=== PATIENT | female | born 1960 | race Caucasian/White ===

== ENCOUNTER 2019-11-15 22:08 | Emergency (ER) | payer MEDICAID, SELFPAY | END 2019-11-16 01:53 | disposition admitted as inpatient to this hospital (09) | LOC: ER 11-20 09:53 | PROVIDERS: Emergency Provider Emergency Medicine; Family Provider Family Medicine; PCP Family Medicine | DX: F41.9 Anxiety disorder, unspecified (principal); R45.851 Suicidal ideations; F17.210 Nicotine dependence, cigarettes, uncomplicated | CPT/HCPCS: 12345; 36415; 71045; 80053; 80307; 85025; 96372; 99284; 99285; J1885 ==

== ENCOUNTER 2019-11-15 22:08 | Inpatient (IN) | payer MEDICAID, SELFPAY ==
[2019-11-15 22:09] VITALS: BP 150/113; PULSE 94; RESP 18; TEMP 36.5; O2SAT 96; BMI 34.9
--- NOTE | 2019-11-15 22:20 | W.ED.PSYCH ---
HPI - Psych General: Chief Complaint: Psychiatric Symptoms Stated Complaint: MHE Time Seen by Provider: 11/15/19 22:13 Source: patient Mode of arrival: ambulatory Limitations: no limitations History of Present Illness: HPI Narrative: 59-year-old female who states she was living in a skilled nursing and did not like the way they took care of her and had left today. She states that she was supposed to meet her friend at [facility] and went to [facility] and friend did not pick her up. [employer] were called and they brought her here. She denies any suicidality or homicidality. She states she just needs her psych meds refilled. She is able answer all my questions here appropriately. Associated symptoms: Deny depression Review of Systems Const: Denies: fever, chills, body aches or change in appetite Eyes: Denies: blurry vision or eye discomfort ENMT: Denies: throat pain or dental pain Card: Denies: chest pain Resp: Denies: shortness of breath GI: Denies: abdominal pain, nausea, vomiting or diarrhea : Denies: painful urination Musc: Denies: neck pain or back pain Skin/Breast: Denies: rash Neuro: Denies: headache Psych: Reports: anxiety; Denies: depression Beau/Lymph: Denies: easy bruising All/Imm: Denies: hives PFSH ED PFSH: Social History Smoking and tobacco status: current every day smoker Physical Exam Const: COMMON NORMALS: no apparent distress, oriented x3 and healthy appearing HENMT: COMMON NORMALS: normocephalic and head/scalp atraumatic HEAD & SCALP: normocephalic and atraumatic Eye: COMMON NORMALS: PERRL and EOMs intact bilaterally PUPIL: Yes PERRL Neck/C-Spine: COMMON NORMALS: full ROM and supple Chest: COMMONS NORMALS: inspection of chest normal and palpation of chest normal Resp: COMMON NORMALS: normal respiratory effort, no retractions, no use of accessory muscles and clear to auscultation bilaterally AUSCULTATION: clear to auscultation bilaterally Cardio: COMMON NORMALS: regular rate, regular rhythm and no murmurs RATE: regular rate RHYTHM: regular rhythm GI: COMMON NORMALS: normal to inspection, nondistended, normoactive bowel sounds, soft to palpation, non-tender and no masses PALPATION: Yes soft Extremity: COMMON NORMALS: normal to inspection and full ROM Neuro: COMMON NORMALS: oriented x3, moves all extremities and no focal motor deficits Psych: COMMON NORMALS: mental status grossly normal, thought process normal and cooperative MOOD & AFFECT: Yes anxious THOUGHT PROCESS: normal thought process Skin: COMMON NORMALS: no rashes or lesions noted and no wounds GENERAL SKIN EXAM: no rashes or lesions noted MDM - Psych MDM Narrative: Medical decision making narrative: Patient presents here initially wanting a medication refill. Upon discharge patient states that she has been having suicidal thoughts and wants to go to the MPU unit. Patient is voluntarily wants to be placed there. Spoke to Dr. Serra and patient is medically cleared will admit there. Lab Data: Labs: Lab Results 11/15/19 11/15/19 11/16/19 Range/Units 23:48 23:48 00:01 WBC 17.9 H (4.0-10.0) 10^3/ uL RBC 4.96 (4.1-5.3) 10^6/u L Hgb 14.1 (11.5-15.3) g/dL Hct 43.3 (37.0-47.0) % MCV 87.3 (81-99) fL MCH 28.4 (28.0-34.0) pg MCHC 32.6 (30.0-36.0) g/dL RDW 12.9 (12.1-15.1) % Plt Count 363 (130-400) 10^3/c mm MPV 8.6 (7.4-10.4) fL Neut % (Auto) 69.6 % Lymph % (Auto) 19.5 % [place] % (Auto) 8.8 % Eos % (Auto) 1.2 % Baso % (Auto) 0.3 % Neut # (Auto) 12.5 H (1.8-7.7) 10^3/u L Lymph # (Auto) 3.5 (0.8-4.8) 10^3/u L [place] # (Auto) 1.6 H (0.2-0.9) 10^3/u L Eos # (Auto) 0.2 (0.0-0.8) 10^3/u L Baso # (Auto) 0.1 (0.0-0.1) 10^3/u L Nucleated RBC % (a uto) 0 % Nucleated RBCs # 0.0 /100WBC Sodium 137 (136-145) mmol/L Potassium 4.0 (3.5-5.1) mmol/L Chloride 102 (98-107) mmol/L Carbon Dioxide 21 L (22-29) mmol/L Anion Gap 18.0 (5-19) BUN 16 (6-20) mg/dL Creatinine 0.7 (0.5-0.9) mg/dL GFR Calculation 86.2 L (90-130) mL/min Glucose 104 (65-115) mg/dL Calculated Osmolal ity 281 L (285-295) mOsm/k g Calcium 10.1 (8.5-10.5) mg/dL Total Bilirubin 0.6 (0.15-1.2) mg/dL AST 20 (0-32) U/L ALT 17 (0-33) U/L Alkaline Phosphata se 115 H (35-105) IU/L Total Protein 7.5 (6.6-8.7) g/dL Albumin 4.2 (3.5-5.2) g/dL Globulin 3.3 (1.3-4.6) g/dL Urine Color (Yellow) Urine Appearance (CLEAR) Urine pH (5-7) Ur Specific Gravit y (1.005-1.030) Urine Protein (Negative) Urine Glucose (UA) (Normal) Urine Ketones (Negative) Urine Blood (Negative) Urine Nitrate (Negative) Urine Bilirubin (NEGATIVE) Urine Urobilinogen (Negative) mg/dL Ur Leukocyte Rosie ase (Negative) Urine RBC (0-2) /hpf Urine WBC (0-5) /hpf Ur Squamous Epith Cells (0-5) Amorphous Sediment Urine Bacteria (NONE) Salicylates < 0.3 L (3-10) mg/dL Urine Opiates Scre en Negative (Negative) ng/mL Acetaminophen < 5.0 L (10-30) ug/mL Ur Barbiturates Sc reen Negative (Negative) ng/mL Ur Phencyclidine S crn Negative (Negative) ng/mL Ur Amphetamines Sc reen Negative (Negative) ng/mL U Benzodiazepines Scrn Positive H (Negative) ng/mL Urine Cocaine Scre en Negative (Negative) ng/mL U Marijuana (THC) Screen Negative (Negative) ng/mL Ethyl Alcohol < 10 (0-10) mg/dL 11/16/19 Range/Units 00:01 WBC (4.0-10.0) 10^3/ uL RBC (4.1-5.3) 10^6/u L Hgb (11.5-15.3) g/dL Hct (37.0-47.0) % MCV (81-99) fL MCH (28.0-34.0) pg MCHC (30.0-36.0) g/dL RDW (12.1-15.1) % Plt Count (130-400) 10^3/c mm MPV (7.4-10.4) fL Neut % (Auto) % Lymph % (Auto) % [place] % (Auto) % Eos % (Auto) % Baso % (Auto) % Neut # (Auto) (1.8-7.7) 10^3/u L Lymph # (Auto) (0.8-4.8) 10^3/u L [place] # (Auto) (0.2-0.9) 10^3/u L Eos # (Auto) (0.0-0.8) 10^3/u L Baso # (Auto) (0.0-0.1) 10^3/u L Nucleated RBC % (a uto) % Nucleated RBCs # /100WBC Sodium (136-145) mmol/L Potassium (3.5-5.1) mmol/L Chloride (98-107) mmol/L Carbon Dioxide (22-29) mmol/L Anion Gap (5-19) BUN (6-20) mg/dL Creatinine (0.5-0.9) mg/dL GFR Calculation (90-130) mL/min Glucose (65-115) mg/dL Calculated Osmolal ity (285-295) mOsm/k g Calcium (8.5-10.5) mg/dL Total Bilirubin (0.15-1.2) mg/dL AST (0-32) U/L ALT (0-33) U/L Alkaline Phosphata se (35-105) IU/L Total Protein (6.6-8.7) g/dL Albumin (3.5-5.2) g/dL Globulin (1.3-4.6) g/dL Urine Color Yellow (Yellow) Urine Appearance Cloudy (CLEAR) Urine pH 7 (5-7) Ur Specific Gravit y 1.015 (1.005-1.030) Urine Protein Neg (Negative) Urine Glucose (UA) Norm (Normal) Urine Ketones Negative (Negative) Urine Blood Neg (Negative) Urine Nitrate Negative (Negative) Urine Bilirubin Neg (NEGATIVE) Urine Urobilinogen Norm (Negative) mg/dL Ur Leukocyte Rosie ase Negative (Negative) Urine RBC 0-4 H (0-2) /hpf Urine WBC 0-4 H (0-5) /hpf Ur Squamous Epith Cells 0-4 H (0-5) Amorphous Sediment 2+ Urine Bacteria 1+ H (NONE) Salicylates (3-10) mg/dL Urine Opiates Scre en (Negative) ng/mL Acetaminophen (10-30) ug/mL Ur Barbiturates Sc reen (Negative) ng/mL Ur Phencyclidine S crn (Negative) ng/mL Ur Amphetamines Sc reen (Negative) ng/mL U Benzodiazepines Scrn (Negative) ng/mL Urine Cocaine Scre en (Negative) ng/mL U Marijuana (THC) Screen (Negative) ng/mL Ethyl Alcohol (0-10) mg/dL Discharge Plan Discharge Patient Disposition: Admitted As Inpatient Clinical Impression: Anxiety, Suicidal ideation Condition: Stable Referrals: Nicole Louis MD [Primary Care Provider] - 4-7 days Discharge Diet: Advance as tolerated Discharge Activity: Resume usual activity Patient Instructions: Anxiety (ED) Coding Level of Care Code ED Tool Keeper for Dorcas Fwnghia Exam Comprehensive
[2019-11-15] MEDS: LORazepam 1 mg Tablet PO (22:45)
--- NOTE | 2019-11-15 22:56 | PC.NURSE ---
Upon discharge, patient began getting upset stating that she has to be admitted to the psych unit because she has no where to go, no money to pay for the meds, no car to get anywhere. I'm homeless and need to go to the psych unit now. and the doctor didn't do anything about my back. ED physician was notified and spoke with patient again.
[2019-11-15] MEDS: HYDROcodone-acetaminophen 7.5-325 mg Tablet 1 TAB PO (23:10)
[2019-11-16 00:02] LABS: Basophils # 0.1 10^3/uL (0.0-0.1); Basophils % 0.3 %; Eosinophils # 0.2 10^3/uL (0.0-0.8); Eosinophils % 1.2 %; Hematocrit 43.3 % (37.0-47.0); Hemoglobin 14.1 g/dL (11.5-15.3); Lymphocytes # 3.5 10^3/uL (0.8-4.8); Lymphocytes % 19.5 %; Mean Corpuscular HGB Conc 32.6 g/dL (30.0-36.0); Mean Corpuscular Hemoglobin 28.4 pg (28.0-34.0); Mean Corpuscular Volume 87.3 fL (81-99); Mean Platelet Volume 8.6 fL (7.4-10.4); Monocytes # 1.6 10^3/uL (0.2-0.9); Monocytes % 8.8 %; Neutrophils # 12.5 10^3/uL (1.8-7.7); Neutrophils % 69.6 %; Nucleated Red Blood Cells % 0 %; Platelet Count 363 10^3/cmm (130-400); Red Blood Count 4.96 10^6/uL (4.1-5.3); Red Cell Distribution Width 12.9 % (12.1-15.1); White Blood Count 17.9 10^3/uL (4.0-10.0)
--- NOTE | 2019-11-16 00:03 | XR_ITS ---
WS: [id number] PORTABLE CHEST HISTORY: Psychiatric evaluation. Back pain. COMPARISON: 02/02/2019 Mild pulmonary hyperexpansion. No pneumonia. Chronic emphysema. No pleural effusion or pneumothorax. Cardiac size: Normal. Mediastinum/Aorta: Normal mediastinum. Severe degenerative changes at the RIGHT humeral head. Subchondral cystic changes and sclerosis invol ving the humeral head. XR/XR chest 1V portable [id number] IMPRESSION: 1. Chronic emphysema with no pneumonia. 2. Severe degenerative changes at the RIGHT humeral head.
[2019-11-16 00:10] LABS: Alanine Aminotransferase 17 U/L (0-33); Albumin Level 4.2 g/dL (3.5-5.2); Alkaline Phosphatase 115 IU/L (35-105); Aspartate Amino Transferase 20 U/L (0-32); Blood Urea Nitrogen 16 mg/dL (6-20); Calcium 10.1 mg/dL (8.5-10.5); Carbon Dioxide 21 mmol/L (22-29); Chloride 102 mmol/L (98-107); Globulin 3.3 g/dL (1.3-4.6); Glomerular Filtration Rate 86.2 mL/min (90-130); Glucose 104 mg/dL (65-115); Osmolality Calculated 281 mOsm/kg (285-295); Sodium 137 mmol/L (136-145); Total Bilirubin 0.6 mg/dL (0.15-1.2); Total Protein 7.5 g/dL (6.6-8.7)
[2019-11-16 00:26] LABS: Acetaminophen < 5.0 ug/mL (10-30); Alcohol Level < 10 mg/dL (0-10); Salicylate < 0.3 mg/dL (3-10)
[2019-11-16] MEDS: ketorolac 30 mg/mL INJ IM (00:26)
[2019-11-16 00:34] LABS: Amphetamines Screen Urine Negative (Negative); Barbiturates Screen Urine Negative (Negative); Benzodiazepines Screen Urine Positive (Negative); Cocaine Screen Urine Negative (Negative); Opiate Screen Urine Negative (Negative); PCP Screen Urine Negative (Negative); THC Screen Urine Negative (Negative)
[2019-11-16 00:35] LABS: Amorphous Sediment Urine 2+; Bacteria Urine 1+; Bilirubin Urine Neg (NEGATIVE); Blood Urine Neg (Negative); Glucose Urine UA Norm (Normal); Ketones Urine Negative (Negative); Leukocyte Esterase Urine Negative (Negative); Nitrate Urine Negative (Negative); Protein Urine Neg (Negative); RBC Urine 0-4 /hpf (0-2); Specific Gravity, Urine 1.015 (1.005-1.030); Squamous Epithelial Cell Urine 0-4 (0-5); Urine Appearance Cloudy (CLEAR); Urine Color Yellow (Yellow); Urobilinogen Urine Norm (Negative); WBC Urine 0-4 /hpf (0-5); pH Urine 7 (5-7)
--- NOTE | 2019-11-16 01:47 | PC.NURSE ---
Patient belongings placed in plastic bag with C logo and patient sticker. Bags placed in filing cabinet for safe keeping. 2 bags total.
--- NOTE | 2019-11-16 01:47 | PC.NURSE ---
Patient in paper scrub bottoms and gown top due to scrub top not fitting patient.
[2019-11-16 01:59] VITALS: BP 108/76; PULSE 101; RESP 20; TEMP 36.9; O2SAT 97
[2019-11-16] MEDS: quetiapine 300 mg Tablet PO ×2 (02:37→08:18)
[2019-11-16] MEDS: hyDROXYzine 25 mg Capsule 50 MG PO ×2 (02:37→15:10)
[2019-11-16 05:12] VITALS: BP 121/86; PULSE 101; RESP 17; TEMP 36.4; O2SAT 95
[2019-11-16] MEDS: fluoxetine 20 mg Capsule 40 MG PO ×2 (08:17→15:55)
[2019-11-16] MEDS: lamoTRIgine 25 mg Tablet 75 MG PO (08:17)
[2019-11-16] MEDS: buPROPion SR (12 HR) 150 mg Tablet PO ×2 (08:17→17:23)
[2019-11-16] MEDS: acetaminophen 325 mg Tablet 650 MG PO (09:01)
--- NOTE | 2019-11-16 10:06 | P.HP_ITS ---
Providers/Chief Complaint Admitting Physician: Herber Louis MD Primary Care Provider: Nicole Louis MD Chief Complaint: MHE HPI NPU History of Present Illness Chief complaint: ?I?m living in a mcc. I don?t need to be living in a mcc.? History of present illness: Dalila Samuels is a 59-year-old woman who has rejected all friends and family and now finds herself alone and unable to meet her basic needs. She is apparently living in a mcc in [place]. She says that she is capable of living on her own and wants to leave. However no one will help her apply for housing. No one will help her get to her appointments. Yesterday, she was told by a friend that she could come live with a friend. Dalila was able to make it to [facility] to get refills on her medications. It is unclear whether she ever got her medications refilled. But her friend with not come and pick her up. She throw fit. The police brought her to the emergency room. Emergency room staff felt that she would do well to the psychiatric unit. She denies suicidal or homicidal ideation. She admits to being chronically depressed. However she insists that her medications are stable and in insistent that if she doesn?t get her 80 mg of Prozac, she will become clinically depressed tomorrow. She claims that she is on Suboxone but cannot name any physician who was prescribing it. She said that she goes to a pain clinic in [place]. Though she cannot get any assistance in any other aspect of her life, she apparently is able to make monthly trips to [place] and says ?they come and get me.? ER physician note: HPI Narrative: 59-year-old female who states she was living in a mcc and did not like the way they took care of her and had left today. She states that she was supposed to meet her friend at [facility] and went to [facility] and friend did not pick her up. [employer] were called and they brought her here. She denies any suicidality or homicidality. She states she just needs her psych meds refilled. She is able answer all my questions here appropriately. ER Nursing Note: Upon discharge, patient began getting upset stating that she has to be admitted to the psych unit because she has no where to go, no money to pay for the meds, no car to get anywhere. I'm homeless and need to go to the psych unit now. and the doctor didn't do anything about my back. ED physician was notified and spoke with patient again. Mental health history: No prior psychiatric admissions. No record of outpatient treatment. Social history: The patient is reluctant to talk about her personal history other than her current problems and barriers to getting her needs met. She grew up in [place]. She had a sister with whom she was close who last year. With the assistance of social media marketing manager, we were able to find out that she had been in a mcc after she was diagnosed with cellulitis last fall and placed in the intensive care unit. Since that time, she has insisted that people help her to return to independent living. However she has sabotaged his efforts likely through her own obstinance and general attitude of refusal to do what she is told. She now finds herself homeless and without any means of support. Legal history: no history of criminal activity or arrest in [place] [facility]. Mental Status Exam: The patient is encountered sitting in a wheelchair. She is in no apparent physical distress. Eye contact is good. There is no attention to internal stimuli. She is not believed to be a reliable informant as her recall and memory are quite selective. Appearance: hygiene is fair; no gross neurological deficits., gait is unremarkable; AIMS=0 Speech: Speech is of normal rate and rhythm and easily understood. Thought processes: Thought processes are abstract. Judgment is adequate for sa fety. Associations: intact Psychotic processes: There is no indication of guarding or paranoia. There is no attention to the internal stimuli. Auditory and visual hallucinations are denied. Judgment: Insight is fair. Problem solving skills are adequate for safety. Orientation: The patient is oriented to person, place time and situation. Memory: no deficits noted in immediate, intermediate, or remote spheres. Attention: The patient is alert and interpersonally engaged. Language: Verbalizations are coherent. Fund of knowledge: Fund of knowledge is adequate. Affect/Mood: Affect is consistent with a depressed mood. She denied suicidal ideation Affective range constricted Psychosis: perception unimpaired except through cognitive distortion; reality testing intact. Meds NPU Allergies Allergy/AdvReac Type Severity Reaction Status Date / Time Penicillins Allergy ALGY-Rash Verified 11/15/19 22:18 PFSH NPU PFSH: Social History Smoking and tobacco status: current every day smoker Vitals/I&O/Wt Last Vital Signs Temp 97.5 F L 11/16/19 05:12 Pulse 101 H 11/16/19 05:12 Resp 17 11/16/19 05:12 BP 121/86 11/16/19 05:12 Pulse Ox 95 11/16/19 05:12 Weight last 48 hrs Weight 104.326 kg Data NPU : 11/15/19 23:48 11/15/19 23:48 A&P Additional A&P Information Diagnoses: Adjustment disorder with disturbance of mood Assessment: Dalila Samuels is a sad disabled woman who finds herself in a situation in which she has become estranged from anyone that would provide assistance in accomplishing her goals of being released from the mcc in finding a place to live. She has the cognitive ability and the problem-solving skills to accomplish her tasks. That is exemplified by her ability to limit information provided to this provider such that is most likely to provide her with the medications which she desires. Unfortunately, she has personality issues that prevent her from interacting with available services will provide significant benefit in acquiring her goal of independent living. She has now lost her placement and is not capable of managing on her own partially due to the absence of services in the environment of a pandemic.. Treatment plan: Due to the psychiatric conditions and treatment listed in the Assessment and Plan - the patient is not an imminent risk to self or others and, in fact, is free of issues that require psychiatric attention at this time. Her psychosocial issues are considerable and it is reasonable to afford her access to the services available now that she is here. . Will provide a safe and therapeutic environment for patient.. Will continue inpatient treatment to allow for medication adjustment and monitoring. Will stop q15 min safety checks. Will continue current medications and monitor for medication side effects. Monitor patient's mood, sleep, appetite, and behavior closely. Encourage patient to participate in individual and group therapeutic sessions on the felipe. Estimated length of stay 5 days The expected benefits and potential side effects of patient's psychiatric medications were discussed with the patient. The patient understands and consents to treatment. CRITERIA FOR DISCHARGE: stable on medications and no longer an imminent risk Involuntary Hold Information 96 Hour Hold: 96 Hour Involuntary Admission: No Attestations NPU Medical Necessity Statement*: Patient will remain in the hospital of the 4-5 days until we can find a placement that will allow her to remain out of harm's way. Coding Level of Care Code Acute Book Jogger for Dorcas Oliver
[2019-11-16] MEDS: nicotine 21 mg Patch 1 PATCH TRANSDERMA (13:14)
[2019-11-16 14:00] VITALS: BP 102/66; PULSE 96; RESP 20; TEMP 36.9; O2SAT 92
[2019-11-16] MEDS: pregabalin 25 mg Capsule 50 MG PO ×2 (14:17→17:23)
[2019-11-16] MEDS: famotidine 20 mg Tablet PO (14:17)
[2019-11-16] MEDS: lisinopril 10 mg Tablet PO (14:17)
[2019-11-16 20:28] VITALS: BP 107/60; PULSE 98; RESP 17; TEMP 36.6; O2SAT 94
[2019-11-16] MEDS: quetiapine 300 mg Tablet 600 MG PO (20:50)
[2019-11-16] MEDS: blistex lip oint 7 gm Tube 1 APPLIC TOPICAL (21:55)
[2019-11-17] MEDS: pregabalin 25 mg Capsule 50 MG PO ×2 (08:40→14:33)
[2019-11-17] MEDS: fluoxetine 20 mg Capsule 80 MG PO (08:41)
[2019-11-17] MEDS: famotidine 20 mg Tablet PO (08:41)
[2019-11-17] MEDS: lamoTRIgine 25 mg Tablet 75 MG PO (08:42)
[2019-11-17] MEDS: buPROPion SR (12 HR) 150 mg Tablet PO (08:42)
[2019-11-17] MEDS: lisinopril 10 mg Tablet PO (08:42)
[2019-11-17] MEDS: nicotine 2 mg Gum BUCCAL (11:05)
[2019-11-17] MEDS: hyDROXYzine 25 mg Capsule 50 MG PO (13:17)
--- NOTE | 2019-11-17 13:17 | PC.NURSE ---
PRN VISTARIL 50 MG GIVEN PO PER PT C/O ANXIETY. PT DEMANDING WITH STAFF, HIT THE NURSES STATION WINDOW YELLING GIVE ME SOMETHING FOR MY ANXIETY NOW! WILL CONT TO MONITOR.
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
[2019-11-17 14:45] VITALS: BP 107/60; PULSE 98; RESP 17; TEMP 36.6; O2SAT 94
[2019-11-23 14:30] VITALS: BP 107/60; PULSE 98; RESP 17; TEMP 36.6; O2SAT 94
--- NOTE | 2019-11-23 15:05 | PC.NURSE ---
all meds called [facility] to [facility] [place] per physician request, as pt called and stated she never got [facility] scripts.
== END 2019-11-17 17:01 | disposition home or self-care (01) | DRG 882 ==
LOC: ER 23:00 → NP 11-16 01:04
PROVIDERS: Admitting Provider Psychiatry & Neurology Psychiatry; Emergency Provider Emergency Medicine; Family Provider Family Medicine; PCP Family Medicine; Visit Provider Psychiatry & Neurology Psychiatry
DX: F43.24 Adjustment disorder with disturbance of conduct (principal); Z59.0 Homelessness; F32.9 Major depressive disorder, single episode, unspecified; F17.210 Nicotine dependence, cigarettes, uncomplicated
CPT/HCPCS: 12345; 36415; 71045; 80053; 80306; 80307; 81001; 85025; 96372; 99284; J1885

== ENCOUNTER → 2019-12-29 09:58 | Outpatient (BNVA) | payer MEDICAID, SELFPAY | PROVIDERS: Family Provider Family Medicine; PCP Family Medicine; Visit Provider Counselor Professional | DX: F33.2 Major depressive disorder, recurrent severe without psychotic features (principal); Z59.0 Homelessness | CPT/HCPCS: 90791 ==

== ENCOUNTER 2020-02-22 15:51 | Emergency (ER) | payer MEDICAID, SELFPAY ==
[2020-02-22 15:55] VITALS: BP 92/69; PULSE 79; RESP 16; TEMP 36.8; O2SAT 94; BMI 34.9
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
[2020-02-22] MEDS: sulfamethoxazole-trimeth DS 160-800 mg Tablet 1 TAB PO (17:00)
[2020-02-22 17:18] VITALS: BP 157/75; PULSE 81; RESP 17; O2SAT 98
== END 2020-02-22 17:20 | disposition home or self-care (01) ==
LOC: ER 16:29
PROVIDERS: Emergency Provider Emergency Medicine; PCP Family Medicine
DX: G89.29 Other chronic pain (principal); M25.572 Pain in left ankle and joints of left foot; L03.115 Cellulitis of right lower limb; J44.9 Chronic obstructive pulmonary disease, unspecified; Z89.519 Acquired absence of unspecified leg below knee; Z87.891 Personal history of nicotine dependence
CPT/HCPCS: 12345; 99282; 99283

== ENCOUNTER 2020-02-22 18:40 | Emergency (ER) | payer MEDICAID, SELFPAY ==
[2020-02-22 18:52] VITALS: BP 165/77; PULSE 93; RESP 14; TEMP 36.2; O2SAT 100; BMI 34.9
== END 2020-02-22 18:56 | disposition left against medical advice (07) ==
LOC: ER 19:08
PROVIDERS: Emergency Provider Emergency Medicine; PCP Family Medicine
DX: Z53.21 Procedure and treatment not carried out due to patient leaving prior to being seen by health care provider (principal)
CPT/HCPCS: 99281

== ENCOUNTER → 2020-06-24 12:58 | Outpatient (BNVA) | payer MEDICAID, SELFPAY | PROVIDERS: PCP Family Medicine; Referring Provider Family Medicine; Visit Provider Podiatrist Foot & Ankle Surgery | DX: M12.872 Other specific arthropathies, not elsewhere classified, left ankle and foot (principal) | CPT/HCPCS: 73610 ==

== ENCOUNTER 2020-08-01 00:35 | Emergency (ER) | payer MEDICAID, SELFPAY ==
[2020-08-01 00:37] VITALS: BP 165/137; PULSE 92; RESP 16; TEMP 36.9; O2SAT 99; BMI 37.9
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
[2020-08-01] MEDS: amlodipine 10 mg Tablet PO (01:25)
[2020-08-01] MEDS: ketorolac 60 mg/2 mL INJ IM (01:29)
[2020-08-01] MEDS: pregabalin 100 mg Capsule 200 MG PO (01:29)
== END 2020-08-01 01:30 | disposition home or self-care (01) ==
PROVIDERS: Emergency Provider Nurse Practitioner Family; PCP Family Medicine
DX: G89.29 Other chronic pain (principal); M25.572 Pain in left ankle and joints of left foot; J44.9 Chronic obstructive pulmonary disease, unspecified; Z89.519 Acquired absence of unspecified leg below knee; Z87.891 Personal history of nicotine dependence
CPT/HCPCS: 12345; 96372; 99281; 99283; J1885

== ENCOUNTER → 2020-09-02 10:33 | Outpatient (BNVA) | payer MEDICAID, SELFPAY | PROVIDERS: PCP Family Medicine; Visit Provider Family Medicine | DX: M25.572 Pain in left ankle and joints of left foot (principal); K21.9 Gastro-esophageal reflux disease without esophagitis; J41.0 Simple chronic bronchitis; J44.9 Chronic obstructive pulmonary disease, unspecified; Z13.1 Encounter for screening for diabetes mellitus; G89.4 Chronic pain syndrome; M47.816 Spondylosis without myelopathy or radiculopathy, lumbar region; F41.9 Anxiety disorder, unspecified; M47.26 Other spondylosis with radiculopathy, lumbar region; Z13.220 Encounter for screening for lipoid disorders; Z13.6 Encounter for screening for cardiovascular disorders | CPT/HCPCS: 80053; 85025 ==

== ENCOUNTER → 2020-10-23 09:14 | Outpatient (BNVA) | payer MEDICAID, SELFPAY | PROVIDERS: PCP Family Medicine; Visit Provider Family Medicine | DX: K21.9 Gastro-esophageal reflux disease without esophagitis (principal); M25.572 Pain in left ankle and joints of left foot; J41.0 Simple chronic bronchitis; G89.4 Chronic pain syndrome; M47.816 Spondylosis without myelopathy or radiculopathy, lumbar region; Z79.899 Other long term (current) drug therapy | CPT/HCPCS: 80061; 83036 ==

== ENCOUNTER → 2021-01-13 15:03 | Outpatient (BNVA) | payer MEDICAID, SELFPAY | PROVIDERS: PCP Family Medicine; Visit Provider Family Medicine | DX: G89.4 Chronic pain syndrome (principal); M25.572 Pain in left ankle and joints of left foot; J41.0 Simple chronic bronchitis; B18.2 Chronic viral hepatitis C; I73.9 Peripheral vascular disease, unspecified; M47.26 Other spondylosis with radiculopathy, lumbar region; Z89.511 Acquired absence of right leg below knee; Z74.09 Other reduced mobility; Z78.9 Other specified health status; R60.0 Localized edema; K21.9 Gastro-esophageal reflux disease without esophagitis; E78.1 Pure hyperglyceridemia; R11.0 Nausea; M47.816 Spondylosis without myelopathy or radiculopathy, lumbar region | CPT/HCPCS: 80053; 85025; 87522 ==

== ENCOUNTER 2021-05-06 23:43 | Inpatient (IN) | payer MEDICAID, SELFPAY ==
[2021-05-06 23:48] VITALS: BP 115/77; PULSE 103; RESP 28; TEMP 37.2; O2SAT 90; BMI 40.3
--- NOTE | 2021-05-06 23:57 | XRR_ITS ---
PROCEDURE INFORMATION: Exam: XR Chest Exam date and time: 05/06/2021 11:57 PM Age: 61 years old Clinical indication: Cough; Additional info: Dyspnea TECHNIQUE: Imaging protocol: XR of the chest. Views: 1 view. COMPARISON: CR XR chest 1V portable [id number] 11/16/2019 1:04 AM FINDINGS: Lungs: Mild left basilar atelectasis and/or infiltrate and/or effusion. Increased bilateral perihilar opacities and lung opacities most consistent with mild bilateral pneumonia. Pleural spaces: Unremarkable. No pleural effusion. No pneumothorax. Heart/Mediastinum: Unremarkable. No cardiomegaly. Bones/joints: Unremarkable. Other findings: Patient rotation to the right. XR/XR chest 1V portable [id number] IMPRESSION: 1. Mild left basilar atelectasis and/or infiltrate and/or effusion. 2. Increased bilateral perihilar opacities and lung opacities most consistent with mild bilateral pneumonia. Radiation Dose CTDIVOL = (mGy): DLP = (mGy-cm)
--- NOTE | 2021-05-06 23:57 | ECG_ITS ---
[facility] Test Date: 2021-05-06 Pat Name: Dalila Samuels Department: Room: Gender: Female Supervisor Type Photography: : 1960 Requested By: Alejandro Presley Order Number: [id number] Danae MD: Diamond Brewer M.D. Measurements Intervals [place] Rate: 98 P: 58 OR: 184 QRS: 48 QRSD: 102 T: 57 QT: 360 QTc: 461 Interpretive Statements SINUS RHYTHM INTERPRETATION BASED ON A DEFAULT AGE OF 40 YEARS Compared to ECG 01/26/2019 06:12:43 Intraventricular conduction delay no longer present Electronically Signed On 05-07-2021 23:06:20 CDT by Diamond Brewer M.D. [id number]
--- NOTE | 2021-05-06 23:57 | ECG_ITS ---
[facility] Test Date: 2021-05-07 Pat Name: Dalila Samuels Department: Room: Gender: Female Junior Php Developer: : 1960 Requested By: Alejandro Presley Order Number: [id number] Danae MD: Diamond Brewer M.D. Measurements Intervals [place] Rate: 95 P: 61 GA: 175 QRS: 49 QRSD: 106 T: 60 QT: 372 QTc: 470 Interpretive Statements SINUS RHYTHM Compared to ECG 05/06/2021 23:53:27 No significant changes Electronically Signed On 05-07-2021 23:00:56 CDT by Diamond Brewer M.D. [email or web address]
[2021-05-07] VITALS (46 sets, daily range): BP systolic 105–175; BP diastolic 64–120; PULSE 67–106; RESP 19–44; TEMP 36.7–37.6; O2SAT 77–99
[2021-05-07 00:32] LABS: Basophils # 0.1 10^3/uL (0.0-0.1); Basophils % 0.4 %; Eosinophils # 0.2 10^3/uL (0.0-0.8); Eosinophils % 1.2 %; Hematocrit 32.9 % (37.0-47.0); Hemoglobin 10.7 g/dL (11.5-15.3); Lymphocytes # 1.4 10^3/uL (0.8-4.8); Lymphocytes % 9.9 %; Mean Corpuscular HGB Conc 32.5 g/dL (30.0-36.0); Mean Corpuscular Hemoglobin 30.1 pg (28.0-34.0); Mean Corpuscular Volume 92.4 fl (81-99); Mean Platelet Volume 9.3 fL (7.4-10.4); Monocytes % 7.3 %; Neutrophils # 11.17 10^3/uL (1.8-7.7); Neutrophils % 80.3 %; Nucleated Red Blood Cells % 0 %; Platelet Count 309 10^3/cmm (130-400); Red Blood Count 3.56 10^6/uL (4.1-5.3); Red Cell Distribution Width 13.2 % (12.1-15.1); White Blood Count 13.9 10^3/uL (4.0-10.0)
[2021-05-07 00:49] LABS: SARS Covid-2 Antigen Negative (Negative)
[2021-05-07 00:57] LABS: Troponin(5th) Baseline 8 ng/L (0-10)
[2021-05-07 01:07] LABS: Anion Gap 14.9 (5-19); Blood Urea Nitrogen 7 mg/dL (6-20); Carbon Dioxide 23 mmol/L (22-29); Chloride 106 mmol/L (98-107); Glomerular Filtration Rate 126.3 mL/min (90-130); Glucose 124 mg/dL (65-115); INR 1.04 (0.8-1.2); NT Pro B Type Natriuretic Pept 276 pg/mL (0-125); Osmolality Calculated 289 mOsm/kg (285-295); Potassium 3.9 mmol/L (3.5-5.1); Sodium 140 mmol/L (136-145)
[2021-05-07 01:08] LABS: Partial Thromboplastin Time 35.7 SECONDS (23.9-36.7)
[2021-05-07 01:11] LABS: D Dimer 1.22 ug/mIFEU (0-0.59)
[2021-05-07 01:13] LABS: Fibrinogen 562 mg/dL (174-498)
[2021-05-07] MEDS: cefTRIAXone 1,000 MG in sodium chloride 0.9% (plus) 50 ML 100 MG IV (01:14)
[2021-05-07] MEDS: azithromycin 250 mg Tablet 500 MG PO (01:14)
--- NOTE | 2021-05-07 01:27 | CTR_ITS ---
PROCEDURE INFORMATION: Exam: CTA Chest With Contrast Exam date and time: 05/07/2021 1:27 AM Age: 61 years old Clinical indication: Cough and dyspnea and shortness of breath; Prior surgery; Surgery type: Gb; Patient HX: Severe SOB, with cough and dyspnea. History of copd. Struggling to maintain 90 percent spo2 on non-rebreather at 15l. Patient very anxious with substantial labored breathing. Barely able to tolerate laying supine and could not follow breathing instructions well. Best exam obtained. ; Additional info: Rule out pe TECHNIQUE: Imaging protocol: Computed tomographic angiography of the chest with contrast. 3D rendering (Not supervised by radiologist): MIP and/or 3D reconstructed images were created by the technologist. Radiation optimization: All CT scans at this facility use at least one of these dose optimization techniques: automated exposure control; mA and/or kV adjustment per patient size (includes targeted exams where dose is matched to clinical indication); or iterative reconstruction. Contrast material: OMNI 350; Contrast volume: 67 ml; Contrast route: INTRAVENOUS (IV); COMPARISON: CR (CHEST, ) 05/07/2021 12:41 AM RADIATION DOSE METRICS: Total DLP (mGy-cm): 875.21 FINDINGS: Pulmonary arteries: Evaluation of pulmonary arteries is somewhat limited secondary to respiratory motion. No pulmonary embolism. Aorta: No aortic dissection. Other arteries: Atherosclerotic coronary artery calcifications are present. There is mild atherosclerotic disease. Lungs: Hazy bilateral pulmonary opacities, with consolidation in the left lower lobe. Findings may represent community-acquired pneumonia versus COVID-19.. Pleural spaces: Unremarkable. No pneumothorax. No pleural effusion. Heart: Unremarkable. No cardiomegaly. No pericardial effusion. Lymph nodes: Unremarkable. No enlarged lymph nodes. Bones/joints: Unremarkable. No acute fracture. Soft tissues: Unremarkable. CT/CT angio chest PE protcl [id number] IMPRESSION: 1. Hazy bilateral pulmonary opacities, with consolidation in the left lower lobe. Findings may represent community-acquired pneumonia versus COVID-19.. 2. Evaluation of pulmonary arteries is somewhat limited secondary to respiratory motion. 3. No pulmonary embolism. 4. Atherosclerotic disease of the coronary arteries. 5. No aortic dissection. Radiation Dose CTDIVOL = (mGy): DLP = 875.21 (mGy-cm)
[2021-05-07 01:29] LABS: C Reactive Protein 127.4 mg/L (0.0-4.9); Ferritin 277 ng/mL (15-150); Lactate Dehydrogenase 391 U/L (135-214); Magnesium 1.9 mg/dL (1.7-2.3)
[2021-05-07 01:35] LABS: Procalcitonin 0.07 ng/mL (0-0.5)
[2021-05-07 02:11] LABS: NT Pro B Type Natriuretic Pept 284 pg/mL (0-125)
--- NOTE | 2021-05-07 02:28 | ED_ITS ---
HPI - General Adult General: Chief complaint: Shortness of Breath/Dyspnea Stated complaint: SOB Time Seen by Provider: 05/06/21 23:50 History of Present Illness: HPI narrative: Patient is a 61-year-old female history of COPD not currently on home oxygen presents the emergency room for evaluation dyspnea cough, hypoxemia. Patient states that he has not been feeling well for last 2 days has had increasing cough. Today, patient states that she could hardly breathe. Patient denies any fever/chills, nausea/vomiting, or diarrhea. Onset:2 days ago Duration:2 days Location:home Severity:moderate Review of Systems Narrative: Constitutional: No fever, no chills. HEENT: No vision changes CV: No chest pain, no palpitations PULM: +cough, +dyspnea. GI: No abdominal pain, no N/V/D. : No dysuria MSKEL: No muscle pain SKIN: No new rashes, no lesions. NEURO: No headache, no focal weakness. HEME: No visible bruises PSYCH: Normal mood PFSH ED PFSH: Medical History Borderline personality disorder Chronic idiopathic pain syndrome Chronic pain syndrome COPD (chronic obstructive pulmonary disease) DDD (degenerative disc disease), cervical DJD (degenerative joint disease), lumbar GERD (gastroesophageal reflux disease) Hepatitis C, chronic History of intravenous drug abuse Nicotine dependence, cigarettes, with other nicotine-induced disorders Opioid dependence, in remission Other stimulant dependence, in remission Psychiatric care PVD (peripheral vascular disease) with claudication Schizoaffective disorder, bipolar type Surgical History H/O tubal ligation Hx of BKA S/P cholecystectomy S/P tonsillectomy Family History Other CAD (coronary artery disease) Diabetes Lung disease Stroke Social History Smoking and tobacco status: current some day smoker cigarettes Years cigarettes smoked: 40 [ Other cigarette details: Hx of 1 PPD x 40 Years ] Quit status (tobacco): considering quitting Second hand smoke exposure: Yes Smoking risk assessment/counseling performed?: Yes Alcohol intake: former Counseling given: No Counseling given: No Lives independently: Yes Household members: none Marital status: Current occupational status: disabled History of recent travel: No Current gender identity: Female Female Reproductive History: Date of last menstrual period: 10/24/20 Spontaneous abortions: No Physical Exam Narrative: EXAM NARRATIVE: Head: Atraumatic Eyes: PERRL, conjunctiva without injection ENT: Mucous membrane moist NECK: Supple, ROM intact LUNGS: Coarse breath sounds b/l, +rhonchi CV: RRR ABDOMEN: Soft, nontender in all quadrants EXTREMITY: Normal ROM SKIN: No rash or erythema NEURO: Awake and alert, no focal motor deficits PSYCH: Normal mood and affect Course Vital Signs: Vital signs: Vital Signs Temperature 99.0 F 05/09/21 18:00 Pulse Rate 75 05/09/21 20:03 Respiratory Rate 18 05/09/21 20:04 Blood Pressure 119/72 05/09/21 19:00 Pulse Oximetry 92 05/09/21 20:04 MDM - General Adult MDM Narrative: Medical decision making narrative: 61-year-old female with history of COPD presented to emergency room with cough, dyspnea, and hypoxemia. On exam, patient is found to be satting at 80% on room air. Patient does not use home oxygen. Lungs coarse breath sounds with possible rhonchi. X-ray is consistent bilateral pneumonia. CTA chest showed similar finding. Patient has white count of 13.9, treated with azithromycin and ceftriaxone in the emergency room. Patient is Covid negative today. Given Decadron 6 mg and Ventolin for wheezing. Disposition: Admission for increased oxygen requirement. Lab Data: Labs: Lab Results 05/07/21 05/07/21 05/07/21 00:15 00:15 00:15 WBC 13.9 10^3/uL H 10 ^3/uL (4.0-10.0) RBC 3.56 10^6/uL L 10 ^6/uL (4.1-5.3) Hgb 10.7 g/dL L g/dL (11.5-15.3) Hct 32.9 % L % (37.0-47.0) MCV 92.4 fl fl (81-99) MCH 30.1 pg pg (28.0-34.0) MCHC 32.5 g/dL g/dL (30.0-36.0) RDW 13.2 % % (12.1-15.1) Plt Count 309 10^3/cmm 10^3 /cmm (130-400) MPV 9.3 fL fL (7.4-10.4) Neut % (Auto) 80.3 % % Lymph % (Auto) 9.9 % % [place] % (Auto) 7.3 % % Eos % (Auto) 1.2 % % Baso % (Auto) 0.4 % % Neut # (Auto) 11.17 10^3/uL H 1 0^3/uL (1.8-7.7) Lymph # (Auto) 1.4 10^3/uL 10^3/ uL (0.8-4.8) [place] # (Auto) 1.0 10^3/uL H 10^ 3/uL (0.2-0.9) Eos # (Auto) 0.2 10^3/uL 10^3/ uL (0.0-0.8) Baso # (Auto) 0.1 10^3/uL 10^3/ uL (0.0-0.1) Nucleated RBC % (a uto) 0 % % Nucleated RBCs # 0.0 /100WBC /100W BC PT INR APTT Fibrinogen D-Dimer Sodium 140 mmol/L mmol/L (136-145) Potassium 3.9 mmol/L mmol/L (3.5-5.1) Chloride 106 mmol/L mmol/L (98-107) Carbon Dioxide 23 mmol/L mmol/L (22-29) Anion Gap 14.9 (5-19) BUN 7 mg/dL mg/dL (6-20) Creatinine 0.5 mg/dL mg/dL (0.5-0.9) GFR Calculation 126.3 mL/min mL/m in (90-130) Glucose 124 mg/dL H mg/dL (65-115) Calculated Osmolal ity 289 mOsm/kg mOsm/ kg (285-295) Calcium 9.0 mg/dL mg/dL (8.5-10.5) Magnesium Ferritin Lactate Dehydrogen ase Troponin T Gen 5 n g/L Troponin T Baselin e 8 ng/L ng/L (0-10) C-Reactive Protein NT-Pro-B Natriuret Pep 276 pg/mL H pg/mL (0-125) Procalcitonin Hepatitis A IgM Ab Hep Bs Antigen Hep B Core IgM Ab Hepatitis C Antibo dy HIV 1&2 Ab & HIV 1 Ag HIV 1&2 Antibody SARS-CoV-2 Ag (Rap id) 05/07/21 05/07/21 05/07/21 00:15 00:15 00:15 WBC RBC Hgb Hct MCV MCH MCHC RDW Plt Count MPV Neut % (Auto) Lymph % (Auto) [place] % (Auto) Eos % (Auto) Baso % (Auto) Neut # (Auto) Lymph # (Auto) [place] # (Auto) Eos # (Auto) Baso # (Auto) Nucleated RBC % (a uto) Nucleated RBCs # PT 13.90 SECONDS SEC ONDS (12.1-14.9) INR 1.04 (0.8-1.2) APTT 35.7 SECONDS SECO NDS (23.9-36.7) Fibrinogen 562 mg/dL H mg/dL (174-498) D-Dimer 1.22 ug/mIFEU H u g/mIFEU (0-0.59) Sodium Potassium Chloride Carbon Dioxide Anion Gap BUN Creatinine GFR Calculation Glucose Calculated Osmolal ity Calcium Magnesium 1.9 mg/dL mg/dL (1.7-2.3) Ferritin 277 ng/mL H ng/mL (15-150) Lactate Dehydrogen ase 391 U/L H U/L (135-214) Troponin T Gen 5 n g/L Cancelled Troponin T Baselin e C-Reactive Protein 127.4 mg/L H mg/L (0.0-4.9) NT-Pro-B Natriuret Pep Procalcitonin 0.07 ng/mL ng/mL (0-0.5) Hepatitis A IgM Ab Hep Bs Antigen Hep B Core IgM Ab Hepatitis C Antibo dy HIV 1&2 Ab & HIV 1 Ag HIV 1&2 Antibody SARS-CoV-2 Ag (Rap id) 05/07/21 05/07/21 05/07/21 00:15 00:15 00:15 WBC RBC Hgb Hct MCV MCH MCHC RDW Plt Count MPV Neut % (Auto) Lymph % (Auto) [place] % (Auto) Eos % (Auto) Baso % (Auto) Neut # (Auto) Lymph # (Auto) [place] # (Auto) Eos # (Auto) Baso # (Auto) Nucleated RBC % (a uto) Nucleated RBCs # PT INR APTT Fibrinogen D-Dimer Sodium Potassium Chloride Carbon Dioxide Anion Gap BUN Creatinine GFR Calculation Glucose Calculated Osmolal ity Calcium Magnesium Ferritin Lactate Dehydrogen ase Troponin T Gen 5 n g/L Troponin T Baselin e C-Reactive Protein NT-Pro-B Natriuret Pep 284 pg/mL H pg/mL (0-125) Procalcitonin Hepatitis A IgM Ab Non-reactive (Nonreactive) Hep Bs Antigen Non-reactive (Nonreactive) Hep B Core IgM Ab Non-reactive (Nonreactive) Hepatitis C Antibo dy Reactive H (Nonreactive) HIV 1&2 Ab & HIV 1 Ag Non-reactive (Non-Reactiv) HIV 1&2 Antibody Non-reactive (Non-Reactiv) SARS-CoV-2 Ag (Rap id) 05/07/21 00:16 WBC RBC Hgb Hct MCV MCH MCHC RDW Plt Count MPV Neut % (Auto) Lymph % (Auto) [place] % (Auto) Eos % (Auto) Baso % (Auto) Neut # (Auto) Lymph # (Auto) [place] # (Auto) Eos # (Auto) Baso # (Auto) Nucleated RBC % (a uto) Nucleated RBCs # PT INR APTT Fibrinogen D-Dimer Sodium Potassium Chloride Carbon Dioxide Anion Gap BUN Creatinine GFR Calculation Glucose Calculated Osmolal ity Calcium Magnesium Ferritin Lactate Dehydrogen ase Troponin T Gen 5 n g/L Troponin T Baselin e C-Reactive Protein NT-Pro-B Natriuret Pep Procalcitonin Hepatitis A IgM Ab Hep Bs Antigen Hep B Core IgM Ab Hepatitis C Antibo dy HIV 1&2 Ab & HIV 1 Ag HIV 1&2 Antibody SARS-CoV-2 Ag (Rap id) Negative (Negative) Imaging Data^: Other Imaging: Radiologist's impression: [address] [id number] ReportSigned Patient: Dalila Samuels #: [id number]: 1960c ct#:[id number]/Sex: 61 / FADM Date: 05/06/21Loc: ERRoom/Bed:Attending Dr: Ordering Provider/Ordering MD: Alejandro Presley MD Date of Service: 05/06/21 Procedure(s): XR chest 1V portable [id number] Accession Number(s): [id number] Report Number: [id number] PROCEDURE INFORMATION: Exam: XR Chest Exam date and time: 05/06/2021 11:57 PM Age: 61 years old Clinical indication: Cough; Additional info: Dyspnea TECHNIQUE: Imaging protocol: XR of the chest. Views: 1 view. COMPARISON: CR XR chest 1V portable [id number] 11/16/2019 1:04 AM FINDINGS: Lungs: Mild left basilar atelectasis and/or infiltrate and/or effusion. Increased bilateral perihilar opacities and lung opacities most consistent with mild bilateral pneumonia. Pleural spaces: Unremarkable. No pleural effusion. No pneumothorax. Heart/Mediastinum: Unremarkable. No cardiomegaly. Bones/joints: Unremarkable. Other findings: Patient rotation to the right. XR/XR chest 1V portable [id number] IMPRESSION: 1. Mild left basilar atelectasis and/or infiltrate and/or effusion. 2. Increased bilateral perihilar opacities and lung opacities most consistent with mild bilateral pneumonia. Radiation Dose CTDIVOL = (mGy): DLP = (mGy-cm) Dictated By:Cristhian Andrews MDSigned By:Cristhian Andrews MDSigned Date/Time:05/07/21 0227DD/ [address] [id number] Scan ReportSigned Patient: Dalila Samuels #: [id number]: 2Acct#:[id number]/Sex: 61 / FADM Date: 05/06/21Loc: ERRoom/Bed:Attending Dr: Ordering Provider/Ordering MD: Alejandro Presley MD Date of Service: 05/07/21 Procedure(s): CT angio chest PE protcl [id number] Accession Number(s): [id number] Report Number: [id number] PROCEDURE INFORMATION: Exam: CTA Chest With Contrast Exam date and time: 05/07/2021 1:27 AM Age: 61 years old Clinical indication: Cough and dyspnea and shortness of breath; Prior surgery; Surgery type: Gb; Patient HX: Severe SOB, with cough and dyspnea. History of copd. Struggling to maintain 90 percent spo2 on non-rebreather at 15l. Patient very anxious with substantial labored breathing. Barely able to tolerate laying supine and could not follow breathing instructions well. Best exam obtained. ; Additional info: Rule out pe TECHNIQUE: Imaging protocol: Computed tomographic angiography of the chest with contrast. 3D rendering (Not supervised by radiologist): MIP and/or 3D reconstructed images were created by the technologist. Radiation optimization: All CT scans at this facility use at least one of these dose optimization techniques: automated exposure control; mA and/or kV adjustment per patient size (includes targeted exams where dose is matched to clinical indication); or iterative reconstruction. Contrast material: OMNI 350; Contrast volume: 67 ml; Contrast route: INTRAVENOUS (IV); COMPARISON: CR (CHEST, ) 05/07/2021 12:41 AM RADIATION DOSE METRICS: Total DLP (mGy-cm): 875.21 FINDINGS: Pulmonary arteries: Evaluation of pulmonary arteries is somewhat limited secondary to respiratory motion. No pulmonary embolism. Aorta: No aortic dissection. Other arteries: Atherosclerotic coronary artery calcifications are present. There is mild atherosclerotic disease. Lungs: Hazy bilateral pulmonary opacities, with consolidation in the left lower lobe. Findings may represent community-acquired pneumonia versus COVID-19.. Pleural spaces: Unremarkable. No pneumothorax. No pleural effusion. Heart: Unremarkable. No cardiomegaly. No pericardial effusion. Lymph nodes: Unremarkable. No enlarged lymph nodes. Bones/joints: Unremarkable. No acute fracture. Soft tissues: Unremarkable. CT/CT angio chest PE protcl [id number] IMPRESSION: 1. Hazy bilateral pulmonary opacities, with consolidation in the left lower lobe. Findings may represent community-acquired pneumonia versus COVID-19.. 2. Evaluation of pulmonary arteries is somewhat limited secondary to respiratory motion. 3. No pulmonary embolism. 4. Atherosclerotic disease of the coronary arteries. 5. No aortic dissection. Radiation Dose CTDIVOL = (mGy): DLP = 875.21 (mGy-cm) Dictated By:Monique Pimentel By:Monique Pimentel Date/Time:05/07/21 0421DD/ 0127 Discharge Plan Discharge Patient Disposition: Admitted As Inpatient Admit Provider: Giuliana Ocasio Clinical Impression: Hypoxemia, Dyspnea, COPD exacerbation Pneumonia Qualifiers: Pneumonia type: due to unspecified organism Laterality: bilateral Lung location: unspecified part of lung Qualified Code(s): J18.9 - Pneumonia, unspecified organism Condition: Stable Coding Level of Care Code ED [employer] [facility]
--- NOTE | 2021-05-07 02:29 | PC.NURSE ---
O2 SATS labile; currently 85% on 5L via NC. Placed on NRB.
--- NOTE | 2021-05-07 02:41 | PC.NURSE ---
RT in room; placed pt on high flow NC
[2021-05-07] MEDS: dexamethasone 10 mg/mL INJ 6 MG IVP (02:45)
[2021-05-07 03:04] LABS: ABG PCO2 38.4 mmHg (35-45); ABG PH Result 7.41 (7.35-7.45); Arterial Blood Gas Hematocrit 37.1 % (37-47); Base Excess ABG -0.5 mmol/L (-2.0-2.0); Blood Gas Allen Test Pos; Blood Gas Sample Type Arterial; PO2 ABG 64.5 mmHg (80.0-100.0)
[2021-05-07 03:05] LABS: Blood Gas Sample Site Radial, right; Oxygen Device NRB
[2021-05-07] MEDS: albuterol 8 gm MDI 4 PUFF INHALATION (03:15)
[2021-05-07] MEDS: acetaminophen 500 mg Tablet 1000 MG PO (03:15)
--- NOTE | 2021-05-07 03:28 | PC.NURSE ---
Pt. seems to be having anxiety. Pt states that she cannot breath and that she feels like she is being smothered. Pt. has non rebreather on at 13L of oxygen. Pt. states that she feels like she is not getting oxygen but is moving all around the bed and taking the mask off of her face and holding it close to her nose.
[2021-05-07] MEDS: methylPREDNISolone (DEPO) 80 MG/ML INJ 1 mL IM (03:49)
[2021-05-07] MEDS: iohexol 350 mg/mL 100 mL Btl IV (04:03)
--- NOTE | 2021-05-07 04:16 | PM.HP ---
Providers/Chief Complaint Admitting Physician: Giuliana Ocasio MD Chief Complaint: SOB History of Present Illness Dalila Samuels is a 61 year old female with past medical history as outlined below, chiefly COPD, who presents to the ER with 3 days of fever, states up to 101 Fahrenheit at home, associated with chills, recent cough with expectoration and shortness of breath. States that her home saturation was at 84 to 86% on room air and this is what prompted her ER visit today. At a baseline she states her oxygen requirement stays between 94 to 95%. He has COPD, multiple inhalers at home which she has been trying to use without significant relief. On exam today there is Diffuse wheezing on auscultation bilaterally. He had chest with bilateral groundglass infiltrates concerning for COVID-19 and also left noted left lower lobe consolidation. He is vaccinated with moderna 2 dose mRNA vaccine series 7 months ago. Upon arrival in the ER, she was noted to be hypoxic, placed on 6 L/min supplemental O2 via nasal cannula, which escalated quickly to 15 L of nonrebreather mask. Review of Systems General: Reports: 10 or more systems reviewed and unremarkable except in HPI and below Const: Denies: fever(s), chills or body aches Eyes: Denies: change in vision, blurry vision or photophobia ENMT: Reports: hoarseness; Denies: throat pain, enlarged tonsils, odynophagia or nasal congestion Card: Denies: chest pain, palpitations, irregular heart rhythm, edema, swelling of feet/ankles, lightheadedness, pre-syncope, dyspnea on exertion or orthopnea Resp: Denies: dyspnea, productive cough, non-productive cough, wheezing, stridor, pain on inspiration, change in phlegm color, hemoptysis or chest congestion GI: Denies: abdominal pain, nausea, vomiting, hematemesis, coffee ground emesis, dysphagia, heartburn, diarrhea, constipation, GI cramping, change in stool character, hematochezia or melena : Denies: flank pain, difficulty voiding, dysuria, urinary frequency, urinary urgency, urinary hesitancy or hematuria Musc: Denies: neck pain, back pain, extremity pain, joint swelling, joint warmth or deformity Neuro: Denies: headache(s), numbness in extremities, weakness in extremities, sensory changes, difficulty walking, frequent falls, dizziness, vertigo, behavioral changes, Slurred speech present or seizure-like activity Psych: Denies: anxiety, depression, suicidal ideation or homicidal ideation Endo: Denies: polyuria, polydipsia, tired all the time, cold intolerance or hot flashes Beau/Lymph: Denies: easy bruising or easy bleeding Medications/Allergies Home Medications Medication Instructions Recorded Confirmed Last Taken Type Vitamin D3 1 tab PO QAM #30 cap 11/17/19 04/24/21 Unknown Rx vitamin A 8,000 units PO QAM #30 cap 11/17/19 04/24/21 Unknown Rx miscellaneous medical supply See Rx Instructions MISCELLANEOUS 11/28/19 04/24/21 Unknown Rx .COMPLEX #1 each AFO #1 ea 06/24/20 04/24/21 Unknown Rx varenicline 1 mg tablet 1 mg PO BID #56 tab 11/18/20 04/24/21 Unknown Rx dextromethorphan polistirex 30 10 ml PO Q12H PRN #89 ml 12/11/20 04/24/21 Unknown Rx mg/5 mL oral susp ext.release 12hr albuterol sulfate 2.5 mg INHALATION Q4H PRN #180 ml 01/13/21 04/24/21 Unknown Rx albuterol sulfate 90 mcg/actuation 2 puff INHALATION Q6H PRN 30 Days 01/13/21 04/24/21 Unknown Rx aerosol inhaler #18 gm budesonide 0.5 mg/2 mL suspension 0.5 mg INHALATION BID #60 ml 01/13/21 04/24/21 Unknown Rx for nebulization epinephrine 0.3 mg/0.3 mL 0.3 mg IM Q15M PRN #2 each 01/13/21 04/24/21 Unknown Rx injection, auto-injector miscellaneous medical supply See Rx Instructions MISCELLANEOUS 01/13/21 04/24/21 Unknown Rx .COMPLEX #1 ea omega 9-qdx-xlb-fish oil 1,000 mg 1 cap PO BID 90 Days #180 cap 01/13/21 04/24/21 Unknown Rx (120 mg-180 mg) capsule vits no.129-ferrous fum 1 tab PO DAILY 90 Days #90 tab 01/13/21 04/24/21 Unknown Rx 27 mg iron-folic acid 800 mcg tablet promethazine 12.5 mg tablet 12.5 mg PO DAILY PRN 30 Days #30 01/13/21 04/24/21 Unknown Rx tab bupropion HCl 150 mg tablet,12 hr See Rx Instructions .ROUTE 03/24/21 04/24/21 Unknown Rx sustained-release .COMPLEX #60 tab fluoxetine 40 mg capsule See Rx Instructions .ROUTE 03/24/21 04/24/21 Unknown Rx .COMPLEX #60 cap lamotrigine 100 mg tablet See Rx Instructions .ROUTE 03/24/21 04/24/21 Unknown Rx .COMPLEX #45 tab quetiapine 300 mg tablet See Rx Instructions .ROUTE 03/24/21 04/24/21 Unknown Rx .COMPLEX #60 tab famotidine 20 mg tablet 20 mg PO BID 30 Days #60 tab 03/27/21 04/24/21 Unknown Rx furosemide 20 mg tablet 20 mg PO QAM PRN #30 tab 03/27/21 04/24/21 Unknown Rx ibuprofen 800 mg tablet 800 mg PO TID PRN 30 Days #90 tab 03/27/21 04/24/21 Unknown Rx MDD 2 tabs pregabalin 200 mg capsule 200 mg PO TID 30 Days #90 cap 03/27/21 04/24/21 Unknown Rx umeclidinium 62.5 mcg-vilanterol 1 inh INHALATION DAILY 30 Days #60 04/24/21 04/24/21 Unknown Rx 25 mcg/actuation powdr for ea inhalation Allergies Allergy/AdvReac Type Severity Reaction Status Date / Time Penicillins Allergy ALGY-Rash Verified 04/24/21 09:22 PFSH Acute PFSH: Medical History Borderline personality disorder Chronic idiopathic pain syndrome Chronic pain syndrome COPD (chronic obstructive pulmonary disease) DDD (degenerative disc disease), cervical DJD (degenerative joint disease), lumbar GERD (gastroesophageal reflux disease) Hepatitis C, chronic History of intravenous drug abuse Nicotine dependence, cigarettes, with other nicotine-induced disorders Opioid dependence, in remission Other stimulant dependence, in remission Psychiatric care PVD (peripheral vascular disease) with claudication Schizoaffective disorder, bipolar type Surgical History H/O tubal ligation Hx of BKA S/P cholecystectomy S/P tonsillectomy Family History Other CAD (coronary artery disease) Diabetes Lung disease Stroke Social History Smoking and tobacco status: current some day smoker cigarettes Years cigarettes smoked: 40 [ Other cigarette details: Hx of 1 PPD x 40 Years ] Quit status (tobacco): considering quitting Second hand smoke exposure: Yes Smoking risk assessment/counseling performed?: Yes Alcohol intake: former Counseling given: No Counseling given: No Lives independently: Yes Household members: none Marital status: Current occupational status: disabled History of recent travel: No Current gender identity: Female Female Reproductive History: Date of last menstrual period: 10/24/20 Spontaneous abortions: No Vitals/I&O/Wt Last Vital Signs Temp 99.0 F 05/06/21 23:48 Pulse 106 H 05/07/21 03:23 Resp 22 H 05/07/21 03:23 BP 175/115 05/07/21 02:29 Pulse Ox 94 05/07/21 03:23 Weight last 48 hrs Weight 113.398 kg Physical Exam Narrative: EXAM NARRATIVE: General: No acute distress, AO x3 HEENT: PERRLA, pupils bilaterally equal and reactive, pallors not present Chest: Patient bilaterally all areas with diffuse wheezing. CVS: S1-S2 regular, no murmurs, no tachycardia, no gallops, no rubs Abdomen: Soft, nontender, no organomegaly, bowel sounds present Neuro: No focal deficits, no facial deformity, AO x3, power 5/5 in all limbs Data : 05/07/21 00:15 05/07/21 00:15 A&P Assessment and plan (1) Pneumonia: Status: Acute Qualifiers: Pneumonia type: due to unspecified organism Laterality: bilateral Lung location: unspecified part of lung Qualified Code(s): J18.9 - Pneumonia, unspecified organism (2) Respiratory failure with hypoxia: Status: Acute Qualifiers: Chronicity: acute Qualified Code(s): J96.01 - Acute respiratory failure with hypoxia (3) COPD exacerbation: Status: Acute Additional A&P Information Admit to ICU in view of quickly escalating oxygen requirements. CTA of the chest negative for PE, however showed bilateral diffuse patchy infiltrates concerning for COVID-19 pneumonia. Additionally noted left lower lobe consolidation. Rapid Covid antigen is negative, PCR is pending. Influenza AMB antigen additionally pending. 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
[2021-05-07] MEDS: ipratropium-albuterol 3 mL Neb INHALATION ×4 (04:25→20:41)
[2021-05-07] MEDS: budesonide 0.5 mg/2 mL Neb INHALATION ×2 (04:25→08:53)
[2021-05-07] MEDS: benzonatate 100 mg Capsule PO ×2 (04:47→22:56)
[2021-05-07] MEDS: ALPRAZolam 0.5 mg Tablet PO ×2 (04:48→15:47)
[2021-05-07 05:20] LABS: Amphetamines Screen Urine Positive (Negative); Barbiturates Screen Urine Negative (Negative); Benzodiazepines Screen Urine Negative (Negative); Cocaine Screen Urine Negative (Negative); Opiate Screen Urine Negative (Negative); PCP Screen Urine Negative (Negative); THC Screen Urine Negative (Negative)
[2021-05-07 06:09] LABS: Influenza A by IFA Negative (Negative); Influenza B by IFA Negative (Negative)
[2021-05-07] MEDS: FUROsemide 20 mg Tablet PO (06:34)
[2021-05-07] MEDS: enoxaparin 40 mg/0.4 mL Syringe SUBCUT (06:34)
[2021-05-07] MEDS: acetaminophen 325 mg Tablet 650 MG PO ×2 (07:17→17:20)
[2021-05-07] MEDS: fluoxetine 20 mg Capsule 40 MG PO (08:04)
[2021-05-07] MEDS: lamoTRIgine 100 mg Tablet 150 MG PO (08:04)
[2021-05-07] MEDS: quetiapine 300 mg Tablet PO (08:04)
[2021-05-07] MEDS: pantoprazole DR 40 mg Tablet PO (08:05)
--- NOTE | 2021-05-07 08:51 | PC.PHAR ---
pt states she takes care of her own medications-pt states she hasnt taken chantix in a month chantix had a recall-pt states she has been taking 20mg daily of lasix-ext med history shows lasix 40mg po qam prn filled on 04/26/21-notes are made in the pharmacy comments
[2021-05-07 09:13] LABS: Hepatitis A Antibody IgM Non-Reactive (Nonreactive); Hepatitis B Core IgM Non-Reactive (Nonreactive); Hepatitis B Surface Antigen Non-Reactive (Nonreactive); Hepatitis C Virus Antibody Reactive (Nonreactive)
[2021-05-07 09:19] LABS: HIV 1 & 2 Antibody Non-Reactive (Non-Reactiv); HIV 1 & 2 Antigen Non-Reactive (Non-Reactiv)
--- NOTE | 2021-05-07 09:26 | PC.CHAP ---
Pastoral Care Encounter/Spiritual Assessment Type of Contact [] Declined film examiner visit [] Patient/Family/Request visit [] Outpatient visit [] Follow-up visit [] Physician referral [] Code/Alert [x] Routine visit [] Staff referral [] Actively dying [x] Patient sleeping [] Family support [] [] Out of room [] Palliative care [] [] Receiving care in room [] Pre-surgical visit [] Trauma [] Long length of stay [x] ICU visit [] Other: Relational/Emotional Strength [] Patient feels connected with others/family/visitors/staff [] Distress [] Loneliness/isolation [] Abandonment Spirituality of Patient [] Person of Love [] Attends Pentecostal of their Love [] Believes in Prayer [] Reads Bible or Yarsani materials [] There are Spiritual issues to be addressed 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 Estate Leasing Manager Interventions [x] Prayer [] Active listening [] Non-anxious presence [] Spiritual/emotional support [] Crisis/trauma care [] Spiritual counseling [] Bereavement support [] Provided bereavement packet [] Provided Bible/devotional materials [] Provided toy/stuffed animal, coloring book to patient or family member [] Provided Communion [] Anointing/[place] [] Salvation [x] Completed spiritual assessment [] Other: Impact on Illness or Injury [] Angry [] Fearful [] Anxious [] Often cries [] Exhaustion [] Unable to work [] Unable to attend jain [] Unable to walk/stand [] Unable to read [] Unable to drive [] Unable to eat/drink [] Unable to sleep [] Unable to be with family [] Patient intubated [] Other: Summary Time spent with patient
[2021-05-07] MEDS: buPROPion SR (12 HR) 150 mg Tablet PO ×2 (10:42→20:45)
--- NOTE | 2021-05-07 17:41 | P.PN_ITS ---
Subjective Subjective: Interval history: Patient was seen this morning, she tells me that she is quite anxious about being here in the ICU, she tells me that normally she is quite anxious, she tells me that 2 months ago her daughter from fentanyl overdose, currently she is living at a motel, as she does not have any housing, is smoking, no history of heart disease, no history of strokes, she denies any methamphetamine use, denies any IV drug use, denies a history of endocarditis Vitals/I&O/Wt Last Vital Signs Temp 99.6 F 05/07/21 07:25 Pulse 78 05/07/21 15:19 Resp 19 H 05/07/21 15:19 BP 143/83 05/07/21 12:00 Pulse Ox 93 05/07/21 15:19 05/07/21 05/07/21 05/07/21 06:59 14:59 22:59 Intake Total 50 / 50 120 / 120 Output Total 400 / 400 Balance 50 / 50 -280 / -280 Weight last 48 hrs Weight 113.398 kg Physical Exam Const: COMMON NORMALS: no acute distress GENERAL APPEARANCE: anxious NUTRITIONAL APPEARANCE: overweight ORIENTATION/CONSCIOUSNESS: Yes oriented to person and Yes oriented to place Resp: COMMON NORMALS: normal respiratory effort, No retractions, No use of accessory muscles and clear to auscultation bilaterally AUSCULTATION: clear to auscultation bilaterally Cardio: COMMON NORMALS: regular rate, regular rhythm, S1 normal heart sound present and S2 normal heart sound present RATE: regular rate RHYTHM: regular rhythm HEART SOUNDS: S1 normal heart sound present and S2 normal heart sound present GI: COMMON NORMALS: Normal to inspection, nondistended, normoactive bowel sounds present, Soft to palpation and non-tender PALPATION: Yes Soft to palpation Extremity: COMMON NORMALS: no pedal edema NARRATIVE EXTREMITY EXAM: Right lower extremity amputation, secondary to infection Neuro: SENSORIUM/ORIENTATION: Yes oriented to person and Yes oriented to place Data : 05/07/21 00:15 05/07/21 00:15 Micro: Microbiology 05/07/21 05:06 Blood Culture - Preliminary Blood SPECIMEN COLLECTED 05/07/21 04:40 Blood Culture - Preliminary Blood SPECIMEN COLLECTED A&P Assessment and plan (1) Pneumonia: Status: Acute Qualifiers: Laterality: bilateral Lung location: unspecified part of lung Pneumonia type: due to unspecified organism Qualified Code(s): J18.9 - Pneumonia, unspecified organism (2) Respiratory failure with hypoxia: Status: Acute Qualifiers: Chronicity: acute Qualified Code(s): J96.01 - Acute respiratory failure with hypoxia (3) COPD exacerbation: Status: Acute Additional A&P Information Highly suspicious for acute hypoxic respiratory failure secondary to COVID-19 pneumonia admit to ICU in view of quickly escalating oxygen requirements. CTA of the chest negative for PE, however showed bilateral diffuse patchy infiltrates concerning for COVID-19 pneumonia. Additionally noted left lower lobe consolidation. Rapid Covid antigen is negative, PCR is pending. Influenza AMB antigen negative Methylprednisolone 60 mg IV every 8 hour duoneb q6h, budesonide q12h scheduled nebulization Supplemental O2 to keep saturation 90 to 92% empiric Rocephin and azithromycin Follow blood cultures, sputum cultures, urine cultures Flutter valve/spirometer at bedside CRP 127 Ferritin 277 Pro-Ross 0.07 Hep C positive Prophylaxis: Lovenox Full code Attestations Medical Necessity Statement*: Patient requires hospitalization, ICU, for increased ox requirements, acute hypoxic respiratory failure highly suspicious for COVID-19 pneumonia Coding Level of Care Code Acute Management Accounts Manager for [facility] Diagnoses Pneumonia J18.9 Laterality: bilateral Lung location: unspecified part of lung Pneumonia type: due to unspecified organism Respiratory failure with hypoxia J96.01 Chronicity: acute COPD exacerbation J44.1
[2021-05-07] MEDS: morphine 4 mg/mL SDV 1 mL 2 MG IVP (17:56)
--- NOTE | 2021-05-07 18:50 | PC.NURSE ---
Report Handoff report received from MARTHA Winters. Patient A&O, in bed shaking head intermittently and adjusting oxygen tubing several times anxiously. Rambling speech pattern observed. Nurse helped adjust oxygen tubing position to patient satisfaction.
--- NOTE | 2021-05-07 19:25 | PC.NURSE ---
Precedex Patient continuing to move head and move oxygen tubing with hands. Education provided on the importance of leaving oxygen on face. Patient still moving anxiously. Precedex started per MAR, education provided on medication to patient with patient verbalizing understanding. Patient stated no further needs at this time.
[2021-05-07] MEDS: dexmedeTOMIDine 0.9 % NaCL 400 MCG/100 ML PREMIX IV (19:27)
--- NOTE | 2021-05-07 20:29 | PC.NURSE ---
Family Update Attempt Multiple call attempts made to cell phone number listed for patient's daughter, Laurie Samuels, for patient update. Each time it was stated that the number (was) not available. Will try again later.
--- NOTE | 2021-05-07 21:35 | PC.NURSE ---
Addendum entered by Maryann De La Rosa RN 05/07/21 21:46: Administration notified of contact number change. Original Note: Family Updated Nurse discussed with patient different possible phone numbers of family members for updates. Patient said to try switching the first 3 numbers with the second set of 3 numbers to reach daughterLaurie. New number called and update of patient given to daughter. Daughter stated she had been attempting to reach patient for a while but could not reach her. Patient stated her phone number had changed recently and that is why communication was not enabled. After update was given, patient and daughter wished to facetime: ipad was set up for [employer] and daughter was called for videocall. Education provided to daughter regarding diagnosis and oxygen requirements. Daughter states she will attempt to call for updates in near future.
--- NOTE | 2021-05-07 22:40 | PC.NURSE ---
Case Management Case management consulted on patient case. cabinet worker at patient bedside. Companies for homecare, oxygen supplies, and discharge planning discussed. Patient actively involved in discussion.
[2021-05-08] VITALS (62 sets, daily range): BP systolic 92–134; BP diastolic 62–99; PULSE 61–93; RESP 19–43; TEMP 36.8–37.2; O2SAT 88–100
[2021-05-08] MEDS: azithromycin 500 MG in sodium chloride 0.9% 250 ML 250 MG IV (00:01)
--- NOTE | 2021-05-08 00:09 | PC.NURSE ---
Anxiety Upon entering room, patient exhibiting strong cough. Patient states it feels like I can't breathe while shaking her head from side to side and removing her oxygen completely. Oxygen saturation in low to mid 90s, patient coached on breathing technique and reeducated on the importance of keeping her oxygen on. Precedex titrated per SEP. At 0020, patient still anxiously moving head and requests medication for anxiety in addition to her cough. Medications administered per SEP. Patient's oxygen saturation remaining in the low-mid 90s.
[2021-05-08] MEDS: guaiFENesin-dextromethorphan UDC 10 mL 5 ML PO (00:25)
[2021-05-08] MEDS: ALPRAZolam 0.5 mg Tablet PO ×3 (00:25→21:05)
[2021-05-08] MEDS: cefTRIAXone 1,000 MG in sodium chloride 0.9% (plus) 50 ML 100 MG IV (01:11)
--- NOTE | 2021-05-08 04:22 | PC.NURSE ---
Increasing Anxiety Patient became increasingly anxious, stating she could not breathe, and that she needed more medication, while also attempting to remove her oxygen completely. Patient's oxygen saturation was low-mid 90s. Education provided to patient regarding the importance of leaving her oxygen on, her medication schedule, in addition to further deep breathing techniques. Precedex titrated per SEP. Patient's oxygen saturation remains in the low-mid 90s.
[2021-05-08] MEDS: dexmedeTOMIDine 0.9 % NaCL 400 MCG/100 ML PREMIX 19.85 MCG IV (04:30)
[2021-05-08] MEDS: ipratropium-albuterol 3 mL Neb INHALATION ×4 (04:35→20:57)
[2021-05-08 05:10] LABS: ABG PCO2 41.1 mmHg (35-45); Arterial Blood Gas Hematocrit 31.8 % (37-47); Base Excess ABG 0.5 mmol/L (-2.0-2.0); Blood Gas Allen Test Pos; Blood Gas Sample Type Arterial; HCO3 ABG 25.4 mmol/L (22-26)
[2021-05-08 05:11] LABS: Blood Gas Sample Site Radial, right; Oxygen Device HAG
[2021-05-08 05:33] LABS: Basophils % 0.1 %; Eosinophils # 0.1 10^3/uL (0.0-0.8); Eosinophils % 0.5 %; Hematocrit 34.6 % (37.0-47.0); Lymphocytes # 1.1 10^3/uL (0.8-4.8); Lymphocytes % 7.3 %; Mean Corpuscular HGB Conc 31.8 g/dL (30.0-36.0); Mean Corpuscular Hemoglobin 29.9 pg (28.0-34.0); Mean Platelet Volume 9.2 fL (7.4-10.4); Monocytes % 6.2 %; Neutrophils # 12.98 10^3/uL (1.8-7.7); Nucleated Red Blood Cells % 0 %; Platelet Count 312 10^3/cmm (130-400); Red Blood Count 3.68 10^6/uL (4.1-5.3); White Blood Count 15.3 10^3/uL (4.0-10.0)
[2021-05-08 05:45] LABS: D Dimer 1.16 ug/mIFEU (0-0.59)
[2021-05-08 05:53] LABS: Alanine Aminotransferase 10 U/L (0-33); Albumin Level 3.7 g/dL (3.5-5.2); Alkaline Phosphatase 138 IU/L (35-105); Anion Gap 14.4 (5-19); Aspartate Amino Transferase 21 U/L (0-32); Blood Urea Nitrogen 9 mg/dL (6-20); Calcium 9.2 mg/dL (8.5-10.5); Carbon Dioxide 25 mmol/L (22-29); Chloride 102 mmol/L (98-107); Globulin 3.5 g/dL (1.3-4.6); Glomerular Filtration Rate 126.3 mL/min (90-130); Glucose 144 mg/dL (65-115); Osmolality Calculated 285 mOsm/kg (285-295); Phosphorus 3.5 mg/dL (2.5-4.5); Potassium 4.4 mmol/L (3.5-5.1); Sodium 137 mmol/L (136-145); Total Bilirubin 0.3 mg/dL (0.15-1.2); Total Protein 7.2 g/dL (6.6-8.7)
[2021-05-08 06:03] LABS: NT Pro B Type Natriuretic Pept 602 pg/mL (0-125); Procalcitonin 0.11 ng/mL (0-0.5)
[2021-05-08] MEDS: FUROsemide 20 mg Tablet PO (06:07)
[2021-05-08] MEDS: enoxaparin 40 mg/0.4 mL Syringe SUBCUT (06:09)
[2021-05-08 06:16] LABS: C Reactive Protein 165.9 mg/L (0.0-4.9); Creatine Phosphokinase 63 U/L (26-192)
--- NOTE | 2021-05-08 06:26 | PC.NURSE ---
Shift Note Frequent safety and comfort rounds continue. Orders and/or nursing care completed as indicated. Patient monitored for response to intervention and treatment(s). Education provided includes information regarding SCDs, her fall risk level, how important it is to leave her oxygen on, and deep breathing exercises. Patient verbalized understanding but may need reinforcement teaching regarding the use of oxygen. Patient will continue to be monitored.
[2021-05-08] MEDS: dexmedeTOMIDine 0.9 % NaCL 400 MCG/100 ML PREMIX 34.02 MCG IV ×6 (06:56→23:41)
--- NOTE | 2021-05-08 07:00 | XR_ITS ---
WS: [id number] XR chest 1V portable [id number] REASON FOR EXAM: sob FINDINGS: Compared to previous examination of 05/07/2021 there is been progression of the diffuse bilateral reti cular nodular interstitial infiltrative and groundglass density change throughout both lungs. [place] dation/atelectasis persists in the left lower lung. No new finding is identified. XR/XR chest 1V portable [id number] IMPRESSION: Progression of bilateral pulmonary infiltrates. Lung parenchymal changes are very florid and rapid for a pneumonitis. CT shows asymmetric groundglass density (nonspecific) superimposed on central lobar emph ysema.
[2021-05-08] MEDS: morphine 4 mg/mL SDV 1 mL 2 MG IVP ×2 (07:31→20:04)
--- NOTE | 2021-05-08 07:38 | PC.NURSE ---
Patient had what appeared to be a panic attack at 0720. She nasal cannula and non rebreather. Was yelling out for help stating she can't breath and she feels like the oxygen devices are choking her. Nurse placed oxygen devices back on the patient and coached through slower deep breathing. Patient's SPO2 remained 89-90% throughout event. Patient continues to be anxious. Ativan for anxiety and morphine for air hunger administered by patient's primary nurse.
[2021-05-08] MEDS: budesonide 0.5 mg/2 mL Neb INHALATION ×2 (08:14→20:57)
--- NOTE | 2021-05-08 08:49 | PC.NURSE ---
Patient was yelling out in room stating, I cant breath pulling at non rebreather mask and flailing in bed. Patient was also saying, I need that stuff in my IV and also complaining of chest pain and head pain. RT and informed. O2 sat was in upper 80's at this time. PRN orders were given. entered a one time order but but instructed this nurse not to give at this time. Patient is now resting in bed. Respirations are non labored. O2 sat 95%.
--- NOTE | 2021-05-08 09:01 | PC.CHAP ---
Pastoral Care Encounter/Spiritual Assessment Type of Contact [] Declined drilling inspector visit [] Patient/Family/Request visit [] Outpatient visit [] Follow-up visit [] Physician referral [] Code/Alert [x] Routine visit [] Staff referral [] Actively dying [] Patient sleeping [] Family support [] [] Out of room [] Palliative care [] [x] Receiving care in room [] Pre-surgical visit [] Trauma [] Long length of stay [x] ICU visit [] Other: Relational/Emotional Strength [] Patient feels connected with others/family/visitors/staff [] Distress [] Loneliness/isolation [] Abandonment Spirituality of Patient [] Person of Love [] Attends Congregational of their Love [] Believes in Prayer [] Reads Bible or Baptism materials [] There are Spiritual issues to be addressed Geophysics Teacher Interventions [x] Prayer [] Active listening [] Non-anxious presence [] Spiritual/emotional support [] Crisis/trauma care [] Spiritual counseling [] Bereavement support [] Provided bereavement packet [] Provided Bible/devotional materials [] Provided toy/stuffed animal, coloring book to patient or family member [] Provided Communion [] Anointing/[place] [] Salvation [x] Completed spiritual assessment [] Other: Impact on Illness or Injury [] Angry [] Fearful [] Anxious [] Often cries [] Exhaustion [] Unable to work [] Unable to attend orthodox [] Unable to walk/stand [] Unable to read [] Unable to drive [] Unable to eat/drink [] Unable to sleep [] Unable to be with family [] Patient intubated [] Other: Summary Time spent with patient
[2021-05-08] MEDS: fluoxetine 20 mg Capsule 40 MG PO (09:48)
[2021-05-08] MEDS: buPROPion SR (12 HR) 150 mg Tablet PO ×2 (09:48→20:28)
[2021-05-08] MEDS: lamoTRIgine 100 mg Tablet 150 MG PO (09:48)
[2021-05-08] MEDS: pantoprazole DR 40 mg Tablet PO (09:49)
[2021-05-08] MEDS: benzonatate 100 mg Capsule PO (09:49)
[2021-05-08] MEDS: quetiapine 300 mg Tablet PO (09:49)
--- NOTE | 2021-05-08 13:18 | P.PN_ITS ---
Subjective Subjective: Interval history: This morning patient was seen, she is significantly anxious, she tells me that she cannot breathe, but her oxygen saturations stayed in the high 90s, she tells me that she feels anxious, she feels that she cannot breathe, and she needs more of the anxiety medications that she is receiving, no nausea, vomiting, chest pain, no hemoptysis, currently is on maximum dose of Precedex, receiving Xanax, morphine. I advised patient that she has a high risk of hypercapnic respiratory failure, intubation in the near future, we will do our best to control her anxiety, however there is a risk of respiratory depression with sedating medications that can also result in intubation and morbidity and mortality. She voiced understanding, all questions answered, was able to rest after, Vitals/I&O/Wt Last Vital Signs Temp 98.4 F 05/08/21 04:30 Pulse 69 05/08/21 11:51 Resp 30 H 05/08/21 11:51 BP 126/86 05/08/21 10:30 Pulse Ox 97 05/08/21 11:51 05/07/21 05/08/21 05/08/21 22:59 06:59 14:59 Intake Total 734.603 / 854.603 670.227 / 1524.830 97.524 / 97.524 Balance 734.603 / 454.603 670.227 / 1124.830 97.524 / 97.524 Weight last 48 hrs Weight 113.398 kg Physical Exam Const: COMMON NORMALS: no acute distress GENERAL APPEARANCE: anxious ORIENTATION/CONSCIOUSNESS: Yes awake, Yes oriented to person, Yes oriented to place and Yes oriented to time Resp: COMMON NORMALS: normal respiratory effort and clear to auscultation bilaterally EFFORT & INSPECTION: Yes tachypneic AUSCULTATION: clear to auscultation bilaterally Cardio: COMMON NORMALS: regular rate, regular rhythm, S1 normal heart sound present and S2 normal heart sound present RATE: regular rate RHYTHM: regular rhythm HEART SOUNDS: S1 normal heart sound present and S2 normal heart sound present GI: COMMON NORMALS: Normal to inspection, nondistended, normoactive bowel sounds present, Soft to palpation and non-tender PALPATION: Yes Soft to palpation Extremity: COMMON NORMALS: no pedal edema NARRATIVE EXTREMITY EXAM: Right lower extremity amputation, secondary to infection Neuro: SENSORIUM/ORIENTATION: Yes oriented to person, Yes oriented to place and Yes oriented to time Data : 05/08/21 05:14 05/08/21 05:14 Micro: Microbiology 05/07/21 05:06 Blood Culture - Preliminary Blood NEGATIVE TO DATE 05/07/21 04:40 Blood Culture - Preliminary Blood NEGATIVE TO DATE A&P Assessment and plan (1) Pneumonia: Status: Acute Qualifiers: Laterality: bilateral Lung location: unspecified part of lung Pneumonia type: due to unspecified organism Qualified Code(s): J18.9 - Pneumonia, unspecified organism (2) Respiratory failure with hypoxia: Status: Acute Qualifiers: Chronicity: acute Qualified Code(s): J96.01 - Acute respiratory failure with hypoxia (3) COPD exacerbation: Status: Acute Additional A&P Information Highly suspicious for acute hypoxic respiratory failure secondary to COVID-19 pneumonia Currently being being managed in ICU CTA of the chest negative for PE, however showed bilateral diffuse patchy infiltrates concerning for COVID-19 pneumonia. Additionally noted left lower lobe consolidation. Rapid Covid antigen is negative, PCR is pending. Influenza AMB antigen negative Change to Decadron 6 mg IV push daily Remdesivir is on hold until her Covid status comes back duoneb q6h, budesonide q12h scheduled nebulization Currently on heated high flow empiric Rocephin and azithromycin Follow blood cultures, sputum cultures, urine cultures Flutter valve/spirometer at bedside Alprazolam for anxiety Precedex for anxiety Monitor respiratory status closely WBC 15.3 CRP 165 Ferritin 277 Pro-Ross 0.07 Hep C positive Prophylaxis: Lovenox Full code Attestations Medical Necessity Statement*: Patient requires hospitalization for acute respiratory failure with hypoxia, highly suspicious for COVID-19 pneumonia Coding Level of Care Code Acute Drawing In Hand for [facility] Fwd Diagnoses Pneumonia J18.9 Laterality: bilateral Lung location: unspecified part of lung Pneumonia type: due to unspecified organism Respiratory failure with hypoxia J96.01 Chronicity: acute COPD exacerbation J44.1
--- NOTE | 2021-05-08 14:01 | PC.RESP ---
RT Shift Note Frequent safety and respiratory rounds continue. Orders completed as indicated. Patient monitored pre and post treatments throughout shift. Patient [Did] tolerate treatments appropriately. Condition [DidNotChange]. Patient and/or front office representative educated on respiratory treatment and medications. Patient and/or front office representative [unable to comprehend]. Will continue to monitor patient progress.
[2021-05-08 17:19] LABS: Coronavirus Test Green County Not Detected
[2021-05-08] MEDS: levofloxacin-dextrose 5 % 750 MG/150 ML PREMIX 100 MG IV (18:41)
[2021-05-08 19:28] LABS: Influenza A by IFA Negative (Negative); Influenza B by IFA Negative (Negative)
[2021-05-08] MEDS: vancomycin 1,250 MG/250 ML PIGGYBACK 250 MG IV (20:28)
[2021-05-08 21:23] LABS: HIV 1 & 2 Antibody Non-Reactive (Non-Reactiv); HIV 1 & 2 Antigen Non-Reactive (Non-Reactiv)
[2021-05-08 23:08] LABS: Rapid Plasma Reagin Syphilis Nonreactive (Nonreactive)
[2021-05-08 23:46] LABS: Lactate Dehydrogenase 516 U/L (135-214)
[2021-05-09] VITALS (66 sets, daily range): BP systolic 88–163; BP diastolic 58–91; PULSE 60–108; RESP 16–48; TEMP 36.3–37.2; O2SAT 80–100
[2021-05-09] MEDS: haloperidol inj 5 mg/mL INJ 1 mL IVP ×3 (00:30→04:12)
[2021-05-09] MEDS: quetiapine 300 mg Tablet PO (01:23)
--- NOTE | 2021-05-09 01:23 | PC.NURSE ---
Dr. Ocasio was called about 15 minutes ago, and notified that the 0.5 mg of Haldol IV did not work, and that the patient was still anxious and reporting that she was having breathing trouble. The physician was informed that the patient's oxygenation has been in the 90's and that respirations had been in the mid 20's. I received orders to administer the 300 mg of seroquel, scheduled for 0900, now, and to administer another 0.5 mg of Haldol IV if needed at this time. The physician was also informed that the patient continues to yell that she's going to , wants to be intubated, needs the doctor to be called, and that she needs to have someone in the room. It was also reported by Dr. Ocasio that she exhibited similar behavior in the emergency department and settled somewhat down when the T.V. was turned on.
[2021-05-09] MEDS: dexmedeTOMIDine 0.9 % NaCL 400 MCG/100 ML PREMIX 34.02 MCG IV ×2 (01:55→05:10)
--- NOTE | 2021-05-09 03:00 | PC.NURSE ---
Received an order from Dr. Ocasio to place a garcia, due to the patient demonstrating incontinence, anxiety, and respiratory isssues that prevents her from moving much.
[2021-05-09] MEDS: ipratropium-albuterol 3 mL Neb INHALATION ×4 (03:33→20:03)
[2021-05-09] MEDS: vancomycin 1,250 MG/250 ML PIGGYBACK 250 MG IV ×3 (03:52→18:59)
[2021-05-09] MEDS: morphine 4 mg/mL SDV 1 mL 2 MG IVP ×2 (04:10→12:05)
[2021-05-09] MEDS: ALPRAZolam 0.5 mg Tablet PO ×2 (04:12→10:28)
[2021-05-09] MEDS: enoxaparin 40 mg/0.4 mL Syringe SUBCUT (05:10)
[2021-05-09] MEDS: FUROsemide 20 mg Tablet PO (05:10)
[2021-05-09 05:17] LABS: ABG PCO2 41.7 mmHg (35-45); ABG PH Result 7.38 (7.35-7.45); Arterial Blood Gas Hematocrit 31.4 % (37-47); Base Excess ABG -0.6 mmol/L (-2.0-2.0); Blood Gas Allen Test Pos; Blood Gas Sample Site Radial, right; Blood Gas Sample Type Arterial; HCO3 ABG 24.6 mmol/L (22-26); PO2 ABG 86.6 mmHg (80.0-100.0)
--- NOTE | 2021-05-09 06:38 | PC.NURSE ---
Shift Note Frequent safety and comfort rounds continue. Orders and/or nursing care completed as indicated. Patient monitored for response to intervention and treatment(s). Education provided to patient. Patient was constantly anxious during the shift with an oxygen saturation that stayed in the low to mid 90's. The patient's respirations were anywhere from mid-20's to low 40's. During the shift the patient received several prn doses of Haldol, morphine, and also xanax, due to anxiety. The patient is on heated high flow and an non-rebreather. A Alcantara catheter was placed at 0530 due to incontinence, anxiety, and several respiratory issues.
[2021-05-09 06:40] LABS: Basophils % 0.3 %; Eosinophils # 0.2 10^3/uL (0.0-0.8); Hematocrit 32.6 % (37.0-47.0); Hemoglobin 10.5 g/dL (11.5-15.3); Lymphocytes # 0.9 10^3/uL (0.8-4.8); Lymphocytes % 5.8 %; Mean Corpuscular HGB Conc 32.2 g/dL (30.0-36.0); Mean Corpuscular Volume 93.1 fl (81-99); Mean Platelet Volume 9.4 fL (7.4-10.4); Monocytes # 1.3 10^3/uL (0.2-0.9); Monocytes % 8.9 %; Neutrophils # 12.16 10^3/uL (1.8-7.7); Neutrophils % 82.4 %; Nucleated Red Blood Cells % 0 %; Platelet Count 310 10^3/cmm (130-400); Red Cell Distribution Width 12.6 % (12.1-15.1); White Blood Count 14.8 10^3/uL (4.0-10.0)
[2021-05-09 06:47] LABS: D Dimer 2.03 ug/mIFEU (0-0.59)
[2021-05-09 06:56] LABS: Alanine Aminotransferase 11 U/L (0-33); Albumin Level 3.3 g/dL (3.5-5.2); Alkaline Phosphatase 126 IU/L (35-105); Anion Gap 17.3 (5-19); Aspartate Amino Transferase 14 U/L (0-32); Blood Urea Nitrogen 11 mg/dL (6-20); C Reactive Protein 218.6 mg/L (0.0-4.9); Carbon Dioxide 22 mmol/L (22-29); Chloride 96 mmol/L (98-107); Globulin 3.7 g/dL (1.3-4.6); Glomerular Filtration Rate 126.3 mL/min (90-130); Glucose 143 mg/dL (65-115); Osmolality Calculated 274 mOsm/kg (285-295); Phosphorus 3.5 mg/dL (2.5-4.5); Potassium 4.3 mmol/L (3.5-5.1); Sodium 131 mmol/L (136-145); Total Bilirubin 0.5 mg/dL (0.15-1.2)
--- NOTE | 2021-05-09 07:00 | XR_ITS ---
WS: [id number] XR chest 1V portable [id number] REASON FOR EXAM: sob FINDINGS: Chest is unchanged compared to 05/08/2021. Diffuse reticular nodular and groundglass infiltrates bilat erally. No new abnormality. XR/XR chest 1V portable [id number] IMPRESSION: Stable abnormal chest.
[2021-05-09 07:05] LABS: NT Pro B Type Natriuretic Pept 1057 pg/mL (0-125); Procalcitonin 0.22 ng/mL (0-0.5)
[2021-05-09 07:17] LABS: Creatine Phosphokinase 40 U/L (26-192)
--- NOTE | 2021-05-09 07:45 | PC.NURSE ---
weight was measured with 1 pillow, 1 blanket and sheet. SCD and garcia removed from bed. Shows a10 lb decrease from admit.
[2021-05-09] MEDS: budesonide 0.5 mg/2 mL Neb INHALATION ×2 (08:06→20:03)
[2021-05-09] MEDS: dexmedeTOMIDine 0.9 % NaCL 400 MCG/100 ML PREMIX 28.35 MCG IV ×2 (08:28→11:50)
--- NOTE | 2021-05-09 08:31 | USCV_ITS ---
Dalila Samuels Age: 61 Gender: F : 1960 Exam Date: 05/09/2021 11:22 Ordering Phys: Harsh Glover MD Technologist: Yuridia Richard Exam Location: [facility] – [place] Indication: ENDOCARDITIS BP: 106 / 69 HR: 62 Rhythm: Sinus Technical Quality: Technically difficult study MEASUREMENTS (Male / Female) Normal Values 2D ECHO LV Diastolic Diameter PLAX 5.8 cm 4.2 - 5.9 / 3.9 - 5.3 cm LV Systolic Diameter PLAX 3.5 cm IVS Diastolic Thickness 1.3 cm 0.6 - 1.0 / 0.6 - 0.9 cm IVS Systolic Thickness 2.0 cm LVPW Diastolic Thickness 1.5 cm 0.6 - 1.0 / 0.6 - 0.9 cm LVPW Systolic Thickness 2.2 cm LVOT Diameter 2.0 cm LV Ejection Fraction 2D Teich 68.8 % LV Ejection Fraction MOD 2C 64.7 % LV Ejection Fraction 2C AL 66.1 % LA Diameter 3.3 cm LA Width 2.5 cm LA Height 4.5 cm RA Width 3.0 cm RA Height 4.5 cm Aorta at Sinotubular Diameter 2.6 cm M-MODE Aortic Annulus Diameter 2.6 cm LA Ao Ratio MM 1.3 MV E Point Septal Separation 1.1 cm DOPPLER AV Peak Velocity 127.0 cm/s LVOT Peak Velocity 78.0 cm/s AV Area Cont Eq vti 2.4 cm squared AV Area Cont Eq pk 2.0 cm squared MV Peak Velocity 131.0 cm/s MV Area PHT 3.5 cm squared Mitral E to A Ratio 1.3 MV E' Velocity 52.0 cm/s Mitral E to MV E' Ratio 12.3 Mitral E to LV E' Lateral Ratio 11.5 Mitral E to LV E' Septal Ratio 13.1 TR Peak Velocity 289.8 cm/s TR Peak Gradient 33.6 mmHg TR Mean Velocity 251.1 cm/s TR Mean Gradient 26.5 mmHg TR Velocity Time Integral 130.8 cm TV Peak E Velocity 83.0 cm/s Right Atrial Pressure 15.0 mmHg Pulmonary Artery Systolic Pressu 48.6 mmHg PV Peak Velocity 88.0 cm/s RV Acceleration Time 0.1 s RV Ejection Time 0.4 s RV AcT/ET 0.2 FINDINGS Left Ventricle LV is dilated. LV systolic function is grossly normal. Regional wall motion abnormalities can not be ruled out because of poor visualization. Normal diastolic filling pattern. Right Ventricle The right ventricle is normal in size and function. Right Atrium Not well visualized Left Atrium Grossly normal in size Mitral Valve Mild mitral annular calcification without significant stenosis or prolapse. There is trace mitral regurgitation. Aortic Valve Not well visualized. No significant stenosis. There is no aortic regurgitation. Tricuspid Valve Not well visualized. Mild tricuspid regurgitation. RVSP is 45- 50mmHg. This is consistent with moderate pulmonary hypertension. Pulmonic Valve Not visualized Pericardium Normal pericardium without effusion. Aorta Normal ascending aorta dimension. CONCLUSIONS Technically limited quality echocardiogram because of poor ultrasonic windows. Left ventricle appears to be dilated. Diastolic function is grossly normal. Regional wall motion abnormalities cannot be ruled out because of poor visualization. Normal diastolic function. Trace mitral regurgitation. Mild tricuspid regurgitation. Moderate pulmonary hypertension. Valvular structures are not well visualized. No comparison studies are available Abhishek Perkins MD (Electronically Signed) Final Date: 10 May 2021 12:49 S
[2021-05-09] MEDS: dexamethasone 10 mg/mL INJ 6 MG IVP (08:53)
[2021-05-09] MEDS: fluoxetine 20 mg Capsule 80 MG PO (08:54)
[2021-05-09] MEDS: pantoprazole DR 40 mg Tablet PO (08:54)
[2021-05-09] MEDS: lamoTRIgine 100 mg Tablet 150 MG PO (08:54)
[2021-05-09] MEDS: buPROPion SR (12 HR) 150 mg Tablet PO ×2 (08:59→21:57)
[2021-05-09 10:32] LABS: ABG PCO2 39.5 mmHg (35-45); ABG PH Result 7.42 (7.35-7.45); Alveolar-Arterial Oxygen Gradi 57.7 mmHg (5-10); Arterial Blood Gas Hematocrit 34.5 % (37-47); Base Excess ABG 1.1 mmol/L (-2.0-2.0); Blood Gas Allen Test Pos; Blood Gas Operator Identificat CAK; Blood Gas Sample Site Radial, right; Blood Gas Sample Type Arterial; Carboxyhemoglobin 1.6 %THgb (0.4-20.1); HCO3 ABG 25.6 mmol/L (22-26); Ionized Calcium Level - ABG 1.2 mmol/L (1.1-1.4); Methemoglobin 0.9 % (0.4-1.5); Oxygen Device HAG; PO2 ABG 42.8 mmHg (80.0-100.0); Potassium Level - ABG 4.3 mmol/L (3.5-5.0); Total Hemoglobin 11.3 g/dL (12-16)
[2021-05-09 10:43] LABS: Vancomycin Trough 14.9 ug/mL (10-15)
--- NOTE | 2021-05-09 10:46 | PC.CHAP ---
Pastoral Care Encounter/Spiritual Assessment Type of Contact [] Declined hematology nurse educator visit [] Patient/Family/Request visit [] Outpatient visit [] Follow-up visit [] Physician referral [] Code/Alert [x] Routine visit [] Staff referral [] Actively dying [] Patient sleeping [] Family support [] [] Out of room [] Palliative care [] [] Receiving care in room [] Pre-surgical visit [] Trauma [] Long length of stay [x] ICU visit [x] Other:isolated Relational/Emotional Strength [] Patient feels connected with others/family/visitors/staff [] Distress [] Loneliness/isolation [] Abandonment Spirituality of Patient [] Person of Love [] Attends Evangelical of their Love [] Believes in Prayer [] Reads Bible or Holiness materials [] There are Spiritual issues to be addressed 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 [x] Prayer [] Active listening [] Non-anxious presence [] Spiritual/emotional support [] Crisis/trauma care [] Spiritual counseling [] Bereavement support [] Provided bereavement packet [] Provided Bible/devotional materials [] Provided toy/stuffed animal, coloring book to patient or family member [] Provided Communion [] Anointing/Points [] Salvation [x] Completed spiritual assessment [] Other: Impact on Illness or Injury [] Angry [] Fearful [] Anxious [] Often cries [] Exhaustion [] Unable to work [] Unable to attend adventist [] Unable to walk/stand [] Unable to read [] Unable to drive [] Unable to eat/drink [] Unable to sleep [] Unable to be with family [] Patient intubated [] Other: Summary Time spent with patient
--- NOTE | 2021-05-09 12:43 | P.PN_ITS ---
Subjective Subjective: Interval history: This morning patient was seen, currently she is on heated high flow, 40 L, 75% FiO2, she is alert to person, to place, not to time, follows commands, she is telling me that she cannot breathe, is tachypneic, is quite anxious, denies any chest pain, no back pain, early in the afternoon she did receive morphine, is less anxious, and is doing better I spoke to patient's daughter, who lives out in [place], but is here locally temporarily, her sister recently of fentanyl overdose, her mom lives out of converted motel rooms into apartments in [place], she tells me that her mom struggles with anxiety, depression, and bipolar disorder, she does have a history of drug use, but she believes this more remote, she tells me that she is not very close with her mom, but her aunt is quite close with her mom she will get us her contact number, I advised daughter that currently patient is in acute respiratory failure, has a high risk of intubation in the next 24 to 48 hours, status stable, prognosis is guarded Vitals/I&O/Wt Last Vital Signs Temp 97.4 F L 05/09/21 08:30 Pulse 82 05/09/21 12:00 Resp 44 H 05/09/21 12:05 BP 116/84 05/09/21 12:00 Pulse Ox 92 05/09/21 11:34 05/08/21 05/09/21 05/09/21 22:59 06:59 14:59 Intake Total 683.298 / 880.822 725.978 / 1606.800 315.445 / 315.445 Output Total 250 / 250 1000 / 1000 Balance 683.298 / 880.822 475.978 / 1356.800 -684.555 / -684.555 Weight last 48 hrs Weight 113.398 kg Physical Exam Const: COMMON NORMALS: no acute distress GENERAL APPEARANCE: anxious ORIENTATION/CONSCIOUSNESS: Yes awake, Yes oriented to person and Yes oriented to place; not oriented to time Resp: COMMON NORMALS: normal respiratory effort and clear to auscultation bilaterally EFFORT & INSPECTION: Yes tachypneic AUSCULTATION: clear to auscultation bilaterally Cardio: COMMON NORMALS: regular rate, regular rhythm, S1 normal heart sound present and S2 normal heart sound present RATE: regular rate RHYTHM: regular rhythm HEART SOUNDS: S1 normal heart sound present and S2 normal heart sound present GI: COMMON NORMALS: Normal to inspection, nondistended, normoactive bowel sounds present, Soft to palpation and non-tender PALPATION: Yes Soft to palpation Extremity: COMMON NORMALS: no pedal edema NARRATIVE EXTREMITY EXAM: Right lower extremity amputation, secondary to infection Neuro: SENSORIUM/ORIENTATION: Yes oriented to person, Yes oriented to place and No oriented to time Urinary Catheter Management^: 2-way Urethral: Cath Placed During This Visit: yes Reason for Continuing Indwelling Catheter: Accurate Measurement of Urinary Output in Critically Ill Patients Urinary Catheter Date of Insertion: 05/09/21 Urinary Catheter Time of Insertion: 05:30 Data : 05/09/21 06:00 05/09/21 06:00 Micro: Microbiology 05/08/21 18:30 Bacterial Antigens - Final Urine,Clean Catch 05/07/21 05:06 Blood Culture - Preliminary Blood NEGATIVE TO DATE 05/07/21 04:40 Blood Culture - Preliminary Blood NEGATIVE TO DATE A&P Assessment and plan (1) Pneumonia: Status: Acute Qualifiers: Laterality: bilateral Lung location: unspecified part of lung Pneumonia type: due to unspecified organism Qualified Code(s): J18.9 - Pneumonia, unspecified organism (2) Respiratory failure with hypoxia: Status: Acute Qualifiers: Chronicity: acute Qualified Code(s): J96.01 - Acute respiratory failure with hypoxia (3) COPD exacerbation: Status: Acute (4) Acute encephalopathy: Status: Acute (5) Interstitial lung disease: Status: Acute Additional A&P Information Highly suspicious for acute hypoxic respiratory failure secondary to COVID-19 pneumonia Currently being being managed in ICU Has underlying interstitial lung disease and emphysema CTA of the chest negative for PE, however showed bilateral diffuse patchy infiltrates concerning for COVID-19 pneumonia. Additionally noted left lower lobe consolidation. Rapid Covid antigen is negative, Covid PCR negative, repeat Covid PCR pending. Influenza negative Change to Decadron 6 mg IV push daily Remdesivir is on hold until her Covid status comes back duoneb q6h, budesonide q12h scheduled nebulization Currently on heated high flow Antibiotic coverage broadened to vancomycin, Primaxin, Levaquin Follow blood cultures, sputum cultures, urine cultures Send out fungal studies, sputum studies ordered, viral PCR Flutter valve/spirometer at bedside Annielam for anxiety Precedex for anxiety Morphine for air hunger, anxiety Monitor respiratory status closely Cardiac echocardiogram, bilateral extremity ultrasound for DVT ordered Hep C positive Acute encephalopathy secondary to acute hypoxia, respiratory failure, underlying anxiety, depression, bipolar disorder -At home she takes Wellbutrin 150 twice daily, fluoxetine 80 mg, Lamictal 150 mg p.o. every morning, Seroquel 600 mg at bedtime -We will add BuSpar 10 3 times daily Prophylaxis: Lovenox Full code Attestations Medical Necessity Statement*: Patient requires hospitalization for acute respiratory failure, secondary to pneumonia, Covid PUI, anxiety and depression, acute encephalopathy Coding Level of Care Code Acute Hemmer Lockstitch for [facility] Fwd Diagnoses Pneumonia J18.9 Laterality: bilateral Lung location: unspecified part of lung Pneumonia type: due to unspecified organism Respiratory failure with hypoxia J96.01 Chronicity: acute COPD exacerbation J44.1 Acute encephalopathy G93.40 Interstitial lung disease J84.9
[2021-05-09] MEDS: BuSPIRONE 10 mg Tablet PO (14:32)
--- NOTE | 2021-05-09 14:58 | PC.RESP ---
SMOKING CESSATION AND PULMONARY REHAB INFORMATION SENT TO PATIENT.
--- NOTE | 2021-05-09 15:02 | PC.RESP ---
SMOKING CESSATION AND PULMONARY REHAB INFORMATION SENT TO PATIENT.
--- NOTE | 2021-05-09 15:38 | XR_ITS ---
WS: [id number] XR chest 1V portable [id number] REASON FOR EXAM: ET/ OG FINDINGS: Since the examination of earlier today: Endotracheal tube placement with the tip the level of the aortic arch above the parag. Nasogastric tube in place the tip is at the level of the body of the stomach. Right jugular central venous line the tip at the atrial level. Diffuse bilateral reticular and groundglass infiltrates. No significant change from earlier today. XR/XR chest 1V portable [id number] IMPRESSION: Placement of lines and tubes as above.
[2021-05-09 16:12] LABS: ABG PCO2 59.8 mmHg (35-45); ABG PH Result 7.24 (7.35-7.45); Alveolar-Arterial Oxygen Gradi 71.9 mmHg (5-10); Arterial Blood Gas Hematocrit 33.7 % (37-47); Base Excess ABG -2.6 mmol/L (-2.0-2.0); Blood Gas Allen Test Pos; Blood Gas Operator Identificat CAK; Blood Gas Sample Site Brachial, right; Blood Gas Sample Type Arterial; Blood Gas Tidal Volume 0.43; Carboxyhemoglobin 1.4 %THgb (0.4-20.1); HCO3 ABG 25.5 mmol/L (22-26); HGB O2 Sat 93.5 % (95-100); Ionized Calcium Level - ABG 1.3 mmol/L (1.1-1.4); Methemoglobin 0.4 % (0.4-1.5); Oxygen Device VENT; Oxygen Saturation ABG 95.3; PO2 ABG 86.7 mmHg (80.0-100.0); Potassium Level - ABG 4.3 mmol/L (3.5-5.0)
--- NOTE | 2021-05-09 16:12 | P.CONIM_ITS ---
Providers/Reason For Consult Consulting Physician/Specialty*: Contreras Fernández MD /Pulmonary Critical Care Medicine Reason for Consult*: Acute hypoxic respiratory failure secondary to ARDS due to possible bacterial pneumonia Requesting Physician: Harsh Glover MD Attending Physician: Harsh Glover MD History of Present Illness History of Present Illness Dalila Samuels is a 61 year old female with PMH chronic pain syndrome, COPD, PVD, GERD, hepatitis C, peripheral vascular disease, borderline personality disorder, schizoaffective disorder, IV drug abuse, nicotine and opiate dependence currently admitted to ICU for hypoxic respiratory failure secondary to ARDS due to suspected bacterial pneumonia. COVID-19 PCR negative twice. Upon review of chart, she presented to ER with 3 days of fever, states up to 101 Fahrenheit at home, associated with chills, recent cough with expectoration and shortness of breath with home saturation 8486% on room air on 02/04/2021.At a baseline she states her oxygen requirement stays between 94 to 95%. He has COPD, multiple inhalers at home which she has been trying to use without significant relief. During admission as per admitting attending note patient has diffuse wheezing on auscultation bilaterally and CT chest chest with bilateral groundglass infiltrates concerning for COVID-19 and also left noted left lower lobe consolidation. She was vaccinated with moderna 2 dose mRNA vaccine series 7 months ago. Upon arrival in the ER, she was noted to be hypoxic, placed on 6 L/min supplemental O2 via nasal cannula, which escalated quickly to 15 L of nonrebreather mask. Also patient has significant psychiatric history and drug dependence history and high doses of psychiatric medications. In the ICU patient was on Saturating 92% when she is calm and cooperative on hyponasal cannula 40 L 75% but was requiring Precedex drip and receiving Xanax, Ativan as needed, morphine as needed for her severe anxiety. Pulmonary critical care consulted for acute hypoxic respiratory failure secondary to ARDS due to possible bacterial pneumonia and evaluation for bronchoscopic inspection and to obtain BAL sample for further studies. When I saw the patient today, she is waxing and waning mentation and appeared extremely confused and anxious. So decision was made to intubate her. Post intubation bronchoscopy revealed severe tracheobronchomalacia and mucopurulent secretions bilaterally which were suctioned. Also noted foreign body in right middle lobe which was later retracted using care with bronchoscope and found to be 10 mm x 5 mm popcorn kernel. Patient was sedated with fentanyl 150, Versed 4 mg, propofol 40 mg and plan is to paralyze her if needed. Other labs and imaging reviewed Review of Systems General: Reports: ROS unobtainable due to medical condition and ROS unobtainable due to mental status Meds/Allergies Home Medications and Allergies Home Medications Medication Instructions Recorded Confirmed Last Taken Type miscellaneous medical supply See Rx Instructions MISCELLANEOUS 11/28/19 05/07/21 Unknown Rx .COMPLEX #1 each dextromethorphan polistirex 30 10 ml PO Q12H PRN #89 ml 12/11/20 05/07/21 Unknown Rx mg/5 mL oral susp ext.release 12hr albuterol sulfate 2.5 mg INHALATION Q4H PRN #180 ml 01/13/21 05/07/21 Unknown Rx albuterol sulfate 90 mcg/actuation 2 puff INHALATION Q6H PRN 30 Days 01/13/21 05/07/21 Unknown Rx aerosol inhaler #18 gm budesonide 0.5 mg/2 mL suspension 0.5 mg INHALATION BID #60 ml 01/13/21 05/07/21 Unknown Rx for nebulization epinephrine 0.3 mg/0.3 mL 0.3 mg IM Q15M PRN #2 each 01/13/21 05/07/21 Unknown Rx injection, auto-injector miscellaneous medical supply See Rx Instructions MISCELLANEOUS 01/13/21 05/07/21 Unknown Rx .COMPLEX #1 ea vits no.129-ferrous fum 1 tab PO DAILY 90 Days #90 tab 01/13/21 05/07/21 Unknown Rx 27 mg iron-folic acid 800 mcg tablet promethazine 12.5 mg tablet 12.5 mg PO DAILY PRN 30 Days #30 01/13/21 05/07/21 Unknown Rx tab famotidine 20 mg tablet 20 mg PO BID 30 Days #60 tab 03/27/21 05/07/21 Unknown Rx ibuprofen 800 mg tablet 800 mg PO TID PRN 30 Days #90 tab 03/27/21 05/07/21 Unknown Rx MDD 2 tabs pregabalin 200 mg capsule 200 mg PO TID 30 Days #90 cap 03/27/21 05/07/21 Unknown Rx umeclidinium 62.5 mcg-vilanterol 1 inh INHALATION DAILY 30 Days #60 04/24/21 05/07/21 Unknown Rx 25 mcg/actuation powdr for ea inhalation bupropion HCl 150 mg PO BID 05/07/21 05/07/21 Unknown History fluoxetine 80 mg PO QAM 05/07/21 05/07/21 Unknown History furosemide 20 mg PO QAM 05/07/21 05/07/21 Unknown History lamotrigine 150 mg PO QAM 05/07/21 05/07/21 Unknown History quetiapine 600 mg PO BEDTIME 05/07/21 05/07/21 Unknown History Allergies Allergy/AdvReac Type Severity Reaction Status Date / Time Penicillins Allergy ALGY-Rash Verified 05/07/21 08:50 Current Medications Current Medications Generic Name Dose Route Start Last Admin Trade Name Freq PRN Reason Stop Dose Admin Acetaminophen 650 mg 05/07/21 04:06 05/07/21 17:20 Acetaminophen 325 Mg Tablet PO 650 mg Q6H PRN Administration Mild/Mod Pain Or Temp >/= 101 Albuterol/Ipratropium 3 ml 05/07/21 09:00 05/09/21 14:00 Ipratropium-Albuterol 3 Ml Neb INHALATION 3 ml Q6H.RESPIRATORY DONALD Administration Alprazolam 0.5 mg 05/08/21 08:25 05/09/21 10:28 Alprazolam 0.5 Mg Tablet PO 0.5 mg Q6H PRN Administration ANXIETY Benzonatate 100 mg 05/07/21 04:06 05/08/21 09:49 Benzonatate 100 Mg Capsule PO 100 mg TID PRN Administration COUGH Budesonide 0.5 mg 05/07/21 08:00 05/09/21 08:06 Budesonide 0.5 Mg/2 Ml Neb INHALATION 0.5 mg BID.RESPIRATORY DONALD Administration Bupropion HCl 150 mg 05/07/21 09:00 05/09/21 08:59 Bupropion Sr (12 Hr) 150 Mg Tablet PO 150 mg Q12H DONALD Administration Buspirone HCl 10 mg 05/09/21 13:30 05/09/21 14:32 Buspirone 10 Mg Tablet PO 10 mg Q12H DONALD Administration Dexamethasone 6 mg 05/09/21 08:00 05/09/21 08:53 Dexamethasone 10 Mg/Ml Inj IVP 6 mg Q24H DONALD Administration Enoxaparin Sodium 40 mg 05/07/21 06:00 05/09/21 05:10 Enoxaparin 40 Mg/0.4 Ml Syringe SUBCUT 40 mg Q24H DONALD Administration Fluoxetine HCl 80 mg 05/09/21 09:00 05/09/21 08:54 Fluoxetine 20 Mg Capsule PO 80 mg DAILY DONALD Administration Furosemide 20 mg 05/07/21 06:00 05/09/21 05:10 Furosemide 20 Mg Tablet PO 20 mg QAM DONALD Administration Guaifenesin/Dextromethorphan 5 ml 05/07/21 04:06 05/08/21 00:25 Guaifenesin-Dextromethorphan Udc 10 Ml PO 5 ml Q6H PRN Administration cough Haloperidol Lactate 0.5 mg 05/08/21 23:52 05/09/21 04:12 Haloperidol Inj 5 Mg/Ml Inj 1 Ml IVP 0.5 mg Q4H PRN Administration AGITATION dexmedeTOMIDine 0.9 % NaCL 400 mcg in 100 mls @ 0 mls/hr 05/07/21 19:15 05/09/21 11:50 Dexmedetomidine-Ns IV 1 mcg/kg/hr .Q0M DONALD 28.35 mls/hr Administration Protocol Per Protocol Imipenem/Cilastatin Sodium 500 100 mls @ 200 mls/hr 05/08/21 18:30 05/09/21 13:06 mg/ Sodium Chloride IV 200 mls/hr Q6H DONALD Administration Protocol Levofloxacin/Dextrose 750 mg in 150 mls @ 100 mls/hr 05/08/21 18:30 05/08/21 20:11 Levaquin-D5w IV Infused Q24H DONALD Infusion Protocol Vancomycin/PEG/NADA/Lysine/Water 1,250 mg in 250 mls @ 250 mls/hr 05/09/21 03:00 05/09/21 12:18 Vancocin IV 250 mls/hr Q8H DONALD Administration Lamotrigine 150 mg 05/07/21 09:00 05/09/21 08:54 Lamotrigine 100 Mg Tablet PO 150 mg DAILY DONALD Administration Morphine Sulfate 2 mg 05/07/21 04:06 05/09/21 12:05 Morphine 4 Mg/Ml Sdv 1 Ml IVP 2 mg Q4H PRN Administration SEVERE PAIN Pantoprazole Sodium 40 mg 05/07/21 09:00 05/09/21 08:[address] 40 Mg Tablet PO 40 mg DAILY DONALD Administration PFSH Acute PFSH: Medical History Borderline personality disorder Chronic idiopathic pain syndrome Chronic pain syndrome COPD (chronic obstructive pulmonary disease) DDD (degenerative disc disease), cervical DJD (degenerative joint disease), lumbar GERD (gastroesophageal reflux disease) Hepatitis C, chronic History of intravenous drug abuse Nicotine dependence, cigarettes, with other nicotine-induced disorders Opioid dependence, in remission Other stimulant dependence, in remission Psychiatric care PVD (peripheral vascular disease) with claudication Schizoaffective disorder, bipolar type Surgical History H/O tubal ligation Hx of BKA S/P cholecystectomy S/P tonsillectomy Family History Other CAD (coronary artery disease) Diabetes Lung disease Stroke Social History Smoking and tobacco status: current some day smoker cigarettes Years cigarettes smoked: 40 [ Other cigarette details: Hx of 1 PPD x 40 Years ] Quit status (tobacco): considering quitting Second hand smoke exposure: Yes Smoking risk assessment/counseling performed?: Yes Alcohol intake: former Counseling given: No Counseling given: No Lives independently: Yes Household members: none Marital status: Current occupational status: disabled History of recent travel: No Current gender identity: Female Female Reproductive History: Date of last menstrual period: 10/24/20 S pontaneous abortions: No Vitals/I&O/Wt Last Vital Signs Temp 97.4 F L 05/09/21 08:30 Pulse 79 05/09/21 14:17 Resp 16 05/09/21 15:12 BP 116/84 05/09/21 12:00 Pulse Ox 97 05/09/21 15:12 05/09/21 05/09/21 05/09/21 06:59 14:59 22:59 Intake Total 725.978 / 1606.800 315.445 / 315.445 Output Total 250 / 250 1000 / 1000 Balance 475.978 / 1356.800 -684.555 / -684.555 Weight last 48 hrs Weight 250 lb Physical Exam Narrative: EXAM NARRATIVE: Appears drowsy and confused-in moderate respiratory distress, uncooperative HEENT: conj clear, EOMI, PERRL, mmm, Neck: supple, no meningismus Heme: no cervical LAP Pulmonary: Bilateral diffuse crackles Cardiovascular: rrr, nl s1s2, no mrg Abdomen: soft, nt, nd, no r/g, bs+ Extremities: Amputated right BKA, pulses +, no edema, no c/c : no CVA tenderness Skin: intact, no rash MSK: no back or neck pain Neurologic: grossly intact Urinary Catheter Management^: 2-way Urethral: Cath Placed During This Visit: yes Reason for Continuing Indwelling Catheter: Accurate Measurement of Urinary Output in Critically Ill Patients Urinary Catheter Date of Insertion: 05/09/21 Urinary Catheter Time of Insertion: 05:30 Data Labs: Other Labs: Impressions Chest CTA 05/07/21 01:27 IMPRESSION: 1. Hazy bilateral pulmonary opacities, with consolidation in the left lower lobe. Findings may represent community-acquired pneumonia versus COVID-19.. 2. Evaluation of pulmonary arteries is somewhat limited secondary to respiratory motion. 3. No pulmonary embolism. 4. Atherosclerotic disease of the coronary arteries. 5. No aortic dissection. Radiation Dose CTDIVOL = (mGy): DLP = 875.21 (mGy-cm) Chest X-Ray 05/10/21 07:00 IMPRESSION: 1. Tubes and catheters are unchanged from the prior exam. 2. Heart is enlarged but stable when compared to the prior exam. 3. Bilateral pulmonary opacities have improved from the prior exam. Radiation Dose CTDIVOL = (mGy): DLP = (mGy-cm) Venous Duplex 05/10/21 09:00 IMPRESSION: No evidence of deep vein thrombosis. Radiation Dose CTDIVOL = (mGy): DLP = (mGy-cm) Micro: Micro: Microbiology 05/08/21 18:30 Bacterial Antigens - Final Urine,Clean Catch A&P Assessment and plan (1) Respiratory failure with hypoxia: Status: Acute Qualifiers: Chronicity: acute Qualified Code(s): J96.01 - Acute respiratory failure with hypoxia (2) ARDS (adult respiratory distress syndrome): Status: Acute (3) Acute encephalopathy: Status: Acute (4) Pneumonia: Status: Acute Qualifiers: Laterality: bilateral Lung location: unspecified part of lung Pneumonia type: due to unspecified organism Qualified Code(s): J18.9 - Pneumonia, unspecified organism (5) COPD exacerbation: Status: Acute (6) PVD (peripheral vascular disease) with claudication: Status: Acute (7) GERD (gastroesophageal reflux disease): Status: Acute Qualifiers: Esophagitis presence: without esophagitis Qualified Code(s): K21.9 - Ga stro-esophageal reflux disease without esophagitis (8) Anxiety: Status: Acute (9) Nicotine dependence, cigarettes, with other nicotine-induced disorders: Status: Acute (10) Aspiration of foreign body in respiratory tract: Status: Acute Qualifiers: Encounter type: initial encounter Qualified Code(s): T17.908A - Unspecified foreign body in respiratory tract, part unspecified causing other injury, initial encounter (11) Amphetamine addiction: Status: Acute #Altered mental status-drug withdrawal/hypoxia/psychiatric #Hypoxic respiratory failure secondary to ARDS-secondary to pneumonia/fluid overload secondary to amphetamine abuse #Aspiration of foreign body-possible cause of postobstructive pneumonia #COPD exacerbation in patient with nicotine dependence #Significant psychiatric history, schizoaffective disorder, bipolar, drug abuse #History of GERD #History of PVD with claudication -Intubated and connected to mechanical ventilator currently on CMV mode -Sedated with fentanyl, propofol, Versed and plan is to paralyze to comply with vent -Post intubation ABG 7.2 4/59/86/25/95% on CMV 430/14/10/100%-increase CV to 450 -CT chest revealed hazy bilateral pulmonary opacities, with consolidation in the left lower lobe. Findings may represent community-acquired pneumonia versus COVID-19. Evaluation of pulmonary arteries is somewhat limited secondary torespiratory motion. No pulmonary embolism. -Positive patient bronchoscopy revealed a foreign body in RML-later retracted with therapeutic bronchoscope 10 mm x 5 mm popcorn kernel -BAL obtained from RML sent for galactomannan, beta D glucan, PCP, microbiology cultures, -Continue DuoNeb every 6 scheduled ablation and Pulmicort 0.5 mg twice daily. -Currently on vancomycin/imipenem/levofloxacin for CAP/atypical pneumonia -Covid PCR x2 --we will discontinue dexamethasone -Patient also receiving Seroquel 600 p.o. at bedtime, Loxitane 80 mg p.o. daily, BuSpar 10 mg every 12 hours -I/O+ 1.2 L over last 24 hours-Lasix 20 mg given-monitor I&O to keep net even -Will obtain echocardiogram; BNP 1057 -U tox positive for amphetamines -Sugars moderately controlled -GI prophylaxis Protonix -DVT prophylaxis Lovenox -Prognosis guarded -Recently lost her daughter for fentanyl overdose, another daughter lives in [place] Recommendations conveyed to hospitalist, RN, RT aking care of the patient Consult Attestations Medical Necessity Statement: AMS and acute hypoxic respiratory failure secondary to ARDS due to pneumonia/fluid overload due to amphetamine use Time Spent in Patient Care: Greater than 35 minutes (>than 50% of time spent in counselling and/or direct pt care on unit) . Critical Care Time: The high probability of a clinically significant, sudden or life threatening deterioration of the patient's [neurological, pulmonary, cardiac] system(s) required my full and direct attention, intervention and personal management. The critical care time is as shown. This time is in addition to time spent performing any reported procedures but includes the following: [x] Data and vital sign review and interpretation [x] Patient assessment, examination and intervention [x] Documentation [x] Medication orders and management Critical Care Time (min): 120 Coding Level of Care Code New Pt Acute Elevator Constructor for Chg Fwd Patient Type New History Comprehensive Exam Comprehensive Medical Decision Making High Complexity Diagnoses Respiratory failure with hypoxia J96.01 Chronicity: acute ARDS (adult respiratory distress syndrome) J80 Acute encephalopathy G93.40 Pneumonia J18.9 Laterality: bilateral Lung location: unspecified part of lung Pneumonia type: due to unspecified organism COPD exacerbation J44.1 PVD (peripheral vascular disease) with claudication I73.9 GERD (gastroesophageal reflux disease) K21.9 Esophagitis presence: without esophagitis Anxiety F41.9 Nicotine dependence, cigarettes, with other nicotine-induced disorders F17.218 Aspiration of foreign body in respiratory tract T17.908A Encounter type: initial encounter Amphetamine addiction F15.20 Time Spent (min) 120
--- NOTE | 2021-05-09 16:13 | PM.ACPR ---
Procedure/Consent Time out: Time Out Performed: Yes Consent: Consent for Procedure: Consent obtained from other (indicate) (Verbal consent from next of kin), Emergency procedure, Risks & Benefits reviewed and Agrees to proceed with procedure Procedure Narrative: Endotracheal Intubation Procedure Note Time of the procedure: 1414 Indication for endotracheal intubation: Impending respiratory failure Consent: The patient was in immediate danger, and required the procedure emergently. Verbal consent obtained from NOK. Sedation: Etomidate 12 mg, Versed 2 mg, fentanyl 50 mg, Paralytic: rocuronium 80 mg Equipment: [place] scope blade 3 View: Grade 1 view Cricoid Pressure: No Number of attempts: 1 ETT location confirmed by colorimeter, condensation in ET tube, chest x-ray Contreras DatarMD Pulm/Critical Care Medicine Acute Procedures Epistaxis Control: Time out performed: Yes
--- NOTE | 2021-05-09 16:13 | PM.ACPR ---
Procedure/Consent Time out: Time Out Performed: Yes Consent: Consent for Procedure: Consent obtained from other (indicate) (Verbal consent taken from next of kin) and Emergency procedure Procedure Narrative: Procedure time: 1440 Procedure: Right internal jugular Central venous access placement Indication: right internal jugular central line as patient needs multiple drips including sedation, paralytics, pressors Tail End Rider(s): Contreras Lowryr Consent: Verbel consent obtained from next of kin Time out called. [place] precautions applied. Site: right internal jugular vein Catheter: 7 Fr, 20 cm, Triple Lumen Sutured at: 20 cm Anesthesia: 5 cc 1% lidocaine without epinephrine Description: Area prepped with chlorhexidine and draped in a universal sterile manner. The vessel anatomy and patency was examined by ultrasound probe which was covered with sterile probe cover. The needle was inserted into the vessel under ultrasound guidance, after venous blood aspirated the guidewire was inserted through the needle and kept in situ while the needle was removed. Placement of guidewire in the vein and in relation to the adjacent artery was verified by ultrasound. Catheter was then advanced over the guidewire after dilation and guidewire successfully removed.The catheter was sutured to the skin and sterile dressing with chlorhexidine patch placed. Number of attempts: 1 Dilator applied: 1, number of Dilations: 1 Placement Verified by: Ultrasound; Blood draw from all ports and chest x-ray EBL: 10 cc Complications: None Ultrasound guidance used: Yes Images saved: Yes Acute Procedures Epistaxis Control: Time out performed: Yes
[2021-05-09 16:48] LABS: Coronavirus Test Green County Not Detected
[2021-05-09] MEDS: etomidate 20 ML 80 MG (16:48)
[2021-05-09] MEDS: propofol 10 mg/mL SDV 20 mL 200 MG (16:49)
[2021-05-09] MEDS: rocuronium 10 mg/mL INJ 5mL 50 MG (16:49)
[2021-05-09] MEDS: LORazepam 2 mg/mL INJ 1 mL (16:49)
[2021-05-09] MEDS: fentaNYL 50 mcg/mL INJ 2mL IVP (16:50)
--- NOTE | 2021-05-09 17:23 | PC.NURSE ---
Bedside Bronch done with Rula Mota RN and Datar. Went well. GI lab called in to remove obstacle found in lung.
[2021-05-09] MEDS: cisatracurium 100 MG in sodium chloride 0.9% 50 ML IV (17:51)
--- NOTE | 2021-05-09 18:06 | PC.NURSE ---
Precedex was pulled and hung. NOt scanned before the medication was discontinued.
[2021-05-09] MEDS: levofloxacin-dextrose 5 % 750 MG/150 ML PREMIX 100 MG IV (18:08)
[2021-05-09] MEDS: propofol 1,000 MG/100 ML INJ 27.22 MG IV ×2 (18:08→21:49)
--- NOTE | 2021-05-09 18:22 | P.PCN_ITS ---
Procedure/Consent Time out: Time Out Performed: Yes Consent: Consent for Procedure: Consent obtained from other (indicate) (Patient next of kin), Risks & Benefits reviewed and Agrees to proceed with procedure Procedure Narrative: Procedure: Flexible bronchoscopy with airway inspection and obtaining BAL Pre-Operative Diagnosis: Pneumonia Post-Operative Diagnosis: Same Indication: Acute hypoxic respiratory failure due to ARDS secondary to cardiac pneumonia Anesthesia: Patient is already intubated and is on Versed 2 mg gtt., fentanyl 150 mg gtt., propofol 40 mg gtt.-dose titrated to achieve adequate sedation Pre-procedure Evaluation: Patient was evaluated clinically and ancillary testing reviewed. The risk of having active MTB infection is very low in my clinical judgement. ASA: 4 Malampati score: unable to evaluate due to presence of endotracheal tube Consent: Consents were obtained from next of kin and placed in the chart Procedure Details: Time out was performed by the procedure team and nursing staff. Vent support maintained on Fio2 100. The bronchoscope was introduced through the ETT. A bronchoscopic airway exam was performed to evaluate the visible tracheobronchial tree to the segmental level. Summary of Significant Findings: -Bronchoscope passed through ET tube and significant tracheomalacia noted. Main parag visualized which was sharp and normal. Then the scope was passed through the right bronchial tree was assessed to include the right mainstem bronchus, RBI, and RUL/RML/RLL bronchi to the segmental and subsegmental levels. There is a foreign body noted at the entrance of right middle lobe and attempt to suction unsuccessful. No active bleeding noted. Mucosa surrounding the foreign body appeared erythematous. The mucous secretions noted to right lower lobe which was suctioned right away Then the scope was left bronchial tree was assessed to include the left mainstem bronchus, VEE, Lingula, and LLL bronchi to the segmental and subsegmental level. No active bleeding noted. Mucosa appeared normal. Clear secretions were noted from the left lower lobe which were suctioned right away. BAL obtained from left lower lobe. As it was difficult with the disposable ICU bedside bronchoscope to retract the foreign body from right middle lobe. Plan is to contact GI/bronchoscopy lab to bring therapeutic bronchoscope and forceps to retrieve foreign body, and to take time to make both arrangements, procedure terminated and bronchoscope removed. Estimated Blood Loss: None Specimens: Bronchoalveolar lavage was taken from left lower lobe and sent for microbiology cultures, fungal cultures and PCP. Complications:None; patient tolerated the procedure well. Disposition: Patient remains critically ill, intubated and stays in ICU Patient tolerated the procedure well. Contreras Fernández MD Pulmonary critical Care Medicine [facility] Acute Procedures Epistaxis Control: Time out performed: Yes
--- NOTE | 2021-05-09 19:06 | PC.NURSE ---
Bronchoscopy done without difficulty.
--- NOTE | 2021-05-09 19:25 | PC.NURSE ---
Shift Note- Pt had a very restless morning. Anxiety was very high and sats were difficult to keep in the 90's. sHe would pant repeatedly and not breath through her nose where her 02 was going> Dr. Fernández decided to intubate pt to let her rest and give her comfort. Intubation went well. Very difficult to sedate. Dr. Fernández ordered for Fentanyl to run from 150-200mcg. Nimbex started for Bronchoscopy. Bronchoscopy done x2. During the first Bronch a large foreign substance was noticed and was not able to retreave with the equipment he was using at the time. GI lab was called in.
--- NOTE | 2021-05-09 19:55 | PM.ACPR ---
Procedure/Consent Time out: Time Out Performed: Yes Consent: Consent for Procedure: Consent obtained from other (indicate) (Patient next of kin), Risks & Benefits reviewed and Agrees to proceed with procedure Procedure Narrative: Procedure: Flexible therapeutic bronchoscopy for foreign body retrieval Pre-Operative Diagnosis: Pneumonia and foreign body in right middle lobe Post-Operative Diagnosis: Same Indication: Acute hypoxic respiratory failure due to ARDS secondary to cardiac pneumonia, intubated couple of hours ago, post intubation bedside bronchoscopy for airway inspection and obtaining BAL showed foreign body at the right middle lobe ostium. After unsuccessful attempt to suction foreign body with disposable ICU bronchoscope decision was made to terminate the procedure and await for therapeutic bronchoscope and forceps for retrieval of foreign body. Anesthesia: Patient is already intubated and is on Versed 2 mg gtt., fentanyl 150 mg gtt., propofol 40 mg gtt.-also started on Nimbex gtt.; 10 mL additional propofol given and drips were dose titrated to achieve adequate sedation and paralysis Pre-procedure Evaluation: Patient was evaluated clinically and ancillary testing reviewed. The risk of having active MTB infection is very low in my clinical judgement. ASA: 4 Malampati score: unable to evaluate due to presence of endotracheal tube Consent: Consents were obtained from next of kin and placed in the chart Procedure Details: Time out was performed by the procedure team and nursing staff. Vent support maintained on Fio2 100. The bronchoscope was introduced through the ETT. A bronchoscopic airway exam was performed to evaluate the visible tracheobronchial tree to the segmental level. Summary of Significant Findings: -Bronchoscope passed through ET tube and as patient was paralyzed could see normal mucosa of distal trachea with less collapse on expiration, main parag visualized which was sharp and normal. Then the scope was passed through the right bronchial tree was assessed to include the right mainstem bronchus, RBI, and RUL/RML/RLL bronchi to the segmental and subsegmental levels. There is a foreign body noted at the entrance of right middle lobe and attempt to retract using forceps were unsuccessful. Then with continuous negative suction foreign body was gently retracted. Gross inspection identified as 10 mm x 5 mm single popcorn kernel.there is no active bleeding noted. Mucosa surrounding of right middle lobe segment appeared erythematous and somewhat edematous. The mucous secretions from right middle lobe were suctioned and BAL samples sent from right middle lobe. Then the scope was left bronchial tree was assessed to include the left mainstem bronchus, VEE, Lingula, and LLL bronchi to the segmental and subsegmental level. No active bleeding noted. Mucosa appeared normal. Clear secretions were noted from the left lower lobe which were suctioned right away. Removed bronchoscope and procedure terminated. Estimated Blood Loss: None Specimens: Bronchoalveolar lavage was taken from right middle lobe were sent for PCP PCR, galactomannan, cryptococcus, Complications:None; patient tolerated the procedure well. Disposition: Patient remains critically ill, intubated and stays in ICU Contreras Fernández MD Pulmonary critical Care Medicine [facility] Acute Procedures Epistaxis Control: Time out performed: Yes
[2021-05-09] MEDS: quetiapine 300 mg Tablet 600 MG PO (21:57)
[2021-05-10] VITALS (60 sets, daily range): BP systolic 90–143; BP diastolic 55–89; PULSE 56–101; RESP 16–22; TEMP 36.4–36.8; O2SAT 85–100; BMI 40.0
[2021-05-10] MEDS: BuSPIRONE 10 mg Tablet PO (00:55)
[2021-05-10] MEDS: propofol 1,000 MG/100 ML INJ 30.62 MG IV (01:15)
[2021-05-10] MEDS: vancomycin 1,250 MG/250 ML PIGGYBACK 250 MG IV ×3 (02:08→18:19)
[2021-05-10] MEDS: ipratropium-albuterol 3 mL Neb INHALATION ×4 (02:42→20:24)
[2021-05-10 04:08] LABS: ABG PCO2 50.5 mmHg (35-45); Arterial Blood Gas Hematocrit 37.5 % (37-47); Base Excess ABG -2.2 mmol/L (-2.0-2.0); Blood Gas Allen Test Pos; Blood Gas Sample Site Radial, right; Blood Gas Sample Type Arterial; Blood Gas Tidal Volume 0.45; HCO3 ABG 24.7 mmol/L (22-26); Oxygen Device VENT; PO2 ABG 90.7 mmHg (80.0-100.0)
[2021-05-10] MEDS: propofol 1,000 MG/100 ML INJ 34.02 MG IV ×7 (04:23→22:27)
[2021-05-10 05:20] LABS: Basophils % 0.3 %; Eosinophils % 0.1 %; Hematocrit 31.4 % (37.0-47.0); Hemoglobin 10.1 g/dL (11.5-15.3); Lymphocytes # 0.6 10^3/uL (0.8-4.8); Lymphocytes % 4.5 %; Mean Corpuscular HGB Conc 32.2 g/dL (30.0-36.0); Mean Corpuscular Hemoglobin 30.1 pg (28.0-34.0); Mean Corpuscular Volume 93.7 fl (81-99); Mean Platelet Volume 9.1 fL (7.4-10.4); Monocytes # 1.1 10^3/uL (0.2-0.9); Monocytes % 8.3 %; Neutrophils # 10.97 10^3/uL (1.8-7.7); Neutrophils % 84.3 %; Nucleated Red Blood Cells % 0 %; Platelet Count 331 10^3/cmm (130-400); Red Blood Count 3.35 10^6/uL (4.1-5.3); Red Cell Distribution Width 12.5 % (12.1-15.1)
[2021-05-10 05:36] LABS: Ammonia 31 umol/L (11-51); Lactate (Lactic Acid level) 0.9 mmol/L (0.5-2.2)
[2021-05-10 05:45] LABS: INR 1.29 (0.8-1.2)
[2021-05-10 05:49] LABS: D Dimer 1.16 ug/mIFEU (0-0.59)
[2021-05-10 05:58] LABS: NT Pro B Type Natriuretic Pept 885 pg/mL (0-125); Procalcitonin 0.35 ng/mL (0-0.5)
[2021-05-10 06:09] LABS: Alanine Aminotransferase 9 U/L (0-33); Albumin Level 3.1 g/dL (3.5-5.2); Alkaline Phosphatase 140 IU/L (35-105); Aspartate Amino Transferase 11 U/L (0-32); Blood Urea Nitrogen 18 mg/dL (6-20); C Reactive Protein 197.7 mg/L (0.0-4.9); Carbon Dioxide 23 mmol/L (22-29); Chloride 98 mmol/L (98-107); Globulin 2.9 g/dL (1.3-4.6); Glomerular Filtration Rate 126.3 mL/min (90-130); Glucose 99 mg/dL (65-115); Magnesium 1.9 mg/dL (1.7-2.3); NT Pro B Type Natriuretic Pept 872 pg/mL (0-125); Osmolality Calculated 280 mOsm/kg (285-295); Phosphorus 4.5 mg/dL (2.5-4.5); Sodium 134 mmol/L (136-145); Total Bilirubin 0.3 mg/dL (0.15-1.2)
[2021-05-10 06:11] LABS: Creatine Phosphokinase 20 U/L (26-192)
--- NOTE | 2021-05-10 06:21 | PC.NURSE ---
Shift Note Frequent safety and comfort rounds continue. Orders and/or nursing care completed as indicated. Patient monitored for response to intervention and treatment(s). Education was not provided due to the patient being intubated and sedated. There were no significant changes with the patient during the shift. The nimbex was turned off at the beginning of shift and the levophed in the middle of the shift. The patient's vitals remained within normal parameters. Ventilator synchrony has been reached without needing to turn the nimbex back on. Urine output measured 1,650 mL for the whole shift. Currently the patient has fentanyl, propofol, and Versed running for sedation.
[2021-05-10] MEDS: enoxaparin 40 mg/0.4 mL Syringe SUBCUT (06:42)
[2021-05-10] MEDS: FUROsemide 20 mg Tablet PO (06:42)
--- NOTE | 2021-05-10 07:00 | XRR_ITS ---
PROCEDURE INFORMATION: Exam: XR Chest Exam date and time: 05/10/2021 7:00 AM Age: 61 years old Clinical indication: Shortness of breath; Additional info: SOB TECHNIQUE: Imaging protocol: XR of the chest. Views: 1 view. Total images: 1 COMPARISON: CR XR chest 1V portable [id number] 05/09/2021 3:42 PM FINDINGS: Tubes, catheters and devices: Tubes and catheters are unchanged from the prior exam. Lungs: Bilateral pulmonary opacities have improved from the prior exam. Pleural spaces: Unremarkable. No pleural effusion. No pneumothorax. Heart/Mediastinum: Heart is enlarged but stable when compared to the prior exam. Bones/joints: Old left rib fractures are evident. Osseous structures are unchanged from the prior exam. XR/XR chest 1V portable [id number] IMPRESSION: 1. Tubes and catheters are unchanged from the prior exam. 2. Heart is enlarged but stable when compared to the prior exam. 3. Bilateral pulmonary opacities have improved from the prior exam. Radiation Dose CTDIVOL = (mGy): DLP = (mGy-cm)
[2021-05-10] MEDS: budesonide 0.5 mg/2 mL Neb INHALATION ×2 (08:30→20:24)
[2021-05-10] MEDS: fluoxetine 20 mg Capsule 80 MG PO (08:47)
[2021-05-10] MEDS: pantoprazole DR 40 mg Tablet PO (08:47)
[2021-05-10] MEDS: lamoTRIgine 100 mg Tablet 150 MG PO (08:47)
[2021-05-10] MEDS: dexamethasone 10 mg/mL INJ 6 MG IVP (08:49)
--- NOTE | 2021-05-10 09:00 | USR_ITS ---
PROCEDURE INFORMATION: Exam: US Duplex Lower Extremity Veins, Bilateral Exam date and time: 05/10/2021 9:00 AM Age: 61 years old Clinical indication: Other: Hypoxia (past history of covid); Additional info: Dvt, PT getting intubated, will try to scan again on 05/10/21 TECHNIQUE: Imaging protocol: Real-time duplex ultrasound of the extremities with 2-D kelley scale, color Doppler flow and spectral waveform analysis with image documentation. Complete exam focused on the bilateral lower extremity veins. Total images: [id number] COMPARISON: US SoftTissue/Extrem Lmt [id number] 01/29/2019 4:27 PM FINDINGS: Right deep veins: Unremarkable. The common femoral, femoral, proximal profunda femoral and popliteal veins are patent without thrombus. Normal Doppler waveforms. Normal compressibility and/or augmentation response. Right superficial veins: Saphenofemoral junction is patent without thrombus. Left deep veins: Unremarkable. The common femoral, femoral, proximal profunda femoral and popliteal veins are patent without thrombus. Normal Doppler waveforms. Normal compressibility and/or augmentation response. Left superficial veins: Saphenofemoral junction is patent without thrombus. Soft tissues: Unremarkable. US/[place] [id number] IMPRESSION: No evidence of deep vein thrombosis. Radiation Dose CTDIVOL = (mGy): DLP = (mGy-cm)
[2021-05-10] MEDS: buPROPion SR (12 HR) 150 mg Tablet PO ×2 (09:02→20:35)
--- NOTE | 2021-05-10 09:07 | PM.PN ---
Subjective Subjective: Interval history: -Patient seen at bedside today -Currently sedated and plan is to paralyze and prone -Labs and imaging reviewed Medications: Reviewed: Yes Vitals/I&O/Wt Last Vital Signs Temp 97.6 F 05/10/21 04:00 Pulse 80 05/10/21 08:45 Resp 18 05/10/21 08:33 BP 94/58 05/10/21 07:23 Pulse Ox 88 L 05/10/21 08:33 05/09/21 05/10/21 05/10/21 22:59 06:59 14:59 Intake Total 685.814 / 1351.259 646.824 / 1998.083 98.091 / 98.091 Output Total 999 / 1999 1650 / 3650 Balance -314.186 / -648.741 -1003.176 / -1651.917 98.091 / 98.091 Weight last 48 hrs Weight 248 lb Weight 250 lb Physical Exam Narrative: EXAM NARRATIVE: PHYSICAL EXAM: General: lying in bed, sedated and intubated. HEENT:NCAT, PERRLA, EOMI Neck: Supple Lungs: Bilateral air entry present with a diffuse crackles Heart: s1/s2, RRR Abd: soft, NT, ND, BS + Normoactive Extremities: No edema; right BKA amputated TRANSCRIPTION COORDINATOR: sedated and limited TRANSCRIPTION COORDINATOR exam possible. SKIN: no rash LDA: # CVC: Right internal jugular central line 05/09/2021 # [place]: 05/09/2021 Urinary Catheter Management^: 2-way Urethral: Cath Placed During This Visit: yes Reason for Continuing Indwelling Catheter: Accurate Measurement of Urinary Output in Critically Ill Patients Urinary Catheter Date of Insertion: 05/09/21 Urinary Catheter Time of Insertion: 05:30 Data : 05/10/21 05:00 05/10/21 05:00 Other Labs: Laboratory Results WBC 13.0 10^3/uL (4.0-10.0) H 05/10/21 05:00 RBC 3.35 10^6/uL (4.1-5.3) L 05/10/21 05:00 Hgb 10.1 g/dL (11.5-15.3) L 05/10/21 05:00 Hct 31.4 % (37.0-47.0) L 05/10/21 05:00 MCV 93.7 fl (81-99) 05/10/21 05:00 MCH 30.1 pg (28.0-34.0) 05/10/21 05:00 MCHC 32.2 g/dL (30.0-36.0) 05/10/21 05:00 RDW 12.5 % (12.1-15.1) 05/10/21 05:00 Plt Count 331 10^3/cmm (130-400) 05/10/21 05:00 MPV 9.1 fL (7.4-10.4) 05/10/21 05:00 Neut % (Auto) 84.3 % 05/10/21 05:00 Lymph % (Auto) 4.5 % 05/10/21 05:00 [place] % (Auto) 8.3 % 05/10/21 05:00 Eos % (Auto) 0.1 % 05/10/21 05:00 Baso % (Auto) 0.3 % 05/10/21 05:00 Neut # (Auto) 10.97 10^3/uL (1.8-7.7) H 05/10/21 05:00 Lymph # (Auto) 0.6 10^3/uL (0.8-4.8) L 05/10/21 05:00 [place] # (Auto) 1.1 10^3/uL (0.2-0.9) H 05/10/21 05:00 Eos # (Auto) 0.0 10^3/uL (0.0-0.8) 05/10/21 05:00 Baso # (Auto) 0.0 10^3/uL (0.0-0.1) 05/10/21 05:00 Nucleated RBC % (auto) 0 % 05/10/21 05:00 Nucleated RBCs # 0.0 /100WBC 05/10/21 05:00 PT 16.40 SECONDS (12.1-14.9) H 05/10/21 05:00 INR 1.29 (0.8-1.2) H 05/10/21 05:00 APTT 35.7 SECONDS (23.9-36.7) 05/07/21 00:15 Fibrinogen 562 mg/dL (174-498) H 05/07/21 00:15 D-Dimer 1.16 ug/mIFEU (0-0.59) H 05/10/21 05:00 Specimen Type Arterial 05/10/21 03:48 Sample Site Radial, right 05/10/21 03:48 ABG pH 7.30 (7.35-7.45) L 05/10/21 03:48 ABG pCO2 50.5 mmHg (35-45) H 05/10/21 03:48 ABG pO2 90.7 mmHg (80.0-100.0) 05/10/21 03:48 ABG HCO3 24.7 mmol/L (22-26) 05/10/21 03:48 ABG O2 Saturation 95.3 05/09/21 16:01 ABG Base Excess -2.2 mmol/L (-2.0-2.0) L 05/10/21 03:48 Darryl Test Pos 05/10/21 03:48 A-a O2 Gradient 71.9 mmHg (5-10) H 05/09/21 16:01 Hematocrit 37.5 % (37-47) 05/10/21 03:48 Hgb O2 Saturation 93.5 % (95-100) L 05/09/21 16:01 Carboxyhemoglobin 1.4 %THgb (0.4-20.1) 05/09/21 16:01 Methemoglobin 0.4 % (0.4-1.5) 05/09/21 16:01 Total Hemoglobin 11.0 g/dL (12-16) L 05/09/21 16:01 Sodium 138.0 mmol/L (131-143) 05/09/21 16:01 Potassium 4.3 mmol/L (3.5-5.0) 05/09/21 16:01 Glucose 186.0 mg/dL (70-115) H 05/09/21 16:01 Ionized Calcium 1.3 mmol/L (1.1-1.4) 05/09/21 16:01 O2 Delivery Device Vent 05/10/21 03:48 O2 Liters/Min 50.0 % 05/09/21 04:45 FiO2 90.0 % 05/10/21 03:48 Tidal Volume 0.45 05/10/21 03:48 PEEP 10.0 cmH20 05/10/21 03:48 Gas And Oil Checker ID Hinja 05/10/21 03:48 Sodium 134 mmol/L (136-145) L 05/10/21 05:00 Potassium 4.0 mmol/L (3.5-5.1) 05/10/21 05:00 Chloride 98 mmol/L (98-107) 05/10/21 05:00 Carbon Dioxide 23 mmol/L (22-29) 05/10/21 05:00 Anion Gap 17.0 (5-19) 05/10/21 05:00 BUN 18 mg/dL (6-20) 05/10/21 05:00 Creatinine 0.5 mg/dL (0.5-0.9) 05/10/21 05:00 GFR Calculation 126.3 mL/min (90-130) 05/10/21 05:00 Glucose 99 mg/dL (65-115) 05/10/21 05:00 Calculated Osmolality 280 mOsm/kg (285-295) L 05/10/21 05:00 Lactate 0.9 mmol/L (0.5-2.2) 05/10/21 05:00 Calcium 9.0 mg/dL (8.5-10.5) 05/10/21 05:00 Phosphorus 4.5 mg/dL (2.5-4.5) 05/10/21 05:00 Magnesium 1.9 mg/dL (1.7-2.3) 05/10/21 05:00 Ferritin 277 ng/mL (15-150) H 05/07/21 00:15 Total Bilirubin 0.3 mg/dL (0.15-1.2) 05/10/21 05:00 AST 11 U/L (0-32) 05/10/21 05:00 ALT 9 U/L (0-33) 05/10/21 05:00 Alkaline Phosphatase 140 IU/L (35-105) H 05/10/21 05:00 Ammonia 31 umol/L (11-51) 05/10/21 05:00 Lactate Dehydrogenase 516 U/L (135-214) H 05/08/21 20:01 Creatine Kinase 20 U/L (26-192) L 05/10/21 05:00 Troponin T Gen 5 ng/L Cancelled 05/07/21 00:15 Troponin T Baseline 8 ng/L (0-10) 05/07/21 00:15 C-Reactive Protein 197.7 mg/L (0.0-4.9) H 05/10/21 05:00 NT-Pro-B Natriuret Pep 872 pg/mL (0-125) H 05/10/21 05:00 NT-Pro-B Natriuret Pep 885 pg/mL (0-125) H 05/10/21 05:00 Total Protein 6.0 g/dL (6.6-8.7) L 05/10/21 05:00 Albumin 3.1 g/dL (3.5-5.2) L 05/10/21 05:00 Globulin 2.9 g/dL (1.3-4.6) 05/10/21 05:00 Procalcitonin 0.35 ng/mL (0-0.5) 05/10/21 05:00 Vancomycin Trough 14.9 ug/mL (10-15) 05/09/21 09:50 Urine Opiates Screen Negative ng/mL (Negative) 05/07/21 04:24 Ur Barbiturates Screen Negative ng/mL (Negative) 05/07/21 04:24 Ur Phencyclidine Scrn Negative ng/mL (Negative) 05/07/21 04:24 Ur Amphetamines Screen Positive ng/mL (Negative) H 05/07/21 04:24 U Benzodiazepines Scrn Negative ng/mL (Negative) 05/07/21 04:24 Urine Cocaine Screen Negative ng/mL (Negative) 05/07/21 04:24 U Marijuana (THC) Screen Negative ng/mL (Negative) 05/07/21 04:24 RPR Nonreactive (Nonreactive) 05/08/21 20:01 Nasal/Oral COVID-19 PCR Not detected 05/08/21 18:30 Hepatitis A IgM Ab Non-reactive (Nonreactive) 05/07/21 00:15 Hep Bs Antigen Non-reactive (Nonreactive) 05/07/21 00:15 Hep B Core IgM Ab Non-reactive (Nonreactive) 05/07/21 00:15 Hepatitis C Antibody Reactive (Nonreactive) H 05/07/21 00:15 HIV 1&2 Ab & HIV 1 Ag Non-reactive (Non-Reactiv) 05/08/21 20:01 HIV 1&2 Antibody Non-reactive (Non-Reactiv) 10/07/21 20:01 Influenza Type A Ag Negative (Negative) 05/08/21 18:30 Influenza Type B Ag Negative (Negative) 05/08/21 18:30 SARS-CoV-2 Ag (Rapid) Negative (Negative) 05/07/21 00:16 Impressions Chest CTA 05/07/21 01:27 IMPRESSION: 1. Hazy bilateral pulmonary opacities, with consolidation in the left lower lobe. Findings may represent community-acquired pneumonia versus COVID-19.. 2. Evaluation of pulmonary arteries is somewhat limited secondary to respiratory motion. 3. No pulmonary embolism. 4. Atherosclerotic disease of the coronary arteries. 5. No aortic dissection. Radiation Dose CTDIVOL = (mGy): DLP = 875.21 (mGy-cm) Chest X-Ray 05/10/21 07:00 IMPRESSION: 1. Tubes and catheters are unchanged from the prior exam. 2. Heart is enlarged but stable when compared to the prior exam. 3. Bilateral pulmonary opacities have improved from the prior exam. Radiation Dose CTDIVOL = (mGy): DLP = (mGy-cm) Venous Duplex 05/10/21 09:00 IMPRESSION: No evidence of deep vein thrombosis. Radiation Dose CTDIVOL = (mGy): DLP = (mGy-cm) Micro: Microbiology 05/09/21 17:20 Gram Stain - Final Sputum - Endotracheal Tube Aspirate 05/08/21 18:30 Bacterial Antigens - Final Urine,Clean Catch A&P Assessment and plan (1) Respiratory failure with hypoxia: Status: Acute Qualifiers: Chronicity: acute Qualified Code(s): J96.01 - Acute respiratory failure with hypoxia (2) ARDS (adult respiratory distress syndrome): Status: Acute (3) Acute encephalopathy: Status: Acute (4) Pneumonia: Status: Acute Qualifiers: Laterality: bilateral Lung location: unspecified part of lung Pneumonia type: due to unspecified organism Qualified Code(s): J18.9 - Pneumonia, unspecified organism (5) COPD exacerbation: Status: Acute (6) PVD (peripheral vascular disease) with claudication: Status: Acute (7) GERD (gastroesophageal reflux disease): Status: Acute Qualifiers: Esophagitis presence: without esophagitis Qualified Code(s): K21.9 - Gastro-esophageal reflux disease without esophagitis (8) Anxiety: Status: Acute (9) Nicotine dependence, cigarettes, with other nicotine-induced disorders: Status: Acute (10) Aspiration of foreign body in respiratory tract: Status: Acute Qualifiers: Encounter type: initial encounter Qualified Code(s): T17.908A - Unspecified foreign body in respiratory tract, part unspecified causing other injury, initial encounter (11) Amphetamine addiction: Status: Acute #Altered mental status-drug withdrawal/hypoxia/psychiatric #Hypoxic respiratory failure secondary to ARDS-secondary to pneumonia/fluid overload secondary to amphetamine abuse #Aspiration of foreign body-possible cause of postobstructive pneumonia #COPD exacerbation in patient with nicotine dependence #Significant psychiatric history, schizoaffective disorder, bipolar, drug abuse #History of GERD #History of PVD with claudication -Intubated 05/09/2021 and connected to mechanical ventilator currently on CMV mode -Sedated with fentanyl, propofol, Versed and plan is to paralyze and prone -Today ABG 7.3 0/50/90/24/95% on CMV 450/14/10/100%-we will increase respiratory rate to 16 -CT chest revealed hazy bilateral pulmonary opacities, with consolidation in the left lower lobe. Findings may represent community-acquired pneumonia versus COVID-19. Evaluation of pulmonary arteries is somewhat limited secondary to respiratory motion. No pulmonary embolism. -S/p bronchoscopy 05/09/2021 revealed a foreign body in RML-later retrieved with therapeutic bronchoscope 10 mm x 5 mm popcorn kernel -BAL for galactomannan, beta D glucan, PCP, microbiology cultures, pending -Continue DuoNeb every 6 scheduled ablation and Pulmicort 0.5 mg twice daily. -Currently on vancomycin/imipenem/levofloxacin for CAP/atypical pneumonia -Covid PCR x2 --we will discontinue dexamethasone -Patient also receiving Seroquel 600 p.o. at bedtime, Loxitane 80 mg p.o. daily, BuSpar 10 mg every 12 hours -I/O - 1.5 L over last 24 hours-Lasix 20 mg -monitor I&O to keep net even -Will obtain echocardiogram; BNP 1057 -U tox positive for amphetamines -Sugars moderately controlled -GI prophylaxis Protonix -DVT prophylaxis Lovenox -Prognosis guarded -Recently lost her daughter for fentanyl overdose, another daughter lives in [place] Recommendations conveyed to hospitalist, RN, RT aking care of the patient Patient will be prone for 16 hours. We will taper off paralytic and sedation, start feeding once patient is supinated; Attestations Medical Necessity Statement*: AMS and acute hypoxic respiratory failure secondary to ARDS due to pneumonia/fluid overload due to amphetamine use Time Spent in Patient Care: Greater than 35 minutes (>than 50% of time spent in counselling and/or direct pt care on unit). Critical Care Time: The high probability of a clinically significant, sudden or life threatening deterioration of the patient's [neurological, pulmonary, cardiac] system(s) required my full and direct attention, intervention and personal management. The critical care time is as shown. 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 [facility] Diagnoses Respiratory failure with hypoxia J96.01 Chronicity: acute ARDS (adult respiratory distress syndrome) J80 Acute encephalopathy G93.40 Pneumonia J18.9 Laterality: bilateral Lung location: unspecified part of lung Pneumonia type: due to unspecified organism COPD exacerbation J44.1 PVD (peripheral vascular disease) with claudication I73.9 GERD (gastroesophageal reflux disease) K21.9 Esophagitis presence: without esophagitis Anxiety F41.9 Nicotine dependence, cigarettes, with other nicotine-induced disorders F17.218 Aspiration of foreign body in respiratory tract T17.908A Encounter type: initial encounter Amphetamine addiction F15.20
--- NOTE | 2021-05-10 13:36 | PC.NURSE ---
Proned Per Datar; Pt proned with the help of nursing and RT.
--- NOTE | 2021-05-10 14:34 | P.PN_ITS ---
Subjective Subjective: Interval history: Yesterday afternoon, due to worsening respiratory status, increased oxygen requirements, worsening cognition, encephalopathy, patient was intubated by pulmonary team, central line and place, underwent bronchoscopy procedure with findings of corn kernel in the right middle lobe This morning patient was seen, she is intubated, sedated, remains normotensive, afebrile, on 75% FiO2 Vitals/I&O/Wt Last Vital Signs Temp 98.0 F 05/10/21 08:00 Pulse 80 05/10/21 14:25 Resp 18 05/10/21 14:18 BP 136/89 05/10/21 13:30 Pulse Ox 99 05/10/21 14:18 05/09/21 05/10/21 05/10/21 22:59 06:59 14:59 Intake Total 705.814 / 1471.259 646.824 / 2118.083 819.232 / 819.232 Output Total 1000 / 2000 1650 / 3650 1400 / 1400 Balance -294.186 / -528.741 -1003.176 / -1531.917 -580.768 / -580.768 Weight last 48 hrs Weight 112.491 kg Weight 113.398 kg Physical Exam HENMT: COMMON NORMALS: normocephalic HEAD & SCALP: normocephalic Chest: COMMONS NORMALS: normal inspection of the chest OTHER: Right central line in place Resp: COMMON NORMALS: normal respiratory effort, No retractions, No use of accessory muscles and clear to auscultation bilaterally AUSCULTATION: clear to auscultation bilaterally Cardio: COMMON NORMALS: regular rate, regular rhythm, S1 normal heart sound present and S2 normal heart sound present RATE: regular rate RHYTHM: regular rhythm HEART SOUNDS: S1 normal heart sound present and S2 normal heart sound present GI: COMMON NORMALS: Normal to inspection, nondistended, normoactive bowel sounds present, Soft to palpation and non-tender PALPATION: Yes Soft to palpation Extremity: COMMON NORMALS: no pedal edema Urinary Catheter Management^: 2-way Urethral: Cath Placed During This Visit: yes Reason for Continuing Indwelling Catheter: Accurate Measurement of Urinary Output in Critically Ill Patients Urinary Catheter Date of Insertion: 05/09/21 Urinary Catheter Time of Insertion: 05:30 Data : 05/10/21 05:00 05/10/21 05:00 Micro: Microbiology 05/09/21 17:20 Gram Stain - Final Sputum - Endotracheal Tube Aspirate Sputum Culture - Preliminary A&P Assessment and plan (1) Pneumonia: Status: Acute Qualifiers: Laterality: bilateral Lung location: unspecified part of lung Pneumonia type: due to unspecified organism Qualified Code(s): J18.9 - Pneumonia, unspecified organism (2) Respiratory failure with hypoxia: Status: Acute Qualifiers: Chronicity: acute Qualified Code(s): J96.01 - Acute respiratory failure with hypoxia (3) COPD exacerbation: Status: Acute (4) Acute encephalopathy: Status: Acute (5) Interstitial lung disease: Status: Acute Additional A&P Information Acute hypoxic respiratory failure With evidence of acute respiratory distress syndrome With acute encephalopathy Secondary to postobstructive pneumonia Intubated 05/09/2021 Status post bronchoscopy, removal of foreign body right middle lobe With underlying interstitial lung disease and emphysema CTA of the chest negative for PE, however showed bilateral diffuse patchy infiltrates concerning for COVID-19 pneumonia. Additionally noted left lower lobe consolidation. Rapid Covid antigen is negative, first Covid PCR negative, second Covid PCR pending, influenza negative x2 Plan Remdesivir is on hold until her Covid status comes back, Decadron is on hold duoneb q6h, budesonide q12h scheduled nebulization Currently intubated, sedated, fentanyl, Versed, propofol, Nimbex for sedation Continue prone positioning 16 hours with Nimbex, supine off Nimbex, minimal sedation Antibiotic coverage broadened to vancomycin, Primaxin, Levaquin Continue home Seroquel, Wellbutrin, fluoxetine, Lamictal, BuSpar as patient's has severe anxiety, and it was difficult to manage with her respiratory status when she was on high flow Follow blood cultures, sputum cultures, urine cultures Bronchiolar lavage for galactomannan, beta D glucan, PCP, microbiology Send out fungal studies, sputum studies ordered, viral PCR Flutter valve/spirometer at bedside Monitor respiratory status closely Cardiac echocardiogram, left ventricular appears to be dilated, diastolic function is normal,, moderate pulmonary pretension, Hep C positive Right central line in place Protonix for GI prophylaxis Lovenox for DVT prophylaxis Acute encephalopathy secondary to acute hypoxia, respiratory failure, underlying anxiety, depression, bipolar disorder -At home she takes Wellbutrin 150 twice daily, fluoxetine 80 mg, Lamictal 150 mg p.o. 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
[2021-05-10] MEDS: levofloxacin-dextrose 5 % 750 MG/150 ML PREMIX 100 MG IV (17:35)
--- NOTE | 2021-05-10 18:47 | PC.NURSE ---
Shift Note Frequent safety and comfort rounds continue. Orders and/or nursing care completed as indicated. Patient monitored for response to intervention and treatment(s). Education provided includes intubation. Patient and/or customer contact representative verbalized understanding. Pt proned at 1330. Will continue to monitor.
[2021-05-10] MEDS: quetiapine 300 mg Tablet 600 MG PO (20:36)
[2021-05-10] MEDS: cisatracurium 100 MG in sodium chloride 0.9% 50 ML IV (22:08)
[2021-05-11] VITALS (61 sets, daily range): BP systolic 108–166; BP diastolic 65–97; PULSE 60–104; RESP 16–21; TEMP 36.1–36.8; O2SAT 88–100
[2021-05-11] MEDS: BuSPIRONE 10 mg Tablet PO ×2 (00:30→13:05)
[2021-05-11] MEDS: propofol 1,000 MG/100 ML INJ 34.02 MG IV ×8 (00:52→23:18)
[2021-05-11] MEDS: morphine 4 mg/mL SDV 1 mL 2 MG IVP ×2 (02:10→05:23)
[2021-05-11] MEDS: vancomycin 1,250 MG/250 ML PIGGYBACK 250 MG IV ×3 (02:11→19:51)
[2021-05-11] MEDS: ipratropium-albuterol 3 mL Neb INHALATION ×6 (03:15→23:18)
[2021-05-11 03:52] LABS: ABG PCO2 44.1 mmHg (35-45); ABG PH Result 7.39 (7.35-7.45); Base Excess ABG 1.6 mmol/L (-2.0-2.0); Blood Gas Allen Test Pos; Blood Gas Sample Site Radial, left; Blood Gas Sample Type Arterial; Blood Gas Tidal Volume 0.45; HCO3 ABG 26.8 mmol/L (22-26); Oxygen Device VENT
[2021-05-11] MEDS: FUROsemide 20 mg Tablet PO (05:22)
[2021-05-11] MEDS: enoxaparin 40 mg/0.4 mL Syringe SUBCUT (05:22)
[2021-05-11 05:26] LABS: Basophils % 0.3 %; Eosinophils % 0.1 %; Hematocrit 33.4 % (37.0-47.0); Hemoglobin 10.8 g/dL (11.5-15.3); Lymphocytes # 0.8 10^3/uL (0.8-4.8); Lymphocytes % 7.8 %; Mean Corpuscular HGB Conc 32.3 g/dL (30.0-36.0); Mean Corpuscular Hemoglobin 29.7 pg (28.0-34.0); Mean Corpuscular Volume 91.8 fl (81-99); Mean Platelet Volume 9.3 fL (7.4-10.4); Monocytes # 0.7 10^3/uL (0.2-0.9); Monocytes % 7.2 %; Neutrophils # 8.09 10^3/uL (1.8-7.7); Nucleated Red Blood Cells % 0 %; Platelet Count 449 10^3/cmm (130-400); Red Blood Count 3.64 10^6/uL (4.1-5.3); Red Cell Distribution Width 12.3 % (12.1-15.1); White Blood Count 10.2 10^3/uL (4.0-10.0)
[2021-05-11 05:41] LABS: Ammonia 31 umol/L (11-51); Lactate (Lactic Acid level) 0.8 mmol/L (0.5-2.2)
[2021-05-11 05:53] LABS: D Dimer 0.43 ug/mIFEU (0-0.59)
[2021-05-11 05:59] LABS: NT Pro B Type Natriuretic Pept 203 pg/mL (0-125)
[2021-05-11 06:10] LABS: Alanine Aminotransferase 10 U/L (0-33); Albumin Level 3.3 g/dL (3.5-5.2); Alkaline Phosphatase 132 IU/L (35-105); Anion Gap 15.5 (5-19); Aspartate Amino Transferase 10 U/L (0-32); Blood Urea Nitrogen 11 mg/dL (6-20); C Reactive Protein 121.2 mg/L (0.0-4.9); Calcium 9.4 mg/dL (8.5-10.5); Carbon Dioxide 24 mmol/L (22-29); Chloride 101 mmol/L (98-107); Creatine Phosphokinase 13 U/L (26-192); Globulin 3.6 g/dL (1.3-4.6); Glomerular Filtration Rate 227.7 mL/min (90-130); Glucose 120 mg/dL (65-115); Magnesium 1.8 mg/dL (1.7-2.3); Osmolality Calculated 285 mOsm/kg (285-295); Phosphorus 2.4 mg/dL (2.5-4.5); Potassium 3.5 mmol/L (3.5-5.1); Sodium 137 mmol/L (136-145); Total Bilirubin 0.2 mg/dL (0.15-1.2); Total Protein 6.9 g/dL (6.6-8.7)
--- NOTE | 2021-05-11 07:44 | XRR_ITS ---
PROCEDURE INFORMATION: Exam: XR Chest Exam date and time: 05/11/2021 7:44 AM Age: 61 years old Clinical indication: Condition or disease; Lung condition and disease; Pneumonia; Viral TECHNIQUE: Imaging protocol: XR of the chest. Views: 1 view. COMPARISON: CR (CHEST, ) 05/10/2021 6:06 AM FINDINGS: Tubes, catheters and devices: Right IJ central line tip at the cavoatrial junction. Endotracheal tube tip at the parag, directed toward the right mainstem bronchus. Recommend retracting 3-4 cm. Enteric tube extends off the inferior margin of the radiograph, reaching at least the proximal gastric body. Lungs: There are again diffuse reticular interstitial opacities with some interval slight clearing of the left mid lung. No new consolidation is appreciated. Pleural spaces: Small right pleural effusion suspected. No visible pneumothorax. Heart/Mediastinum: Unremarkable. No cardiomegaly. Bones/joints: Chronic changes of the right humeral head. Old left rib fractures. XR/XR chest 1V portable [id number] IMPRESSION: 1. Endotracheal tube directed toward the right mainstem bronchus. Recommend retracting 3-4 cm. 2. Similar appearance of diffuse interstitial opacities with some slight clearing of the left mid lung. No new consolidation appreciated. 3. Small right pleural effusion suspected. Radiation Dose CTDIVOL = (mGy): DLP = (mGy-cm)
[2021-05-11 08:10] LABS: Neutrophils % 84.6 %; Slide Review Slide Review Perform
[2021-05-11] MEDS: budesonide 0.5 mg/2 mL Neb INHALATION ×2 (08:20→19:50)
[2021-05-11] MEDS: buPROPion SR (12 HR) 150 mg Tablet PO ×2 (08:25→21:44)
[2021-05-11] MEDS: fluoxetine 20 mg Capsule 80 MG PO (08:25)
[2021-05-11] MEDS: lamoTRIgine 100 mg Tablet 150 MG PO (08:25)
[2021-05-11] MEDS: pantoprazole DR 40 mg Tablet PO (08:25)
--- NOTE | 2021-05-11 09:25 | PM.PN ---
Subjective Subjective: Interval history: Intubated, sedated, paralyzed. Vitals/I&O/Wt Last Vital Signs Temp 98.3 F 05/11/21 07:44 Pulse 64 05/11/21 08:26 Resp 16 05/11/21 08:22 BP 153/85 05/11/21 07:44 Pulse Ox 97 05/11/21 08:22 05/10/21 05/11/21 05/11/21 22:59 06:59 14:59 Intake Total 1500.785 / 2320.017 986.600 / 3306.617 Output Total 1800 / 3200 800 / 4000 Balance -299.215 / -879.983 186.600 / -693.383 Weight last 48 hrs Weight 112.491 kg Physical Exam Const: GENERAL APPEARANCE: patient mechanically ventilated OTHER: Intubated, sedated, paralyzed. HENMT: COMMON NORMALS: oropharynx normal Neck/C-Spine: COMMON NORMALS: no JVD Resp: AUSCULTATION: rhonchi, wheezes and diminished lung sounds Cardio: COMMON NORMALS: no JVD, regular rhythm, S1 normal heart sound present, S2 normal heart sound present and No murmurs present (Cardio) RHYTHM: regular rhythm HEART SOUNDS: S1 normal heart sound present and S2 normal heart sound present GI: COMMON NORMALS: Normal to inspection, nondistended, normoactive bowel sounds present and Soft to palpation PALPATION: Yes Soft to palpation Extremity: COMMON NORMALS: no joint enlargement and no pedal edema OTHER: Right BKA Skin: COMMON NORMALS: no rashes or lesions noted GENERAL SKIN EXAM: no rashes or lesions noted Urinary Catheter Management^: 2-way Urethral: Cath Placed During This Visit: yes Reason for Continuing Indwelling Catheter: Accurate Measurement of Urinary Output in Critically Ill Patients Urinary Catheter Date of Insertion: 05/09/21 Urinary Catheter Time of Insertion: 05:30 Data : 05/11/21 04:29 05/11/21 04:29 Micro: Microbiology 05/09/21 17:20 Gram Stain - Final Sputum - Endotracheal Tube Aspirate Sputum Culture - Preliminary A&P Assessment and plan (1) Respiratory failure with hypoxia: With some gradual improvement. FiO2 requirement gradually decreasing, down to 45% today. Wheezing, rhonchi on exam, diminished air entry. Continue mechanical ventilatory support. Sedation, paralytic. Continue empiric antibiotic coverage with Levaquin, Primaxin, vancomycin. Follow-up respiratory cultures. Rare gram-positive cocci in pairs chains and clusters, rare gram-negative rods on Gram stain. Pending culture. Pending fungal, mycobacterial studies. Breathing treatments. Inhaled steroid. Status: Acute Qualifiers: Chronicity: acute Qualified Code(s): J96.01 - Acute respiratory failure with hypoxia (2) Pneumonia: Secondary to postobstructive pneumonia, possible aspiration pneumonitis, superimposed on interstitial lung disease, emphysema Intubated 05/09/2021 Status post bronchoscopy, removal of foreign body right middle lobe Follow galactomannan, beta D glucan, PCP, fungal, mycobacterial studies. Status: Acute Qualifiers: Laterality: bilateral Lung location: unspecified part of lung Pneumonia type: due to unspecified organism Qualified Code(s): J18.9 - Pneumonia, unspecified organism (3) COPD exacerbation: Continue budesonide. Nebs. Antibiotics. Status: Acute (4) Acute encephalopathy: Elevated risk of delirium. On a number of psychiatric medications. With possible substance use disorder, this is positive for amphetamine. Status: Acute (5) Interstitial lung disease: Status: Acute Additional A&P Information Cardiac echocardiogram, left ventricular appears to be dilated, diastolic function is normal,, moderate pulmonary pretension, Hep C positive Right central line in place Attestations Medical Necessity Statement*: Continue admission for assessment management of hypoxic respite failure secondary to postobstructive pneumonia, aspiration pneumonitis, foreign body removal, with underlying ILD, COPD/emphysema. Coding Level of Care Code Acute [facility] Diagnoses Respiratory failure with hypoxia J96.01 Chronicity: acute Pneumonia J18.9 Laterality: bilateral Lung location: unspecified part of lung Pneumonia type: due to unspecified organism COPD exacerbation J44.1 Acute encephalopathy G93.40 Interstitial lung disease J84.9
--- NOTE | 2021-05-11 09:44 | P.PN_ITS ---
Subjective Subjective: Interval history: - Patient seen at bedside today morning -Currently saturating 99% on 45% FiO2 on ventilator -Still sedated and paralyzed; -Today plan is to taper off paralytic and sedation and do awakening trial -Labs and imaging reviewed Medications: Reviewed: Yes Vitals/I&O/Wt Last Vital Signs Temp 98.3 F 05/11/21 07:44 Pulse 64 05/11/21 08:26 Resp 16 05/11/21 08:22 BP 153/85 05/11/21 07:44 Pulse Ox 97 05/11/21 08:22 05/10/21 05/11/21 05/11/21 22:59 06:59 14:59 Intake Total 1500.785 / 2320.017 986.600 / 3306.617 18.088 / 18.088 Output Total 1800 / 3200 800 / 4000 Balance -299.215 / -879.983 186.600 / -693.383 18.088 / 18.088 Weight last 48 hrs Weight 248 lb Physical Exam Narrative: EXAM NARRATIVE: General: lying in bed, sedated and intubated. HEENT:NCAT, PERRLA, EOMI Neck: Supple Lungs: Bilateral air entry present with diffuse coarse rhonchi Heart: s1/s2, RRR Abd: soft, NT, ND, BS + Normoactive Extremities: No edema; right BKA amputated CHILDREN'S MINISTRY DIRECTOR: sedated and limited CHILDREN'S MINISTRY DIRECTOR exam possible. SKIN: no rash LDA: # CVC: Right internal jugular central line 05/09/2021 # [place]: 05/09/2021 Urinary Catheter Management^: 2-way Urethral: Cath Placed During This Visit: yes Reason for Continuing Indwelling Catheter: Accurate Measurement of Urinary Output in Critically Ill Patients Urinary Catheter Date of Insertion: 05/09/21 Urinary Catheter Time of Insertion: 05:30 Data : 05/11/21 04:29 05/11/21 04:29 Other Labs: Laboratory Results WBC 10.2 10^3/uL (4.0-10.0) H 05/11/21 04:29 RBC 3.64 10^6/uL (4.1-5.3) L 05/11/21 04:29 Hgb 10.8 g/dL (11.5-15.3) L 05/11/21 04:29 Hct 33.4 % (37.0-47.0) L 05/11/21 04:29 MCV 91.8 fl (81-99) 05/11/21 04:29 MCH 29.7 pg (28.0-34.0) 05/11/21 04:29 MCHC 32.3 g/dL (30.0-36.0) 05/11/21 04:29 RDW 12.3 % (12.1-15.1) 05/11/21 04:29 Plt Count 449 10^3/cmm (130-400) H D 05/11/21 04:29 MPV 9.3 fL (7.4-10.4) 05/11/21 04:29 Neut % (Auto) 84.6 % 05/11/21 04:29 Lymph % (Auto) 7.8 % 05/11/21 04:29 [place] % (Auto) 7.2 % 05/11/21 04:29 Eos % (Auto) 0.1 % 05/11/21 04:29 Baso % (Auto) 0.3 % 05/11/21 04:29 Neut # (Auto) 8.09 10^3/uL (1.8-7.7) H 05/11/21 04:29 Lymph # (Auto) 0.8 10^3/uL (0.8-4.8) 05/11/21 04:29 [place] # (Auto) 0.7 10^3/uL (0.2-0.9) 05/11/21 04:29 Eos # (Auto) 0.0 10^3/uL (0.0-0.8) 05/11/21 04:29 Baso # (Auto) 0.0 10^3/uL (0.0-0.1) 05/11/21 04:29 Nucleated RBC % (auto) 0 % 05/11/21 04:29 Nucleated RBCs # 0.0 /100WBC 05/11/21 04:29 PT 14.50 SECONDS (12.1-14.9) 05/11/21 04:29 INR 1.10 (0.8-1.2) 05/11/21 04:29 APTT 35.7 SECONDS (23.9-36.7) 05/07/21 00:15 Fibrinogen 562 mg/dL (174-498) H 05/07/21 00:15 D-Dimer 0.43 ug/mIFEU (0-0.59) 05/11/21 04:29 Specimen Type Arterial 05/11/21 04:00 Sample Site Radial, left 05/11/21 04:00 ABG pH 7.39 (7.35-7.45) 05/11/21 04:00 ABG pCO2 44.1 mmHg (35-45) 05/11/21 04:00 ABG pO2 85.0 mmHg (80.0-100.0) 05/11/21 04:00 ABG HCO3 26.8 mmol/L (22-26) H 05/11/21 04:00 ABG O2 Saturation 95.3 05/09/21 16:01 ABG Base Excess 1.6 mmol/L (-2.0-2.0) 05/11/21 04:00 Darryl Test Pos 05/11/21 04:00 A-a O2 Gradient 71.9 mmHg (5-10) H 05/09/21 16:01 Hematocrit 36.0 % (37-47) L 05/11/21 04:00 Hgb O2 Saturation 93.5 % (95-100) L 05/09/21 16:01 Carboxyhemoglobin 1.4 %THgb (0.4-20.1) 05/09/21 16:01 Methemoglobin 0.4 % (0.4-1.5) 05/09/21 16:01 Total Hemoglobin 11.0 g/dL (12-16) L 05/09/21 16:01 Sodium 138.0 mmol/L (131-143) 05/09/21 16:01 Potassium 4.3 mmol/L (3.5-5.0) 05/09/21 16:01 Glucose 186.0 mg/dL (70-115) H 05/09/21 16:01 Ionized Calcium 1.3 mmol/L (1.1-1.4) 05/09/21 16:01 O2 Delivery Device Vent 05/11/21 04:00 O2 Liters/Min 50.0 % 05/09/21 04:45 FiO2 45.0 % 05/11/21 04:00 Tidal Volume 0.45 05/11/21 04:00 PEEP 10.0 cmH20 05/11/21 04:00 Head Buyer Tobacco ID [email or web address] 05/11/21 04:00 Sodium 137 mmol/L (136-145) 05/11/21 04:29 Potassium 3.5 mmol/L (3.5-5.1) 05/11/21 04:29 Chloride 101 mmol/L (98-107) 05/11/21 04:29 Carbon Dioxide 24 mmol/L (22-29) 05/11/21 04:29 Anion Gap 15.5 (5-19) 05/11/21 04:29 BUN 11 mg/dL (6-20) 05/11/21 04:29 Creatinine 0.3 mg/dL (0.5-0.9) L 05/11/21 04:29 GFR Calculation 227.7 mL/min (90-130) H 05/11/21 04:29 Glucose 120 mg/dL (65-115) H 05/11/21 04:29 Calculated Osmolality 285 mOsm/kg (285-295) 05/11/21 04:29 Lactate 0.8 mmol/L (0.5-2.2) 05/11/21 04:29 Calcium 9.4 mg/dL (8.5-10.5) 05/11/21 04:29 Phosphorus 2.4 mg/dL (2.5-4.5) L 05/11/21 04:29 Magnesium 1.8 mg/dL (1.7-2.3) 05/11/21 04:29 Ferritin 277 ng/mL (15-150) H 05/07/21 00:15 Total Bilirubin 0.2 mg/dL (0.15-1.2) 05/11/21 04:29 AST 10 U/L (0-32) 05/11/21 04:29 ALT 10 U/L (0-33) 05/11/21 04:29 Alkaline Phosphatase 132 IU/L (35-105) H 05/11/21 04:29 Ammonia 31 umol/L (11-51) 05/11/21 04:29 Lactate Dehydrogenase 516 U/L (135-214) H 05/08/21 20:01 Creatine Kinase 13 U/L (26-192) L 05/11/21 04:29 Troponin T Gen 5 ng/L Cancelled 05/07/21 00:15 Troponin T Baseline 8 ng/L (0-10) 05/07/21 00:15 C-Reactive Protein 121.2 mg/L (0.0-4.9) H 05/11/21 04:29 NT-Pro-B Natriuret Pep 203 pg/mL (0-125) H 05/11/21 04:29 Total Protein 6.9 g/dL (6.6-8.7) 05/11/21 04:29 Albumin 3.3 g/dL (3.5-5.2) L 05/11/21 04:29 Globulin 3.6 g/dL (1.3-4.6) 05/11/21 04:29 Procalcitonin 0.20 ng/mL (0-0.5) 05/11/21 04:29 Vancomycin Trough 14.9 ug/mL (10-15) 05/09/21 09:50 Urine Opiates Screen Negative ng/mL (Negative) 05/07/21 04:24 Ur Barbiturates Screen Negative ng/mL (Negative) 05/07/21 04:24 Ur Phencyclidine Scrn Negative ng/mL (Negative) 05/07/21 04:24 Ur Amphetamines Screen Positive ng/mL (Negative) H 05/07/21 04:24 U Benzodiazepines Scrn Negative ng/mL (Negative) 05/07/21 04:24 Urine Cocaine Screen Negative ng/mL (Negative) 05/07/21 04:24 U Marijuana (THC) Screen Negative ng/mL (Negative) 05/07/21 04:24 RPR Nonreactive (Nonreactive) 05/08/21 20:01 Nasal/Oral COVID-19 PCR Not detected 05/08/21 18:30 Hepatitis A IgM Ab Non-reactive (Nonreactive) 05/07/21 00:15 Hep Bs Antigen Non-reactive (Nonreactive) 05/07/21 00:15 Hep B Core IgM Ab Non-reactive (Nonreactive) 05/07/21 00:15 Hepatitis C Antibody Reactive (Nonreactive) H 05/07/21 00:15 HIV 1&2 Ab & HIV 1 Ag Non-reactive (Non-Reactiv) 05/08/21 20:01 HIV 1&2 Antibody Non-reactive (Non-Reactiv) 05/08/21 20:01 Influenza Type A Ag Negative (Negative) 05/08/21 18:30 Influenza Type B Ag Negative (Negative) 05/08/21 18:30 SARS-CoV-2 Ag (Rapid) Negative (Negative) 05/07/21 00:16 Impressions Chest CTA 05/07/21 01:27 IMPRESSION: 1. Hazy bilateral pulmonary opacities, with consolidation in the left lower lobe. Findings may represent community-acquired pneumonia versus COVID-19.. 2. Evaluation of pulmonary arteries is somewhat limited secondary to respiratory motion. 3. No pulmonary embolism. 4. Atherosclerotic disease of the coronary arteries. 5. No aortic dissection. Radiation Dose CTDIVOL = (mGy): DLP = 875.21 (mGy-cm) Venous Duplex 05/10/21 09:00 IMPRESSION: No evidence of deep vein thrombosis. Radiation Dose CTDIVOL = (mGy): DLP = (mGy-cm) Micro: Microbiology 05/09/21 17:20 Gram Stain - Final Sputum - Endotracheal Tube Aspirate Sputum Culture - Preliminary A&P Assessment and plan (1) Respiratory failure with hypoxia: Status: Acute Qualifiers: Chronicity: acute Qualified Code(s): J96.01 - Acute respiratory failure with hypoxia (2) ARDS (adult respiratory distress syndrome): Status: Acute (3) Acute encephalopathy: Status: Acute (4) Pneumonia: Status: Acute Qualifiers: Laterality: bilateral Lung location: unspecified part of lung Pneu monia type: due to unspecified organism Qualified Code(s): J18.9 - Pneumonia, unspecified organism (5) COPD exacerbation: Status: Acute (6) PVD (peripheral vascular disease) with claudication: Status: Acute (7) GERD (gastroesophageal reflux disease): Status: Acute Qualifiers: Esophagitis presence: without esophagitis Qualified Code(s): K21.9 - Gastro-esophageal reflux disease without esophagitis (8) Anxiety: Status: Acute (9) Nicotine dependence, cigarettes, with other nicotine-induced disorders: Status: Acute (10) Aspiration of foreign body in respiratory tract: Status: Acute Qualifiers: Encounter type: initial encounter Qualified Code(s): T17.908A - Unspecified foreign body in respiratory tract, part unspecified causing other injury, initial encounter (11) Amphetamine addiction: Status: Acute (12) Interstitial lung disease: Status: Acute (13) Pulmonary hypertension: Status: Acute #Altered mental status-drug withdrawal/hypoxia/psychiatric #Hypoxic respiratory failure secondary to ARDS-secondary to pneumonia/fluid overload secondary to amphetamine abuse #Aspiration of foreign body-possible cause of postobstructive pneumonia #COPD exacerbation in patient with nicotine dependence #Moderate pulmonary hypertension with RVSP 45 to 50 mmHg and mild TR on echo.LV dilated. #Significant psychiatric history, schizoaffective disorder, bipolar, drug abuse #History of GERD #History of PVD with claudication -Intubated 05/09/2021 and connected to mechanical ventilator currently on CMV mode -Sedated with fentanyl, propofol, Versed and paralyzed-yesterday she had one proning session -Today ABG 7.3 //26 on CMV 450/16/10/45 % -CT chest revealed hazy bilateral pulmonary opacities, with consolidation in the left lower lobe. Findings may represent community-acquired pneumonia versus COVID-19. Evaluation of pulmonary arteries is somewhat limited secondary to respiratory motion. No pulmonary embolism. -S/p bronchoscopy 05/09/2021 revealed a foreign body in RML-later retrieved with therapeutic bronchoscope 10 mm x 5 mm popcorn kernel -BAL for galactomannan, beta D glucan, PCP, microbiology cultures, pending -Currently on vancomycin/imipenem/levofloxacin for CAP/atypical pneumonia -Covid PCR x2 --we will discontinue dexamethasone; started on IV Solu-Medrol 40 every 8 for COPD exacerbation and will gradually taper down based on clinical response -Continue DuoNeb every 4 scheduled nebulization and Pulmicort 0.5 mg twice daily. -Patient also receiving Seroquel 600 p.o. at bedtime, fluoxetine 80 mg p.o. daily, BuSpar 10 mg every 12 hours -I/O - 700cc over last 24 hours-Lasix 20 mg -monitor I&O to keep net even - BNP 1057; Echo 05/09/2021 LV dilated cannot rule out wall motion abnormalities. Moderate pulmonary hypertension with normal RV size and function. RVSP 45 to 50 mmHg and mild TR -U tox positive for amphetamines -Sugars moderately controlled -Started tube feeds @15 mL/h, and bowel regimen senna -GI prophylaxis Protonix -DVT prophylaxis Lovenox -Prognosis guarded -Recently lost her daughter for fentanyl overdose, another daughter lives in [place] Recommendations conveyed to hospitalist, RN, RT aking care of the patient We will taper off paralytic and sedation and awakening trial, start feeding ; Attestations Medical Necessity Statement*: AMS and acute hypoxic respiratory failure secondary to ARDS due to pneumonia/fluid overload due to amphetamine use Time Spent in Patient Care: Greater than 35 minutes (>than 50% of time spent in counselling and/or direct pt care on unit) . Critical Care Time: The high probability of a clinically significant, sudden or life threatening deterioration of the patient's [neurological, pulmonary, cardiac] system(s) required my full and direct attention, intervention and personal management. The critical care time is as shown. This time is in add ition to time spent performing any reported procedures but includes the following: [x] Data and vital sign review and interpretation [x] Patient assessment, examination and intervention [x] Documentation [x] Medication orders and management Critical Care Time (min): 55 Coding Level of Care Code Established Pt Acute Community Health Educator for Chg Fwd Patient Type Established Medical Decision Making High Complexity Diagnoses Respiratory failure with hypoxia J96.01 Chronicity: acute ARDS (adult respiratory distress syndrome) J80 Acute encephalopathy G93.40 Pneumonia J18.9 Laterality: bilateral Lung location: unspecified part of lung Pneumonia type: due to unspecified organism COPD exacerbation J44.1 PVD (peripheral vascular disease) with claudication I73.9 GERD (gastroesophageal reflux disease) K21.9 Esophagitis presence: without esophagitis Anxiety F41.9 Nicotine dependence, cigarettes, with other nicotine-induced disorders F17.218 Aspiration of foreign body in respiratory tract T17.908A Encounter type: initial encounter Amphetamine addiction F15.20 Interstitial lung disease J84.9 Pulmonary hypertension I27.20 Time Spent (min) 55
--- NOTE | 2021-05-11 10:16 | ECG_ITS ---
[facility] Test Date: 2021-05-11 Pat Name: Dalila Samuels Department: Room: [facility] Gender: Female She[place] Boner: : 1960 Requested By: Contreras Oliveros Order Number: [id number] Danae MD: Abhishek Perkins M.D. Measurements Intervals [place] Rate: 67 P: 74 AK: 170 QRS: 36 QRSD: 109 T: 33 QT: 423 QTc: 449 Interpretive Statements SINUS RHYTHM WITH MARKED SINUS ARRHYTHMIA Compared to ECG 05/07/2021 00:41:04 No significant changes Electronically Signed On 05-11-2021 23:23:41 CDT by Abhishek Perkins M.D. [id number]
[2021-05-11 11:32] LABS: Troponin(5th) Baseline 6 ng/L (0-10)
--- NOTE | 2021-05-11 12:14 | XRR_ITS ---
PROCEDURE INFORMATION: Exam: XR Chest Exam date and time: 05/11/2021 12:14 PM Age: 61 years old Clinical indication: Device placement; Other: Et and ng adjustment; Additional info: Et tube adjustment TECHNIQUE: Imaging protocol: XR of the chest. Views: 1 view. COMPARISON: CR (CHEST, ) 05/11/2021 8:53 AM FINDINGS: Tubes, catheters and devices: The endotracheal tube is been retracted, tip now 2.5 cm cephalad to the parag. No apparent interval change in position of right IJ line with tip near the cavoatrial junction or enteric tube with tip extending off the inferior margin of the radiograph. Lungs: Unchanged diffuse increased interstitial markings with no focal consolidation appreciated. Pleural spaces: No obvious pleural effusion or pneumothorax. Heart/Mediastinum: Unremarkable. No cardiomegaly. Bones/joints: Unremarkable. XR/XR chest 1V portable [id number] IMPRESSION: 1. Endotracheal tube tip now position 2.5 cm cephalad to the parag in satisfactory position. 2. No other significant interval change. Radiation Dose CTDIVOL = (mGy): DLP = (mGy-cm)
[2021-05-11 13:54] LABS: Troponin 5 2HR Delta 0 ABS# (0-10)
[2021-05-11] MEDS: levofloxacin-dextrose 5 % 750 MG/150 ML PREMIX 150 MG IV (17:06)
[2021-05-11 17:11] LABS: Anion Gap 15.7 (5-19); Blood Urea Nitrogen 10 mg/dL (6-20); Calcium 9.5 mg/dL (8.5-10.5); Carbon Dioxide 25 mmol/L (22-29); Chloride 101 mmol/L (98-107); Glomerular Filtration Rate 163.4 mL/min (90-130); Glucose 196 mg/dL (65-115); Magnesium 1.8 mg/dL (1.7-2.3); Osmolality Calculated 290 mOsm/kg (285-295); Potassium 3.7 mmol/L (3.5-5.1); Sodium 138 mmol/L (136-145); Troponin 5 6HR Delta 0 ng/L (0-12)
[2021-05-11 18:43] LABS: Vancomycin Trough 13.4 ug/mL (10-15)
--- NOTE | 2021-05-11 19:01 | PC.NURSE ---
Shift Note Frequent safety and comfort rounds continue. Orders and/or nursing care completed as indicated. Patient monitored for response to intervention and treatment(s). Education provided includes vent weaning. Patient and/or human resources hr representative verbalized understanding]. Will continue to monitor.
--- NOTE | 2021-05-11 20:56 | PC.NURSE ---
Temperature Patient's room temperature turned up and warm blankets applied to patient.
[2021-05-11] MEDS: sennosides 8.6 mg Tablet PO (21:44)
[2021-05-11] MEDS: quetiapine 300 mg Tablet 600 MG PO (21:44)
[2021-05-12] VITALS (62 sets, daily range): BP systolic 95–155; BP diastolic 54–85; PULSE 74–194; RESP 18; TEMP 36.7–37.2; O2SAT 86–99; BMI 37.4
[2021-05-12] MEDS: propofol 1,000 MG/100 ML INJ 37.42 MG IV ×2 (01:54→05:12)
[2021-05-12] MEDS: BuSPIRONE 10 mg Tablet PO ×2 (02:04→13:25)
[2021-05-12] MEDS: ipratropium-albuterol 3 mL Neb INHALATION ×7 (03:10→23:13)
[2021-05-12] MEDS: vancomycin 1,250 MG/250 ML PIGGYBACK 250 MG IV ×3 (03:51→19:30)
[2021-05-12 04:46] LABS: Basophils # 0.1 10^3/uL (0.0-0.1); Basophils % 0.8 %; Hematocrit 34.9 % (37.0-47.0); Hemoglobin 10.9 g/dL (11.5-15.3); Lymphocytes # 0.9 10^3/uL (0.8-4.8); Lymphocytes % 8.1 %; Mean Corpuscular HGB Conc 31.2 g/dL (30.0-36.0); Mean Corpuscular Hemoglobin 29.4 pg (28.0-34.0); Mean Corpuscular Volume 94.1 fl (81-99); Mean Platelet Volume 9.2 fL (7.4-10.4); Monocytes # 0.8 10^3/uL (0.2-0.9); Monocytes % 7.3 %; Neutrophils # 8.27 10^3/uL (1.8-7.7); Neutrophils % 75.9 %; Nucleated Red Blood Cells % 0.2 %; Platelet Count 469 10^3/cmm (130-400); Red Blood Count 3.71 10^6/uL (4.1-5.3); White Blood Count 10.9 10^3/uL (4.0-10.0)
[2021-05-12 05:02] LABS: ABG PCO2 47.4 mmHg (35-45); Arterial Blood Gas Hematocrit 34.1 % (37-47); Base Excess ABG 3.9 mmol/L (-2.0-2.0); Blood Gas Allen Test Pos; Blood Gas Operator Identificat JB; Blood Gas Sample Site Radial, right; Blood Gas Sample Type Arterial; HCO3 ABG 29.4 mmol/L (22-26); Oxygen Device VENT
[2021-05-12 05:03] LABS: INR 1.14 (0.8-1.2)
[2021-05-12 05:03] LABS: Blood Gas Tidal Volume 0.45
[2021-05-12 05:06] LABS: D Dimer 0.55 ug/mIFEU (0-0.59)
[2021-05-12 05:08] LABS: Ammonia 52 umol/L (11-51); Lactate (Lactic Acid level) 1.4 mmol/L (0.5-2.2)
[2021-05-12 05:15] LABS: Alanine Aminotransferase 9 U/L (0-33); Albumin Level 3.2 g/dL (3.5-5.2); Alkaline Phosphatase 118 IU/L (35-105); Anion Gap 14.2 (5-19); Aspartate Amino Transferase 10 U/L (0-32); Blood Urea Nitrogen 13 mg/dL (6-20); C Reactive Protein 65.8 mg/L (0.0-4.9); Calcium 9.2 mg/dL (8.5-10.5); Carbon Dioxide 27 mmol/L (22-29); Chloride 103 mmol/L (98-107); Globulin 3.5 g/dL (1.3-4.6); Glomerular Filtration Rate 163.4 mL/min (90-130); Glucose 140 mg/dL (65-115); Magnesium 2.1 mg/dL (1.7-2.3); Osmolality Calculated 292 mOsm/kg (285-295); Potassium 4.2 mmol/L (3.5-5.1); Sodium 140 mmol/L (136-145); Total Bilirubin 0.2 mg/dL (0.15-1.2); Total Protein 6.7 g/dL (6.6-8.7)
[2021-05-12 05:24] LABS: NT Pro B Type Natriuretic Pept 153 pg/mL (0-125); Procalcitonin 0.15 ng/mL (0-0.5)
[2021-05-12 05:31] LABS: Slide Review Slide Review Perform
[2021-05-12 05:35] LABS: Creatine Phosphokinase 40 U/L (26-192)
[2021-05-12] MEDS: enoxaparin 40 mg/0.4 mL Syringe SUBCUT (05:38)
[2021-05-12] MEDS: FUROsemide 20 mg Tablet PO (05:38)
[2021-05-12] MEDS: cisatracurium 100 MG in sodium chloride 0.9% 50 ML IV (05:48)
--- NOTE | 2021-05-12 06:48 | PC.NURSE ---
BIS/TOF Time BIS TOF 2000 46 4 2200 44 4 0000 47 4 0200 35 4 0400 42 4 0600 49 4
--- NOTE | 2021-05-12 06:50 | PC.NURSE ---
Shift Note Frequent safety and comfort rounds continue. Orders and/or nursing care completed as indicated. Patient monitored for response to intervention and treatment(s). Education provided includes medication information about lovenox, SCD use, and hygiene measuers taken. Patient remains to be intubated/sedated/paralyzed and will need further education. See previous nurse's note for BIS monitoring/TOF. Will continue to monitor.
[2021-05-12] MEDS: propofol 1,000 MG/100 ML INJ 34.02 MG IV ×5 (08:20→21:09)
[2021-05-12] MEDS: lactulose oral liq 20 gm/30 mL UDC 10 GM PO ×2 (08:22→19:31)
[2021-05-12] MEDS: fluoxetine 20 mg Capsule 80 MG PO (08:22)
[2021-05-12] MEDS: lamoTRIgine 100 mg Tablet 150 MG PO (08:22)
[2021-05-12] MEDS: pantoprazole DR 40 mg Tablet PO (08:23)
[2021-05-12] MEDS: buPROPion SR (12 HR) 150 mg Tablet PO ×2 (08:23→20:13)
[2021-05-12] MEDS: budesonide 0.5 mg/2 mL Neb INHALATION ×2 (08:34→20:06)
--- NOTE | 2021-05-12 09:48 | PC.CHAP ---
Pastoral Care Encounter/Spiritual Assessment Type of Contact [] Declined delinquency prevention officer visit [] Patient/Family/Request visit [] Outpatient visit [] Follow-up visit [] Physician referral [] Code/Alert [x Routine visit [] Staff referral [] Actively dying [x] Patient sleeping [] Family support [] [] Out of room [] Palliative care [] [] Receiving care in room [] Pre-surgical visit [] Trauma [] Long length of stay [x] ICU visit [x] Other: vent Relational/Emotional Strength [] Patient feels connected with others/family/visitors/staff [] Distress [] Loneliness/isolation [] Abandonment Spirituality of Patient [] Person of Love [] Attends Buddhism of their Love [] Believes in Prayer [] Reads Bible or Sabianism materials [] There are Spiritual issues to be addressed Hot Pond Operator Interventions [x] Prayer [] Active listening [] Non-anxious presence [] Spiritual/emotional support [] Crisis/trauma care [] Spiritual counseling [] Bereavement support [] Provided bereavement packet [] Provided Bible/devotional materials [] Provided toy/stuffed animal, coloring book to patient or family member [] Provided Communion [] Anointing/[place] [] Salvation [x] Completed spiritual assessment [] Other: Impact on Illness or Injury [] Angry [] Fearful [] Anxious [] Often cries [] Exhaustion [] Unable to work [] Unable to attend voodoo [] Unable to walk/stand [] Unable to read [] Unable to drive [] Unable to eat/drink [] Unable to sleep [] Unable to be with family [] Patient intubated [] Other: Summary Time spent with patient
--- NOTE | 2021-05-12 10:56 | PC.NURSE ---
Prone at 1100. No complications.
--- NOTE | 2021-05-12 12:04 | PC.NURSE ---
Attempt to call daughter Laurie for family rounding. No answer. Left voicemail.
--- NOTE | 2021-05-12 13:02 | PC.NUTR ---
Current TF of Jevity 1.2@ 15 ml will provide 432 kcals + 898 kcals from Propofol, 19 grams prot, 290 ml H2O. Total 1330 kcals will provide 75% of est. kcal needs and 20% est prot needs. If medically appropriate, recommend increasing current TF of Jevity 1.2@15 ml/hr 10 ml Q8H, as tolerated, to new goal rate of Jevity 1.2@ 25 ml/hr with H2O flushes per MD discretion. Jevity 1.2@ 25 mls/hr will proved 720 kcals + 898 kcals from Propofol, 33 grams protein and 484 ml H2O - Total kcals will provide 91% est kcal needs and 35% est protein needs. See full RD assessment for further details.
[2021-05-12] MEDS: cisatracurium 100 MG in sodium chloride 0.9% 50 ML 6.8 MG IV (15:09)
--- NOTE | 2021-05-12 15:21 | P.PN_ITS ---
Subjective Subjective: Interval history: Intubated, sedated, paralyzed. Vitals/I&O/Wt Last Vital Signs Temp 98.9 F 05/12/21 13:30 Pulse 100 05/12/21 14:30 Resp 18 05/12/21 14:30 BP 141/69 05/12/21 14:30 Pulse Ox 98 05/12/21 14:30 05/12/21 05/12/21 05/12/21 06:59 14:59 22:59 Intake Total 1071.303 / 3098.336 760.220 / 760.220 33.207 / 793.427 Output Total 775 / 4475 Balance 296.303 / -1376.664 760.220 / 760.220 33.207 / 793.427 Weight last 48 hrs Weight 105.233 kg Physical Exam Const: GENERAL APPEARANCE: patient mechanically ventilated OTHER: Intubated, sedated, paralyzed. HENMT: COMMON NORMALS: oropharynx normal Neck/C-Spine: COMMON NORMALS: no JVD Resp: AUSCULTATION: diminished lung sounds Cardio: COMMON NORMALS: no JVD, regular rhythm, S1 normal heart sound present, S2 normal heart sound present and No murmurs present (Cardio) RHYTHM: regular rhythm HEART SOUNDS: S1 normal heart sound present and S2 normal heart sound present GI: COMMON NORMALS: Normal to inspection, nondistended, normoactive bowel sounds present and Soft to palpation PALPATION: Yes Soft to palpation Extremity: COMMON NORMALS: no joint enlargement and no pedal edema OTHER: Right BKA Neuro: COMMON NORMALS: moves all extremities Skin: COMMON NORMALS: no rashes or lesions noted GENERAL SKIN EXAM: no rashes or lesions noted Urinary Catheter Management^: 2-way Urethral: Cath Placed During This Visit: yes Reason for Continuing Indwelling Catheter: Accurate Measurement of Urinary Output in Critically Ill Patients Urinary Catheter Date of Insertion: 05/09/21 Urinary Catheter Time of Insertion: 05:30 Data : 05/12/21 03:30 05/12/21 03:30 Micro: Microbiology 05/09/21 17:20 Gram Stain - Final Sputum - Endotracheal Tube Aspirate Sputum Culture - Final Strep agalactiae - (group b) 05/07/21 05:06 Blood Culture - Final Blood NO GROWTH AFTER 5 DAYS 05/07/21 04:40 Blood Culture - Final Blood NO GROWTH AFTER 5 DAYS A&P Assessment and plan (1) Respiratory failure with hypoxia: Worsening hypoxia this morning, PO2 62, PF ratio 137. Paralytics resumed. Additional proning today. Continue antibiotics. IV steroid. With some gradual improvement. Continue mechanical ventilatory support. Sedation, paralytic. Continue empiric antibiotic coverage with Levaquin, Primaxin, vancomycin. Follow-up respiratory cultures. Noted GBS in sputum. Rare gram-positive cocci in pairs chains and clusters, rare gram-negative rods on Gram stain. Pending culture. Pending fungal, mycobacterial studies. Breathing treatments. Inhaled steroid. Check triglycerides. Status: Acute Qualifiers: Chronicity: acute Qualified Code(s): J96.01 - Acute respiratory failure with hypoxia (2) Pneumonia: Secondary to postobstructive pneumonia, possible aspiration pneumonitis, superimposed on interstitial lung disease, emphysema Intubated 05/09/2021 Status post bronchoscopy, removal of foreign body right middle lobe Follow galactomannan, beta D glucan, PCP, fungal, mycobacterial studies. Status: Acute Qualifiers: Laterality: bilateral Lung location: unspecified part of lung Pneumonia type: due to unspecified organism Qualified Code(s): J18.9 - Pneumonia, unspecified organism (3) COPD exacerbation: Continue budesonide. Nebs. Antibiotics. Status: Acute (4) Acute encephalopathy: Elevated risk of delirium. On a number of psychiatric medications. With possible substance use disorder, this is positive for amphetamine. Status: Acute (5) Interstitial lung disease: Status: Acute Additional A&P Information Cardiac echocardiogram, left ventricular appears to be dilated, diastolic function is normal,, moderate pulmonary pretension, Hep C positive Right central line in place Hyperammonemia: Minimal, started lactulose Attestations Medical Necessity Statement*: Continue admission for assessment of management of hypoxic respiratory failure postobstructive/aspiration pneumonia superimposed on underlying interstitial lung disease. Coding Level of Care Code Acute Airplane Woodworker for g Fwd Exam Comprehensive Diagnoses Respiratory failure with hypoxia J96.01 Chronicity: acute Pneumonia J18.9 Laterality: bilateral Lung location: unspecified part of lung Pneumonia type: due to unspecified organism COPD exacerbation J44.1 Acute encephalopathy G93.40 Interstitial lung disease J84.9
[2021-05-12] MEDS: levofloxacin-dextrose 5 % 750 MG/150 ML PREMIX 150 MG IV (18:12)
--- NOTE | 2021-05-12 19:50 | PM.PN ---
Subjective Subjective: Interval history: -Patient seen at bedside today morning -PaO2 down to 62 on 45% FiO2 -Patient still on low-dose paralytic and sedation-patient was made to prone on the discussion today -Labs and imaging reviewed Medications: Reviewed: Yes Vitals/I&O/Wt Last Vital Signs Temp 98.9 F 05/12/21 13:30 Pulse 98 05/12/21 18:30 Resp 18 05/12/21 18:30 BP 154/83 05/12/21 18:30 Pulse Ox 99 05/12/21 18:30 05/12/21 05/12/21 05/12/21 06:59 14:59 22:59 Intake Total 1071.303 / 3098.336 811.220 / 811.220 366.874 / 1178.094 Output Total 775 / 4475 1700 / 1700 Balance 296.303 / -1376.664 811.220 / 811.220 -1333.126 / -521.906 Weight last 48 hrs Weight 232 lb Physical Exam Narrative: EXAM NARRATIVE: General: lying in bed, sedated and intubated. HEENT:NCAT, PERRLA, EOMI Neck: Supple Lungs: Bilateral air entry present with diffuse coarse rhonchi Heart: s1/s2, RRR Abd: soft, NT, ND, BS + Normoactive Extremities: No edema; right BKA amputated GIANT TIRE REPAIRER: sedated and limited GIANT TIRE REPAIRER exam possible. SKIN: no rash LDA: # CVC: Right internal jugular central line 05/09/2021 # Alcantara: 05/09/2021 Urinary Catheter Management^: 2-way Urethral: Cath Placed During This Visit: yes Reason for Continuing Indwelling Catheter: Accurate Measurement of Urinary Output in Critically Ill Patients Urinary Catheter Date of Insertion: 05/09/21 Urinary Catheter Time of Insertion: 05:30 Data : 05/12/21 03:30 05/12/21 03:30 Other Labs: Laboratory Results WBC 10.9 10^3/uL (4.0-10.0) H 05/12/21 03:30 RBC 3.71 10^6/uL (4.1-5.3) L 05/12/21 03:30 Hgb 10.9 g/dL (11.5-15.3) L 05/12/21 03:30 Hct 34.9 % (37.0-47.0) L 05/12/21 03:30 MCV 94.1 fl (81-99) 05/12/21 03:30 MCH 29.4 pg (28.0-34.0) 05/12/21 03:30 MCHC 31.2 g/dL (30.0-36.0) 05/12/21 03:30 RDW 13.0 % (12.1-15.1) 05/12/21 03:30 Plt Count 469 10^3/cmm (130-400) H 05/12/21 03:30 MPV 9.2 fL (7.4-10.4) 05/12/21 03:30 Neut % (Auto) 75.9 % 05/12/21 03:30 Lymph % (Auto) 8.1 % 05/12/21 03:30 [place] % (Auto) 7.3 % 05/12/21 03:30 Eos % (Auto) 0.0 % 05/12/21 03:30 Baso % (Auto) 0.8 % 05/12/21 03:30 Neut # (Auto) 8.27 10^3/uL (1.8-7.7) H 05/12/21 03:30 Lymph # (Auto) 0.9 10^3/uL (0.8-4.8) 05/12/21 03:30 [place] # (Auto) 0.8 10^3/uL (0.2-0.9) 05/12/21 03:30 Eos # (Auto) 0.0 10^3/uL (0.0-0.8) 05/12/21 03:30 Baso # (Auto) 0.1 10^3/uL (0.0-0.1) 05/12/21 03:30 Nucleated RBC % (auto) 0.2 % 05/12/21 03:30 Nucleated RBCs # 0.0 /100WBC 05/12/21 03:30 PT 15.00 SECONDS (12.1-14.9) H 05/12/21 03:30 INR 1.14 (0.8-1.2) 05/12/21 03:30 APTT 35.7 SECONDS (23.9-36.7) 05/07/21 00:15 Fibrinogen 562 mg/dL (174-498) H 05/07/21 00:15 D-Dimer 0.55 ug/mIFEU (0-0.59) 05/12/21 03:30 Specimen Type Arterial 05/12/21 04:48 Sample Site Radial, right 05/12/21 04:48 ABG pH 7.40 (7.35-7.45) 05/12/21 04:48 ABG pCO2 47.4 mmHg (35-45) H 05/12/21 04:48 ABG pO2 62.0 mmHg (80.0-100.0) L 05/12/21 04:48 ABG HCO3 29.4 mmol/L (22-26) H 05/12/21 04:48 ABG O2 Saturation 95.3 05/09/21 16:01 ABG Base Excess 3.9 mmol/L (-2.0-2.0) H 05/12/21 04:48 Darryl Test Pos 05/12/21 04:48 A-a O2 Gradient 71.9 mmHg (5-10) H 05/09/21 16:01 Hematocrit 34.1 % (37-47) L 05/12/21 04:48 Hgb O2 Saturation 93.5 % (95-100) L 05/09/21 16:01 Carboxyhemoglobin 1.4 %THgb (0.4-20.1) 05/09/21 16:01 Methemoglobin 0.4 % (0.4-1.5) 05/09/21 16:01 Total Hemoglobin 11.0 g/dL (12-16) L 05/09/21 16:01 Sodium 138.0 mmol/L (131-143) 05/09/21 16:01 Potassium 4.3 mmol/L (3.5-5.0) 05/09/21 16:01 Glucose 186.0 mg/dL (70-115) H 05/09/21 16:01 Ionized Calcium 1.3 mmol/L (1.1-1.4) 05/09/21 16:01 O2 Delivery Device Vent 05/12/21 04:48 O2 Liters/Min 50.0 % 05/09/21 04:45 FiO2 45.0 % 05/12/21 04:48 Tidal Volume 0.45 05/12/21 04:48 PEEP 10.0 cmH20 05/12/21 04:48 Program Director/Morning Show Host ID Rafael 05/12/21 04:48 Sodium 140 mmol/L (136-145) 05/12/21 03:30 Potassium 4.2 mmol/L (3.5-5.1) 05/12/21 03:30 Chloride 103 mmol/L (98-107) 05/12/21 03:30 Carbon Dioxide 27 mmol/L (22-29) 05/12/21 03:30 Anion Gap 14.2 (5-19) 05/12/21 03:30 BUN 13 mg/dL (6-20) 05/12/21 03:30 Creatinine 0.4 mg/dL (0.5-0.9) L 05/12/21 03:30 GFR Calculation 163.4 mL/min (90-130) H 05/12/21 03:30 Glucose 140 mg/dL (65-115) H 05/12/21 03:30 Calculated Osmolality 292 mOsm/kg (285-295) 05/12/21 03:30 Lactate 1.4 mmol/L (0.5-2.2) 05/12/21 03:30 Calcium 9.2 mg/dL (8.5-10.5) 05/12/21 03:30 Phosphorus 3.0 mg/dL (2.5-4.5) 05/12/21 03:30 Magnesium 2.1 mg/dL (1.7-2.3) 05/12/21 03:30 Ferritin 277 ng/mL (15-150) H 05/07/21 00:15 Total Bilirubin 0.2 mg/dL (0.15-1.2) 05/12/21 03:30 AST 10 U/L (0-32) 05/12/21 03:30 ALT 9 U/L (0-33) 05/12/21 03:30 Alkaline Phosphatase 118 IU/L (35-105) H 05/12/21 03:30 Ammonia 52 umol/L (11-51) H 05/12/21 03:30 Lactate Dehydrogenase 516 U/L (135-214) H 05/08/21 20:01 Creatine Kinase 40 U/L (26-192) 05/12/21 03:30 Troponin T Gen 5 ng/L Cancelled 05/07/21 00:15 Troponin T Baseline 6 ng/L (0-10) 05/11/21 10:30 Troponin T 120 Minute 6.00 ng/L (0-10) 05/11/21 12:45 Delta Troponin T 0 ABS# (0-10) 05/11/21 12:45 Troponin T Hi Sens 6Hr 6.00 ng/L (0-10) 05/11/21 16:20 Troponin T Hi Sens 6Hr Delta 0 ng/L (0-12) 05/11/21 16:20 C-Reactive Protein 65.8 mg/L (0.0-4.9) H 05/12/21 03:30 NT-Pro-B Natriuret Pep 153 pg/mL (0-125) H 05/12/21 03:30 Total Protein 6.7 g/dL (6.6-8.7) 05/12/21 03:30 Albumin 3.2 g/dL (3.5-5.2) L 05/12/21 03:30 Globulin 3.5 g/dL (1.3-4.6) 05/12/21 03:30 Procalcitonin 0.15 ng/mL (0-0.5) 05/12/21 03:30 Vancomycin Trough 13.4 ug/mL (10-15) 05/11/21 17:58 Urine Opiates Screen Negative ng/mL (Negative) 05/07/21 04:24 Ur Barbiturates Screen Negative ng/mL (Negative) 05/07/21 04:24 Ur Phencyclidine Scrn Negative ng/mL (Negative) 05/07/21 04:24 Ur Amphetamines Screen Positive ng/mL (Negative) H 05/07/21 04:24 U Benzodiazepines Scrn Negative ng/mL (Negative) 05/07/21 04:24 Urine Cocaine Screen Negative ng/mL (Negative) 05/07/21 04:24 U Marijuana (THC) Screen Negative ng/mL (Negative) 05/07/21 04:24 RPR Nonreactive (Nonreactive) 05/08/21 20:01 Nasal/Oral COVID-19 PCR Not detected 05/08/21 18:30 Hepatitis A IgM Ab Non-reactive (Nonreactive) 05/07/21 00:15 Hep Bs Antigen Non-reactive (Nonreactive) 05/07/21 00:15 Hep B Core IgM Ab Non-reactive (Nonreactive) 05/07/21 00:15 Hepatitis C Antibody Reactive (Nonreactive) H 05/07/21 00:15 HIV 1&2 Ab & HIV 1 Ag Non-reactive (Non-Reactiv) 05/08/21 20:01 HIV 1&2 Antibody Non-reactive (Non-Reactiv) 05/08/21 20:01 Influenza Type A Ag Negative (Negative) 05/08/21 18:30 Influenza Type B Ag Negative (Negative) 05/08/21 18:30 SARS-CoV-2 Ag (Rapid) Negative (Negative) 05/07/21 00:16 Impressions Chest CTA 05/07/21 01:27 IMPRESSION: 1. Hazy bilateral pulmonary opacities, with consolidation in the left lower lobe. Findings may represent community-acquired pneumonia versus COVID-19.. 2. Evaluation of pulmonary arteries is somewhat limited secondary to respiratory motion. 3. No pulmonary embolism. 4. Atherosclerotic disease of the coronary arteries. 5. No aortic dissection. Radiation Dose CTDIVOL = (mGy): DLP = 875.21 (mGy-cm) Venous Duplex 05/10/21 09:00 IMPRESSION: No evidence of deep vein thrombosis. Radiation Dose CTDIVOL = (mGy): DLP = (mGy-cm) Chest X-Ray 05/11/21 12:14 IMPRESSION: 1. Endotracheal tube tip now position 2.5 cm cephalad to the parag in satisfactory position. 2. No other significant interval change. Radiation Dose CTDIVOL = (mGy): DLP = (mGy-cm) Micro: Microbiology 05/09/21 17:20 Gram Stain - Final Sputum - Endotracheal Tube Aspirate Sputum Culture - Final Strep agalactiae - (group b) 05/07/21 05:06 Blood Culture - Final Blood NO GROWTH AFTER 5 DAYS 05/07/21 04:40 Blood Culture - Final Blood NO GROWTH AFTER 5 DAYS A&P Assessment and plan (1) Respiratory failure with hypoxia: Status: Acute Qualifiers: Chronicity: acute Qualified Code(s): J96.01 - Acute respiratory failure with hypoxia (2) ARDS (adult respiratory distress syndrome): Status: Acute (3) Acute encephalopathy: Status: Acute (4) Pneumonia: Status: Acute Qualifiers: Laterality: bilateral Lung location: unspecified part of lung Pneumonia type: due to unspecified organism Qualified Code(s): J18.9 - Pneumonia, unspecified organism (5) COPD exacerbation: Status: Acute (6) PVD (peripheral vascular disease) with claudication: Status: Acute (7) GERD (gastroesophageal reflux disease): Status: Acute Qualifiers: Esophagitis presence: without esophagitis Qualified Code(s): K21.9 - Gastro-esophageal reflux disease without esophagitis (8) Anxiety: Status: Acute (9) Nicotine dependence, cigarettes, with other nicotine-induced disorders: Status: Acute (10) Aspiration of foreign body in respiratory tract: Status: Acute Qualifiers: Encounter type: initial encounter Qualified Code(s): T17.908A - Unspecified foreign body in respiratory tract, part unspecified causing other injury, initial encounter (11) Amphetamine addiction: Status: Acute (12) Interstitial lung disease: Status: Acute (13) Pulmonary hypertension: Status: Acute #Altered mental status-drug withdrawal/hypoxia/psychiatric #Hypoxic respiratory failure secondary to ARDS-secondary to pneumonia/fluid overload secondary to amphetamine abuse #Aspiration of foreign body-possible cause of postobstructive pneumonia #COPD exacerbation in patient with nicotine dependence #Moderate pulmonary hypertension with RVSP 45 to 50 mmHg and mild TR on echo.LV dilated. #Significant psychiatric history, schizoaffective disorder, bipolar, drug abuse #History of GERD #History of PVD with claudication -Intubated 05/09/2021 and connected to mechanical ventilator currently on CMV mode -Sedated with fentanyl, propofol, Versed and paralyzed-second session of proning today -Today ABG 7.4 0/47/62/29/95% on CMV 450/16/10/45 % -CT chest revealed hazy bilateral pulmonary opacities, with consolidation in the left lower lobe. Findings may represent community-acquired pneumonia versus COVID-19. Evaluation of pulmonary arteries is somewhat limited secondary to respiratory motion. No pulmonary embolism. -S/p bronchoscopy 05/09/2021 revealed a foreign body in RML-later retrieved with therapeutic bronchoscope 10 mm x 5 mm popcorn kernel -BAL positive for strep agalactiae group B-sensitivity pending -BAL galactomannan, beta D glucan, PCP,-pending -Currently on vancomycin/imipenem/levofloxacin for CAP/atypical pneumonia (day 4) -Covid PCR x2 --we will discontinue dexamethasone; started on IV Solu-Medrol 40 every 8 for COPD exacerbation and will gradually taper down based on clinical response -Continue DuoNeb every 4 scheduled nebulization and Pulmicort 0.5 mg twice daily. -Patient also receiving Seroquel 600 p.o. at bedtime, fluoxetine 80 mg p.o. daily, BuSpar 10 mg every 12 hours; psychiatry consulted the patient was intubated and sedated-we'll reconsult once patient is extubated -I/O -1300 cc over last 24 hours-Lasix 20 mg -monitor I&O to keep net even - BNP 1057; Echo 05/09/2021 LV dilated cannot rule out wall motion abnormalities. Moderate pulmonary hypertension with normal RV size and function. RVSP 45 to 50 mmHg and mild TR -U tox positive for amphetamines -Sugars moderately controlled -Started tube feeds @15 mL/h when patient does not want -bowel regimen senna and lactulose -GI prophylaxis Protonix -DVT prophylaxis Lovenox -Prognosis guarded -Recently lost her daughter for fentanyl overdose, another daughter lives in [place] Recommendations conveyed to hospitalist, RN, RT aking care of the patient After second session, we will taper off paralytic and sedation and awakening trial, followed by breathing trials Attestations Medical Necessity Statement*: AMS and acute hypoxic respiratory failure secondary to ARDS due to pneumonia/fluid overload due to amphetamine use Time Spent in Patient Care: Greater than 35 minutes (>than 50% of time spent in counselling and/or direct pt care on unit). Critical Care Time: The high probability of a clinically significant, sudden or life threatening deterioration of the patient's [neurological, pulmonary, cardiac] system(s) required my full and direct attention, intervention and personal management. The critical care time is as shown. This time is in addition to time spent performing any reported procedures but includes the following: [x] Data and vital sign review and interpretation [x] Patient assessment, examination and intervention [x] Documentation [x] Medication orders and management Critical Care Time (min): 55 Coding Level of Care Code Established Pt Acute Card Stripper for Chg Fwd Patient Type Established History Comprehensive Exam Comprehensive Medical Decision Making High Complexity Diagnoses Respiratory failure with hypoxia J96.01 Chronicity: acute ARDS (adult respiratory distress syndrome) J80 Acute encephalopathy G93.40 Pneumonia J18.9 Laterality: bilateral Lung location: unspecified part of lung Pneumonia type: due to unspecified organism COPD exacerbation J44.1 PVD (peripheral vascular disease) with claudication I73.9 GERD (gastroesophageal reflux disease) K21.9 Esophagitis presence: without esophagitis Anxiety F41.9 Nicotine dependence, cigarettes, with other nicotine-induced disorders F17.218 Aspiration of foreign body in respiratory tract T17.908A Encounter type: initial encounter Amphetamine addiction F15.20 Interstitial lung disease J84.9 Pulmonary hypertension I27.20 Time Spent (min) 55
[2021-05-12] MEDS: quetiapine 300 mg Tablet 600 MG PO (20:12)
[2021-05-12] MEDS: sennosides 8.6 mg Tablet PO (20:13)
[2021-05-13] VITALS (60 sets, daily range): BP systolic 102–164; BP diastolic 57–102; PULSE 60–118; RESP 18–26; TEMP 36.3–37.1; O2SAT 91–99; BMI 39.1
[2021-05-13] MEDS: propofol 1,000 MG/100 ML INJ 34.02 MG IV ×3 (00:33→06:42)
[2021-05-13] MEDS: vancomycin 1,250 MG/250 ML PIGGYBACK 250 MG IV ×2 (02:12→18:15)
[2021-05-13] MEDS: BuSPIRONE 10 mg Tablet PO ×2 (02:13→15:35)
[2021-05-13] MEDS: ipratropium-albuterol 3 mL Neb INHALATION ×6 (03:03→23:07)
[2021-05-13 03:47] LABS: ABG PCO2 41.8 mmHg (35-45); ABG PH Result 7.47 (7.35-7.45); Arterial Blood Gas Hematocrit 37.3 % (37-47); Base Excess ABG 5.7 mmol/L (-2.0-2.0); Blood Gas Allen Test Pos; Blood Gas Operator Identificat JB; Blood Gas Sample Site Radial, right; Blood Gas Sample Type Arterial; HCO3 ABG 30.1 mmol/L (22-26); Oxygen Device VENT; PO2 ABG 93.8 mmHg (80.0-100.0)
[2021-05-13 03:48] LABS: Blood Gas Tidal Volume 0.45
[2021-05-13 03:51] LABS: Basophils # 0.1 10^3/uL (0.0-0.1); Basophils % 0.5 %; Eosinophils % 0.1 %; Hematocrit 33.1 % (37.0-47.0); Hemoglobin 10.5 g/dL (11.5-15.3); Lymphocytes # 1.5 10^3/uL (0.8-4.8); Lymphocytes % 13.2 %; Mean Corpuscular HGB Conc 31.7 g/dL (30.0-36.0); Mean Corpuscular Hemoglobin 29.3 pg (28.0-34.0); Mean Corpuscular Volume 92.5 fl (81-99); Mean Platelet Volume 8.9 fL (7.4-10.4); Monocytes # 0.9 10^3/uL (0.2-0.9); Monocytes % 8.1 %; Neutrophils # 7.64 10^3/uL (1.8-7.7); Neutrophils % 69.2 %; Nucleated Red Blood Cells % 0.2 %; Platelet Count 483 10^3/cmm (130-400); Red Blood Count 3.58 10^6/uL (4.1-5.3); Red Cell Distribution Width 13.2 % (12.1-15.1); White Blood Count 11.1 10^3/uL (4.0-10.0)
[2021-05-13 04:06] LABS: Alanine Aminotransferase 9 U/L (0-33); Albumin Level 3.1 g/dL (3.5-5.2); Alkaline Phosphatase 99 IU/L (35-105); Anion Gap 13.8 (5-19); Aspartate Amino Transferase 10 U/L (0-32); Blood Urea Nitrogen 15 mg/dL (6-20); Calcium 8.8 mg/dL (8.5-10.5); Carbon Dioxide 28 mmol/L (22-29); Chloride 101 mmol/L (98-107); Globulin 3.2 g/dL (1.3-4.6); Glomerular Filtration Rate 163.4 mL/min (90-130); Glucose 128 mg/dL (65-115); Osmolality Calculated 290 mOsm/kg (285-295); Potassium 3.8 mmol/L (3.5-5.1); Sodium 139 mmol/L (136-145); Total Bilirubin 0.2 mg/dL (0.15-1.2); Total Protein 6.3 g/dL (6.6-8.7); Triglycerides 123 mg/dL (0-150)
[2021-05-13 04:15] LABS: Slide Review Slide Review Perform
--- NOTE | 2021-05-13 05:04 | PC.NURSE ---
Shift Note Frequent safety and comfort rounds continue. Orders and/or nursing care completed as indicated. Patient monitored for response to intervention and treatment(s). Education provided includes sedation medication and proning/paralyzing. Patient needs further reinforcement. Alcantara catheter drained 1600 mls of bright yellow urine overnight. OG tube hooked to low-intermittent wall suction. No wounds or skin issues noted at this time. Vent settings are as follows; mode-VC-AC, FiO2-40%, VT-450, rate-18, PEEP-10. Right IJ central line has Versed, Propofol, Fentanyl, and Nimbex infusing. Please see MAR for infusion rates. Please see BIS/TOF note for the BIS and TOF monitoring. Will continue to monitor.
[2021-05-13] MEDS: FUROsemide 20 mg Tablet PO (05:51)
[2021-05-13] MEDS: enoxaparin 40 mg/0.4 mL Syringe SUBCUT (05:51)
--- NOTE | 2021-05-13 06:00 | XR_ITS ---
WS: [id number] PORTABLE CHEST HISTORY: Pneumonia COMPARISON: 05/11/2021 Endotracheal tube ends several centimeters above the parag in good position. Nasogastric tube is als o present with tip extending below the GE junction. RIGHT IJ line with tip in the distal SVC. Diffuse pulmonary congestion without significant improvement since the prior study. Mild blunting of the costophrenic angles. No pneumothorax. Cardiac size: Normal. Mediastinum/Aorta: Mild atherosclerosis aorta. No osseous abnormality seen. XR/XR chest 1V portable [id number] IMPRESSION: 1. Nasogastric and endotracheal tubes are in good position. 2. Mild pulmonary venous congestion versus diffuse pneumonitis. No significant improvement.
--- NOTE | 2021-05-13 06:04 | PC.NURSE ---
BIS/TOF Time BIS TOF 2000 46 4 2200 42 4 0000 45 4 0200 34 4 0400 30 4 0600 41 4
[2021-05-13] MEDS: cisatracurium 100 MG in sodium chloride 0.9% 50 ML 5.1 MG IV (06:34)
--- NOTE | 2021-05-13 08:15 | PC.NURSE ---
Pt flipped from prone to supine at this time. Nimbex stopped. Versed, Fentanyl rates decreased in preparation for spontaneous breathing trial. Bathing, hair brushed and oral care provided.
[2021-05-13] MEDS: budesonide 0.5 mg/2 mL Neb INHALATION ×2 (08:30→19:44)
[2021-05-13] MEDS: lamoTRIgine 100 mg Tablet 150 MG PO (09:53)
[2021-05-13] MEDS: fluoxetine 20 mg Capsule 80 MG PO (09:53)
[2021-05-13] MEDS: lactulose oral liq 20 gm/30 mL UDC 10 GM PO ×2 (09:54→20:57)
[2021-05-13] MEDS: buPROPion SR (12 HR) 150 mg Tablet PO ×2 (09:54→21:09)
[2021-05-13] MEDS: pantoprazole 40 mg SDV IVP (10:04)
[2021-05-13] MEDS: vancomycin 1,250 MG/250 ML PIGGYBACK 200 MG IV (11:08)
[2021-05-13] MEDS: propofol 1,000 MG/100 ML INJ 17.01 MG IV ×2 (11:13→18:16)
--- NOTE | 2021-05-13 11:38 | PM.PN ---
Subjective Subjective: Interval history: Intubated, sedated. Vitals/I&O/Wt Last Vital Signs Temp 98.0 F 05/13/21 04:00 Pulse 96 05/13/21 08:11 Resp 18 05/13/21 08:18 BP 164/84 05/13/21 06:00 Pulse Ox 98 05/13/21 08:18 05/12/21 05/13/21 05/13/21 22:59 06:59 14:59 Intake Total 970.973 / 2373.735 2999.79 / 2821.983 100 / 100 Output Total 1700 / 1700 1600 / 3300 Balance -729.027 / 82.193 -560.21 / -478.017 100 / 100 Weight last 48 hrs Weight 109.911 kg Weight 105.233 kg Physical Exam Const: GENERAL APPEARANCE: patient mechanically ventilated OTHER: Intubated, sedated, paralyzed. HENMT: COMMON NORMALS: oropharynx normal Neck/C-Spine: COMMON NORMALS: no JVD Resp: AUSCULTATION: diminished lung sounds Cardio: COMMON NORMALS: no JVD, regular rhythm, S1 normal heart sound present, S2 normal heart sound present and No murmurs present (Cardio) RHYTHM: regular rhythm HEART SOUNDS: S1 normal heart sound present and S2 normal heart sound present GI: COMMON NORMALS: Normal to inspection, nondistended, normoactive bowel sounds present and Soft to palpation PALPATION: Yes Soft to palpation Extremity: COMMON NORMALS: no joint enlargement and no pedal edema OTHER: Right BKA Neuro: COMMON NORMALS: moves all extremities Skin: COMMON NORMALS: no rashes or lesions noted GENERAL SKIN EXAM: no rashes or lesions noted Urinary Catheter Management^: 2-way Urethral: Cath Placed During This Visit: yes Reason for Continuing Indwelling Catheter: Accurate Measurement of Urinary Output in Critically Ill Patients Urinary Catheter Date of Insertion: 05/09/21 Urinary Catheter Time of Insertion: 05:30 Data : 05/13/21 03:10 05/13/21 03:10 Micro: Microbiology 05/12/21 20:18 Legionella Urinary Antigen - Final Urine Catheterized 05/09/21 17:20 Gram Stain - Final Sputum - Endotracheal Tube Aspirate Sputum Culture - Final Strep agalactiae - (group b) 05/07/21 05:06 Blood Culture - Final Blood NO GROWTH AFTER 5 DAYS 05/07/21 04:40 Blood Culture - Final Blood NO GROWTH AFTER 5 DAYS A&P Assessment and plan (1) Respiratory failure with hypoxia: Improving hypoxia, down to 40% FiO2. Weaning of paralytics, weaning down sedation. Reassess respiratory status, mental status, assess readiness for extubation. Continue antibiotics. IV steroid. Stop Primaxin. Continue empiric antibiotic coverage with Levaquin, vancomycin. Follow-up respiratory cultures. Noted GBS in sputum. Pending culture. Pending fungal, mycobacterial studies. Breathing treatments. Inhaled steroid. Normal triglycerides. Could not reach daughter for update. Status: Acute Qualifiers: Chronicity: acute Qualified Code(s): J96.01 - Acute respiratory failure with hypoxia (2) Pneumonia: Secondary to postobstructive pneumonia, possible aspiration pneumonitis, superimposed on interstitial lung disease, emphysema Intubated 05/09/2021 Status post bronchoscopy, removal of foreign body right middle lobe Follow galactomannan, beta D glucan, PCP, fungal, mycobacterial studies. Status: Acute Qualifiers: Laterality: bilateral Lung location: unspecified part of lung Pneumonia type: due to unspecified organism Qualified Code(s): J18.9 - Pneumonia, unspecified organism (3) COPD exacerbation: Continue budesonide. Nebs. Antibiotics. Status: Acute (4) Acute encephalopathy: Elevated risk of delirium. On a number of psychiatric medications. With possible substance use disorder, this is positive for amphetamine. Status: Acute (5) Interstitial lung disease: Status: Acute Additional A&P Information Cardiac echocardiogram, left ventricular appears to be dilated, diastolic function is normal, moderate pulmonary pretension Hep C positive Right central line in place Hyperammonemia: Minimal, started lactulose Attestations Medical Necessity Statement*: Continue admission for weaning off mechanical ventilatory support, weaning of sedation, paralytics, assessment of mental status, reassessment of respiratory's, readiness for extubation. Coding Level of Care Code Acute Pallet Assembler for Dorcas Oliver Diagnoses Respiratory failure with hypoxia J96.01 Chronicity: acute Pneumonia J18.9 Laterality: bilateral Lung location: unspecified part of lung Pneumonia type: due to unspecified organism COPD exacerbation J44.1 Acute encephalopathy G93.40 Interstitial lung disease J84.9
[2021-05-13] MEDS: dexmedeTOMIDine 0.9 % NaCL 400 MCG/100 ML PREMIX 5.5 MCG IV (16:01)
--- NOTE | 2021-05-13 16:24 | PC.NURSE ---
Addendum entered by Ryanne Dewitt RN 05/13/21 16:27: Witnessed waste with MARTHA Ruiz Original Note: Midazolam gtt wasted. 82ml. Witnessed by Ryanne Dewitt RN.
[2021-05-13 17:57] LABS: Aspergillus AG,EIA,Serum NOT DETECTED; Aspergillus Galactomannan Inde <0.50
[2021-05-13] MEDS: levofloxacin-dextrose 5 % 750 MG/150 ML PREMIX 100 MG IV (18:14)
--- NOTE | 2021-05-13 19:06 | PC.NURSE ---
Shift Note: Pt remains sedated and intubated. Spontaneous breathing trial unsuccessful. Pt opened eyes, coughed and chewed on ETT. No other responses noted. Pt would only blink occasionally at threat to eye, just stared straight ahead, pupils did not even react. Sedation now: Fentanyl at 25mcg/hr, Propofol at 25 mcg/kg/min and Precedex at 0.5 mcg/kg/hr. She has had a bath and frequent oral care. No skin issues noted. Her hair was brushed out and braided. She has on OG, which was to LIW suction, she had about 100ml of clear green drainage. this afternoon Jevity 1.2 tube feeds started at 15ml/hr as ordered. 1650 ml of urine output this shift. Frequent safety and comfort rounds continue. Orders and/or nursing care completed as indicated. Patient monitored for response to intervention and treatment(s). Education provided includes Precedex, EEG, Fentanyl. Patient unable to understand at this time. No family called to check on pt's progress this shift. Will continue to monitor.
--- NOTE | 2021-05-13 19:19 | PC.NURSE ---
Daughter, Laurie Samuels, called for update. Discussed unable to extubate today, encephalopathy, other sedation medication, Precedex and EEG in am. All questions answered.
[2021-05-13] MEDS: sennosides 8.6 mg Tablet PO (21:09)
[2021-05-13] MEDS: quetiapine 300 mg Tablet 600 MG PO (21:09)
--- NOTE | 2021-05-13 22:15 | P.PN_ITS ---
Subjective Subjective: Interval history: -seen at bedside multiple times today ; completed second session of proning -Plan is to taper off paralytic and sedation and wake up-towards the afternoon patient opening her eyes but was stating likely with not following commands -Also she has a significant cough interfering with ventilator and so has to start back on Precedex gtt, propofol gtt. and fentanyl 20 MCG -Other labs and imaging reviewed Medications: Reviewed: Yes Vitals/I&O/Wt Last Vital Signs Temp 98.6 F 05/13/21 20:00 Pulse 60 05/13/21 19:44 Resp 18 05/13/21 19:45 BP 119/63 05/13/21 18:30 Pulse Ox 95 05/13/21 19:45 05/13/21 05/13/21 05/13/21 06:59 14:59 22:59 Intake Total 1039.79 / 2821.983 437.210 / 437.210 510.258 / 947.468 Output Total 1600 / 3300 1000 / 1000 Balance -560.21 / -478.017 -562.790 / -562.790 510.258 / -52.532 Weight last 48 hrs Weight 242 lb 5 oz Weight 232 lb Physical Exam Narrative: EXAM NARRATIVE: General: lying in bed, sedated and intubated. HEENT:NCAT, PERRLA, EOMI Neck: Supple Lungs: Bilateral air entry present with diffuse coarse rhonchi Heart: s1/s2, RRR Abd: soft, NT, ND, BS + Normoactive Extremities: No edema; right BKA amputated BULK SEALER: sedated and limited BULK SEALER exam possible. SKIN: no rash LDA: # CVC: Right internal jugular central line 05/09/2021 # [place]: 05/09/2021 Urinary Catheter Management^: 2-way Urethral: Cath Placed During This Visit: yes Reason for Continuing Indwelling Catheter: Accurate Measurement of Urinary Output in Critically Ill Patients Urinary Catheter Date of Insertion: 05/09/21 Urinary Catheter Time of Insertion: 05:30 Data : 05/14/21 04:45 05/14/21 04:45 Micro: Microbiology 05/13/21 04:50 MRSA Culture - Final Nose 05/12/21 20:18 Legionella Urinary Antigen - Final Urine Catheterized A&P Assessment and plan (1) Respiratory failure with hypoxia: Status: Acute Qualifiers: Chronicity: acute Qualified Code(s): J96.01 - Acute respiratory failure with hypoxia (2) ARDS (adult respiratory distress syndrome): Status: Acute (3) Acute encephalopathy: Status: Acute (4) Pneumonia: Status: Acute Qualifiers: Laterality: bilateral Lung location: unspecified part of lung Pneumonia type: due to unspecified organism Qualified Code(s): J18.9 - Pneumonia, unspecified organism (5) COPD exacerbation: Status: Acute (6) PVD (peripheral vascular disease) with claudication: Status: Acute (7) GERD (gastroesophageal reflux disease): Status: Acute Qualifiers: Esophagitis presence: without esophagitis Qualified Code(s): K21.9 - G elmer-esophageal reflux disease without esophagitis (8) Anxiety: Status: Acute (9) Nicotine dependence, cigarettes, with other nicotine-induced disorders: Status: Acute (10) Aspiration of foreign body in respiratory tract: Status: Acute Qualifiers: Encounter type: initial encounter Qualified Code(s): T17.908A - Unspecified foreign body in respiratory tract, part unspecified causing other injury, initial encounter (11) Amphetamine addiction: Status: Acute (12) Pulmonary hypertension: Status: Acute #Altered mental status-drug withdrawal/hypoxia/psychiatric #Hypoxic respiratory failure secondary to ARDS-secondary to pneumonia/fluid over load secondary to amphetamine abuse #Aspiration of foreign body-possible cause of postobstructive pneumonia #COPD exacerbation in patient with nicotine dependence #Moderate pulmonary hypertension with RVSP 45 to 50 mmHg and mild TR on echo.LV dilated. #Significant psychiatric history, schizoaffective disorder, bipolar, drug abuse #History of GERD #History of PVD with claudication -Intubated 05/09/2021 and connected to mechanical ventilator currently on CMV mode -Sedated with fentanyl, propofol, Versed and paralyzed-completed 2 proning sessions -Plan is to taper off sedation and wake the patient -Today ABG 7.4 741/93/30/on CMV 450/10/40 % -CT chest revealed hazy bilateral pulmonary opacities, with consolidation in the left lower lobe. Findings may represent community-acquired pneumonia versus COVID-19. Evaluation of pulmonary arteries is somewhat limited secondary to respiratory motion. No pulmonary embolism. -S/p bronchoscopy 05/09/2021 revealed a foreign body in RML-later retrieved with therapeutic bronchoscope 10 mm x 5 mm popcorn kernel -BAL positive for strep agalactiae group B-currently on vancomycin; DC'd imipenem -We will discontinue Levaquin after 7 days-started 05/11/2021 -BAL galactomannan, beta D glucan, PCP,-pending -Covid PCR x2 --we will discontinue dexamethasone; started on IV Solu-Medrol 40 every 8 for COPD exacerbation and will gradually taper down based on clinical response; -Also bronchoscopy showed significant excessive dynamic airway compression probably contributing to his airway constriction while taking of sedation -Continue DuoNeb every 4 scheduled nebulization and Pulmicort 0.5 mg twice daily. -Patient also receiving Seroquel 600 p.o. at bedtime, fluoxetine 80 mg p.o. daily, BuSpar 10 mg every 12 hours; Wellbutrin 150 p.o. every 12, psychiatry consulted the patient was intubated and sedated- reconsult once patient is extubated -I/O - 470 cc over last 24 hours-Lasix 20 mg -monitor I&O to keep net even - BNP 1057; Echo 05/09/2021 LV dilated cannot rule out wall motion abnormalities. Moderate pulmonary hypertension with normal RV size and function. RVSP 45 to 50 mmHg and mild TR -U tox positive for amphetamines -Sugars moderately controlled -Started tube feeds @15 mL/h-increase to 30 mL/h -bowel regimen senna and lactulose -GI prophylaxis Protonix -DVT prophylaxis Lovenox -Prognosis guarded -Recently lost her daughter for fentanyl overdose, another daughter lives in [place] Recommendations conveyed to hospitalist, RN, RT aking care of the patient We will taper off paralytic and sedation and awakening trial, followed by breathing trials Attestations Medical Necessity Statement*: AMS and acute hypoxic respiratory failure secondary to ARDS due to pneumonia/fluid overload due to amphetamine use Time Spent in Patient Care: Greater than 35 minutes (>than 50% of time spent in counselling and/or direct pt care on unit) . Critical Care Time: The high probability of a clinically significant, sudden or life threatening deterioration of the patient's [neurological, pulmonary, cardiac] system(s) required my full and direct attention, intervention and personal management. The critical care time is as shown. This time is in addition to time spent performing any reported procedures but includes the following: [x] Data and vital sign review and interpretation [x] Patient assessment, examination and intervention [x] Documentation [x] Medication orders and management Critical Care Time (min): 35 Coding Level of Care Code Established Pt Acute Supervisor Twisting Department for Chg Fwd Patient Type Established History Comprehensive Exam Comprehensive Medical Decision Making High Complexity Diagnoses Respiratory failure with hypoxia J96.01 Chronicity: acute ARDS (adult respiratory distress syndrome) J80 Acute encephalopathy G93.40 Pneumonia J18.9 Laterality: bilateral Lung location: unspecified part of lung Pneumonia type: due to unspecified organism COPD exacerbation J44.1 PVD (peripheral vascular disease) with claudication I73.9 GERD (gastroesophageal reflux disease) K21.9 Esophagitis presence: without esophagitis Anxiety F41.9 Nicotine dependence, cigarettes, with other nicotine-induced disorders F17.218 Aspiration of foreign body in respiratory tract T17.908A Encounter type: initial encounter Amphetamine addiction F15.20 Pulmonary hypertension I27.20 Time Spent (min) 45
[2021-05-13] MEDS: propofol 1,000 MG/100 ML INJ 27.22 MG IV (23:15)
[2021-05-13] MEDS: dexmedeTOMIDine 0.9 % NaCL 400 MCG/100 ML PREMIX 8.24 MCG IV (23:16)
[2021-05-14] VITALS (67 sets, daily range): BP systolic 102–154; BP diastolic 64–115; PULSE 54–92; RESP 14–20; TEMP 36.7–37.2; O2SAT 89–94; BMI 37.5
[2021-05-14] MEDS: BuSPIRONE 10 mg Tablet PO ×2 (01:48→14:10)
[2021-05-14] MEDS: vancomycin 1,250 MG/250 ML PIGGYBACK 250 MG IV ×3 (02:28→18:05)
[2021-05-14] MEDS: propofol 1,000 MG/100 ML INJ 27.22 MG IV (02:28)
[2021-05-14] MEDS: ipratropium-albuterol 3 mL Neb INHALATION ×6 (03:50→23:33)
[2021-05-14 04:56] LABS: Basophils % 0.3 %; Hemoglobin 10.8 g/dL (11.5-15.3); Lymphocytes # 1.1 10^3/uL (0.8-4.8); Lymphocytes % 8.7 %; Mean Corpuscular HGB Conc 31.8 g/dL (30.0-36.0); Mean Corpuscular Hemoglobin 29.5 pg (28.0-34.0); Mean Corpuscular Volume 92.9 fl (81-99); Mean Platelet Volume 8.9 fL (7.4-10.4); Monocytes # 0.8 10^3/uL (0.2-0.9); Monocytes % 6.2 %; Neutrophils # 9.34 10^3/uL (1.8-7.7); Neutrophils % 77.7 %; Nucleated Red Blood Cells % 0 %; Platelet Count 400 10^3/cmm (130-400); Red Blood Count 3.66 10^6/uL (4.1-5.3); Red Cell Distribution Width 13.3 % (12.1-15.1)
[2021-05-14] MEDS: enoxaparin 40 mg/0.4 mL Syringe SUBCUT (05:03)
[2021-05-14] MEDS: FUROsemide 20 mg Tablet PO (05:03)
[2021-05-14 05:27] LABS: Alanine Aminotransferase 13 U/L (0-33); Albumin Level 3.3 g/dL (3.5-5.2); Alkaline Phosphatase 102 IU/L (35-105); Anion Gap 13.4 (5-19); Aspartate Amino Transferase 16 U/L (0-32); Blood Urea Nitrogen 19 mg/dL (6-20); Carbon Dioxide 26 mmol/L (22-29); Chloride 101 mmol/L (98-107); Creatinine Clr Calc Pharmacy 152.1287; Globulin 3.3 g/dL (1.3-4.6); Glomerular Filtration Rate 126.3 mL/min (90-130); Glucose 184 mg/dL (65-115); Osmolality Calculated 289 mOsm/kg (285-295); Potassium 4.4 mmol/L (3.5-5.1); Sodium 136 mmol/L (136-145); Total Bilirubin 0.2 mg/dL (0.15-1.2); Total Protein 6.6 g/dL (6.6-8.7)
[2021-05-14 05:31] LABS: Slide Review Slide Review Perform
--- NOTE | 2021-05-14 05:50 | PC.NURSE ---
Shift Note Frequent safety and comfort rounds continue. Orders and/or nursing care completed as indicated. Patient monitored for response to intervention and treatment(s). Patient was intubated and sedated, therefore unable to receive any teaching. The patient's daughter at the beginning of the shift was on the phone with the day shift nurse receiving an update. Patient required extra sedation as it got closer to 2100, she began to open her eyes more. The patient began to progressively move her body more, but would not follow any commands. There were no unprecedented events during the shift, and the patient did well with extra sedation. Total urine output was 700 mL, no bowel movement during the shift, patient hovered between bradycardia and a normal sinus rhythm, and the blood pressure remained within normal limits. The oxygenation has hovered in the low 90's and the FiO2 has remained at 40. There were no skin issues noted on the patient, nor redness on the patient's bottom. The temperature has remained in the 98 range.
--- NOTE | 2021-05-14 06:16 | PC.NURSE ---
The patient was bathed during the shift.
[2021-05-14] MEDS: propofol 1,000 MG/100 ML INJ 23.81 MG IV ×4 (06:35→23:44)
[2021-05-14] MEDS: dexmedeTOMIDine 0.9 % NaCL 400 MCG/100 ML PREMIX 8.24 MCG IV ×3 (06:36→19:52)
[2021-05-14] MEDS: lactulose oral liq 20 gm/30 mL UDC 10 GM PO ×2 (07:59→20:57)
[2021-05-14] MEDS: lamoTRIgine 100 mg Tablet 150 MG PO (08:00)
[2021-05-14] MEDS: fluoxetine 20 mg Capsule 80 MG PO (08:00)
[2021-05-14] MEDS: buPROPion SR (12 HR) 150 mg Tablet PO ×2 (08:00→20:57)
[2021-05-14] MEDS: pantoprazole 40 mg SDV IVP (08:01)
[2021-05-14] MEDS: budesonide 0.5 mg/2 mL Neb INHALATION ×2 (08:17→19:49)
--- NOTE | 2021-05-14 09:19 | PC.CHAP ---
Pastoral Care Encounter/Spiritual Assessment Type of Contact [] Declined motorcycle mechanic visit [] Patient/Family/Request visit [] Outpatient visit [] Follow-up visit [] Physician referral [] Code/Alert [x] Routine visit [] Staff referral [] Actively dying [] Patient sleeping [] Family support [] [] Out of room [] Palliative care [] [] Receiving care in room [] Pre-surgical visit [] Trauma [] Long length of stay [x] ICU visit [x] Other: vent Relational/Emotional Strength [] Patient feels connected with others/family/visitors/staff [] Distress [] Loneliness/isolation [] Abandonment Spirituality of Patient [] Person of Love [] Attends Religion of their Love [] Believes in Prayer [] Reads Bible or Mandaeism materials [] There are Spiritual issues to be addressed Explosives Handler Interventions [x] Prayer [] Active listening [] Non-anxious presence [] Spiritual/emotional support [] Crisis/trauma care [] Spiritual counseling [] Bereavement support [] Provided bereavement packet [] Provided Bible/devotional materials [] Provided toy/stuffed animal, coloring book to patient or family member [] Provided Communion [] Anointing/[place] [] Salvation [x] Completed spiritual assessment [] Other: Impact on Illness or Injury [] Angry [] Fearful [] Anxious [] Often cries [] Exhaustion [] Unable to work [] Unable to attend roman catholic [] Unable to walk/stand [] Unable to read [] Unable to drive [] Unable to eat/drink [] Unable to sleep [] Unable to be with family [] Patient intubated [] Other: Summary Time spent with patient
[2021-05-14 10:22] LABS: Adenovirus Not Detected (Not Detected); Human Metapneumovirus Not Detected (Not Detected); Human Parainflu Virus 1 Not Detected (Not Detected); Human Parainflu Virus 2 Not Detected (Not Detected); Human Parainflu Virus 3 Not Detected (Not Detected); Human Rsv A Not Detected (Not Detected); Influenza A Not Detected (Not Detected); Influenza B Not Detected (Not Detected); Rhinovirus/Enterovirus Not Detected (Not Detected)
--- NOTE | 2021-05-14 16:25 | XRR_ITS ---
PROCEDURE INFORMATION: Exam: XR Chest Exam date and time: 05/14/2021 4:25 PM Age: 61 years old Clinical indication: Device placement; Patient HX: Follow up confirmation og placement after patient moved tube; Additional info: Og tube TECHNIQUE: Imaging protocol: XR of the chest. Views: 1 view. COMPARISON: CR XR chest 1V portable [id number] 05/13/2021 8:55 AM FINDINGS: Tubes, catheters and devices: OG tube terminates within the stomach. Stable positioning of the right IJ line in the distal SVC. Endotracheal tube is located 2 cm above the parag. Lungs: No focal consolidation. Pleural spaces: Similar mild blunting of the costophrenic angles, potentially related to trace pleural effusions. No pneumothorax. Heart/Mediastinum: Borderline enlarged heart size accentuated by AP portable view. Mild pulmonary venous congestion again noted. Bones/joints: Visualized osseous structures are intact. XR/XR chest 1V portable [id number] IMPRESSION: Proper positioning of the OG tube. Radiation Dose CTDIVOL = (mGy): DLP = (mGy-cm)
--- NOTE | 2021-05-14 18:00 | PM.MISC ---
Miscellaneous Note Purpose of Documentation: eeg Note: ORDERING PHYSICIAN: Dr. Simon. REASON FOR STUDY: Encephalopathy. STUDY: This was a 21 channel digital electroencephalogram performed using the 10-20 international system of electrode placement. This study was performed at the bedside. Her eyes were open during a substantial portion of the tracing. She was actively coughing which created a great deal of artifact in the early portion of the tracing. Photic stimulation and hyperventilation were included. FINDINGS: The early portion of the tracing was badly marred by cough artifact with high voltage high frequency muscle artifact completely obscuring the background. The midportion of the tracing was characterized by low voltage fast activity superimposed upon diffuse slowing in the delta range. Photic stimulation did not have significant impact on the background. Painful stimulation had an alerting effect but best response was diffuse high-voltage slowing. She was noted to gag on the endotracheal tube to stimulation. IMPRESSION: Profound diffuse slowing consistent with diffuse brain dysfunction and an intubated patient in ICU performed at the bedside. The degree of sedation was not mentioned but this study would suggest that the patient is on sedatives or has profound diffuse brain dysfunction from toxic or metabolic cause. No specific epileptiform features. Duration of EE.1
[2021-05-14 18:01] LABS: ABG PCO2 37.4 mmHg (35-45); ABG PH Result 7.48 (7.35-7.45); Base Excess ABG 4.4 mmol/L (-2.0-2.0); Blood Gas Allen Test Pos; Oxygen Device VENT; PO2 ABG 64.8 mmHg (80.0-100.0)
[2021-05-14 18:02] LABS: Arterial Blood Gas Hematocrit 46.7 % (37-47); Blood Gas Sample Site Radial, right; Blood Gas Sample Type Arterial; Blood Gas Tidal Volume 0.45
[2021-05-14] MEDS: levofloxacin-dextrose 5 % 750 MG/150 ML PREMIX 100 MG IV (18:03)
--- NOTE | 2021-05-14 18:34 | PC.NURSE ---
Shift Note Frequent safety and comfort rounds continue. Orders and/or nursing care completed as indicated. Patient monitored for response to intervention and treatment(s). Education provided includes sedation weaning and EEG to shila Graham. Patient and/or associate financial representative verbalize understanding. Will continue to monitor.
--- NOTE | 2021-05-14 20:11 | PM.PN ---
Subjective Subjective: Interval history: Intubated, sedated. Eyes partially open, appears to look in the direction of her name being called. Does not make eye contact or follow commands. Vitals/I&O/Wt Last Vital Signs Temp 98.1 F 05/14/21 16:00 Pulse 59 L 05/14/21 19:56 Resp 14 05/14/21 19:52 BP 116/70 05/14/21 18:00 Pulse Ox 92 05/14/21 19:52 05/14/21 05/14/21 05/14/21 06:59 14:59 22:59 Intake Total 805.855 / 1777.927 688.817 / 688.817 351.5 / 1040.317 Output Total 700 / 1700 1700 / 1700 1600 / 3300 Balance 105.855 / 77.927 -1011.183 / -1011.183 -1248.5 / -2259.683 Weight last 48 hrs Weight 105.489 kg Weight 109.911 kg Physical Exam Const: GENERAL APPEARANCE: patient mechanically ventilated OTHER: Intubated, sedated. Eyes partially open. Not answering questions or following commands. HENMT: COMMON NORMALS: oropharynx normal Neck/C-Spine: COMMON NORMALS: no JVD Resp: AUSCULTATION: diminished lung sounds (Improving) Cardio: COMMON NORMALS: no JVD, regular rhythm, S1 normal heart sound present, S2 normal heart sound present and No murmurs present (Cardio) RHYTHM: regular rhythm HEART SOUNDS: S1 normal heart sound present and S2 normal heart sound present GI: COMMON NORMALS: Normal to inspection, nondistended, normoactive bowel sounds present and Soft to palpation PALPATION: Yes Soft to palpation Extremity: COMMON NORMALS: no joint enlargement and no pedal edema OTHER: Right BKA Neuro: COMMON NORMALS: moves all extremities Skin: COMMON NORMALS: no rashes or lesions noted GENERAL SKIN EXAM: no rashes or lesions noted Urinary Catheter Management^: 2-way Urethral: Cath Placed During This Visit: yes Reason for Continuing Indwelling Catheter: Accurate Measurement of Urinary Output in Critically Ill Patients Urinary Catheter Date of Insertion: 05/09/21 Urinary Catheter Time of Insertion: 05:30 Data : 05/14/21 04:45 05/14/21 04:45 A&P Assessment and plan (1) Respiratory failure with hypoxia: Persistent delirium/encephalopathy. EEG obtained, generalized slowing, no epileptiform discharges noted. Decrease quetiapine dose tonight. Attempt waking trial again in the morning. Continue attempts to wean off mechanical ventilation. Group B strep growing on sputum culture. Continue empiric antibiotic coverage with Levaquin, vancomycin. Pending fungal, mycobacterial studies. Breathing treatments. Inhaled steroid. Status: Acute Qualifiers: Chronicity: acute Qualified Code(s): J96.01 - Acute respiratory failure with hypoxia (2) Pneumonia: Secondary to postobstructive pneumonia, possible aspiration pneumonitis, superimposed on interstitial lung disease, emphysema Intubated 05/09/2021 Status post bronchoscopy, removal of foreign body right middle lobe Follow galactomannan, beta D glucan, PCP, fungal, mycobacterial studies. Status: Acute Qualifiers: Laterality: bilateral Lung location: unspecified part of lung Pneumonia type: due to unspecified organism Qualified Code(s): J18.9 - Pneumonia, unspecified organism (3) COPD exacerbation: Continue budesonide. Nebs. Antibiotics. Status: Acute (4) Acute encephalopathy: Elevated risk of delirium. On a number of psychiatric medications. With possible substance use disorder, this is positive for amphetamine. Status: Acute (5) Interstitial lung disease: Status: Acute Additional A&P Information Cardiac echocardiogram, left ventricular appears to be dilated, diastolic function is normal, moderate pulmonary pretension Hep C positive Right central line in place Hyperammonemia: Minimal, started lactulose Attestations Medical Necessity Statement*: Continue admission for assessment of management of hypoxic respiratory failure, following aspiration pneumonia, continued weaning of sedation and mechanical ventilation. Coding Level of Care Code Acute Resident Inspector for Dorcas Oliver Diagnoses Respiratory failure with hypoxia J96.01 Chronicity: acute Pneumonia J18.9 Laterality: bilateral Lung location: unspecified part of lung Pneumonia type: due to unspecified organism COPD exacerbation J44.1 Acute encephalopathy G93.40 Interstitial lung disease J84.9
[2021-05-14] MEDS: sennosides 8.6 mg Tablet PO (20:57)
[2021-05-14] MEDS: quetiapine 300 mg Tablet PO (20:57)
--- NOTE | 2021-05-14 21:52 | P.PN_ITS ---
Subjective Subjective: Interval history: -Patient seen at bedside today multiple times -Has been significantly coughing while tapering off sedation -Intermittently following commands but still has a staring look -Violently coughing while tapering off sedation-possibly due to excessive dynamic airway compression that was noticed during bronchoscopy -It has been very challenging to take off sedation and extubate this patient who was on multiple psychiatric medications and history of drug abuse and current admission with amphetamine overdose -other labs and imaging reviewed Medications: Reviewed: Yes Vitals/I&O/Wt Last Vital Signs Temp 98.1 F 05/14/21 16:00 Pulse 59 L 05/14/21 19:56 Resp 14 05/14/21 21:49 BP 116/70 05/14/21 18:00 Pulse Ox 93 05/14/21 21:49 05/14/21 05/14/21 05/14/21 06:59 14:59 22:59 Intake Total 805.855 / 1777.927 688.817 / 688.817 851.5 / 1540.317 Output Total 700 / 1700 1700 / 1700 1600 / 3300 Balance 105.855 / 77.927 -1011.183 / -1011.183 -748.5 / -1759.683 Weight last 48 hrs Weight 232 lb 9 oz Weight 242 lb 5 oz Physical Exam Narrative: EXAM NARRATIVE: General: lying in bed, sedated and intubated. HEENT:NCAT, PERRLA, EOMI Neck: Supple Lungs: Bilateral air entry present with diffuse coarse rhonchi Heart: s1/s2, RRR Abd: soft, NT, ND, BS + Normoactive Extremities: No edema; right BKA amputated READING PROFESSOR: sedated and limited READING PROFESSOR exam possible. SKIN: no rash LDA: # CVC: Right internal jugular central line 05/09/2021 # Alcantara: 05/09/2021 Urinary Catheter Management^: 2-way Urethral: Cath Placed During This Visit: yes Reason for Continuing Indwelling Catheter: Accurate Measurement of Urinary Output in Critically Ill Patients Urinary Catheter Date of Insertion: 05/09/21 Urinary Catheter Time of Insertion: 05:30 Data : 05/14/21 04:45 05/14/21 04:45 Other Labs: Laboratory Results WBC 12.0 10^3/uL (4.0-10.0) H 05/14/21 04:45 RBC 3.66 10^6/uL (4.1-5.3) L 05/14/21 04:45 Hgb 10.8 g/dL (11.5-15.3) L 05/14/21 04:45 Hct 34.0 % (37.0-47.0) L 05/14/21 04:45 MCV 92.9 fl (81-99) 05/14/21 04:45 MCH 29.5 pg (28.0-34.0) 05/14/21 04:45 MCHC 31.8 g/dL (30.0-36.0) 05/14/21 04:45 RDW 13.3 % (12.1-15.1) 05/14/21 04:45 Plt Count 400 10^3/cmm (130-400) 05/14/21 04:45 MPV 8.9 fL (7.4-10.4) 05/14/21 04:45 Neut % (Auto) 77.7 % 05/14/21 04:45 Lymph % (Auto) 8.7 % 05/14/21 04:45 Weber % (Auto) 6.2 % 05/14/21 04:45 Eos % (Auto) 0.0 % 05/14/21 04:45 Baso % (Auto) 0.3 % 05/14/21 04:45 Neut # (Auto) 9.34 10^3/uL (1.8-7.7) H 05/14/21 04:45 Lymph # (Auto) 1.1 10^3/uL (0.8-4.8) 05/14/21 04:45 Weber # (Auto) 0.8 10^3/uL (0.2-0.9) 05/14/21 04:45 Eos # (Auto) 0.0 10^3/uL (0.0-0.8) 05/14/21 04:45 Baso # (Auto) 0.0 10^3/uL (0.0-0.1) 05/14/21 04:45 Nucleated RBC % (auto) 0 % 05/14/21 04:45 Nucleated RBCs # 0.0 /100WBC 05/14/21 04:45 PT 15.00 SECONDS (12.1-14.9) H 05/12/21 03:30 INR 1.14 (0.8-1.2) 05/12/21 03:30 APTT 35.7 SECONDS (23.9-36.7) 05/07/21 00:15 Fibrinogen 562 mg/dL (174-498) H 05/07/21 00:15 D-Dimer 0.55 ug/mIFEU (0-0.59) 05/12/21 03:30 Specimen Type Arterial 05/14/21 04:50 Sample Site Radial, right 05/14/21 04:50 ABG pH 7.48 (7.35-7.45) H 05/14/21 04:50 ABG pCO2 37.4 mmHg (35-45) 05/14/21 04:50 ABG pO2 64.8 mmHg (80.0-100.0) L 05/14/21 04:50 ABG HCO3 28.0 mmol/L (22-26) H 05/14/21 04:50 ABG O2 Saturation 95.3 05/09/21 16:01 ABG Base Excess 4.4 mmol/L (-2.0-2.0) H 05/14/21 04:50 Darryl Test Pos 05/14/21 04:50 A-a O2 Gradient 71.9 mmHg (5-10) H 05/09/21 16:01 Hematocrit 46.7 % (37-47) 05/14/21 04:50 Hgb O2 Saturation 93.5 % (95-100) L 05/09/21 16:01 Carboxyhemoglobin 1.4 %THgb (0.4-20.1) 05/09/21 16:01 Methemoglobin 0.4 % (0.4-1.5) 05/09/21 16:01 Total Hemoglobin 11.0 g/dL (12-16) L 05/09/21 16:01 Sodium 138.0 mmol/L (131-143) 05/09/21 16:01 Potassium 4.3 mmol/L (3.5-5.0) 05/09/21 16:01 Glucose 186.0 mg/dL (70-115) H 05/09/21 16:01 Ionized Calcium 1.3 mmol/L (1.1-1.4) 05/09/21 16:01 Respiration Rate 18.0 % 05/14/21 04:50 O2 Delivery Device Vent 05/14/21 04:50 O2 Liters/Min 50.0 % 05/09/21 04:45 FiO2 40.0 % 05/14/21 04:50 Tidal Volume 0.45 05/14/21 04:50 PEEP 10.0 cmH20 05/14/21 04:50 Software Configuration Specialist ID Brown 05/14/21 04:50 Sodium 136 mmol/L (136-145) 05/14/21 04:45 Potassium 4.4 mmol/L (3.5-5.1) 05/14/21 04:45 Chloride 101 mmol/L (98-107) 05/14/21 04:45 Carbon Dioxide 26 mmol/L (22-29) 05/14/21 04:45 Anion Gap 13.4 (5-19) 05/14/21 04:45 BUN 19 mg/dL (6-20) 05/14/21 04:45 Creatinine 0.5 mg/dL (0.5-0.9) 05/14/21 04:45 GFR Calculation 126.3 mL/min (90-130) 05/14/21 04:45 Glucose 184 mg/dL (65-115) H 05/14/21 04:45 Calculated Osmolality 289 mOsm/kg (285-295) 05/14/21 04:45 Lactate 1.4 mmol/L (0.5-2.2) 05/12/21 03:30 Calcium 9.0 mg/dL (8.5-10.5) 05/14/21 04:45 Phosphorus 3.0 mg/dL (2.5-4.5) 05/12/21 03:30 Magnesium 2.1 mg/dL (1.7-2.3) 05/12/21 03:30 Ferritin 277 ng/mL (15-150) H 05/07/21 00:15 Total Bilirubin 0.2 mg/dL (0.15-1.2) 05/14/21 04:45 AST 16 U/L (0-32) 05/14/21 04:45 ALT 13 U/L (0-33) 05/14/21 04:45 Alkaline Phosphatase 102 IU/L (35-105) 05/14/21 04:45 Ammonia 52 umol/L (11-51) H 05/12/21 03:30 Lactate Dehydrogenase 516 U/L (135-214) H 05/08/21 20:01 Creatine Kinase 40 U/L (26-192) 05/12/21 03:30 Troponin T Gen 5 ng/L Cancelled 05/07/21 00:15 Troponin T Baseline 6 ng/L (0-10) 05/11/21 10:30 Troponin T 120 Minute 6.00 ng/L (0-10) 05/11/21 12:45 Delta Troponin T 0 ABS# (0-10) 05/11/21 12:45 Troponin T Hi Sens 6Hr 6.00 ng/L (0-10) 05/11/21 16:20 Troponin T Hi Sens 6Hr Delta 0 ng/L (0-12) 05/11/21 16:20 C-Reactive Protein 65.8 mg/L (0.0-4.9) H 05/12/21 03:30 NT-Pro-B Natriuret Pep 153 pg/mL (0-125) H 05/12/21 03:30 Total Protein 6.6 g/dL (6.6-8.7) 05/14/21 04:45 Albumin 3.3 g/dL (3.5-5.2) L 05/14/21 04:45 Globulin 3.3 g/dL (1.3-4.6) 05/14/21 04:45 Triglycerides 123 mg/dL (0-150) 05/13/21 03:10 Procalcitonin 0.15 ng/mL (0-0.5) 05/12/21 03:30 RSV Nasal Swab Not detected (Not Detected) 05/10/21 11:05 RSV Nasal Swab Int Cntl Not detected (Not Detected) 05/10/21 11:05 Vancomycin Trough 13.4 ug/mL (10-15) 05/11/21 17:58 Urine Opiates Screen Negative ng/mL (Negative) 05/07/21 04:24 Ur Barbiturates Screen Negative ng/mL (Negative) 05/07/21 04:24 Ur Phencyclidine Scrn Negative ng/mL (Negative) 05/07/21 04:24 Ur Amphetamines Screen Positive ng/mL (Negative) H 05/07/21 04:24 U Benzodiazepines Scrn Negative ng/mL (Negative) 05/07/21 04:24 Urine Cocaine Screen Negative ng/mL (Negative) 05/07/21 04:24 U Marijuana (THC) Screen Negative ng/mL (Negative) 05/07/21 04:24 RPR Nonreactive (Nonreactive) 05/08/21 20:01 Adenovirus (PCR) Not detected (Not Detected) 05/10/21 11:05 Nasal/Oral COVID-19 PCR Not detected 05/08/21 18:30 Hepatitis A IgM Ab Non-reactive (Nonreactive) 05/07/21 00:15 Hep Bs Antigen Non-reactive (Nonreactive) 05/07/21 00:15 Hep B Core IgM Ab Non-reactive (Nonreactive) 05/07/21 00:15 Hepatitis C Antibody Reactive (Nonreactive) H 05/07/21 00:15 HIV 1&2 Ab & HIV 1 Ag Non-reactive (Non-Reactiv) 05/08/21 20:01 HIV 1&2 Antibody Non-reactive (Non-Reactiv) 05/08/21 20:01 Human Metapneumovir PCR Not detected (Not Detected) 05/10/21 11:05 Influenza A (RT-PCR) Not detected (Not Detected) 05/10/21 11:05 Influenza A (H1) PCR Not detected (Not Detected) 05/10/21 11:05 Influenza A (H3) PCR Not detected (Not Detected) 05/10/21 11:05 Influenza Type A Ag Negative (Negative) 05/08/21 18:30 Influenza Type B Ag Negative (Negative) 05/08/21 18:30 Influenza B (RT-PCR) Not detected (Not Detected) 05/10/21 11:05 Parainfluenzae Type 1 Not detected (Not Detected) 05/10/21 11:05 Parainfluenzae Type 2 Not detected (Not Detected) 05/10/21 11:05 Parainfluenzae Type 3 Not detected (Not Detected) 05/10/21 11:05 A. galactomannan Ag EIA Not detected 05/08/21 20:01 A. galactomannan Ag Idx <0.50 05/08/21 20:01 RSV Ab Comment see note 05/10/21 11:05 Rhinovirus (PCR) Not detected (Not Detected) 05/10/21 11:05 SARS-CoV-2 Ag (Rapid) Negative (Negative) 05/07/21 00:16 TB (QFT) Gold In Tube Cancelled 05/08/21 11:00 TB Test (QFT) Nil Cancelled 05/08/21 11:00 TB Test (QFT) Mitogen Cancelled 05/08/21 11:00 TB Test Mitogen - Nil Cancelled 05/08/21 11:00 TB Test TB - Nil Cancelled 05/08/21 11:00 Impressions Chest CTA 05/07/21 01:27 IMPRESSION: 1. Hazy bilateral pulmonary opacities, with consolidation in the left lower lobe. Findings may represent community-acquired pneumonia versus COVID-19.. 2. Evaluation of pulmonary arteries is somewhat limited secondary to respiratory motion. 3. No pulmonary embolism. 4. Atherosclerotic disease of the coronary arteries. 5. No aortic dissection. Radiation Dose CTDIVOL = (mGy): DLP = 875.21 (mGy-cm) Venous Duplex 05/10/21 09:00 IMPRESSION: No evidence of deep vein thrombosis. Radiation Dose CTDIVOL = (mGy): DLP = (mGy-cm) Chest X-Ray 05/14/21 16:25 IMPRESSION: Proper positioning of the OG tube. Radiation Dose CTDIVOL = (mGy): DLP = (mGy-cm) A&P Assessment and plan (1) Respiratory failure with hypoxia: Status: Acute Qualifiers: Chronicity: acute Qualified Code(s): J96.01 - Acute respiratory failure with hypoxia (2) ARDS (adult respiratory distress syndrome): Status: Acute (3) Acute encephalopathy: Status: Acute (4) Pneumonia: Status: Acute Qualifiers: Laterality: bilateral Lung location: unspecified part of lung Pneumonia type: due to unspecified organism Qualified Code(s): J18.9 - Pneumonia, unspecified organism (5) COPD exacerbation: Status: Acute (6) PVD (peripheral vascular disease) with claudication: Status: Acute (7) GERD (gastroesophageal reflux disease): Status: Acute Qualifiers: Esophagitis presence: without esophagitis Qualified Code(s): K21.9 - Gastro-esophageal reflux disease without esophagitis (8) Anxiety: Status: Acute (9) Nicotine dependence, cigarettes, with other nicotine-induced disorders: Status: Acute (10) Aspiration of foreign body in respiratory tract: Status: Acute Qualifiers: Encounter type: initial encounter Qualified Code(s): T17.908A - Unspecified foreign body in respiratory tract, part unspecified causing other injury, initial encounter (11) Amphetamine addiction: Status: Acute (12) Pulmonary hypertension: Status: Acute #Altered mental status-drug withdrawal/hypoxia/psychiatric #Hypoxic respiratory failure secondary to ARDS-secondary to pneumonia/fluid overload secondary to amphetamine abuse #Aspiration of foreign body-possible cause of postobstructive pneumonia #COPD exacerbation in patient with nicotine dependence #Moderate pulmonary hypertension with RVSP 45 to 50 mmHg and mild TR on echo.LV dilated. #Significant psychiatric history, schizoaffective disorder, bipolar, drug abuse #History of GERD #History of PVD with claudication -Intubated 05/09/2021 and connected to mechanical ventilator currently on CMV mode -Sedated with fentanyl, propofol, Versed and paralyzed-completed 2 proning sessions -Plan is to taper off sedation and wake the patient -Today ABG 7.4 8/64/28 on CMV 450/10/40 % -CT chest revealed hazy bilateral pulmonary opacities, with consolidation in the left lower lobe. Findings may represent community-acquired pneumonia versus COVID-19. Evaluation of pulmonary arteries is somewhat limited secondary to respiratory motion. No pulmonary embolism. -S/p bronchoscopy 05/09/2021 revealed a foreign body in RML-later retrieved with therapeutic bronchoscope 10 mm x 5 mm popcorn kernel -BAL positive for strep agalactiae group B-currently on vancomycin; DC'd imip enem -We will discontinue Levaquin after 7 days-started 05/11/2021 -BAL galactomannan, beta D glucan, PCP,-pending -Covid PCR x2 --we will discontinue dexamethasone; started on IV Solu-Medrol 40 every 8 for COPD exacerbation and will gradually taper down based on clinical response; -Also bronchoscopy showed significant excessive dynamic airway compression probably contributing to his airway constriction while taking of sedation -Continue DuoNeb every 4 scheduled nebulization and Pulmicort 0.5 mg twice daily. -Patient also receiving Seroquel 600 p.o. at bedtime, fluoxetine 80 mg p.o. daily, BuSpar 10 mg every 12 hours; Wellbutrin 150 p.o. every 12, psychiatry consulted the patient was intubated and sedated- reconsult once patient is extubated -I/O 77 cc over last 24 hours-Lasix 20 mg -monitor I&O to keep net even - BNP 1057; Echo 05/09/2021 LV dilated cannot rule out wall motion abnormalities. Moderate pulmonary hypertension with normal RV size and function. RVSP 45 to 50 mmHg and mild TR -U tox positive for amphetamines -Sugars moderately controlled -Started tube feeds @15 mL/h-increase to 30 mL/h -bowel regimen senna and lactulose -GI prophylaxis Protonix -DVT prophylaxis Lovenox -Prognosis guarded -Recently lost her daughter for fentanyl overdose, another daughter lives in [facility] Recommendations conveyed to hospitalist, RN, RT aking care of the patient We will taper off paralytic and sedation and awakening trial, followed by breathing trials Attestations Medical Necessity Statement*: AMS and acute hypoxic respiratory failure secondary to ARDS due to pneumonia/fluid overload due to amphetamine use Time Spent in Patient Care: Greater than 35 minutes (>than 50% of time spent in counselling and/or direct pt care on unit) . Critical Care Time: The high probability of a clinically significant, sudden or life threatening deterioration of the patient's [neurological, pulmonary, cardiac] system(s) required my full and direct attention, intervention and personal management. The critical care time is as shown. This time is in addition to time spent performing any reported procedures but includes the following: [x] Data and vital sign review and interpretation [x] Patient assessment, examination and intervention [x] Documentation [x] Medication orders and management Critical Care Time (min): 36 Coding Level of Care Code Established Pt Acute Registered Representative for Chg Fwd Patient Type Established History Comprehensive Exam Comprehensive Medical Decision Making High Complexity Diagnoses Respiratory failure with hypoxia J96.01 Chronicity: acute ARDS (adult respiratory distress syndrome) J80 Acute encephalopathy G93.40 Pneumonia J18.9 Laterality: bilateral Lung location: unspecified part of lung Pneumonia type: due to unspecified organism COPD exacerbation J44.1 PVD (peripheral vascular disease) with claudication I73.9 GERD (gastroesophageal reflux disease) K21.9 Esophagitis presence: without esophagitis Anxiety F41.9 Nicotine dependence, cigarettes, with other nicotine-induced disorders F17.218 Aspiration of foreign body in respiratory tract T17.908A Encounter type: initial encounter Amphetamine addiction F15.20 Pulmonary hypertension I27.20 Time Spent (min) 36
[2021-05-15] VITALS (68 sets, daily range): BP systolic 107–164; BP diastolic 61–104; PULSE 52–80; RESP 14–18; TEMP 36.6–37.2; O2SAT 90–98; BMI 37.8
[2021-05-15] MEDS: BuSPIRONE 10 mg Tablet PO ×2 (01:58→13:06)
[2021-05-15] MEDS: vancomycin 1,250 MG/250 ML PIGGYBACK 250 MG IV ×3 (02:03→17:59)
[2021-05-15] MEDS: dexmedeTOMIDine 0.9 % NaCL 400 MCG/100 ML PREMIX 13.74 MCG IV ×3 (03:19→18:19)
[2021-05-15] MEDS: propofol 1,000 MG/100 ML INJ 34.02 MG IV ×5 (03:19→21:48)
[2021-05-15] MEDS: ipratropium-albuterol 3 mL Neb INHALATION ×6 (03:31→23:07)
[2021-05-15 04:58] LABS: ABG PCO2 43.8 mmHg (35-45); Arterial Blood Gas Hematocrit 25.1 % (37-47); Base Excess ABG 2.2 mmol/L (-2.0-2.0); Blood Gas Allen Test Pos; Blood Gas Sample Type Arterial; HCO3 ABG 27.3 mmol/L (22-26); PO2 ABG 70.4 mmHg (80.0-100.0)
[2021-05-15 04:59] LABS: Blood Gas Sample Site Radial, right; Oxygen Device VENT
[2021-05-15 05:06] LABS: Hematocrit 34.2 % (37.0-47.0); Hemoglobin 11.1 g/dL (11.5-15.3); Mean Corpuscular HGB Conc 32.5 g/dL (30.0-36.0); Mean Corpuscular Hemoglobin 30.1 pg (28.0-34.0); Mean Corpuscular Volume 92.7 fl (81-99); Mean Platelet Volume 8.8 fL (7.4-10.4); Platelet Count 394 10^3/cmm (130-400); Red Blood Count 3.69 10^6/uL (4.1-5.3); Red Cell Distribution Width 13.2 % (12.1-15.1)
[2021-05-15] MEDS: FUROsemide 20 mg Tablet PO (05:11)
[2021-05-15] MEDS: enoxaparin 40 mg/0.4 mL Syringe SUBCUT (05:11)
[2021-05-15 05:32] LABS: Alanine Aminotransferase 16 U/L (0-33); Albumin Level 3.6 g/dL (3.5-5.2); Alkaline Phosphatase 96 IU/L (35-105); Anion Gap 15.3 (5-19); Aspartate Amino Transferase 15 U/L (0-32); Blood Urea Nitrogen 18 mg/dL (6-20); Calcium 9.1 mg/dL (8.5-10.5); Carbon Dioxide 25 mmol/L (22-29); Chloride 97 mmol/L (98-107); Creatinine Clr Calc Pharmacy 148.7458; Globulin 3.3 g/dL (1.3-4.6); Glomerular Filtration Rate 126.3 mL/min (90-130); Glucose 190 mg/dL (65-115); Osmolality Calculated 283 mOsm/kg (285-295); Potassium 4.3 mmol/L (3.5-5.1); Sodium 133 mmol/L (136-145); Total Bilirubin 0.2 mg/dL (0.15-1.2); Total Protein 6.9 g/dL (6.6-8.7)
[2021-05-15 05:37] LABS: Slide Review Slide Review Perform
[2021-05-15 05:38] LABS: Absolute Neutrophil 10.1 10^3/cmm (1.4-6.5); Absolute Segmented Neutrophil 9.2 10/cmm (1.6-7.1); Band Neutrophils Absolute 0.8 10^3/cmm (0.0-1.2); Eosinophils 0 %; Lymphocytes 9 %; Lymphocytes Absolute 1.3 10^3/cmm (1.2-3.4); Monocytes Absolute 0.7 10^3/cmm (0.1-0.6); Platelet Estimate Normal (Normal); Segmented Neutrophils 77 %; Total Cells Counted 100 (0-100)
--- NOTE | 2021-05-15 06:59 | XR_ITS ---
WS: [id number] XR chest 1V portable [id number] REASON FOR EXAM: pneumonia FINDINGS: Endotracheal tube, nasogastric tube, and right jugular central venous line remain in proper position. No change in the bilateral pulmonary infiltrates and consolidation in the left lower lung. XR/XR chest 1V portable [id number] IMPRESSION: Stable abnormal chest.
--- NOTE | 2021-05-15 07:15 | PC.NURSE ---
Shift Note Frequent safety and comfort rounds continue. Orders and/or nursing care completed as indicated. Patient monitored for response to intervention and treatment(s). The patient remains intubated and sedated with fentanyl, propofol, and precedex drips. Sedation was titrated up due to the patient having several coughing episodes during the night. Urine output was 1,350 mL and the patient has yet to have a bowel movement. The patient was observed to have a strong cough and gag reflex, and responds to localized pain. The patient does not follow commands. Heart rhythm remained sinus odalis during the shift and the blood pressure stayed within normal limits.
[2021-05-15] MEDS: budesonide 0.5 mg/2 mL Neb INHALATION ×2 (07:49→20:32)
[2021-05-15] MEDS: lactulose oral liq 20 gm/30 mL UDC 10 GM PO ×2 (08:16→20:06)
[2021-05-15] MEDS: buPROPion SR (12 HR) 150 mg Tablet PO ×2 (08:18→20:07)
[2021-05-15] MEDS: lamoTRIgine 100 mg Tablet 150 MG PO (08:18)
[2021-05-15] MEDS: fluoxetine 20 mg Capsule 80 MG PO (08:18)
[2021-05-15] MEDS: pantoprazole 40 mg SDV IVP (08:19)
--- NOTE | 2021-05-15 08:30 | PC.NURSE ---
Patient drips are as follows: Propofol 50 Precedex 0.5 Fentanyl 50 All are going into patient's central line located in her in her right internal jugular.
--- NOTE | 2021-05-15 08:30 | PC.NURSE ---
Medication Administration Placement of OG tube confirmed by xray and auscultation of the stomach. Feeding stopped. Residual amount of 5mL of fluid, then added back into OG tube. 100 mL of water inserted into the patient's OG tube then 150 mL of fluids and medications. Medications were then flushed with 100 mL of water and tube feeding was restarted at 15 mL/hour. Patient tolerated well. Will continue to monitor.
[2021-05-15] MEDS: artificial tears Op Oint 3.5 gm 1 APPLIC EYE-BOTH (08:44)
--- NOTE | 2021-05-15 09:09 | PC.CHAP ---
Pastoral Care Encounter/Spiritual Assessment Type of Contact [] Declined senior producer visit [] Patient/Family/Request visit [] Outpatient visit [] Follow-up visit [] Physician referral [] Code/Alert [x] Routine visit [] Staff referral [] Actively dying [x] Patient sleeping [] Family support [] [] Out of room [] Palliative care [] [] Receiving care in room [] Pre-surgical visit [] Trauma [] Long length of stay [x] ICU visit [] Other: Relational/Emotional Strength [] Patient feels connected with others/family/visitors/staff [] Distress [] Loneliness/isolation [] Abandonment Spirituality of Patient [] Person of Love [] Attends Quaker of their Love [] Believes in Prayer [] Reads Bible or Protestant materials [] There are Spiritual issues to be addressed Teacher Lip Reading Interventions [x] Prayer [] Active listening [] Non-anxious presence [] Spiritual/emotional support [] Crisis/trauma care [] Spiritual counseling [] Bereavement support [] Provided bereavement packet [] Provided Bible/devotional materials [] Provided toy/stuffed animal, coloring book to patient or family member [] Provided Communion [] Anointing/[place] [] Salvation [x] Completed spiritual assessment [] Other: Impact on Illness or Injury [] Angry [] Fearful [] Anxious [] Often cries [] Exhaustion [] Unable to work [] Unable to attend caodaism [] Unable to walk/stand [] Unable to read [] Unable to drive [] Unable to eat/drink [] Unable to sleep [] Unable to be with family [] Patient intubated [] Other: Summary Time spent with patient
[2021-05-15 09:12] LABS: MTB Source SPUTUM
--- NOTE | 2021-05-15 10:28 | PM.PN ---
Subjective Subjective: Interval history: -Patient seen at bedside today -Reduce dose of her psychiatric medications and will attempt to wean her off sedation and continue awakening trial -EEG yesterday showed profuse diffuse swelling consistent with diffuse brain dysfunction possibly due to sedation or toxic or metabolic cause. No specific epileptiform features seen, great deal of artifact due to constant. -Recommended to do lidocaine nebulization patient has continuous cough -Other labs and imaging reviewed Medications: Reviewed: Yes Vitals/I&O/Wt Last Vital Signs Temp 98.9 F 05/15/21 08:00 Pulse 59 L 05/15/21 10:00 Resp 17 05/15/21 10:26 BP 138/90 05/15/21 10:00 Pulse Ox 93 05/15/21 10:26 05/14/21 05/15/21 05/15/21 22:59 06:59 14:59 Intake Total 874.579 / 1563.396 921.428 / 2484.824 110.206 / 110.206 Output Total 1600 / 3300 1350 / 4650 625 / 625 Balance -725.421 / -1736.604 -428.572 / -2165.176 -514.794 / -514.794 Weight last 48 hrs Weight 234 lb 9 oz Weight 232 lb 9 oz Physical Exam Narrative: EXAM NARRATIVE: General: lying in bed,, normal in size. HEENT:NCAT, PERRLA, EOMI Neck: Supple Lungs: Bilateral air entry present with diffuse coarse rhonchi Heart: s1/s2, RRR Abd: soft, NT, ND, BS + Normoactive Extremities: No edema; right BKA amputated RUG SCRATCHER: sedated and limited RUG SCRATCHER exam possible. SKIN: no rash LDA: # CVC: Right internal jugular central line 05/09/2021 # [place]: 05/09/2021 Urinary Catheter Management^: 2-way Urethral: Cath Placed During This Visit: yes Reason for Continuing Indwelling Catheter: Accurate Measurement of Urinary Output in Critically Ill Patients Urinary Catheter Date of Insertion: 05/09/21 Urinary Catheter Time of Insertion: 05:30 Data : 05/16/21 04:15 05/16/21 04:15 A&P Assessment and plan (1) Respiratory failure with hypoxia: Status: Acute Qualifiers: Chronicity: acute Qualified Code(s): J96.01 - Acute respiratory failure with hypoxia (2) ARDS (adult respiratory distress syndrome): Status: Acute (3) Acute encephalopathy: Status: Acute (4) Pneumonia: Status: Acute Qualifiers: Laterality: bilateral Lung location: unspecified part of lung Pneumonia type: due to unspecified organism Qualified Code(s): J18.9 - Pneumonia, unspecified organism (5) COPD exacerbation: Status: Acute (6) PVD (peripheral vascular disease) with claudication: Status: Acute (7) GERD (gastroesophageal reflux disease): Status: Acute Qualifiers: Esophagitis presence: without esophagitis Qualified Code(s): K21.9 - Gastro-esophageal reflux disease without esophagitis (8) Anxiety: Status: Acute (9) Nicotine dependence, cigarettes, with other nicotine-induced disorders: Status: Acute (10) Aspiration of foreign body in respiratory tract: Status: Acute Qualifiers: Encounter type: initial encounter Qualified Code(s): T17.908A - Unspecified foreign body in respiratory tract, part unspecified causing other injury, initial encounter (11) Amphetamine addiction: Status: Acute (12) Pulmonary hypertension: Status: Acute #Altered mental status-drug withdrawal/hypoxia/psychiatric #Hypoxic respiratory failure secondary to ARDS-secondary to pneumonia/fluid overload secondary to amphetamine abuse #Aspiration of foreign body-possible cause of postobstructive pneumonia #COPD exacerbation in patient with nicotine dependence #Moderate pulmonary hypertension with RVSP 45 to 50 mmHg and mild TR on echo.LV dilated. #Significant psychiatric history, schizoaffective disorder, bipolar, drug abuse #History of GERD #History of PVD with claudication -Intubated 05/09/2021 and connected to mechanical ventilator currently on CMV mode -Sedated with fentanyl, propofol, Versed and paralyzed-completed 2 proning sessions -Plan is to taper off sedation and wake the patient -EEG yesterday showed profuse diffuse swelling consistent with diffuse brain dysfunction possibly due to sedation or toxic or metabolic cause. No specific epileptiform features seen, great deal of artifact due to constant. -Today ABG 7.4 0/43/70/27/on CMV 450/40%/8 -CT chest revealed hazy bilateral pulmonary opacities, with consolidation in the left lower lobe. Findings may represent community-acquired pneumonia versus COVID-19. Evaluation of pulmonary arteries is somewhat limited secondary to respiratory motion. No pulmonary embolism. -S/p bronchoscopy 05/09/2021 revealed a foreign body in RML-later retrieved with therapeutic bronchoscope 10 mm x 5 mm popcorn kernel -BAL positive for strep agalactiae group B-currently on vancomycin; DC'd imipenem -We will discontinue Levaquin after 7 days-started 05/11/2021 -BAL galactomannan, beta D glucan, PCP,-pending -Covid PCR x2 --we will discontinue dexamethasone; started on IV Solu-Medrol 40 every 8 for COPD exacerbation and will gradually taper down based on clinical response; -Also bronchoscopy showed significant excessive dynamic airway compression probably contributing to his airway constriction while taking off sedation -Continue DuoNeb every 4 scheduled nebulization and Pulmicort 0.5 mg twice daily. -Patient also receiving Seroquel 600 p.o. at bedtime, fluoxetine 80 mg p.o. daily, BuSpar 10 mg every 12 hours; Wellbutrin 150 p.o. every 12, psychiatry consulted the patient was intubated and sedated- reconsult once patient is extubated -I/O -2.1 L over last 24 hours-Lasix 20 mg -monitor I&O to keep net even - BNP 1057; Echo 05/09/2021 LV dilated cannot rule out wall motion abnormalities. Moderate pulmonary hypertension with normal RV size and function. RVSP 45 to 50 mmHg and mild TR -U tox positive for amphetamines -Sugars moderately controlled -Started tube feeds,increase to 30 mL/h -bowel regimen senna and lactulose -GI prophylaxis Protonix -DVT prophylaxis Lovenox -Prognosis guarded -Recently lost her daughter for fentanyl overdose, another daughter lives in [place] Recommendations conveyed to hospitalist, RN, RT aking care of the patient We will taper off paralytic and sedation and awakening trial, followed by breathing trials Attestations Medical Necessity Statement*: AMS and acute hypoxic respiratory failure secondary to ARDS due to pneumonia/fluid overload due to amphetamine use Time Spent in Patient Care: Greater than 35 minutes (>than 50% of time spent in counselling and/or direct pt care on unit). Critical Care Time: The high probability of a clinically significant, sudden or life threatening deterioration of the patient's [neurological, pulmonary, cardiac] system(s) required my full and direct attention, intervention and personal management. The critical care time is as shown. This time is in addition to time spent performing any reported procedures but includes the following: [x] Data and vital sign review and interpretation [x] Patient assessment, examination and intervention [x] Documentation [x] Medication orders and management Critical Care Time (min): 42 Coding Level of Care Code Established Pt Acute Stone Polisher Hand for Chg Fwd Patient Type Established History Comprehensive Medical Decision Making High Complexity Diagnoses Respiratory failure with hypoxia J96.01 Chronicity: acute ARDS (adult respiratory distress syndrome) J80 Acute encephalopathy G93.40 Pneumonia J18.9 Laterality: bilateral Lung location: unspecified part of lung Pneumonia type: due to unspecified organism COPD exacerbation J44.1 PVD (peripheral vascular disease) with claudication I73.9 GERD (gastroesophageal reflux disease) K21.9 Esophagitis presence: without esophagitis Anxiety F41.9 Nicotine dependence, cigarettes, with other nicotine-induced disorders F17.218 Aspiration of foreign body in respiratory tract T17.908A Encounter type: initial encounter Amphetamine addiction F15.20 Pulmonary hypertension I27.20 Time Spent (min) 42
--- NOTE | 2021-05-15 10:33 | P.PN_ITS ---
Subjective Subjective: Interval history: Intubated, sedated. Does not appear in discomfort. No seizure-like activity. Additional attempts at weaning sedation today. Vitals/I&O/Wt Last Vital Signs Temp 98.9 F 05/15/21 08:00 Pulse 59 L 05/15/21 10:00 Resp 17 05/15/21 10:26 BP 138/90 05/15/21 10:00 Pulse Ox 93 05/15/21 10:26 05/14/21 05/15/21 05/15/21 22:59 06:59 14:59 Intake Total 874.579 / 1563.396 921.428 / 2484.824 142.578 / 142.578 Output Total 1600 / 3300 1350 / 4650 625 / 625 Balance -725.421 / -1736.604 -428.572 / -2165.176 -482.422 / -482.422 Weight last 48 hrs Weight 106.396 kg Weight 105.489 kg Physical Exam Const: GENERAL APPEARANCE: patient mechanically ventilated OTHER: Intu bated, sedated. HENMT: COMMON NORMALS: oropharynx normal Neck/C-Spine: COMMON NORMALS: no JVD Resp: AUSCULTATION: diminished lung sounds (Improving) Cardio: COMMON NORMALS: no JVD, regular rhythm, S1 normal heart sound present, S2 normal heart sound present and No murmurs present (Cardio) RHYTHM: regular rhythm HEART SOUNDS: S1 normal heart sound present and S2 normal heart sound present GI: COMMON NORMALS: Normal to inspection, nondistended, normoactive bowel s ounds present and Soft to palpation PALPATION: Yes Soft to palpation Extremity: COMMON NORMALS: no joint enlargement and no pedal edema OTHER: Right BKA Neuro: COMMON NORMALS: moves all extremities Skin: COMMON NORMALS: no rashes or lesions noted GENERAL SKIN EXAM: no rashes or lesions noted Urinary Catheter Management^: 2-way Urethral: Cath Placed During This Visit: yes Reason for Continuing Indwelling Catheter: Accurate Measurement of Urinary Output in Critically Ill Patients Urinary Catheter Date of Insertion: 05/09/21 Urinary Catheter Time of Insertion: 05:30 Data : 05/15/21 04:55 05/15/21 04:55 A&P Assessment and plan (1) Respiratory failure with hypoxia: Additional attempts today to wean sedation. Reassess mental status. Yesterday decreased Seroquel dose to 300 mg nightly. Persistent delirium/encephalopathy. EEG obtained, generalized slowing, no epileptiform discharges noted. Decrease quetiapine dose tonight. Attempt waking trial again in the morning. Continue attempts to wean off mechanical ventilation. Group B strep growing on sputum culture. Continue empiric antibiotic coverage with Levaquin, vancomycin. Pending fungal, mycobacterial studies. Breathing treatments. Inhaled steroid. Could not reach her daughter for update. Status: Acute Qualifiers: Chronicity: acute Qualified Code(s): J96.01 - Acute respiratory failure with hypoxia (2) Pneumonia: As above. Secondary to postobstructive pneumonia, possible aspiration pneumonitis, superimposed on interstitial lung disease, emphysema Intubated 05/09/2021 Status post bronchoscopy, removal of foreign body right middle lobe Respiratory viral panel negative. Negative galactomannan, pending beta D glucan, PCP, fungal, mycobacterial studies. Status: Acute Qualifiers: Laterality: bilateral Lung location: unspecified part of lung Pneumonia type: due to unspecified organism Qualified Code(s): J18.9 - Pneumonia, unspecified organism (3) COPD exacerbation: Continue Solu-Medrol, budesonide. Nebs. Antibiotics. Status: Acute (4) Acute encephalopathy: Elevated risk of delirium. On a number of psychiatric medications. With possible substance use disorder, this is positive for amphetamine. Status: Acute (5) Interstitial lung disease: Status: Acute Additional A&P Information Cardiac echocardiogram, left ventricular appears to be dilated, diastolic function is normal, moderate pulmonary pretension Hep C positive Right central line in place Hyperammonemia: Minimal, started lactulose Attestations Medical Necessity Statement*: Continue waking trials with weaning sedation, weaning down mechanical ventilator support. Coding Level of Care Code Acute Dog Or Horse Racing Official for [facility] Fwd Exam Comprehensive Diagnoses Respiratory failure with hypoxia J96.01 Chronicity: acute Pneumonia J18.9 Laterality: bilateral Lung location: unspecified part of lung Pneumonia type: due to unspecified organism COPD exacerbation J44.1 Acute encephalopathy G93.40 Interstitial lung disease J84.9
--- NOTE | 2021-05-15 11:00 | PC.NURSE ---
Patient currently being weaned off of sedation medications to assess the mental status and level of consciousness. Propofol is being weaned down by protocol of 5mcg every 5 minutes as tolerated by the patient. Weaned down to 15mcg currently and starting rate was 50mcg. Patient became restless, so weaning process has been slowed. Will continue to monitor.
--- NOTE | 2021-05-15 11:16 | PC.NUTR ---
Addendum entered by Chasidy Serrano 05/15/21 16:11: With Current rate of Propofol at 27.22 mls/hr, recommend goal rate of Jevity 1.2 @ 30 mls/hr, with FW flushes per MD discretion. Original Note: If unable to wean Pt off sedation and if medically appropriate to continue with TF, recommend increasing current TF of Jevity 1.2@15 ml/hr to new goal rate of Jevity 1.2@ 35 ml/hr, advancing as tolerated, with H2O flushes per MD discretion. Further details found in full RD assessment.
--- NOTE | 2021-05-15 12:36 | PC.NURSE ---
[address] Fernández. Reported that patient has become restless with decreased sedation. Patient thrashing her head, coughing, and biting her ET tube. Reported elevated blood pressure and decreased O2 sat. Patient is not following commands. Orders to turn sedation back on.
--- NOTE | 2021-05-15 13:15 | PC.NURSE ---
Medication Administration Patient tube feeding stopped, patient OG tube placement check by auscultation of the stomach. Patient residual checked and no residual noted. Patient OG tube flushed with 50 mL of water, 50 mL of medications and water, then 50 mL more of water. Patient tolerated well. Will continue to monitor.
[2021-05-15] MEDS: HYDROmorphone 1 mg/mL INJ 1 mL IVP ×2 (14:46→22:22)
[2021-05-15] MEDS: propofol 1,000 MG/100 ML INJ 27.22 MG IV (15:33)
--- NOTE | 2021-05-15 15:40 | PC.NURSE ---
1439 Dr. Lowryr at bedside. Assessed neuro status. Pupils sluggish and dilated. Discussed medications and plan of care. Orders for IV Dilaudid.
[2021-05-15] MEDS: levofloxacin-dextrose 5 % 750 MG/150 ML PREMIX 100 MG IV (18:01)
--- NOTE | 2021-05-15 18:42 | PC.NURSE ---
All IVP medications administered per Anne Marie Cardona RN
--- NOTE | 2021-05-15 18:59 | PC.NURSE ---
All charting by MEG Mann reviewed and confirmed.
[2021-05-15] MEDS: quetiapine 300 mg Tablet PO (20:07)
[2021-05-15] MEDS: sennosides 8.6 mg Tablet PO (20:07)
[2021-05-16] VITALS (67 sets, daily range): BP systolic 98–140; BP diastolic 59–85; PULSE 53–77; RESP 11–26; TEMP 36.6–37.1; O2SAT 87–95
[2021-05-16] MEDS: propofol 1,000 MG/100 ML INJ 34.02 MG IV ×4 (01:13→21:31)
[2021-05-16] MEDS: BuSPIRONE 10 mg Tablet PO ×2 (01:13→13:39)
[2021-05-16] MEDS: vancomycin 1,250 MG/250 ML PIGGYBACK 250 MG IV ×2 (02:04→15:49)
[2021-05-16] MEDS: dexmedeTOMIDine 0.9 % NaCL 400 MCG/100 ML PREMIX 10.99 MCG IV ×3 (02:10→21:31)
[2021-05-16] MEDS: ipratropium-albuterol 3 mL Neb INHALATION ×6 (03:59→23:33)
[2021-05-16 05:02] LABS: Basophils % 0.2 %; Hemoglobin 11.4 g/dL (11.5-15.3); Lymphocytes % 8.1 %; Mean Corpuscular HGB Conc 31.7 g/dL (30.0-36.0); Mean Corpuscular Hemoglobin 29.5 pg (28.0-34.0); Mean Corpuscular Volume 93.3 fl (81-99); Monocytes # 0.6 10^3/uL (0.2-0.9); Neutrophils # 10.25 10^3/uL (1.8-7.7); Neutrophils % 81.8 %; Nucleated Red Blood Cells % 0 %; Platelet Count 340 10^3/cmm (130-400); Red Blood Count 3.86 10^6/uL (4.1-5.3); Red Cell Distribution Width 13.2 % (12.1-15.1); White Blood Count 12.5 10^3/uL (4.0-10.0)
[2021-05-16] MEDS: enoxaparin 40 mg/0.4 mL Syringe SUBCUT (05:23)
[2021-05-16] MEDS: HYDROmorphone 1 mg/mL INJ 1 mL IVP ×3 (05:23→21:05)
[2021-05-16] MEDS: FUROsemide 20 mg Tablet PO (05:23)
[2021-05-16 05:32] LABS: Alanine Aminotransferase 20 U/L (0-33); Albumin Level 3.5 g/dL (3.5-5.2); Alkaline Phosphatase 94 IU/L (35-105); Anion Gap 14.4 (5-19); Aspartate Amino Transferase 14 U/L (0-32); Blood Urea Nitrogen 18 mg/dL (6-20); Calcium 9.2 mg/dL (8.5-10.5); Carbon Dioxide 25 mmol/L (22-29); Chloride 100 mmol/L (98-107); Creatinine Clr Calc Pharmacy 149.4397; Globulin 3.2 g/dL (1.3-4.6); Glomerular Filtration Rate 126.3 mL/min (90-130); Glucose 204 mg/dL (65-115); Osmolality Calculated 288 mOsm/kg (285-295); Potassium 4.4 mmol/L (3.5-5.1); Sodium 135 mmol/L (136-145); Total Bilirubin 0.2 mg/dL (0.15-1.2); Total Protein 6.7 g/dL (6.6-8.7)
--- NOTE | 2021-05-16 06:00 | PC.NURSE ---
Shift Note Frequent safety and comfort rounds continue. Orders and/or nursing care completed as indicated. Patient monitored for response to intervention and treatment(s). Patient remains vented and sedated. There were no significant changes during the shift. The patient is still on precedex, propofol, and fentanyl drips. Oxygen saturation has been hovering in the low 90's. Urine output was 1,450 mL for the shift. The patient will respond to painful stimuli, and spontaneously open her eyes.
--- NOTE | 2021-05-16 07:04 | PC.NURSE ---
Gave report to Woody.
[2021-05-16] MEDS: budesonide 0.5 mg/2 mL Neb INHALATION ×2 (08:05→20:06)
[2021-05-16 08:23] LABS: P. Jirovecii DNA QL PCR NOT DETECTED
[2021-05-16] MEDS: fluoxetine 20 mg Capsule 80 MG PO (08:42)
[2021-05-16] MEDS: lactulose oral liq 20 gm/30 mL UDC 10 GM PO ×2 (08:43→20:45)
[2021-05-16] MEDS: lamoTRIgine 100 mg Tablet 150 MG PO (08:44)
[2021-05-16] MEDS: buPROPion SR (12 HR) 150 mg Tablet PO ×2 (08:44→20:46)
--- NOTE | 2021-05-16 08:45 | PC.NURSE ---
Medication Administration Placement of OG tube confirmed by xray and auscultation of the stomach. Feeding stopped. Residual amount of 5mL of fluid, then added back into OG tube. 100 mL of water inserted into the patient's OG tube then 150 mL of fluids and medications. Medications were then flushed with 100 mL of water and tube feeding was restarted at 30 mL/hour. Patient tolerated well. Will continue to monitor.
[2021-05-16] MEDS: pantoprazole 40 mg SDV IVP (08:46)
[2021-05-16] MEDS: artificial tears Op Oint 3.5 gm 1 APPLIC EYE-BOTH ×2 (08:51→15:49)
[2021-05-16 10:48] LABS: Vancomycin Trough 22.7 ug/mL (10-15)
--- NOTE | 2021-05-16 11:24 | PC.NURSE ---
Vancomycin Patient Vancomycin trough elevated. Pharmacy notified. Spoke with pharmacistJavier. Vancomycin held at this time, awaiting further orders.
--- NOTE | 2021-05-16 11:27 | PC.CHAP ---
Pastoral Care Encounter/Spiritual Assessment Type of Contact [] Declined ground support equipment fitter visit [] Patient/Family/Request visit [] Outpatient visit [] Follow-up visit [] Physician referral [] Code/Alert [x] Routine visit [] Staff referral [] Actively dying [x] Patient sleeping [] Family support [] [] Out of room [] Palliative care [] [] Receiving care in room [] Pre-surgical visit [] Trauma [] Long length of stay [x] ICU visit [x] Other: entered room non responsive.. Relational/Emotional Strength [] Patient feels connected with others/family/visitors/staff [] Distress [] Loneliness/isolation [] Abandonment Spirituality of Patient [] Person of Love [] Attends Jainism of their Love [] Believes in Prayer [] Reads Bible or Anabaptist materials [] There are Spiritual issues to be addressed Medical Lab Tech Instructor Interventions [x] Prayer [] Active listening [] Non-anxious presence [] Spiritual/emotional support [] Crisis/trauma care [] Spiritual counseling [] Bereavement support [] Provided bereavement packet [] Provided Bible/devotional materials [] Provided toy/stuffed animal, coloring book to patient or family member [] Provided Communion [] Anointing/[place] [] Salvation [x] Completed spiritual assessment [] Other: Impact on Illness or Injury [] Angry [] Fearful [] Anxious [] Often cries [] Exhaustion [] Unable to work [] Unable to attend uatsdin [] Unable to walk/stand [] Unable to read [] Unable to drive [] Unable to eat/drink [] Unable to sleep [] Unable to be with family [] Patient intubated [] Other: Summary Time spent with patient
[2021-05-16] MEDS: lidocaine 4% PF 5 mL INJ 4 ML INHALATION (12:36)
[2021-05-16] MEDS: propofol 1,000 MG/100 ML INJ 27.22 MG IV ×2 (13:39→17:31)
--- NOTE | 2021-05-16 14:09 | PC.NURSE ---
Addendum entered by MEG Thomas 05/16/21 14:11: This was performed with the administration of medications at 13:39 on 05/16/21 Original Note: Medication Administration Placement of OG tube confirmed by xray and auscultation of the stomach. Feeding stopped. Residual amount of 5mL of fluid, then added back into OG tube. 60 mL of water inserted into the patient's OG tube then 20 mL of fluids and medications. Medications were then flushed with 60 mL of water and tube feeding was restarted at 15 mL/hour. Patient tolerated well. Will continue to monitor.
[2021-05-16 14:32] LABS: Quantiferon Mitogen 1.06 IU/mL; Quantiferon Nil 0.01 IU/mL; Quantiferon TB Gold NEGATIVE (NEGATIVE)
--- NOTE | 2021-05-16 14:36 | PM.PN ---
Subjective Subjective: Interval history: Intubated, sedated. Vitals/I&O/Wt Last Vital Signs Temp 98.5 F 05/16/21 10:00 Pulse 76 05/16/21 14:00 Resp 22 H 05/16/21 13:20 BP 127/77 05/16/21 14:00 Pulse Ox 87 L 05/16/21 14:00 05/15/21 05/16/21 05/16/21 22:59 06:59 14:59 Intake Total 1834.889 / 2412.000 1397.916 / 3809.916 314.917 / 314.917 Output Total 850 / 1475 1450 / 2925 850 / 850 Balance 984.889 / 937.000 -52.084 / 884.916 -535.083 / -535.083 Weight last 48 hrs Weight 106.396 kg Physical Exam Const: GENERAL APPEARANCE: patient mechanically ventilated OTHER: Intubated, sedated. HENMT: COMMON NORMALS: oropharynx normal Neck/C-Spine: COMMON NORMALS: no JVD Resp: COMMON NORMALS: clear to auscultation bilaterally AUSCULTATION: clear to auscultation bilaterally Cardio: COMMON NORMALS: no JVD, regular rhythm, S1 normal heart sound present, S2 normal heart sound present and No murmurs present (Cardio) RHYTHM: regular rhythm HEART SOUNDS: S1 normal heart sound present and S2 normal heart sound present GI: COMMON NORMALS: Normal to inspection, nondistended, normoactive bowel sounds present and Soft to palpation PALPATION: Yes Soft to palpation Extremity: COMMON NORMALS: no joint enlargement and no pedal edema OTHER: Right BKA Neuro: COMMON NORMALS: moves all extremities Skin: COMMON NORMALS: no rashes or lesions noted GENERAL SKIN EXAM: no rashes or lesions noted Urinary Catheter Management^: 2-way Urethral: Cath Placed During This Visit: yes Reason for Continuing Indwelling Catheter: Accurate Measurement of Urinary Output in Critically Ill Patients Urinary Catheter Date of Insertion: 05/09/21 Urinary Catheter Time of Insertion: 05:30 Data : 05/16/21 04:15 05/16/21 04:15 A&P Assessment and plan (1) Respiratory failure with hypoxia: So far unresolved encephalopathy has been a barrier to extubation. Attempted wean sedation again today. Continue attempts to wean off fentanyl entirely. Propofol, Precedex subsequently. Seroquel dose has been decreased to 300 mg nightly. Persistent delirium/encephalopathy. EEG obtained, generalized slowing, no epileptiform discharges noted. Continue attempts to wean off mechanical ventilation. Group B strep growing on sputum culture. Continue empiric antibiotic coverage with Levaquin, vancomycin. Pending fungal studies. Negative galactomannan. Negative QuantiFERON gold. Negative PCP induced sputum. Breathing treatments. Inhaled steroid. Could not reach her daughter for update. Status: Acute Qualifiers: Chronicity: acute Qualified Code(s): J96.01 - Acute respiratory failure with hypoxia (2) Pneumonia: As above. Secondary to postobstructive pneumonia, possible aspiration pneumonitis, superimposed on interstitial lung disease, emphysema Intubated 05/09/2021 Status post bronchoscopy, removal of foreign body right middle lobe Respiratory viral panel negative. Negative galactomannan, negative PCP induced sputum. Pending beta D glucan, fungal. Negative TB QuantiFERON gold mycobacterial studies. Status: Acute Qualifiers: Laterality: bilateral Lung location: unspecified part of lung Pneumonia type: due to unspecified organism Qualified Code(s): J18.9 - Pneumonia, unspecified organism (3) COPD exacerbation: Continue Solu-Medrol, budesonide. Nebs. Antibiotics. Status: Acute (4) Acute encephalopathy: Elevated risk of delirium. On a number of psychiatric medications. With possible substance use disorder, this is positive for amphetamine, but unconfirmed. Status: Acute (5) Interstitial lung disease: Status: Acute Additional A&P Information Cardiac echocardiogram, left ventricular appears to be dilated, diastolic function is normal, moderate pulmonary pretension Hep C positive Right central line in place Hyperammonemia: Minimal, started lactulose Attestations Medical Necessity Statement*: Continue admission for additional supportive care with ongoing delirium, continued weaning of sedation, mechanical ventilation. Coding Level of Care Code Acute Radiological Equipment Specialist 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 Diagnoses Respiratory failure with hypoxia J96.01 Chronicity: acute Pneumonia J18.9 Laterality: bilateral Lung location: unspecified part of lung Pneumonia type: due to unspecified organism COPD exacerbation J44.1 Acute encephalopathy G93.40 Interstitial lung disease J84.9
--- NOTE | 2021-05-16 17:40 | P.PN_ITS ---
Subjective Subjective: Interval history: -Patient seen at bedside today -Continues to taper off sedation and continue with awakening trial -Still appears confused and does not follow commands despite reducing psychiatric medications and minimizing sedation -Tolerated well MMV -We will obtain CT head to rule out any acute abnormality and if CT head is normal then I have to attempt extubation and see how patient does with high risk of reintubation -Other labs and imaging reviewed Medications: Reviewed: Yes Vitals/I&O/Wt Last Vital Signs Temp 98.5 F 05/16/21 10:00 Pulse 69 05/16/21 16:30 Resp 11 L 05/16/21 15:52 BP 116/76 05/16/21 16:30 Pulse Ox 91 05/16/21 16:30 05/16/21 05/16/21 05/16/21 06:59 14:59 22:59 Intake Total 1397.916 / 3809.916 314.917 / 314.917 618.5 / 933.417 Output Total 1450 / 2925 850 / 850 850 / 1700 Balance -52.084 / 884.916 -535.083 / -535.083 -231.5 / -766.583 Weight last 48 hrs Weight 234 lb 9 oz Physical Exam Narrative: EXAM NARRATIVE: General: lying in bed,, normal in size. HEENT:NCAT, PERRLA, EOMI Neck: Supple Lungs: Bilateral air entry present with diffuse coarse rhonchi Heart: s1/s2, RRR Abd: soft, NT, ND, BS + Normoactive Extremities: No edema; right BKA amputated BOILERMAKER FITTER: sedated and limited BOILERMAKER FITTER exam possible. SKIN: no rash LDA: # CVC: Right internal jugular central line 05/09/2021 # Alcantara: 05/09/2021 Urinary Catheter Management^: 2-way Urethral: Cath Placed During This Visit: yes Reason for Continuing Indwelling Catheter: Accurate Measurement of Urinary Output in Critically Ill Patients Urinary Catheter Date of Insertion: 05/09/21 Urinary Catheter Time of Insertion: 05:30 Data : 05/17/21 04:00 05/17/21 04:00 Other Labs: Laboratory Results WBC 9.4 10^3/uL (4.0-10.0) 05/17/21 04:00 RBC 3.55 10^6/uL (4.1-5.3) L 05/17/21 04:00 Hgb 10.6 g/dL (11.5-15.3) L 05/17/21 04:00 Hct 33.7 % (37.0-47.0) L 05/17/21 04:00 MCV 94.9 fl (81-99) 05/17/21 04:00 MCH 29.9 pg (28.0-34.0) 05/17/21 04:00 MCHC 31.5 g/dL (30.0-36.0) 05/17/21 04:00 RDW 13.3 % (12.1-15.1) 05/17/21 04:00 Plt Count 330 10^3/cmm (130-400) 05/17/21 04:00 MPV 9.0 fL (7.4-10.4) 05/17/21 04:00 Neut % (Auto) 74.3 % 05/17/21 04:00 Lymph % (Auto) 13.9 % 05/17/21 04:00 Campbell % (Auto) 8.1 % 05/17/21 04:00 Eos % (Auto) 0.0 % 05/17/21 04:00 Baso % (Auto) 0.2 % 05/17/21 04:00 Neut # (Auto) 7.02 10^3/uL (1.8-7.7) 05/17/21 04:00 Lymph # (Auto) 1.3 10^3/uL (0.8-4.8) 05/17/21 04:00 Campbell # (Auto) 0.8 10^3/uL (0.2-0.9) 05/17/21 04:00 Eos # (Auto) 0.0 10^3/uL (0.0-0.8) 05/17/21 04:00 Baso # (Auto) 0.0 10^3/uL (0.0-0.1) 05/17/21 04:00 Nucleated RBC % (auto) 0 % 05/17/21 04:00 Total Counted 100 (0-100) 05/15/21 04:55 Atypical Lymphs % 2.0 % (0-5) 05/15/21 04:55 Absolute Neutrophils 10.1 10^3/cmm (1.4-6.5) H 05/15/21 04:55 Segmented Neutrophils 77 % 05/15/21 04:55 Abs Segm Neuts (Man) 9.2 10/cmm (1.6-7.1) H 05/15/21 04:55 Band Neutrophils 7.0 % 05/15/21 04:55 Abs Band Neuts (Man) 0.8 10^3/cmm (0.0-1.2) 05/15/21 04:55 Absolute Lymphocytes 1.3 10^3/cmm (1.2-3.4) 05/15/21 04:55 Lymphocytes (Manual) 9 % 05/15/21 04:55 Monocytes (Manual) 6.0 % 05/15/21 04:55 Absolute Monocytes 0.7 10^3/cmm (0.1-0.6) H 05/15/21 04:55 Eosinophils (Manual) 0 % 05/15/21 04:55 Absolute Eosinophils 0.0 10^3/cmm (0.0-0.7) 05/15/21 04:55 Basophils (Manual) 0.0 % 05/15/21 04:55 Absolute Basophils 0.0 10^3/cmm (0.0-0.2) 05/15/21 04:55 Metamyelocytes 4.0 % 05/15/21 04:55 Nucleated RBCs # 0.0 /100WBC 05/17/21 04:00 Platelet Estimate Normal (Normal) 05/15/21 04:55 PT 15.00 SECONDS (12.1-14.9) H 05/12/21 03:30 INR 1.14 (0.8-1.2) 05/12/21 03:30 APTT 35.7 SECONDS (23.9-36.7) 05/07/21 00:15 Fibrinogen 562 mg/dL (174-498) H 05/07/21 00:15 D-Dimer 0.55 ug/mIFEU (0-0.59) 05/12/21 03:30 Specimen Type Arterial 05/17/21 05:56 Sample Site Radial, right 05/17/21 05:56 ABG pH 7.47 (7.35-7.45) H 05/17/21 05:56 ABG pCO2 39.4 mmHg (35-45) 05/17/21 05:56 ABG pO2 65.5 mmHg (80.0-100.0) L 05/17/21 05:56 ABG HCO3 28.4 mmol/L (22-26) H 05/17/21 05:56 ABG O2 Saturation 95.3 05/09/21 16:01 ABG Base Excess 4.3 mmol/L (-2.0-2.0) H 05/17/21 05:56 Darryl Test Pos 05/17/21 05:56 A-a O2 Gradient 71.9 mmHg (5-10) H 05/09/21 16:01 Hematocrit 37.0 % (37-47) 05/17/21 05:56 Hgb O2 Saturation 93.5 % (95-100) L 05/09/21 16:01 Carboxyhemoglobin 1.4 %THgb (0.4-20.1) 05/09/21 16:01 Methemoglobin 0.4 % (0.4-1.5) 05/09/21 16:01 Total Hemoglobin 11.0 g/dL (12-16) L 05/09/21 16:01 Sodium 138.0 mmol/L (131-143) 05/09/21 16:01 Potassium 4.3 mmol/L (3.5-5.0) 05/09/21 16:01 Glucose 186.0 mg/dL (70-115) H 05/09/21 16:01 Ionized Calcium 1.3 mmol/L (1.1-1.4) 05/09/21 16:01 Respiration Rate 18.0 % 05/14/21 04:50 O2 Delivery Device Vent 05/17/21 05:56 O2 Liters/Min 50.0 % 05/09/21 04:45 FiO2 40.0 % 05/17/21 05:56 Tidal Volume 0.45 05/14/21 04:50 PEEP 8.0 cmH20 05/17/21 05:56 CPAP 8.0 cmH20 05/17/21 05:56 Forensic Scientist ID Rafael 05/17/21 05:56 Sodium 136 mmol/L (136-145) 05/17/21 04:00 Potassium 3.8 mmol/L (3.5-5.1) 05/17/21 04:00 Chloride 99 mmol/L (98-107) 05/17/21 04:00 Carbon Dioxide 26 mmol/L (22-29) 05/17/21 04:00 Anion Gap 14.8 (5-19) 05/17/21 04:00 BUN 17 mg/dL (6-20) 05/17/21 04:00 Creatinine 0.4 mg/dL (0.5-0.9) L 05/17/21 04:00 GFR Calculation 163.4 mL/min (90-130) H 05/17/21 04:00 Glucose 164 mg/dL (65-115) H 05/17/21 04:00 Calculated Osmolality 287 mOsm/kg (285-295) 05/17/21 04:00 Lactate 1.4 mmol/L (0.5-2.2) 05/12/21 03:30 Calcium 8.9 mg/dL (8.5-10.5) 05/17/21 04:00 Phosphorus 3.0 mg/dL (2.5-4.5) 05/12/21 03:30 Magnesium 2.1 mg/dL (1.7-2.3) 05/12/21 03:30 Ferritin 277 ng/mL (15-150) H 05/07/21 00:15 Total Bilirubin 0.2 mg/dL (0.15-1.2) 05/17/21 04:00 AST 11 U/L (0-32) 05/17/21 04:00 ALT 17 U/L (0-33) 05/17/21 04:00 Alkaline Phosphatase 90 IU/L (35-105) 05/17/21 04:00 Ammonia 52 umol/L (11-51) H 05/12/21 03:30 Lactate Dehydrogenase 516 U/L (135-214) H 05/08/21 20:01 Creatine Kinase 40 U/L (26-192) 05/12/21 03:30 Troponin T Gen 5 ng/L Cancelled 05/07/21 00:15 Troponin T Baseline 6 ng/L (0-10) 05/11/21 10:30 Troponin T 120 Minute 6.00 ng/L (0-10) 05/11/21 12:45 Delta Troponin T 0 ABS# (0-10) 05/11/21 12:45 Troponin T Hi Sens 6Hr 6.00 ng/L (0-10) 05/11/21 16:20 Troponin T Hi Sens 6Hr Delta 0 ng/L (0-12) 05/11/21 16:20 C-Reactive Protein 65.8 mg/L (0.0-4.9) H 05/12/21 03:30 NT-Pro-B Natriuret Pep 153 pg/mL (0-125) H 05/12/21 03:30 Total Protein 6.2 g/dL (6.6-8.7) L 05/17/21 04:00 Albumin 3.4 g/dL (3.5-5.2) L 05/17/21 04:00 Globulin 2.8 g/dL (1.3-4.6) 05/17/21 04:00 Triglycerides 123 mg/dL (0-150) 05/13/21 03:10 Procalcitonin 0.15 ng/mL (0-0.5) 05/12/21 03:30 RSV Nasal Swab Not detected (Not Detected) 05/10/21 11:05 RSV Nasal Swab Int Cntl Not detected (Not Detected) 05/10/21 11:05 Vancomycin Trough 22.7 ug/mL (10-15) H 05/16/21 10:08 Urine Opiates Screen Negative ng/mL (Negative) 05/07/21 04:24 Ur Barbiturates Screen Negative ng/mL (Negative) 05/07/21 04:24 Ur Phencyclidine Scrn Negative ng/mL (Negative) 05/07/21 04:24 Ur Amphetamines Screen Positive ng/mL (Negative) H 05/07/21 04:24 U Benzodiazepines Scrn Negative ng/mL (Negative) 05/07/21 04:24 Urine Cocaine Screen Negative ng/mL (Negative) 05/07/21 04:24 U Marijuana (THC) Screen Negative ng/mL (Negative) 05/07/21 04:24 RPR Nonreactive (Nonreactive) 05/08/21 20:01 Adenovirus (PCR) Not detected (Not Detected) 05/10/21 11:05 Nasal/Oral COVID-19 PCR Not detected 05/08/21 18:30 Hepatitis A IgM Ab Non-reactive (Nonreactive) 05/07/21 00:15 Hep Bs Antigen Non-reactive (Nonreactive) 05/07/21 00:15 Hep B Core IgM Ab Non-reactive (Nonreactive) 05/07/21 00:15 Hepatitis C Antibody Reactive (Nonreactive) H 05/07/21 00:15 Histoplasma Antibody Negative 05/08/21 20:01 HIV 1&2 Ab & HIV 1 Ag Non-reactive (Non-Reactiv) 05/08/21 20:01 HIV 1&2 Antibody Non-reactive (Non-Reactiv) 05/08/21 20:01 Human Metapneumovir PCR Not detected (Not Detected) 05/10/21 11:05 Influenza A (RT-PCR) Not detected (Not Detected) 05/10/21 11:05 Influenza A (H1) PCR Not detected (Not Detected) 05/10/21 11:05 Influenza A (H3) PCR Not detected (Not Detected) 05/10/21 11:05 Influenza Type A Ag Negative (Negative) 05/08/21 18:30 Influenza Type B Ag Negative (Negative) 05/08/21 18:30 Influenza B (RT-PCR) Not detected (Not Detected) 05/10/21 11:05 Myco Comp PCR Spec Srce Sputum 05/09/21 18:55 Parainfluenzae Type 1 Not detected (Not Detected) 05/10/21 11:05 Parainfluenzae Type 2 Not detected (Not Detected) 05/10/21 11:05 Parainfluenzae Type 3 Not detected (Not Detected) 05/10/21 11:05 Pneumocystis Source induced sputm 05/09/21 18:55 Pneumocyst jiroveci PCR Not detected 05/09/21 18:55 A. galactomannan Ag EIA Not detected 05/08/21 20:01 A. galactomannan Ag Idx <0.50 05/08/21 20:01 RSV Ab Comment see note 05/10/21 11:05 Rhinovirus (PCR) Not detected (Not Detected) 05/10/21 11:05 SARS-CoV-2 Ag (Rapid) Negative (Negative) 05/07/21 00:16 TB (QFT) Gold In Tube Negative (NEGATIVE) 05/14/21 11:00 TB Test (QFT) Nil 0.01 IU/mL 05/14/21 11:00 TB Test (QFT) Mitogen 1.06 IU/mL 05/14/21 11:00 TB Test Mitogen - Nil 0.00 IU/mL 05/14/21 11:00 TB Test TB - Nil 0.00 IU/mL 05/14/21 11:00 M.tuberculosis Cmplx PCR TNP 05/09/21 18:55 Impressions Chest CTA 05/07/21 01:27 IMPRESSION: 1. Hazy bilateral pulmonary opacities, with consolidation in the left lower lobe. Findings may represent community-acquired pneumonia versus COVID-19.. 2. Evaluation of pulmonary arteries is somewhat limited secondary to respiratory motion. 3. No pulmonary embolism. 4. Atherosclerotic disease of the coronary arteries. 5. No aortic dissection. Radiation Dose CTDIVOL = (mGy): DLP = 875.21 (mGy-cm) Venous Duplex 05/10/21 09:00 IMPRESSION: No evidence of deep vein thrombosis. Radiation Dose CTDIVOL = (mGy): DLP = (mGy-cm) Chest X-Ray 05/15/21 06:59 IMPRESSION: Stable abnormal chest. A&P Assessment and plan (1) Respiratory failure with hypoxia: Status: Acute Qualifiers: Chronicity: acute Qualified Code(s): J96.01 - Acute respiratory failure with hypoxia (2) ARDS (adult respiratory distress syndrome): Status: Acute (3) Acute encephalopathy: Status: Acute (4) Pneumonia: Status: Acute Qualifiers: Laterality: bilateral Lung location: unspecified part of lung Pneumonia type: due to unspecified organism Qualified Code(s): J18.9 - Pneumonia, unspecified organism (5) COPD exacerbation: Status: Acute (6) PVD (peripheral vascular disease) with claudication: Status: Acute (7) GERD (gastroesophageal reflux disease): Status: Acute Qualifiers: Esophagitis presence: without esophagitis Qualified Code(s): K21.9 - Gastro-esophageal reflux disease without esophagitis (8) Anxiety: Status: Acute (9) Nicotine dependence, cigarettes, with other nicotine-induced disorders: Status: Acute (10) Aspiration of foreign body in respiratory tract: Status: Acute Qualifiers: Encounter type: initial encounter Qualified Code(s): T17.908A - Unspecified foreign body in respiratory tract, part unspecified causing other injury, initial encounter (11) Amphetamine addiction: Status: Acute (12) Pulmonary hypertension: Status: Acute #Altered mental status-drug withdrawal/hypoxia/psychiatric #Hypoxic respiratory failure secondary to ARDS-secondary to pneumonia/fluid overload secondary to amphetamine abuse #Aspiration of foreign body-possible cause of postobstructive pneumonia #COPD exacerbation in patient with nicotine dependence #Excessive dynamic airway compression of trachea and bronchus on expiration noted during #Moderate pulmonary hypertension with RVSP 45 to 50 mmHg and mild TR on echo.LV dilated. #Significant psychiatric history, schizoaffective disorder, bipolar, drug abuse #History of GERD #History of PVD with claudication -Intubated 05/09/2021 and connected to mechanical ventilator currently on CMV mode -completed 2 proning sessions; off paralytic and Versed; fentanyl 25 MCG and propofol 40 -Patient opens her eyes but does not track or follow any commands -Plan is to taper off sedation and wake the patient -EEG yesterday showed profuse diffuse swelling consistent with diffuse brain dysfunction possibly due to sedation or toxic or metabolic cause. No specific epileptiform features seen, great deal of artifact due to constant. -Obtain CT head to rule out any intracranial pathology -Unfortunately it is taking too long for patient mentation to improve or probably this might be her baseline given her underlying drug history and psychiatric history-if CT head is negative-should attempt extubation keeping in mind high chance of reintubation and see how patient does -Today ABG 7.4 0/43/70/27/on CMV 450/40%/8 -CT chest revealed hazy bilateral pulmonary opacities, with consolidation in the left lower lobe. Findings may represent community-acquired pneumonia versus COVID-19. Evaluation of pulmonary arteries is somewhat limited secondary to respiratory motion. No pulmonary embolism. -S/p bronchoscopy 05/09/2021 revealed a foreign body in RML-later retrieved with therapeutic bronchoscope 10 mm x 5 mm popcorn kernel -BAL positive for strep agalactiae group B-currently on vancomycin; DC'd imipenem -We will discontinue Levaquin after 7 days-started 05/11/2021 -BAL galactomannan, beta D glucan, PCP,-negative -Covid PCR x2 --we will discontinue dexamethasone; currently on IV Solu-Medrol 40 every 12 for COPD exacerbation and will gradually taper down based on clinical response; -Also bronchoscopy showed significant excessive dynamic airway compression prob ably contributing to his airway constriction while taking off sedation -Continue DuoNeb every 4 scheduled nebulization and Pulmicort 0.5 mg twice daily. -Patient also receiving Seroquel 600 p.o. at bedtime, fluoxetine 80 mg p.o. daily, BuSpar 10 mg every 12 hours; Wellbutrin 150 p.o. every 12 -decreased doses of his psychiatric medications to better assess patient mentation-in fact recommended to discontinue all medications except Seroquel 300 p.o. at bedtime - psychiatry consulted the patient was intubated and sedated- reconsult once patient is extubated -I/O +850 cc L over last 24 hours-Lasix 20 mg -monitor I&O to keep net even - BNP 1057; Echo 05/09/2021 LV dilated cannot rule out wall motion abnormalities. Moderate pulmonary hypertension with normal RV size and function. RVSP 45 to 5 0 mmHg and mild TR -U tox positive for amphetamines -Sugars moderately controlled -Started tube feeds,increase to 30 mL/h -bowel regimen senna and lactulose -GI prophylaxis Protonix -DVT prophylaxis Lovenox -Prognosis guarded -Recently lost her daughter for fentanyl overdose, another daughter lives in [place] Recommendations conveyed to hospitalist, RN, RT aking care of the patient We will taper off paralytic and sedation and awakening trial, followed by breathing trials Attestations Medical Necessity Statement*: AMS and acute hypoxic respiratory failure secondary to ARDS due to pneumonia/fluid overload due to amphetamine use Time Spent in Patient Care: Greater than 35 minutes (>than 50% of time spent in counselling and/or direct pt care on unit) . Critical Care Time: The high probability of a clinically significant, sudden or life threatening deterioration of the patient's [neurological, pulmonary, cardiac] system(s) required my full and direct attention, intervention and personal management. The critical care time is as shown. This time is in addition to time spent performing any reported procedures but includes the following: [x] Data and vital sign review and interpretation [x] Patient assessment, examination and intervention [x] Documentation [x] Medication orders and management Critical Care Time (min): 42 Coding Level of Care Code Acute Game Developer for Dorcas Fwd Diagnoses Respiratory failure with hypoxia J96.01 Chronicity: acute ARDS (adult respiratory distress syndrome) J80 Acute encephalopathy G93.40 Pneumonia J18.9 Laterality: bilateral Lung location: unspecified part of lung Pneumonia type: due to unspecified organism COPD exacerbation J44.1 PVD (peripheral vascular disease) with claudication I73.9 GERD (gastroesophageal reflux disease) K21.9 Esophagitis presence: without esophagitis Anxiety F41.9 Nicotine dependence, cigarettes, with other nicotine-induced disorders F17.218 Aspiration of foreign body in respiratory tract T17.908A Encounter type: initial encounter Amphetamine addiction F15.20 Pulmonary hypertension I27.20
[2021-05-16] MEDS: levofloxacin-dextrose 5 % 750 MG/150 ML PREMIX 100 MG IV (18:17)
--- NOTE | 2021-05-16 18:51 | PC.NURSE ---
All charting reviewed and confirmed.
[2021-05-16] MEDS: sennosides 8.6 mg Tablet PO (20:46)
[2021-05-16] MEDS: quetiapine 300 mg Tablet PO (20:46)
[2021-05-17] VITALS (62 sets, daily range): BP systolic 96–141; BP diastolic 56–82; PULSE 51–535; RESP 14–24; TEMP 36.4–37.4; O2SAT 84–95; BMI 39.4
[2021-05-17] MEDS: propofol 1,000 MG/100 ML INJ 34.02 MG IV ×6 (00:22→20:19)
[2021-05-17] MEDS: BuSPIRONE 10 mg Tablet PO ×2 (02:44→13:42)
[2021-05-17] MEDS: ipratropium-albuterol 3 mL Neb INHALATION ×6 (03:00→23:15)
[2021-05-17] MEDS: vancomycin 1,250 MG/250 ML PIGGYBACK 250 MG IV ×2 (03:48→15:53)
[2021-05-17 04:53] LABS: Basophils % 0.2 %; Hematocrit 33.7 % (37.0-47.0); Hemoglobin 10.6 g/dL (11.5-15.3); Lymphocytes # 1.3 10^3/uL (0.8-4.8); Lymphocytes % 13.9 %; Mean Corpuscular HGB Conc 31.5 g/dL (30.0-36.0); Mean Corpuscular Hemoglobin 29.9 pg (28.0-34.0); Mean Corpuscular Volume 94.9 fl (81-99); Monocytes # 0.8 10^3/uL (0.2-0.9); Monocytes % 8.1 %; Neutrophils # 7.02 10^3/uL (1.8-7.7); Neutrophils % 74.3 %; Nucleated Red Blood Cells % 0 %; Platelet Count 330 10^3/cmm (130-400); Red Blood Count 3.55 10^6/uL (4.1-5.3); Red Cell Distribution Width 13.3 % (12.1-15.1); White Blood Count 9.4 10^3/uL (4.0-10.0)
[2021-05-17 05:22] LABS: Alanine Aminotransferase 17 U/L (0-33); Albumin Level 3.4 g/dL (3.5-5.2); Alkaline Phosphatase 90 IU/L (35-105); Anion Gap 14.8 (5-19); Aspartate Amino Transferase 11 U/L (0-32); Blood Urea Nitrogen 17 mg/dL (6-20); Calcium 8.9 mg/dL (8.5-10.5); Carbon Dioxide 26 mmol/L (22-29); Chloride 99 mmol/L (98-107); Globulin 2.8 g/dL (1.3-4.6); Glomerular Filtration Rate 163.4 mL/min (90-130); Glucose 164 mg/dL (65-115); Osmolality Calculated 287 mOsm/kg (285-295); Potassium 3.8 mmol/L (3.5-5.1); Sodium 136 mmol/L (136-145); Total Bilirubin 0.2 mg/dL (0.15-1.2); Total Protein 6.2 g/dL (6.6-8.7)
[2021-05-17] MEDS: HYDROmorphone 1 mg/mL INJ 1 mL IVP ×2 (05:30→13:28)
[2021-05-17] MEDS: FUROsemide 20 mg Tablet PO (05:30)
[2021-05-17] MEDS: enoxaparin 40 mg/0.4 mL Syringe SUBCUT (05:30)
[2021-05-17 06:11] LABS: ABG PCO2 39.4 mmHg (35-45); ABG PH Result 7.47 (7.35-7.45); Base Excess ABG 4.3 mmol/L (-2.0-2.0); Blood Gas Allen Test Pos; Blood Gas Operator Identificat JB; Blood Gas Sample Site Radial, right; Blood Gas Sample Type Arterial; HCO3 ABG 28.4 mmol/L (22-26); Oxygen Device VENT; PO2 ABG 65.5 mmHg (80.0-100.0)
--- NOTE | 2021-05-17 06:58 | PC.NURSE ---
Shift Note Frequent safety and comfort rounds continue. Orders and/or nursing care completed as indicated. Patient monitored for response to intervention and treatment(s). During the shift the patient had several episodes where they were bunking the ventilator, breathing as high as the low 40's. Current drips include Fentanyl, Propofol, and Precedex. There were no uneventful events during the shift that took place. It was observed that once the sedation is turned off, the patient very quickly becomes agitated, and really struggled on the ventilator. Urine output was 925 mL
[2021-05-17] MEDS: budesonide 0.5 mg/2 mL Neb INHALATION ×2 (07:44→20:22)
[2021-05-17] MEDS: lactulose oral liq 20 gm/30 mL UDC 10 GM PO ×2 (07:58→20:15)
[2021-05-17] MEDS: pantoprazole 40 mg SDV IVP (08:00)
[2021-05-17] MEDS: fluoxetine 20 mg Capsule 80 MG PO (08:00)
--- NOTE | 2021-05-17 08:00 | PC.NURSE ---
Addendum entered by MEG Thomas 05/17/21 17:04: Feeding was not restarted. Thomas was notified. Patient abdomen large and distended, no bowel movement reported in over 72 hours. Original Note: Medication Administration Placement of OG tube confirmed by xray and auscultation of the stomach. Feeding held. Residual amount of 6mL of fluid, then added back into OG tube. 100 mL of water inserted into the patient's OG tube then 150 mL of fluids and medications. Medications were then flushed with 100 mL of water and tube feeding was restarted at 30 mL/hour. Patient tolerated well. Will continue to monitor.
[2021-05-17] MEDS: buPROPion SR (12 HR) 150 mg Tablet PO (08:01)
[2021-05-17] MEDS: lamoTRIgine 100 mg Tablet 150 MG PO (08:01)
[2021-05-17] MEDS: dexmedeTOMIDine 0.9 % NaCL 400 MCG/100 ML PREMIX 10.99 MCG IV (08:06)
[2021-05-17] MEDS: artificial tears Op Oint 3.5 gm 1 APPLIC EYE-BOTH (08:26)
[2021-05-17] MEDS: FUROsemide 10 mg/mL SDV 2mL 20 MG IVP (10:47)
[2021-05-17] MEDS: lidocaine 4% PF 5 mL INJ 4 ML INHALATION (11:33)
--- NOTE | 2021-05-17 11:58 | PC.NUTR ---
If medically appropriate to restart TF, and if Current rate of Propofol is 27.22 mls/hr, recommend goal rate of Jevity 1.2 @ 30 mls/hr, with FW flushes per MD discretion. See RD full assessment for details.
--- NOTE | 2021-05-17 12:09 | CTR_ITS ---
PROCEDURE INFORMATION: Exam: CT Head Without Contrast Exam date and time: 05/17/2021 12:09 PM Age: 61 years old Clinical indication: Altered mental status/memory loss; Confusion or disorientation; Patient HX: Persistent encephalopathy TECHNIQUE: Imaging protocol: Computed tomography of the head without contrast. Radiation optimization: All CT scans at this facility use at least one of these dose optimization techniques: automated exposure control; mA and/or kV adjustment per patient size (includes targeted exams where dose is matched to clinical indication); or iterative reconstruction. COMPARISON: CT head wo con* [id number] 01/31/2019 3:38 PM RADIATION DOSE METRICS: Total DLP (mGy-cm): 1646.18 FINDINGS: Limitations: Streak and motion artifact at the skull base provide some limitation to fine parenchymal evaluation in this region. Brain: Normal. No hemorrhage. Mild diffuse cerebral atrophy and sequela of chronic small vessel ischemic disease. Old punctate lacunar infarcts noted in the left basal ganglia. No mass effect. Cerebral ventricles: No ventriculomegaly. Paranasal sinuses: Visualized sinuses are unremarkable. No fluid levels. Mastoid air cells: Visualized mastoid air cells are well aerated. Bones/joints: Unremarkable. No acute fracture. Soft tissues: Unremarkable. CT/CT head wo con* [id number] IMPRESSION: 1. No acute intracranial abnormality. 2. Mild diffuse cerebral atrophy and sequela of chronic small vessel ischemic disease as well as a couple old lacunar infarcts in the left basal ganglia. Radiation Dose CTDIVOL = (mGy): DLP = 1646.18 (mGy-cm)
--- NOTE | 2021-05-17 13:45 | PC.NURSE ---
Medication Administration Placement of OG tube confirmed by xray and auscultation of the stomach. Feeding stopped. Residual amount of 0mL of fluid. 60 mL of water inserted into the patient's OG tube then 60 mL of fluids and medications. Medications were then flushed with 60 mL of water. Patient tolerated well. Will continue to monitor.
--- NOTE | 2021-05-17 15:14 | PM.PN ---
Subjective Subjective: Interval history: With weaning down sedation - eyes open, today reported to have blinked. Coughing from ET tube. Not making eye contact, communicating or following commands. Reported moving all extremities. Vitals/I&O/Wt Last Vital Signs Temp 99.3 F 05/17/21 11:00 Pulse 57 L 05/17/21 14:00 Resp 23 H 05/17/21 12:35 BP 108/71 05/17/21 14:00 Pulse Ox 92 05/17/21 14:00 05/17/21 05/17/21 05/17/21 06:59 14:59 22:59 Intake Total 1313.540 / 2846.957 121.012 / 121.012 Output Total 925 / 3425 1650 / 1650 Balance 388.540 / -578.043 -1528.988 / -1528.988 Weight last 48 hrs Weight 110.875 kg Physical Exam Const: GENERAL APPEARANCE: patient mechanically ventilated ORIENTATION/CONSCIOUSNESS: Yes confused HENMT: COMMON NORMALS: oropharynx normal Neck/C-Spine: COMMON NORMALS: no JVD Resp: COMMON NORMALS: clear to auscultation bilaterally AUSCULTATION: clear to auscultation bilaterally Cardio: COMMON NORMALS: no JVD, regular rhythm, S1 normal heart sound present, S2 normal heart sound present and No murmurs present (Cardio) RHYTHM: regular rhythm HEART SOUNDS: S1 normal heart sound present and S2 normal heart sound present GI: COMMON NORMALS: Normal to inspection, nondistended, normoactive bowel sounds present and Soft to palpation INSPECTION: Yes abdominal distension PALPATION: Yes Soft to palpation Extremity: COMMON NORMALS: no joint enlargement and no pedal edema OTHER: Right BKA Neuro: COMMON NORMALS: moves all extremities Skin: COMMON NORMALS: no rashes or lesions noted GENERAL SKIN EXAM: no rashes or lesions noted Urinary Catheter Management^: 2-way Urethral: Cath Placed During This Visit: yes Reason for Continuing Indwelling Catheter: Accurate Measurement of Urinary Output in Critically Ill Patients Urinary Catheter Date of Insertion: 05/09/21 Urinary Catheter Time of Insertion: 05:30 Data : 05/17/21 04:00 05/17/21 04:00 A&P Assessment and plan (1) Acute encephalopathy: Per discussion with other team members, will assess CT head, stop Wellbutrin, buspirone, fluoxetine. Continue reduced dose of Seroquel. Continue attempts to wean off fentanyl. Wean down propofol, Precedex as tolerating with reassessment of mental status. IV steroids stopped. We will check lamotrigine level. Persistent delirium/encephalopathy. EEG obtained, generalized slowing, no epileptiform discharges noted. Elevated risk of delirium. On a number of psychiatric medications. With possible substance use disorder, possible withdrawal, urine tox is positive for amphetamine, but unconfirmed and could have been cross reaction from on her medications like bupropion. Confirmatory test was not obtained. Status: Acute (2) Respiratory failure with hypoxia: So far unresolved encephalopathy has been a barrier to extubation. Attempted wean sedation again today. Continue attempts to wean off fentanyl entirely. Propofol, Precedex subsequently. Continue attempts to wean off mechanical ventilation. Group B strep growing on sputum culture. Continue empiric antibiotic coverage with Levaquin, vancomycin. Pending fungal studies. Negative galactomannan. Negative QuantiFERON gold. Negative PCP induced sputum. Breathing treatments. Status: Acute Qualifiers: Chronicity: acute Qualified Code(s): J96.01 - Acute respiratory failure with hypoxia (3) Pneumonia: As above. Secondary to postobstructive pneumonia, possible aspiration pneumonitis, superimposed on interstitial lung disease, emphysema Intubated 05/09/2021 Status post bronchoscopy, removal of foreign body right middle lobe Respiratory viral panel negative. Negative galactomannan, negative PCP induced sputum. Pending beta D glucan, fungal. Negative TB QuantiFERON gold mycobacterial studies. Status: Acute Qualifiers: Laterality: bilateral Lung location: unspecified part of lung Pneumonia type: due to unspecified organism Qualified Code(s): J18.9 - Pneumonia, unspecified organism (4) COPD exacerbation: Continue Solu-Medrol, budesonide. Nebs. Antibiotics. Status: Acute (5) Interstitial lung disease: Status: Acute Additional A&P Information Cardiac echocardiogram, left ventricular appears to be dilated, diastolic function is normal, moderate pulmonary pretension Hep C positive Right central line in place Hyperammonemia: Minimal, started lactulose Constipation: Unknown last BM, but nothing at least 4-5 days. Has been getting some lactulose. Will give Dulcolax suppository, if not responding may need an enema. Will obtain abdominal series. Attestations Medical Necessity Statement*: Continue admission for cyst management of persistent encephalopathy, recovering hypoxic respiratory failure, with difficulty weaning off sedation and mechanical ventilation. Coding Level of Care Code Acute Steam Turbine Assembler for Chg Fwd Diagnoses Acute encephalopathy G93.40 Respiratory failure with hypoxia J96.01 Chronicity: acute Pneumonia J18.9 Laterality: bilateral Lung location: unspecified part of lung Pneumonia type: due to unspecified organism COPD exacerbation J44.1 Interstitial lung disease J84.9
--- NOTE | 2021-05-17 15:43 | XRR_ITS ---
PROCEDURE INFORMATION: Exam: XR Abdomen Exam date and time: 05/17/2021 3:43 PM Age: 61 years old Clinical indication: Bloating; Additional info: Distention TECHNIQUE: Imaging protocol: XR of the abdomen. Views: 2 Views. Upright and supine views. COMPARISON: CT abdomen pelvis w con* [id number] 01/31/2019 3:48 PM FINDINGS: Tubes, catheters and devices: Enteric tube terminates within the stomach. Lungs: Streaky left basilar opacity. No evident pleural effusion, decreased sensitivity on the left given the prominent epicardial fat pad. No pneumothorax. Gastrointestinal tract: There is gaseous distention of the colon and there appears to be dilated loops of small bowel in the upper abdomen measuring up to 4.5 cm in transverse dimension. Mild gaseous distention of the stomach. Intraperitoneal space: Normal. No free air. Bones/joints: Left total hip arthroplasty noted. Advanced multilevel degenerative changes of the thoracolumbar spine. Soft tissues: Right chest line terminates in the proximal right atrium. Endotracheal tube is positioned 2 cm above the parag. Prominent epicardial fat pad noted as demonstrated on prior CT. XR/XR acute abdomen series [id number] IMPRESSION: 1. Gaseous distention of the stomach and bowel. Findings raise suspicion for bowel obstruction or ileus and can be further evaluated with CT. 2. Streaky left basilar opacity which may relate to atelectasis, with developing consolidation not excluded. Radiation Dose CTDIVOL = (mGy): DLP = (mGy-cm)
[2021-05-17] MEDS: dexmedeTOMIDine 0.9 % NaCL 400 MCG/100 ML PREMIX 13.74 MCG IV ×2 (15:53→15:54)
[2021-05-17] MEDS: bisacodyl 10 mg Supp PR (15:54)
--- NOTE | 2021-05-17 17:14 | PC.NURSE ---
Patient daughter, Laurie, called and was updated on patient status.
--- NOTE | 2021-05-17 18:33 | PC.NURSE ---
All charting reviewed and confirmed.
[2021-05-17] MEDS: levofloxacin-dextrose 5 % 750 MG/150 ML PREMIX 100 MG IV (20:14)
[2021-05-17] MEDS: sennosides 8.6 mg Tablet PO (20:15)
[2021-05-17] MEDS: quetiapine 300 mg Tablet PO (20:15)
--- NOTE | 2021-05-17 21:25 | PC.NURSE ---
Scheduled Dilaudid held d/t fentanyl infusing
[2021-05-18] VITALS (60 sets, daily range): BP systolic 85–132; BP diastolic 50–80; PULSE 49–76; RESP 12–25; TEMP 35.7–37.2; O2SAT 87–95
[2021-05-18] MEDS: propofol 1,000 MG/100 ML INJ 30.62 MG IV (00:06)
[2021-05-18] MEDS: dexmedeTOMIDine 0.9 % NaCL 400 MCG/100 ML PREMIX 16.49 MCG IV (00:44)
[2021-05-18] MEDS: propofol 1,000 MG/100 ML INJ 27.22 MG IV ×2 (03:09→06:22)
[2021-05-18] MEDS: ipratropium-albuterol 3 mL Neb INHALATION ×5 (04:10→23:14)
[2021-05-18 04:17] LABS: Basophils % 0.1 %; Hematocrit 33.1 % (37.0-47.0); Hemoglobin 10.7 g/dL (11.5-15.3); Lymphocytes # 0.8 10^3/uL (0.8-4.8); Lymphocytes % 7.4 %; Mean Corpuscular HGB Conc 32.3 g/dL (30.0-36.0); Mean Corpuscular Hemoglobin 29.6 pg (28.0-34.0); Mean Corpuscular Volume 91.7 fl (81-99); Monocytes # 0.8 10^3/uL (0.2-0.9); Monocytes % 7.7 %; Neutrophils # 9.03 10^3/uL (1.8-7.7); Neutrophils % 83.3 %; Nucleated Red Blood Cells % 0 %; Platelet Count 341 10^3/cmm (130-400); Red Blood Count 3.61 10^6/uL (4.1-5.3); Red Cell Distribution Width 13.2 % (12.1-15.1); White Blood Count 10.8 10^3/uL (4.0-10.0)
[2021-05-18 04:48] LABS: Alanine Aminotransferase 18 U/L (0-33); Albumin Level 3.4 g/dL (3.5-5.2); Alkaline Phosphatase 91 IU/L (35-105); Anion Gap 15.7 (5-19); Aspartate Amino Transferase 13 U/L (0-32); Blood Urea Nitrogen 20 mg/dL (6-20); Carbon Dioxide 27 mmol/L (22-29); Chloride 97 mmol/L (98-107); Globulin 3.1 g/dL (1.3-4.6); Glomerular Filtration Rate 126.3 mL/min (90-130); Glucose 183 mg/dL (65-115); Osmolality Calculated 289 mOsm/kg (285-295); Potassium 3.7 mmol/L (3.5-5.1); Sodium 136 mmol/L (136-145); Total Bilirubin 0.3 mg/dL (0.15-1.2); Total Protein 6.5 g/dL (6.6-8.7)
[2021-05-18 04:51] LABS: Vancomycin Trough 14.8 ug/mL (10-15)
[2021-05-18] MEDS: vancomycin 1,250 MG/250 ML PIGGYBACK 250 MG IV ×2 (04:59→15:55)
[2021-05-18] MEDS: FUROsemide 20 mg Tablet PO (05:00)
[2021-05-18] MEDS: enoxaparin 40 mg/0.4 mL Syringe SUBCUT (05:00)
--- NOTE | 2021-05-18 06:04 | PC.NURSE ---
Shift Note Frequent safety and comfort rounds continue. Orders and/or nursing care completed as indicated. Patient monitored for response to intervention and treatment(s). Education provided includes vent management, restraints. Patient and/or underwriting service representative sedated. Will continue to monitor.
[2021-05-18] MEDS: budesonide 0.5 mg/2 mL Neb INHALATION ×2 (08:46→20:07)
[2021-05-18] MEDS: lactulose oral liq 20 gm/30 mL UDC 10 GM PO (09:03)
[2021-05-18] MEDS: lamoTRIgine 100 mg Tablet 150 MG PO (09:04)
[2021-05-18] MEDS: pantoprazole 40 mg SDV IVP (09:04)
[2021-05-18] MEDS: dexmedeTOMIDine 0.9 % NaCL 400 MCG/100 ML PREMIX 13.74 MCG IV ×2 (09:11→19:18)
[2021-05-18] MEDS: polyethylene glycol 3350 Pkt 17 gm PO ×2 (09:14→17:25)
[2021-05-18] MEDS: haloperidol inj 5 mg/mL INJ 1 mL 1 MG IVP (11:35)
[2021-05-18] MEDS: LORazepam 2 mg/mL INJ 1 mL 1 MG IVP ×2 (11:37→14:36)
--- NOTE | 2021-05-18 11:41 | PC.NURSE ---
Per Dr howe orders, Nurse started a sedation vacation. Nurse turned off propofol, reduced fentanyl from 20 mch/hr to 15mcg/hr, and reduced precedex from 0.5mcg/KG/HR to 0.1mcg/kg/hr.
--- NOTE | 2021-05-18 11:43 | PC.NURSE ---
After about 1 hour with reduced sedation, patient has started to wake up. She is now answering yes or no questions by shaking her head. She is opening and tightly closing eyes on command. She is not following the commands to squeeze fingers, she shakes her head no when you ask her too. Patient is very agitated and thrashing head side to side. Nurse is concerned about dislodging the ET tube. Alerted DR Glover to all the above. Received orders for haldol and ativan for anxiety and agitation.
--- NOTE | 2021-05-18 12:19 | PC.NURSE ---
Patient continues to be agitated despite ativan, haldol, and increasing precedex from 0.1 to 0.3. Having trouble keeping an spo2 above 82%. Nurse alerted Dr howe and was advised to restart sedation. Nurse restarted propofol.
[2021-05-18] MEDS: propofol 1,000 MG/100 ML INJ 10.21 MG IV (13:11)
--- NOTE | 2021-05-18 14:04 | PC.NURSE ---
Nurse attempted to call patient's daughter, Laurie, at [phone] to give an update on patient condition. No answer. Goes straight to a personalized voicemail. Voicemail is full.
[2021-05-18] MEDS: levofloxacin-dextrose 5 % 750 MG/150 ML PREMIX 100 MG IV (17:33)
--- NOTE | 2021-05-18 18:24 | PM.PN ---
Subjective Subjective: Interval history: Patient was seen this morning, she remained intubated, sedated, remains afebrile, normotensive, 50% FiO2, good urine output, patient sedation was weaned, she was sedated to low-dose fentanyl, Precedex, she became much more responsive, following some commands according to nursing staff, however would become agitated quite quickly, thrashing her head, concerns for self extubation, so she was placed back on increased dose of sedation to minimize agitation Vitals/I&O/Wt Last Vital Signs Temp 98.9 F 05/18/21 16:00 Pulse 55 L 05/18/21 18:00 Resp 16 05/18/21 18:00 BP 89/56 05/18/21 18:00 Pulse Ox 94 05/18/21 18:00 05/18/21 05/18/21 05/18/21 06:59 14:59 22:59 Intake Total 868.583 / 1690.907 324.670 / 324.670 Output Total 750 / 2750 825 / 825 225 / 1050 Balance 118.583 / -1059.093 -500.330 / -500.330 -225 / -725.330 Weight last 48 hrs Weight 109.769 kg Weight 110.875 kg Physical Exam Const: COMMON NORMALS: no acute distress ORIENTATION/CONSCIOUSNESS: Yes awake; not oriented to person, not oriented to place and not oriented to time Chest: OTHER: Right central line in place Cardio: COMMON NORMALS: regular rate, regular rhythm, S1 normal heart sound present and S2 normal heart sound present RATE: regular rate RHYTHM: regular rhythm HEART SOUNDS: S1 normal heart sound present and S2 normal heart sound present GI: COMMON NORMALS: Soft to palpation INSPECTION: Yes normal to inspection and Yes abdominal distension AUSCULTATION: Yes Hypoactive bowel sounds present PALPATION: Yes Soft to palpation Extremity: COMMON NORMALS: no pedal edema NARRATIVE EXTREMITY EXAM: Right lower extremity amputation, secondary to infection Neuro: SENSORIUM/ORIENTATION: No oriented to person, No oriented to place and No oriented to time Urinary Catheter Management^: 2-way Urethral: Cath Placed During This Visit: yes Reason for Continuing Indwelling Catheter: Accurate Measurement of Urinary Output in Critically Ill Patients Urinary Catheter Date of Insertion: 05/09/21 Urinary Catheter Time of Insertion: 05:30 Data : 05/18/21 03:15 05/18/21 03:15 A&P Assessment and plan (1) Acute encephalopathy: Per discussion with other team members, head CT within normal notes, stop Wellbutrin, fluoxetine continue low-dose BuSpar. Continue reduced dose of Seroquel. Continue attempts to wean off fentanyl. Wean down propofol, Precedex as tolerating with reassessment of mental status. IV steroids stopped. We will check lamotrigine level. Will discuss with daughter Persistent delirium/encephalopathy. EEG obtained, generalized slowing, no epileptiform discharges noted. Elevated risk of delirium. On a number of psychiatric medications. With possible substance use disorder, possible withdrawal, urine tox is positive for amphetamine, but unconfirmed and could have been cross reaction from on her medications like bupropion. Confirmatory test was not obtained. Status: Acute (2) Respiratory failure with hypoxia: So far unresolved encephalopathy has been a barrier to extubation. Attempted wean sedation again today. Continue attempts to wean off fentanyl entirely. Propofol, Precedex subsequently. Continue attempts to wean off mechanical ventilation. Group B strep growing on sputum culture. Continue empiric antibiotic coverage with Levaquin, vancomycin. Pending fungal studies. Negative galactomannan. Negative QuantiFERON gold. Negative PCP induced sputum. Breathing treatments. Status: Acute Qualifiers: Chronicity: acute Qualified Code(s): J96.01 - Acute respiratory failure with hypoxia (3) Pneumonia: As above. Secondary to postobstructive pneumonia, possible aspiration pneumonitis, superimposed on interstitial lung disease, emphysema Intubated 05/09/2021 Status post bronchoscopy, removal of foreign body right middle lobe Respiratory viral panel negative. Negative galactomannan, negative PCP induced sputum. Pending beta D glucan, fungal. Negative TB QuantiFERON gold mycobacterial studies. Status: Acute Qualifiers: Laterality: bilateral Lung location: unspecified part of lung Pneumonia type: due to unspecified organism Qualified Code(s): J18.9 - Pneumonia, unspecified organism (4) COPD exacerbation: Continue Solu-Medrol, budesonide. Nebs. Antibiotics. Status: Acute (5) Interstitial lung disease: Status: Acute Additional A&P Information Cardiac echocardiogram, left ventricular appears to be dilated, diastolic function is normal, moderate pulmonary pretension Hep C positive Right central line in place Hyperammonemia: Minimal, started lactulose Constipation: Unknown last BM, abdomen distended, but nothing at least 4-5 days. X-ray shows ileus versus small bowel obstruction, has minimal liquidy bowel movements, increase lactulose to 20 g every 12 hours, MiraLAX 17 g twice daily, senna, repeat x-ray tomorrow morning, trial of enema Attestations Medical Necessity Statement*: Patient requires hospitalization for acute respiratory failure, acute encephalopathy, constipation Coding Level of Care Code Acute Child Therapist for [facility] Fwd Diagnoses Acute encephalopathy G93.40 Respiratory failure with hypoxia J96.01 Chronicity: acute Pneumonia J18.9 Laterality: bilateral Lung location: unspecified part of lung Pneumonia type: due to unspecified organism COPD exacerbation J44.1 Interstitial lung disease J84.9
[2021-05-18] MEDS: lactulose oral liq 20 gm/30 mL UDC PO (18:31)
--- NOTE | 2021-05-18 19:00 | PC.NURSE ---
SHift summary: Uneventful shift. Sedation vacation was done with patient and the patient was able to follow commands and answer yes or no questions. After about 1.5 hours of the sedation vacation, patient became very anxious and agitated. Saturation dropped into the low 80's and patient was noncompliant with the vent. Verbal reassurance, ativan, an haldol prn were unable to calm patient. Sedation was restarted. Nurse spoke to the daughter Laurie and gave an update.
[2021-05-18] MEDS: propofol 1,000 MG/100 ML INJ 17.01 MG IV (19:07)
[2021-05-18] MEDS: sennosides 8.6 mg Tablet PO (20:23)
[2021-05-18] MEDS: quetiapine 300 mg Tablet PO (20:23)
[2021-05-18] MEDS: propofol 1,000 MG/100 ML INJ 20.41 MG IV (23:52)
[2021-05-19] VITALS (56 sets, daily range): BP systolic 88–184; BP diastolic 49–96; PULSE 50–64; RESP 12–24; TEMP 36.8–37.6; O2SAT 88–97
[2021-05-19] MEDS: BuSPIRONE 10 mg Tablet PO ×2 (00:42→12:53)
[2021-05-19] MEDS: dexmedeTOMIDine 0.9 % NaCL 400 MCG/100 ML PREMIX 16.49 MCG IV ×2 (00:42→05:28)
[2021-05-19] MEDS: vancomycin 1,250 MG/250 ML PIGGYBACK 250 MG IV (04:16)
[2021-05-19 04:37] LABS: ABG PCO2 41.8 mmHg (35-45); ABG PH Result 7.46 (7.35-7.45); Arterial Blood Gas Hematocrit 34.4 % (37-47); Base Excess ABG 5.1 mmol/L (-2.0-2.0); Blood Gas Allen Test Pos; Blood Gas Sample Type Arterial; HCO3 ABG 29.5 mmol/L (22-26); PO2 ABG 78.8 mmHg (80.0-100.0)
[2021-05-19 04:38] LABS: Blood Gas Sample Site Radial, right; Blood Gas Tidal Volume 0.45; Oxygen Device VENT
[2021-05-19 05:24] LABS: Basophils % 0.1 %; Hematocrit 34.4 % (37.0-47.0); Hemoglobin 10.9 g/dL (11.5-15.3); Lymphocytes % 9.7 %; Mean Corpuscular HGB Conc 31.7 g/dL (30.0-36.0); Mean Corpuscular Hemoglobin 29.5 pg (28.0-34.0); Mean Corpuscular Volume 93.2 fl (81-99); Mean Platelet Volume 9.1 fL (7.4-10.4); Monocytes # 0.6 10^3/uL (0.2-0.9); Neutrophils # 8.55 10^3/uL (1.8-7.7); Neutrophils % 82.7 %; Nucleated Red Blood Cells % 0 %; Platelet Count 349 10^3/cmm (130-400); Red Blood Count 3.69 10^6/uL (4.1-5.3); Red Cell Distribution Width 13.4 % (12.1-15.1); White Blood Count 10.3 10^3/uL (4.0-10.0)
[2021-05-19] MEDS: enoxaparin 40 mg/0.4 mL Syringe SUBCUT (05:24)
[2021-05-19] MEDS: FUROsemide 20 mg Tablet PO (05:24)
[2021-05-19] MEDS: propofol 1,000 MG/100 ML INJ 20.41 MG IV ×3 (05:26→16:25)
[2021-05-19 05:34] LABS: D Dimer 0.46 ug/mIFEU (0-0.59)
[2021-05-19 05:42] LABS: Lactate (Lactic Acid level) 0.9 mmol/L (0.5-2.2)
[2021-05-19 05:52] LABS: Alanine Aminotransferase 16 U/L (0-33); Albumin Level 3.3 g/dL (3.5-5.2); Alkaline Phosphatase 92 IU/L (35-105); Anion Gap 11.9 (5-19); Aspartate Amino Transferase 9 U/L (0-32); Blood Urea Nitrogen 17 mg/dL (6-20); C Reactive Protein 23.5 mg/L (0.0-4.9); Calcium 8.9 mg/dL (8.5-10.5); Carbon Dioxide 29 mmol/L (22-29); Chloride 99 mmol/L (98-107); Glomerular Filtration Rate 163.4 mL/min (90-130); Glucose 169 mg/dL (65-115); Osmolality Calculated 287 mOsm/kg (285-295); Phosphorus 3.2 mg/dL (2.5-4.5); Potassium 3.9 mmol/L (3.5-5.1); Sodium 136 mmol/L (136-145); Total Bilirubin 0.4 mg/dL (0.15-1.2); Total Protein 6.3 g/dL (6.6-8.7)
[2021-05-19 05:53] LABS: NT Pro B Type Natriuretic Pept 105 pg/mL (0-125); Procalcitonin 0.05 ng/mL (0-0.5)
--- NOTE | 2021-05-19 06:00 | ECG_ITS ---
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 Measurements Intervals [place] Rate: 52 P: 54 W[place]: 158 QRS: 33 QRSD: 99 T: 39 QT: 431 QTc: 401 Interpretive Statements SINUS BRADYCARDIA Compared to ECG 05/11/2021 10:33:08 Sinus rhythm no longer present Sinus arrhythmia no longer present Electronically Signed On 05-19-2021 19:25:56 CDT by Megan Todd M.D. [email or web address]
[2021-05-19 06:04] LABS: Creatine Phosphokinase 44 U/L (26-192)
--- NOTE | 2021-05-19 06:51 | PC.NURSE ---
Shift Note Frequent safety and comfort rounds continue. Orders and/or nursing care completed as indicated. Patient monitored for response to intervention and treatment(s). Education provided includes ventilator liberations. Patient and/or circulation sales representative did not respond . Will continue to monitor.
--- NOTE | 2021-05-19 07:00 | XRR_ITS ---
PROCEDURE INFORMATION: Exam: XR Chest Exam date and time: 05/19/2021 7:00 AM Age: 61 years old Clinical indication: Dyspnea; Additional info: SOB TECHNIQUE: Imaging protocol: XR of the chest. Views: 1 view. COMPARISON: CR XR chest 1V portable [id number] 05/15/2021 7:00 AM FINDINGS: Tubes, catheters and devices: An endotracheal tube is placed with its tip approximately 3 cm from the parag. A right internal jugular vein central venous line is placed with its tip at the level of the superior cavoatrial junction. EKG leads overlie the chest. A nasogastric tube is present with its tip at least in the proximal stomach. Lungs: There may be a slight worsening in the infiltrates present in the left lower hemithorax compared with 05/15/2021. Pleural spaces: Unremarkable. No pleural effusion. No pneumothorax. Heart/Mediastinum: Unremarkable. No cardiomegaly. Bones/joints: Unremarkable. XR/XR chest 1V portable [id number] IMPRESSION: 1. Stable life support tubing. 2. There may be a slight worsening in the left lower lobe infiltrates compared with 05/15/2021. Radiation Dose CTDIVOL = (mGy): DLP = (mGy-cm)
--- NOTE | 2021-05-19 07:20 | PC.NURSE ---
Report received, assessment completed. VSS. Pt ventilated with ETT, 24cm at lip. Vent settings per RT flowsheet. OGT in place, med given per tube per offgoing nurse, clamped at this time. Gtts infusing per orders. Stomach distended, hypoactive bowel sounds. Pt restrained per protocol. Will monitor.
[2021-05-19] MEDS: lactulose oral liq 20 gm/30 mL UDC PO (07:56)
[2021-05-19] MEDS: lamoTRIgine 100 mg Tablet 150 MG PO (08:00)
[2021-05-19] MEDS: polyethylene glycol 3350 Pkt 17 gm PO ×2 (08:00→17:40)
[2021-05-19] MEDS: pantoprazole 40 mg SDV IVP (08:00)
[2021-05-19] MEDS: ipratropium-albuterol 3 mL Neb INHALATION ×5 (08:12→23:11)
[2021-05-19] MEDS: budesonide 0.5 mg/2 mL Neb INHALATION ×2 (08:12→19:39)
--- NOTE | 2021-05-19 08:12 | XRR_ITS ---
PROCEDURE INFORMATION: Exam: XR Abdomen Exam date and time: 05/19/2021 8:12 AM Age: 61 years old Clinical indication: Bloating; Patient HX: Possible bowel perforation, PT unable to give history; Additional info: Possible bowel obstruction TECHNIQUE: Imaging protocol: XR of the abdomen. Views: Frontal supine view of the abdomen. 1 View. Total images: 1 COMPARISON: CR (ABDOMEN, ) 05/17/2021 4:40 PM FINDINGS: Tubes, catheters and devices: Enteric tube with its tip in the gastric antrum. Multiple surgical clips are present. Gastrointestinal tract: There are distended bowel loops seen in the abdomen felt to be predominantly colonic. No evidence of obstruction. Distention appears similar to prior exam. Bones/joints: Left hip arthroplasty is present. Osseous structures are unchanged from the prior exam. XR/XR KUB portable [id number] IMPRESSION: 1. Enteric tube with its tip in the gastric antrum. 2. There are distended bowel loops seen in the abdomen felt to be predominantly colonic. No evidence of obstruction. Distention appears similar to prior exam. Radiation Dose CTDIVOL = (mGy): DLP = (mGy-cm)
--- NOTE | 2021-05-19 08:45 | CT_ITS ---
WS: [id number] CT ABDOMEN PELVIS TECHNIQUE: Contrast-enhanced CT of the abdomen and pelvis with coronal and sagittal reformatted image s. CLINICAL INFORMATION: sbo COMPARISON: CT 7 2018 DLP: 1981.[address] scans at [facility] use at least one of these dose optimization techniques: automated e xposure control; mA and/or kV adjustment per patient size (includes targeted exams where dose is matc hed to clinical indication); or iterative reconstruction. FINDINGS: Diffuse fatty infiltration of the liver. Cholecystectomy clips. Enteric tube with tip in the second p ortion the duodenum. Common bile duct dilatation postcholecystectomy unchanged likely physiologic. Co mpressive atelectasis in the lung bases. Small bilateral pleural effusions. Normal spleen. Fatty atro phy of the pancreas. Adrenal glands are normal. Normal renal parenchymal enhancement. No hydronephros is. Alcantara catheter. Left SHERRIE. Distended loops of small bowel in the midabdomen with air fluid levels. Dis tended loops of fluid-filled small bowel in the pelvis. Fecal retention in the right ascending colon. Air distended cecum in the midabdomen with air-fluid level. Prior ventral abdominal wall hernia repa ir. Sigmoid colon is decompressed. Advanced spondylitic changes lumbar spine. Grade 1 [address]hesis L5 on S1. CT/CT abdomen pelvis w con* [id number] IMPRESSION: 1. Findings compatible with partial small bowel obstruction with persistent ai r within the colon. Fecal retention in the right colon with distended cecum wit h air-fluid level. Cecum extends into the midabdomen measuring 9.5 cm. 2. Fluid-filled small bowel loops in the pelvis. No transition point. 3. Diffuse fatty infiltration of the liver. Cholecystectomy. 4. Enteric tube in the second portion the duodenum. 5. Small bilateral pleural effusions with compressive atelectasis in the lung bases.
[2021-05-19] MEDS: iohexol 300 mg/mL 100 mL Btl IV (09:17)
--- NOTE | 2021-05-19 09:52 | PC.CHAP ---
Pastoral Care Encounter/Spiritual Assessment Type of Contact [] Declined kelp gatherer visit [] Patient/Family/Request visit [] Outpatient visit [] Follow-up visit [] Physician referral [] Code/Alert [x] Routine visit [] Staff referral [] Actively dying [] Patient sleeping [] Family support [] [] Out of room [] Palliative care [] [] Receiving care in room [] Pre-surgical visit [] Trauma [] Long length of stay [x] ICU visit [] Other: Relational/Emotional Strength [] Patient feels connected with others/family/visitors/staff [] Distress [] Loneliness/isolation [] Abandonment Spirituality of Patient [] Person of Love [] Attends Protestant of their Love [] Believes in Prayer [] Reads Bible or Methodist materials [] There are Spiritual issues to be addressed Asset Protection Specialist Interventions [x] Prayer [] Active listening [] Non-anxious presence [] Spiritual/emotional support [] Crisis/trauma care [] Spiritual counseling [] Bereavement support [] Provided bereavement packet [] Provided Bible/devotional materials [] Provided toy/stuffed animal, coloring book to patient or family member [] Provided Communion [] Anointing/[place] [] Salvation [x] Completed spiritual assessment [] Other: Impact on Illness or Injury [] Angry [] Fearful [] Anxious [] Often cries [] Exhaustion [] Unable to work [] Unable to attend caodaism [] Unable to walk/stand [] Unable to read [] Unable to drive [] Unable to eat/drink [] Unable to sleep [] Unable to be with family [] Patient intubated [] Other: Summary Time spent with patient x
--- NOTE | 2021-05-19 12:48 | PM.CONSULT ---
Providers/Reason For Consult Consulting Physician/Specialty*: Eleazar Welch MD Reason for Consult*: Abdominal distention Requesting Physician: Dr. Glover Attending Physician: Harsh Glover MD History of Present Illness History of Present Illness Chief Complaint: Per hospitalist description abdominal distention History of present illness: Mrs. Dalila aSmuels is a 61 year old female admitted to the hospitalist service and has been on mechanical ventilation and sedated.Patient has history of chronic pain syndrome, COPD, PVD, GERD, hepatitis C, peripheral vascular disease, borderline personality disorder, schizoaffective disorder, IV drug abuse, nicotine and opiate dependence currently admitted to ICU for hypoxic respiratory failure secondary to ARDS due to suspected bacterial pneumonia. COVID-19 PCR negative twice. Patient remains in the ICU due to respiratory failure. Was noticed to have abdominal distention. Tube feeds were tried and they were stopped as the patient did not have bowel movement or passing gas. CT scan of the abdomen and pelvis shows 1. Findings compatible with partial small bowel obstruction with persistent air within the colon. Fecal retention in the right colon with distended cecum with air-fluid level. Cecum extends into the midabdomen measuring 9.5 cm. 2. Fluid-filled small bowel loops in the pelvis. No transition point. 3. Diffuse fatty infiltration of the liver. Cholecystectomy. 4. Enteric tube in the second portion the duodenum. 5. Small bilateral pleural effusions with compressive atelectasis in the lung bases. General surgery was consulted for further evaluation Review of Systems General: Reports: ROS unobtainable due to endotracheal tube Meds/Allergies Home Medications and Allergies Home Medications Medication Instructions Recorded Confirmed Last Taken Type miscellaneous medical supply See Rx Instructions MISCELLANEOUS 11/28/19 05/07/21 Unknown Rx .COMPLEX #1 each dextromethorphan polistirex 30 10 ml PO Q12H PRN #89 ml 12/11/20 05/07/21 Unknown Rx mg/5 mL oral susp ext.release 12hr albuterol sulfate 2.5 mg INHALATION Q4H PRN #180 ml 01/13/21 05/07/21 Unknown Rx albuterol sulfate 90 mcg/actuation 2 puff INHALATION Q6H PRN 30 Days 01/13/21 05/07/21 Unknown Rx aerosol inhaler #18 gm budesonide 0.5 mg/2 mL suspension 0.5 mg INHALATION BID #60 ml 01/13/21 05/07/21 Unknown Rx for nebulization epinephrine 0.3 mg/0.3 mL 0.3 mg IM Q15M PRN #2 each 01/13/21 05/07/21 Unknown Rx injection, auto-injector miscellaneous medical supply See Rx Instructions MISCELLANEOUS 01/13/21 05/07/21 Unknown Rx .COMPLEX #1 ea vits no.129-ferrous fum 1 tab PO DAILY 90 Days #90 tab 01/13/21 05/07/21 Unknown Rx 27 mg iron-folic acid 800 mcg tablet promethazine 12.5 mg tablet 12.5 mg PO DAILY PRN 30 Days #30 01/13/21 05/07/21 Unknown Rx tab famotidine 20 mg tablet 20 mg PO BID 30 Days #60 tab 03/27/21 05/07/21 Unknown Rx ibuprofen 800 mg tablet 800 mg PO TID PRN 30 Days #90 tab 03/27/21 05/07/21 Unknown Rx MDD 2 tabs pregabalin 200 mg capsule 200 mg PO TID 30 Days #90 cap 03/27/21 05/07/21 Unknown Rx umeclidinium 62.5 mcg-vilanterol 1 inh INHALATION DAILY 30 Days #60 04/24/21 05/07/21 Unknown Rx 25 mcg/actuation powdr for ea inhalation bupropion HCl 150 mg PO BID 05/07/21 05/07/21 Unknown History fluoxetine 80 mg PO QAM 05/07/21 05/07/21 Unknown History furosemide 20 mg PO QAM 05/07/21 05/07/21 Unknown History lamotrigine 150 mg PO QAM 05/07/21 05/07/21 Unknown History quetiapine 600 mg PO BEDTIME 05/07/21 05/07/21 Unknown History Allergies Allergy/AdvReac Type Severity Reaction Status Date / Time Penicillins Allergy ALGY-Rash Verified 05/07/21 08:50 Current Medications Current Medications Generic Name Dose Route Start Last Admin Trade Name Freq PRN Reason Stop Dose Admin Acetaminophen 650 mg 05/07/21 04:06 05/07/21 17:20 Acetaminophen 325 Mg Tablet PO 650 mg Q6H PRN Administration Mild/Mod Pain Or Temp >/= 101 Albuterol/Ipratropium 3 ml 05/11/21 12:00 05/19/21 11:07 Ipratropium-Albuterol 3 Ml Neb INHALATION 3 ml Q4H.RESPIRATORY DONALD Administration Artificial Tears 1 applic 05/09/21 17:19 05/17/21 08:26 Artificial Tears Op Oint 3.5 Gm EYE-BOTH 1 applic PRN PRN Administration DRY EYE(S) Benzonatate 100 mg 05/07/21 04:06 05/08/21 09:49 Benzonatate 100 Mg Capsule PO 100 mg TID PRN Administration COUGH Budesonide 0.5 mg 05/07/21 08:00 05/19/21 08:12 Budesonide 0.5 Mg/2 Ml Neb INHALATION 0.5 mg BID.RESPIRATORY DONALD Administration Bupropion HCl 150 mg 05/07/21 09:00 05/17/21 08:01 Bupropion Sr (12 Hr) 150 Mg Tablet PO 150 mg Q12H DONALD Administration Buspirone HCl 10 mg 05/09/21 13:30 05/19/21 00:42 Buspirone 10 Mg Tablet PO 10 mg Q12H DONALD Administration Enoxaparin Sodium 40 mg 05/07/21 06:00 05/19/21 05:24 Enoxaparin 40 Mg/0.4 Ml Syringe SUBCUT 40 mg Q24H DONALD Administration Fluoxetine HCl 80 mg 05/09/21 09:00 05/17/21 08:00 Fluoxetine 20 Mg Capsule PO 80 mg DAILY DONALD Administration Furosemide 20 mg 05/07/21 06:00 05/19/21 05:24 Furosemide 20 Mg Tablet PO 20 mg QAM DONALD Administration Guaifenesin/Dextromethorphan 5 ml 05/07/21 04:06 05/08/21 00:25 Guaifenesin-Dextromethorphan Udc 10 Ml PO 5 ml Q6H PRN Administration cough Haloperidol Lactate 1 mg 05/18/21 11:25 05/18/21 11:35 Haloperidol Inj 5 Mg/Ml Inj 1 Ml IVP 1 mg Q4H PRN Administration AGITATION Levofloxacin/Dextrose 750 mg in 150 mls @ 100 mls/hr 05/08/21 18:30 05/19/21 07:30 Levaquin-D5w IV Infused Q24H DONALD Infusion Protocol Propofol 1,000 mg in 100 mls @ 0 mls/hr 05/09/21 14:45 05/19/21 11:19 Diprivan IV 30 mcg/kg/min .Q0M DONALD 20.41 mls/hr Administration Protocol Per Protocol Fentanyl 1,000 mcg/ Sodium 100 mls @ 0 mls/hr 05/09/21 14:45 05/19/21 08:48 Chloride IV 15 mcg/hr .Q0M DONALD 1.5 mls/hr Administration Protocol Per Protocol Norepinephrine Bitartrate 4 mg 254 mls @ 0 mls/hr 05/09/21 16:15 05/10/21 19:00 / Dextrose IV 0 mcg/min .Q0M DONALD 0 mls/hr Titration Protocol Per Protocol dexmedeTOMIDine 0.9 % NaCL 400 mcg in 100 mls @ 0 mls/hr 05/13/21 15:30 05/19/21 05:28 Dexmedetomidine-Ns IV 0.6 mcg/kg/hr .Q0M DONALD 16.49 mls/hr Administration Protocol Per Protocol Vancomycin/PEG/NADA/Lysine/Water 1,250 mg in 250 mls @ 250 mls/hr 05/16/21 16:00 05/19/21 07:30 Vancocin IV Infused Q12H DONALD Infusion Lactulose 20 gm 05/18/21 20:00 05/19/21 07:56 Lactulose Oral Liq 20 Gm/30 Ml Udc PO 20 gm Q12H DONALD Administration Lamotrigine 150 mg 05/07/21 09:00 05/19/21 08:00 Lamotrigine 100 Mg Tablet PO 150 mg DAILY DONALD Administration Lidocaine HCl 4 ml 05/16/21 10:29 05/17/21 11:33 Lidocaine 4% Pf 5 Ml Inj INHALATION 4 ml Q4H.RESPIRATORY PRN Administration COUGH Lorazepam 1 mg 05/18/21 11:23 05/18/21 14:36 Lorazepam 2 Mg/Ml Inj 1 Ml IVP 1 mg Q2H PRN Administration ANXIETY Methylprednisolone Sodium Succinate 40 mg 05/17/21 21:00 05/19/21 08:00 Methylprednisolone Sod Succ 40 Mg/Ml Inj IVP 40 mg Q12H DONALD Administration Pantoprazole Sodium 40 mg 05/13/21 10:00 05/19/21 08:00 Pantoprazole 40 Mg Sdv IVP 40 mg DAILY DONALD Administration Polyethylene Glycol 17 gm 05/18/21 09:00 05/19/21 08:00 Polyethylene Glycol 3350 Pkt 17 Gm PO 17 gm BID DONALD Administration Quetiapine Fumarate 300 mg 05/14/21 21:00 05/18/21 20:23 Quetiapine 300 Mg Tablet PO 300 mg BEDTIME DONALD Administration Senna 8.6 mg 05/11/21 21:00 05/18/21 20:23 Sennosides 8.6 Mg Tablet PO 8.6 mg BEDTIME DONALD Administration PFSH Acute PFSH: Medical History Borderline personality disorder Chronic idiopathic pain syndrome Chronic pain syndrome COPD (chronic obstructive pulmonary disease) DDD (degenerative disc disease), cervical DJD (degenerative joint disease), lumbar GERD (gastroesophageal reflux disease) Hepatitis C, chronic History of intravenous drug abuse Nicotine dependence, cigarettes, with other nicotine-induced disorders Opioid dependence, in remission Other stimulant dependence, in remission Psychiatric care PVD (peripheral vascular disease) with claudication Schizoaffective disorder, bipolar type Surgical History H/O tubal ligation Hx of BKA S/P cholecystectomy S/P tonsillectomy Family History Other CAD (coronary artery disease) Diabetes Lung disease Stroke Social History Smoking and tobacco status: current some day smoker cigarettes Years cigarettes smoked: 40 [ Other cigarette details: Hx of 1 PPD x 40 Years ] Quit status (tobacco): considering quitting Second hand smoke exposure: Yes Smoking risk assessment/counseling performed?: Yes Alcohol intake: former Counseling given: No Counseling given: No Lives independently: Yes Household members: none Marital status: Current occupational status: disabled History of recent travel: No Current gender identity: Female Female Reproductive History: Date of last menstrual period: 10/24/20 Spontaneous abortions: No Vitals/I&O/Wt Last Vital Signs Temp 98.6 F 05/19/21 07:00 Pulse 58 L 05/19/21 11:30 Resp 19 H 05/19/21 12:34 BP 102/67 05/19/21 11:30 Pulse Ox 93 05/19/21 12:34 05/18/21 05/19/21 05/19/21 22:59 06:59 14:59 Intake Total 531.757 / 643.603 7333.553 / 1869.980 620 / 620 Output Total 225 / 1050 650 / 1700 Balance 306.757 / -193.573 363.553 / 169.980 620 / 620 Weight last 48 hrs Weight 242 lb Weight 242 lb Physical Exam Narrative: EXAM NARRATIVE: Patient is intubated,sedated on mechanical ventiation BMI 39.1 Head and neck examination PERRLA no masses no cervical lymphadenopathy no jaundice ETT in place,RT IJ in place,OG tube in place. Cardiac examination audible S1-S2 no murmurs no gallops no arrhythmias Chest is clear bilateral,abscence of Rhonchi or wheezes,no surgical emphysema Abdomen nontender moderatley distended soft no organomegaly guarding or rigidity/no signs of peritonitis Right sided transverse scar. Alcantara catheter in place. Urinary Catheter Management^: 2-way Urethral: Cath Placed During This Visit: yes Reason for Continuing Indwelling Catheter: Accurate Measurement of Urinary Output in Critically Ill Patients Urinary Catheter Date of Insertion: 05/09/21 Urinary Catheter Time of Insertion: 05:30 A&P Assessment and plan (1) Abdominal distention: After limited history taking physical examination and reviewing the chart and images with my personal interpretation of the CT scan of the abdomen and pelvis and further reviewing the images with Dr. Gutierrez radiologist. Patient did have similar changes before on a previous CT scan. Likely the patient does have a large burden of stool and would benefit from starting her gently on GoLYTELY over 8 hours time to effect via the OG tube. Repeated Physical examination Will continue to follow Hod tube feeds for now an dconsider PPN I would advise against enema at this point Thank you for consulting general surgery to participate taking care Status: Acute Consult Attestations Medical Necessity Statement: Per admitting service Time Spent in Patient Care: (>than 50% of time spent in counselling and/or direct pt care on unit). Coding Level of Care Code Acute Orthopedic Designer for [facility] Diagnoses Abdominal distention R14.0
[2021-05-19] MEDS: dexmedeTOMIDine 0.9 % NaCL 400 MCG/100 ML PREMIX 13.74 MCG IV (12:53)
[2021-05-19] MEDS: peg /e-lyte soln 4,000 mL Btl 4000 ML PO (15:06)
--- NOTE | 2021-05-19 15:08 | PC.NURSE ---
Go yury started. To be infused over 8 hours per OGT. Kangaroo pump in use to deliver medication.
[2021-05-19 15:13] LABS: Histoplasma Antigen (Quant) NONE DETECTED; Histoplasma Antigen Interpreta NEGATIVE; Histoplasma Antigen Specimen URINE
--- NOTE | 2021-05-19 15:37 | PM.PN ---
Subjective Subjective: Interval history: The patient was seen and examined. She is intubated and sedated in the ICU. Tries to open her eyes but does not follow any command. The patient is not initiating any breath. Currently she is sedated with propofol, fentanyl and Precedex. CT scan of abdomen and pelvis revealed partial obstruction of small bowel without any point of transition. The transverse colon at maximum diameter is more than 9 cm dilated. The patient is receiving GoLYTELY. The patient is on volume control mechanical ventilation with an FiO2 of 45%. Her procalcitonin level is normal. Medications: Reviewed: Yes Vitals/I&O/Wt Last Vital Signs Temp 98.2 F 05/19/21 15:00 Pulse 54 L 05/19/21 15:27 Resp 14 05/19/21 15:27 BP 107/71 05/19/21 15:00 Pulse Ox 94 05/19/21 15:27 05/19/21 05/19/21 05/19/21 06:59 14:59 22:59 Intake Total 1013.553 / 1869.980 820 / 820 Output Total 650 / 1700 Balance 363.553 / 169.980 820 / 820 Weight last 48 hrs Weight 242 lb Weight 242 lb Physical Exam Narrative: EXAM NARRATIVE: General: Patient is intubated and sedated Neck: No JVD Respiratory: Auscultation: Crackles at bilateral lung bases, no wheezing or rhonchi Cardiovascular: Regular rate and rhythm, S1-S2 present, no murmur, no peripheral edema in left lower extremity. Abdomen: Soft, unable to assess tenderness, firm, positive bowel sound Musculoskeletal: Right lower extremity below-knee amputation Skin: No rash Neuro: Unable to assess mental status due to sedation Urinary Catheter Management^: 2-way Urethral: Cath Placed During This Visit: yes Reason for Continuing Indwelling Catheter: Accurate Measurement of Urinary Output in Critically Ill Patients Urinary Catheter Date of Insertion: 05/09/21 Urinary Catheter Time of Insertion: 05:30 Data : 05/19/21 04:17 05/19/21 04:17 Attestation for Other Data: I personally reviewed and interpreted the following: Other data: I have reviewed the patient's laboratory, microbiologic and radiologic data. The patient has mild leukocytosis. Pro-Ross level is normal. The CT scan of the abdomen and pelvis included the lower part of the chest which revealed consolidation and centrilobular opacity consistent with aspiration event. This would also be consistent with the culture positivity of Streptococcus agalactiae. MRSA PCR from the nares was negative. Blood cultures have been negative. A&P Assessment and plan (1) ARDS (adult respiratory distress syndrome): This is a 61-year-old lady who was initially admitted for ARDS likely from aspiration pneumonia. Since then the patient has improved. Her oxygen requirement is currently about 45%. The primary reason the patient could not be extubated over the past week was because of agitation. The patient has an extensive psychiatric history and drug abuse. Anytime the patient's sedation was reduced the patient became tachycardic, tachypneic, hypoxic after coughing and losing functional residual capacity. Currently the patient is sedated with propofol, fentanyl and Precedex. The plan is going to be increasing the Precedex. Tomorrow morning, will reduce her sedation and when the patient is agitated she will be extubated on Precedex. I believe the patient will be able to maintain her airway. If necessary we will continue with the Precedex and continue with Zyprexa or Haldol. Would avoid benzodiazepines. Status: Acute (2) Respiratory failure with hypoxia: The patient is currently on volume control mechanical ventilation. She is broadly covered with Levaquin and vancomycin. There is no microbiologic evidence of MRSA infection at this time. We will continue the Levaquin for the time being. Her pro-Ross level is 0.05. Status: Acute Qualifiers: Chronicity: acute Qualified Code(s): J96.01 - Acute respiratory failure with hypoxia (3) COPD (chronic obstructive pulmonary disease): We will continue with DuoNeb and Pulmicort nebulization. I am going to discontinue the Solu-Medrol. Status: Acute Qualifiers: COPD type: chronic bronchitis Chronic bronchitis type: simple Qualified Code(s): J41.0 - Simple chronic bronchitis (4) Acute encephalopathy: The patient has toxic metabolic encephalopathy. She is on multiple EYELETTER acting medications for psychiatric history and additionally has a history of drug abuse. Once she is extubated we will optimize her medications. Status: Acute (5) Partial small bowel obstruction: The patient has evidence of partial small bowel obstruction. This is likely secondary to the opioid medication that the patient had been receiving. We have cut down the dose of fentanyl. The patient has bowel sound and there is no transition point. The patient is going to receive GoLYTELY for the next 8 hours. I am hoping she will be able to have bowel movement. Am keeping her intubated today as she is getting GoLYTELY. Tomorrow morning she will get extubated. Status: Acute Attestations Medical Necessity Statement*: Will defer to the primary team primary team Coding Level of Care Code Acute Partition Making Machine Operator for [facility] Diagnoses ARDS (adult respiratory distress syndrome) J80 Respiratory failure with hypoxia J96.01 Chronicity: acute COPD (chronic obstructive pulmonary disease) J41.0 COPD type: chronic bronchitis Chronic bronchitis type: simple Acute encephalopathy G93.40 Partial small bowel obstruction K56.600 Time Spent (min) 37
--- NOTE | 2021-05-19 16:55 | PC.NURSE ---
1500 Attempted to call daughter, alex, in order to facetime with patient. Daughter did not answer phone and has not returned phone call.
--- NOTE | 2021-05-19 17:09 | PM.PN ---
Subjective Subjective: Interval history: Patient was seen this morning, her sedation was weaned early in the morning, however she continues to have episodes of agitation, head thrashing, follow commands for me this morning, remains afebrile, normotensive, on 40% FiO2 Vitals/I&O/Wt Last Vital Signs Temp 98.2 F 05/19/21 15:00 Pulse 54 L 05/19/21 15:27 Resp 14 05/19/21 15:27 BP 107/71 05/19/21 15:00 Pulse Ox 94 05/19/21 15:27 05/19/21 05/19/21 05/19/21 06:59 14:59 22:59 Intake Total 1013.553 / 1869.980 820 / 820 1700 / 2520 Output Total 650 / 1700 425 / 425 Balance 363.553 / 169.980 820 / 820 1275 / 2095 Weight last 48 hrs Weight 109.769 kg Weight 109.769 kg Physical Exam Narrative: EXAM NARRATIVE: Intubated, on sedation, thrashing her head side to side Resp: COMMON NORMALS: normal respiratory effort, No retractions, No use of accessory muscles and clear to auscultation bilaterally AUSCULTATION: clear to auscultation bilaterally Cardio: COMMON NORMALS: regular rate, regular rhythm, S1 normal heart sound present and S2 normal heart sound present RATE: regular rate RHYTHM: regular rhythm HEART SOUNDS: S1 normal heart sound present and S2 normal heart sound present GI: COMMON NORMALS: Normal to inspection, nondistended, normoactive bowel sounds present, Soft to palpation and non-tender PALPATION: Yes Soft to palpation Extremity: COMMON NORMALS: no pedal edema Urinary Catheter Management^: 2-way Urethral: Cath Placed During This Visit: yes Reason for Continuing Indwelling Catheter: Accurate Measurement of Urinary Output in Critically Ill Patients Urinary Catheter Date of Insertion: 05/09/21 Urinary Catheter Time of Insertion: 05:30 Data : 05/19/21 04:17 05/19/21 04:17 A&P Assessment and plan (1) Acute encephalopathy: -Likely multifactorial from hypoxia, COVID-19, polypharmacy, severe anxiety -Minimize sedation, -IV steroids stopped. -We will check lamotrigine level. -Persistent delirium/encephalopathy. EEG obtained, generalized slowing, no epileptiform discharges noted. Status: Acute (2) Respiratory failure with hypoxia: -Secondary to postobstructive pneumonia -So far unresolved encephalopathy has been a barrier to extubation. Attempted wean sedation again today. Continue attempts to wean off fentanyl entirely. Propofol, Precedex subsequently. Continue attempts to wean off mechanical ventilation. Group B strep growing on sputum culture. Continue empiric antibiotic coverage with Levaquin, vancomycin. Pending fungal studies. Negative galactomannan. Negative QuantiFERON gold. Negative PCP induced sputum. Breathing treatments. Status: Acute Qualifiers: Chronicity: acute Qualified Code(s): J96.01 - Acute respiratory failure with hypoxia (3) Pneumonia: As above. Secondary to postobstructive pneumonia, possible aspiration pneumonitis, superimposed on interstitial lung disease, emphysema Intubated 05/09/2021 Status post bronchoscopy, removal of foreign body right middle lobe Respiratory viral panel negative. Negative galactomannan, negative PCP induced sputum. Pending beta D glucan, fungal. Negative TB QuantiFERON gold mycobacterial studies. Status: Acute Qualifiers: Laterality: bilateral Lung location: unspecified part of lung Pneumonia type: due to unspecified organism Qualified Code(s): J18.9 - Pneumonia, unspecified organism (4) COPD exacerbation: Continue Solu-Medrol, budesonide. Nebs. Antibiotics. Status: Acute (5) Interstitial lung disease: Status: Acute Additional A&P Information Cardiac echocardiogram, left ventricular appears to be dilated, diastolic function is normal, moderate pulmonary pretension Hep C positive Right central line in place Hyperammonemia: Minimal, started lactulose Constipation: Unknown last BM, abdomen distended, but nothing at least 4-5 days. X-ray shows ileus versus small bowel obstruction, has minimal liquidy bowel movements, not improved with bowel regimen, will do CT scan abdomen pelvis Attestations Medical Necessity Statement*: Patient requires hospitalization for acute encephalopathy, respiratory failure, constipation, Coding Level of Care Code Acute Fabric Machine Operator for [facility] Diagnoses Acute encephalopathy G93.40 Respiratory failure with hypoxia J96.01 Chronicity: acute Pneumonia J18.9 Laterality: bilateral Lung location: unspecified part of lung Pneumonia type: due to unspecified organism COPD exacerbation J44.1 Interstitial lung disease J84.9
[2021-05-19] MEDS: levofloxacin-dextrose 5 % 750 MG/150 ML PREMIX 100 MG IV (17:40)
--- NOTE | 2021-05-19 18:29 | PC.NURSE ---
Shift Note Frequent safety and comfort rounds continue. Orders and/or nursing care completed as indicated. Patient monitored for response to intervention and treatment(s). Education provided includes treatment plan, planned extubation and medications. Pt able to nod head yes and no appropriately. Will not squeeze hands or follow any other commands. Gtts infusing per orders. Alcantara cath draining freely to BSD. No return call from daughter at this time. Will continue to monitor.
[2021-05-19] MEDS: haloperidol inj 5 mg/mL INJ 1 mL 1 MG IVP (19:18)
[2021-05-19] MEDS: dexmedeTOMIDine 0.9 % NaCL 400 MCG/100 ML PREMIX 21.98 MCG IV ×2 (19:37→22:54)
--- NOTE | 2021-05-19 19:38 | PC.NURSE ---
Patient agitated, coughing aggressively, anxious at shift change. Given PRN meds, sedation uptitrated to achieve more relaxed state. Will continue to taper sedation for extubation in AM but also keep patient calm during shift.
[2021-05-19] MEDS: propofol 1,000 MG/100 ML INJ 17.01 MG IV (21:26)
[2021-05-19] MEDS: quetiapine 300 mg Tablet PO (21:55)
--- NOTE | 2021-05-19 22:40 | XRR_ITS ---
PROCEDURE INFORMATION: Exam: XR Abdomen Exam date and time: 05/19/2021 10:40 PM Age: 61 years old Clinical indication: Device placement; Gi device; Other: Og tube placement TECHNIQUE: Imaging protocol: XR of the abdomen. Views: Frontal supine view of the abdomen. 1 View. COMPARISON: CT abdomen pelvis w con* [id number] 05/19/2021 9:13 AM FINDINGS: Tubes, catheters and devices: Enteric tube tip is over the antrum of the stomach (distal stomach). Gastrointestinal tract: Normal. No bowel dilation. Bones/joints: Unremarkable. Other findings: There are postoperative changes over the abdomen. XR/XR KUB portable [id number] IMPRESSION: Enteric tube tip is over the antrum of the stomach (distal stomach). Radiation Dose CTDIVOL = (mGy): DLP = (mGy-cm)
--- NOTE | 2021-05-19 22:54 | PC.NURSE ---
Patient had burping sounds coming from around OG tube. KUB reviewed, OG advanced. Contacted vehicle fare collector for additional KUB to check for placement, order received.
[2021-05-20] VITALS (57 sets, daily range): BP systolic 93–161; BP diastolic 50–78; PULSE 49–69; RESP 11–29; TEMP 36.6–37.5; O2SAT 87–95
[2021-05-20] MEDS: BuSPIRONE 10 mg Tablet PO ×2 (00:50→13:52)
[2021-05-20] MEDS: dexmedeTOMIDine 0.9 % NaCL 400 MCG/100 ML PREMIX 32.97 MCG IV ×7 (00:50→19:19)
[2021-05-20] MEDS: ipratropium-albuterol 3 mL Neb INHALATION ×5 (03:02→20:03)
[2021-05-20 03:26] LABS: ABG PH Result 7.48 (7.35-7.45); Arterial Blood Gas Hematocrit 36.6 % (37-47); Base Excess ABG 6.9 mmol/L (-2.0-2.0); Blood Gas Allen Test Pos; Blood Gas Sample Site Radial, right; Blood Gas Sample Type Arterial; Blood Gas Tidal Volume 0.45; HCO3 ABG 31.2 mmol/L (22-26); Oxygen Device VENT; PO2 ABG 54.5 mmHg (80.0-100.0)
[2021-05-20 04:45] LABS: Basophils % 0.2 %; Eosinophils % 0.2 %; Hematocrit 37.2 % (37.0-47.0); Hemoglobin 11.7 g/dL (11.5-15.3); Lymphocytes # 2.1 10^3/uL (0.8-4.8); Lymphocytes % 18.5 %; Mean Corpuscular HGB Conc 31.5 g/dL (30.0-36.0); Mean Corpuscular Volume 92.3 fl (81-99); Mean Platelet Volume 8.8 fL (7.4-10.4); Monocytes # 1.1 10^3/uL (0.2-0.9); Monocytes % 9.8 %; Neutrophils # 7.96 10^3/uL (1.8-7.7); Neutrophils % 69.6 %; Nucleated Red Blood Cells % 0 %; Platelet Count 341 10^3/cmm (130-400); Red Blood Count 4.03 10^6/uL (4.1-5.3); Red Cell Distribution Width 13.2 % (12.1-15.1); White Blood Count 11.4 10^3/uL (4.0-10.0)
[2021-05-20 05:08] LABS: INR 1.04 (0.8-1.2)
[2021-05-20 05:10] LABS: D Dimer 1.14 ug/mIFEU (0-0.59)
[2021-05-20 05:17] LABS: Lactate (Lactic Acid level) 1.1 mmol/L (0.5-2.2)
[2021-05-20 05:39] LABS: Alanine Aminotransferase 16 U/L (0-33); Albumin Level 3.5 g/dL (3.5-5.2); Alkaline Phosphatase 100 IU/L (35-105); Anion Gap 15.2 (5-19); Aspartate Amino Transferase 11 U/L (0-32); Blood Urea Nitrogen 17 mg/dL (6-20); C Reactive Protein 20.8 mg/L (0.0-4.9); Calcium 9.3 mg/dL (8.5-10.5); Carbon Dioxide 30 mmol/L (22-29); Chloride 96 mmol/L (98-107); Creatinine Clr Calc Pharmacy 151.6735; Globulin 2.7 g/dL (1.3-4.6); Glomerular Filtration Rate 126.3 mL/min (90-130); Glucose 146 mg/dL (65-115); Magnesium 1.9 mg/dL (1.7-2.3); Osmolality Calculated 290 mOsm/kg (285-295); Phosphorus 2.7 mg/dL (2.5-4.5); Potassium 3.2 mmol/L (3.5-5.1); Sodium 138 mmol/L (136-145); Total Bilirubin 0.6 mg/dL (0.15-1.2); Total Protein 6.2 g/dL (6.6-8.7)
[2021-05-20 05:46] LABS: NT Pro B Type Natriuretic Pept 104 pg/mL (0-125); Procalcitonin 0.05 ng/mL (0-0.5)
[2021-05-20] MEDS: enoxaparin 40 mg/0.4 mL Syringe SUBCUT (05:58)
[2021-05-20] MEDS: propofol 1,000 MG/100 ML INJ 6.8 MG IV (06:00)
[2021-05-20 06:06] LABS: Creatine Phosphokinase 54 U/L (26-192)
--- NOTE | 2021-05-20 06:08 | PC.NURSE ---
Shift Note Frequent safety and comfort rounds continue. Orders and/or nursing care completed as indicated. Patient monitored for response to intervention and treatment(s). Education provided includes vent management. Patient and/or delivery representative shook head back and forth. Will continue to monitor.
--- NOTE | 2021-05-20 06:09 | PC.NURSE ---
Addendum entered by Hai Loredo RN 05/20/21 06:41: Orders received for cxr Addendum entered by Hai Loredo RN 05/20/21 06:15: Patient also has noted to continuously cough when sedation lifted, suction multiple times throughout the night, scant amount of secretions obtained. Original Note: Patient projectile vomited large amounts of bile, possibly aspirated most of it. OG hooked up to low suction, 500cc out in canister, bile looking. OG hooked up to LIS. Notified provider, awaiting orders.
--- NOTE | 2021-05-20 06:38 | XRR_ITS ---
PROCEDURE INFORMATION: Exam: XR Chest Exam date and time: 05/20/2021 6:38 AM Age: 61 years old Clinical indication: Other: Follow up; Patient HX: PT on vent, foloow up; Additional info: Possible aspiration TECHNIQUE: Imaging protocol: XR of the chest. Views: 1 view. Total images: 1 COMPARISON: CR (CHEST, ) 05/19/2021 5:29 AM FINDINGS: Tubes, catheters and devices: Tubes and catheters are unchanged from the prior exam. Multiple surgical clips are present. Lungs: Bilateral pulmonary opacities are again noted with the left-sided opacities showing interval improvement. Pleural spaces: Unremarkable. No pleural effusion. No pneumothorax. Heart/Mediastinum: Low lung volumes are present, accentuating cardiac size and pulmonary markings. Heart size is stable when compared to the prior exam. Bones/joints: Osseous structures are unchanged from the prior exam. XR/XR chest 1V portable [id number] IMPRESSION: 1. Tubes and catheters are unchanged from the prior exam. 2. Low lung volumes are present, accentuating cardiac size and pulmonary markings. 3. Bilateral pulmonary opacities are again noted with the left-sided opacities showing interval improvement. Radiation Dose CTDIVOL = (mGy): DLP = (mGy-cm)
[2021-05-20] MEDS: budesonide 0.5 mg/2 mL Neb INHALATION ×2 (07:55→20:03)
[2021-05-20] MEDS: pantoprazole 40 mg SDV IVP (07:59)
--- NOTE | 2021-05-20 08:04 | XRR_ITS ---
PROCEDURE INFORMATION: Exam: XR Abdomen Exam date and time: 05/20/2021 8:04 AM Age: 61 years old Clinical indication: Condition or disease; Intestinal condition; Obstruction; Additional info: Sbo TECHNIQUE: Imaging protocol: XR of the abdomen. Views: Frontal supine view of the abdomen. 1 View. COMPARISON: CR (ABDOMEN, ) 05/19/2021 10:42 PM FINDINGS: Tubes, catheters and devices: There is an enteric tube looped in the stomach. The tip is either in the gastric antrum or proximal duodenum. Gastrointestinal tract: There are persistent gas-filled distended loops of small bowel and the cecum which is felt to be rotated medially. Paucity of gas in the pelvis. Bones/joints: Prior left total hip arthroplasty. Curvature of the lumbar spine convex to the right associated with multilevel degenerative changes. Soft tissues: Multiple bilateral calcified buttocks injection granulomas. XR/XR KUB portable [id number] IMPRESSION: Gas-filled distended small bowel and proximal colon which could be due to bowel obstruction or an ileus. Radiation Dose CTDIVOL = (mGy): DLP = (mGy-cm)
[2021-05-20] MEDS: FUROsemide 20 mg Tablet PO (08:09)
[2021-05-20] MEDS: polyethylene glycol 3350 Pkt 17 gm PO (08:10)
[2021-05-20] MEDS: lamoTRIgine 100 mg Tablet 150 MG PO (08:10)
[2021-05-20] MEDS: lidocaine 1% 5 ML in potassium chloride premix 100 ML 25 ML IV (08:20)
--- NOTE | 2021-05-20 09:09 | XRR_ITS ---
PROCEDURE INFORMATION: Exam: XR Chest Exam date and time: 05/20/2021 9:09 AM Age: 61 years old Clinical indication: Device placement; Ng tube; Additional info: Ng tube confirmation TECHNIQUE: Imaging protocol: XR of the chest. Views: 1 view. COMPARISON: CR XR chest 1V portable [id number] 05/20/2021 6:55 AM FINDINGS: Tubes, catheters and devices: There is an enteric tube present with the tip in the decompressed stomach. There is an endotracheal tube present though the tip is obscured by overlying ECG wires. However, the tip is felt to be above the parag. Lungs: Increased lung volumes. Pleural spaces: The right lateral pleural space is not on the image. No large pleural effusions. Heart/Mediastinum: The cardiac silhouette is not enlarged. Bones/joints: No acute osseous abnormality Intraperitoneal space: Dilated gas-filled loops of bowel present in the upper abdomen. XR/XR chest 1V portable [id number] IMPRESSION: Enteric tube tip in the stomach. Radiation Dose CTDIVOL = (mGy): DLP = (mGy-cm)
--- NOTE | 2021-05-20 09:18 | P.PN_ITS ---
Subjective Subjective: Interval history: Patient remains intubated on mechanical ventilation, had one episode of vomiting about 700 mL and the OG was placed to low intermittent wall suction. Medications: Reviewed: Yes Vitals/I&O/Wt Last Vital Signs Temp 97.9 F 05/20/21 00:00 Pulse 56 L 05/20/21 08:13 Resp 17 05/20/21 07:57 BP 127/62 05/20/21 06:00 Pulse Ox 94 05/20/21 07:57 05/19/21 05/20/21 05/20/21 22:59 06:59 14:59 Intake Total 2137.400 / 2957.400 1115.445 / 4072.845 100 / 100 Output Total 425 / 425 850 / 1275 Balance 1712.400 / 2532.400 265.445 / 2797.845 100 / 100 Weight last 48 hrs Weight 241 lb Weight 242 lb Physical Exam Narrative: EXAM NARRATIVE: Patient is intubated,sedated on mechanical ventiation BMI 39.1 Head and neck examination PERRLA no masses no cervical lymphadenopathy no jaundice ETT in place,RT IJ in place. Patient is in the interim to have an NG tube Abdomen nontender less distended soft no organomegaly guarding or rigidity/no signs of peritonitis Right sided transverse scar. Alcantara catheter in place. Urinary Catheter Management^: 2-way Urethral: Cath Placed During This Visit: yes Reason for Continuing Indwelling Catheter: Accurate Measurement of Urinary Output in Critically Ill Patients Urinary Catheter Date of Insertion: 05/09/21 Urinary Catheter Time of Insertion: 05:30 Data : 05/21/21 04:05 05/21/21 04:05 A&P Assessment and plan (1) Abdominal distention: Advised to insert NG tube prior to extubation and have it low intermittent wall suction Hold tube feeds for now and consider PPN We will continue to follow on the patient clinically Thank you for consulting general surgery to participate taking care Status: Acute Attestations Medical Necessity Statement*: Per admitting service Time Spent in Patient Care: (>than 50% of time spent in counselling and/or direct pt care on unit) . Coding Level of Care Code Acute Aqueduct And Reservoir Keeper for Dorcas Oliver Diagnoses Abdominal distention R14.0
--- NOTE | 2021-05-20 10:58 | PM.PN ---
Subjective Subjective: Interval history: The patient was seen and examined this morning. She was successfully extubated. Currently on 2 L oxygen via nasal cannula. The patient is answering questions appropriately. Unfortunately, the patient had an episode of vomiting this morning followed by aspiration prior to extubation. However that did not affect her oxygenation. The abdominal distention is persisting. The patient is complaining of mild discomfort and tenderness to palpation. Medications: Reviewed: Yes Vitals/I&O/Wt Last Vital Signs Temp 97.9 F 05/20/21 00:00 Pulse 65 05/20/21 10:00 Resp 15 05/20/21 10:00 BP 106/75 05/20/21 10:00 Pulse Ox 89 L 05/20/21 10:00 05/19/21 05/20/21 05/20/21 22:59 06:59 14:59 Intake Total 2137.400 / 2957.400 1115.445 / 4072.845 304.345 / 304.345 Output Total 425 / 425 850 / 1275 500 / 500 Balance 1712.400 / 2532.400 265.445 / 2797.845 -195.655 / -195.655 Weight last 48 hrs Weight 241 lb Weight 242 lb Physical Exam Narrative: EXAM NARRATIVE: General: Patient is awake alert and oriented, answering questions following commands Neck: No JVD Respiratory: Auscultation: Crackles at bilateral lung bases, no wheezing or rhonchi Cardiovascular: Regular rate and rhythm, S1-S2 present, no murmur, no peripheral edema in left lower extremity. Abdomen: Firm, mild diffuse tenderness, sluggish bowel sound Musculoskeletal: Right lower extremity below-knee amputation Skin: No rash Neuro: No gross motor deficit Urinary Catheter Management^: 2-way Urethral: Cath Placed During This Visit: yes Reason for Continuing Indwelling Catheter: Accurate Measurement of Urinary Output in Critically Ill Patients Urinary Catheter Date of Insertion: 05/09/21 Urinary Catheter Time of Insertion: 05:30 Data : 05/20/21 04:10 05/20/21 04:10 Attestation for Other Data: I personally reviewed and interpreted the following: Other data: I have reviewed the patient's laboratory, microbiologic and radiologic data. Stable minimal leukocytosis. The patient is developing metabolic alkalosis and hypokalemia. Chest x-ray this morning revealed less airspace opacity. A&P Assessment and plan (1) ARDS (adult respiratory distress syndrome): The patient was successfully extubated this morning. She had an episode of vomiting and aspiration. Her antibiotic was switched to imipenem. The patient had been intubated for more than 10 days and will cover her for resistant gram-negative organisms for now. Status: Acute (2) Respiratory failure with hypoxia: The patient is currently on 2 L nasal cannula and doing well. The patient will need aggressive physical therapy. The central line needs to come out. Status: Acute Qualifiers: Chronicity: acute Qualified Code(s): J96.01 - Acute respiratory failure with hypoxia (3) COPD (chronic obstructive pulmonary disease): We will continue with DuoNeb and Pulmicort nebulization. No systemic steroid. Status: Acute Qualifiers: COPD type: chronic bronchitis Chronic bronchitis type: simple Qualified Code(s): J41.0 - Simple chronic bronchitis (4) Acute encephalopathy: The patient is awake alert and oriented at this point. She is following commands. We will continue with low-dose Precedex. We will optimize her outpatient therapy once the small bowel partial obstruction gets better. Status: Acute (5) Partial small bowel obstruction: No bowel movement after the GoLYTELY. Now that the patient is extubated will be able to get rid of all opioid. We will consider trying with methylnaltrexone in the future. For now, the patient will be managed conservatively. The surgical team is following the patient. The patient has mild metabolic alkalosis. We will replete electrolytes and maintain acid-base status accordingly. Status: Acute Attestations Medical Necessity Statement*: Will defer to the primary team Coding Level of Care Code Acute Ship Design Teacher for Dorcas Oliver Diagnoses ARDS (adult respiratory distress syndrome) J80 Respiratory failure with hypoxia J96.01 Chronicity: acute COPD (chronic obstructive pulmonary disease) J41.0 COPD type: chronic bronchitis Chronic bronchitis type: simple Acute encephalopathy G93.40 Partial small bowel obstruction K56.600 Time Spent (min) 37
--- NOTE | 2021-05-20 15:10 | PC.NUTR ---
Nutrition follow up: Noted that PPN suggested per Dr. Welch notes on 05/19 and 05/20. Agree with this recommendation, given partial SBO and no kcal provision since 05/17. If unable to safetly resume TF or po intake, suggest PPN. RD available for further recommendations as needed. See full RD assessments for further details.
[2021-05-20] MEDS: haloperidol inj 5 mg/mL INJ 1 mL 1 MG IVP ×2 (16:26→20:36)
--- NOTE | 2021-05-20 17:03 | PM.PN ---
Subjective Subjective: Interval history: Patient was seen this morning, she was only on Precedex for sedation, following commands, squeezing my fingers, nodding her head, she had done well early with her spontaneous breathing trial, overnight she did have an episode of bilious vomiting, NG tube placement yielded 700 cc of bilious output, her abdomen is a bit more distended today, bowel sounds are present, has not had a bowel movement. As patient's cognition has significantly improved, I discussed with pulmonary service and surgical service, right now would be our best window for extubation, certainly she does run the risk of reintubation if she requires surgical intervention for small bowel obstruction or develops aspiration pneumonia. However her mentation has been in barrier to her extubation for the last week, and as her mentation has significantly improved and she is following commands right now would give her the best opportunity for extubation in a trial of extubation. Patient was successfully extubated early in the morning, onto 2 L nasal cannula, she followed commands, had a strong cough, Patient was reexamined throughout the afternoon, she had episodes of confusion, yelling out in the ICU, but was redirectable, Vitals/I&O/Wt Last Vital Signs Temp 97.9 F 05/20/21 00:00 Pulse 59 L 05/20/21 16:01 Resp 18 05/20/21 16:01 BP 119/68 05/20/21 14:00 Pulse Ox 94 05/20/21 16:01 05/20/21 05/20/21 05/20/21 06:59 14:59 22:59 Intake Total 1115.445 / 4072.845 609.345 / 609.345 Output Total 850 / 1275 500 / 500 Balance 265.445 / 2797.845 109.345 / 109.345 Weight last 48 hrs Weight 109.316 kg Weight 109.769 kg Physical Exam Const: COMMON NORMALS: no acute distress GENERAL APPEARANCE: anxious ORIENTATION/CONSCIOUSNESS: Yes awake, Yes oriented to person and Yes oriented to place Resp: COMMON NORMALS: normal respiratory effort, No retractions, No use of accessory muscles and clear to auscultation bilaterally AUSCULTATION: clear to auscultation bilaterally Cardio: COMMON NORMALS: regular rate, regular rhythm, S1 normal heart sound present and S2 normal heart sound present RATE: regular rate RHYTHM: regular rhythm HEART SOUNDS: S1 normal heart sound present and S2 normal heart sound present GI: COMMON NORMALS: Normal to inspection, nondistended, normoactive bowel sounds present, Soft to palpation and non-tender PALPATION: Yes Soft to palpation Extremity: COMMON NORMALS: no pedal edema Neuro: SENSORIUM/ORIENTATION: Yes oriented to person and Yes oriented to place Urinary Catheter Management^: 2-way Urethral: Cath Placed During This Visit: yes Reason for Continuing Indwelling Catheter: Accurate Measurement of Urinary Output in Critically Ill Patients Urinary Catheter Date of Insertion: 05/09/21 Urinary Catheter Time of Insertion: 05:30 Data : 05/20/21 04:10 05/20/21 04:10 A&P Assessment and plan (1) Acute encephalopathy: -Extubated, follows commands, but does have episodes of agitation -Likely multifactorial from hypoxia, COVID-19, polypharmacy, severe anxiety -Minimize sedation, -IV steroids stopped. -Persistent delirium/encephalopathy. EEG obtained, generalized slowing, no epileptiform discharges noted. Status: Acute (2) Respiratory failure with hypoxia: -Extubated 05/20/2021 -Secondary to postobstructive pneumonia -Had aspiration event this morning -Group B strep growing on sputum culture. Pending fungal studies. Negative galactomannan. Negative QuantiFERON gold. Negative PCP induced sputum. -We will start on Primaxin Status: Acute Qualifiers: Chronicity: acute Qualified Code(s): J96.01 - Acute respiratory failure with hypoxia (3) Pneumonia: As above. Secondary to postobstructive pneumonia, possible aspiration pneumonitis, superimposed on interstitial lung disease, emphysema, now aspiration event Intubated 05/09/2021 Extubated 05/20/2021 Status post bronchoscopy, removal of foreign body right middle lobe Respiratory viral panel negative. Negative galactomannan, negative PCP induced sputum. Pending beta D glucan, fungal. Negative TB QuantiFERON gold mycobacterial studies. Status: Acute Qualifiers: Laterality: bilateral Lung location: unspecified part of lung Pneumonia type: due to unspecified organism Qualified Code(s): J18.9 - Pneumonia, unspecified organism (4) COPD exacerbation: budesonide. Nebs. Antibiotics. Status: Acute (5) Interstitial lung disease: Status: Acute (6) Partial small bowel obstruction: -General surgery on consult -NG tube in place, low intermittent suction -We will give 1 dose of methylnaltrexone -Serial abdominal exams, monitor for bowel movements, avoid opiates Status: Acute (7) Pulmonary hypertension: Status: Acute Additional A&P Information Cardiac echocardiogram, left ventricular appears to be dilated, diastolic function is normal, moderate pulmonary pretension Hep C positive Right central line in place Hyperammonemia: Minimal, started lactulose Constipation: Unknown last BM, abdomen distended, but nothing at least 4-5 days. X-ray shows ileus versus small bowel obstruction, has minimal liquidy bowel movements, not improved with bowel regimen, will do CT scan abdomen pelvis Attestations Medical Necessity Statement*: Patient requires hospitalization for acute encephalopathy, acute respiratory failure, pneumonia, aspiration Coding Level of Care Code Acute Capacity Planning Engineer for [facility] Fwd Diagnoses Acute encephalopathy G93.40 Respiratory failure with hypoxia J96.01 Chronicity: acute Pneumonia J18.9 Laterality: bilateral Lung location: unspecified part of lung Pneumonia type: due to unspecified organism COPD exacerbation J44.1 Interstitial lung disease J84.9 Partial small bowel obstruction K56.600 Pulmonary hypertension I27.20
--- NOTE | 2021-05-20 17:14 | PC.PT ---
Attempted evaluation earlier today this afternoon, patient had soiled the bed, alerted nursing staff to same, returned at this time to reattempt evaluation patient yelling very loudly and continues to be confused, will reattempt tomorrow.
--- NOTE | 2021-05-20 17:16 | ECG_ITS ---
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
[2021-05-20] MEDS: methylnaltrexone 12 /0.6 mL INJ 12 MG SUBCUT (17:49)
--- NOTE | 2021-05-20 18:25 | PC.NURSE ---
Shift Note Frequent safety and comfort rounds continue. Orders nursing care completed as indicated. Pt extubated and placed on 4L NC this afternoon, tolerating well. When OG was removed, NG placed x-ray confirmed placement. Pt had moderate liquid BM this evening, pt received linen change and bath. PT and ST order, awaiting evaluations. Pt complains of right shoulder pain with movement, physician notified x-ray ordered. Pt continues to yell very loudly and begs nursing staff to stay in room with her. Pt educated on lowering voice due to complains from other patients in the unit, pt continue to yell very loudly. Patient monitored for response to intervention and treatments. Daughter called and updated on patient's status, verbalized understanding- will call back again tomorrow. Will continue to monitor.
--- NOTE | 2021-05-20 18:37 | XR_ITS ---
WS: [id number] Right shoulder, 2 views, 05/20/2021 Clinical Data: right shoulder pain with movement Comparison: Right shoulder, 09/08/2018. Findings: There is sclerosis, flattening and cyst formation of the right humeral head. The adjacent glenoid kody ws sclerosis. There is narrowing of the shoulder joint. There is moderate osteoarthritis of the right AC joint. There is a right internal jugular venous catheter and oral gastric tube noted. There is a small right pleural effusion and pulmonary vascular congestion. There is no change from the prior right shoulder. XR/XR shoulder RT 1V [id number] Impression: 1. Probable osteoarthritis of the right shoulder joint with sclerosis, cyst for mation and narrowing. 2. Mild osteoarthritis of the right AC joint. 3. Small right pleural effusion and pulmonary vascular congestion.
[2021-05-20] MEDS: quetiapine 300 mg Tablet PO (20:36)
[2021-05-20] MEDS: LORazepam 2 mg/mL INJ 1 mL 1 MG IVP (21:15)
[2021-05-20] MEDS: dexmedeTOMIDine 0.9 % NaCL 400 MCG/100 ML PREMIX 41.22 MCG IV (22:48)
[2021-05-21] VITALS (57 sets, daily range): BP systolic 103–153; BP diastolic 69–111; PULSE 50–132; RESP 15–39; TEMP 37.2–38.3; O2SAT 85–98
[2021-05-21] MEDS: dexmedeTOMIDine 0.9 % NaCL 400 MCG/100 ML PREMIX 41.22 MCG IV ×4 (00:46→07:36)
[2021-05-21] MEDS: LORazepam 2 mg/mL INJ 1 mL 1 MG IVP (01:14)
[2021-05-21] MEDS: BuSPIRONE 10 mg Tablet PO ×2 (02:22→13:07)
[2021-05-21] MEDS: enoxaparin 40 mg/0.4 mL Syringe SUBCUT (05:03)
[2021-05-21] MEDS: FUROsemide 20 mg Tablet PO (05:03)
[2021-05-21 05:14] LABS: Basophils % 0.1 %; Eosinophils # 0.1 10^3/uL (0.0-0.8); Eosinophils % 0.7 %; Hematocrit 32.2 % (37.0-47.0); Hemoglobin 10.6 g/dL (11.5-15.3); Lymphocytes # 1.6 10^3/uL (0.8-4.8); Lymphocytes % 17.4 %; Mean Corpuscular HGB Conc 32.9 g/dL (30.0-36.0); Mean Corpuscular Hemoglobin 29.2 pg (28.0-34.0); Mean Corpuscular Volume 88.7 fl (81-99); Mean Platelet Volume 9.1 fL (7.4-10.4); Monocytes # 0.9 10^3/uL (0.2-0.9); Neutrophils # 6.47 10^3/uL (1.8-7.7); Neutrophils % 70.7 %; Nucleated Red Blood Cells % 0 %; Platelet Count 314 10^3/cmm (130-400); Red Blood Count 3.63 10^6/uL (4.1-5.3); Red Cell Distribution Width 13.2 % (12.1-15.1); White Blood Count 9.1 10^3/uL (4.0-10.0)
[2021-05-21 05:21] LABS: INR 1.09 (0.8-1.2)
[2021-05-21 05:24] LABS: D Dimer 0.69 ug/mIFEU (0-0.59)
[2021-05-21 05:31] LABS: Lactate (Lactic Acid level) 0.6 mmol/L (0.5-2.2)
[2021-05-21 05:34] LABS: Alanine Aminotransferase 12 U/L (0-33); Alkaline Phosphatase 82 IU/L (35-105); Anion Gap 14.9 (5-19); Aspartate Amino Transferase 13 U/L (0-32); Blood Urea Nitrogen 13 mg/dL (6-20); C Reactive Protein 66.1 mg/L (0.0-4.9); Calcium 8.5 mg/dL (8.5-10.5); Carbon Dioxide 27 mmol/L (22-29); Chloride 102 mmol/L (98-107); Globulin 2.9 g/dL (1.3-4.6); Glomerular Filtration Rate 163.4 mL/min (90-130); Glucose 134 mg/dL (65-115); Magnesium 1.7 mg/dL (1.7-2.3); Osmolality Calculated 294 mOsm/kg (285-295); Phosphorus 2.7 mg/dL (2.5-4.5); Sodium 141 mmol/L (136-145); Total Bilirubin 0.6 mg/dL (0.15-1.2); Total Protein 5.9 g/dL (6.6-8.7)
[2021-05-21 05:45] LABS: NT Pro B Type Natriuretic Pept 279 pg/mL (0-125); Procalcitonin 0.07 ng/mL (0-0.5)
[2021-05-21 05:48] LABS: Potassium 2.9 mmol/L (3.5-5.1)
--- NOTE | 2021-05-21 06:00 | ECG_ITS ---
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
--- NOTE | 2021-05-21 06:01 | PC.NURSE ---
Relayed low labs to Dr. Ocasio (, [facility] [place] received.
[2021-05-21 06:02] LABS: Creatine Phosphokinase 104 U/L (26-192)
--- NOTE | 2021-05-21 06:07 | PC.NURSE ---
Shift Note Patient belligerent at beginning of shift, unable to redirect. Precedex increased to 1.5mcg/kg/hr, ativan given per MAR. Patient able to rest. BMx1. Good uop. Frequent safety and comfort rounds continue. Orders and/or nursing care completed as indicated. Patient monitored for response to intervention and treatment(s). Education provided includes plan of care. Patient and/or environmental marketing representative not able to comprehend. Will continue to monitor.
[2021-05-21] MEDS: lidocaine 1% 5 ML in potassium chloride premix 100 ML 25 ML IV ×2 (06:21→11:58)
--- NOTE | 2021-05-21 07:00 | XR_ITS ---
WS: [id number] KUB, AP portable supine, 05/21/2021 Clinical Data: PARTIAL SBO Comparison: Portable KUB, 05/20/2021 Findings: The air in the small bowel or colon remains same. The nasogastric tube is curled in the stomach. Ther e are multiple clips in the central abdomen. The left hip arthroplasty is noted. There is a dextrosco liosis. There are injection granulomas in the buttocks. XR/XR KUB portable [id number] Impression: No change in severe ileus or possible bowel obstruction.
[2021-05-21] MEDS: magnesium citrate Btl 296 mL PO (07:36)
[2021-05-21] MEDS: ipratropium-albuterol 3 mL Neb INHALATION ×5 (08:10→23:57)
[2021-05-21] MEDS: budesonide 0.5 mg/2 mL Neb INHALATION ×2 (08:10→20:13)
[2021-05-21] MEDS: pantoprazole 40 mg SDV IVP (08:53)
[2021-05-21] MEDS: lamoTRIgine 100 mg Tablet 150 MG PO (08:55)
[2021-05-21] MEDS: polyethylene glycol 3350 Pkt 17 gm PO ×2 (09:00→17:34)
[2021-05-21] MEDS: ondansetron 2 mg/ML SDV 2 mL 4 MG IVP (09:23)
--- NOTE | 2021-05-21 09:29 | P.PN_ITS ---
Subjective Subjective: Interval history: The patient was seen and examined. She is on Precedex and sleepy. She is arousable and able to answer simple questions by nodding her head however she falls right back asleep. It appears that the patient had received sedative medications yesterday for p erceived agitation. The patient had a bowel movement after receiving methylnaltrexone. Medications: Reviewed: Yes Vitals/I&O/Wt Last Vital Signs Temp 98.9 F 05/21/21 00:00 Pulse 56 L 05/21/21 08:19 Resp 16 05/21/21 08:14 BP 117/70 05/21/21 02:00 Pulse Ox 93 05/21/21 08:14 05/20/21 05/21/21 05/21/21 22:59 06:59 14:59 Intake Total 408.796 / 1018.141 699.625 / 1717.766 110.992 / 110.992 Output Total 1950 / 2450 Balance 408.796 / 518.141 -1250.375 / -732.234 110.992 / 110.992 Weight last 48 hrs Weight 241 lb Weight 241 lb Physical Exam Narrative: EXAM NARRATIVE: General: Patient is sleeping but arousable, tries to answer simple questions Neck: No JVD Respiratory: Auscultation: Crackles at bilateral lung bases, no wheezing or rhonchi Cardiovascular: Regular rate and rhythm, S1-S2 present, no murmur, no peripheral edema in left lower extremity. Abdomen: Softer, no perceived tenderness, improvement of bowel sound Musculoskeletal: Right lower extremity below-knee amputation Skin: No rash Neuro: Moving all extremities spontaneously Urinary Catheter Management^: 2-way Urethral: Cath Placed During This Visit: yes Reason for Continuing Indwelling Catheter: Accurate Measurement of Urinary Output in Critically Ill Patients Urinary Catheter Date of Insertion: 05/09/21 Urinary Catheter Time of Insertion: 05:30 Data : 05/21/21 04:05 05/21/21 04:05 Attestation for Other Data: I personally reviewed and interpreted the following: Other data: I have reviewed her laboratory, [place] and radiologic data. The abdominal x-ray is suboptimal in quality however and the bowel loop distention appears to be less. The patient has hypokalemia A&P Assessment and plan (1) ARDS (adult respiratory distress syndrome): The patient was successfully extubated on May 20 Currently on imipenem will stop after a 5-day of therapy. There is no evidence of worsening pneumonia at this time Status: Acute (2) Respiratory failure with hypoxia: The patient is currently on 2 L nasal cannula and doing well. We are going to discontinue the Precedex as soon as possible. The patient needs to be out of bed and participating in physical therapy. Staying in bed will likely increase the risk of atelectasis and subsequent pneumonia development. If necessary, the patient can be given Haldol. Now that the patient is having bowel movement, we can restart her home medications slowly. The benzodiazepines should be absolutely avoided. Status: Acute Qualifiers: Chronicity: acute Qualified Code(s): J96.01 - Acute respiratory failure with hypoxia (3) COPD (chronic obstructive pulmonary disease): We will continue with DuoNeb and Pulmicort nebulization. No systemic st eroid. Status: Acute Qualifiers: COPD type: chronic bronchitis Chronic bronchitis type: simple Qualified Code(s): J41.0 - Simple chronic bronchitis (4) Acute encephalopathy: Her mental status has improved significantly. I am hoping for her to make ongoing recovery. Status: Acute (5) Partial small bowel obstruction: This was likely secondary to opioid. There is no evidence of mechanical obstruction. The patient had bowel movement with methylnaltrexone yesterday. We will continue with supportive therapy. Status: Acute Attestations Medical Necessity Statement*: Will defer to the primary team Coding Level of Care Code Acute Veterinary Anatomist for [facility] Diagnoses ARDS (adult respiratory distress syndrome) J80 Respiratory failure with hypoxia J96.01 Chronicity: acute COPD (chronic obstructive pulmonary disease) J41.0 COPD type: chronic bronchitis Chronic bronchitis type: simple Acute encephalopathy G93.40 Partial small bowel obstruction K56.600 Time Spent (min) 32
--- NOTE | 2021-05-21 09:47 | PC.CHAP ---
Pastoral Care Encounter/Spiritual Assessment Type of Contact [] Declined visor installer visit [] Patient/Family/Request visit [] Outpatient visit [] Follow-up visit [] Physician referral [] Code/Alert [x] Routine visit [] Staff referral [] Actively dying [x] Patient sleeping [] Family support [] [] Out of room [] Palliative care [] [x] Receiving care in room [] Pre-surgical visit [] Trauma [] Long length of stay [x] ICU visit [x] Other: oxygen Relational/Emotional Strength [] Patient feels connected with others/family/visitors/staff [] Distress [] Loneliness/isolation [] Abandonment Spirituality of Patient [] Person of Love [] Attends Congregational of their Love [] Believes in Prayer [] Reads Bible or Restorationist materials [] There are Spiritual issues to be addressed Set Up Operator Tool Interventions [x] Prayer [] Active listening [] Non-anxious presence [] Spiritual/emotional support [] Crisis/trauma care [] Spiritual counseling [] Bereavement support [] Provided bereavement packet [] Provided Bible/devotional materials [] Provided toy/stuffed animal, coloring book to patient or family member [] Provided Communion [] Anointing/[place] [] Salvation [x] Completed spiritual assessment [] Other: Impact on Illness or Injury [] Angry [] Fearful [] Anxious [] Often cries [] Exhaustion [] Unable to work [] Unable to attend mandaeism [] Unable to walk/stand [] Unable to read [] Unable to drive [] Unable to eat/drink [] Unable to sleep [] Unable to be with family [] Patient intubated [] Other: Summary Time spent with patient
--- NOTE | 2021-05-21 11:41 | XR_ITS ---
WS: [id number] Right forearm, AP and lateral views, 05/21/2021 Clinical Data: Pain, edema, bruting Comparison: Right wrist, 01/29/2019. Findings: No fractures or dislocations are seen. There is osteoarthritic change of the distal radius and ulna w ith degenerative changes of the proximal row of carpals and an unhealed right scaphoid fracture. Ther e is an intravenous infusion device overlying the ventral surface of the distal right forearm. XR/XR forearm RT 2V 69091 Impression: Negative for new fracture.
--- NOTE | 2021-05-21 13:00 | P.PN_ITS ---
Subjective Subjective: Interval history: Patient is extubated and awake. Per casting and locker room servicer nurse patient had medium to large semi-liquidy bowel movement. Medications: Reviewed: Yes Vitals/I&O/Wt Last Vital Signs Temp 99.1 F 05/21/21 08:30 Pulse 90 05/21/21 12:08 Resp 18 05/21/21 12:05 BP 126/83 05/21/21 11:30 Pulse Ox 92 05/21/21 12:05 05/20/21 05/21/21 05/21/21 22:59 06:59 14:59 Intake Total 408.796 / 1018.141 699.625 / 1717.766 215.992 / 215.992 Output Total 1950 / 2450 250 / 250 Balance 408.796 / 518.141 -1250.375 / -732.234 -34.008 / -34.008 Weight last 48 hrs Weight 241 lb Weight 241 lb Physical Exam Narrative: EXAM NARRATIVE: Patient is extubated and agitated BMI 39.1 Head and neck examination PERRLA no masses no cervical lymphadenopathy no braeden dice NG tube in place Abdomen moderately tender particularly in the upper abdomen.moderately distended soft no organomegaly guarding or rigidity/no signs of peritonitis Right sided transverse scar. Alcantara catheter in place. Urinary Catheter Management^: 2-way Urethral: Cath Placed During This Visit: yes Reason for Continuing Indwelling Catheter: Accurate Measurement of Urinary Output in Critically Ill Patients Urinary Catheter Date of Insertion: 05/09/21 Urinary Catheter Time of Insertion: 05:30 Data : 05/21/21 04:05 05/21/21 04:05 A&P Assessment and plan (1) Abdominal distention: Patient does have prolonged ileus, per my interpretation of the KUB I do not see air-fluid levels more of distended bowel loops. Advised to minimize narcotics if possible NG to low intermittent wall suction and flush NG with 50 mL of saline every 8 hours to maintain patency We will continue to follow We will continue to hold on enema administration at the moment Thank you for consulting general surgery to participate taking care Status: Acute Attestations Medical Necessity Statement*: Per admitting service Time Spent in Patient Care: (>than 50% of time spent in counselling and/or dir ect pt care on unit) . Coding Level of Care Code Acute Banking Manager for [facility] Diagnoses Abdominal distention R14.0
[2021-05-21] MEDS: acetaminophen 325 mg Tablet 650 MG PO (13:07)
[2021-05-21] MEDS: haloperidol inj 5 mg/mL INJ 1 mL IM (15:01)
[2021-05-21 15:11] LABS: Lamotrigine (Lamictal) Level 1.5 mcg/mL (4.0-18.0)
--- NOTE | 2021-05-21 17:03 | PM.PN ---
Subjective Subjective: Interval history: Overnight patient had episodes of agitation, received Haldol, Ativan, currently she is resting, does awaken, but falls asleep, remains afebrile, normotensive, on 3 L Vitals/I&O/Wt Last Vital Signs Temp 100.4 F H 05/21/21 15:30 Pulse 108 H 05/21/21 16:01 Resp 30 H 05/21/21 16:01 BP 112/87 05/21/21 15:30 Pulse Ox 94 05/21/21 16:01 05/21/21 05/21/21 05/21/21 06:59 14:59 22:59 Intake Total 699.625 / 1717.766 315.992 / 315.992 Output Total 1950 / 2450 850 / 850 Balance -1250.375 / -732.234 -534.008 / -534.008 Weight last 48 hrs Weight 109.316 kg Weight 109.316 kg Physical Exam Const: COMMON NORMALS: no acute distress EXAM LIMITATIONS: altered mental status ORIENTATION/CONSCIOUSNESS: Yes awake and Yes oriented to person; not oriented to place and not oriented to time HENMT: COMMON NORMALS: normocephalic HEAD & SCALP: normocephalic Resp: COMMON NORMALS: normal respiratory effort, No retractions, No use of accessory muscles and clear to auscultation bilaterally AUSCULTATION: clear to auscultation bilaterally Cardio: COMMON NORMALS: regular rate, regular rhythm, S1 normal heart sound present and S2 normal heart sound present RATE: regular rate RHYTHM: regular rhythm HEART SOUNDS: S1 normal heart sound present and S2 normal heart sound present GI: COMMON NORMALS: Soft to palpation INSPECTION: Yes normal to inspection and Yes abdominal distension AUSCULTATION: Yes normoactive bowel sounds PALPATION: Yes Soft to palpation, No Tenderness to palpation present (GI), No Guarding due to palpation present (GI) and No Rigid due to palpation Extremity: COMMON NORMALS: no pedal edema Neuro: SENSORIUM/ORIENTATION: Yes oriented to person, No oriented to place and No oriented to time Urinary Catheter Management^: 2-way Urethral: Cath Placed During This Visit: yes Reason for Continuing Indwelling Catheter: Accurate Measurement of Urinary Output in Critically Ill Patients Urinary Catheter Date of Insertion: 05/09/21 Urinary Catheter Time of Insertion: 05:30 Data : 05/21/21 04:05 05/21/21 04:05 A&P Assessment and plan (1) Acute encephalopathy: -Extubated, followed commands, continues to have episodes of agitation throughout the afternoon, and tonight, received Ativan, Haldol -This morning does respond to her name, does awaken but falls asleep -Likely multifactorial from hypoxia, COVID-19, polypharmacy, severe anxiety -Minimize sedation -Haldol as needed, possibly can try Geodon -IV steroids stopped. -Persistent delirium/encephalopathy. EEG obtained, generalized slowing, no epileptiform discharges noted. Status: Acute (2) Respiratory failure with hypoxia: -Extubated 05/20/2021 -Secondary to postobstructive pneumonia -Had aspiration 05/20/2021 -Group B strep growing on sputum culture. Pending fungal studies. Negative galactomannan. Negative QuantiFERON gold. Negative PCP induced sputum. -Currently on Primaxin Status: Acute Qualifiers: Chronicity: acute Qualified Code(s): J96.01 - Acute respiratory failure with hypoxia (3) Pneumonia: As above. Secondary to postobstructive pneumonia, possible aspiration pneumonitis, superimposed on interstitial lung disease, emphysema, now aspiration event Intubated 05/09/2021 Extubated 05/20/2021 Status post bronchoscopy, removal of foreign body right middle lobe Respiratory viral panel negative. Negative galactomannan, negative PCP induced sputum. Pending beta D glucan, fungal. Negative TB QuantiFERON gold mycobacterial studies. Status: Acute Qualifiers: Laterality: bilateral Lung location: unspecified part of lung Pneumonia type: due to unspecified organism Qualified Code(s): J18.9 - Pneumonia, unspecified organism (4) COPD exacerbation: budesonide. Nebs. Antibiotics. Status: Acute (5) Interstitial lung disease: Status: Acute (6) Partial small bowel obstruction: -General surgery on consult -NG tube in place, low intermittent suction -Status post 1 dose of methadone Lotrisone -Receiving mag citrate -Serial abdominal exams, monitor for bowel movements, avoid opiates Status: Acute (7) Pulmonary hypertension: Status: Acute Additional A&P Information Cardiac echocardiogram, left ventricular appears to be dilated, diastolic function is normal, moderate pulmonary pretension Hep C positive Right central line in place Attestations Medical Necessity Statement*: Patient requires hospitalization due to respiratory failure secondary COVID-19, acute encephalopathy, aspiration, bowel obstruction Coding Level of Care Code Acute Records Associate for [facility] Diagnoses Acute encephalopathy G93.40 Respiratory failure with hypoxia J96.01 Chronicity: acute Pneumonia J18.9 Laterality: bilateral Lung location: unspecified part of lung Pneumonia type: due to unspecified organism COPD exacerbation J44.1 Interstitial lung disease J84.9 Partial small bowel obstruction K56.600 Pulmonary hypertension I27.20
--- NOTE | 2021-05-21 19:28 | PC.NURSE ---
Shift summary: Patient taken off of all sedation throughout shift. A sreekanth lift was used to get patient up to a chair, where she remained for about 6 hours today. Patient had 1 moderate sized liquid bowel movement, and 1 large bowel movement which was liquid mixed with solids. Stomach is still large, distended, and firm at the end of shift, but it is noticeably softer and smaller than earlier today. Patient also reports less discomfort and pain associated with her abdomen after having the large bowel movement. Despite being alert and oriented to person, place, and time, she has been agitated throughout the shift, almost constantly screaming for help. When asked what we can do to help her she responds only by screaming for help again or by telling the nurse that she is only screaming because she is mentally slow. Redirection does help her calm down, but only for a few minutes.
[2021-05-21] MEDS: quetiapine 300 mg Tablet PO (20:00)
[2021-05-22] VITALS (48 sets, daily range): BP systolic 92–144; BP diastolic 55–97; PULSE 82–127; RESP 17–34; TEMP 37.1–37.5; O2SAT 88–100; BMI 38.9
[2021-05-22] MEDS: ipratropium-albuterol 3 mL Neb INHALATION ×4 (03:04→20:16)
[2021-05-22] MEDS: haloperidol inj 5 mg/mL INJ 1 mL 1 MG IVP ×3 (03:20→19:41)
[2021-05-22 05:35] LABS: Basophils # 0.1 10^3/uL (0.0-0.1); Basophils % 0.4 %; Eosinophils # 0.1 10^3/uL (0.0-0.8); Eosinophils % 0.6 %; Hematocrit 44.4 % (37.0-47.0); Hemoglobin 13.1 g/dL (11.5-15.3); Lymphocytes # 1.5 10^3/uL (0.8-4.8); Lymphocytes % 10.8 %; Mean Corpuscular HGB Conc 29.5 g/dL (30.0-36.0); Mean Corpuscular Hemoglobin 29.2 pg (28.0-34.0); Mean Corpuscular Volume 99.1 fl (81-99); Mean Platelet Volume 8.9 fL (7.4-10.4); Monocytes % 14.4 %; Neutrophils # 10.25 10^3/uL (1.8-7.7); Neutrophils % 72.5 %; Nucleated Red Blood Cells % 0 %; Platelet Count 331 10^3/cmm (130-400); Red Blood Count 4.48 10^6/uL (4.1-5.3); Red Cell Distribution Width 13.8 % (12.1-15.1); White Blood Count 14.1 10^3/uL (4.0-10.0)
[2021-05-22 05:59] LABS: Alanine Aminotransferase 14 U/L (0-33); Alkaline Phosphatase 102 IU/L (35-105); Anion Gap 19.7 (5-19); Aspartate Amino Transferase 15 U/L (0-32); Blood Urea Nitrogen 7 mg/dL (6-20); Calcium 8.9 mg/dL (8.5-10.5); Carbon Dioxide 22 mmol/L (22-29); Chloride 100 mmol/L (98-107); Globulin 3.4 g/dL (1.3-4.6); Glomerular Filtration Rate 227.7 mL/min (90-130); Glucose 118 mg/dL (65-115); Osmolality Calculated 285 mOsm/kg (285-295); Potassium 3.7 mmol/L (3.5-5.1); Sodium 138 mmol/L (136-145); Total Bilirubin 0.9 mg/dL (0.15-1.2); Total Protein 6.4 g/dL (6.6-8.7)
[2021-05-22] MEDS: enoxaparin 40 mg/0.4 mL Syringe SUBCUT (06:01)
[2021-05-22] MEDS: FUROsemide 20 mg Tablet PO (06:01)
[2021-05-22 06:03] LABS: NT Pro B Type Natriuretic Pept 914 pg/mL (0-125)
--- NOTE | 2021-05-22 06:50 | P.PN_ITS ---
Subjective Subjective: Interval history: Patient had multiple bowel movements and seem to be a large. Overall feels better. Medications: Reviewed: Yes Vitals/I&O/Wt Last Vital Signs Temp 100.4 F H 05/21/21 15:30 Pulse 109 H 05/22/21 06:00 Resp 31 H 05/22/21 05:00 BP 134/79 05/22/21 05:00 Pulse Ox 88 L 05/22/21 05:00 05/21/21 05/21/21 05/22/21 14:59 22:59 06:59 Intake Total 315.992 / 315.992 320 / 635.992 100 / 735.992 Output Total 850 / 850 1100 / 1950 900 / 2850 Balance -534.008 / -534.008 -780 / -1314.008 -800 / -2114.008 Weight last 48 hrs Weight 241 lb Weight 241 lb Physical Exam Narrative: EXAM NARRATIVE: Patient is extubated and calm at the moment BMI 39.1 Head and neck examination PERRLA no masses no cervical lymphadenopathy no jaundice NG tube in place with 100 mL overnight Abdomen not tender,moderately distended soft no organomegaly guarding or rigidity/no signs of peritonitis Morbidly obese Right sided transverse scar. Alcantara catheter in place. Urinary Catheter Management^: 2-way Urethral: Cath Placed During This Visit: yes Reason for Continuing Indwelling Catheter: Accurate Measurement of Urinary Output in Critically Ill Patients Urinary Catheter Date of Insertion: 05/09/21 Urinary Catheter Time of Insertion: 05:30 Data : 05/22/21 05:10 05/22/21 05:10 A&P Assessment and plan (1) Abdominal distention: Patient responding to conservative measures Advised to minimize narcotics if possible We will plan to clamp NG for 2 hours and will check residuals afterwards if less than 200 mL can DC NG tube and start slowly clear liquid diet with aspiration precautions. We will continue to follow We will continue to hold on enema administration at the moment Thank you for consulting general surgery to participate taking care Status: Acute Attestations Medical Necessity Statement*: Per admitting service Time Spent in Patient Care: (>than 50% of time spent in counselling and/or direct pt care on unit) . Coding Level of Care Code Acute Business Process Consultant for Dor[facility] Diagnoses Abdominal distention R14.0
--- NOTE | 2021-05-22 07:00 | XR_ITS ---
WS: [id number] Portable AP semiupright chest, 05/22/2021 Clinical Data: sob Comparison: Portable chest, 05/20/2021. Findings: The endotracheal tube and nasogastric tube have been removed. The heart remains enlarged. T here is atelectasis and effusion at the left base. There are bilateral pulmonary opacities unchanged. Monitor leads are on the chest wall. XR/XR chest 1V portable [id number] Impression: 1. Removal of multiple tubes. 2. No change in cardiomegaly and bilateral pulmonary opacities.
--- NOTE | 2021-05-22 07:58 | PC.NURSE ---
Report received, assessment completed. Pt AAO to self only. Reoriented to place and time PRN. Pt able to answer simple questions but fofana not necessarily follow commands. NGT in place. Will check residual per orders and remove if applicable. VSS. Will continue to monitor.
[2021-05-22] MEDS: budesonide 0.5 mg/2 mL Neb INHALATION ×2 (08:02→20:17)
[2021-05-22] MEDS: polyethylene glycol 3350 Pkt 17 gm PO (08:50)
[2021-05-22] MEDS: lamoTRIgine 100 mg Tablet 150 MG PO (08:51)
[2021-05-22] MEDS: phosphorus 250 mg Tablet PO ×2 (08:53→18:11)
[2021-05-22] MEDS: buPROPion SR (12 HR) 150 mg Tablet PO (08:53)
[2021-05-22] MEDS: fluoxetine 20 mg Capsule PO (08:53)
[2021-05-22] MEDS: pantoprazole 40 mg SDV IVP (08:54)
--- NOTE | 2021-05-22 08:56 | CT_ITS ---
WS: [id number] CT HEAD TECHNIQUE: Noncontrast CT of the head obtained from the skullbase to the vertex. CLINICAL INFORMATION: kaycee weakness COMPARISON: May 17, 2021 DLP: 2096.[address] scans at [facility] use at least one of these dose optimization techniques: automated e xposure control; mA and/or kV adjustment per patient size (includes targeted exams where dose is matc hed to clinical indication); or iterative reconstruction. FINDINGS: No evidence of intracranial hemorrhage or mass effect. Ventricular system and basal cisterns are zuñiga nt. Mild small vessel changes with mild parenchymal volume loss. Tiny chronic lacunar infarcts in lef t basal ganglia. No extra-axial fluid collections. No evidence of mass or mass effect. Normal kelley-wh ite differentiation. Small amount of fluid in the left maxillary sinus. Mild mucosal thickening ethmoid air cells. Mastoid air cells well aerated. CT/CT head wo con* [id number] IMPRESSION: 1. No evidence of intracranial hemorrhage or mass effect. 2. Mild small vessel changes. Mild parenchymal volume loss. 3. No acute intracranial findings and no significant interval changes.
--- NOTE | 2021-05-22 08:56 | XR_ITS ---
WS: [id number] Right hand, AP and lateral views, 05/22/2021 Clinical Data: pain Comparison: None. Findings: No fractures or dislocations are seen. The soft tissues are unremarkable. There is degene rative change of the proximal row of carpal bones with an old scaphoid fracture. There is irregularit y of the articular surface of the distal radius. There is a pulse oximeter overlying the distal right second finger. XR/XR hand RT 2V [id number] Impression: 1. Negative for new fractures of the right hand. 2. Old right scaphoid fracture with degenerative change of the proximal row of carpal bones and the distal right radial articulation.
--- NOTE | 2021-05-22 09:05 | PC.NURSE ---
Pt pulled NGT out before nurse could assess residual. Bedside swallow study done. Pt able to swallow liquids and pills without difficulty. Pt had BM, pericare completed and pt repositioned. C/O pain to R hand whenever it is touched or moved. XR in room at this time.
--- NOTE | 2021-05-22 10:45 | PC.CHAP ---
Pastoral Care Encounter/Spiritual Assessment Type of Contact [] Declined bacteriology teacher visit [] Patient/Family/Request visit [] Outpatient visit [] Follow-up visit [] Physician referral [] Code/Alert [x] Routine visit [] Staff referral [] Actively dying [] Patient sleeping [] Family support [] [] Out of room [] Palliative care [] [] Receiving care in room [] Pre-surgical visit [] Trauma [] Long length of stay [x] ICU visit [] Other: Relational/Emotional Strength [] Patient feels connected with others/family/visitors/staff [] Distress [] Loneliness/isolation [] Abandonment Spirituality of Patient [] Person of Love [] Attends Muslim of their Love [] Believes in Prayer [] Reads Bible or Sikhism materials [] There are Spiritual issues to be addressed Swiss Machinist Interventions [x] Prayer [x] Active listening [x] Non-anxious presence [x] Spiritual/emotional support [] Crisis/trauma care [] Spiritual counseling [] Bereavement support [] Provided bereavement packet [] Provided Bible/devotional materials [] Provided toy/stuffed animal, coloring book to patient or family member [] Provided Communion [] Anointing/[place] [] Salvation [x] Completed spiritual assessment [] Other: Impact on Illness or Injury [] Angry [] Fearful [] Anxious [] Often cries [] Exhaustion [] Unable to work [] Unable to attend tenriism [] Unable to walk/stand [] Unable to read [] Unable to drive [] Unable to eat/drink [] Unable to sleep [] Unable to be with family [] Patient intubated [] Other: Summary patient doesn't handle pain well at all.. prayed for peace and understanding of her situation and circumstances... advised patient bacteriology teacher would revisit if called Time spent with patient 10 min
--- NOTE | 2021-05-22 12:16 | PC.NUTR ---
Nutrition follow up: Recommend to encourage po intake of meals/fluids as tolerated on mechanical soft diet and provide preferences as appropriate. Also recommend clarification of diet as Dr. Welch note indicating trial of clear liquids today, however [facility] soft diet was actually ordered yesterday. See full RD assessment for further details.
[2021-05-22] MEDS: acetaminophen 325 mg Tablet 650 MG PO (12:49)
[2021-05-22] MEDS: ketorolac 30 mg/mL INJ IVP ×2 (14:29→22:35)
--- NOTE | 2021-05-22 15:44 | P.PN_ITS ---
Subjective Subjective: Interval history: Patient was seen this morning, she sitting up in a chair, she does follow commands some commands, but at other times she does not, she responds to her name, she does not move the right upper extremity, at the level of shoulders, forearm, or the hand, is in significant pain when the right upper extremity is moved, she continues to have episodes of agitation and confusion, did have bowel movement overnight, has good bowel sounds Vitals/I&O/Wt Last Vital Signs Temp 99.5 F 05/22/21 08:00 Pulse 108 H 05/22/21 14:00 Resp 23 H 05/22/21 13:00 BP 123/94 05/22/21 13:00 Pulse Ox 96 05/22/21 13:00 05/22/21 05/22/21 05/22/21 06:59 14:59 22:59 Intake Total 100 / 735.992 902 / 902 Output Total 900 / 2850 750 / 750 Balance -800 / -2114.008 152 / 152 Weight last 48 hrs Weight 109.316 kg Weight 109.316 kg Physical Exam Const: GENERAL APPEARANCE: anxious NUTRITIONAL APPEARANCE: obese ORIENTATION/CONSCIOUSNESS: Yes awake, Yes oriented to person and Yes confused; not oriented to place and not oriented to time Resp: COMMON NORMALS: normal respiratory effort, No retractions, No use of accessory muscles and clear to auscultation bilaterally AUSCULTATION: clear to auscultation bilaterally Cardio: COMMON NORMALS: regular rate, regular rhythm, S1 normal heart sound present and S2 normal heart sound present RATE: regular rate RHYTHM: regular rhythm HEART SOUNDS: S1 normal heart sound present and S2 normal heart sound present GI: COMMON NORMALS: Normal to inspection, nondistended, normoactive bowel sounds present and Soft to palpation PALPATION: Yes Soft to palpation and No Tenderness to palpation present (GI) Neuro: SENSORIUM/ORIENTATION: Yes oriented to person, No oriented to place and No oriented to time OTHER: Right upper extremity significant pain, tenderness with palpation throughout the right upper extremity, no significant strength right upper extremity, 0/5, compared to 3 out of 5 on the left, moves the right lower extremity, Urinary Catheter Management^: 2-way Urethral: Cath Placed During This Visit: yes Reason for Continuing Indwelling Catheter: Accurate Measurement of Urinary Output in Critically Ill Patients Urinary Catheter Date of Insertion: 05/09/21 Urinary Catheter Time of Insertion: 05:30 Data : 05/22/21 05:10 05/22/21 05:10 Micro: Microbiology 05/22/21 11:11 Blood Culture - Preliminary Blood SPECIMEN COLLECTED 05/22/21 09:40 Blood Culture - Preliminary Blood SPECIMEN COLLECTED A&P Assessment and plan (1) Acute encephalopathy: -Extubated, followed commands, continues to have episodes of agitation but redirectable -This morning does respond to her name, does awaken, does follow some commands -Likely multifactorial from hypoxia, COVID-19, polypharmacy, severe anxiety -Minimize sedation -Haldol as needed, possibly can try Geodon -IV steroids stopped. -Persistent delirium/encephalopathy. EEG obtained, generalized slowing, no epileptiform discharges noted. Status: Acute (2) Respiratory failure with hypoxia: -Extubated 05/20/2021 -Secondary to postobstructive pneumonia -Had aspiration 05/20/2021 -Has low-grade fevers likely aspiration pneumonia -Group B strep growing on sputum culture. Pending fungal studies. Negative galactomannan. Negative QuantiFERON gold. Negative PCP induced sputum. -Currently on Primaxin -Currently on 3 L Status: Acute Qualifiers: Chronicity: acute Qualified Code(s): J96.01 - Acute respiratory failure with hypoxia (3) Pneumonia: As above. Secondary to postobstructive pneumonia, possible aspiration pneumonitis, superimposed on interstitial lung disease, emphysema, now aspiration event Intubated 05/09/2021 Extubated 05/20/2021 -Aspiration event 05/20/2021 early mornings before extubation Status post bronchoscopy, removal of foreign body right middle lobe Respiratory viral panel negative. Negative galactomannan, negative PCP induced sputum. Pending beta D glucan, fungal. Negative TB QuantiFERON gold mycobacterial studies. Status: Acute Qualifiers: Laterality: bilateral Lung location: unspecified part of lung Pneumonia type: due to unspecified organism Qualified Code(s): J18.9 - Pneumonia, unspecified organism (4) COPD exacerbation: budesonide. Nebs. Antibiotics. Status: Acute (5) Interstitial lung disease: Status: Acute (6) Partial small bowel obstruction: -General surgery on consult -NG tube in place, to be discontinued later on today n -Status post 1 dose of methylnaltrexone -MiraLAX -Serial abdominal exams, monitor for bowel movements, avoid opiates -Good bowel sounds, abdomen less distended, having minimal bowel movements Status: Acute (7) Pulmonary hypertension: Status: Acute (8) Weakness of right upper extremity: -Right lower extremity has good range of motion, follows commands by moving -Does not move right upper extremity, strength 0 out of 5 compared to 3 out of 5 on the left -When right arm is raised, it falls against gravity -She does not follow commands with movement of right arm, forearm, shoulder -Has significant pain and tenderness throughout the extremity -Does show an old scaphoid fracture nonhealed -CT of the head does not show acute stroke -If no improvement by tomorrow we will pursue -We will perform an MRI brain -Possible brachial plexus injury, MRI brachial plexus -Pain control Toradol, PT OT Status: Acute Additional A&P Information Cardiac echocardiogram, left ventricular appears to be dilated, diastolic function is normal, moderate pulmonary pretension Hep C positive Attestations Medical Necessity Statement*: Patient requires hospitalization for acute respiratory failure secondary COVID-19, with aspiration pneumonia, aspiration event, right upper extremity weakness Coding Level of Care Code Acute Branch Associate 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
--- NOTE | 2021-05-22 17:35 | PC.NURSE ---
Shift Note Frequent safety and comfort rounds continue. Orders and/or nursing care completed as indicated. Patient monitored for response to intervention and treatment(s). Education provided includes treatment plan, lift safety, and medications. Pt needs frequent reminders. Lying in bed with eyes closed at this time. Will continue to monitor.
[2021-05-22] MEDS: quetiapine 300 mg Tablet PO (19:40)
--- NOTE | 2021-05-22 21:28 | NUR.SHIFT ---
SHIFT NOTE 1899: Shift report from MARTHA Garcia. 1999: Pt alert and oriented-- very talkative and animated. NO s/s of acute distress-- accidentally pushes NC to the side with O2 sats 90-91%. Ana care with pad and diaper change. Large, watery stool noted. Catheter care done. 2127: Shift report called to media theorist and author of. Pt prepared for transfer via bed with supplemental O2.
[2021-05-23] VITALS (20 sets, daily range): BP systolic 103–139; BP diastolic 68–83; PULSE 86–114; RESP 16–21; TEMP 36.5–37.3; O2SAT 90–96
[2021-05-23] MEDS: ipratropium-albuterol 3 mL Neb INHALATION ×7 (00:19→20:35)
[2021-05-23] MEDS: acetaminophen 325 mg Tablet 650 MG PO (02:19)
[2021-05-23] MEDS: haloperidol inj 5 mg/mL INJ 1 mL 1 MG IVP (02:19)
[2021-05-23 05:35] LABS: Basophils % 0.2 %; Eosinophils # 0.1 10^3/uL (0.0-0.8); Hematocrit 34.5 % (37.0-47.0); Lymphocytes # 1.5 10^3/uL (0.8-4.8); Lymphocytes % 14.3 %; Mean Corpuscular HGB Conc 31.9 g/dL (30.0-36.0); Mean Corpuscular Hemoglobin 29.5 pg (28.0-34.0); Mean Corpuscular Volume 92.5 fl (81-99); Monocytes # 1.2 10^3/uL (0.2-0.9); Monocytes % 11.6 %; Neutrophils # 7.58 10^3/uL (1.8-7.7); Neutrophils % 71.9 %; Nucleated Red Blood Cells % 0 %; Platelet Count 395 10^3/cmm (130-400); Red Blood Count 3.73 10^6/uL (4.1-5.3); Red Cell Distribution Width 13.7 % (12.1-15.1); White Blood Count 10.5 10^3/uL (4.0-10.0)
[2021-05-23 05:58] LABS: Alanine Aminotransferase 10 U/L (0-33); Albumin Level 3.1 g/dL (3.5-5.2); Alkaline Phosphatase 97 IU/L (35-105); Anion Gap 14.2 (5-19); Aspartate Amino Transferase 11 U/L (0-32); Blood Urea Nitrogen 8 mg/dL (6-20); C Reactive Protein 191.3 mg/L (0.0-4.9); Calcium 8.9 mg/dL (8.5-10.5); Carbon Dioxide 26 mmol/L (22-29); Chloride 99 mmol/L (98-107); Globulin 3.2 g/dL (1.3-4.6); Glomerular Filtration Rate 163.4 mL/min (90-130); Glucose 138 mg/dL (65-115); Magnesium 1.7 mg/dL (1.7-2.3); Osmolality Calculated 283 mOsm/kg (285-295); Phosphorus 2.4 mg/dL (2.5-4.5); Potassium 3.2 mmol/L (3.5-5.1); Sodium 136 mmol/L (136-145); Total Bilirubin 0.6 mg/dL (0.15-1.2); Total Protein 6.3 g/dL (6.6-8.7)
[2021-05-23] MEDS: enoxaparin 40 mg/0.4 mL Syringe SUBCUT (06:17)
[2021-05-23] MEDS: FUROsemide 20 mg Tablet PO (06:17)
[2021-05-23 06:46] LABS: NT Pro B Type Natriuretic Pept 906 pg/mL (0-125)
[2021-05-23] MEDS: budesonide 0.5 mg/2 mL Neb INHALATION ×2 (07:46→20:35)
[2021-05-23] MEDS: pantoprazole 40 mg SDV IVP (08:34)
[2021-05-23] MEDS: fluoxetine 20 mg Capsule PO (08:51)
[2021-05-23] MEDS: buPROPion SR (12 HR) 150 mg Tablet PO (08:52)
[2021-05-23] MEDS: potassium chloride ER 20 mEq Tablet 40 MEQ PO (08:52)
[2021-05-23] MEDS: lamoTRIgine 100 mg Tablet 150 MG PO (08:53)
--- NOTE | 2021-05-23 10:15 | MR_ITS ---
WS: [id number] MRI OF THE BRACHIAL PLEXUS WITHOUT GADOLINIUM ENHANCEMENT INDICATION: Right upper extremity weakness TECHNIQUE: Very limited examination. Patient could not tolerate procedure and refused to finish. Munir nal T1, axial T1, sagittal STIR imaging. FINDINGS: Limited examination. Patient did not tolerate further imaging. A few very limited sequences were obtained. Neck soft tissues appear grossly normal. Suprapatellar supraclavicular regions appear grossly normal bilaterally. No evidence of supraclavicular mass. Straightening of the normal cervical lordosis with small disc protrusions in the mid cervical spine at C3-C4, C4-C5, C5-C6, and C6-C7 with mild central canal stenosis. MR/MR brachialplexus wo con [id number] IMPRESSION: Limited examination 1. Lower neck soft tissues and supraclavicular regions appear grossly normal b ilaterally. 2. Straightening of the normal cervical lordosis with small disc protrusions i n the mid cervical spine at C3-C6 worse at C4-C5 and C5-C6. Slight contact of t he cervical cord.
--- NOTE | 2021-05-23 10:15 | MR_ITS ---
WS: [id number] MRI HEAD WITHOUT CONTRAST TECHNIQUE: Sagittal T1, T2 axial, T2 axial FLAIR, axial and coronal T1 images, axial susceptibility w eighted imaging, axial diffusion weighted images, and coronal T2 images were obtained. CLINICAL INFORMATION: rue weakness COMPARISON: None. FINDINGS: No evidence of restricted diffusion to suggest acute ischemia. Ventricular system and basal cisterns are patent. Mild small vessel changes. Moderate parenchymal volume loss. Chronic lacunar infarct left frontal periventricular white matter. Normal posterior fossa. Normal vascular flow voids at the skull base. No extra-axial fluid collection s. No evidence of mass or mass effect. Partial opacification mastoid air cells bilaterally. Paranasal sinuses are well aerated. No hemosider in on susceptibly weighted images. Focus of hemosiderin in the left mesial temporal lobe measuring 7 mm most consistent with chronic cavernoma. No evidence of recent hemorrhage. Normal optic chiasm and pituitary infundibulum. Moderate to advanced symmetric atrophy temporal lobes and hippocampal formati ons. Normal cavernous sinuses and Meckel's cave. MR/MR head wo con* [id number] IMPRESSION: 1. No evidence of restricted diffusion to suggest acute ischemia. 2. Mild small vessel changes moderate parenchymal volume loss. 3. Chronic lacunar infarct left frontal periventricular white matter. 4. Partial opacification mastoid air cells bilaterally. 5. 7 mm focus of hemosiderin in the left mesial temporal lobe most consistent with cavernoma. No evidence of recent hemorrhage. 6. Moderate to advanced symmetric atrophy temporal lobes and hippocampal forma tions.
--- NOTE | 2021-05-23 12:11 | PM.PN ---
Subjective Subjective: Interval history: Patient was seen this morning, she follows commands, she is unable to move the right upper extremity at the level of the elbow, the arm in the forearm, is able to squeeze my fingers, she denies any shortness of breath, she is alert to person, to place, not to time, Vitals/I&O/Wt Last Vital Signs Temp 98.6 F 05/23/21 11:33 Pulse 110 H 05/23/21 12:08 Resp 20 H 05/23/21 12:08 BP 118/82 05/23/21 11:33 Pulse Ox 96 05/23/21 12:08 05/22/21 05/23/21 05/23/21 22:59 06:59 14:59 Intake Total 430 / 1332 600 / 1932 220 / 220 Output Total 450 / 1200 350 / 1550 Balance -20 / 132 250 / 382 220 / 220 Weight last 48 hrs Weight 109.316 kg Weight 109.316 kg Physical Exam Const: COMMON NORMALS: no acute distress GENERAL APPEARANCE: anxious and frail appearing ORIENTATION/CONSCIOUSNESS: Yes awake, Yes oriented to person and Yes oriented to place; not oriented to time Resp: COMMON NORMALS: normal respiratory effort, No retractions, No use of accessory muscles and clear to auscultation bilaterally AUSCULTATION: clear to auscultation bilaterally Cardio: COMMON NORMALS: regular rate, regular rhythm, S1 normal heart sound present and S2 normal heart sound present RATE: regular rate RHYTHM: regular rhythm HEART SOUNDS: S1 normal heart sound present and S2 normal heart sound present GI: COMMON NORMALS: Normal to inspection, nondistended, normoactive bowel sounds present, Soft to palpation and non-tender PALPATION: Yes Soft to palpation Extremity: COMMON NORMALS: no pedal edema Neuro: SENSORIUM/ORIENTATION: Yes oriented to person, Yes oriented to place and No oriented to time Psych: COMMON NORMALS: mental status grossly normal Urinary Catheter Management^: 2-way Urethral: Cath Placed During This Visit: yes Reason for Continuing Indwelling Catheter: Other Urinary Catheter Date of Insertion: 05/09/21 Urinary Catheter Time of Insertion: 05:30 Data : 05/23/21 05:00 05/23/21 05:00 Micro: Microbiology 05/22/21 11:11 Blood Culture - Preliminary Blood NEGATIVE TO DATE 05/22/21 09:40 Blood Culture - Preliminary Blood NEGATIVE TO DATE 05/22/21 09:35 Urine Culture - Preliminary Urine Catheterized A&P Assessment and plan (1) Acute encephalopathy: -Extubated -follows commands, alert to person, to place, not to time continues to have episodes of agitation but redirectable -Likely multifactorial from hypoxia, COVID-19, polypharmacy, severe anxiety -Minimize sedation -Haldol as needed, possibly can try Geodon -IV steroids stopped. -Persistent delirium/encephalopathy. EEG obtained, generalized slowing, no epileptiform discharges noted. -MRI of the head plan for today Status: Acute (2) Respiratory failure with hypoxia: -Extubated 05/20/2021 -Secondary to postobstructive pneumonia -Had aspiration 05/20/2021 -Has low-grade fevers likely aspiration pneumonia, afebrile last 3 4 hours -Group B strep growing on sputum culture. Pending fungal studies. Negative galactomannan. Negative QuantiFERON gold. Negative PCP induced sputum. -Currently on Primaxin -Currently on 3 L Status: Acute Qualifiers: Chronicity: acute Qualified Code(s): J96.01 - Acute respiratory failure with hypoxia (3) Pneumonia: As above. Secondary to postobstructive pneumonia, possible aspiration pneumonitis, superimposed on interstitial lung disease, emphysema, now aspiration event Intubated 05/09/2021 Extubated 05/20/2021 -Aspiration event 05/20/2021 early mornings before extubation Status post bronchoscopy, removal of foreign body right middle lobe Respiratory viral panel negative. Negative galactomannan, negative PCP induced sputum. Pending beta D glucan, fungal. Negative TB QuantiFERON gold mycobacterial studies. Status: Acute Qualifiers: Laterality: bilateral Lung location: unspecified part of lung Pneumonia type: due to unspecified organism Qualified Code(s): J18.9 - Pneumonia, unspecified organism (4) COPD exacerbation: budesonide. Nebs. Antibiotics. Status: Acute (5) Interstitial lung disease: Status: Acute (6) Partial small bowel obstruction: -General surgery on consult -NG tube i removed -Status post 1 dose of methylnaltrexone -MiraLAX -Serial abdominal exams, monitor for bowel movements, avoid opiates -On MiraLAX, Colace -Good bowel sounds, abdomen less distended, having 3 soft bowel movements Status: Acute (7) Pulmonary hypertension: Status: Acute (8) Weakness of right upper extremity: -Right lower extremity has good range of motion, does follow commands, but is unable to move the right shoulder, right forearm, is able to squeeze my fingers -Does not move right upper extremity, strength 0 out of 5 compared to 3 out of 5 on the left -When right arm is raised, it falls against gravity -Able to squeeze my fingers -Has significant pain and tenderness throughout the extremity -Does show an old scaphoid fracture nonhealed -CT of the head does not show acute stroke -We will do MRI of the brain, MRI brachial plexus -Pain control Toradol, PT OT Status: Acute Additional A&P Information Cardiac echocardiogram, left ventricular appears to be dilated, diastolic function is normal, moderate pulmonary pretension Hep C positive Attestations Medical Necessity Statement*: Patient requires hospitalization for acute respiratory failure secondary to postobstructive pneumonia, with recurrent aspiration, weakness of right upper extremity, partial small bowel obstruction Coding Level of Care Code Acute 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
--- NOTE | 2021-05-23 13:03 | PC.NUTR ---
Nutrition consult received for malnutrition. Have assessed pt multiple times this admission. Noted diet downgraded to Full liquid during time of RD assessment. Contacted Dr. Welch, who stated he thought pt had been receiving clear liquids. Notified that Mechanical soft had been ordered 05/21 and pt had been consuming, received verbal order to resume Mech soft with supplement at this time. See full RD assessment for further details.
--- NOTE | 2021-05-23 13:21 | PC.CHAP ---
Pastoral Care Encounter/Spiritual Assessment Type of Contact [] Declined tax analyst visit [] Patient/Family/Request visit [] Outpatient visit [xx] Follow-up visit [] Physician referral [] Code/Alert [] Routine visit [] Staff referral [] Actively dying [] Patient sleeping [] Family support [] [] Out of room [] Palliative care [] [] Receiving care in room [] Pre-surgical visit [] Trauma [xx] Long length of stay [] ICU visit [xx] Other: ISOLATION Relational/Emotional Strength [] Patient feels connected with others/family/visitors/staff [] Distress [] Loneliness/isolation [] Abandonment Spirituality of Patient [] Person of Love [] Attends Scientologist of their Love [] Believes in Prayer [] Reads Bible or Zoroastrianism materials [] There are Spiritual issues to be addressed Port Surveyor Interventions [] Prayer [] Active listening [] Non-anxious presence [] Spiritual/emotional support [] Crisis/trauma care [] Spiritual counseling [] Bereavement support [] Provided bereavement packet [] Provided Bible/devotional materials [] Provided toy/stuffed animal, coloring book to patient or family member [] Provided Communion [] Anointing/[place] [] Salvation [] Completed spiritual assessment [] Other: Impact on Illness or Injury [] Angry [] Fearful [] Anxious [] Often cries [] Exhaustion [] Unable to work [] Unable to attend catholic [] Unable to walk/stand [] Unable to read [] Unable to drive [] Unable to eat/drink [] Unable to sleep [] Unable to be with family [] Patient intubated [] Other: Summary Patient has been placed in isolation. Time spent with patient
--- NOTE | 2021-05-23 13:51 | USR_ITS ---
PROCEDURE INFORMATION: Exam: US Duplex Right Upper Extremity Veins, Limited Exam date and time: 05/23/2021 1:51 PM Age: 61 years old Clinical indication: Swelling (edema) of limb; Upper extremity, right; Additional info: Dvt TECHNIQUE: Imaging protocol: Real-time Duplex ultrasound of the Right Upper Extremity with 2-D kelley scale, color Doppler flow and spectral waveform analysis with image documentation. Limited exam focused on the right upper extremity veins. COMPARISON: [place] [id number] 05/10/2021 8:56 AM Chest x-ray 05/20/2021 FINDINGS: Right deep veins: Unremarkable. Axillary and brachial veins are patent throughout without thrombus. Normal Doppler waveforms. Normal compressibility and/or augmentation response. Visualized internal jugular and subclavian veins are patent. Small filling defect in the medial right internal jugular vein is believed to correspond to a triple-lumen catheter. There may be a small amount of fibrin sheath around the catheter. Right superficial veins: Unremarkable. Visualized cephalic and basilic veins are patent without thrombus. Soft tissues: Unremarkable. US/[place] [id number] IMPRESSION: 1. No evidence of deep vein thrombosis. 2. Triple-lumen catheter in the right internal jugular vein. Suspected fibrin sheath around the catheter. Radiation Dose CTDIVOL = (mGy): DLP = (mGy-cm)
[2021-05-23] MEDS: docusate sodium 100 mg Capsule PO ×2 (14:00→16:49)
--- NOTE | 2021-05-23 14:47 | P.PN_ITS ---
Subjective Subjective: Interval history: Patient overall feels better and continues to have multiple bowel movements and tolerating p.o. intake, patient transferred to the floor. Medications: Reviewed: Yes Vitals/I&O/Wt Last Vital Signs Temp 98.6 F 05/23/21 11:33 Pulse 110 H 05/23/21 12:08 Resp 20 H 05/23/21 12:08 BP 118/82 05/23/21 11:33 Pulse Ox 96 05/23/21 12:08 05/22/21 05/23/21 05/23/21 22:59 06:59 14:59 Intake Total 430 / 1332 600 / 1932 320 / 320 Output Total 450 / 1200 350 / 1550 800 / 800 Balance -20 / 132 250 / 382 -480 / -480 Weight last 48 hrs Weight 241 lb Weight 241 lb Physical Exam Narrative: EXAM NARRATIVE: Patient is conscious alert oriented X3 BMI 38.9 Head and neck examination PERRLA no masses no cervical lymphadenopathy no jaundice Abdomen nontender nondistended soft no organomegaly guarding or rigidity/no signs of peritonitis obese Urinary Catheter Management^: 2-way Urethral: Cath Placed During This Visit: yes Reason for Continuing Indwelling Catheter: Other Urinary Catheter Date of Insertion: 05/09/21 Urinary Catheter Time of Insertion: 05:30 Data : 05/23/21 05:00 05/23/21 05:00 Micro: Microbiology 05/22/21 11:11 Blood Culture - Preliminary Blood NEGATIVE TO DATE 05/22/21 09:40 Blood Culture - Preliminary Blood NEGATIVE TO DATE 05/22/21 09:35 Urine Culture - Preliminary Urine Catheterized A&P Assessment and plan (1) Partial small bowel obstruction: From surgical standpoint of view can advance diet as tolerated and add protein shakes to optimize nutrition No surgical intervention at this time . Thank you for consulting general surgery to participate taking care Ms. Samuels Status: Resolved Attestations Medical Necessity Statement*: Per admitting service Time Spent in Patient Care: (>than 50% of time spent in counselling and/or direct pt care on unit) . Coding Level of Care Code Acute [employer] Product Leadership for [facility] Fwd Diagnoses Partial small bowel obstruction K56.600
--- NOTE | 2021-05-23 15:36 | PC.NURSE ---
This RN confirms care received and documentation on patient by student nurse.
[2021-05-23] MEDS: polyethylene glycol 3350 Pkt 17 gm PO (16:49)
[2021-05-23] MEDS: quetiapine 300 mg Tablet PO (21:21)
[2021-05-23] MEDS: ketorolac 30 mg/mL INJ IVP (23:15)
[2021-05-24] VITALS (20 sets, daily range): BP systolic 120–168; BP diastolic 55–97; PULSE 62–103; RESP 18–20; TEMP 36.6–37.4; O2SAT 92–96
[2021-05-24] MEDS: ipratropium-albuterol 3 mL Neb INHALATION ×6 (00:31→20:27)
[2021-05-24] MEDS: enoxaparin 40 mg/0.4 mL Syringe SUBCUT (06:16)
[2021-05-24] MEDS: FUROsemide 20 mg Tablet PO (06:17)
[2021-05-24] MEDS: budesonide 0.5 mg/2 mL Neb INHALATION ×2 (07:54→20:27)
[2021-05-24 08:11] LABS: Basophils % 0.4 %; Eosinophils # 0.2 10^3/uL (0.0-0.8); Eosinophils % 2.4 %; Hematocrit 34.4 % (37.0-47.0); Hemoglobin 10.7 g/dL (11.5-15.3); Lymphocytes # 1.9 10^3/uL (0.8-4.8); Lymphocytes % 23.1 %; Mean Corpuscular HGB Conc 31.1 g/dL (30.0-36.0); Mean Corpuscular Hemoglobin 28.9 pg (28.0-34.0); Monocytes # 0.9 10^3/uL (0.2-0.9); Neutrophils # 5.01 10^3/uL (1.8-7.7); Neutrophils % 62.1 %; Nucleated Red Blood Cells % 0 %; Platelet Count 403 10^3/cmm (130-400); White Blood Count 8.1 10^3/uL (4.0-10.0)
[2021-05-24] MEDS: buPROPion SR (12 HR) 150 mg Tablet PO (08:15)
[2021-05-24] MEDS: polyethylene glycol 3350 Pkt 17 gm PO ×2 (08:15→17:59)
[2021-05-24] MEDS: fluoxetine 20 mg Capsule PO (08:15)
[2021-05-24] MEDS: docusate sodium 100 mg Capsule PO ×2 (08:15→17:59)
[2021-05-24] MEDS: lamoTRIgine 100 mg Tablet 150 MG PO (08:15)
[2021-05-24] MEDS: pantoprazole 40 mg SDV IVP (08:15)
[2021-05-24 08:43] LABS: NT Pro B Type Natriuretic Pept 404 pg/mL (0-125); Procalcitonin 0.09 ng/mL (0-0.5)
[2021-05-24 08:47] LABS: Alanine Aminotransferase 12 U/L (0-33); Alkaline Phosphatase 90 IU/L (35-105); Anion Gap 14.7 (5-19); Aspartate Amino Transferase 16 U/L (0-32); Blood Urea Nitrogen 10 mg/dL (6-20); C Reactive Protein 129.2 mg/L (0.0-4.9); Carbon Dioxide 25 mmol/L (22-29); Chloride 104 mmol/L (98-107); Globulin 3.2 g/dL (1.3-4.6); Glomerular Filtration Rate 227.7 mL/min (90-130); Glucose 126 mg/dL (65-115); Magnesium 1.9 mg/dL (1.7-2.3); Osmolality Calculated 291 mOsm/kg (285-295); Phosphorus 3.2 mg/dL (2.5-4.5); Potassium 3.7 mmol/L (3.5-5.1); Sodium 140 mmol/L (136-145); Total Bilirubin 0.4 mg/dL (0.15-1.2); Total Protein 6.2 g/dL (6.6-8.7)
--- NOTE | 2021-05-24 16:20 | PM.PN ---
Subjective Subjective: Interval history: Patient was seen this morning, she is alert to person, to place, not to time, is much more alert, responsive, follows all commands, continues to have right upper extremity weakness, but has more mobility in her right hand, she is agreeable to senior living placement Vitals/I&O/Wt Last Vital Signs Temp 98.9 F 05/24/21 11:51 Pulse 84 05/24/21 15:02 Resp 18 05/24/21 14:59 BP 168/93 05/24/21 11:51 Pulse Ox 96 05/24/21 14:59 05/24/21 05/24/21 05/24/21 06:59 14:59 22:59 Intake Total 340 / 1700 340 / 340 100 / 440 Output Total 600 / 2525 550 / 550 Balance -260 / -825 -210 / -210 100 / -110 Weight last 48 hrs Weight 109.316 kg Weight 109.316 kg Physical Exam Const: COMMON NORMALS: no acute distress and patient oriented x3 Resp: COMMON NORMALS: normal respiratory effort, No retractions, No use of accessory muscles and clear to auscultation bilaterally AUSCULTATION: clear to auscultation bilaterally Cardio: COMMON NORMALS: regular rate, regular rhythm, S1 normal heart sound present and S2 normal heart sound present RATE: regular rate RHYTHM: regular rhythm HEART SOUNDS: S1 normal heart sound present and S2 normal heart sound present GI: COMMON NORMALS: Normal to inspection, nondistended, normoactive bowel sounds present, Soft to palpation and non-tender PALPATION: Yes Soft to palpation Extremity: COMMON NORMALS: no pedal edema NARRATIVE EXTREMITY EXAM: Right lower extremity amputation, secondary to infection Neuro: COMMON NORMALS: patient oriented x3 OTHER: Right upper extremity significant pain, tenderness with palpation throughout the right upper extremity, no significant strength right upper extremity, 0/5, compared to 3 out of 5 on the left, moves the right lower extremity, Psych: COMMON NORMALS: mental status grossly normal Urinary Catheter Management^: 2-way Urethral: Cath Placed During This Visit: yes Reason for Continuing Indwelling Catheter: Other Urinary Catheter Date of Insertion: 05/09/21 Urinary Catheter Time of Insertion: 05:30 Data : 05/24/21 07:49 05/24/21 07:49 Micro: Microbiology 05/22/21 09:35 Urine Culture - Final Urine Catheterized A&P Assessment and plan (1) Acute encephalopathy: -Resolved -Extubated -follows commands, alert to person, to place, not to time, no episode of agitation -Likely multifactorial from hypoxia, COVID-19, polypharmacy, severe anxiety -Minimize sedation -Haldol as needed, possibly can try Geodon -IV steroids stopped. -Persistent delirium/encephalopathy. EEG obtained, generalized slowing, no epileptiform discharges noted. -MRI of the head no evidence of acute CVA Status: Acute (2) Respiratory failure with hypoxia: -Extubated 05/20/2021 -Secondary to postobstructive pneumonia -Had aspiration 05/20/2021 -Afebrile for the last 3 4 hours -Group B strep growing on sputum culture. Pending fungal studies. Negative galactomannan. Negative QuantiFERON gold. Negative PCP induced sputum. -Currently on Primaxin -Currently on 3 L Status: Acute Qualifiers: Chronicity: acute Qualified Code(s): J96.01 - Acute respiratory failure with hypoxia (3) Pneumonia: As above. Secondary to postobstructive pneumonia, possible aspiration pneumonitis, superimposed on interstitial lung disease, emphysema, now aspiration event Intubated 05/09/2021 Extubated 05/20/2021 -Aspiration event 05/20/2021 early mornings before extubation Status post bronchoscopy, removal of foreign body right middle lobe Respiratory viral panel negative. Negative galactomannan, negative PCP induced sputum. Pending beta D glucan, fungal. Negative TB QuantiFERON gold mycobacterial studies. Status: Acute Qualifiers: Laterality: bilateral Lung location: unspecified part of lung Pneumonia type: due to unspecified organism Qualified Code(s): J18.9 - Pneumonia, unspecified organism (4) COPD exacerbation: budesonide. Nebs. Antibiotics. Status: Acute (5) Interstitial lung disease: Status: Acute (6) Partial small bowel obstruction: -General surgery on consult -NG tube i removed -Status post 1 dose of methylnaltrexone -MiraLAX -Serial abdominal exams, monitor for bowel movements, avoid opiates -On MiraLAX, Colace -Good bowel sounds, abdomen less distended, having adequate soft bowel movements -Advance diet as tolerated Status: Resolved (7) Pulmonary hypertension: Status: Acute (8) Weakness of right upper extremity: -Right lower extremity has good range of motion, does follow commands, but is unable to move the right shoulder, right forearm, is able to squeeze my fingers -Does not move right upper extremity, strength 0 out of 5 compared to 3 out of 5 on the left -When right arm is raised, it falls against gravity -Able to squeeze my fingers -Has significant pain and tenderness throughout the extremity -Does show an old scaphoid fracture nonhealed -CT of the head does not show acute stroke -We will do MRI of the brain no acute CVA, MRI brachial plexus no acute findings -We will discuss with orthopedic service -Pain control Toradol, PT OT Status: Acute Additional A&P Information Cardiac echocardiogram, left ventricular appears to be dilated, diastolic function is normal, moderate pulmonary pretension Hep C positive Attestations Medical Necessity Statement*: Patient requires hospitalization for acute respiratory failure secondary COVID-19 Coding Level of Care Code Acute Balance Truer for g Fwd Diagnoses Acute encephalopathy G93.40 Respiratory failure with hypoxia J96.01 Chronicity: acute Pneumonia J18.9 Laterality: bilateral Lung location: unspecified part of lung Pneumonia type: due to unspecified organism COPD exacerbation J44.1 Interstitial lung disease J84.9 Partial small bowel obstruction K56.600 Pulmonary hypertension I27.20 Weakness of right upper extremity R29.898
[2021-05-24] MEDS: quetiapine 300 mg Tablet PO (20:05)
[2021-05-24] MEDS: acetaminophen 325 mg Tablet 650 MG PO (20:09)
[2021-05-25] VITALS (17 sets, daily range): BP systolic 102–149; BP diastolic 68–82; PULSE 72–117; RESP 16–20; TEMP 36.3–37.2; O2SAT 90–95
[2021-05-25] MEDS: ipratropium-albuterol 3 mL Neb INHALATION ×6 (01:55→23:53)
[2021-05-25] MEDS: FUROsemide 20 mg Tablet PO (05:11)
[2021-05-25] MEDS: enoxaparin 40 mg/0.4 mL Syringe SUBCUT (05:12)
--- NOTE | 2021-05-25 05:17 | PC.NURSE ---
SHIFT SUMMARY Has rested well tonight. Oriented to person only. Told me she thought she was in [place]. Had c/o back pain and did receive po Tylenol for this. Has been repositioned for comfort. Does not move self in bed well. O2 in place at 3l per NC. Alcantara patent and draining. Urine cloudy with some mucous strands noted. Receiving IV antibiotics as ordered. Continues to have swelling of right arm and says she cannot use it. Telemetry showing SR
[2021-05-25 05:40] LABS: Basophils % 0.3 %; Eosinophils # 0.2 10^3/uL (0.0-0.8); Hematocrit 36.5 % (37.0-47.0); Hemoglobin 11.2 g/dL (11.5-15.3); Lymphocytes # 1.4 10^3/uL (0.8-4.8); Lymphocytes % 21.7 %; Mean Corpuscular HGB Conc 30.7 g/dL (30.0-36.0); Mean Corpuscular Hemoglobin 29.7 pg (28.0-34.0); Mean Corpuscular Volume 96.8 fl (81-99); Mean Platelet Volume 8.9 fL (7.4-10.4); Monocytes # 0.7 10^3/uL (0.2-0.9); Monocytes % 11.1 %; Neutrophils # 4.05 10^3/uL (1.8-7.7); Neutrophils % 63.3 %; Nucleated Red Blood Cells % 0 %; Platelet Count 368 10^3/cmm (130-400); Red Blood Count 3.77 10^6/uL (4.1-5.3); Red Cell Distribution Width 13.9 % (12.1-15.1); White Blood Count 6.4 10^3/uL (4.0-10.0)
[2021-05-25 06:12] LABS: Alanine Aminotransferase 13 U/L (0-33); Alkaline Phosphatase 88 IU/L (35-105); Anion Gap 15.8 (5-19); Aspartate Amino Transferase 14 U/L (0-32); Blood Urea Nitrogen 9 mg/dL (6-20); Calcium 9.3 mg/dL (8.5-10.5); Carbon Dioxide 24 mmol/L (22-29); Chloride 103 mmol/L (98-107); Globulin 3.5 g/dL (1.3-4.6); Glomerular Filtration Rate 163.4 mL/min (90-130); Glucose 124 mg/dL (65-115); Magnesium 1.9 mg/dL (1.7-2.3); Osmolality Calculated 288 mOsm/kg (285-295); Phosphorus 3.9 mg/dL (2.5-4.5); Potassium 3.8 mmol/L (3.5-5.1); Sodium 139 mmol/L (136-145); Total Bilirubin 0.4 mg/dL (0.15-1.2); Total Protein 6.5 g/dL (6.6-8.7)
[2021-05-25] MEDS: budesonide 0.5 mg/2 mL Neb INHALATION ×2 (07:54→19:25)
[2021-05-25] MEDS: lamoTRIgine 100 mg Tablet 150 MG PO (08:28)
[2021-05-25] MEDS: fluoxetine 20 mg Capsule PO (08:28)
[2021-05-25] MEDS: buPROPion SR (12 HR) 150 mg Tablet PO (08:28)
[2021-05-25] MEDS: pantoprazole DR 40 mg Tablet PO (08:28)
[2021-05-25] MEDS: docusate sodium 100 mg Capsule PO (08:28)
[2021-05-25] MEDS: polyethylene glycol 3350 Pkt 17 gm PO (08:29)
--- NOTE | 2021-05-25 13:13 | P.PN_ITS ---
Subjective Subjective: Interval history: Patient was seen this morning, she is alert to person, to place, to time, no episodes of agitation overnight, she tells me that she is feeling quite well, has not had a bowel movement today, no abdominal pain, no nausea, vomiting, Medications: Reviewed: Yes Vitals/I&O/Wt Last Vital Signs Temp 98.4 F 05/25/21 11:32 Pulse 101 H 05/25/21 11:32 Resp 16 05/25/21 11:32 BP 102/70 05/25/21 11:32 Pulse Ox 94 05/25/21 11:32 05/24/21 05/25/21 05/25/21 22:59 06:59 14:59 Intake Total 300 / 640 250 / 890 100 / 100 Output Total 1000 / 1550 550 / 2100 Balance -700 / -910 -300 / -1210 100 / 100 Weight last 48 hrs Weight 105.415 kg Weight 109.316 kg Physical Exam Const: COMMON NORMALS: no acute distress and patient oriented x3 GENERAL APPEARANCE: frail appearing Resp: COMMON NORMALS: normal respiratory effort, No retractions, No use of accessory muscles and clear to auscultation bilaterally AUSCULTATION: clear to auscultation bilaterally Cardio: COMMON NORMALS: regular rate, regular rhythm, S1 normal heart sound present and S2 normal heart sound present RATE: regular rate RHYTHM: regular rhythm HEART SOUNDS: S1 normal heart sound present and S2 normal heart sound present GI: COMMON NORMALS: Normal to inspection, nondistended, normoactive bowel sounds present, Soft to palpation and non-tender INSPECTION: Yes normal to inspection and Yes abdominal distension AUSCULTATION: Yes normoactive bowel sounds and Yes Hypoactive bowel sounds present PALPATION: Yes Soft to palpation Extremity: COMMON NORMALS: no pedal edema NARRATIVE EXTREMITY EXAM: Right lower extremity amputation, secondary to infection Neuro: COMMON NORMALS: patient oriented x3 OTHER: Right upper extremity significant pain, tenderness with palpation throughout the right upper e xtremity, no significant strength right upper extremity, 1/5 strength in the shoulder, forearm, in the hand, she has 3 out of 5 strength, does have coordination, compared to 4 out of 5 on the left, moves the right lower extremity, Psych: COMMON NORMALS: mental status grossly normal Urinary Catheter Management^: 2-way Urethral: Cath Placed During This Visit: yes Reason for Continuing Indwelling Catheter: Acute Urinary Retention or Obstruction Urinary Catheter Date of Insertion: 05/09/21 Urinary Catheter Time of Insertion: 05:30 Data : 05/25/21 05:05 05/25/21 05:05 Micro: Microbiology 05/22/21 09:35 Urine Culture - Final Urine Catheterized A&P Assessment and plan (1) Acute encephalopathy: -Resolved -Extubated -follows commands, alert to person, to place, to time, no episode of agitation -Likely multifactorial from hypoxia, COVID-19, polypharmacy, severe anxiety -Minimize sedation -Haldol as needed, possibly can try Geodon -IV steroids stopped. -Persistent delirium/encephalopathy. EEG obtained, generalized slowing, no epileptiform discharges noted. -MRI of the head no evidence of acute CVA Status: Acute (2) Respiratory failure with hypoxia: -Extubated 05/20/2021 -Secondary to postobstructive pneumonia -Had aspiration 05/20/2021 -Afebrile for the last 3 4 hours -Group B strep growing on sputum culture. Pending fungal studies. Negative galactomannan. Negative QuantiFERON gold. Negative PCP induced sputum. -De-escalate to Augmentin -Currently on 3 L Status: Acute Qualifiers: Chronicity: acute Qualified Code(s): J96.01 - Acute respiratory failure with hypoxia (3) Pneumonia: As above. Secondary to postobstructive pneumonia, possible aspiration pneumonitis, superimposed on interstitial lung disease, emphysema, now aspiration event Intubated 05/09/2021 Extubated 05/20/2021 -Aspiration event 05/20/2021 early mornings before extubation Status post bronchoscopy, removal of foreign body right middle lobe Respiratory viral panel negative. Negative galactomannan, negative PCP induced sputum. Pending beta D glucan, fungal. Negative TB QuantiFERON gold mycobacterial studies. Status: Acute Qualifiers: Laterality: bilateral Lung location: unspecified part of lung Pneumonia type: due to unspecified organism Qualified Code(s): J18.9 - Pneumonia, unspecified organism (4) COPD exacerbation: budesonide. Nebs. Antibiotics. Status: Acute (5) Interstitial lung disease: Status: Acute (6) Partial small bowel obstruction: -General surgery on consult -NG tube removed -Status post 1 dose of methylnaltrexone -MiraLAX -Serial abdominal exams, monitor for bowel movements, avoid opiates -On MiraLAX, Colace -Good bowel sounds, abdomen less distended, having adequate soft bowel movements -Advance diet as tolerated Status: Resolved (7) Pulmonary hypertension: Status: Acute (8) Weakness of right upper extremity: -Right lower extremity has good range of motion, does follow commands, but is unable to move the right shoulder, right forearm, is able to squeeze my fingers -Does not move right upper extremity, strength to out of 5 compared to 4 out of 5 on the left -When right arm is raised, falls to bed slowly -Able to squeeze my fingers -Has significant pain and tenderness throughout the extremity -Does show an old scaphoid fracture nonhealed -CT of the head does not show acute stroke - MRI of the brain no acute CVA, MRI brachial plexus no acute findings -We will discuss with orthopedic service -Pain control Toradol, PT OT Status: Acute Additional A&P Information Cardiac echocardiogram, left ventricular appears to be dilated, diastolic function is normal, moderate pulmonary pretension Hep C positive Attestations Medical Necessity Statement*: Patient requires hospitalization for acute encephalopathy pneumonia, respiratory failure, small bowel obstruction Coding Level of Care Code Acute Electronic Publishing Specialist for [facility] Fwd Diagnoses Acute encephalopathy G93.40 Respiratory failure with hypoxia J96.01 Chronicity: acute Pneumonia J18.9 Laterality: bilateral Lung location: unspecified part of lung Pneumonia type: due to unspecified organism COPD exacerbation J44.1 Interstitial lung disease J84.9 Partial small bowel obstruction K56.600 Pulmonary hypertension I27.20 Weakness of right upper extremity R29.898
[2021-05-25] MEDS: clindamycin 150 mg Capsule 600 MG PO ×2 (15:33→22:26)
[2021-05-25] MEDS: doxycycline 100 mg Tablet PO (17:16)
--- NOTE | 2021-05-25 19:41 | PM.CONSULT ---
Providers/Reason For Consult Consulting Physician/Specialty*: MD Luna; orthopedic surgery Reason for Consult*: Right arm weakness. Attending Physician: Harsh Glover MD History of Present Illness History of Present Illness Dalila Samuels is a 61 year old female who is admitted with acute respiratory of intubation. As she became more awake she was noted to have an inability to move her right upper extremity. She is becoming less encephalopathic and able to give a better history. She describes difficulty moving her right arm for years. She refers to old fractures am assuming of her right wrist and a previous history of problems with her right shoulder. She currently feels her right arm function is very close to baseline. Meds/Allergies Home Medications and Allergies Home Medications Medication Instructions Recorded Confirmed Last Taken Type miscellaneous medical supply See Rx Instructions MISCELLANEOUS 11/28/19 05/07/21 Unknown Rx .COMPLEX #1 each dextromethorphan polistirex 30 10 ml PO Q12H PRN #89 ml 12/11/20 05/07/21 Unknown Rx mg/5 mL oral susp ext.release 12hr albuterol sulfate 2.5 mg INHALATION Q4H PRN #180 ml 01/13/21 05/07/21 Unknown Rx albuterol sulfate 90 mcg/actuation 2 puff INHALATION Q6H PRN 30 Days 01/13/21 05/07/21 Unknown Rx aerosol inhaler #18 gm budesonide 0.5 mg/2 mL suspension 0.5 mg INHALATION BID #60 ml 01/13/21 05/07/21 Unknown Rx for nebulization epinephrine 0.3 mg/0.3 mL 0.3 mg IM Q15M PRN #2 each 01/13/21 05/07/21 Unknown Rx injection, auto-injector miscellaneous medical supply See Rx Instructions MISCELLANEOUS 01/13/21 05/07/21 Unknown Rx .COMPLEX #1 ea vits no.129-ferrous fum 1 tab PO DAILY 90 Days #90 tab 01/13/21 05/07/21 Unknown Rx 27 mg iron-folic acid 800 mcg tablet promethazine 12.5 mg tablet 12.5 mg PO DAILY PRN 30 Days #30 01/13/21 05/07/21 Unknown Rx tab famotidine 20 mg tablet 20 mg PO BID 30 Days #60 tab 03/27/21 05/07/21 Unknown Rx ibuprofen 800 mg tablet 800 mg PO TID PRN 30 Days #90 tab 03/27/21 05/07/21 Unknown Rx MDD 2 tabs pregabalin 200 mg capsule 200 mg PO TID 30 Days #90 cap 03/27/21 05/07/21 Unknown Rx umeclidinium 62.5 mcg-vilanterol 1 inh INHALATION DAILY 30 Days #60 04/24/21 05/07/21 Unknown Rx 25 mcg/actuation powdr for ea inhalation bupropion HCl 150 mg PO BID 05/07/21 05/07/21 Unknown History fluoxetine 80 mg PO QAM 05/07/21 05/07/21 Unknown History furosemide 20 mg PO QAM 05/07/21 05/07/21 Unknown History lamotrigine 150 mg PO QAM 05/07/21 05/07/21 Unknown History quetiapine 600 mg PO BEDTIME 05/07/21 05/07/21 Unknown History Allergies Allergy/AdvReac Type Severity Reaction Status Date / Time Penicillins Allergy ALGY-Rash Verified 05/07/21 08:50 Current Medications Current Medications Generic Name Dose Route Start Last Admin Trade Name Freq PRN Reason Stop Dose Admin Acetaminophen 650 mg 05/07/21 04:06 05/24/21 20:09 Acetaminophen 325 Mg Tablet PO 650 mg Q6H PRN Administration Mild/Mod Pain Or Temp >/= 101 Albuterol/Ipratropium 3 ml 05/11/21 12:00 05/25/21 14:50 Ipratropium-Albuterol 3 Ml Neb INHALATION 3 ml Q4H.RESPIRATORY DONALD Administration Budesonide 0.5 mg 05/07/21 08:00 05/25/21 07:54 Budesonide 0.5 Mg/2 Ml Neb INHALATION 0.5 mg BID.RESPIRATORY DONALD Administration Bupropion HCl 150 mg 05/21/21 17:15 05/25/21 08:28 Bupropion Sr (12 Hr) 150 Mg Tablet PO 150 mg DAILY DONALD Administration Clindamycin HCl 600 mg 05/25/21 15:00 05/25/21 15:33 Clindamycin 150 Mg Capsule PO 600 mg Q8H DONALD Administration Protocol Doxycycline Monohydrate 100 mg 05/25/21 18:00 05/25/21 17:16 Doxycycline 100 Mg Tablet PO 100 mg BID DONALD Administration Protocol Enoxaparin Sodium 40 mg 05/07/21 06:00 05/25/21 05:12 Enoxaparin 40 Mg/0.4 Ml Syringe SUBCUT 40 mg Q24H DONALD Administration Fluoxetine HCl 20 mg 05/21/21 17:15 05/25/21 08:28 Fluoxetine 20 Mg Capsule PO 20 mg DAILY DONALD Administration Furosemide 20 mg 05/07/21 06:00 05/25/21 05:11 Furosemide 20 Mg Tablet PO 20 mg QAM DONALD Administration Haloperidol Lactate 1 mg 05/18/21 11:25 05/23/21 02:19 Haloperidol Inj 5 Mg/Ml Inj 1 Ml IVP 1 mg Q4H PRN Administration AGITATION Ketorolac Tromethamine 30 mg 05/22/21 13:28 05/23/21 23:15 Ketorolac 30 Mg/Ml Inj IVP 05/27/21 13:27 30 mg Q6H PRN Administration MODERATE PAIN Lamotrigine 150 mg 05/07/21 09:00 05/25/21 08:28 Lamotrigine 100 Mg Tablet PO 150 mg DAILY DONALD Administration Ondansetron HCl 4 mg 05/20/21 20:31 05/21/21 09:23 Ondansetron 2 Mg/Ml Sdv 2 Ml IVP 4 mg Q8H PRN Administration NAUSEA AND VOMITING Pantoprazole Sodium 40 mg 05/25/21 09:00 05/25/21 08:[address] 40 Mg Tablet PO 40 mg DAILY DONALD Administration Quetiapine Fumarate 300 mg 05/14/21 21:00 05/24/21 20:05 Quetiapine 300 Mg Tablet PO 300 mg BEDTIME DONALD Administration PFSH Acute PFSH: Medical History Borderline personality disorder Chronic idiopathic pain syndrome Chronic pain syndrome COPD (chronic obstructive pulmonary disease) DDD (degenerative disc disease), cervical DJD (degenerative joint disease), lumbar GERD (gastroesophageal reflux disease) Hepatitis C, chronic History of intravenous drug abuse Nicotine dependence, cigarettes, with other nicotine-induced disorders Opioid dependence, in remission Other stimulant dependence, in remission Psychiatric care PVD (peripheral vascular disease) with claudication Schizoaffective disorder, bipolar type Surgical History H/O tubal ligation Hx of BKA S/P cholecystectomy S/P tonsillectomy Family History Other CAD (coronary artery disease) Diabetes Lung disease Stroke Social History Smoking and tobacco status: current some day smoker cigarettes Years cigarettes smoked: 40 [ Other cigarette details: Hx of 1 PPD x 40 Years ] Quit status (tobacco): considering quitting Second hand smoke exposure: Yes Smoking risk assessment/counseling performed?: Yes Alcohol intake: former Counseling given: No Counseling given: No Lives independently: Yes Household members: none Marital status: Current occupational status: disabled History of recent travel: No Current gender identity: Female Female Reproductive History: Date of last menstrual period: 10/24/20 Spontaneous abortions: No Vitals/I&O/Wt Last Vital Signs Temp 98.2 F 05/25/21 16:06 Pulse 84 05/25/21 16:06 Resp 18 05/25/21 16:06 BP 121/68 05/25/21 16:06 Pulse Ox 90 05/25/21 16:06 05/25/21 05/25/21 05/25/21 06:59 14:59 22:59 Intake Total 250 / 890 340 / 340 240 / 580 Output Total 550 / 2100 Balance -300 / -1210 340 / 340 240 / 580 Weight last 48 hrs Weight 232 lb 6.4 oz Weight 241 lb Physical Exam Narrative: EXAM NARRATIVE: The patient is a elderly female who is preop she is able to answer some simple questions but is not a great historian. On examining her right upper extremity she will not fire her deltoid or abduct her arm away from her body. She can actively flex and extend her elbow against mild resistance. She will flex extend her R wrist although is limited on the right wrist due to motion loss She has diminished technical staff engineer strength and interossei strength on the right as well. Her sensation is intact to light touch. Urinary Catheter Management^: 2-way Urethral: Cath Placed During This Visit: yes Reason for Continuing Indwelling Catheter: Acute Urinary Retention or Obstruction Urinary Catheter Date of Insertion: 05/09/21 Urinary Catheter Time of Insertion: 05:30 Data Imaging^: Xray Ortho: My impression: Radiographs of the right shoulder are interpreted from 05/20/2021. The patient has degenerative changes of the glenohumeral joint and collapse of the humeral head possibly suggestive of remote avascular necrosis or very chronic degenerative change. Radiographs of the right forearm dated 05/21/2021 and right hand dated 05/22/2021 are are reviewed. The patient has severe degenerative changes of her wrist with a collapse of her carpus. Degenerative changes are seen of the distal radial ulnar joint MRI: Radiologist's impression: An MRI dated glenohumeral arthritis and severe tendinopathy of the rotator cuff she has generalized fatty atrophic change of her muscles consisting with some degree of chronicity to muscular injury at that time. An MRI report of the brachial plexus is reviewed dated 05/23/2022. With no abnormalities noted. An MRI of the head on that date showed no evidence of acute ischemia, mild parenchymal loss, and moderate to advanced atrophy of the temporal lobes and hippocampal formations A&P Assessment and plan (1) Weakness of right upper extremity: The patient has right upper extremity chronic in nature. There are number of potential contributing factors. The patient has severe degenerative change of the right glenohumeral joint which could contribute to chronic disuse. MRI evidence of atrophy as far back as 2018 was suggested that has at least been present for several years. The patient has additional degenerative changes in the right wrist which limit range of motion and use of the wrist and hand. I think a brachial plexus injury or radiculopathy would be much less likely as these would be unlikely to produce only motor weakness without sensory deficit. No intracranial pathology was provided on MRI to suggest a reasonable explanation. In any event, this appears to be a chronic condition. I do not feel further work-up would be warranted Status: Acute Coding Level of Care Code Acute Inspector Cold Working for [facility] Fwd Diagnoses Weakness of right upper extremity R29.898
[2021-05-25] MEDS: quetiapine 300 mg Tablet PO (19:59)
[2021-05-25 21:09] LABS: Glucose Point of Care 185 mg/dL (70-110)
[2021-05-26] VITALS (9 sets, daily range): BP systolic 114–143; BP diastolic 75–85; PULSE 79–124; RESP 16–20; TEMP 36.7–37.6; O2SAT 90–93
--- NOTE | 2021-05-26 00:41 | PC.NURSE ---
i reported high pulse 124 to nurse
[2021-05-26] MEDS: ipratropium-albuterol 3 mL Neb INHALATION ×5 (04:00→20:18)
--- NOTE | 2021-05-26 04:36 | PC.NURSE ---
i reported high pulse 120 to nurse
[2021-05-26] MEDS: clindamycin 150 mg Capsule 600 MG PO ×2 (06:11→14:07)
[2021-05-26] MEDS: FUROsemide 20 mg Tablet PO (06:11)
[2021-05-26] MEDS: enoxaparin 40 mg/0.4 mL Syringe SUBCUT (06:12)
--- NOTE | 2021-05-26 06:17 | PC.NURSE ---
SHIFT SUMMARY Has not slept at all tonight. Says she is tired but unable to get to sleep. Has watched TV. Is confused as to place and time/date but cooperative. Alcantara draining with urine still cloudy with some mucousy sediment noted. Dr Carrasco saw pt in the evening to examine right arm. Has quite abit less swelling tonight and is able to move arm better. Says it has been bad for years O2 has required replacing several times. Is usually up on her forehead when in room rounding. Denes SOB
[2021-05-26] MEDS: budesonide 0.5 mg/2 mL Neb INHALATION ×2 (08:05→20:18)
[2021-05-26] MEDS: doxycycline 100 mg Tablet PO (08:14)
[2021-05-26] MEDS: lamoTRIgine 100 mg Tablet 150 MG PO (08:14)
[2021-05-26] MEDS: pantoprazole DR 40 mg Tablet PO (08:14)
[2021-05-26] MEDS: fluoxetine 20 mg Capsule PO (08:14)
[2021-05-26] MEDS: ketorolac 30 mg/mL INJ IVP (08:14)
[2021-05-26] MEDS: buPROPion SR (12 HR) 150 mg Tablet PO (08:14)
--- NOTE | 2021-05-26 14:20 | PC.NURSE ---
patient complained of needing to urinate and has garcia catheter. expert medical writer bladder scanned patient and results were 58mL.
--- NOTE | 2021-05-26 16:59 | PC.NURSE ---
notified Dr Simon that patient refused her Doxycycline tonight.
--- NOTE | 2021-05-26 20:56 | P.PN_ITS ---
Subjective Subjective: Interval history: States she is overall doing okay. Denies cough with food or drink. Denies chest pain or pressure. Vitals/I&O/Wt Last Vital Signs Temp 98.8 F 05/26/21 20:00 Pulse 89 05/26/21 20:18 Resp 18 05/26/21 20:18 BP 143/85 05/26/21 20:00 Pulse Ox 91 05/26/21 20:18 05/26/21 05/26/21 05/26/21 06:59 14:59 22:59 Intake Total 280 / 860 240 / 240 Output Total 1130 / 1130 450 / 450 100 / 550 Balance -850 / -270 -210 / -210 -100 / -310 Weight last 48 hrs Weight 106.05 kg Weight 105.415 kg Physical Exam Const: COMMON NORMALS: alert GENERAL APPEARANCE: cooperative and comforta ble ORIENTATION/CONSCIOUSNESS: Yes awake and Yes confused OTHER: Intubated, sedated. HENMT: COMMON NORMALS: oropharynx normal Neck/C-Spine: COMMON NORMALS: no JVD Resp: COMMON NORMALS: clear to auscultation bilaterally AUSCULTATION: clear to auscultation bilaterally Cardio: COMMON NORMALS: no JVD, regular rhythm, S1 normal heart sound present, S2 normal heart sound present and No murmurs present (Cardio) RHYTHM: regular rhythm HEART SOUNDS: S1 normal heart sound present and S2 normal heart sound present GI: COMMON NORMALS: Normal to inspection, nondistended, normoactive bowel sounds present, Soft to palpation and non-tender PALPATION: Yes Soft to palpation Extremity: COMMON NORMALS: no joint enlargement and no pedal edema OTHER: Right BKA Neuro: COMMON NORMALS: moves all extremities SENSORIUM/ORIENTATION: Yes alert Skin: COMMON NORMALS: no rashes or lesions noted GENERAL SKIN EXAM: no rashes or lesions noted Urinary Catheter Management^: 2-way Urethral: Cath Placed During This Visit: yes Reason for Continuing Indwelling Catheter: Acute Urinary Retention or Obstruction Urinary Catheter Date of Insertion: 05/09/21 Urinary Catheter Time of Insertion: 05:30 Data : 05/25/21 05:05 05/25/21 05:05 A&P Assessment and plan (1) Weakness of right upper extremity: Orthopedic assessment and recommendations appreciated. Suspected more chronic process with degenerative changes in right glenohumeral joint additionally degenerative changes in the right wrist, less likely brachial plexus injury or radiculopathy. Continue physical therapy. Disposition planning and arrangements. -CT of the head does not show acute stroke - MRI of the brain no acute CVA, MRI brachial plexus no acute findings -Pain control Toradol, PT OT for physical deconditioning, functional decline Status: Acute (2) Acute encephalopathy: -Resolved -Extubated -follows commands, alert to person, to place, to time, no episode of agitation -Likely multifactorial from hypoxia, COVID-19, polypharmacy, severe anxiety -Minimize sedation -Haldol as needed, possibly can try Geodon -IV steroids stopped. -Persistent delirium/encephalopathy. EEG obtained, generalized slowing, no epileptiform discharges noted. -MRI of the head no evidence of acute CVA Status: Acute (3) Respiratory failure with hypoxia: -Extubated 05/20/2021 -Secondary to postobstructive pneumonia -Had aspiration 05/20/2021 -Afebrile for the last 3 4 hours -Group B strep growing on sputum culture. Pending fungal studies. Negative galactomannan. Negative QuantiFERON gold. Negative PCP induced sputum. -De-escalate to Augmentin -Currently on 3 L Status: Acute Qualifiers: Chronicity: acute Qualified Code(s): J96.01 - Acute respiratory failure with hypoxia (4) Pneumonia: Declined doxycycline today. As above. Secondary to postobstructive pneumonia, possible aspiration pneumonitis, superimposed on interstitial lung disease, emphysema, now aspiration event Intubated 05/09/2021 Extubated 05/20/2021 -Aspiration event 05/20/2021 early mornings before extubation Status post bronchoscopy, removal of foreign body right middle lobe Respiratory viral panel negative. Negative galactomannan, negative PCP induced sputum. Pending beta D glucan, fungal. Negative TB QuantiFERON gold mycobacterial studies. Status: Acute Qualifiers: Laterality: bilateral Lung location: unspecified part of lung Pneumonia type: due to unspecified organism Qualified Code(s): J18.9 - Pneumonia, unspecified organism (5) COPD exacerbation: budesonide. Nebs. Antibiotics. Status: Acute (6) Interstitial lung disease: Status: Acute (7) Partial small bowel obstruction: -General surgery on consult -NG tube removed -Status post 1 dose of methylnaltrexone -MiraLAX -Serial abdominal exams, monitor for bowel movements, avoid opiates -On MiraLAX, Colace -Good bowel sounds, abdomen less distended, having adequate soft bowel movements -Mechanical soft diet Status: Resolved (8) Pulmonary hypertension: Status: Acute Additional A&P Information Cardiac echocardiogram, left ventricular appears to be dilated, diastolic function is normal, moderate pulmonary hypertension Hep C positive Attestations 2 Medical Necessity Statement*: Continue admission for monitoring and management of further rehabilitation due to physical deconditioning, complicated also by ri ght upper extremity weakness, functional decline following protracted illness with severe COVID-19 hypoxic respiratory failure, prolonged encephalopathy. Coding Level of Care Code Acute Credit Union Manager for g Fwd Diagnoses Weakness of right upper extremity R29.898 Acute encephalopathy G93.40 Respiratory failure with hypoxia J96.01 Chronicity: acute Pneumonia J18.9 Laterality: bilateral Lung location: unspecified part of lung Pneumonia type: due to unspecified organism COPD exacerbation J44.1 Interstitial lung disease J84.9 Partial small bowel obstruction K56.600 Pulmonary hypertension I27.20
[2021-05-26] MEDS: quetiapine 300 mg Tablet PO (21:24)
[2021-05-26] MEDS: acetaminophen 325 mg Tablet 650 MG PO (21:32)
[2021-05-27] VITALS (16 sets, daily range): BP systolic 127–134; BP diastolic 68–91; PULSE 82–111; RESP 16–24; TEMP 36.6–37.3; O2SAT 90–96
[2021-05-27] MEDS: clindamycin 150 mg Capsule 600 MG PO ×3 (00:18→14:21)
[2021-05-27] MEDS: ipratropium-albuterol 3 mL Neb INHALATION ×5 (00:20→21:13)
[2021-05-27] MEDS: enoxaparin 40 mg/0.4 mL Syringe SUBCUT (06:43)
[2021-05-27] MEDS: FUROsemide 20 mg Tablet PO (06:43)
[2021-05-27] MEDS: budesonide 0.5 mg/2 mL Neb INHALATION ×2 (08:10→21:13)
[2021-05-27] MEDS: doxycycline 100 mg Tablet PO (08:57)
[2021-05-27] MEDS: fluoxetine 20 mg Capsule PO (08:57)
[2021-05-27] MEDS: pantoprazole DR 40 mg Tablet PO (08:57)
[2021-05-27] MEDS: lamoTRIgine 100 mg Tablet 150 MG PO (08:57)
[2021-05-27] MEDS: buPROPion SR (12 HR) 150 mg Tablet PO (08:57)
[2021-05-27 09:38] LABS: Basophils % 0.3 %; Eosinophils # 0.2 10^3/uL (0.0-0.8); Eosinophils % 3.2 %; Hematocrit 37.3 % (37.0-47.0); Hemoglobin 11.8 g/dL (11.5-15.3); Lymphocytes % 13.5 %; Mean Corpuscular HGB Conc 31.6 g/dL (30.0-36.0); Mean Corpuscular Hemoglobin 29.2 pg (28.0-34.0); Mean Corpuscular Volume 92.3 fl (81-99); Mean Platelet Volume 8.8 fL (7.4-10.4); Monocytes # 0.6 10^3/uL (0.2-0.9); Monocytes % 8.7 %; Neutrophils # 5.24 10^3/uL (1.8-7.7); Neutrophils % 73.7 %; Nucleated Red Blood Cells % 0 %; Platelet Count 391 10^3/cmm (130-400); Red Blood Count 4.04 10^6/uL (4.1-5.3); Red Cell Distribution Width 13.5 % (12.1-15.1); White Blood Count 7.1 10^3/uL (4.0-10.0)
[2021-05-27 10:04] LABS: Alanine Aminotransferase 16 U/L (0-33); Albumin Level 3.4 g/dL (3.5-5.2); Alkaline Phosphatase 93 IU/L (35-105); Anion Gap 15.6 (5-19); Aspartate Amino Transferase 25 U/L (0-32); Blood Urea Nitrogen 10 mg/dL (6-20); Calcium 9.3 mg/dL (8.5-10.5); Carbon Dioxide 26 mmol/L (22-29); Chloride 104 mmol/L (98-107); Globulin 3.3 g/dL (1.3-4.6); Glomerular Filtration Rate 163.4 mL/min (90-130); Glucose 164 mg/dL (65-115); Magnesium 1.7 mg/dL (1.7-2.3); Osmolality Calculated 297 mOsm/kg (285-295); Phosphorus 3.3 mg/dL (2.5-4.5); Potassium 3.6 mmol/L (3.5-5.1); Sodium 142 mmol/L (136-145); Total Bilirubin 0.4 mg/dL (0.15-1.2); Total Protein 6.7 g/dL (6.6-8.7)
--- NOTE | 2021-05-27 11:20 | PC.NURSE ---
notified Dr Simon that patient has yeasty rash to groin and is requesting something for it.
--- NOTE | 2021-05-27 15:12 | PM.PN ---
Subjective Subjective: Interval history: Working with physical therapy. States breathing is okay, denies chest pain. Saturations staying good when she is maintaining nasal cannula oxygen on. Vitals/I&O/Wt Last Vital Signs Temp 98.2 F 05/27/21 11:19 Pulse 89 05/27/21 14:00 Resp 17 05/27/21 13:06 BP 128/91 05/27/21 11:19 Pulse Ox 92 05/27/21 13:06 05/27/21 05/27/21 05/27/21 06:59 14:59 22:59 Intake Total 120 / 360 Output Total 300 / 850 Balance -180 / -490 Weight last 48 hrs Weight 106.186 kg Weight 106.05 kg Physical Exam Const: COMMON NORMALS: alert GENERAL APPEARANCE: cooperative and comfortable ORIENTATION/CONSCIOUSNESS: Yes awake HENMT: COMMON NORMALS: oropharynx normal Neck/C-Spine: COMMON NORMALS: no JVD Resp: COMMON NORMALS: clear to auscultation bilaterally AUSCULTATION: clear to auscultation bilaterally Cardio: COMMON NORMALS: no JVD, regular rhythm, S1 normal heart sound present, S2 normal heart sound present and No murmurs present (Cardio) RHYTHM: regular rhythm HEART SOUNDS: S1 normal heart sound present and S2 normal heart sound present GI: COMMON NORMALS: Normal to inspection, nondistended, normoactive bowel sounds present, Soft to palpation and non-tender INSPECTION: Yes abdominal distension PALPATION: Yes Soft to palpation Extremity: COMMON NORMALS: no joint enlargement and no pedal edema OTHER: Right BKA Neuro: COMMON NORMALS: moves all extremities SENSORIUM/ORIENTATION: Yes alert Skin: COMMON NORMALS: no rashes or lesions noted GENERAL SKIN EXAM: no rashes or lesions noted Urinary Catheter Management^: 2-way Urethral: Cath Placed During This Visit: yes Reason for Continuing Indwelling Catheter: Other Urinary Catheter Date of Insertion: 05/09/21 Urinary Catheter Time of Insertion: 05:30 Data : 05/27/21 09:18 05/27/21 09:18 Micro: Microbiology 05/22/21 11:11 Blood Culture - Final Blood NO GROWTH AFTER 5 DAYS 05/22/21 09:40 Blood Culture - Final Blood NO GROWTH AFTER 5 DAYS A&P Assessment and plan (1) Weakness of right upper extremity: She is doing well with physical therapy today. Pending authorization to continue rehabilitation at [facility] facility. Orthopedic assessment and recommendations appreciated. Suspected more chronic process with degenerative changes in right glenohumeral joint additionally degenerative changes in the right wrist, less likely brachial plexus injury or radiculopathy. Continue physical therapy. Disposition planning and arrangements. -CT of the head does not show acute stroke - MRI of the brain no acute CVA, MRI brachial plexus no acute findings -Pain control Toradol, PT OT for physical deconditioning, functional decline Status: Acute (2) Acute encephalopathy: -Resolved -Extubated -follows commands, alert to person, to place, to time, no episode of agitation -Likely multifactorial from hypoxia, COVID-19, polypharmacy, severe anxiety -off steroids -Resolved protracted delirium/encephalopathy. EEG w/o epileptiform discharges noted. -MRI of the head no evidence of acute CVA Status: Acute (3) Respiratory failure with hypoxia: -Extubated 05/20/2021 -Secondary to postobstructive pneumonia -Had aspiration 05/20/2021 -Afebrile for the last 3 4 hours -Group B strep growing on sputum culture. -De-escalated to doxycycline, clindamycin. -Currently on 3 L Pending fungal studies. Negative galactomannan. Negative QuantiFERON gold. Negative PCP induced sputum. Status: Acute Qualifiers: Chronicity: acute Qualified Code(s): J96.01 - Acute respiratory failure with hypoxia (4) Pneumonia: She was de-escalate to doxycycline, clindamycin. Doing well in terms of oxygenation. As she is doing well, will stop further antibiotics, monitor. Working with PT. Secondary to postobstructive pneumonia, possible aspiration pneumonitis, superimposed on interstitial lung disease, emphysema, now aspiration event Intubated 05/09/2021 Extubated 05/20/2021 -Aspiration event 05/20/2021 early mornings before extubation Status post bronchoscopy, removal of foreign body right middle lobe Respiratory viral panel negative. Negative galactomannan, negative PCP induced sputum. Pending beta D glucan, fungal. Negative TB QuantiFERON gold mycobacterial studies. Status: Acute Qualifiers: Laterality: bilateral Lung location: unspecified part of lung Pneumonia type: due to unspecified organism Qualified Code(s): J18.9 - Pneumonia, unspecified organism (5) COPD exacerbation: budesonide. Nebs. Antibiotics. Status: Acute (6) Interstitial lung disease: Status: Acute (7) Partial small bowel obstruction: -General surgery on consult -NG tube removed -Status post 1 dose of methylnaltrexone -MiraLAX -Serial abdominal exams, monitor for bowel movements, avoid opiates -On MiraLAX, Colace -Good bowel sounds, abdomen less distended, having adequate soft bowel movements -Mechanical soft diet Status: Resolved (8) Pulmonary hypertension: Status: Acute Additional A&P Information Cardiac echocardiogram, left ventricular appears to be dilated, diastolic function is normal, moderate pulmonary hypertension Hep C positive Attestations Medical Necessity Statement*: Continue hospitalization for monitoring with de-escalation of antibiotics, continued physical therapy following deconditioning after protracted severe illness, hospitalization, prolonged encephalopathy,, pending authorization for continued rehabilitation at SNF. Coding Level of Care Code Acute Grant Specialist for Дмитрийg Fwd Diagnoses Weakness of right upper extremity R29.898 Acute encephalopathy G93.40 Respiratory failure with hypoxia J96.01 Chronicity: acute Pneumonia J18.9 Laterality: bilateral Lung location: unspecified part of lung Pneumonia type: due to unspecified organism COPD exacerbation J44.1 Interstitial lung disease J84.9 Partial small bowel obstruction K56.600 Pulmonary hypertension I27.20
[2021-05-28] VITALS (15 sets, daily range): BP systolic 101–152; BP diastolic 58–90; PULSE 76–119; RESP 17–18; TEMP 36.2–37.1; O2SAT 90–95
[2021-05-28] MEDS: ipratropium-albuterol 3 mL Neb INHALATION ×4 (03:19→19:31)
--- NOTE | 2021-05-28 05:06 | PC.NURSE ---
i reported high pulse 105 to nurse
[2021-05-28] MEDS: budesonide 0.5 mg/2 mL Neb INHALATION ×2 (08:21→19:31)
[2021-05-28] MEDS: pantoprazole DR 40 mg Tablet PO (08:22)
[2021-05-28] MEDS: buPROPion SR (12 HR) 150 mg Tablet PO (08:22)
[2021-05-28] MEDS: fluoxetine 20 mg Capsule PO (08:22)
[2021-05-28] MEDS: acetaminophen 325 mg Tablet 650 MG PO (08:22)
[2021-05-28] MEDS: lamoTRIgine 100 mg Tablet 150 MG PO (08:23)
--- NOTE | 2021-05-28 13:15 | P.PN_ITS ---
Subjective Subjective: Interval history: Having diarrhea today. Otherwise denies shortness of breath, no chest pain. Reports having multiple liquid bowel movements today. No nausea or vomiting. Vitals/I&O/Wt Last Vital Signs Temp 98.0 F 05/28/21 11:44 Pulse 119 H 05/28/21 11:44 Resp 18 05/28/21 11:44 BP 110/78 05/28/21 11:44 Pulse Ox 95 05/28/21 11:44 05/27/21 05/28/21 05/28/21 22:59 06:59 14:59 Intake Total 500 / 500 Output Total 750 / 750 600 / 1350 550 / 550 Balance -250 / -250 -600 / -850 -550 / -550 Weight last 48 hrs Weight 106.005 kg Weight 106.186 kg Physical Exam Const: COMMON NORMALS: alert GENERAL APPEARANCE: cooperative and comfortable NUTRITIONAL APPEARANCE: overweight ORIENTATION/CONSCIOUSNESS: Yes awake OTHER: Multiple times on the commode today with diarrhea. HENMT: COMMON NORMALS: oropharynx normal Neck/C-Spine: COMMON NORMALS: no JVD Resp: COMMON NORMALS: clear to auscultation bilaterally AUSCULTATION: clear to auscultation bilaterally Cardio: COMMON NORMALS: no JVD, regular rhythm, S1 normal heart sound present, S2 normal heart sound present and No murmurs present (Cardio) RHYTHM: regular rhythm HEART SOUNDS: S1 normal heart sound present and S2 normal heart sound present GI: COMMON NORMALS: Normal to inspection, nondistended, normoactive bowel sounds present, Soft to palpation and non-tender INSPECTION: Yes abdominal distension PALPATION: Yes Soft to palpation Extremity: COMMON NORMALS: no joint enlargement and no pedal edema OTHER: Right BKA Neuro: COMMON NORMALS: moves all extremities SENSORIUM/ORIENTATION: Yes alert Skin: COMMON NORMALS: no rashes or lesions noted GENERAL SKIN EXAM: no rashes or lesions noted Urinary Catheter Management^: 2-way Urethral: Cath Placed During This Visit: yes Reason for Continuing Indwelling Catheter: Other Urinary Catheter Date of Insertion: 05/09/21 Urinary Catheter Time of Insertion: 05:30 Data : 05/27/21 09:18 05/27/21 09:18 Micro: Microbiology 05/22/21 11:11 Blood Culture - Final Blood NO GROWTH AFTER 5 DAYS 05/22/21 09:40 Blood Culture - Final Blood NO GROWTH AFTER 5 DAYS A&P Assessment and plan (1) Weakness of right upper extremity: Working with therapy. Pending authorization to continue rehabilitation at intermediate facility. Orthopedic assessment and recommendations appreciated. Suspected more chronic process with degenerative changes in right glenohumeral joint additionally degenerative changes in the right wrist, less likely brachial plexus injury or radiculopathy. Continue physical therapy. Disposition planning and arrangements. -CT of the head does not show acute stroke - MRI of the brain no acute CVA, MRI brachial plexus no acute findings -Pain control Toradol, PT OT for physical deconditioning, functional decline Status: Acute (2) Diarrhea: Antibiotics were discontinued yesterday on 05/27. Today reports multiple episodes of watery diarrhea. Requesting C. difficile. Discussed with her holding off antiviral medication until C. difficile ruled out. Denies bloody stool. No abdominal pain. No nausea or vomiting. Status: Acute (3) Acute encephalopathy: -Resolved -Extubated -follows commands, alert to person, to place, to time, no episode of agitation -Likely multifactorial from hypoxia, COVID-19, polypharmacy, severe anxiety -off steroids -Resolved protracted delirium/encephalopathy. EEG w/o epileptiform discharges noted. -MRI of the head no evidence of acute CVA Status: Acute (4) Respiratory failure with hypoxia: -Extubated 05/20/2021 -Secondary to postobstructive pneumonia -Had aspiration 05/20/2021 -Afebrile for the last 3 4 hours -Group B strep growing on sputum culture. -De-escalated to doxycycline, clindamycin. -Currently on 3 L Pending fungal studies. Negative galactomannan. Negative QuantiFERON gold. Negative PCP induced sputum. Status: Acute Qualifiers: Chronicity: acute Qualified Code(s): J96.01 - Acute respiratory failure with hypoxia (5) Pneumonia: She was de-escalate to doxycycline, clindamycin. Doing well in terms of oxygenation. As she is doing well, will stop further antibiotics, monitor. Working with PT. Secondary to postobstructive pneumonia, possible aspiration pneumonitis, superimposed on interstitial lung disease, emphysema, now aspiration event Intubated 05/09/2021 Extubated 05/20/2021 -Aspiration event 05/20/2021 early mornings before extubation Status post bronchoscopy, removal of foreign body right middle lobe Respiratory viral panel negative. Negative galactomannan, negative PCP induced sputum. Pending beta D glucan, fungal. Negative TB QuantiFERON gold mycobacterial studies. Status: Acute Qualifiers: Laterality: bilateral Lung location: unspecified part of lung Pneumonia type: due to unspecified organism Qualified Code(s): J18.9 - Pneumonia, unspecified organism (6) COPD exacerbation: budesonide. Nebs. Antibiotics. Status: Acute (7) Interstitial lung disease: Status: Acute (8) Partial small bowel obstruction: -General surgery on consult -NG tube removed -Status post 1 dose of methylnaltrexone -MiraLAX -Serial abdominal exams, monitor for bowel movements, avoid opiates -On MiraLAX, Colace -Good bowel sounds, abdomen less distended, having adequate soft bowel movements -Mechanical soft diet Status: Resolved (9) Pulmonary hypertension: Status: Acute Additional A&P Information Cardiac echocardiogram, left ventricular appears to be dilated, diastolic function is normal, moderate pulmonary hypertension Hep C positive Attestations Medical Necessity Statement*: Continue admission for additional assessment of watery diarrhea, continued work with physical therapy, mobilization, pending authorization for continued rehabilitation due to deconditioning after prolonged intubation, mechanical ventilation in ICU subsequently protracted encephalopathy. Coding Level of Care Code Acute Carpet Technician for g Fwd Diagnoses Weakness of right upper extremity R29.898 Diarrhea R19.7 Acute encephalopathy G93.40 Respiratory failure with hypoxia J96.01 Chronicity: acute Pneumonia J18.9 Laterality: bilateral Lung location: unspecified part of lung Pneumonia type: due to unspecified organism COPD exacerbation J44.1 Interstitial lung disease J84.9 Partial small bowel obstruction K56.600 Pulmonary hypertension I27.20
[2021-05-28] MEDS: quetiapine 300 mg Tablet PO (21:06)
[2021-05-29] VITALS (13 sets, daily range): BP systolic 106–153; BP diastolic 73–97; PULSE 76–119; RESP 16–20; TEMP 36.7–37.4; O2SAT 90–98
[2021-05-29] MEDS: ipratropium-albuterol 3 mL Neb INHALATION ×4 (00:20→15:44)
[2021-05-29] MEDS: enoxaparin 40 mg/0.4 mL Syringe SUBCUT (06:30)
[2021-05-29] MEDS: FUROsemide 20 mg Tablet PO (06:30)
[2021-05-29 06:38] LABS: Basophils % 0.5 %; Eosinophils # 0.2 10^3/uL (0.0-0.8); Eosinophils % 3.7 %; Hematocrit 40.1 % (37.0-47.0); Hemoglobin 12.5 g/dL (11.5-15.3); Lymphocytes # 1.5 10^3/uL (0.8-4.8); Lymphocytes % 23.1 %; Mean Corpuscular HGB Conc 31.2 g/dL (30.0-36.0); Mean Corpuscular Hemoglobin 28.7 pg (28.0-34.0); Mean Corpuscular Volume 92.2 fl (81-99); Mean Platelet Volume 8.9 fL (7.4-10.4); Monocytes # 0.6 10^3/uL (0.2-0.9); Monocytes % 9.6 %; Neutrophils % 62.3 %; Nucleated Red Blood Cells % 0 %; Platelet Count 389 10^3/cmm (130-400); Red Blood Count 4.35 10^6/uL (4.1-5.3); Red Cell Distribution Width 13.2 % (12.1-15.1); White Blood Count 6.6 10^3/uL (4.0-10.0)
[2021-05-29 06:56] LABS: Anion Gap 15.9 (5-19); Blood Urea Nitrogen 8 mg/dL (6-20); Calcium 9.8 mg/dL (8.5-10.5); Carbon Dioxide 24 mmol/L (22-29); Chloride 102 mmol/L (98-107); Glomerular Filtration Rate 163.4 mL/min (90-130); Glucose 153 mg/dL (65-115); Osmolality Calculated 289 mOsm/kg (285-295); Sodium 139 mmol/L (136-145)
[2021-05-29 07:15] LABS: Potassium 2.9 mmol/L (3.5-5.1)
[2021-05-29] MEDS: budesonide 0.5 mg/2 mL Neb INHALATION ×2 (07:48→20:50)
[2021-05-29] MEDS: pantoprazole DR 40 mg Tablet PO (09:53)
[2021-05-29] MEDS: fluoxetine 20 mg Capsule PO (09:53)
[2021-05-29] MEDS: potassium chloride ER 20 mEq Tablet 40 MEQ PO (09:53)
[2021-05-29] MEDS: buPROPion SR (12 HR) 150 mg Tablet PO (09:53)
[2021-05-29] MEDS: lamoTRIgine 100 mg Tablet 150 MG PO (09:53)
[2021-05-29] MEDS: quetiapine 300 mg Tablet PO (20:39)
--- NOTE | 2021-05-29 21:55 | P.PN_ITS ---
Subjective Subjective: Interval history: She overall is feeling well. Occasionally takes down her oxygen. Denies chest pain or pressure. Diarrhea so far has resolved. Vitals/I&O/Wt Last Vital Signs Temp 98.0 F 05/29/21 20:00 Pulse 82 05/29/21 20:50 Resp 18 05/29/21 20:50 BP 131/76 05/29/21 20:00 Pulse Ox 98 05/29/21 20:50 05/29/21 05/29/21 05/29/21 06:59 14:59 22:59 Intake Total 280 / 280 120 / 400 Output Total 650 / 1200 400 / 400 Balance -650 / -960 280 / 280 -280 / 0 Weight last 48 hrs Weight 105.687 kg Weight 106.005 kg Physical Exam Const: COMMON NORMALS: alert GENERAL APPEARANCE: cooperative and comfortable NUTRITIONAL APPEARANCE: overweight ORIENTATION/CONSCIOUSNESS: Yes awake OTHER: Multiple times on the commode today with diarrhea. HENMT: COMMON NORMALS: oropharynx normal Neck/C-Spine: COMMON NORMALS: no JVD Resp: COMMON NORMALS: clear to auscultation bilaterally AUSCULTATION: clear to auscultation bilaterally Cardio: COMMON NORMALS: no JVD, regular rhythm, S1 normal heart sound present, S2 normal heart sound present and No murmurs present (Cardio) RHYTHM: regular rhythm HEART SOUNDS: S1 normal heart sound present and S2 normal heart sound present GI: COMMON NORMALS: Normal to inspection, nondistended, normoactive bowel sounds present, Soft to palpation and non-tender INSPECTION: Yes abdominal distension PALPATION: Yes Soft to palpation Extremity: COMMON NORMALS: no joint enlargement and no pedal edema OTHER: Right BKA Neuro: COMMON NORMALS: moves all extremities SENSORIUM/ORIENTATION: Yes alert Skin: COMMON NORMALS: no rashes or lesions noted GENERAL SKIN EXAM: no rashes or lesions noted Urinary Catheter Management^: 2-way Urethral: Cath Placed During This Visit: yes Reason for Continuing Indwelling Catheter: Other Urinary Catheter Date of Insertion: 05/09/21 Urinary Catheter Time of Insertion: 05:30 Data : 05/29/21 05:27 05/29/21 05:27 Micro: Microbiology 05/28/21 12:19 C.difficile Toxin B Gene (PCR) - Final Stool A&P Assessment and plan (1) Weakness of right upper extremity: Declined to work with therapy today, stating she is sure that she is able to transfer when she is at home. She is missing part of her prostatic and so is unable to use it here. Will inquire to see if this can be put together so that we can assess that she can safely perform independent transfers given she lives alone. Pending authorization to continue rehabilitation at [facility]. Orthopedic assessment and recommendations appreciated. Suspected more chronic process with degenerative changes in right glenohumeral joint additionally degenerative changes in the right wrist, less likely brachial plexus injury or radiculopathy. Continue physical therapy. Disposition planning and arrangements. -CT of the head does not show acute stroke - MRI of the brain no acute CVA, MRI brachial plexus no acute findings -Pain control Toradol, PT OT for physical deconditioning, functional decline Status: Acute (2) Diarrhea: C. difficile negative. Resolved. Antibiotics were discontinued on 05/27. Status: Acute (3) Acute encephalopathy: Not sure if may be having some residual encephalopathy or cognitive deficits, appears she is insistent that she can safely transfer although has not been able to demonstrate this here. Continue to reassure, provide supportive care, closely monitor. Continue encouragement to work with PT and OT until we can ascertain she can safely care for herself and understands her limitations. -Extubated -follows commands, alert to person, to place, to time, no episode of agitation -Likely multifactorial from hypoxia, COVID-19, polypharmacy, severe anxiety -off steroids -Resolved protracted delirium/encephalopathy. EEG w/o epileptiform discharges noted. -MRI of the head no evidence of acute CVA Status: Acute (4) Respiratory failure with hypoxia: -Extubated 05/20/2021 -Secondary to postobstructive pneumonia -Had aspiration 05/20/2021 -Afebrile for the last 3 4 hours -Group B strep growing on sputum culture. -De-escalated off antibiotics -Currently on 3 L Pending fungal studies. Negative galactomannan. Negative QuantiFERON gold. Negative PCP induced sputum. Status: Acute Qualifiers: Chronicity: acute Qualified Code(s): J96.01 - Acute respiratory failure with hypoxia (5) Pneumonia: Off antibiotics since 05/27. Doing well so far. Working with PT. Secondary to postobstructive pneumonia, possible aspiration pneumonitis, superimposed on interstitial lung disease, emphysema, now aspiration event Intubated 05/09/2021 Extubated 05/20/2021 -Aspiration event 05/20/2021 early mornings before extubation Status post bronchoscopy, removal of foreign body right middle lobe Respiratory viral panel negative. Negative galactomannan, negative PCP induced sputum. Pending beta D glucan, fungal. Negative TB QuantiFERON gold mycobacterial studies. Status: Acute Qualifiers: Laterality: bilateral Lung location: unspecified part of lung Pneumonia type: due to unspecified organism Qualified Code(s): J18.9 - Pneumonia, unspecified organism (6) COPD exacerbation: budesonide. Nebs. Antibiotics. Status: Acute (7) Interstitial lung disease: Status: Acute (8) Partial small bowel obstruction: -General surgery on consult -NG tube removed -Status post 1 dose of methylnaltrexone -MiraLAX -Serial abdominal exams, monitor for bowel movements, avoid opiates -On MiraLAX, Colace -Good bowel sounds, abdomen less distended, having adequate soft bowel movements -Mechanical soft diet Status: Resolved (9) Pulmonary hypertension: Status: Acute Additional A&P Information Cardiac echocardiogram, left ventricular appears to be dilated, diastolic function is normal, moderate pulmonary hypertension Hep C positive Attestations Medical Necessity Statement*: Continue admission for closer assessment of r ecent encephalopathy, safety awareness given she lives alone, has not been able to demonstrate ability to safely transfer on her own, continued arrangements for rehabilitation, continued mobilization with PT and OT. Coding Level of Care Code Acute Foil Stamp Operator for Dorcas Garciad Diagnoses Weakness of right upper extremity R29.898 Diarrhea R19.7 Acute encephalopathy G93.40 Respiratory failure with hypoxia J96.01 Chronicity: acute Pneumonia J18.9 Laterality: bilateral Lung location: unspecified part of lung Pneumonia type: due to unspecified organism COPD exacerbation J44.1 Interstitial lung disease J84.9 Partial small bowel obstruction K56.600 Pulmonary hypertension I27.20
[2021-05-30] VITALS (7 sets, daily range): BP systolic 111–133; BP diastolic 54–87; PULSE 78–122; RESP 16–115; TEMP 36.7–37.3; O2SAT 90–93
--- NOTE | 2021-05-30 05:46 | PC.NURSE ---
Kimberly with lab notified this RN of pt refusing am labs stating no and maybe try again later .
[2021-05-30] MEDS: enoxaparin 40 mg/0.4 mL Syringe SUBCUT (05:50)
[2021-05-30] MEDS: FUROsemide 20 mg Tablet PO (05:50)
[2021-05-30] MEDS: fluoxetine 20 mg Capsule PO (07:59)
[2021-05-30] MEDS: lamoTRIgine 100 mg Tablet 150 MG PO (07:59)
[2021-05-30] MEDS: pantoprazole DR 40 mg Tablet PO (07:59)
[2021-05-30] MEDS: buPROPion SR (12 HR) 150 mg Tablet PO (07:59)
[2021-05-30] MEDS: budesonide 0.5 mg/2 mL Neb INHALATION (08:57)
[2021-05-30] MEDS: ipratropium-albuterol 3 mL Neb INHALATION (08:57)
--- NOTE | 2021-05-30 13:38 | PM.DCS ---
Discharge Providers Date of Admission: 05/07/21 02:15 Date of Discharge: May 30, 2021 Attending Provider at Admission: Giuliana Ocasio MD Attending Provider at Discharge: David Simon Diagnoses at Discharge Discharge Diagnosis (1) Weakness of right upper extremity: Status: Acute (2) Acute encephalopathy: Status: Acute (3) Respiratory failure with hypoxia: Status: Acute Qualifiers: Chronicity: acute Qualified Code(s): J96.01 - Acute respiratory failure with hypoxia (4) Pneumonia: Status: Acute Qualifiers: Laterality: bilateral Lung location: unspecified part of lung Pneumonia type: due to unspecified organism Qualified Code(s): J18.9 - Pneumonia, unspecified organism (5) COPD exacerbation: Status: Acute (6) Interstitial lung disease: Status: Acute (7) Partial small bowel obstruction: Status: Resolved (8) Pulmonary hypertension: Status: Acute (9) Diarrhea: Status: Acute Reason for Visit Reason for Visit: SOB Hospital Course Hospital Course Pleasant 61-year-old lady, current smoker, with history of COPD, interstitial lung disease, pulmonary hypertension, history of chronic pleurisy, remote history of IV drug abuse, schizoaffective disorder, history of BKA, among other chronic conditions, had a prolonged hospitalization during which was treated for pneumonia, hypoxic respiratory failure, COPD exacerbation, requiring intubation, mechanical ventilation, underwent bronchoscopic evaluation with finding of foreign body of popcorn kernel at the entrance to right middle lobe, which was extracted. Subsequently required continued treatment and ventilator support for pneumonia, eventually growing group B strep on sputum culture. COVID-19 was negative. Attempts at weaning of sedation was complicated by persistent delirium, inability to follow commands, secondary to encephalopathy, possibly due to critical illness, respiratory failure, at presentation urine toxicology tested positive for amphetamine, although this may have been cross-reaction from bupropion as per discussion with her daughter she has not used any drugs in recent history. Confirmatory test not obtained. No seizure activity noted on EEG. Her medications were adjusted as she is on large doses of multiple psychiatric meds. Quetiapine dose was decreased from 600-300. Bupropion was withheld as was buspirone and fluoxetine temporarily. Continued weaning of sedation with Precedex support. Also noted complication of partial small bowel obstruction which was treated conservatively and assessed by surgery. Her condition gradually improved, she was able to be extubated, deescalated of IV antibiotics, and subsequently antibiotic discontinued entirely. She continues to do well on 3 L nasal cannula. She has been quite significantly deconditioned, having difficulties even with transfers. This has been made worse by persistent weakness on the right side. No CVA noted on MRI. Was seen by orthopedics, this is thought to be secondary to degenerative joint disease, brachial plexopathy less likely. In the setting of BKA has been unable to stand/walk. Lives alone at home. Recommendations to continue work on strengthening, transfers. Please refer her also to GI panel for reassessment of her prosthesis which appears may no longer fit her to allow for subsequent mobilization once she is improving. She at times feels that she can do more than she actually can, although on reassessment she is unable to manage repositioning and transfers without assistance, and thus is agreeable today to proceed with rehabilitation at SNF prior to being able to return home. She is asked to follow-up with pulmonology in clinic. Her psychiatric medications are as below, and she is asked to resume follow-up with behavioral health care. Intermittent hypokalemia noted in the hospital, she is also set up with potassium supplementation. Please follow-up potassium level in 4 days. Please see full documentation from this hospital stay for details. Physical Exam Const: COMMON NORMALS: alert GENERAL APPEARANCE: cooperative and comfortable NUTRITIONAL APPEARANCE: overweight ORIENTATION/CONSCIOUSNESS: Yes awake OTHER: Multiple times on the commode today with diarrhea. HENMT: COMMON NORMALS: oropharynx normal Neck/C-Spine: COMMON NORMALS: no JVD Resp: COMMON NORMALS: clear to auscultation bilaterally AUSCULTATION: clear to auscultation bilaterally Cardio: COMMON NORMALS: no JVD, regular rhythm, S1 normal heart sound present, S2 normal heart sound present and No murmurs present (Cardio) RHYTHM: regular rhythm HEART SOUNDS: S1 normal heart sound present and S2 normal heart sound present GI: COMMON NORMALS: Normal to inspection, nondistended, normoactive bowel sounds present, Soft to palpation and non-tender INSPECTION: Yes abdominal distension PALPATION: Yes Soft to palpation Extremity: COMMON NORMALS: no joint enlargement and no pedal edema OTHER: Right BKA Neuro: COMMON NORMALS: moves all extremities SENSORIUM/ORIENTATION: Yes alert Skin: COMMON NORMALS: no rashes or lesions noted GENERAL SKIN EXAM: no rashes or lesions noted Urinary Catheter Management^: 2-way Urethral: Cath Placed During This Visit: yes Reason for Continuing Indwelling Catheter: Other Urinary Catheter Date of Insertion: 05/09/21 Urinary Catheter Time of Insertion: 05:30 Discharge Data Data Completed and Pending: Completed Studies During Hospitalization Category Date Time Status CT abdomen pelvis w con* 98035 Rout ine Cat Scan 05/19/21 08:[address] angio chest PE protcl 08839 Urge nt Cat Scan 05/07/21 01:[address] head wo con* 7 0450 Routine Cat Scan 05/17/21 12:[address] head wo con* 7 0450 Routine Cat Scan 05/22/21 08:56 Completed XR KUB portable 7 4018 Routine Exams 05/21/21 07:00 Completed XR KUB portable 7 4018 Stat Exams 05/19/21 08:12 Completed XR KUB portable 7 4018 Stat Exams 05/19/21 22:40 Completed XR KUB portable 7 4018 Stat Exams 05/20/21 08:04 Completed XR acute abdomen series 10904 Routi ne Exams 05/17/21 15:43 Completed XR chest 1V ryder ble 71115 Routine Exams 05/08/21 07:00 Completed XR chest 1V ryder ble 78655 Routine Exams 05/09/21 07:00 Completed XR chest 1V ryder ble 73634 Routine Exams 05/10/21 07:00 Completed XR chest 1V ryder ble 51330 Routine Exams 05/11/21 07:44 Completed XR chest 1V ryder ble 20236 Routine Exams 05/13/21 06:00 Completed XR chest 1V ryder ble 00708 Routine Exams 05/15/21 06:59 Completed XR chest 1V ryder ble 76593 Routine Exams 05/19/21 07:00 Completed XR chest 1V ryder ble 50012 Routine Exams 05/22/21 07:00 Completed XR chest 1V ryder ble 26324 Stat Exams 05/09/21 15:38 Completed XR chest 1V ryder ble 60858 Stat Exams 05/14/21 16:25 Completed XR chest 1V ryder ble 82748 Stat Exams 05/20/21 06:38 Completed XR chest 1V ryder ble 85731 Stat Exams 05/20/21 09:09 Completed XR chest 1V ryder ble 33279 Urgent Exams 05/06/21 23:57 Completed XR chest 1V ryder ble 81438 Urgent Exams 05/11/21 12:14 Completed XR forearm RT 2V 82187 Routine Exams 05/21/21 11:41 Completed XR hand RT 2V 731 20 Routine Exams 05/22/21 08:56 Completed XR shoulder RT 1V 84389 Routine Exams 05/20/21 18:37 Completed MR brachialplexus wo con 07294 Rout ine MRI 05/23/21 10:15 Completed MR head wo con* 7 0551 Routine MRI 05/23/21 10:15 [place] [address] Routin e Ultrasound 05/10/21 09:00 [place] [address] Routin e Ultrasound 05/23/21 13:51 Completed CV. echo complete * 67836 Routine Ultrasound 05/09/21 08:31 Completed Pending at discharge Category Date Time Status EEG electroenceph alogram Routine Exams 05/13/21 14:44 Ordered Basic Metabolic P casey AM LABS Lab 05/31/21 04:00 Ordered Basic Metabolic P casey AM LABS Lab 06/01/21 04:00 Ordered Miscellaneous Alisa t Routine Lab 05/08/21 18:01 Received Miscellaneous Alisa t Routine Lab 05/08/21 18:02 Received Miscellaneous Alisa t Routine Lab 05/08/21 20:01 Received Sputum Culture an d Gram Stain Stat Lab 05/22/21 07:53 Uncollected Vitals: Last Vital Signs Temp 98.5 F 05/30/21 11:31 Pulse 105 H 05/30/21 11:31 Resp 16 05/30/21 11:31 BP 118/83 05/30/21 11:31 Pulse Ox 91 05/30/21 11:31 Discharge Plan Discharge Patient Disposition: Xfer SNF Condition: Stable Prescriptions: New potassium chloride 20 mEq tablet,ER particles/crystals 20 meq PO DAILY Qty: 14 RF: 0 polyethylene glycol 3350 [Miralax] 17 gram powder in packet 17 g PO DAILY PRN (Reason: constipation) Qty: 30 RF: 0 Continued promethazine 12.5 mg tablet 12.5 mg PO DAILY PRN (Reason: nausea and vomiting) 30 Days Qty: 30 RF: 5 budesonide 0.5 mg/2 mL suspension for nebulization 0.5 mg inhalation BID Qty: 60 RF: 5 albuterol sulfate 2.5 mg /3 mL (0.083 %) solution for nebulization 2.5 mg inhalation Q4H PRN (Reason: shortness of breath or wheezing) Qty: 180 RF: 5 albuterol sulfate 90 mcg/actuation HFA aerosol inhaler 2 puff INHALATION Q6H PRN (Reason: shortness of breath or wheezing) 30 Days Qty: 18 RF: 5 One Daily 27 mg iron- 800 mcg tablet 1 tab PO DAILY 90 Days Qty: 90 RF: 1 epinephrine [EpiPen 2-Reji] 0.3 mg/0.3 mL auto-injector 0.3 mg IM Q15M PRN (Reason: anaphylaxis) Qty: 2 RF: 0 miscellaneous medical supply Misc See Rx Instructions miscellaneous .COMPLEX Qty: 1 RF: 0 pregabalin 200 mg capsule 200 mg PO TID 30 Days Qty: 90 RF: 2 famotidine 20 mg tablet 20 mg PO BID 30 Days Qty: 60 RF: 2 Anoro Ellipta 62.5-25 mcg/actuation blister with device 1 inh inhalation DAILY 30 Days Qty: 60 RF: 3 dextromethorphan polistirex 30 mg/5 mL suspension,extended rel 12 hr 10 ml PO Q12H PRN (Reason: cough) Qty: 89 RF: 0 miscellaneous medical supply Misc See Rx Instructions miscellaneous .COMPLEX Qty: 1 RF: 0 bupropion HCl 150 mg tablet sustained-release 12 hr 150 mg PO BID RF: 0 lamotrigine 100 mg tablet 150 mg PO QAM RF: 0 Changed fluoxetine 40 mg capsule 40 mg PO QAM Qty: 0 RF: 0 quetiapine 300 mg tablet 300 mg PO BEDTIME Qty: 0 RF: 0 furosemide 20 mg tablet 20 mg PO QAM PRN (Reason: Edema) Qty: 0 RF: 0 Discontinued ibuprofen 800 mg tablet 800 mg PO TID MDD 2 tabs PRN (Reason: pain) 30 Days Qty: 90 RF: 2 Discharge Orders: Discharge Order (Routine); Ordered 05/30/21 Ordered By: David Simon Referrals: [facility] [Other] (Call number and answer a series a question. Will be assigned points off of answers and number of points will determine services qualified for.) [facility] [Provider Group] - 1 week Nicole Louis MD [Physician] - 4-7 days (will need f/up appointment) Dena Ramirez MD [Physician] - 2 weeks Discharge Diet: As Directed Discharge Activity: Increase activity as tolerated, As per PT/OT instructions and Oxygen as instructed Activity Restrictions/Additional Instructions: Continue soft mechanical diet. Continue oxygen 3 L nasal cannula as needed, wean down as tolerating. Target saturation 88-92%. Continue to work on mobilization/transfers. Please refer also for assessment by JULISSA&O prostatic for reassessment of prosthesis which appears may not fit her any longer. Please recheck potassium level in 4 days. Potassium level was 2.9 on 05/29, labs could not be obtained on 05/30. Provided with potassium supplementation. Please follow-up with pulmonology in office with regards to COPD, pulmonary hypertension, interstitial lung disease. Resume follow-up with behavioral health care. Avoid constipation due to partial small bowel obstruction while in the hospital which has resolved. Continue bowel regimen. Encourage smoking cessation. Discharge Attestations Time Spent in Discharge Care*: greater than 30 min Quality Metrics Clinical Quality Measures During this hospital stay, did patient experience: None Coding Level of Care Code Acute g [facility] note Diagnoses Weakness of right upper extremity R29.898 Acute encephalopathy G93.40 Respiratory failure with hypoxia J96.01 Chronicity: acute Pneumonia J18.9 Laterality: bilateral Lung location: unspecified part of lung Pneumonia type: due to unspecified organism COPD exacerbation J44.1 Interstitial lung disease J84.9 Partial small bowel obstruction K56.600 Pulmonary hypertension I27.20 Diarrhea R19.7
--- NOTE | 2021-05-30 13:41 | PC.NURSE ---
Patient continues to refuse to allow lab to draw blood from BMP ordered this morning. Dr. marx aware.
--- NOTE | 2021-05-30 15:26 | PC.NURSE ---
Report called to ALFREDO Siddiqui, at [facility].
--- NOTE | 2021-06-02 15:17 | PC.SOCIAL ---
per Ana Clarke pt discharged home. Patient is currently being evaluated in the ED
== END 2021-05-30 15:30 | disposition skilled nursing facility (03) | DRG 163 ==
LOC: ER 05-07 02:35 → ICU 05-07 05:52 → MEDSURG 05-22 21:55
PROVIDERS: Family Medicine; Internal Medicine Pulmonary Disease; Admitting Provider Student in an Organized Health Care Education/Training Program; Emergency Provider Emergency Medicine; Visit Provider Internal Medicine
PROC: 0BJ08ZZ Inspection of Tracheobronchial Tree, Via Natural or Artificial Opening Endoscopic (ICD-10-PCS; CPT 31622; principal; 2021-05-09 18:05)
DX: J69.0 Pneumonitis due to inhalation of food and vomit (principal); G92.8 Other toxic encephalopathy; J80 Acute respiratory distress syndrome; T17.828A Food in other parts of respiratory tract causing other injury, initial encounter; F05 Delirium due to known physiological condition; K56.600 Partial intestinal obstruction, unspecified as to cause; X58.XXXA Exposure to other specified factors, initial encounter; J43.9 Emphysema, unspecified; F60.3 Borderline personality disorder; G89.4 Chronic pain syndrome; M50.30 Other cervical disc degeneration, unspecified cervical region; M51.36 Other intervertebral disc degeneration, lumbar region; K21.9 Gastro-esophageal reflux disease without esophagitis; B18.2 Chronic viral hepatitis C; F17.210 Nicotine dependence, cigarettes, uncomplicated; I73.9 Peripheral vascular disease, unspecified; F25.0 Schizoaffective disorder, bipolar type; Z89.519 Acquired absence of unspecified leg below knee; F41.9 Anxiety disorder, unspecified; Z79.51 Long term (current) use of inhaled steroids; E87.6 Hypokalemia; R19.7 Diarrhea, unspecified; M19.011 Primary osteoarthritis, right shoulder; K59.03 Drug induced constipation; T40.605A Adverse effect of unspecified narcotics, initial encounter; B95.1 Streptococcus, group B, as the cause of diseases classified elsewhere; I27.20 Pulmonary hypertension, unspecified; F15.21 Other stimulant dependence, in remission; F11.21 Opioid dependence, in remission; J39.8 Other specified diseases of upper respiratory tract
CPT/HCPCS: 31622; 31624; 31635; 36415; 36416; 36592; 36600; 51702; 70450; 70551; 71045; 71275; 71550; 73020; 73090; 73120; 74018; 74022; 74177; 80048; 80051; 80053; 80074; 80175; 80202; 80306; 82140; 82330; 82550; 82728; 82803; 82805; 82962; 83605; 83615; 83735; 83880; 84100; 84145; 84478; 84484; 85007; 85025; 85378; 85384; 85610; 85730; 86140; 86403; 86480; 86592; 86606; 86612; 86628; 86635; 86698; 87040; 87070; 87086; 87205; 87281; 87305; 87385; 87426; 87449; 87493; 87556; 87635; 87641; 87798; 87804; 87806; 92526; 92610; 93005; 93306; 93970; 93971; 94002; 94003; 94640; 94664; 94799; 96365; 96367; 96372; 96375; 97110; 97112; 97161; 97165; 97530; 97535; 99285; A4570; C9113; J0456; J0696; J0743; J1040; J1100; J1170; J1630; J1650; J1885; J1940; J1956; J2060; J2212; J2250; J2270; J2405; J2704; J2920; J3010; J3370; J3475; J3480; J3490; J3535; J7050; J7626; Q0144; Q9967

== ENCOUNTER 2021-06-02 14:23 | Emergency (ER) | payer MEDICAID, SELFPAY ==
[2021-06-02 15:19] VITALS: BP 132/86; PULSE 110; RESP 24; TEMP 36.8; O2SAT 94; BMI 33.0
--- NOTE | 2021-06-02 17:00 | ECG_ITS ---
[facility] Test Date: 2021-06-03 Pat Name: Dalila Samuels Department: Room: Gender: Female [employer] Tender: : 1960 Requested By: Desiree Elizalde Order Number: [id number] Danae MD: Megan Todd M.D. Measurements Intervals [place] Rate: 101 P: 61 [place]: 163 QRS: 19 QRSD: 98 T: 43 QT: 383 QTc: 498 Interpretive Statements SINUS TACHYCARDIA ABNORMAL RHYTHM ECG Compared to ECG 05/21/2021 06:03:47 Sinus bradycardia no longer present Electronically Signed On 06-03-2021 22:19:16 CDT by Megan Todd M.D. [id number]
--- NOTE | 2021-06-02 17:00 | XRR_ITS ---
PROCEDURE INFORMATION: Exam: XR Chest Exam date and time: 06/02/2021 5:00 PM Age: 61 years old Clinical indication: Dyspnea; Additional info: Weakness TECHNIQUE: Imaging protocol: XR of the chest. Views: 1 view. COMPARISON: CR XR chest 1V portable [id number] 05/22/2021 5:31 AM FINDINGS: Lungs: Background emphysema. Fine reticular interstitial lung changes are noted, however less pronounced than prior imaging. No focal airspace consolidation. Pleural spaces: Unremarkable. No pleural effusion. No pneumothorax. Heart/Mediastinum: Unremarkable. No cardiomegaly. Bones/joints: Demineralized bones. Arthritis changes in both shoulders worse on right than left. Nonspecific erosive degenerative joint disease of the right shoulder noted in particular. XR/XR chest 1V portable [id number] IMPRESSION: 1. Background nonspecific interstitial lung changes. 2. No focal pneumonia. Radiation Dose CTDIVOL = (mGy): DLP = (mGy-cm)
[2021-06-02 20:43] LABS: Basophils % 0.5 %; Eosinophils # 0.2 10^3/uL (0.0-0.8); Eosinophils % 3.2 %; Hematocrit 41.1 % (37.0-47.0); Hemoglobin 13.7 g/dL (11.5-15.3); Lymphocytes # 2.1 10^3/uL (0.8-4.8); Lymphocytes % 31.4 %; Mean Corpuscular HGB Conc 33.3 g/dL (30.0-36.0); Mean Corpuscular Hemoglobin 29.6 pg (28.0-34.0); Mean Corpuscular Volume 88.8 fl (81-99); Mean Platelet Volume 9.4 fL (7.4-10.4); Monocytes # 0.8 10^3/uL (0.2-0.9); Monocytes % 12.2 %; Neutrophils # 3.48 10^3/uL (1.8-7.7); Neutrophils % 52.1 %; Nucleated Red Blood Cells % 0 %; Platelet Count 396 10^3/cmm (130-400); Red Blood Count 4.63 10^6/uL (4.1-5.3); Red Cell Distribution Width 13.2 % (12.1-15.1); White Blood Count 6.7 10^3/uL (4.0-10.0)
[2021-06-02 21:56] LABS: Alanine Aminotransferase 20 U/L (0-33); Albumin Level 3.8 g/dL (3.5-5.2); Alkaline Phosphatase 115 IU/L (35-105); Anion Gap 16.3 (5-19); Aspartate Amino Transferase 16 U/L (0-32); Blood Urea Nitrogen 5 mg/dL (6-20); Calcium 9.9 mg/dL (8.5-10.5); Carbon Dioxide 24 mmol/L (22-29); Chloride 100 mmol/L (98-107); Creatine Phosphokinase 23 U/L (26-192); Globulin 3.5 g/dL (1.3-4.6); Glomerular Filtration Rate 163.4 mL/min (90-130); Glucose 146 mg/dL (65-115); Osmolality Calculated 284 mOsm/kg (285-295); Potassium 3.3 mmol/L (3.5-5.1); Sodium 137 mmol/L (136-145); Total Bilirubin 0.4 mg/dL (0.15-1.2); Total Protein 7.3 g/dL (6.6-8.7)
[2021-06-02 22:01] LABS: Procalcitonin 0.08 ng/mL (0-0.5)
--- NOTE | 2021-06-03 00:04 | W.ED.WEAKNES ---
HPI - Weakness General: Chief complaint: Weakness Stated complaint: N/V/WEAKNESS, ON FLOOR ALL NIGHT Time Seen by Provider: 06/02/21 23:18 Source: patient Mode of arrival: ambulatory Limitations: no limitations History of Present Illness: HPI Narrative: 61-year-old female who had been admitted to the hospital for over 3 weeks was discharged 2 days ago. 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 Associated symptoms: Reports nausea; Denies chest pain, chills, dysuria, easy bruising, fever(s) or headache(s) Review of Systems Const: Denies: fever(s), chills, body aches or change in appetite Eyes: Denies: blurry vision or eye discomfort ENMT: Denies: throat pain or dental pain Card: Denies: chest pain Resp: Denies: dyspnea GI: Reports: nausea : Denies: dysuria Musc: Reports: muscle weakness Skin/Breast: Denies: rash Neuro: Denies: headache(s) Psych: Denies: depression Beau/Lymph: Denies: easy bruising All/Imm: Denies: urticaria PFSH ED PFSH: Medical History Amphetamine addiction Anxiety Aspiration of foreign body in respiratory tract Borderline personality disorder Chronic idiopathic pain syndrome Chronic pain syndrome COPD (chronic obstructive pulmonary disease) DDD (degenerative disc disease), cervical DJD (degenerative joint disease), lumbar GERD (gastroesophageal reflux disease) Hepatitis C, chronic History of intravenous drug abuse Interstitial lung disease Nicotine dependence, cigarettes, with other nicotine-induced disorders Opioid dependence, in remission Other stimulant dependence, in remission Partial small bowel obstruction Psychiatric care Pulmonary hypertension PVD (peripheral vascular disease) with claudication Respiratory failure with hypoxia Schizoaffective disorder, bipolar type Surgical History H/O tubal ligation Hx of BKA S/P cholecystectomy S/P tonsillectomy Family History Other CAD (coronary artery disease) Diabetes Lung disease Stroke Social History Smoking and tobacco status: current some day smoker cigarettes Years cigarettes smoked: 40 [ Other cigarette details: Hx of 1 PPD x 40 Years ] Quit status (tobacco): considering quitting Second hand smoke exposure: Yes Smoking risk assessment/counseling performed?: Yes Alcohol intake: former Counseling given: No Counseling given: No Lives independently: Yes Household members: none Marital status: Current occupational status: disabled History of recent travel: No Current gender identity: Female Female Reproductive History: Date of last menstrual period: 10/24/20 Spontaneous abortions: No Physical Exam Const: COMMON NORMALS: no acute distress, patient oriented x3 and healthy appearing HENMT: COMMON NORMALS: normocephalic and atraumatic HEAD & SCALP: normocephalic and atraumatic Eye: COMMON NORMALS: Equal, round and reactive pupils present and EOMs intact bilaterally PUPIL: Yes Equal, round and reactive pupils present Neck/C-Spine: COMMON NORMALS: full ROM and supple Chest: COMMONS NORMALS: normal inspection of the chest and normal palpation of entire chest wall Resp: COMMON NORMALS: normal respiratory effort, No retractions, No use of accessory muscles and clear to auscultation bilaterally AUSCULTATION: clear to auscultation bilaterally Cardio: COMMON NORMALS: regular rate, regular rhythm and No murmurs present (Cardio) RATE: regular rate RHYTHM: regular rhythm GI: COMMON NORMALS: Normal to inspection, nondistended, normoactive bowel sounds present, Soft to palpation, non-tender and no masses PALPATION: Yes Soft to palpation Extremity: COMMON NORMALS: normal to inspection and full ROM Neuro: COMMON NORMALS: patient oriented x3, moves all extremities and no focal motor deficits Psych: COMMON NORMALS: mental status grossly normal, Normal thought process present and cooperative THOUGHT PROCESS: Normal thought process present Skin: COMMON NORMALS: no rashes or lesions noted and no wounds GENERAL SKIN EXAM: no rashes or lesions noted Course Vital Signs: Vital signs: Vital Signs Temperature 98.2 F 06/02/21 15:19 Pulse Rate 108 H 06/03/21 04:17 Respiratory Rate 16 06/03/21 04:17 Blood Pressure 136/80 06/03/21 04:17 Pulse Oximetry 94 06/03/21 04:17 MDM - Weakness MDM Narrative: Medical decision making narrative: Dalila presents with vomiting on generalized weakness she is well-appearing here blood work is all normal she feels improved after Zofran was able to tolerate p.o. She is stable for discharge we will get her home health eval she is to follow-up with PCP and return if worsening she understands agrees to plan. Lab Data: Labs: Lab Results 06/02/21 06/02/21 06/02/21 20:26 20:26 20:26 WBC 6.7 10^3/uL 10^3/ uL (4.0-10.0) RBC 4.63 10^6/uL 10^6 /uL (4.1-5.3) Hgb 13.7 g/dL g/dL (11.5-15.3) Hct 41.1 % % (37.0-47.0) MCV 88.8 fl fl (81-99) MCH 29.6 pg pg (28.0-34.0) MCHC 33.3 g/dL g/dL (30.0-36.0) RDW 13.2 % % (12.1-15.1) Plt Count 396 10^3/cmm 10^3 /cmm (130-400) MPV 9.4 fL fL (7.4-10.4) Neut % (Auto) 52.1 % % Lymph % (Auto) 31.4 % % [place] % (Auto) 12.2 % % Eos % (Auto) 3.2 % % Baso % (Auto) 0.5 % % Neut # (Auto) 3.48 10^3/uL 10^3 /uL (1.8-7.7) Lymph # (Auto) 2.1 10^3/uL 10^3/ uL (0.8-4.8) [place] # (Auto) 0.8 10^3/uL 10^3/ uL (0.2-0.9) Eos # (Auto) 0.2 10^3/uL 10^3/ uL (0.0-0.8) Baso # (Auto) 0.0 10^3/uL 10^3/ uL (0.0-0.1) Nucleated RBC % (a uto) 0 % % Nucleated RBCs # 0.0 /100WBC /100W BC Sodium Cancelled Potassium Cancelled Chloride Cancelled Carbon Dioxide Cancelled Anion Gap Cancelled BUN Cancelled Creatinine Cancelled GFR Calculation Cancelled Glucose Cancelled Calculated Osmolal ity Cancelled Lactic Acid 1.0 mmol/L mmol/L (0.5-2.2) Calcium Cancelled Total Bilirubin Cancelled AST Cancelled ALT Cancelled Alkaline Phosphata se Cancelled Creatine Kinase Cancelled Total Protein Cancelled Albumin Cancelled Globulin Cancelled Procalcitonin Cancelled Urine Color Urine Appearance Urine pH Ur Specific Gravit y Urine Protein Urine Glucose (UA) Urine Ketones Urine Blood Urine Nitrate Urine Bilirubin Urine Urobilinogen Ur Leukocyte Rosie ase 06/02/21 06/03/21 21:05 03:10 WBC RBC Hgb Hct MCV MCH MCHC RDW Plt Count MPV Neut % (Auto) Lymph % (Auto) [place] % (Auto) Eos % (Auto) Baso % (Auto) Neut # (Auto) Lymph # (Auto) [place] # (Auto) Eos # (Auto) Baso # (Auto) Nucleated RBC % (a uto) Nucleated RBCs # Sodium 137 mmol/L mmol/L (136-145) Potassium 3.3 mmol/L L mmol /L (3.5-5.1) Chloride 100 mmol/L mmol/L (98-107) Carbon Dioxide 24 mmol/L mmol/L (22-29) Anion Gap 16.3 (5-19) BUN 5 mg/dL L mg/dL (6-20) Creatinine 0.4 mg/dL L mg/dL (0.5-0.9) GFR Calculation 163.4 mL/min H mL /min (90-130) Glucose 146 mg/dL H mg/dL (65-115) Calculated Osmolal ity 284 mOsm/kg L mOs m/kg (285-295) Lactic Acid Calcium 9.9 mg/dL mg/dL (8.5-10.5) Total Bilirubin 0.4 mg/dL mg/dL (0.15-1.2) AST 16 U/L U/L (0-32) ALT 20 U/L U/L (0-33) Alkaline Phosphata se 115 IU/L H IU/L (35-105) Creatine Kinase 23 U/L L U/L (26-192) Total Protein 7.3 g/dL g/dL (6.6-8.7) Albumin 3.8 g/dL g/dL (3.5-5.2) Globulin 3.5 g/dL g/dL (1.3-4.6) Procalcitonin 0.08 ng/mL ng/mL (0-0.5) Urine Color Zoya (Yellow) Urine Appearance Clear (CLEAR) Urine pH 5 (5-7) Ur Specific Gravit y 1.025 (1.005-1.030) Urine Protein Neg (Negative) Urine Glucose (UA) Norm (Normal) Urine Ketones Negative (Negative) Urine Blood Neg (Negative) Urine Nitrate Negative (Negative) Urine Bilirubin 1+ H (Negative) Urine Urobilinogen Norm mg/dL mg/dL (Negative) Ur Leukocyte Rosie ase Negative (Negative) Imaging Data^: CXR: Attestation: I personally reviewed and interpreted this imaging study as follows: Radiologist's impression: [address] [place] [id number] XRay Report Signed Patient: Dalila Samuels Unit #: [id number] : 1960 Age/Sex: 61 / F ADM Date: 06/02/21 Loc: ER Room/Bed: Attending Dr: Ordering Provider/Ordering MD: Desiree Elizalde Date of Service: 06/02/21 Procedure(s): XR chest 1V portable [id number] Accession Number(s): [id number] Report Number: [id number] PROCEDURE INFORMATION: Exam: XR Chest Exam date and time: 06/02/2021 5:00 PM Age: 61 years old Clinical indication: Dyspnea; Additional info: Weakness TECHNIQUE: Imaging protocol: XR of the chest. Views: 1 view. COMPARISON: CR XR chest 1V portable [id number] 05/22/2021 5:31 AM FINDINGS: Lungs: Background emphysema. Fine reticular interstitial lung changes are noted, however less pronounced than prior imaging. No focal airspace consolidation. Pleural spaces: Unremarkable. No pleural effusion. No pneumothorax. Heart/Mediastinum: Unremarkable. No cardiomegaly. Bones/joints: Demineralized bones. Arthritis changes in both shoulders worse on right than left. Nonspecific erosive degenerative joint disease of the right shoulder noted in particular. XR/XR chest 1V portable [id number] IMPRESSION: 1. Background nonspecific interstitial lung changes. 2. No focal pneumonia. Radiation Dose CTDIVOL = (mGy): DLP = (mGy-cm) Dictated By: Bruce Spencer Signed By: Bruce Spencer Signed Date/Time: 06/02/21 1838 DD/ 1700 EKG Data^: EKG 1: Attestation: I personally reviewed and interpreted this EKG as follows: EKG interpretation date: 06/03/21 EKG interpretation time: 01:23 Interpretation: sinus tach hr [address] or t wave abnormalities qrs 98 qtc 441 Discharge Plan Discharge Patient Disposition: Home Clinical Impression: Weakness Vomiting Qualifiers: Vomiting type: unspecified Vomiting Intractability: non-intractable Nausea presence: with nausea Qualified Code(s): R11.2 - Nausea with vomiting, unspecified Condition: Stable Prescriptions: New ondansetron 4 mg tablet,disintegrating 4 mg PO Q6H PRN (Reason: nausea and vomiting) Qty: 14 RF: 0 No Action promethazine 12.5 mg tablet 12.5 mg PO DAILY PRN (Reason: nausea and vomiting) 30 Days Qty: 30 RF: 5 budesonide 0.5 mg/2 mL suspension for nebulization 0.5 mg inhalation BID Qty: 60 RF: 5 albuterol sulfate 2.5 mg /3 mL (0.083 %) solution for nebulization 2.5 mg inhalation Q4H PRN (Reason: shortness of breath or wheezing) Qty: 180 RF: 5 albuterol sulfate 90 mcg/actuation HFA aerosol inhaler 2 puff INHALATION Q6H PRN (Reason: shortness of breath or wheezing) 30 Days Qty: 18 RF: 5 One Daily 27 mg iron- 800 mcg tablet 1 tab PO DAILY 90 Days Qty: 90 RF: 1 epinephrine [EpiPen 2-Reji] 0.3 mg/0.3 mL auto-injector 0.3 mg IM Q15M PRN (Reason: anaphylaxis) Qty: 2 RF: 0 miscellaneous medical supply Misc See Rx Instructions miscellaneous .COMPLEX Qty: 1 RF: 0 pregabalin 200 mg capsule 200 mg PO TID 30 Days Qty: 90 RF: 2 famotidine 20 mg tablet 20 mg PO BID 30 Days Qty: 60 RF: 2 Anoro Ellipta 62.5-25 mcg/actuation blister with device 1 inh inhalation DAILY 30 Days Qty: 60 RF: 3 dextromethorphan polistirex 30 mg/5 mL suspension,extended rel 12 hr 10 ml PO Q12H PRN (Reason: cough) Qty: 89 RF: 0 miscellaneous medical supply Misc See Rx Instructions miscellaneous .COMPLEX Qty: 1 RF: 0 bupropion HCl 150 mg tablet sustained-release 12 hr 150 mg PO BID RF: 0 lamotrigine 100 mg tablet 150 mg PO QAM RF: 0 potassium chloride 20 mEq tablet,ER particles/crystals 20 meq PO DAILY Qty: 14 RF: 0 fluoxetine 40 mg capsule 40 mg PO QAM Qty: 0 RF: 0 quetiapine 300 mg tablet 300 mg PO BEDTIME Qty: 0 RF: 0 furosemide 20 mg tablet 20 mg PO QAM PRN (Reason: Edema) Qty: 0 RF: 0 Miralax 17 gram powder in packet 17 g PO DAILY PRN (Reason: constipation) Qty: 30 RF: 0 Discharge Orders: Discharge ED (Routine); Ordered 06/03/21 Ordered By: Odilon Trejo Discharge Diet: Advance as tolerated Discharge Activity: Resume usual activity Patient Instructions: Acute Nausea and Vomiting (ED) Coding Level of Care Code ED [employer] 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
[2021-06-03] MEDS: sodium chloride 0.9% 1,000 ML 999 ML IV (00:35)
[2021-06-03] MEDS: ondansetron 2 mg/ML SDV 2 mL 4 MG IVP (00:35)
[2021-06-03 00:36] VITALS: RESP 16; O2SAT 100
[2021-06-03] MEDS: HYDROmorphone 1 mg/mL INJ 1 mL 0.5 MG IVP (00:36)
[2021-06-03 00:40] VITALS: BP 148/71; PULSE 116; RESP 18; O2SAT 94
[2021-06-03 04:00] LABS: Add Urine Microscopic? NO; Charge for UA Resulting for Rev
[2021-06-03 04:02] LABS: Bilirubin Urine 1+ (Negative); Blood Urine Neg (Negative); Glucose Urine UA Norm (Normal); Ketones Urine Negative (Negative); Leukocyte Esterase Urine Negative (Negative); Nitrate Urine Negative (Negative); Protein Urine Neg (Negative); Specific Gravity, Urine 1.025 (1.005-1.030); Urine Appearance Clear (CLEAR); Urine Color Amber (Yellow); Urobilinogen Urine Norm (Negative); pH Urine 5 (5-7)
[2021-06-03 04:17] VITALS: BP 136/80; PULSE 108; RESP 16; O2SAT 94
--- NOTE | 2021-06-03 14:06 | DCPLANNER ---
yard manager had message to speak with patient about home health. yard manager spoke with patients daughter, who just moved to the area. Patients daughter stated that she is not for sure if patient has a primary care physician or not, but will talk with patient and find out. Patients daughter stated that patient may want to go to a correction, but the daughter stated that she would speak with patient about what she wants to do. Patients daughter stated that she would call case repairer back and update the case repairer on what patients wants.
== END 2021-06-03 04:50 | disposition home or self-care (01) ==
PROVIDERS: Physician Assistant; Emergency Provider Emergency Medicine
DX: R11.2 Nausea with vomiting, unspecified (principal); R53.1 Weakness; Z79.899 Other long term (current) drug therapy; F17.210 Nicotine dependence, cigarettes, uncomplicated; J44.9 Chronic obstructive pulmonary disease, unspecified; B18.2 Chronic viral hepatitis C; F11.21 Opioid dependence, in remission; I73.9 Peripheral vascular disease, unspecified; I27.20 Pulmonary hypertension, unspecified
CPT/HCPCS: 36415; 71045; 80053; 81003; 82550; 83605; 84145; 85025; 93005; 96361; 96374; 96375; 99284; J1170; J2405; J7030

== ENCOUNTER 2021-06-10 21:22 | Emergency (ER) | payer MEDICAID, SELFPAY ==
[2021-06-10 21:25] VITALS: BP 138/97; PULSE 111; RESP 18; TEMP 36.8; O2SAT 94; BMI 32.6
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
[2021-06-10 21:49] VITALS: BP 146/83; PULSE 108; RESP 23; O2SAT 99
--- NOTE | 2021-06-10 21:53 | ECG_ITS ---
[facility] Test Date: 2021-06-10 Pat Name: Dalila Samuels Department: Room: Gender: Female Miller Head Assistant Wet Process: : 1960 Requested By: Philip Miguel Order Number: [id number] Danae MD: Diamond rBewer M.D. Measurements Intervals [place] Rate: 111 P: 53 NV: 164 QRS: 35 QRSD: 93 T: 45 QT: 344 QTc: 469 Interpretive Statements SINUS TACHYCARDIA LOW QRS VOLTAGE IN PRECORDIAL LEADS [QRS DEFLECTION < 1.0 mV IN CHEST LEADS] ABNORMAL RHYTHM ECG Compared to ECG 06/03/2021 01:23:05 Low QRS voltage now present Electronically Signed On 06-11-2021 20:40:13 FEEDER CATCHER by Diamond Brewer M.D. [id number]
--- NOTE | 2021-06-10 21:53 | CTR_ITS ---
PROCEDURE INFORMATION: Exam: CT Head Without Contrast Exam date and time: 06/10/2021 9:53 PM Age: 61 years old Clinical indication: Altered mental status/memory loss; Patient HX: Patient states she is experiencing hallucinations. Admits to meth use earlier today. ; Additional info: AMS TECHNIQUE: Imaging protocol: Computed tomography of the head without contrast. Radiation optimization: All CT scans at this facility use at least one of these dose optimization techniques: automated exposure control; mA and/or kV adjustment per patient size (includes targeted exams where dose is matched to clinical indication); or iterative reconstruction. COMPARISON: CT Brain 05/22/2021 10:27 AM, MR Head wo con* [id number] 05/23/2021 9:43 AM RADIATION DOSE METRICS: Total DLP (mGy-cm): 645.4 FINDINGS: Brain: As before, there is a small 6 mm rounded area of high attenuation in the medial left temporal region, probably not significantly changed from the recent CT. From this single exam, it is not possible to distinguish calcification from small area of hemorrhage. However, the recent MRI demonstrates findings most consistent with a chronic cavernoma/cavernous angioma. Therefore, it is unlikely this represents acute hemorrhage. No definite acute intracranial hemorrhage. No significant mass effect or midline shift. There is decreased attenuation in the periventricular white matter, likely from microvascular disease. No definite acute infarct by CT. MRI could be more sensitive/specific for detection, as clinically directed. Cerebral ventricles: Ventricle size is normal for age. Paranasal sinuses: Included paranasal sinuses are essentially clear. Mastoid air cells: No significant acute finding. Vasculature: Mild vascular calcifications in the internal carotid arteries. Bones/joints: No definite acute skull fracture. CT/CT head wo con* [id number] IMPRESSION: 1. No definite acute intracranial hemorrhage or significant mass effect. 2. Stable small high attenuation area in the medial left temporal lobe, see above discussion. 3. Changes of microvascular disease. 4. No definite acute infarct by CT, see above. 5. Other findings discussed above. Radiation Dose CTDIVOL = (mGy): DLP = 645.4 (mGy-cm)
[2021-06-10 23:41] LABS: Basophils % 0.4 %; Eosinophils # 0.1 10^3/uL (0.0-0.8); Eosinophils % 1.8 %; Hematocrit 36.3 % (37.0-47.0); Hemoglobin 11.5 g/dL (11.5-15.3); Lymphocytes # 2.2 10^3/uL (0.8-4.8); Lymphocytes % 31.8 %; Mean Corpuscular HGB Conc 31.7 g/dL (30.0-36.0); Mean Corpuscular Hemoglobin 28.9 pg (28.0-34.0); Mean Corpuscular Volume 91.2 fl (81-99); Mean Platelet Volume 8.9 fL (7.4-10.4); Monocytes # 0.7 10^3/uL (0.2-0.9); Monocytes % 10.2 %; Neutrophils # 3.76 10^3/uL (1.8-7.7); Neutrophils % 55.4 %; Nucleated Red Blood Cells % 0 %; Platelet Count 290 10^3/cmm (130-400); Red Blood Count 3.98 10^6/uL (4.1-5.3); Red Cell Distribution Width 13.2 % (12.1-15.1); White Blood Count 6.8 10^3/uL (4.0-10.0)
[2021-06-11 00:07] VITALS: BP 112/70; PULSE 114; RESP 19; O2SAT 92
[2021-06-11 00:09] LABS: Alanine Aminotransferase 14 U/L (0-33); Albumin Level 3.1 g/dL (3.5-5.2); Alkaline Phosphatase 116 IU/L (35-105); Anion Gap 13.1 (5-19); Aspartate Amino Transferase 13 U/L (0-32); Blood Urea Nitrogen 4 mg/dL (6-20); Calcium 8.7 mg/dL (8.5-10.5); Carbon Dioxide 24 mmol/L (22-29); Chloride 103 mmol/L (98-107); Globulin 2.8 g/dL (1.3-4.6); Glomerular Filtration Rate 227.7 mL/min (90-130); Glucose 122 mg/dL (65-115); Osmolality Calculated 282 mOsm/kg (285-295); Potassium 3.1 mmol/L (3.5-5.1); Sodium 137 mmol/L (136-145); Thyroid Stimulating Hormone 0.45 uIU/mL (0.27-4.20); Total Bilirubin 0.4 mg/dL (0.15-1.2); Total Protein 5.9 g/dL (6.6-8.7)
[2021-06-11] MEDS: ketorolac 30 mg/mL INJ 15 MG IVP (00:10)
[2021-06-11 00:11] LABS: Acetaminophen < 5.0 ug/mL (10-30); Alcohol Level < 10 mg/dL (0-10); Salicylate < 0.3 mg/dL (3-10)
[2021-06-11] MEDS: LORazepam 2 mg/mL INJ 1 mL 1 MG IV (00:11)
[2021-06-11] MEDS: sodium chloride 0.9% 500 ML 999 ML IV (00:12)
[2021-06-11 01:21] VITALS: BP 134/73; PULSE 113; O2SAT 90
--- NOTE | 2021-06-11 09:59 | DCPLANNER ---
veterinary practice manager had message to speak with patient about getting home health service. veterinary practice manager called phone number in chart, , was patients daughter, who stated that pillowcase folder would need to call and speak with patient about home health. Patient has medicaid, so patient can not have home health. Patients daughter gave pillowcase folder a different number [phone], this number is out of service. veterinary practice manager was unable to speak with patient at this time.
== END 2021-06-11 01:31 | disposition home or self-care (01) ==
PROVIDERS: Emergency Medicine; Emergency Provider Emergency Medicine; PCP Family Medicine
DX: R53.1 Weakness (principal); F19.10 Other psychoactive substance abuse, uncomplicated; J44.9 Chronic obstructive pulmonary disease, unspecified; K21.9 Gastro-esophageal reflux disease without esophagitis; F41.9 Anxiety disorder, unspecified; B19.20 Unspecified viral hepatitis C without hepatic coma; F25.0 Schizoaffective disorder, bipolar type; F17.210 Nicotine dependence, cigarettes, uncomplicated
CPT/HCPCS: 36415; 70450; 80053; 80307; 84443; 85025; 93005; 96374; 96375; 99283; J1885; J2060; J7040

== ENCOUNTER 2021-06-16 16:20 | Emergency (ER) | payer MEDICAID, SELFPAY ==
[2021-06-16 17:34] VITALS: BP 152/91; PULSE 113; RESP 18; TEMP 36.7; O2SAT 97; BMI 33.0
--- NOTE | 2021-06-16 17:59 | ECG_ITS ---
[facility] Test Date: 2021-06-16 Pat Name: Dalila Samuels Department: Room: Gender: Female Service Associate: : 1960 Requested By: Jasen Khan Order Number: [id number] Danae MD: Megan Todd M.D. Measurements Intervals [place] Rate: 90 P: 148 DE: 151 QRS: -10 QRSD: 100 T: 73 QT: 372 QTc: 457 Interpretive Statements ECTOPIC ATRIAL RHYTHM POSSIBLE LEFT ATRIAL ENLARGEMENT [-0.1mV P-WAVE IN V1/V2] LOW QRS VOLTAGE IN PRECORDIAL LEADS [QRS DEFLECTION < 1.0 mV IN CHEST LEADS] Compared to ECG 06/10/2021 23:31:23 Ectopic atrial rhythm now present Sinus tachycardia no longer present Electronically Signed On 06-17-2021 12:08:47 COUNTY ADMINISTRATOR by Megan Tdod M.D. [id number]
--- NOTE | 2021-06-16 18:03 | ED_ITS ---
Documented by User: Jasen Galeano DO 06/18/21 15:07 HPI - Abdominal Pain General: Chief Complaint: Abdominal Pain Stated Complaint: N/V SEEN AT [facility] FOR SAME GIVEN SCRIPTS Time Seen by Provider: 06/16/21 17:55 History of Present Illness: HPI narrative: 61-year-old female presents emergency room planing nausea and vomiting. She states she was here earlier this month. Reviewing her notes she was here on the June 03 and June 10. In May of this year she was admitted to our facility with respiratory failure and acute metabolic encephalopathy. She states she was at [facility] earlier today for nausea vomiting. She was given prescription prescriptions she has not gotten any of them. She has history of significant COPD although she is not on any oxygen. She complaining mostly of right-sided abdominal pain she did have a CT done at [facility]. She has previously had previous cholecystectomy MD elicited complaint: abdominal pain Onset (ago): week(s) Location: RUQ and RLQ Quality: cramping Exacerbating factors: nothing Relieving factors: nothing Associated Symptoms: Reports GI cramping, nausea, poor appetite and vomiting; Denies anorexia, belching, bloating, change in bowel habits, change in stool character, chills, coffee ground emesis, constipation, diarrhea, dyspepsia, dysuria, excessive flatus, fever(s), heartburn, hematochezia, hematuria, hematemesis, fecal incontinence, loose stools, melena and syncope Related Data: Date of Last Menstrual Period: 10/24/20 Review of Systems Const: Denies: fever(s) or chills ENMT: Denies: throat pain, ear or mastoid pain, nasal discharge or nasal congestion Card: Denies: syncope Resp: Denies: dyspnea, productive cough or non-productive cough GI: Reports: nausea, vomiting and GI cramping; Denies: hematemesis, coffee ground emesis, heartburn, diarrhea, constipation, bloating, belching, excessive flatus, fecal incontinence, change in bowel habits, change in stool character, hematochezia or melena : Denies: dysuria or hematuria Skin/Breast: Denies: rash or pruritus PFS ED PFSH: Medical History Amphetamine addiction Anxiety Aspiration of foreign body in respiratory tract Borderline personality disorder Chronic idiopathic pain syndrome Chronic pain syndrome COPD (chronic obstructive pulmonary disease) DDD (degenerative disc disease), cervical DJD (degenerative joint disease), lumbar GERD (gastroesophageal reflux disease) Hepatitis C, chronic History of intravenous drug abuse Interstitial lung disease Nicotine dependence, cigarettes, with other nicotine-induced disorders Opioid dependence, in remission Other stimulant dependence, in remission Partial small bowel obstruction Psychiatric care Pulmonary hypertension PVD (peripheral vascular disease) with claudication Respiratory failure with hypoxia Schizoaffective disorder, bipolar type Surgical History H/O tubal ligation Hx of BKA S/P cholecystectomy S/P tonsillectomy Family History Other CAD (coronary artery disease) Diabetes Lung disease Stroke Social History Smoking and tobacco status: current some day smoker cigarettes Years cigarettes smoked: 40 [ Other cigarette details: Hx of 1 PPD x 40 Years ] Quit status (tobacco): considering quitting Second hand smoke exposure: Yes Smoking risk assessment/counseling performed?: Yes Alcohol intake: former Counseling given: No Counseling given: No Lives independently: Yes Household members: none Marital status: Current occupational status: disabled History of recent travel: No Current gender identity: Female Female Reproductive History: Date of last menstrual period: 10/24/20 Spontaneous abortions: No Physical Exam Const: COMMON NORMALS: no acute distress GENERAL APPEARANCE: cooperative and comfortable ORIENTATION/CONSCIOUSNESS: Yes awake, Yes oriented to person, Yes oriented to place and Yes oriented to time HENMT: COMMON NORMALS: normocephalic, atraumatic and hearing grossly normal bilaterally HEAD & SCALP: normocephalic and atraumatic Neck/C-Spine: COMMON NORMALS: no JVD Lymph: LYMPHATIC: no lymphadenopathy noted and no lymphedema noted Resp: COMMON NORMALS: normal respiratory effort, No retractions, No use of accessory muscles and clear to auscultation bilaterally AUSCULTATION: clear to auscultation bilaterally Cardio: COMMON NORMALS: no JVD, regular rate, regular rhythm and No murmurs present (Cardio) RATE: regular rate RHYTHM: regular rhythm GI: COMMON NORMALS: No hepatosplenomegaly present AUSCULTATION: Yes normoactive bowel sounds PALPATION: Yes Tenderness to palpation present (GI) (Right side of abdomen), No Guarding due to palpation present (GI) and Yes No hepatosplenomegaly present Extremity: COMMON NORMALS: normal to inspection, capillary refill normal, no clubbing, cyanosis or edema, no calf tenderness and no pedal edema Neuro: SENSORIUM/ORIENTATION: Yes oriented to person, Yes oriented to place and Yes oriented to time Skin: COMMON NORMALS: no rashes or lesions noted GENERAL SKIN EXAM: no rashes or lesions noted Course Vital Signs: Vital signs: Vital Signs Temperature 98.1 F 06/16/21 17:34 Pulse Rate 106 H 06/16/21 23:30 Respiratory Rate 17 06/16/21 23:30 Blood Pressure 132/95 06/16/21 23:30 Pulse Oximetry 93 06/16/21 23:30 MDM - Abdominal Pain MDM Narrative: Medical decision making narrative: Care turned over to Dr. Presley at change of shift see his note for final diagnosis and disposition Lab Data: Labs: Lab Results 06/16/21 06/16/21 06/16/21 18:47 18:47 21:42 WBC 9.6 10^3/uL 10^3/ uL (4.0-10.0) RBC 4.32 10^6/uL 10^6 /uL (4.1-5.3) Hgb 12.5 g/dL g/dL (11.5-15.3) Hct 36.9 % L % (37.0-47.0) MCV 85.4 fl fl (81-99) MCH 28.9 pg pg (28.0-34.0) MCHC 33.9 g/dL g/dL (30.0-36.0) RDW 12.9 % % (12.1-15.1) Plt Count 371 10^3/cmm 10^3 /cmm (130-400) MPV 8.5 fL fL (7.4-10.4) Neut % (Auto) 66.3 % % Lymph % (Auto) 23.7 % % Emanuel % (Auto) 8.6 % % Eos % (Auto) 0.6 % % Baso % (Auto) 0.4 % % Neut # (Auto) 6.39 10^3/uL 10^3 /uL (1.8-7.7) Lymph # (Auto) 2.3 10^3/uL 10^3/ uL (0.8-4.8) Emanuel # (Auto) 0.8 10^3/uL 10^3/ uL (0.2-0.9) Eos # (Auto) 0.1 10^3/uL 10^3/ uL (0.0-0.8) Baso # (Auto) 0.0 10^3/uL 10^3/ uL (0.0-0.1) Nucleated RBC % (a uto) 0 % % Nucleated RBCs # 0.0 /100WBC /100W BC Sodium 139 mmol/L mmol/L (136-145) Potassium 2.6 mmol/L L* mmo l/L (3.5-5.1) Chloride 100 mmol/L mmol/L (98-107) Carbon Dioxide 26 mmol/L mmol/L (22-29) Anion Gap 15.6 (5-19) BUN 2 mg/dL L mg/dL (6-20) Creatinine 0.5 mg/dL mg/dL (0.5-0.9) GFR Calculation 126.3 mL/min mL/m in (90-130) Glucose 101 mg/dL mg/dL (65-115) Calculated Osmolal ity 284 mOsm/kg L mOs m/kg (285-295) Calcium 8.6 mg/dL mg/dL (8.5-10.5) Total Bilirubin 0.5 mg/dL mg/dL (0.15-1.2) AST 14 U/L U/L (0-32) ALT 14 U/L U/L (0-33) Alkaline Phosphata se 134 IU/L H IU/L (35-105) Total Protein 6.5 g/dL L g/dL (6.6-8.7) Albumin 3.4 g/dL L g/dL (3.5-5.2) Globulin 3.1 g/dL g/dL (1.3-4.6) Lipase 30 U/L U/L (13-60) Urine Color Yellow (Yellow) Urine Appearance Clear (CLEAR) Urine pH 8 H (5-7) Ur Specific Gravit y 1.010 (1.005-1.030) Urine Protein Neg (Negative) Urine Glucose (UA) Norm (Normal) Urine Ketones Negative (Negative) Urine Blood Neg (Negative) Urine Nitrate Negative (Negative) Urine Bilirubin Neg (Negative) Prot Sulfosalicyli c Acd Negative (Negative) Urine Urobilinogen Norm mg/dL mg/dL (Negative) Ur Leukocyte Rosie ase Negative (Negative) Nasal/Oral COVID-1 9 PCR 06/16/21 22:38 WBC RBC Hgb Hct MCV MCH MCHC RDW Plt Count MPV Neut % (Auto) Lymph % (Auto) Emanuel % (Auto) Eos % (Auto) Baso % (Auto) Neut # (Auto) Lymph # (Auto) Emanuel # (Auto) Eos # (Auto) Baso # (Auto) Nucleated RBC % (a uto) Nucleated RBCs # Sodium Potassium Chloride Carbon Dioxide Anion Gap BUN Creatinine GFR Calculation Glucose Calculated Osmolal ity Calcium Total Bilirubin AST ALT Alkaline Phosphata se Total Protein Albumin Globulin Lipase Urine Color Urine Appearance Urine pH Ur Specific Gravit y Urine Protein Urine Glucose (UA) Urine Ketones Urine Blood Urine Nitrate Urine Bilirubin Prot Sulfosalicyli c Acd Urine Urobilinogen Ur Leukocyte Rosie ase Nasal/Oral COVID-1 9 PCR Not detected Discharge Plan Discharge Patient Disposition: Home Clinical Impression: Acute hypokalemia, Nausea & vomiting, Diarrhea Condition: Stable Prescriptions: New Pepcid 20 mg tablet 20 mg PO BID PRN (Reason: abdominal pain) 10 Days Qty: 20 RF: 0 Maalox Advanced 1,000-60 mg tablet,chewable 1 tab PO TID PRN (Reason: abdominal pain) 7 Days Qty: 21 RF: 0 No Action promethazine 12.5 mg tablet 12.5 mg PO DAILY PRN (Reason: nausea and vomiting) 30 Days Qty: 30 RF: 5 budesonide 0.5 mg/2 mL suspension for nebulization 0.5 mg inhalation BID Qty: 60 RF: 5 albuterol sulfate 2.5 mg /3 mL (0.083 %) solution for nebulization 2.5 mg inhalation Q4H PRN (Reason: shortness of breath or wheezing) Qty: 180 RF: 5 albuterol sulfate 90 mcg/actuation HFA aerosol inhaler 2 puff INHALATION Q6H PRN (Reason: shortness of breath or wheezing) 30 Days Qty: 18 RF: 5 One Daily 27 mg iron- 800 mcg tablet 1 tab PO DAILY 90 Days Qty: 90 RF: 1 epinephrine [EpiPen 2-Reji] 0.3 mg/0.3 mL auto-injector 0.3 mg IM Q15M PRN (Reason: anaphylaxis) Qty: 2 RF: 0 miscellaneous medical supply Misc See Rx Instructions miscellaneous .COMPLEX Qty: 1 RF: 0 pregabalin 200 mg capsule 200 mg PO TID 30 Days Qty: 90 RF: 2 famotidine 20 mg tablet 20 mg PO BID 30 Days Qty: 60 RF: 2 Anoro Ellipta 62.5-25 mcg/actuation blister with device 1 inh inhalation DAILY 30 Days Qty: 60 RF: 3 dextromethorphan polistirex 30 mg/5 mL suspension,extended rel 12 hr 10 ml PO Q12H PRN (Reason: cough) Qty: 89 RF: 0 miscellaneous medical supply Misc See Rx Instructions miscellaneous .COMPLEX Qty: 1 RF: 0 bupropion HCl 150 mg tablet sustained-release 12 hr 150 mg PO BID RF: 0 lamotrigine 100 mg tablet 150 mg PO QAM RF: 0 potassium chloride 20 mEq tablet,ER particles/crystals 20 meq PO DAILY Qty: 14 RF: 0 fluoxetine 40 mg capsule 40 mg PO QAM Qty: 0 RF: 0 quetiapine 300 mg tablet 300 mg PO BEDTIME Qty: 0 RF: 0 furosemide 20 mg tablet 20 mg PO QAM PRN (Reason: Edema) Qty: 0 RF: 0 polyethylene glycol 3350 [Miralax] 17 gram powder in packet 17 g PO DAILY PRN (Reason: constipation) Qty: 30 RF: 0 ondansetron 4 mg tablet,disintegrating 4 mg PO Q6H PRN (Reason: nausea and vomiting) Qty: 14 RF: 0 Discharge Orders: Discharge ED (Routine); Ordered 06/16/21 Ordered By: Alejandro Presley Referrals: Nicole Louis MD [Primary Care Provider] - Discharge Diet: Advance as tolerated Discharge Activity: Resume usual activity Patient Instructions: Hypokalemia (ED) Activity Restrictions/Additional Instructions: Take your potassium tablets for the next 3 days. Please follow-up with your [facility] care provider for evaluation of your low potassium. Come back to the emergency you have any new or concerning complaints. Take your medicine as needed for your belly pain. Come back if you have any fever/chills, worsening pain, inability to void, or any new concerning complaints. Coding Level of Care Code ED Shop Girl for Chg Fwd Exam Comprehensive Documented by User: Alejandro Presley MD 06/21/21 23:32 HPI - Abdominal Pain General: Chief Complaint: Abdominal Pain Stated Complaint: N/V SEEN AT [facility] FOR SAME GIVEN SCRIPTS Time Seen by Provider: 06/16/21 17:55 PFSH ED PFSH: Medical History Amphetamine addiction Anxiety Aspiration of foreign body in respiratory tract Borderline personality disorder Chronic idiopathic pain syndrome Chronic pain syndrome COPD (chronic obstructive pulmonary disease) DDD (degenerative disc disease), cervical DJD (degenerative joint disease), lumbar GERD (gastroesophageal reflux disease) Hepatitis C, chronic History of intravenous drug abuse Interstitial lung disease Nicotine dependence, cigarettes, with other nicotine-induced disorders Opioid dependence, in remission Other stimulant dependence, in remission Partial small bowel obstruction Psychiatric care Pulmonary hypertension PVD (peripheral vascular disease) with claudication Respiratory failure with hypoxia Schizoaffective disorder, bipolar type Surgical History H/O tubal ligation Hx of BKA S/P cholecystectomy S/P tonsillectomy Family History Other CAD (coronary artery disease) Diabetes Lung disease Stroke Social History Smoking and tobacco status: current some day smoker cigarettes Years cigarettes smoked: 40 [ Other cigarette details: Hx of 1 PPD x 40 Years ] Quit status (tobacco): considering quitting Second hand smoke exposure: Yes Smoking risk assessment/counseling performed?: Yes Alcohol intake: former Counseling given: No Counseling given: No Lives independently: Yes Household members: none Marital status: Current occupational status: disabled History of recent travel: No Current gender identity: Female Course Vital Signs: Vital signs: Vital Signs Temperature 98.1 F 06/16/21 17:34 Pulse Rate 106 H 06/16/21 23:30 Respiratory Rate 17 06/16/21 23:30 Blood Pressure 132/95 06/16/21 23:30 Pulse Oximetry 93 06/16/21 23:30 MDM - Abdominal Pain MDM Narrative: Medical decision making narrative: 61-year-old female with a history of prior small bowel function presenting to the emergency room with nausea vomiting diarrhea. Patient states that she was seen and evaluated earlier today at [facility]. Work-up today including white count within normal limit. Patient is noted to have potassium of 2.6. Patient chronically is hypokalemic. However this is a drop from previous visit on 06/11/2021. Patient received 10 mEq IV potassium, 2 tablets of 40 mEq p.o. 2 g of magnesium sulfate. KUB is negative for any signs of small bowel torsion. Bedside ultrasound did not show any signs of SBO, hydronephrosis, aortic aneurysm/dissection, or appendcitis. Patient tolerated p.o. in the emergency after trial GI cocktail. Given persistent symptoms, I suspect the patient's hypokalemia may be related to diarrhea. Given patient follow-up with Dr. Welch for outpatient GI followup for evaluation fo possible irritable bowel disease or chronic abdominal pain. No suspicion for ACS at this time as pain is not angina equivalent, exertional, or associated with shortness of breath. Rx potassium chloride BID x 3 days, maalox, pepcid, and tylenol PRN abdominal pain, zofran ODT prn nausea/vomiting Prior to discharge, patient informs me that she has no place to go and she can take her results. Attempted to reach the placement: However at this time, they said that there) patient is in contact with Norma our case consultant for placement. She tells me that she has cockroaches at home, cannot close a door, is concerned told at home. Have discussed case with patient's daughter Laurie at 10:42 PM. In addition, patient tells me that she cannot take care of her mother. There is no other contact right now currently. I have offered patient stay in the emergency room waiting room with plans for discharge in the AM. Patient agrees with plan. Disposition: Discharge. Patient counseled regarding diagnostic impression, treatment plan. Patient given ED strict return precautions to return for continuation, worsening, or development of new symptoms. Instructed to f/u w/ PCP regarding symptoms today. Patient verbalized understanding. Lab Data: Labs: Lab Results 06/16/21 06/16/21 06/16/21 18:47 18:47 21:42 WBC 9.6 10^3/uL 10^3/ uL (4.0-10.0) RBC 4.32 10^6/uL 10^6 /uL (4.1-5.3) Hgb 12.5 g/dL g/dL (11.5-15.3) Hct 36.9 % L % (37.0-47.0) MCV 85.4 fl fl (81-99) MCH 28.9 pg pg (28.0-34.0) MCHC 33.9 g/dL g/dL (30.0-36.0) RDW 12.9 % % (12.1-15.1) Plt Count 371 10^3/cmm 10^3 /cmm (130-400) MPV 8.5 fL fL (7.4-10.4) Neut % (Auto) 66.3 % % Lymph % (Auto) 23.7 % % Emanuel % (Auto) 8.6 % % Eos % (Auto) 0.6 % % Baso % (Auto) 0.4 % % Neut # (Auto) 6.39 10^3/uL 10^3 /uL (1.8-7.7) Lymph # (Auto) 2.3 10^3/uL 10^3/ uL (0.8-4.8) Emanuel # (Auto) 0.8 10^3/uL 10^3/ uL (0.2-0.9) Eos # (Auto) 0.1 10^3/uL 10^3/ uL (0.0-0.8) Baso # (Auto) 0.0 10^3/uL 10^3/ uL (0.0-0.1) Nucleated RBC % (a uto) 0 % % Nucleated RBCs # 0.0 /100WBC /100W BC Sodium 139 mmol/L mmol/L (136-145) Potassium 2.6 mmol/L L* mmo l/L (3.5-5.1) Chloride 100 mmol/L mmol/L (98-107) Carbon Dioxide 26 mmol/L mmol/L (22-29) Anion Gap 15.6 (5-19) BUN 2 mg/dL L mg/dL (6-20) Creatinine 0.5 mg/dL mg/dL (0.5-0.9) GFR Calculation 126.3 mL/min mL/m in (90-130) Glucose 101 mg/dL mg/dL (65-115) Calculated Osmolal ity 284 mOsm/kg L mOs m/kg (285-295) Calcium 8.6 mg/dL mg/dL (8.5-10.5) Total Bilirubin 0.5 mg/dL mg/dL (0.15-1.2) AST 14 U/L U/L (0-32) ALT 14 U/L U/L (0-33) Alkaline Phosphata se 134 IU/L H IU/L (35-105) Total Protein 6.5 g/dL L g/dL (6.6-8.7) Albumin 3.4 g/dL L g/dL (3.5-5.2) Globulin 3.1 g/dL g/dL (1.3-4.6) Lipase 30 U/L U/L (13-60) Urine Color Yellow (Yellow) Urine Appearance Clear (CLEAR) Urine pH 8 H (5-7) Ur Specific Gravit y 1.010 (1.005-1.030) Urine Protein Neg (Negative) Urine Glucose (UA) Norm (Normal) Urine Ketones Negative (Negative) Urine Blood Neg (Negative) Urine Nitrate Negative (Negative) Urine Bilirubin Neg (Negative) Prot Sulfosalicyli c Acd Negative (Negative) Urine Urobilinogen Norm mg/dL mg/dL (Negative) Ur Leukocyte Rosie ase Negative (Negative) Nasal/Oral COVID-1 9 PCR 06/16/21 22:38 WBC RBC Hgb Hct MCV MCH MCHC RDW Plt Count MPV Neut % (Auto) Lymph % (Auto) Emanuel % (Auto) Eos % (Auto) Baso % (Auto) Neut # (Auto) Lymph # (Auto) Emanuel # (Auto) Eos # (Auto) Baso # (Auto) Nucleated RBC % (a uto) Nucleated RBCs # Sodium Potassium Chloride Carbon Dioxide Anion Gap BUN Creatinine GFR Calculation Glucose Calculated Osmolal ity Calcium Total Bilirubin AST ALT Alkaline Phosphata se Total Protein Albumin Globulin Lipase Urine Color Urine Appearance Urine pH Ur Specific Gravit y Urine Protein Urine Glucose (UA) Urine Ketones Urine Blood Urine Nitrate Urine Bilirubin Prot Sulfosalicyli c Acd Urine Urobilinogen Ur Leukocyte Rosie ase Nasal/Oral COVID-1 9 PCR Not detected Imaging Data ^: Other Imaging: Radiologist's impression: [address] [address]NA[address] ReportSigned Patient: Dalila Samuels #: [id number]: 1960cct#:[id number]/Sex: 61 / FADM Date: 06/16/21Loc: ERRoom/Bed:Attending Dr: Ordering Provider/Ordering MD: Alejandro Presley MD Date of Service: 06/16/21 Procedure(s): XR KUB portable [id number] Accession Number(s): [id number] Report Number: [id number] PROCEDURE INFORMATION: Exam: XR Abdomen Exam date and time: 06/16/2021 8:07 PM Age: 61 years old Clinical indication: Abdominal pain; Additional info: Abd pain TECHNIQUE: Imaging protocol: XR of the abdomen. Views: Frontal supine view of the abdomen. 1 View. COMPARISON: CR XR KUB portable [id number] 05/21/2021 5:36 AM FINDINGS: Gastrointestinal tract: Diverticulosis of the colon. Scattered gas within nonobstructed small bowel. Intraperitoneal space: Multiple surgical clips in the right abdomen. No pneumoperitoneum visualized. Bones/joints: Scoliosis and degenerative changes of the lumbar spine. Left hip arthroplasty changes. XR/XR KUB portable [id number] IMPRESSION: 1. Nonspecific nonobstructive bowel gas pattern. Radiation Dose CTDIVOL = (mGy): DLP = (mGy-cm) Dictated By:Breanne Diaz By:Breanne Diaz Date/Time:06/16/21/ 06 Discharge Plan Discharge Patient Disposition: Home Clinical Impression: Acute hypokalemia, Nausea & vomiting, Diarrhea Condition: Stable Prescriptions: New Pepcid 20 mg tablet 20 mg PO BID PRN (Reason: abdominal pain) 10 Days Qty: 20 RF: 0 Maalox Advanced 1,000-60 mg tablet,chewable 1 tab PO TID PRN (Reason: abdominal pain) 7 Days Qty: 21 RF: 0 No Action promethazine 12.5 mg tablet 12.5 mg PO DAILY PRN (Reason: nausea and vomiting) 30 Days Qty: 30 RF: 5 budesonide 0.5 mg/2 mL suspension for nebulization 0.5 mg inhalation BID Qty: 60 RF: 5 albuterol sulfate 2.5 mg /3 mL (0.083 %) solution for nebulization 2.5 mg inhalation Q4H PRN (Reason: shortness of breath or wheezing) Qty: 180 RF: 5 albuterol sulfate 90 mcg/actuation HFA aerosol inhaler 2 puff INHALATION Q6H PRN (Reason: shortness of breath or wheezing) 30 Days Qty: 18 RF: 5 One Daily 27 mg iron- 800 mcg tablet 1 tab PO DAILY 90 Days Qty: 90 RF: 1 epinephrine [EpiPen 2-Reji] 0.3 mg/0.3 mL auto-injector 0.3 mg IM Q15M PRN (Reason: anaphylaxis) Qty: 2 RF: 0 miscellaneous medical supply Misc See Rx Instructions miscellaneous .COMPLEX Qty: 1 RF: 0 pregabalin 200 mg capsule 200 mg PO TID 30 Days Qty: 90 RF: 2 famotidine 20 mg tablet 20 mg PO BID 30 Days Qty: 60 RF: 2 Anoro Ellipta 62.5-25 mcg/actuation blister with device 1 inh inhalation DAILY 30 Days Qty: 60 RF: 3 dextromethorphan polistirex 30 mg/5 mL suspension,extended rel 12 hr 10 ml PO Q12H PRN (Reason: cough) Qty: 89 RF: 0 miscellaneous medical supply Misc See Rx Instructions miscellaneous .COMPLEX Qty: 1 RF: 0 bupropion HCl 150 mg tablet sustained-release 12 hr 150 mg PO BID RF: 0 lamotrigine 100 mg tablet 150 mg PO QAM RF: 0 potassium chloride 20 mEq tablet,ER particles/crystals 20 meq PO DAILY Qty: 14 RF: 0 fluoxetine 40 mg capsule 40 mg PO QAM Qty: 0 RF: 0 quetiapine 300 mg tablet 300 mg PO BEDTIME Qty: 0 RF: 0 furosemide 20 mg tablet 20 mg PO QAM PRN (Reason: Edema) Qty: 0 RF: 0 polyethylene glycol 3350 [Miralax] 17 gram powder in packet 17 g PO DAILY PRN (Reason: constipation) Qty: 30 RF: 0 ondansetron 4 mg tablet,disintegrating 4 mg PO Q6H PRN (Reason: nausea and vomiting) Qty: 14 RF: 0 Discharge Orders: Discharge ED (Routine); Ordered 06/16/21 Ordered By: Alejandro Presley Referrals: Nicole Louis MD [Primary Care Provider] - Discharge Diet: Advance as tolerated Discharge Activity: Resume usual activity Patient Instructions: Hypokalemia (ED) Activity Restrictions/Additional Instructions: Take your potassium tablets for the next 3 days. Please follow-up with your primary care provider for evaluation of your low potassium. Come back to the emergency you have any new or concerning complaints. Take your medicine as needed for your belly pain. Come back if you have any fever/chills, worsening pain, inability to void, or any new concerning complaints. Coding Level of Care Code ED Shop Girl for Dorcas Fwnghia Exam Comprehensive
[2021-06-16] MEDS: sodium chloride 0.9% 1,000 ML 999 ML IV ×2 (19:48→20:01)
[2021-06-16 19:58] LABS: Basophils % 0.4 %; Eosinophils # 0.1 10^3/uL (0.0-0.8); Eosinophils % 0.6 %; Hematocrit 36.9 % (37.0-47.0); Hemoglobin 12.5 g/dL (11.5-15.3); Lymphocytes # 2.3 10^3/uL (0.8-4.8); Lymphocytes % 23.7 %; Mean Corpuscular HGB Conc 33.9 g/dL (30.0-36.0); Mean Corpuscular Hemoglobin 28.9 pg (28.0-34.0); Mean Corpuscular Volume 85.4 fl (81-99); Mean Platelet Volume 8.5 fL (7.4-10.4); Monocytes # 0.8 10^3/uL (0.2-0.9); Monocytes % 8.6 %; Neutrophils # 6.39 10^3/uL (1.8-7.7); Neutrophils % 66.3 %; Nucleated Red Blood Cells % 0 %; Platelet Count 371 10^3/cmm (130-400); Red Blood Count 4.32 10^6/uL (4.1-5.3); Red Cell Distribution Width 12.9 % (12.1-15.1); White Blood Count 9.6 10^3/uL (4.0-10.0)
--- NOTE | 2021-06-16 20:07 | XRR_ITS ---
PROCEDURE INFORMATION: Exam: XR Abdomen Exam date and time: 06/16/2021 8:07 PM Age: 61 years old Clinical indication: Abdominal pain; Additional info: Abd pain TECHNIQUE: Imaging protocol: XR of the abdomen. Views: Frontal supine view of the abdomen. 1 View. COMPARISON: CR XR KUB portable [id number] 05/21/2021 5:36 AM FINDINGS: Gastrointestinal tract: Diverticulosis of the colon. Scattered gas within nonobstructed small bowel. Intraperitoneal space: Multiple surgical clips in the right abdomen. No pneumoperitoneum visualized. Bones/joints: Scoliosis and degenerative changes of the lumbar spine. Left hip arthroplasty changes. XR/XR KUB portable [id number] IMPRESSION: 1. Nonspecific nonobstructive bowel gas pattern. Radiation Dose CTDIVOL = (mGy): DLP = (mGy-cm)
[2021-06-16 20:09] VITALS: BP 133/78; PULSE 91; RESP 18; O2SAT 94
[2021-06-16 20:24] LABS: Carbon Dioxide 26 mmol/L (22-29); Chloride 100 mmol/L (98-107); Lipase 30 U/L (13-60); Sodium 139 mmol/L (136-145); Total Bilirubin 0.5 mg/dL (0.15-1.2)
[2021-06-16 20:38] LABS: Alanine Aminotransferase 14 U/L (0-33); Aspartate Amino Transferase 14 U/L (0-32); Calcium 8.6 mg/dL (8.5-10.5); Globulin 3.1 g/dL (1.3-4.6); Glomerular Filtration Rate 126.3 mL/min (90-130); Glucose 101 mg/dL (65-115)
[2021-06-16 20:44] LABS: Albumin Level 3.4 g/dL (3.5-5.2); Alkaline Phosphatase 134 IU/L (35-105); Anion Gap 15.6 (5-19); Blood Urea Nitrogen 2 mg/dL (6-20); Osmolality Calculated 284 mOsm/kg (285-295); Potassium 2.6 mmol/L (3.5-5.1); Total Protein 6.5 g/dL (6.6-8.7)
[2021-06-16] MEDS: lidocaine 2% viscous 15 ML, aluminum-mag hydrox-simethicon 30 ML, sucralfate oral liq 1 GM PO (20:47)
[2021-06-16] MEDS: magnesium sulfate premix 2 GM/50 ML PIGGYBACK IV (20:57)
[2021-06-16] MEDS: potassium chloride ER 20 mEq Tablet 40 MEQ PO ×2 (21:07)
[2021-06-16] MEDS: potassium chloride ER 10 mEq Tablet PO (21:07)
[2021-06-16 22:07] VITALS: BP 153/95
[2021-06-16] MEDS: ondansetron 2 mg/ML SDV 2 mL 4 MG IVP (22:52)
[2021-06-16 23:30] VITALS: BP 132/95; PULSE 106; RESP 17; O2SAT 93
[2021-06-16 23:49] LABS: Add Urine Microscopic? NO; Charge for UA Resulting for Rev
[2021-06-17 00:06] LABS: Urine Appearance Clear (CLEAR); Urine Color Yellow (Yellow)
[2021-06-17 00:07] LABS: Bilirubin Urine Neg (Negative); Blood Urine Neg (Negative); Glucose Urine UA Norm (Normal); Ketones Urine Negative (Negative); Leukocyte Esterase Urine Negative (Negative); Nitrate Urine Negative (Negative); Protein Urine Neg (Negative); Urobilinogen Urine Norm (Negative); pH Urine 8 (5-7)
[2021-06-17 00:08] LABS: Sulfosalicylic Acid Urine Negative (Negative)
[2021-06-17 16:15] LABS: Coronavirus Test Green County Not Detected
== END 2021-06-16 23:32 | disposition home or self-care (01) ==
PROVIDERS: Family Medicine; Emergency Provider Emergency Medicine; PCP Family Medicine
DX: R11.2 Nausea with vomiting, unspecified (principal); R19.7 Diarrhea, unspecified; E87.6 Hypokalemia; J44.9 Chronic obstructive pulmonary disease, unspecified; Z86.19 Personal history of other infectious and parasitic diseases; F17.210 Nicotine dependence, cigarettes, uncomplicated; Z20.822 Contact with and (suspected) exposure to COVID-19
CPT/HCPCS: 74018; 80053; 81003; 83690; 85025; 87635; 93005; 96361; 96365; 96375; 99284; J2405; J3475; J7030

== ENCOUNTER 2021-06-17 08:10 | Emergency (ER) | payer MEDICAID, SELFPAY ==
[2021-06-17 08:24] VITALS: BP 161/81; PULSE 113; RESP 20; TEMP 36.7; O2SAT 95; BMI 33.0
--- NOTE | 2021-06-17 09:57 | W.ED.NAVMDI ---
HPI - Nausea/Vomiting/Diarrhea General: Chief complaint: Nausea/Vomiting/Diarrhea Stated complaint: N/V/D, LWBS Yesterday for same Time Seen by Provider: 06/17/21 09:20 History of Present Illness: HPI Narrative: 61-year-old female presents emergency room with nausea vomiting diarrhea. She been seen several times in the last few weeks complaining of weakness she has been seen at other facilities as well. Work-up for the most part has been negative. She presents today stating she wants to be admitted to the assisted. She denies any dysuria urgency or frequency no hematochezia melena hematemesis coffee-ground emesis. MD elicited complaint: nausea, vomiting and diarrhea Onset (ago): week(s) Description of vomiting: food contents and watery Associated nausea: Yes Associated abdominal pain: Yes Location of pain: Diffuse Pain consistency: intermittent Severity: mild Quality: cramping Exacerbating factors: eating and vomiting Relieving factors: none Associated symtoms: Reports anxiety and nausea; Denies altered mental status, bloating, change in vision, chest pain, cough, diaphoresis, decreased urine output, dizziness, dysuria, epistaxis, fatigue, fecal incontinence, fevers/chills, headache(s), anorexia, malaise, myalgias, numbness, palpitations, rash, short of breath, syncope, tenesmus, tinnitus, weakness or other Review of Systems Const: Denies: fatigue, malaise or diaphoresis Eyes: Denies: change in vision ENMT: Denies: tinnitus or epistaxis Card: Denies: chest pain, palpitations or syncope Resp: Denies: dyspnea, productive cough or non-productive cough GI: Reports: nausea; Denies: bloating or fecal incontinence : Denies: dysuria Skin/Breast: Denies: rash or pruritus Neuro: Denies: headache(s) or dizziness Psych: Reports: anxiety PFSH ED PFSH: Medical History Amphetamine addiction Anxiety Aspiration of foreign body in respiratory tract Borderline personality disorder Chronic idiopathic pain syndrome Chronic pain syndrome COPD (chronic obstructive pulmonary disease) DDD (degenerative disc disease), cervical DJD (degenerative joint disease), lumbar GERD (gastroesophageal reflux disease) Hepatitis C, chronic History of intravenous drug abuse Interstitial lung disease Nicotine dependence, cigarettes, with other nicotine-induced disorders Opioid dependence, in remission Other stimulant dependence, in remission Partial small bowel obstruction Psychiatric care Pulmonary hypertension PVD (peripheral vascular disease) with claudication Respiratory failure with hypoxia Schizoaffective disorder, bipolar type Surgical History H/O tubal ligation Hx of BKA S/P cholecystectomy S/P tonsillectomy Family History Other CAD (coronary artery disease) Diabetes Lung disease Stroke Social History Smoking and tobacco status: current some day smoker cigarettes Years cigarettes smoked: 40 [ Other cigarette details: Hx of 1 PPD x 40 Years ] Quit status (tobacco): considering quitting Second hand smoke exposure: Yes Smoking risk assessment/counseling performed?: Yes Alcohol intake: former Counseling given: No Counseling given: No Lives independently: Yes Household members: none Marital status: Current occupational status: disabled History of recent travel: No Current gender identity: Female Female Reproductive History: Date of last menstrual period: 10/24/20 Spontaneous abortions: No Physical Exam Const: COMMON NORMALS: no acute distress EXAM LIMITATIONS: no altered mental status GENERAL APPEARANCE: cooperative and comfortable ORIENTATION/CONSCIOUSNESS: Yes awake, Yes oriented to person, Yes oriented to place and Yes oriented to time HENMT: COMMON NORMALS: normocephalic, atraumatic and hearing grossly normal bilaterally HEAD & SCALP: normocephalic and atraumatic Neck/C-Spine: COMMON NORMALS: no JVD Resp: COMMON NORMALS: normal respiratory effort, No retractions, No use of accessory muscles and clear to auscultation bilaterally AUSCULTATION: clear to auscultation bilaterally Cardio: COMMON NORMALS: no JVD, regular rate, regular rhythm and No murmurs present (Cardio) RATE: regular rate RHYTHM: regular rhythm GI: COMMON NORMALS: Soft to palpation and No hepatosplenomegaly present AUSCULTATION: Yes normoactive bowel sounds PALPATION: Yes Soft to palpation, No Tenderness to palpation present (GI), No Guarding due to palpation present (GI) and Yes No hepatosplenomegaly present Extremity: COMMON NORMALS: normal to inspection, capillary refill normal, no clubbing, cyanosis or edema, no calf tenderness and no pedal edema Neuro: SENSORIUM/ORIENTATION: Yes oriented to person, Yes oriented to place and Yes oriented to time Skin: COMMON NORMALS: no rashes or lesions noted GENERAL SKIN EXAM: no rashes or lesions noted Course Vital Signs: Vital signs: Vital Signs Temperature 98.1 F 06/17/21 08:24 Pulse Rate 78 06/17/21 11:12 Respiratory Rate 14 06/17/21 11:12 Blood Pressure 137/75 06/17/21 11:12 Pulse Oximetry 98 06/17/21 11:12 MDM - Nausea/Vomiting/Diarrhea MDM Narrative: Medical decision making narrative: Patient has nausea but has not developed any vomiting while she is here. Reviewed labs and imaging discussed with the patient at this point is not really anything we can do from here were unable to get her placed to the assisted. She should get that it established to her primary care doctor. Continue take the antiemetic she was previously given. Lab Data: Labs: Lab Results 06/17/21 06/17/21 10:35 10:35 WBC 7.2 10^3/uL 10^3/ uL (4.0-10.0) RBC 4.55 10^6/uL 10^6 /uL (4.1-5.3) Hgb 13.0 g/dL g/dL (11.5-15.3) Hct 44.3 % % (37.0-47.0) MCV 97.4 fl D fl (81-99) MCH 28.6 pg pg (28.0-34.0) MCHC 29.3 g/dL L D g/d L (30.0-36.0) RDW 13.2 % % (12.1-15.1) Plt Count 200 10^3/cmm D 1 0^3/cmm (130-400) MPV 9.4 fL fL (7.4-10.4) Neut % (Auto) 62.7 % % Lymph % (Auto) 26.9 % % [place] % (Auto) 8.5 % % Eos % (Auto) 0.8 % % Baso % (Auto) 0.7 % % Neut # (Auto) 4.51 10^3/uL 10^3 /uL (1.8-7.7) Lymph # (Auto) 1.9 10^3/uL 10^3/ uL (0.8-4.8) [place] # (Auto) 0.6 10^3/uL 10^3/ uL (0.2-0.9) Eos # (Auto) 0.1 10^3/uL 10^3/ uL (0.0-0.8) Baso # (Auto) 0.1 10^3/uL 10^3/ uL (0.0-0.1) Nucleated RBC % (a uto) 0 % % Nucleated RBCs # 0.0 /100WBC /100W BC Sodium 137 mmol/L mmol/L (136-145) Potassium 3.8 mmol/L mmol/L (3.5-5.1) Chloride 106 mmol/L mmol/L (98-107) Carbon Dioxide 19 mmol/L L mmol/ L (22-29) Anion Gap 15.8 (5-19) BUN 2 mg/dL L mg/dL (6-20) Creatinine 0.4 mg/dL L mg/dL (0.5-0.9) GFR Calculation 163.4 mL/min H mL /min (90-130) Glucose 138 mg/dL H mg/dL (65-115) Calculated Osmolal ity 282 mOsm/kg L mOs m/kg (285-295) Calcium 8.0 mg/dL L mg/dL (8.5-10.5) Total Bilirubin 0.3 mg/dL mg/dL (0.15-1.2) AST 16 U/L U/L (0-32) ALT 14 U/L U/L (0-33) Alkaline Phosphata se 126 IU/L H IU/L (35-105) Creatine Kinase 44 U/L U/L (26-192) Total Protein 6.0 g/dL L g/dL (6.6-8.7) Albumin 2.9 g/dL L g/dL (3.5-5.2) Globulin 3.1 g/dL g/dL (1.3-4.6) Discharge Plan Discharge Patient Disposition: Home Clinical Impression: Nausea Condition: Stable Prescriptions: No Action promethazine 12.5 mg tablet 12.5 mg PO DAILY PRN (Reason: nausea and vomiting) 30 Days Qty: 30 RF: 5 budesonide 0.5 mg/2 mL suspension for nebulization 0.5 mg inhalation BID Qty: 60 RF: 5 albuterol sulfate 2.5 mg /3 mL (0.083 %) solution for nebulization 2.5 mg inhalation Q4H PRN (Reason: shortness of breath or wheezing) Qty: 180 RF: 5 albuterol sulfate 90 mcg/actuation HFA aerosol inhaler 2 puff INHALATION Q6H PRN (Reason: shortness of breath or wheezing) 30 Days Qty: 18 RF: 5 One Daily 27 mg iron- 800 mcg tablet 1 tab PO DAILY 90 Days Qty: 90 RF: 1 epinephrine [EpiPen 2-Reji] 0.3 mg/0.3 mL auto-injector 0.3 mg IM Q15M PRN (Reason: anaphylaxis) Qty: 2 RF: 0 miscellaneous medical supply Misc See Rx Instructions miscellaneous .COMPLEX Qty: 1 RF: 0 pregabalin 200 mg capsule 200 mg PO TID 30 Days Qty: 90 RF: 2 famotidine 20 mg tablet 20 mg PO BID 30 Days Qty: 60 RF: 2 Anoro Ellipta 62.5-25 mcg/actuation blister with device 1 inh inhalation DAILY 30 Days Qty: 60 RF: 3 dextromethorphan polistirex 30 mg/5 mL suspension,extended rel 12 hr 10 ml PO Q12H PRN (Reason: cough) Qty: 89 RF: 0 miscellaneous medical supply Misc See Rx Instructions miscellaneous .COMPLEX Qty: 1 RF: 0 bupropion HCl 150 mg tablet sustained-release 12 hr 150 mg PO BID RF: 0 lamotrigine 100 mg tablet 150 mg PO QAM RF: 0 potassium chloride 20 mEq tablet,ER particles/crystals 20 meq PO DAILY Qty: 14 RF: 0 fluoxetine 40 mg capsule 40 mg PO QAM Qty: 0 RF: 0 quetiapine 300 mg tablet 300 mg PO BEDTIME Qty: 0 RF: 0 furosemide 20 mg tablet 20 mg PO QAM PRN (Reason: Edema) Qty: 0 RF: 0 polyethylene glycol 3350 [Miralax] 17 gram powder in packet 17 g PO DAILY PRN (Reason: constipation) Qty: 30 RF: 0 ondansetron 4 mg tablet,disintegrating 4 mg PO Q6H PRN (Reason: nausea and vomiting) Qty: 14 RF: 0 potassium chloride 10 mEq tablet extended release 10 meq PO BID 3 Days Qty: 6 RF: 0 acetaminophen 500 mg tablet 500 mg PO Q6H PRN (Reason: pain) 5 Days Qty: 20 RF: 0 Pepcid 20 mg tablet 20 mg PO BID PRN (Reason: abdominal pain) 10 Days Qty: 20 RF: 0 Maalox Advanced 1,000-60 mg tablet,chewable 1 tab PO TID PRN (Reason: abdominal pain) 7 Days Qty: 21 RF: 0 Zofran 4 mg tablet 4 mg PO TID PRN (Reason: nausea and vomiting) 4 Days Qty: 12 RF: 0 Discharge Orders: Discharge ED (Routine); Ordered 06/17/21 Ordered By: Jasen Galeano Referrals: Nicole Louis MD [Primary Care Provider] - Discharge Diet: Clear Liquid Discharge Activity: Increase activity as tolerated Patient Instructions: Opioid Safety Activity Restrictions/Additional Instructions: Is antiemetics as previously prescribed antiemetics Coding Level of Care Code ED Preservative Filler Machine Operator for Dorcas Fwd Exam Comprehensive
[2021-06-17 10:39] LABS: Basophils # 0.1 10^3/uL (0.0-0.1); Basophils % 0.7 %; Eosinophils # 0.1 10^3/uL (0.0-0.8); Eosinophils % 0.8 %; Hematocrit 44.3 % (37.0-47.0); Lymphocytes # 1.9 10^3/uL (0.8-4.8); Lymphocytes % 26.9 %; Mean Corpuscular HGB Conc 29.3 g/dL (30.0-36.0); Mean Corpuscular Hemoglobin 28.6 pg (28.0-34.0); Mean Corpuscular Volume 97.4 fl (81-99); Mean Platelet Volume 9.4 fL (7.4-10.4); Monocytes # 0.6 10^3/uL (0.2-0.9); Monocytes % 8.5 %; Neutrophils # 4.51 10^3/uL (1.8-7.7); Neutrophils % 62.7 %; Nucleated Red Blood Cells % 0 %; Red Blood Count 4.55 10^6/uL (4.1-5.3); Red Cell Distribution Width 13.2 % (12.1-15.1); White Blood Count 7.2 10^3/uL (4.0-10.0)
[2021-06-17 10:59] LABS: Alanine Aminotransferase 14 U/L (0-33); Albumin Level 2.9 g/dL (3.5-5.2); Alkaline Phosphatase 126 IU/L (35-105); Anion Gap 15.8 (5-19); Blood Urea Nitrogen 2 mg/dL (6-20); Carbon Dioxide 19 mmol/L (22-29); Chloride 106 mmol/L (98-107); Creatine Phosphokinase 44 U/L (26-192); Globulin 3.1 g/dL (1.3-4.6); Glomerular Filtration Rate 163.4 mL/min (90-130); Glucose 138 mg/dL (65-115); Osmolality Calculated 282 mOsm/kg (285-295); Potassium 3.8 mmol/L (3.5-5.1); Sodium 137 mmol/L (136-145); Total Bilirubin 0.3 mg/dL (0.15-1.2)
[2021-06-17 11:00] LABS: Aspartate Amino Transferase 16 U/L (0-32)
[2021-06-17 11:12] VITALS: BP 137/75; PULSE 78; RESP 14; O2SAT 98
[2021-06-17 11:14] LABS: Slide Review Slide Review Perform
[2021-06-17 11:15] LABS: Platelet Count 200 10^3/cmm (130-400)
== END 2021-06-17 15:56 | disposition home or self-care (01) ==
PROVIDERS: Emergency Provider Family Medicine; PCP Family Medicine
DX: R11.0 Nausea (principal); J44.9 Chronic obstructive pulmonary disease, unspecified; Z86.19 Personal history of other infectious and parasitic diseases; Z89.519 Acquired absence of unspecified leg below knee; F17.210 Nicotine dependence, cigarettes, uncomplicated
CPT/HCPCS: 36415; 80053; 82550; 85025; 99282

== ENCOUNTER → 2022-01-06 14:08 | Outpatient (BNVA) | payer MEDICAID, SELFPAY | PROVIDERS: PCP Family Medicine; Visit Provider Family Medicine | DX: R11.0 Nausea (principal); G89.4 Chronic pain syndrome; M47.816 Spondylosis without myelopathy or radiculopathy, lumbar region; M25.572 Pain in left ankle and joints of left foot; G89.29 Other chronic pain; E87.6 Hypokalemia; K21.9 Gastro-esophageal reflux disease without esophagitis; J44.1 Chronic obstructive pulmonary disease with (acute) exacerbation; Z13.1 Encounter for screening for diabetes mellitus; Z13.6 Encounter for screening for cardiovascular disorders; R73.9 Hyperglycemia, unspecified | CPT/HCPCS: 80053; 80061; 83036 ==

== ENCOUNTER 2022-02-03 00:42 | Inpatient (IN) | payer MEDICAID, SELFPAY ==
[2022-02-03] VITALS (15 sets, daily range): BP systolic 107–142; BP diastolic 61–74; PULSE 76–89; RESP 16–22; TEMP 36.7–37.1; O2SAT 91–96; BMI 38.0; BMI 36.9
--- NOTE | 2022-02-03 01:00 | XRR_ITS ---
PROCEDURE INFORMATION: Exam: XR Left Knee Exam date and time: 02/03/2022 1:25 AM Age: 61 years old Clinical indication: Pain; Knee; Left; Additional info: Left knee pain after fall TECHNIQUE: Imaging protocol: Radiologic exam of the Left knee. Views: 1 or 2 views. COMPARISON: No relevant prior studies available. FINDINGS: Bones/joints: A single lateral view demonstrates an oblique fracture involving the distal aspect of the left femoral shaft. There is 2 cm of displacement and some posterior angulation. No other significant acute bone or joint abnormality. Soft tissues: No significant acute finding. XR/XR knee LT 1-2V 00501 IMPRESSION: Fracture of the distal left femur, details above.
--- NOTE | 2022-02-03 01:05 | ED_ITS ---
HPI - Extremity Problem General: Chief complaint: Extremity Injury, Lower Stated complaint: knne pain Time Seen by Provider: 02/03/22 00:45 History of Present Illness: Patient is a 61-year-old female comes to the ED via EMS with left knee pain. EMS gave patient 50 MCG's of fentanyl while en route. Patient says injury occurred just prior to arrival she was trying to get into her bed and fell hitting her left knee on the ground. She rates her pain currently a 9 out of 10. Any movement of the knee worsens pain. Denies any head trauma or loss of consciousness. Associated symptoms: Deny chest pain, fever(s) or rash Review of Systems Const: Denies: fever(s), chills or fatigue Eyes: Denies: change in vision or eye discomfort ENMT: Denies: throat pain, odynophagia, nasal discharge or nasal congestion Card: Denies: chest pain, palpitations, edema, swelling of feet/ankles, dysp gregorio on exertion or orthopnea Resp: Denies: dyspnea, productive cough or non-productive cough GI: Denies: abdominal pain, nausea, vomiting, diarrhea, constipation or hematochezia : Denies: flank pain, dysuria or hematuria Musc: Reports: extremity pain (Left knee); Denies: neck pain, back pain or extremity swelling Skin/Breast: Denies: rash or new lesions Neuro: Denies: headache(s), numbness in extremities or weakness in extremities [facility] ED PFSH: Medical History Amphetamine addiction Anxiety Aspiration of foreign body in respiratory tract Borderline personality disorder Chronic idiopathic pain syndrome Chronic pain syndrome COPD (chronic obstructive pulmonary disease) DDD (degenerative disc disease), cervical DJD (degenerative joint disease), lumbar GERD (gastroesophageal reflux disease) Hepatitis C, chronic History of intravenous drug abuse Interstitial lung disease Nicotine dependence, cigarettes, with other nicotine-induced disorders Opioid dependence, in remission Other stimulant dependence, in remission Partial small bowel obstruction Psychiatric care Pulmonary hypertension PVD (peripheral vascular disease) with claudication Respiratory failure with hypoxia Schizoaffective disorder, bipolar type Surgical History H/O tubal ligation Hx of BKA S/P cholecystectomy S/P tonsillectomy Family History Other CAD (coronary artery disease) Diabetes Lung disease Stroke Social History Smoking and tobacco status: current every day smoker cigarettes Years cigarettes smoked: 40 [ Other cigarette details: Hx of 1 PPD x 40 Years] Quit status (tobacco): considering quitting Second hand smoke exposure: Yes Smoking risk assessment/counseling performed?: Yes Alcohol intake: former Counseling given: No Counseling given: No Lives independently: Yes Household members: none Marital status: Current occupational status: disabled History of recent travel: No Current gender identity: Female Female Reproductive History: Date of last menstrual period: 10/24/20 Spontaneous abortions: No Physical Exam Const: COMMON NORMALS: patient oriented x3 and alert GENERAL APPEARANCE: cooperative and in distress (Patient is crying out in pain) HENMT: COMMON NORMALS: normocephalic HEAD & SCALP: normocephalic MOUTH: Normal oral and palatal mucosa present THROAT: posterior oropharynx normal and uvula midline Neck/C-Spine: COMMON NORMALS: supple GENERAL: Yes normal visual inspection Resp: COMMON NORMALS: normal respiratory effort, No retractions, No use of accessory muscles and clear to auscultation bilaterally AUSCULTATION: clear to auscultation bilaterally Cardio: COMMON NORMALS: regular rate, regular rhythm, S1 normal heart sound present, S2 normal heart sound present, No gallops present (Cardio), No clicks present (Cardio), No murmurs present (Cardio) and Peripheral pulses 2+ throughout RATE: regular rate RHYTHM: regular rhythm HEART SOUNDS: S1 normal heart sound present and S2 normal heart sound present PERIPHERAL PULSES: Peripheral pulses 2+ throughout GI: COMMON NORMALS: Normal to inspection, nondistended, normoactive bowel sounds present, Soft to palpation, non-tender and no masses PALPATION: Yes Soft to palpation : COMMON NORMALS: Yes no CVA tenderness BLADDER/KIDNEY EXAM: Yes no CVA tenderness Back/Pelvis: COMMON NORMALS: no CVA tenderness Extremity: NARRATIVE EXTREMITY EXAM: Right leg?below the knee amputation. Left leg?swelling and tenderness noted over knee and distal end of femur. Limited range of motion due to pain. Neurovascular intact distally. Neuro: COMMON NORMALS: patient oriented x3 and moves all extremities SENSORIUM/ORIENTATION: Yes alert Skin: GENERAL SKIN EXAM: dry skin Course Consultations: Consultation #1: I contacted Dr. Carrasco and told about patient case and he agreed to have patient admitted to the hospital and he will see her tomorrow morning. Time: 01:46 Vital Signs: Vital signs: Vital Signs Temperature 98.7 F 02/03/22 00:54 Pulse Rate 88 02/03/22 00:54 Respiratory Rate 18 02/03/22 01:16 Blood Pressure 120/73 02/03/22 00:54 Pulse Oximetry 92 02/03/22 00:54 MDM - Extremity (Nontraumatic) Medical Decision Making Patient is a 61-year-old female comes to the ED with left knee pain after fall. she fell trying to climb into her bed tonight denies any head trauma or loss of consciousness. Vitals are stable. Patient appears in some pain. Left leg?swelling and tenderness noted over knee and distal end of femur. Limited range of motion due to pain. Neurovascular intact distally. X-ray of left knee showed a femur shaft fracture with displacement and angulation. Talk with Dr. Trejo about patient case and patient needs to be admitted. I contacted Dr. Carrasco told about patient case and he agreed to have patient admitted. Dr. Trejo placed the admitting orders. Imaging Data Xray Ortho: My impression: Left knee x-ray shows a femoral shaft fracture with displacement and angulation. Discharge Plan Discharge Patient Disposition: Admitted As Inpatient Clinical Impression: Closed femur fracture Condition: Stable Prescriptions: No Action epinephrine [EpiPen 2-Reji] 0.3 mg/0.3 mL auto-injector 0.3 mg IM Q15M PRN (Reason: anaphylaxis) Qty: 2 0RF Rx Instructions: for 2 doses miscellaneous medical supply Misc See Rx Instructions miscellaneous .COMPLEX Qty: 1 0RF Rx Instructions: motorized wheelchair miscellaneous; Anoro Ellipta 62.5-25 mcg/actuation blister with device 1 inh inhalation DAILY 30 Days Qty: 60 3RF promethazine 12.5 mg tablet 12.5 mg PO DAILY PRN (Reason: nausea and vomiting) 30 Days Qty: 30 5RF One Daily 27 mg iron- 800 mcg tablet 1 tab PO DAILY 90 Days Qty: 90 1RF pregabalin 200 mg capsule 200 mg PO TID 30 Days Qty: 90 2RF potassium chloride 20 mEq tablet,ER particles/crystals 20 meq PO DAILY 30 Days Qty: 30 5RF albuterol sulfate 90 mcg/actuation HFA aerosol inhaler 2 puff INHALATION Q6H PRN (Reason: shortness of breath or wheezing) 30 Days Qty: 18 5RF budesonide 0.5 mg/2 mL suspension for nebulization 0.5 mg inhalation BID Qty: 60 5RF albuterol sulfate 2.5 mg /3 mL (0.083 %) solution for nebulization 2.5 mg inhalation Q4H PRN (Reason: shortness of breath or wheezing) Qty: 180 5RF dextromethorphan polistirex 30 mg/5 mL suspension,extended rel 12 hr 10 ml PO Q12H PRN (Reason: cough) Qty: 89 0RF famotidine 20 mg tablet 20 mg PO BID 30 Days Qty: 60 5RF doxycycline hyclate 100 mg capsule 100 mg PO BID 5 Days Qty: 10 0RF prednisone 20 mg tablet See Rx Instructions PO .q AM 14 Days Qty: 17 0RF Rx Instructions: Day 1-5: 2 tabs, Day 6-10: 1 tabs, Day 11-14: 1/2 tabs PO .q AM; miscellaneous medical supply Misc See Rx Instructions miscellaneous .COMPLEX Qty: 1 0RF Rx Instructions: Wheelchair miscellaneous ; fluoxetine 40 mg capsule 80 mg PO DAILY Qty: 60 0RF bupropion HCl 150 mg tablet sustained-release 12 hr 300 mg PO QAM Qty: 60 0RF lamotrigine 100 mg tablet 150 mg PO QAM Qty: 45 0RF quetiapine 300 mg tablet 600 - 750 mg PO BEDTIME Qty: 75 0RF varenicline [Chantix Continuing Month Box] 1 mg tablet 1 mg PO BID Qty: 56 0RF ibuprofen 800 mg tablet 800 mg PO TID PRN (Reason: pain) 30 Days Qty: 90 2RF Rx Instructions: WITH FOOD Referrals: Nicole Louis MD [Primary Care Provider] - Coding Level of Care Code ED Table Games Dual Rate Supervisor for Chg Fwd Exam Comprehensive
[2022-02-03] MEDS: LORazepam 2 mg/mL INJ 1 mL 1 MG IVP (01:15)
[2022-02-03] MEDS: morphine 4 mg/mL SDV 1 mL IVP (01:16)
--- NOTE | 2022-02-03 01:28 | XRR_ITS ---
PROCEDURE INFORMATION: Exam: XR Chest Exam date and time: 02/03/2022 1:31 AM Age: 61 years old Clinical indication: Screening exam; Other screening; Patient HX: Pre op for broken femur; Additional info: HTN TECHNIQUE: Imaging protocol: Radiologic exam of the chest. Views: 1 view. COMPARISON: CR (CHEST, ) 06/02/2021 5:18 PM FINDINGS: Lungs: No CHF/pulmonary edema. Mild suspected parenchymal scarring or atelectasis in the left mid and lower lungs, similar to the prior exam. Visible lungs otherwise appear essentially clear. Pleural spaces: No visible pneumothorax. No definite pleural fluid. Heart/Mediastinum: Heart size is within normal limits. Bones/joints: Prominent degenerative/arthritic changes again seen in the right shoulder. XR/XR chest 1V portable [id number] IMPRESSION: 1. No definite CHF or pneumonia. 2. Other findings discussed above.
--- NOTE | 2022-02-03 01:29 | ECG_ITS ---
[facility] Test Date: 2022-02-03 Pat Name: Dalila Samuels Department: Room: Gender: Female Director Of Development And Marketing: : 1960 Requested By: Odilon Trejo Order Number: [id number] Danae MD: Bruce Cheng M.D. Measurements Intervals [place] Rate: 87 P: 68 TX: 170 QRS: 58 QRSD: 113 T: 67 QT: 388 QTc: 468 Interpretive Statements SINUS RHYTHM MODERATE INTRAVENTRICULAR CONDUCTION DELAY [110+ ms QRS DURATION] WARNING: DATA QUALITY MAY AFFECT INTERPRETATION Compared to ECG 06/16/2021 21:47:26 Intraventricular conduction delay now present Ectopic atrial rhythm no longer present Electronically Signed On 02-03-2022 16:47:10 CDT by Bruce Cheng M.D. [email or web address]
[2022-02-03] MEDS: haloperidol inj 5 mg/mL INJ 1 mL IVP (02:13)
[2022-02-03 02:19] LABS: Basophils % 0.4 %; Eosinophils # 0.3 10^3/uL (0.0-0.8); Hemoglobin 11.4 g/dL (11.5-15.3); Lymphocytes # 1.9 10^3/uL (0.8-4.8); Lymphocytes % 18.9 %; Mean Corpuscular HGB Conc 33.5 g/dL (30.0-36.0); Mean Corpuscular Hemoglobin 29.5 pg (28.0-34.0); Mean Corpuscular Volume 88.1 fl (81-99); Mean Platelet Volume 8.9 fL (7.4-10.4); Monocytes # 0.9 10^3/uL (0.2-0.9); Monocytes % 8.6 %; Neutrophils # 6.85 10^3/uL (1.8-7.7); Neutrophils % 68.1 %; Nucleated Red Blood Cells % 0 %; Platelet Count 308 10^3/cmm (130-400); Red Blood Count 3.86 10^6/uL (4.1-5.3); White Blood Count 10.1 10^3/uL (4.0-10.0)
--- NOTE | 2022-02-03 02:36 | P.HP_ITS ---
Providers/Chief Complaint Admitting Physician: David Simon Primary Care Provider: Nicole Louis MD Chief Complaint: knne pain History of Present Illness Pleasant 61-year-old lady had fallen down when trying to get into bed, states that she had fallen several times trying to get into her bed which she says is too high. Subsequently with left leg pain, with noted distal left femoral fracture with displacement and angulation. States that with getting sweaty she removes her prosthesis. She reports that she has overall been having more difficulties with mobility recently, states that she has been having to crawl to get around at home. Apart from intermittent headache, she denies new developments in her health. Review of Systems Const: Reports: other (Weaker); Denies: fever(s), chills, body aches or malaise Eyes: Denies: change in vision, eye discomfort or eye redness ENMT: Denies: throat pain, oral sores or ear or mastoid pain Card: Denies: chest pain, edema, pre-syncope or dyspnea on exertion Resp: Denies: dyspnea, productive cough, change in phlegm color or hemoptysis GI: Denies: abdominal pain, nausea, vomiting, diarrhea, constipation, hematochezia or melena : Denies: flank pain, urinary frequency or hematuria Musc: Reports: extremity pain; Denies: back pain, joint swelling or joint redness Skin/Breast: Denies: rash or new lesions Neuro: Reports: headache(s); Denies: numbness in extremities, weakness in extremities, dizziness, confusion or seizure-like activity Endo: Denies: polyuria or polydipsia Beau/Lymph: Denies: easy bleeding or tender lymph nodes All/Imm: Denies: urticaria or tongue swelling Medications/Allergies Home Medications Medication Instructions Recorded Confirmed Last Taken Type miscellaneous medical supply See Rx Instructions MISCELLANEOUS 11/28/19 01/06/22 Unknown Rx .COMPLEX #1 each epinephrine 0.3 mg/0.3 mL 0.3 mg (0.3 mL) IM Q15M PRN #2 each 01/13/21 01/06/22 Unknown Rx injection, auto-injector (EpiPen 2-Reji) miscellaneous medical supply See Rx Instructions MISCELLANEOUS 01/13/21 01/06/22 Unknown Rx .COMPLEX #1 ea bupropion HCl 150 mg tablet,12 hr 300 mg PO QAM #60 tab 01/03/22 01/06/22 Unknown Rx sustained-release fluoxetine 40 mg capsule 80 mg PO DAILY #60 cap 01/03/22 01/06/22 Unknown Rx lamotrigine 100 mg tablet 150 mg PO QAM #45 tab 01/03/22 01/06/22 Unknown Rx quetiapine 300 mg tablet 600 - 750 mg PO BEDTIME #75 tab 01/03/22 01/06/22 Unknown Rx varenicline 1 mg tablet (Chantix 1 mg PO BID #56 tab 01/03/22 01/06/22 Unknown Rx Continuing Month Box) albuterol sulfate 2.5 mg (3 mL) INHALATION Q4H PRN 01/06/22 01/06/22 Unknown Rx #180 ml albuterol sulfate 90 mcg/actuation 2 puff INHALATION Q6H PRN 30 Days 01/06/22 01/06/22 Unknown Rx aerosol inhaler #18 gm budesonide 0.5 mg/2 mL suspension 0.5 mg (2 mL) INHALATION BID #60 ml 01/06/22 01/06/22 Unknown Rx for nebulization dextromethorphan polistirex 30 10 ml PO Q12H PRN #89 ml 01/06/22 01/06/22 Unknown Rx mg/5 mL oral susp ext.release 12hr doxycycline hyclate 100 mg capsule 100 mg PO BID 5 Days #10 cap 01/06/22 01/06/22 Unknown Rx famotidine 20 mg tablet 20 mg PO BID 30 Days #60 tab 01/06/22 01/06/22 Unknown Rx potassium chloride 20 mEq 20 meq PO DAILY 30 Days #30 tab 01/06/22 01/06/22 Unknown Rx tablet,extended release(part/cryst) prednisone 20 mg tablet See Rx Instructions PO .q AM 14 01/06/22 01/06/22 Unknown Rx Days #17 tab pregabalin 200 mg capsule 200 mg PO TID 30 Days #90 cap 01/06/22 01/06/22 Unknown Rx vits no.129-ferrous fum 1 tab PO DAILY 90 Days #90 tab 01/06/22 01/06/22 Unknown Rx 27 mg iron-folic acid 800 mcg tablet ( One Daily) promethazine 12.5 mg tablet 12.5 mg PO DAILY PRN 30 Days #30 06/07/22 06/07/22 Unknown Rx tab umeclidinium 62.5 mcg-vilanterol 1 inh INHALATION DAILY 30 Days #60 01/06/22 01/06/22 Unknown Rx 25 mcg/actuation powdr for ea inhalation (Anoro Ellipta) ibuprofen 800 mg tablet 800 mg PO TID PRN 30 Days #90 tab 01/14/22 Unknown Rx Allergies Allergy/AdvReac Type Severity Reaction Status Date / Time Penicillins Allergy ALGY-Rash Verified 01/06/22 13:06 PFSH Acute PFSH: Medical History Amphetamine addiction Anxiety Aspiration of foreign body in respiratory tract Borderline personality disorder Chronic idiopathic pain syndrome Chronic pain syndrome COPD (chronic obstructive pulmonary disease) DDD (degenerative disc disease), cervical DJD (degenerative joint disease), lumbar GERD (gastroesophageal reflux disease) Hepatitis C, chronic History of intravenous drug abuse Interstitial lung disease Nicotine dependence, cigarettes, with other nicotine-induced disorders Opioid dependence, in remission Other stimulant dependence, in remission Partial small bowel obstruction Psychiatric care Pulmonary hypertension PVD (peripheral vascular disease) with claudication Respiratory failure with hypoxia Schizoaffective disorder, bipolar type Surgical History H/O tubal ligation Hx of BKA S/P cholecystectomy S/P tonsillectomy Family History Other CAD (coronary artery disease) Diabetes Lung disease Stroke Social History Smoking and tobacco status: current every day smoker cigarettes Years cigarettes smoked: 40 [ Other cigarette details: Hx of 1 PPD x 40 Years] Quit status (tobacco): considering quitting Second hand smoke exposure: Yes Smoking risk assessment/counseling performed?: Yes Alcohol intake: former Counseling given: No Counseling given: No Lives independently: Yes Household members: none Marital status: Current occupational status: disabled History of recent travel: No Current gender identity: Female Female Reproductive History: Date of last menstrual period: 10/24/20 Spontaneous abortions: No Vitals/I&O/Wt Last Vital Signs Temp 98.7 F 02/03/22 00:54 Pulse 88 02/03/22 00:54 Resp 18 02/03/22 01:16 BP 120/73 02/03/22 00:54 Pulse Ox 92 02/03/22 00:54 Weight last 48 hrs Weight 113.398 kg Physical Exam Const: COMMON NORMALS: alert GENERAL APPEARANCE: cooperative NUTRITIONAL APPEARANCE: obese ORIENTATION/CONSCIOUSNESS: Yes awake HENMT: COMMON NORMALS: normocephalic, EAC's normal, Normal external nose present and moist oral mucous membranes HEAD & SCALP: normocephalic NOSE: Normal external nose present EXTERNAL AUDITORY CANAL: EAC's normal Neck/C-Spine: COMMON NORMALS: no meningeal signs Chest: CHEST: Yes Symmetrical chest wall rise Resp: COMMON NORMALS: clear to auscultation bilaterally AUSCULTATION: clear to auscultation bilaterally Cardio: COMMON NORMALS: regular rate, regular rhythm and No murmurs present (Cardio) RATE: regular rate RHYTHM: regular rhythm GI: COMMON NORMALS: Normal to inspection, nondistended, normoactive bowel sounds present, Soft to palpation and non-tender PALPATION: Yes Soft to palpation Extremity: COMMON NORMALS: no pedal edema NARRATIVE EXTREMITY EXAM: R BKA OTHER: LLE everted, and antalgic positioning Neuro: COMMON NORMALS: moves all extremities SENSORIUM/ORIENTATION: Yes alert MENINGEAL SIGNS: Yes no meningeal signs Psych: COMMON NORMALS: mental status grossly normal Skin: COMMON NORMALS: no wounds RASHES: no rashes Data : 02/03/22 02:15 02/03/22 02:15 A&P Assessment and plan (1) Closed femur fracture: Left distal femur fracture with displacement and angulation after mechanical fa ll trying to get onto the bed. Pending orthopedic assessment and plans. She is interested in having the fracture repaired. She is overall not mobile, more so recently, but this does not appear to be limited by her respiratory status, and without any reports of anginal discomfort, more so by generalized weakness, deconditioning and functional decline. She otherwise reports to be in close to baseline state of health. Some blood work is still pending, but overall does not appear that additional optimization would be of benefit before proceeding with surgical repair if this is deemed needed and agreed to. She does appear to be on intermittent steroids for COPD, monitor for adrenal insufficiency. Otherwise some increased risk of surgical site infection. N.p.o. and for DVT prophylaxis for now SCDs alone given description of possible difficulty of later today. Status: Acute Qualifiers: Encounter type: initial encounter Femur location: unspecified portion of femur Fracture morphology: unspecified fracture morphology Laterality: left Qualified Code(s): S72.92XA - Unspecified fracture of left femur, initial encounter for closed fracture (2) Multiple falls: Recently generalized weakness, more difficulty with getting around, ambulating, so which she states has to do with her not keeping him depressed easily due to sweat, but otherwise also states has been having to crawl at home to get around. PT, OT assessment postoperatively. Case management consultation. Status: Acute Plan Chronic pain syndrome COPD DDD GERD Hepatitis C Smoking addiction, states she is trying to quit Pulmonary hypertension PVD R BKA Schizoaffective disorder, bipolar type Her other chronic medical conditions noted Requested her home medications to be updated. Please reconcile once this has been done. Attestations Medical Necessity Statement*: Admission of over 2 midnights is anticipated for assessment of management of left femoral shaft fracture with displacement and angulation. Coding Level of Care Code Acute Food Service Attendant for [facility] [place] Diagnoses Closed femur fracture S72.92XA Encounter type: initial encounter Femur location: unspecified portion of femur Fracture morphology: unspecified fracture morphology Laterality: left Multiple falls R29.6
[2022-02-03 02:37] LABS: Alanine Aminotransferase 18 U/L (0-33); Alkaline Phosphatase 106 IU/L (35-105); Aspartate Amino Transferase 31 U/L (0-32); Blood Urea Nitrogen 13 mg/dL (6-20); Calcium 8.9 mg/dL (8.5-10.5); Carbon Dioxide 23 mmol/L (22-29); Chloride 101 mmol/L (98-107); Glomerular Filtration Rate 64.1 mL/min (90-130); Glucose 131 mg/dL (65-115); Osmolality Calculated 284 mOsm/kg (285-295); Sodium 136 mmol/L (136-145); Total Bilirubin 0.4 mg/dL (0.15-1.2)
[2022-02-03 02:43] LABS: INR 1.09 (0.8-1.2)
--- NOTE | 2022-02-03 03:34 | PC.NURSE ---
patient unable to verify home meds
--- NOTE | 2022-02-03 07:53 | XRR_ITS ---
PROCEDURE INFORMATION: Exam: XR Left Femur Exam date and time: 02/03/2022 7:58 AM Age: 61 years old Clinical indication: Condition or disease; Other: Fracture TECHNIQUE: Imaging protocol: Radiologic exam of the Left femur. Views: 2 views. Total images: 1 COMPARISON: CR XR knee LT 1-2V [id number] 02/03/2022 1:25 AM FINDINGS: Bones/joints: Left hip arthroplasty is present. Oblique minimally comminuted fracture involving the distal metadiaphyseal area of the left femur similar to prior exam. Soft tissues: Unremarkable. XR/XR femur LT 1V [id number] IMPRESSION: Oblique minimally comminuted fracture involving the distal metadiaphyseal area of the left femur similar to prior exam.
--- NOTE | 2022-02-03 08:00 | PM.CONSULT ---
Providers/Reason For Consult Consulting Physician/Specialty*: Perico Carrasco MD; orthopedic surgery Reason for Consult*: Left supracondylar femur fracture Attending Physician: Alpesh Tony MD Primary Care Provider: Nicole Louis MD History of Present Illness History of Present Illness Dalila Samuels is a 61 year old female who fell last night while trying to get into bed. He has a previous right below-knee amputation. She developed severe left leg pain and inability to be mobilized. She was transferred to our emergency room where radiographs revealed a supracondylar femur fracture on a single lateral radiograph. She describes a number of recent falls around her home. She denies any other extremity injury. Medications/Allergies Home Medications Medication Instructions Recorded Confirmed Last Taken Type miscellaneous medical supply See Rx Instructions MISCELLANEOUS 11/28/19 01/06/22 Unknown Rx .COMPLEX #1 each epinephrine 0.3 mg/0.3 mL 0.3 mg (0.3 mL) IM Q15M PRN #2 each 01/13/21 01/06/22 Unknown Rx injection, auto-injector (EpiPen 2-Reji) miscellaneous medical supply See Rx Instructions MISCELLANEOUS 01/13/21 01/06/22 Unknown Rx .COMPLEX #1 ea bupropion HCl 150 mg tablet,12 hr 300 mg PO QAM #60 tab 01/03/22 01/06/22 Unknown Rx sustained-release fluoxetine 40 mg capsule 80 mg PO DAILY #60 cap 01/03/22 01/06/22 Unknown Rx lamotrigine 100 mg tablet 150 mg PO QAM #45 tab 01/03/22 01/06/22 Unknown Rx quetiapine 300 mg tablet 600 - 750 mg PO BEDTIME #75 tab 01/03/22 01/06/22 Unknown Rx varenicline 1 mg tablet (Chantix 1 mg PO BID #56 tab 01/03/22 01/06/22 Unknown Rx Continuing Month Box) albuterol sulfate 2.5 mg (3 mL) INHALATION Q4H PRN 01/06/22 01/06/22 Unknown Rx #180 ml albuterol sulfate 90 mcg/actuation 2 puff INHALATION Q6H PRN 30 Days 01/06/22 01/06/22 Unknown Rx aerosol inhaler #18 gm budesonide 0.5 mg/2 mL suspension 0.5 mg (2 mL) INHALATION BID #60 ml 01/06/22 01/06/22 Unknown Rx for nebulization dextromethorphan polistirex 30 10 ml PO Q12H PRN #89 ml 01/06/22 01/06/22 Unknown Rx mg/5 mL oral susp ext.release 12hr doxycycline hyclate 100 mg capsule 100 mg PO BID 5 Days #10 cap 01/06/22 01/06/22 Unknown Rx famotidine 20 mg tablet 20 mg PO BID 30 Days #60 tab 01/06/22 01/06/22 Unknown Rx potassium chloride 20 mEq 20 meq PO DAILY 30 Days #30 tab 01/06/22 01/06/22 Unknown Rx tablet,extended release(part/cryst) prednisone 20 mg tablet See Rx Instructions PO .q AM 14 01/06/22 01/06/22 Unknown Rx Days #17 tab pregabalin 200 mg capsule 200 mg PO TID 30 Days #90 cap 01/06/22 01/06/22 Unknown Rx vits no.129-ferrous fum 1 tab PO DAILY 90 Days #90 tab 01/06/22 01/06/22 Unknown Rx 27 mg iron-folic acid 800 mcg tablet ( One Daily) promethazine 12.5 mg tablet 12.5 mg PO DAILY PRN 30 Days #30 01/06/22 01/06/22 Unknown Rx tab umeclidinium 62.5 mcg-vilanterol 1 inh INHALATION DAILY 30 Days #60 01/06/22 01/06/22 Unknown Rx 25 mcg/actuation powdr for ea inhalation (Anoro Ellipta) ibuprofen 800 mg tablet 800 mg PO TID PRN 30 Days #90 tab 01/14/22 Unknown Rx Allergies Allergy/AdvReac Type Severity Reaction Status Date / Time Penicillins Allergy ALGY-Rash Verified 01/06/22 13:06 Current Medications Generic Name Dose Route Start Last Admin Trade Name Freq PRN Reason Stop Dose Admin Albuterol/Ipratropium 3 ml 02/03/22 03:11 02/03/22 04:16 Ipratropium-Albuterol 3 Ml Neb INHALATION Not Given Q6H.RESPIRATORY DONALD PFSH Acute PFSH: Medical History Amphetamine addiction Anxiety Aspiration of foreign body in respiratory tract Borderline personality disorder Chronic idiopathic pain syndrome Chronic pain syndrome COPD (chronic obstructive pulmonary disease) DDD (degenerative disc disease), cervical DJD (degenerative joint disease), lumbar GERD (gastroesophageal reflux disease) Hepatitis C, chronic History of intravenous drug abuse Interstitial lung disease Nicotine dependence, cigarettes, with other nicotine-induced disorders Opioid dependence, in remission Other stimulant dependence, in remission Partial small bowel obstruction Psychiatric care Pulmonary hypertension PVD (peripheral vascular disease) with claudication Respiratory failure with hypoxia Schizoaffective disorder, bipolar type Surgical History H/O tubal ligation Hx of BKA S/P cholecystectomy S/P tonsillectomy Family History Other CAD (coronary artery disease) Diabetes Lung disease Stroke Social History Smoking and tobacco status: current every day smoker cigarettes Years cigarettes smoked: 40 [ Other cigarette details: Hx of 1 PPD x 40 Years] Quit status (tobacco): considering quitting Second hand smoke exposure: Yes Smoking risk assessment/counseling performed?: Yes Alcohol intake: former Counseling given: No Counseling given: No Lives independently: Yes Household members: none Marital status: Current occupational status: disabled History of recent travel: No Current gender identity: Female Female Reproductive History: Date of last menstrual period: 10/24/20 Spontaneous abortions: No Vitals/I&O/Wt Last Vital Signs Temp 98.1 F 02/03/22 07:41 Pulse 89 02/03/22 07:41 Resp 20 H 02/03/22 07:41 BP 117/74 02/03/22 07:41 Pulse Ox 95 02/03/22 07:41 Weight last 48 hrs Weight 250 lb Weight 250 lb Physical Exam Narrative: The patient is an obese female supine in bed. Her speech is slurred and she nods off before completely answering questions. She holds her left leg internally rotated with flexion at the knee. She will flex and extend her left toes. Left lower extremity sensation is grossly intact to light touch. I cannot feel a good left dorsalis pedis or tibialis posterior pulse although her toes are well-perfused. She has a previous right below-knee amputation Urinary Catheter Management: Alcantara: Cath Placed During This Visit: yes Reason for Continuing Indwelling Catheter: Required Immobilization for Trauma or Surgery or Anesthesia Urinary Catheter Date of Insertion: 02/03/22 Urinary Catheter Time of Insertion: 03:45 Data : 02/03/22 02:15 02/03/22 02:15 Xray Ortho: My impression: A single lateral radiograph of the left distal femur is reviewed showing what appears to be a spiral supracondylar femur fracture. A&P Assessment and plan (1) Closed femur fracture: The patient has a displaced spiral a supracondylar femur fracture identified on a single radiograph. I will need an AP radiograph to fully determine the characteristics of the fracture. I suspect this will be an open reduction and internal fixation with a distal femoral locking plate. More definitive plans can be made once x-rays are reviewed. I discussed the need for surgery with the patient. She has considerable pain. She has a previous right lower extremity below-knee amputation and will require functioning left to regain any semblance of a ambulation. We will proceed with surgery once a OR plan is made. Status: Acute Qualifiers: Encounter type: initial encounter Femur location: unspecified portion of femur Fracture morphology: unspecified fracture morphology Laterality: left Qualified Code(s): S72.92XA - Unspecified fracture of left femur, initial encounter for closed fracture Coding Level of Care Code Acute Strategic Planning Analyst for [facility] Diagnoses Closed femur fracture S72.92XA Encounter type: initial encounter Femur location: unspecified portion of femur Fracture morphology: unspecified fracture morphology Laterality: left
--- NOTE | 2022-02-03 08:10 | PC.PHAR ---
unable to get ahold of pt-medications entered are from what ext med history shows has been filled recently and previous entered med list
[2022-02-03] MEDS: ipratropium-albuterol 3 mL Neb INHALATION ×3 (08:51→20:13)
--- NOTE | 2022-02-03 08:55 | XR_ITS ---
WS: [id number] FEMUR LEFT TECHNIQUE: 2 views of the left femur CLINICAL INFORMATION: fracture COMPARISON: February 03, 2022 FINDINGS: Osteopenia. Comminuted angulated and rotated fracture involving the distal 3rd femoral diaphysis. Sof t tissue edema. XR/XR femur LT 1V [id number] IMPRESSION: Comminuted displaced distal 3rd femoral shaft fracture described above.
--- NOTE | 2022-02-03 09:13 | P.PN_ITS ---
Subjective Subjective: Patient was seen and examined this morning, she was deep asleep.Her vitals and labs have been reviewed. No acute events overnight. Medications: Medication Review Details: Generic Name Dose Route Start Last Admin Trade Name Kiet PRN Reason Stop Dose Admin Albuterol/Ipratrop ium 3 ml 02/03/22 03:11 02/03/22 08:51 Ipratropium-Albu terol 3 Ml Neb INHALATION 3 ml Q6H.RESPIRATORY S CH Administration Vitals/I&O/Wt Last Vital Signs Temp 98.1 F 02/03/22 07:41 Pulse 76 02/03/22 08:53 Resp 18 02/03/22 08:53 BP 117/74 02/03/22 07:41 Pulse Ox 94 02/03/22 08:53 Weight last 48 hrs Weight 113.398 kg Weight 113.398 kg Physical Exam Const: COMMON NORMALS: patient oriented x3 HENMT: COMMON NORMALS: normocephalic and atraumatic HEAD & SCALP: normocephalic and atraumatic Resp: COMMON NORMALS: normal respiratory effort, No retractions, No use of accessory muscles and clear to auscultation bilaterally EFFORT & INSPECTION: Yes symmetric chest movement AUSCULTATION: clear to auscultation bilaterally Cardio: COMMON NORMALS: regular rate, regular rhythm, S1 normal heart sound present, S2 normal heart sound present, No gallops present (Cardio), No murmurs present (Cardio), No rub (Cardio) and Peripheral pulses 2+ throughout RATE: regular rate RHYTHM: regular rhythm HEART SOUNDS: S1 normal heart sound present and S2 normal heart sound present PERIPHERAL PULSES: Peripheral pulses 2+ throughout GI: COMMON NORMALS: Normal to inspection, nondistended, normoactive bowel sounds present, Soft to palpation, non-tender, No hepatosplenomegaly present and no masses AUSCULTATION: Yes normoactive bowel sounds PALPATION: Yes Soft to palpation and Yes No hepatosplenomegaly present RECTAL EXAM: deferred Neuro: COMMON NORMALS: patient oriented x3 Urinary Catheter Management: Alcantara: Cath Placed During This Visit: yes Reason for Continuing Indwelling Catheter: Required Immobilization for Trauma or Surgery or Anesthesia Urinary Catheter Date of Insertion: 02/03/22 Urinary Catheter Time of Insertion: 03:45 Data : 02/03/22 02:15 02/03/22 02:15 A&P Assessment and plan (1) Closed femur fracture: Left distal femur fracture with displacement and angulation after mechanical fall trying to get onto the bed. Pending orthopedic assessment and plans. She is interested in having the fracture repaired. She is overall not mobile, more so recently, but this does not appear to be limited by her respiratory status, and without any reports of anginal discomfort, more so by generalized weakness, deconditioning and functional decline. She otherwise reports to be in close to baseline state of health. Some blood work is still pending, but overall does not appear that additional optimization would be of benefit before proceeding with surgical repair if this is deemed needed and agreed to. She does appear to be on intermittent steroids for COPD, monitor for adrenal insufficiency. Otherwise some increased risk of surgical site infection. N.p.o. and for DVT prophylaxis for now SCDs alone given description of possible difficulty of later today. Status: Acute Qualifiers: Encounter type: initial encounter Femur location: unspecified portion of femur Fracture morphology: unspecified fracture morphology Laterality: left Qualified Code(s): S72.92XA - Unspecified fracture of left femur, initial encounter for closed fracture (2) Multiple falls: Recently generalized weakness, more difficulty with getting around, ambulating, so which she states has to do with her not keeping him depressed easily due to sweat, but otherwise also states has been having to crawl at home to get around. PT, OT assessment postoperatively. Case management consultation. Status: Acute Plan Chronic pain syndrome COPD DDD GERD Hepatitis C Smoking addiction, states she is trying to quit Pulmonary hypertension PVD R BKA Schizoaffective disorder, bipolar type Her other chronic medical conditions noted Requested her home medications to be updated. Please reconcile once this has been done. Attestations Medical Necessity Statement*: Patient is to be in hospital for management of Left distal femur fracture. Coding Level of Care Code Acute Laborer Pipelines for [facility] Fwd Exam Detailed Diagnoses Closed femur fracture S72.92XA Encounter type: initial encounter Femur location: unspecified portion of femur Fracture morphology: unspecified fracture morphology Laterality: left Multiple falls R29.6
[2022-02-03] MEDS: morphine 4 mg/mL SDV 1 mL 2 MG IVP ×5 (10:24→23:20)
--- NOTE | 2022-02-03 12:54 | PC.CHAP ---
Pastoral Care Encounter/Spiritual Assessment Type of Contact [] Declined meter tester primary visit [] Patient/Family/Request visit [] Outpatient visit [] Follow-up visit [] Physician referral [] Code/Alert [x] Routine visit [] Staff referral [] Actively dying [] Patient sleeping [] Family support [] [] Out of room [] Palliative care [] [] Receiving care in room [] Pre-surgical visit [] Trauma [] Long length of stay [] ICU visit [] Other: Relational/Emotional Strength [x] Patient feels connected with others/family/visitors/staff [] Distress [] Loneliness/isolation [] Abandonment Spirituality of Patient [x] Person of Love [] Attends Bahai of their Love [x] Believes in Prayer [] Reads Bible or Nondenominational materials [] There are Spiritual issues to be addressed Deputy Director Interventions [x] Prayer [x] Active listening [x] Non-anxious presence [x] Spiritual/emotional support [] Crisis/trauma care [] Spiritual counseling [] Bereavement support [] Provided bereavement packet [] Provided Bible/devotional materials [] Provided toy/stuffed animal, coloring book to patient or family member [] Provided Communion [] Anointing/[place] [] Salvation [x]x Completed spiritual assessment [] Other: Impact on Illness or Injury [] Angry [] Fearful [] Anxious [] Often cries [] Exhaustion [] Unable to work [] Unable to attend spiritism [] Unable to walk/stand [] Unable to read [] Unable to drive [] Unable to eat/drink [] Unable to sleep [] Unable to be with family [] Patient intubated [] Other: Summary patient in pain Time spent with patient 10 min
[2022-02-03] MEDS: acetaminophen 325 mg Tablet 650 MG PO (20:42)
[2022-02-04] VITALS (23 sets, daily range): BP systolic 122–194; BP diastolic 81–148; PULSE 78–112; RESP 15–29; TEMP 36.2–36.9; O2SAT 89–97
--- NOTE | 2022-02-04 | SCC_ITS ---
Procedure done: Open reduction internal fixation left distal femur 60.7 seconds of fluoroscopic guidance, for a cumulative dose of 3.19 mGy, was provided to Dr. Carrasco by the radiology department. C-arm images of the LEFT femur were saved for the patient's permanent record. [facility]ITALHenrik
[2022-02-04] MEDS: ipratropium-albuterol 3 mL Neb INHALATION ×3 (02:49→19:59)
[2022-02-04] MEDS: morphine 4 mg/mL SDV 1 mL 2 MG IVP ×5 (03:06→22:33)
[2022-02-04 05:30] LABS: Basophils # 0.1 10^3/uL (0.0-0.1); Basophils % 0.5 %; Eosinophils # 0.1 10^3/uL (0.0-0.8); Eosinophils % 1.3 %; Hematocrit 32.6 % (37.0-47.0); Lymphocytes # 1.3 10^3/uL (0.8-4.8); Lymphocytes % 12.3 %; Mean Corpuscular HGB Conc 33.7 g/dL (30.0-36.0); Mean Corpuscular Hemoglobin 29.6 pg (28.0-34.0); Mean Corpuscular Volume 87.6 fl (81-99); Mean Platelet Volume 8.9 fL (7.4-10.4); Monocytes # 1.1 10^3/uL (0.2-0.9); Monocytes % 10.4 %; Neutrophils # 7.78 10^3/uL (1.8-7.7); Neutrophils % 74.9 %; Nucleated Red Blood Cells % 0 %; Platelet Count 276 10^3/cmm (130-400); Red Blood Count 3.72 10^6/uL (4.1-5.3); Red Cell Distribution Width 13.1 % (12.1-15.1); White Blood Count 10.4 10^3/uL (4.0-10.0)
[2022-02-04 05:52] LABS: Alanine Aminotransferase 16 U/L (0-33); Albumin Level 3.7 g/dL (3.5-5.2); Alkaline Phosphatase 103 IU/L (35-105); Anion Gap 14.9 (5-19); Aspartate Amino Transferase 23 U/L (0-32); Blood Urea Nitrogen 11 mg/dL (6-20); Calcium 8.6 mg/dL (8.5-10.5); Carbon Dioxide 24 mmol/L (22-29); Chloride 100 mmol/L (98-107); Glomerular Filtration Rate 102.3 mL/min (90-130); Glucose 180 mg/dL (65-115); Osmolality Calculated 284 mOsm/kg (285-295); Potassium 3.9 mmol/L (3.5-5.1); Sodium 135 mmol/L (136-145); Total Bilirubin 0.4 mg/dL (0.15-1.2); Total Protein 6.7 g/dL (6.6-8.7)
--- NOTE | 2022-02-04 08:05 | PC.NURSE ---
Patient complains of tailbone pain during shift report. Advised patient that we could slightly tilt her to her side and patient refused stating that it hurt more to move. Discussed with patient importance of pressure relief measures and advised patient that her pain medication may not resolve her tailbone pain.
--- NOTE | 2022-02-04 11:44 | PC.NURSE ---
Patient transported to surgery via bed at this time.
[2022-02-04] MEDS: ceFAZolin 2,000 MG in sodium chloride 0.9% (plus) 50 ML 100 MG IV (12:00)
--- NOTE | 2022-02-04 12:01 | P.PN_ITS ---
Subjective Subjective: Still complains of left leg pain.. Ready to proceed with surgery Vitals/I&O/Wt Last Vital Signs Temp 98.4 F 02/04/22 11:53 Pulse 87 02/04/22 11:55 Resp 17 02/04/22 11:55 BP 140/82 02/04/22 11:55 Pulse Ox 92 02/04/22 11:55 02/03/22 02/04/22 02/04/22 22:59 06:59 14:59 Intake Total 500 / 740 0 / 0 Output Total 800 / 800 775 / 1575 Balance -800 / -560 -275 / -835 0 / 0 Weight last 48 hrs Weight 250 lb Weight 250 lb Physical Exam Narrative: Lower extremity in traction. Palpable dorsalis pedis pulse. Flexes and extends left toes. Urinary Catheter Management: Alcantara: Cath Placed During This Visit: yes Reason for Continuing Indwelling Catheter: Perioperative Use in Selected Surgeries Urinary Catheter Date of Insertion: 02/03/22 Urinary Catheter Time of Insertion: 03:45 Data : 02/04/22 05:03 02/04/22 05:03 A&P Assessment and plan (1) Closed femur fracture: Patient afforded opportunity ask questions. Agrees to surgical stabilization. We will head to the operating room for open reduction internal fixation left distal femur fracture Status: Acute Qualifiers: Encounter type: initial encounter Femur location: unspecified portion of femur Fracture morphology: unspecified fracture morphology Laterality: left Qualified Code(s): S72.92XA - Unspecified fracture of left femur, initial encounter for closed fracture Attestations Medical Necessity Statement*: Surgery today. Will need senior care placement. Coding Level of Care Code Acute Electrolysis Investigator for [facility] Diagnoses Closed femur fracture S72.92XA Encounter type: initial encounter Femur location: unspecified portion of femur Fracture morphology: unspecified fracture morphology Laterality: left
--- NOTE | 2022-02-04 13:20 | P.PN_ITS ---
Subjective Subjective: Patient was seen and examined this morning, complaining of lt leg pain,needed extra dose of morphine. Due for surgery today. Medications: Medication Review Details: Generic Name Dose Route Start Last Admin Trade Name Kiet PRN Reason Stop Dose Admin Albuterol/Ipratrop ium 3 ml 02/03/22 03:11 02/03/22 08:51 Ipratropium-Albu terol 3 Ml Neb INHALATION 3 ml Q6H.RESPIRATORY S CH Administration Vitals/I&O/Wt Last Vital Signs Temp 98.4 F 02/04/22 11:53 Pulse 87 02/04/22 11:55 Resp 17 02/04/22 11:55 BP 140/82 02/04/22 11:55 Pulse Ox 92 02/04/22 11:55 02/03/22 02/04/22 02/04/22 22:59 06:59 14:59 Intake Total 500 / 740 0 / 0 Output Total 800 / 800 775 / 1575 Balance -800 / -560 -275 / -835 0 / 0 Weight last 48 hrs Weight 113.398 kg Weight 113.398 kg Physical Exam Const: COMMON NORMALS: patient oriented x3 HENMT: COMMON NORMALS: normocephalic and atraumatic HEAD & SCALP: normocephalic and atraumatic Resp: COMMON NORMALS: normal respiratory effort, No retractions, No use of accessory muscles and clear to auscultation bilaterally EFFORT & INSPECTION: Yes symmetric chest movement AUSCULTATION: clear to auscultation bilaterally Cardio: COMMON NORMALS: regular rate, regular rhythm, S1 normal heart sound present, S2 normal heart sound present, No gallops present (Cardio), No murmurs present (Cardio), No rub (Cardio) and Peripheral pulses 2+ throughout RATE: regular rate RHYTHM: regular rhythm HEART SOUNDS: S1 normal heart sound present and S2 normal heart sound present PERIPHERAL PULSES: Peripheral pulses 2+ throughout GI: COMMON NORMALS: Normal to inspection, nondistended, normoactive bowel sounds present, Soft to palpation, non-tender, No hepatosplenomegaly present and no masses AUSCULTATION: Yes normoactive bowel sounds PALPATION: Yes Soft to palpation and Yes No hepatosplenomegaly present RECTAL EXAM: deferred Neuro: COMMON NORMALS: patient oriented x3 Urinary Catheter Management: Alcantara: Cath Placed During This Visit: yes Reason for Continuing Indwelling Catheter: Perioperative Use in Selected Surgeries Urinary Catheter Date of Insertion: 02/03/22 Urinary Catheter Time of Insertion: 03:45 Data : 02/04/22 05:03 02/04/22 05:03 A&P Assessment and plan (1) Closed femur fracture: Left distal femur fracture with displacement and angulation after mechanical fall trying to get onto the bed. Pending orthopedic assessment and plans. She is interested in having the fracture repaired. She is overall not mobile, more so recently, but this does not appear to be limited by her respiratory status, and without any reports of anginal discomfort, more so by generalized weakness, deconditioning and functional decline. She otherwise reports to be in close to baseline state of health. Some blood work is still pending, but overall does not appear that additional optimization would be of benefit before proceeding with surgical repair if this is deemed needed and agreed to. She does appear to be on intermittent steroids for COPD, monitor for adrenal insufficiency. Otherwise some increased risk of surgical site infection. N.p.o. and for DVT prophylaxis for now SCDs alone given description of possible difficulty of later today. Status: Acute Qualifiers: Encounter type: initial encounter Femur location: unspecified portion of femur Fracture morphology: unspecified fracture morphology Laterality: left Qualified Code(s): S72.92XA - Unspecified fracture of left femur, initial encounter for closed fracture (2) Multiple falls: Recently generalized weakness, more difficulty with getting around, ambulating, so which she states has to do with her not keeping him depressed easily due to sweat, but otherwise also states has been having to crawl at home to get around. PT, OT assessment postoperatively. Case management consultation. Status: Acute Plan Chronic pain syndrome COPD DDD GERD Hepatitis C Smoking addiction, states she is trying to quit Pulmonary hypertension PVD R BKA Schizoaffective disorder, bipolar type Her other chronic medical conditions noted Requested her home medications to be updated. Please reconcile once this has been done. Attestations Medical Necessity Statement*: Patient needs to be in hospital for the management of lt distal femur fracture. Coding Level of Care Code Acute Foundry Helper for Dorcas Fwd Diagnoses Closed femur fracture S72.92XA Encounter type: initial encounter Femur location: unspecified portion of femur Fracture morphology: unspecified fracture morphology Laterality: left Multiple falls R29.6
--- NOTE | 2022-02-04 13:41 | ANES.PREANE2 ---
Pre-Anesthetic Assessment Height/Weight: Height 1.75 m Weight 113.398 kg Temp Pulse Resp BP Pulse Ox 98.4 F 87 17 140/82 92 02/04/22 11:53 02/04/22 11:55 02/04/22 11:55 02/04/22 11:55 02/04/22 11:55 Preop Diagnosis: Left distal femur fracture Operation Date: 02/04/22 12:00 Proposed Procedures p ORIF Femur(Left) - Perico Carrasco MD Familial anesthetic complications: None Was Beta Thomas taken within 24 hours: N/A Was Clonidine taken within 24 hours: N/A Last intake: Intake Last Liquid Date 02/03/22 Last Liquid Time 20:40 Last Solid Date 02/03/22 Last Solid Time 12:30 Social Tobacco and No alcohol Multisubstance abuse hx Exam alert, oriented x 3 and regular rate & rhythm Airway Submandibular: within normal limits Cervical ROM: within normal limits Mallampati: Class II Dentition: false Pulmonary Chronic Obstructive Pulmonary Disease Hepatic Hepatitis (C) Metabolic Morbid Obesity Neuropsych Anxiety and Depression Schizoaffective Anesthetic Plan ASA status: 3 Anesthesia: Choice Medications/Allergies Home Medications Medication Instructions Recorded Confirmed Last Taken Type miscellaneous medical supply See Rx Instructions MISCELLANEOUS 11/28/19 02/03/22 Unknown Rx .COMPLEX #1 each epinephrine 0.3 mg/0.3 mL 0.3 mg (0.3 mL) IM Q15M PRN #2 each 01/13/21 02/03/22 Unknown Rx injection, auto-injector (EpiPen 2-Reji) miscellaneous medical supply See Rx Instructions MISCELLANEOUS 01/13/21 02/03/22 Unknown Rx .COMPLEX #1 ea bupropion HCl 150 mg tablet,12 hr 300 mg PO QAM #60 tab 01/03/22 02/03/22 Unknown Rx sustained-release fluoxetine 40 mg capsule 80 mg PO DAILY #60 cap 01/03/22 02/03/22 Unknown Rx lamotrigine 100 mg tablet 150 mg PO QAM #45 tab 01/03/22 02/03/22 Unknown Rx quetiapine 300 mg tablet 600 - 750 mg PO BEDTIME #75 tab 01/03/22 02/03/22 Unknown Rx varenicline 1 mg tablet (Chantix 1 mg PO BID #56 tab 01/03/22 02/03/22 Unknown Rx Continuing Month Box) albuterol sulfate 2.5 mg (3 mL) INHALATION Q4H PRN 01/06/22 02/03/22 Unknown Rx #180 ml albuterol sulfate 90 mcg/actuation 2 puff INHALATION Q6H PRN 30 Days 01/06/22 02/03/22 Unknown Rx aerosol inhaler #18 gm budesonide 0.5 mg/2 mL suspension 0.5 mg (2 mL) INHALATION BID #60 ml 01/06/22 02/03/22 Unknown Rx for nebulization dextromethorphan polistirex 30 10 ml PO Q12H PRN #89 ml 01/06/22 02/03/22 Unknown Rx mg/5 mL oral susp ext.release 12hr famotidine 20 mg tablet 20 mg PO BID 30 Days #60 tab 01/06/22 02/03/22 Unknown Rx potassium chloride 20 mEq 20 meq PO DAILY 30 Days #30 tab 01/06/22 02/03/22 Unknown Rx tablet,extended release(part/cryst) pregabalin 200 mg capsule 200 mg PO TID 30 Days #90 cap 01/06/22 02/03/22 Unknown Rx vits no.129-ferrous fum 1 tab PO DAILY 90 Days #90 tab 01/06/22 02/03/22 Unknown Rx 27 mg iron-folic acid 800 mcg tablet ( One Daily) promethazine 12.5 mg tablet 12.5 mg PO DAILY PRN 30 Days #30 01/06/22 02/03/22 Unknown Rx tab umeclidinium 62.5 mcg-vilanterol 1 inh INHALATION DAILY 30 Days #60 01/06/22 02/03/22 Unknown Rx 25 mcg/actuation powdr for ea inhalation (Anoro Ellipta) ibuprofen 800 mg tablet 800 mg PO TID PRN 30 Days #90 tab 01/14/22 02/03/22 Unknown Rx Allergies Allergy/AdvReac Type Severity Reaction Status Date / Time Penicillins Allergy ALGY-Rash Verified 01/06/22 13:06 Current Medications Generic Name Dose Route Start Last Admin Trade Name Freq PRN Reason Stop Dose Admin Acetaminophen 650 mg 02/03/22 03:11 02/03/22 20:42 Acetaminophen 325 Mg Tablet PO 650 mg Q6H PRN Administration Mild/Mod Pain Or Temp >/= 101 Albuterol/Ipratropium 3 ml 02/03/22 03:11 02/04/22 08:34 Ipratropium-Albuterol 3 Ml Neb INHALATION 3 ml Q6H.RESPIRATORY DONALD Administration Morphine Sulfate 2 mg 02/03/22 20:24 02/04/22 09:55 Morphine 4 Mg/Ml Sdv 1 Ml IVP 2 mg Q2H PRN Administration SEVERE PAIN PFSH Anesthesia Medical History Amphetamine addiction Anxiety Aspiration of foreign body in respiratory tract Borderline personality disorder Chronic idiopathic pain syndrome Chronic pain syndrome COPD (chronic obstructive pulmonary disease) DDD (degenerative disc disease), cervical DJD (degenerative joint disease), lumbar GERD (gastroesophageal reflux disease) Hepatitis C, chronic History of intravenous drug abuse Interstitial lung disease Nicotine dependence, cigarettes, with other nicotine-induced disorders Opioid dependence, in remission Other stimulant dependence, in remission Partial small bowel obstruction Psychiatric care Pulmonary hypertension PVD (peripheral vascular disease) with claudication Respiratory failure with hypoxia Schizoaffective disorder, bipolar type Surgical History H/O tubal ligation Hx of BKA S/P cholecystectomy S/P tonsillectomy Family History Other CAD (coronary artery disease) Diabetes Lung disease Stroke Social History Smoking and tobacco status: current every day smoker cigarettes Years cigarettes smoked: 40 [ Other cigarette details: Hx of 1 PPD x 40 Years] Quit status (tobacco): considering quitting Second hand smoke exposure: Yes Smoking risk assessment/counseling performed?: Yes Alcohol intake: former Counseling given: No Counseling given: No Lives independently: Yes Household members: none Marital status: Current occupational status: disabled History of recent travel: No Current gender identity: Female Female Reproductive History Date of last menstrual period: 10/24/20 Spontaneous abortions: No Data Anesthesia : 02/04/22 05:03 02/04/22 05:03 Short CBC 02/03/22 02/04/22 Range/Units 02:15 05:03 WBC 10.1 H 10.4 H (4.0-10.0) 10^3/uL Hgb 11.4 L 11.0 L (11.5-15.3) g/dL Hct 34.0 L 32.6 L (37.0-47.0) % MCV 88.1 87.6 (81-99) fl Plt Count 308 276 (130-400) 10^3/cmm Neut % (Auto) 68.1 74.9 % Neut # (Auto) 6.85 7.78 H (1.8-7.7) 10^3/uL BMP 02/03/22 02/04/22 02:15 05:03 Sodium 136 135 L Potassium 4.0 3.9 Chloride 101 100 Carbon Dioxide 23 24 BUN 13 11 Creatinine 0.9 0.6 Glucose 131 H 180 H Calcium 8.9 8.6 Liver Function 02/03/22 02/04/22 Range/Units 02:15 05:03 Total Bilirubin 0.4 0.4 (0.15-1.2) mg/dL AST 31 23 (0-32) U/L ALT 18 16 (0-33) U/L Alkaline Phosphatase 106 H 103 (35-105) IU/L Albumin 4.0 3.7 (3.5-5.2) g/dL Coags 02/03/22 02:15 PT 14.40 INR 1.09 Cardiac Studies: Echocardiogram 05/09/21
[2022-02-04] MEDS: sodium chloride 0.9% 100 mL Bag XX (13:48)
[2022-02-04] MEDS: tobramycin 40 mg/mL SDV 2mL 160 MG INJECTION (13:48)
--- NOTE | 2022-02-04 14:04 | XR_ITS ---
WS: [id number] Left femur and thigh, C-arm fluoroscopy view, 02/04/2022 Clinical Data: OR PICS Comparison: Left thigh and femur, 02/03/2022. Findings: Dr. Carrasco repaired the distal left femoral fracture with a lateral plate and multiple screws. XR/XR femur LT min 2V* [id number] Impression: Internal fixation of distal left femoral fracture.
[2022-02-04] MEDS: HYDROmorphone 1 mg/mL INJ 1 mL 0.5 MG IVP (14:30)
--- NOTE | 2022-02-04 15:23 | P.OP_ITS ---
Operative Report Date of procedure: February 04, 2022 Pre-op diagnosis: Preop Diagnosis Left distal femur fracture Post-op diagnosis: same Post-op diagnosis: Same Procedure done: Open reduction internal fixation left distal femur Implants: Dulce Maria lateral 10 hole distal femoral locking plate Pathology: none sent Surgeon: Perico Carrasco Anesthesia: General Estimated blood loss (mL): 300 Findings: The patient had a spiral fracture of the left distal femur at the metaphyseal di aphyseal junction Condition: stable Disposition: PACU Procedure: The patient was taken to the operating room and given 2 g of Ancef. She is prepped and draped in supine position with a bump under the left hip. A timeout was performed. A 12 cm long incision was made from Emani's tubercle proximally along the lateral femur. Dissection was carried down with electrocautery to the fascia roxanne. The Aquamanis cautery was used to establish hemostasis. The fascia was split with blunt and scissors. The cyst lateralis was elevated up off the lateral intermuscular septum. Fracture ends were identified and brought the length and held with a lobster claw reduction clamp. 2 anterior to posterior interfragmentary screws were placed maintaining reduction. A 10 hole plate was then passed subperiosteally along the lateral femur and positioned over the distal femoral condyle. The plate was provisionally held with a K wire through the guide distally. Unicortical screw was placed proximally. Position of the plate was verified with x-ray 1 distal nonlocking screw was used to secure the plate to the lateral femur and an additional 4 distal locking screws were placed distal to the fracture and 5 locking screws placed proximal to the fracture. Intraoperative imaging showed satisfactory alignment of the fracture. The wound was irrigated with antibiotic solution. The vastus lateralis was then tacked back to the intermuscular septum with 0 Vicryl. The fascia roxanne was closed with a running 1-0 Stratafix. The subcutaneous tissues were closed with a running 2-0 Statafix. The skin was closed with a running 4-0 Stratafix. The incisions were covered with Aquaphor dressing. The patient was taken to recovery room in stable condition.
[2022-02-04 17:27] LABS: Glucose Point of Care 177 mg/dL (70-110)
[2022-02-05] VITALS (17 sets, daily range): BP systolic 117–145; BP diastolic 66–84; PULSE 85–103; RESP 14–22; TEMP 35.7–36.9; O2SAT 89–98
[2022-02-05] MEDS: acetaminophen 1,000 MG/100 ML PIGGYBACK 400 MG IV (02:17)
[2022-02-05] MEDS: ipratropium-albuterol 3 mL Neb INHALATION ×4 (02:57→20:26)
[2022-02-05 03:23] LABS: Basophils % 0.1 %; Hematocrit 32.2 % (37.0-47.0); Hemoglobin 10.7 g/dL (11.5-15.3); Lymphocytes # 1.2 10^3/uL (0.8-4.8); Mean Corpuscular HGB Conc 33.2 g/dL (30.0-36.0); Mean Corpuscular Hemoglobin 29.6 pg (28.0-34.0); Monocytes % 13.3 %; Neutrophils # 11.75 10^3/uL (1.8-7.7); Neutrophils % 77.9 %; Nucleated Red Blood Cells % 0 %; Platelet Count 323 10^3/cmm (130-400); Red Blood Count 3.62 10^6/uL (4.1-5.3); Red Cell Distribution Width 12.9 % (12.1-15.1); White Blood Count 15.1 10^3/uL (4.0-10.0)
[2022-02-05 03:51] LABS: Alanine Aminotransferase 18 U/L (0-33); Albumin Level 3.5 g/dL (3.5-5.2); Alkaline Phosphatase 117 IU/L (35-105); Anion Gap 16.4 (5-19); Aspartate Amino Transferase 32 U/L (0-32); Blood Urea Nitrogen 10 mg/dL (6-20); Calcium 8.5 mg/dL (8.5-10.5); Carbon Dioxide 22 mmol/L (22-29); Chloride 105 mmol/L (98-107); Globulin 3.5 g/dL (1.3-4.6); Glomerular Filtration Rate 126.3 mL/min (90-130); Glucose 147 mg/dL (65-115); Osmolality Calculated 290 mOsm/kg (285-295); Potassium 4.4 mmol/L (3.5-5.1); Sodium 139 mmol/L (136-145); Total Bilirubin 0.4 mg/dL (0.15-1.2)
[2022-02-05] MEDS: HYDROmorphone 1 mg/mL INJ 1 mL IVP ×5 (05:56→22:31)
[2022-02-05 07:01] LABS: Glucose Point of Care 38 mg/dL (70-110)
[2022-02-05 07:01] LABS: Glucose Point of Care 136 mg/dL (70-110)
--- NOTE | 2022-02-05 09:44 | PM.PN ---
Subjective Subjective: Patient responds to voice and answer simple yes/no questions. Vitals/I&O/Wt Last Vital Signs Temp 96.9 F L 02/05/22 08:00 Pulse 90 02/05/22 08:00 Resp 18 02/05/22 08:00 BP 132/84 02/05/22 08:00 Pulse Ox 93 02/05/22 08:00 02/04/22 02/05/22 02/05/22 22:59 06:59 14:59 Intake Total 60 / 110 150 / 260 Output Total 250 / 750 530 / 1280 Balance -190 / -640 -380 / -1020 Weight last 48 hrs Weight 253 lb 8 oz Physical Exam Narrative: Left femur dressings clean and dry. Refuses to move left toes or ankle Urinary Catheter Management: Alcantara: Cath Placed During This Visit: yes Reason for Continuing Indwelling Catheter: Other Urinary Catheter Date of Insertion: 02/03/22 Urinary Catheter Time of Insertion: 03:45 Data : 02/05/22 03:17 02/05/22 03:17 A&P Assessment and plan (1) Status post open reduction with internal fixation of fracture: Patient will be nonambulatory for at least 3 months until fracture radiographically healed. Arrangements will be made for correction placement. Pain control will be issue. She has complaints of pain with even simple palpation of her foot, well distal to the fracture. Status: Acute Attestations Medical Necessity Statement*: Needs placement Coding Level of Care Code Acute Technical Account Executive for [facility] Oliver Diagnoses Status post open reduction with internal fixation of fracture Z98.890; Z87.81
[2022-02-05] MEDS: enoxaparin 40 mg/0.4 mL Syringe SUBCUT (09:52)
--- NOTE | 2022-02-05 14:44 | PC.OT ---
OT EVALUATION ATTEMPTED TWICE THIS P.M. PATIENT WITH EYES CLOSED AT ALL TIMES; YELLING, HELP ME -YELLS/TALK VERY LOUDLY THE ENTIRE CONVERSATION. WHEN ASKED WHAT SHE NEEDS HELP WITH STATED, I DON'T KNOW. WHEN ASKED IF SHE HURT SAYS , [facility] WHEN ASKED WHERE STATES, I DON'T KNOW . STATES SHE IS ABLE TO SEE THERAPIST BUT DOES NOT OPEN EYES.\ IS UNABLE TO FOLLOW ANY DIRECTIONS OR MEANINGFUL CONVERSATION TO PARTICIPATE IN OT EVALUATION AT THIS TIME. EVALUATION TO BE ATTEMPTED AGAIN TOMORROW.
--- NOTE | 2022-02-05 15:49 | PC.NURSE ---
Patient yelling out incomprehensible mumbles. Patient answers Uh-huh to most all questions. Patient took sip of water, held in her mouth, but swallowed appropriately when coached. Attempted to give oxycodone PO to patient X2, patient spit pills out numerous times despite being able to swallow water. Pain medication administered IV.
--- NOTE | 2022-02-05 16:59 | P.PN_ITS ---
Subjective Subjective: Patient was seen and examined this morning, mostly sleepy,we are discussing with her regarding placement.Patient has been extremely agitated this evening,yelling.Geodon will be given. Medications: Medication Review Details: Generic Name Dose Route Start Last Admin Trade Name Kiet PRN Reason Stop Dose Admin Albuterol/Ipratrop ium 3 ml 02/03/22 03:11 02/03/22 08:51 Ipratropium-Albu terol 3 Ml Neb INHALATION 3 ml Q6H.RESPIRATORY S CH Administration Vitals/I&O/Wt Last Vital Signs Temp 96.2 F L 02/05/22 16:00 Pulse 85 02/05/22 16:00 Resp 16 02/05/22 16:00 BP 117/66 02/05/22 16:00 Pulse Ox 93 02/05/22 16:00 02/05/22 02/05/22 02/05/22 06:59 14:59 22:59 Intake Total 150 / 260 50 / 50 Output Total 530 / 1280 Balance -380 / -1020 50 / 50 Weight last 48 hrs Weight 114.986 kg Physical Exam Const: COMMON NORMALS: patient oriented x3 HENMT: COMMON NORMALS: normocephalic and atraumatic HEAD & SCALP: normocephalic and atraumatic Resp: COMMON NORMALS: normal respiratory effort, No retractions, No use of accessory muscles and clear to auscultation bilaterally EFFORT & INSPECTION: Yes symmetric chest movement AUSCULTATION: clear to auscultation bilaterally Cardio: COMMON NORMALS: regular rate, regular rhythm, S1 normal heart sound present, S2 normal heart sound present, No gallops present (Cardio), No murmurs present (Cardio), No rub (Cardio) and Peripheral pulses 2+ throughout RATE: regular rate RHYTHM: regular rhythm HEART SOUNDS: S1 normal heart sound present and S2 normal heart sound present PERIPHERAL PULSES: Peripheral pulses 2+ throughout GI: COMMON NORMALS: Normal to inspection, nondistended, normoactive bowel sounds present, Soft to palpation, non-tender, No hepatosplenomegaly present and no masses AUSCULTATION: Yes normoactive bowel sounds PALPATION: Yes Soft to palpation and Yes No hepatosplenomegaly present RECTAL EXAM: deferred Neuro: COMMON NORMALS: patient oriented x3 Urinary Catheter Management: Alcantara: Cath Placed During This Visit: yes Reason for Continuing Indwelling Catheter: Other Urinary Catheter Date of Insertion: 02/03/22 Urinary Catheter Time of Insertion: 03:45 Data : 02/05/22 03:17 02/05/22 03:17 A&P Assessment and plan (1) Closed femur fracture: Left distal femur fracture with displacement and angulation after mechanical fall trying to get onto the bed. S/P Open reduction internal fixation left distal femur Pain control Bowel Regimen P/T Status: Acute Qualifiers: Encounter type: initial encounter Femur location: unspecified portion of femur Fracture morphology: unspecified fracture morphology Laterality: left Qualified Code(s): S72.92XA - Unspecified fracture of left femur, initial encounter for closed fracture (2) Multiple falls: Recently generalized weakness, more difficulty with getting around, ambulating, so which she states has to do with her not keeping him depressed easily due to sweat, but otherwise also states has been having to crawl at home to get around. PT, OT assessment postoperatively. Case management consultation. Status: Acute Plan Chronic pain syndrome COPD DDD GERD Hepatitis C Smoking addiction, states she is trying to quit Pulmonary hypertension PVD R BKA Schizoaffective disorder, bipolar type Code Status :Full Code DVT PPX: On lovenox Attestations Medical Necessity Statement*: Currently awaiting placement. Coding Level of Care Code Acute Commercial Construction Estimator for [facility] Fwd Exam Detailed Diagnoses Closed femur fracture S72.92XA Encounter type: initial encounter Femur location: unspecified portion of femur Fracture morphology: unspecified fracture morphology Laterality: left Multiple falls R29.6
[2022-02-05] MEDS: ziprasidone 20 mg/mL SDV 5 MG IM (18:06)
[2022-02-05] MEDS: morphine 4 mg/mL SDV 1 mL 2 MG IVP (20:56)
--- NOTE | 2022-02-05 23:12 | XRR_ITS ---
PROCEDURE INFORMATION: Exam: XR Chest Exam date and time: 02/06/2022 1:40 AM Age: 61 years old Clinical indication: Patient HX: New onset of fever. Patient had femur surgery on 02/04/2022. ; Additional info: Confusion, fever TECHNIQUE: Imaging protocol: Radiologic exam of the chest. Views: 1 view. COMPARISON: CR (CHEST, ) 02/03/2022 1:31 AM FINDINGS: Lungs: There are increased linear and interstitial opacities present within the lower hemithoraces bilaterally, findings that may represent atelectasis although bilateral basilar interstitial pneumonitis cannot be entirely excluded. Pleural spaces: There is blunting of left costophrenic recess possibly secondary to a small left pleural effusion. Heart/Mediastinum: Unremarkable. No cardiomegaly. Bones/joints: Unremarkable. XR/XR chest 1V portable [id number] IMPRESSION: 1. Increased linear and interstitial opacities in the lower hemithoraces, findings that may represent a bilateral interstitial pneumonitis. 2. Probable small pleural effusion
[2022-02-06] VITALS (18 sets, daily range): BP systolic 134–149; BP diastolic 81–89; PULSE 97–116; RESP 14–22; TEMP 36.3–37; O2SAT 82–96
[2022-02-06 00:03] LABS: Glucose Point of Care 124 mg/dL (70-110)
[2022-02-06] MEDS: HYDROmorphone 1 mg/mL INJ 1 mL IVP ×7 (01:24→23:22)
[2022-02-06 02:25] LABS: Add Urine Microscopic? YES; Bilirubin Urine 1+ (Negative); Blood Urine 2+ (Negative); Glucose Urine UA Norm (Normal); Ketones Urine 2+ (Negative); Leukocyte Esterase Urine Negative (Negative); Nitrate Urine Negative (Negative); Protein Urine Trace (Negative); Urine Appearance Clear (CLEAR); Urine Color Yellow (Yellow); Urobilinogen Urine 1 mg/dL (Negative); pH Urine 6 (5-7)
[2022-02-06 02:26] LABS: Add Urine Culture? No; Bacteria Urine TRACE /hpf; Calcium Oxalate Crystals Urine 0-4 /hpf; Mucus Urine 1+ /hpf; RBC Urine 0-4 /hpf (0-2); Squamous Epithelial Cell Urine 0-4 /hpf (0-5)
[2022-02-06 03:16] LABS: Basophils % 0.3 %; Eosinophils % 0.1 %; Hemoglobin 10.4 g/dL (11.5-15.3); Lymphocytes # 1.8 10^3/uL (0.8-4.8); Mean Corpuscular HGB Conc 31.5 g/dL (30.0-36.0); Mean Corpuscular Hemoglobin 30.1 pg (28.0-34.0); Mean Corpuscular Volume 95.4 fl (81-99); Mean Platelet Volume 9.3 fL (7.4-10.4); Monocytes # 1.8 10^3/uL (0.2-0.9); Monocytes % 13.2 %; Neutrophils # 9.63 10^3/uL (1.8-7.7); Neutrophils % 71.9 %; Nucleated Red Blood Cells % 0.1 %; Platelet Count 360 10^3/cmm (130-400); Red Blood Count 3.46 10^6/uL (4.1-5.3); Red Cell Distribution Width 13.2 % (12.1-15.1); White Blood Count 13.4 10^3/uL (4.0-10.0)
[2022-02-06 03:38] LABS: Alanine Aminotransferase 14 U/L (0-33); Albumin Level 3.2 g/dL (3.5-5.2); Alkaline Phosphatase 115 IU/L (35-105); Anion Gap 19.1 (5-19); Aspartate Amino Transferase 29 U/L (0-32); Blood Urea Nitrogen 14 mg/dL (6-20); Calcium 8.6 mg/dL (8.5-10.5); Carbon Dioxide 21 mmol/L (22-29); Chloride 103 mmol/L (98-107); Glomerular Filtration Rate 126.3 mL/min (90-130); Glucose 151 mg/dL (65-115); Osmolality Calculated 291 mOsm/kg (285-295); Potassium 4.1 mmol/L (3.5-5.1); Sodium 139 mmol/L (136-145); Total Bilirubin 0.4 mg/dL (0.15-1.2); Total Protein 7.2 g/dL (6.6-8.7)
[2022-02-06 06:39] LABS: Glucose Point of Care 169 mg/dL (70-110)
--- NOTE | 2022-02-06 08:00 | PC.NURSE ---
Patient repetively yelling aloud, no discernible words. Patient does not open eyes when requested. Patient does not respond to questions. Patient follows no commands. After patient was repositioned in bed, her right leg was shaking and she yelled out several times. Again no discernible words. Assessed patient to be in pain.
[2022-02-06] MEDS: ipratropium-albuterol 3 mL Neb INHALATION ×2 (08:41→14:43)
[2022-02-06] MEDS: ziprasidone 20 mg/mL SDV 5 MG IM (10:01)
--- NOTE | 2022-02-06 11:31 | PC.OT ---
OT EVAL ATTEMPTED WITH PHYSICAL THERAPY; UNABLE TO CONDUCT EVAL DUE TO PT'S INABILITY TO RESPOND AND ENGAGE WITH THERAPY; CURRENTLY PT WILL SCREAM OUT CONSTANTLY BUT CANNOT VERBALIZE WHAT SHE NEEDS; WILL ATTEMPT EVAL WHEN PT ABLE TO ENGAGE
[2022-02-06] MEDS: enoxaparin 40 mg/0.4 mL Syringe SUBCUT (11:32)
[2022-02-06 11:41] LABS: Glucose Point of Care 163 mg/dL (70-110)
--- NOTE | 2022-02-06 12:09 | P.PN_ITS ---
Subjective Subjective: Patient was seen and examined this morning continue to have AMS, she is currently yelling and do not engage in verbal communication. Has recived geodon as well as ativan. Is not taking her Pych medications. Medications: Medication Review Details: Generic Name Dose Route Start Last Admin Trade Name Kiet PRN Reason Stop Dose Admin Albuterol/Ipratrop ium 3 ml 02/03/22 03:11 02/03/22 08:51 Ipratropium-Albu terol 3 Ml Neb INHALATION 3 ml Q6H.RESPIRATORY S CH Administration Vitals/I&O/Wt Last Vital Signs Temp 97.9 F 02/06/22 12:00 Pulse 106 H 02/06/22 12:00 Resp 15 02/06/22 12:00 BP 139/89 02/06/22 12:00 Pulse Ox 96 02/06/22 12:00 02/05/22 02/06/22 02/06/22 22:59 06:59 14:59 Intake Total 0 / 50 0 / 0 Output Total 1800 / 1800 Balance -1800 / -1750 0 / 0 Weight last 48 hrs Weight 115.485 kg Weight 114.986 kg Physical Exam Const: COMMON NORMALS: patient oriented x3 HENMT: COMMON NORMALS: normocephalic and atraumatic HEAD & SCALP: normocephalic and atraumatic Resp: COMMON NORMALS: normal respiratory effort, No retractions, No use of accessory muscles and clear to auscultation bilaterally EFFORT & INSPECTION: Yes symmetric chest movement AUSCULTATION: clear to auscultation bilaterally Cardio: COMMON NORMALS: regular rate, regular rhythm, S1 normal heart sound present, S2 normal heart sound present, No gallops present (Cardio), No murmurs present (Cardio), No rub (Cardio) and Peripheral pulses 2+ throughout RATE: regular rate RHYTHM: regular rhythm HEART SOUNDS: S1 normal heart sound present and S2 normal heart sound present PERIPHERAL PULSES: Peripheral pulses 2+ throughout GI: COMMON NORMALS: Normal to inspection, nondistended, normoactive bowel sounds present, Soft to palpation, non-tender, No hepatosplenomegaly present and no masses AUSCULTATION: Yes normoactive bowel sounds PALPATION: Yes Soft to palpation and Yes No hepatosplenomegaly present RECTAL EXAM: deferred Neuro: COMMON NORMALS: patient oriented x3 Urinary Catheter Management: Alcantara: Cath Placed During This Visit: yes Reason for Continuing Indwelling Catheter: Other Urinary Catheter Date of Insertion: 02/03/22 Urinary Catheter Time of Insertion: 03:45 Data : 02/06/22 02:47 02/06/22 02:47 A&P Assessment and plan (1) Closed femur fracture: Left distal femur fracture with displacement and angulation after mechanical fall trying to get onto the bed. S/P Open reduction internal fixation left distal femur Pain control Bowel Regimen P/T Status: Acute Qualifiers: Encounter type: initial encounter Femur location: unspecified portion of femur Fracture morphology: unspecified fracture morphology Laterality: left Qualified Code(s): S72.92XA - Unspecified fracture of left femur, initial encounter for closed fracture (2) Multiple falls: Recently generalized weakness, more difficulty with getting around, ambulating, so which she states has to do with her not keeping him depressed easily due to sweat, but otherwise also states has been having to crawl at home to get around. PT, OT assessment postoperatively. Case management consultation. Status: Acute (3) Borderline personality disorder: Status: Acute (4) Schizoaffective disorder, bipolar type: Status: Acute (5) Psychiatric care: Status: Acute (6) Hepatitis C, chronic: Status: Acute Qualifiers: Hepatic coma status: without hepatic coma Qualified Code(s): B18.2 - Chronic viral hepatitis C (7) Status post open reduction with internal fixation of fracture: Status: Acute (8) Altered mental status: AMS more likely 2/2 to underlying pysch issues. U/A Xray chest Blood Culture ABG Possible Pysch Consult Continue geodon, ativan as needed. Status: Acute Plan Chronic pain syndrome COPD DDD GERD Hepatitis C Smoking addiction, states she is trying to quit Pulmonary hypertension PVD R BKA Schizoaffective disorder, bipolar type Code Status :Full Code DVT PPX: On lovenox Attestations Medical Necessity Statement*: Patient needs to be in hospital for the management of AMS. 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
[2022-02-06] MEDS: LORazepam 2 mg/mL INJ 1 mL IVP ×2 (14:24→20:55)
[2022-02-06 18:28] LABS: Glucose Point of Care 138 mg/dL (70-110)
[2022-02-06 23:51] LABS: Glucose Point of Care 144 mg/dL (70-110)
[2022-02-07] VITALS (13 sets, daily range): BP systolic 134–147; BP diastolic 84–90; PULSE 86–107; RESP 16–28; TEMP 36.7–37.6; O2SAT 90–97
[2022-02-07] MEDS: LORazepam 2 mg/mL INJ 1 mL IVP ×3 (02:03→20:26)
[2022-02-07] MEDS: HYDROmorphone 1 mg/mL INJ 1 mL IVP ×3 (04:55→22:01)
[2022-02-07 06:30] LABS: Glucose Point of Care 139 mg/dL (70-110)
[2022-02-07] MEDS: ipratropium-albuterol 3 mL Neb INHALATION ×3 (08:11→20:45)
[2022-02-07] MEDS: enoxaparin 40 mg/0.4 mL Syringe SUBCUT (09:40)
--- NOTE | 2022-02-07 11:11 | PC.OT ---
OT ATTEMPT EVALUATION THIS DATE, HOWEVER, PER NURSING AND OBSERVATION PATIENT IS UNABLE TO FUNCTIONALLY PARTICIPATE. ONLY FORM OF COMMUNICATION IS MOANING/YELLING AND DESPITE SENSORY TECHNIQUES IN AN ATTEMPT TO AROUSE, UNSUCCESSFUL. WILL ATTEMPT AGAIN TOMORROW.
[2022-02-07 11:58] LABS: Glucose Point of Care 162 mg/dL (70-110)
--- NOTE | 2022-02-07 14:46 | P.PN_ITS ---
Subjective Subjective: Patient was seen and examined this morning continue to have AMS, she is currently yelling and do not engage in verbal communication. Medications: Medication Review Details: Generic Name Dose Route Start Last Admin Trade Name Kiet PRN Reason Stop Dose Admin Albuterol/Ipratrop ium 3 ml 02/03/22 03:11 02/03/22 08:51 Ipratropium-Albu terol 3 Ml Neb INHALATION 3 ml Q6H.RESPIRATORY S CH Administration Vitals/I&O/Wt Last Vital Signs Temp 99.6 F 02/07/22 11:49 Pulse 96 02/07/22 14:28 Resp 19 H 02/07/22 14:25 BP 135/84 02/07/22 11:49 Pulse Ox 95 02/07/22 14:25 02/06/22 02/07/22 02/07/22 22:59 06:59 14:59 Intake Total 0 / 0 Output Total 650 / 1250 Balance 0 / -600 -650 / -1250 Weight last 48 hrs Weight 115.485 kg Physical Exam Const: COMMON NORMALS: patient oriented x3 HENMT: COMMON NORMALS: normocephalic and atraumatic HEAD & SCALP: normocephalic and atraumatic Resp: COMMON NORMALS: normal respiratory effort, No retractions, No use of accessory muscles and clear to auscultation bilaterally EFFORT & INSPECTION: Yes symmetric chest movement AUSCULTATION: clear to auscultation bilaterally Cardio: COMMON NORMALS: regular rate, regular rhythm, S1 normal heart sound present, S2 normal heart sound present, No gallops present (Cardio), No murmurs present (Cardio), No rub (Cardio) and Peripheral pulses 2+ throughout RATE: regular rate RHYTHM: regular rhythm HEART SOUNDS: S1 normal heart sound present and S2 normal heart sound present PERIPHERAL PULSES: Peripheral pulses 2+ throughout GI: COMMON NORMALS: Normal to inspection, nondistended, normoactive bowel sounds present, Soft to palpation, non-tender, No hepatosplenomegaly present and no masses AUSCULTATION: Yes normoactive bowel sounds PALPATION: Yes Soft t o palpation and Yes No hepatosplenomegaly present RECTAL EXAM: deferred Neuro: COMMON NORMALS: patient oriented x3 Urinary Catheter Management: Alcantara: Cath Placed During This Visit: yes Reason for Continuing Indwelling Catheter: Required Immobilization for Trauma or Surgery or Anesthesia Urinary Catheter Date of Insertion: 02/03/22 Urinary Catheter Time of Insertion: 03:45 Data : 02/06/22 02:47 02/06/22 02:47 Micro: Microbiology 02/07/22 06:19 Blood Culture - Preliminary Blood SPECIMEN COLLECTED 02/07/22 06:25 Blood Culture - Preliminary Blood SPECIMEN COLLECTED A&P Assessment and plan (1) Closed femur fracture: Left distal femur fracture with displacement and angulation after mechanical fall trying to get onto the bed. S/P Open reduction internal fixation left distal femur Pain control Bowel Regimen P/T Status: Acute Qualifiers: Encounter type: initial encounter Femur location: unspecified portion of femur Fracture morphology: unspecified fracture morphology Laterality: left Qualified Code(s): S72.92XA - Unspecified fracture of left femur, initial encounter for closed fracture (2) Multiple falls: Recently generalized weakness, more difficulty with getting around, ambulating, so which she states has to do with her not keeping him depressed easily due to sweat, but otherwise also states has been having to crawl at home to get around. PT, OT assessment postoperatively. Case management consultation. Status: Acute (3) Borderline personality disorder: Status: Acute (4) Schizoaffective disorder, bipolar type: Status: Acute (5) Psychiatric care: Status: Acute (6) Hepatitis C, chronic: Status: Acute Qualifiers: Hepatic coma status: without hepatic coma Qualified Code(s): B18.2 - Chronic viral hepatitis C (7) Status post open reduction with internal fixation of fracture: Status: Acute (8) Altered mental status: AMS more likely 2/2 to underlying pysch issues, most likely functional disorder. Possible UTI/ PNA U/A: Urine WBC 10-15, urine bacteria trace, urine leukocyte esterase negative, urine nitrate negative. Xray chest : Increased linear and interstitial opacities in the lower hemithoraces, findings that may represent a bilateral interstitial pneumonitis Blood Culture : ABG : Possible CT head without contrast: Possible Pysch Consult Continue tameka shepherd as needed. Will empirically cover with ceftriaxone. Status: Acute Plan Chronic pain syndrome COPD DDD GERD Hepatitis C Smoking addiction, states she is trying to quit Pulmonary hypertension PVD R BKA Schizoaffective disorder, bipolar type Code Status :Full Code DVT PPX: On lovenox Disposition: Patient has been accepted at long-term. Attestations Medical Necessity Statement*: Patient is still in hospital for management of altered mental status. 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
[2022-02-07] MEDS: dextrose 5%-sod chloride 0.9% 1,000 ML 50 ML IV (15:24)
[2022-02-07] MEDS: cefTRIAXone 1,000 MG in sodium chloride 0.9% (plus) 50 ML 100 MG IV (15:25)
[2022-02-07 23:03] LABS: Glucose Point of Care 158 mg/dL (70-110)
[2022-02-08] VITALS (13 sets, daily range): BP systolic 127–149; BP diastolic 79–87; PULSE 81–108; RESP 16–20; TEMP 36.2–37.5; O2SAT 88–96
[2022-02-08] MEDS: ziprasidone 20 mg/mL SDV 5 MG IM ×2 (01:20→19:42)
--- NOTE | 2022-02-08 01:21 | PC.NURSE ---
wiping down body to help freshen up. cleaned pepe area, stomach folds, under breasts, underarms, cath care, bottom, and did oral care
[2022-02-08] MEDS: LORazepam 2 mg/mL INJ 1 mL IVP ×4 (01:40→19:42)
[2022-02-08 04:01] LABS: Basophils # 0.1 10^3/uL (0.0-0.1); Basophils % 0.5 %; Eosinophils # 0.1 10^3/uL (0.0-0.8); Hematocrit 32.9 % (37.0-47.0); Hemoglobin 9.8 g/dL (11.5-15.3); Lymphocytes # 1.8 10^3/uL (0.8-4.8); Lymphocytes % 17.3 %; Mean Corpuscular HGB Conc 29.8 g/dL (30.0-36.0); Mean Corpuscular Hemoglobin 29.5 pg (28.0-34.0); Mean Corpuscular Volume 99.1 fl (81-99); Mean Platelet Volume 9.1 fL (7.4-10.4); Monocytes # 1.1 10^3/uL (0.2-0.9); Monocytes % 10.4 %; Neutrophils # 7.41 10^3/uL (1.8-7.7); Neutrophils % 69.7 %; Nucleated Red Blood Cells # 0.1 /100WBC; Nucleated Red Blood Cells % 0.5 %; Platelet Count 435 10^3/cmm (130-400); Red Blood Count 3.32 10^6/uL (4.1-5.3); Red Cell Distribution Width 13.3 % (12.1-15.1); White Blood Count 10.6 10^3/uL (4.0-10.0)
[2022-02-08 04:20] LABS: Blood Urea Nitrogen 17 mg/dL (6-20); Calcium 9.4 mg/dL (8.5-10.5); Carbon Dioxide 24 mmol/L (22-29); Chloride 111 mmol/L (98-107); Glomerular Filtration Rate 163.4 mL/min (90-130); Glucose 155 mg/dL (65-115); Osmolality Calculated 311 mOsm/kg (285-295); Sodium 148 mmol/L (136-145)
[2022-02-08] MEDS: HYDROmorphone 1 mg/mL INJ 1 mL IVP ×2 (04:28→14:53)
[2022-02-08 07:51] LABS: Glucose Point of Care 149 mg/dL (70-110)
[2022-02-08] MEDS: ipratropium-albuterol 3 mL Neb INHALATION ×3 (08:26→21:22)
[2022-02-08 11:22] LABS: Glucose Point of Care 167 mg/dL (70-110)
[2022-02-08] MEDS: enoxaparin 40 mg/0.4 mL Syringe SUBCUT (12:15)
--- NOTE | 2022-02-08 12:16 | PC.NURSE ---
Patient yelling Hey Over and over again no response to voice other than yelling patient continues to not follow any commands and will not open eyes head thrashing side to side; ativan given at this time for increase yelling and apparent agitation
--- NOTE | 2022-02-08 12:29 | PC.OT ---
OT CHECKED ON PATIENT'S MEDICAL STATUS, REMAINS AT BASELINE. PER NURSING, STILL HAS NOT EATEN, NO VERBAL OR EYE RESPONSE, CONTINUES TO YELL AND UNABLE TO FOLLOW COMMANDS. THEREFORE, OT EVALUATION REMAINS INAPPROPRIATE AT THIS TIME.
[2022-02-08] MEDS: dextrose 5%-sod chloride 0.9% 1,000 ML 50 ML IV (14:33)
[2022-02-08] MEDS: cefTRIAXone 1,000 MG in sodium chloride 0.9% (plus) 50 ML 100 MG IV (14:35)
--- NOTE | 2022-02-08 15:11 | PC.NURSE ---
repositioned and provided pepe care patient opened eyes was not able to follow any commands during repositioning patient would scream very loud when moving left leg PRN pain medication given Flacc noted 05/11 patient unable to squeeze hands or hold up extremities provider notified no new orders given at this time
[2022-02-08 17:20] LABS: Glucose Point of Care 148 mg/dL (70-110)
--- NOTE | 2022-02-08 19:07 | P.PN_ITS ---
Subjective Subjective: Patient was seen and examined no change in current status, continue to moan. Tried many time for verbal communication, patient did not respond appropriately. Medications: Medication Review Details: Generic Name Dose Route Start Last Admin Trade Name Kiet PRN Reason Stop Dose Admin Albuterol/Ipratrop ium 3 ml 02/03/22 03:11 02/03/22 08:51 Ipratropium-Albu terol 3 Ml Neb INHALATION 3 ml Q6H.RESPIRATORY S CH Administration Vitals/I&O/Wt Last Vital Signs Temp 99.4 F 02/08/22 16:00 Pulse 98 02/08/22 16:00 Resp 18 02/08/22 16:00 BP 144/87 02/08/22 16:00 Pulse Ox 88 L 02/08/22 16:00 02/08/22 02/08/22 02/08/22 06:59 14:59 22:59 Intake Total 0 / 120 1050 / 1050 290 / 1340 Output Total 500 / 1120 Balance -500 / -1000 1050 / 1050 290 / 1340 Weight last 48 hrs Weight 110.631 kg Physical Exam HENMT: COMMON NORMALS: normocephalic and atraumatic HEAD & SCALP: normocephalic and atraumatic Resp: COMMON NORMALS: clear to auscultation bilaterally EFFORT & INSPECTION: Yes symmetric chest movement AUSCULTATION: clear to auscultation bilaterally Cardio: COMMON NORMALS: regular rate, regular rhythm, S1 normal heart sound present, S2 normal heart sound present, No gallops present (Cardio), No murmurs present (Cardio), No rub (Cardio) and Peripheral pulses 2+ throughout RATE: regular rate RHYTHM: regular rhythm HEART SOUNDS: S1 normal heart sound present and S2 normal heart sound present PERIPHERAL PULSES: Peripheral pulses 2+ throughout GI: COMMON NORMALS: Normal to inspection, nondistended, normoactive bowel sounds present, Soft to palpation, non-tender, No hepatosplenomegaly present and no masses AUSCULTATION: Yes normoactive bowel sounds PALPATION: Yes Soft to palpation and Yes No hepatosplenomegaly present RECTAL EXAM: deferred Urinary Catheter Management: Alcantara: Cath Placed During This Visit: yes Reason for Continuing Indwelling Catheter: Acute Urinary Retention or Obstruction Urinary Catheter Date of Insertion: 02/03/22 Urinary Catheter Time of Insertion: 03:45 Data : 02/08/22 03:45 02/08/22 03:45 Micro: Microbiology 02/07/22 06:19 Blood Culture - Preliminary Blood NEGATIVE TO DATE 02/07/22 06:25 Blood Culture - Preliminary Blood NEGATIVE TO DATE A&P Assessment and plan (1) Closed femur fracture: Left distal femur fracture with displacement and angulation after mechanical fall trying to get onto the bed. S/P Open reduction internal fixation left distal femur Pain control Bowel Regimen P/T Status: Acute Qualifiers: Encounter type: initial encounter Femur location: unspecified portion of femur Fracture morphology: unspecified fracture morphology Laterality: left Qualified Code(s): S72.92XA - Unspecified fracture of left femur, initial encounter for closed fracture (2) Multiple falls: Recently generalized weakness, more difficulty with getting around, ambulating, so which she states has to do with her not keeping him depressed easily due to sweat, but otherwise also states has been having to crawl at home to get around. PT, OT assessment postoperatively. Case management consultation. Status: Acute (3) Borderline personality disorder: Status: Acute (4) Schizoaffective disorder, bipolar type: Status: Acute (5) Psychiatric care: Status: Acute (6) Hepatitis C, chronic: Status: Acute Qualifiers: Hepatic coma status: without hepatic coma Qualified Code(s): B18.2 - Chronic viral hepatitis C (7) Status post open reduction with internal fixation of fracture: Status: Acute (8) Altered mental status: AMS more likely 2/2 to underlying pysch issues, most likely functional disorder. Possible UTI/ PNA U/A: Urine WBC 10-15, urine bacteria trace, urine leukocyte esterase negative, urine nitrate negative. Xray chest : Increased linear and interstitial opacities in the lower hemithoraces, findings that may represent a bilateral interstitial pneumonitis Blood Culture : ABG : Possible CT head without contrast: Possible Pysch Consult Continue geodon, ativan as needed. Will empirically cover with ceftriaxone. Status: Acute Plan Chronic pain syndrome COPD DDD GERD Hepatitis C Smoking addiction, states she is trying to quit Pulmonary hypertension PVD R BKA Schizoaffective disorder, bipolar type Code Status :Full Code DVT PPX: On lovenox Dis[facility]: [facility] Attestations Medical Necessity Statement*: Patient is to be in hospital for management of altered mental status. 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
[2022-02-09] VITALS (20 sets, daily range): BP systolic 121–156; BP diastolic 72–89; PULSE 68–93; RESP 11–21; TEMP 36.5–37.2; O2SAT 90–97
[2022-02-09] MEDS: HYDROmorphone 1 mg/mL INJ 1 mL IVP ×3 (00:09→08:46)
[2022-02-09 00:56] LABS: Glucose Point of Care 139 mg/dL (70-110)
[2022-02-09 03:57] LABS: Basophils # 0.1 10^3/uL (0.0-0.1); Basophils % 0.5 %; Eosinophils # 0.2 10^3/uL (0.0-0.8); Eosinophils % 1.5 %; Hematocrit 34.6 % (37.0-47.0); Hemoglobin 10.1 g/dL (11.5-15.3); Lymphocytes # 2.5 10^3/uL (0.8-4.8); Lymphocytes % 22.5 %; Mean Corpuscular HGB Conc 29.2 g/dL (30.0-36.0); Mean Corpuscular Hemoglobin 29.5 pg (28.0-34.0); Mean Corpuscular Volume 101.2 fl (81-99); Mean Platelet Volume 9.4 fL (7.4-10.4); Monocytes # 1.2 10^3/uL (0.2-0.9); Monocytes % 10.4 %; Neutrophils # 7.12 10^3/uL (1.8-7.7); Neutrophils % 63.8 %; Nucleated Red Blood Cells # 0.1 /100WBC; Nucleated Red Blood Cells % 0.4 %; Platelet Count 443 10^3/cmm (130-400); Red Blood Count 3.42 10^6/uL (4.1-5.3); Red Cell Distribution Width 13.7 % (12.1-15.1); White Blood Count 11.2 10^3/uL (4.0-10.0)
[2022-02-09 04:25] LABS: Blood Urea Nitrogen 15 mg/dL (6-20); Calcium 9.3 mg/dL (8.5-10.5); Carbon Dioxide 21 mmol/L (22-29); Chloride 112 mmol/L (98-107); Glomerular Filtration Rate 126.3 mL/min (90-130); Glucose 140 mg/dL (65-115); Osmolality Calculated 309 mOsm/kg (285-295); Sodium 148 mmol/L (136-145)
[2022-02-09 06:56] LABS: Glucose Point of Care 151 mg/dL (70-110)
--- NOTE | 2022-02-09 07:23 | PC.NURSE ---
Bedside report received from MARTHA Ba.
--- NOTE | 2022-02-09 08:11 | PC.NURSE ---
Pt is unable to swallow PO medications. All morning PO meds held.
[2022-02-09] MEDS: ipratropium-albuterol 3 mL Neb INHALATION ×3 (08:52→20:11)
[2022-02-09] MEDS: enoxaparin 40 mg/0.4 mL Syringe SUBCUT (10:02)
[2022-02-09] MEDS: dextrose 5%-sod chloride 0.9% 1,000 ML 50 ML IV (10:02)
[2022-02-09 12:18] LABS: Glucose Point of Care 150 mg/dL (70-110)
[2022-02-09] MEDS: HYDROmorphone 1 mg/mL INJ 1 mL 0.5 MG IVP ×2 (12:35→16:15)
[2022-02-09] MEDS: LORazepam 2 mg/mL INJ 1 mL IVP ×3 (12:35→19:15)
[2022-02-09 13:07] LABS: Iron 29 ug/dL (37-145); Percent Saturation 14.8 % (20-50); Thyroid Stimulating Hormone 0.62 uIU/mL (0.27-4.20); Total Iron Binding Capacity 195 mcg/dl; Unsaturated Iron Binding 166 ug/dL (112-347); Vitamin B12 408 pg/mL (232-1245)
--- NOTE | 2022-02-09 13:11 | PC.OT ---
OT EVALUATION ATTEMPTED. PATIENT IN BED; O2 OFF; REPLACED BY THIS THERAPIST. UNABLE TO ACTIVELY PARTICIPATE OR FOLLOW ANY DIRECTIONS IN EVALUATION. WILL ATTEMPT AGAIN TOMORROW.
[2022-02-09] MEDS: nicotine 14 mg Patch 1 PATCH TRANSDERMA (14:46)
[2022-02-09] MEDS: dextrose 5% 1,000 ML 100 ML IV ×2 (14:46→19:30)
[2022-02-09] MEDS: cefTRIAXone 1,000 MG in sodium chloride 0.9% (plus) 50 ML 100 MG IV (15:58)
--- NOTE | 2022-02-09 16:20 | PM.PN ---
Subjective Subjective: Hospital course, labs appreciated. Examination patient lying in bed, altered, confused, continues to moan and shout help. Patient nonverbal otherwise. Unable to communicate or follow simple commands. Has remained hemodynamically stable and afebrile. Currently on 2 L saturating 96%. Vitals/I&O/Wt Last Vital Signs Temp 98.0 F 02/09/22 16:00 Pulse 86 02/09/22 16:00 Resp 20 H 02/09/22 16:00 BP 138/72 02/09/22 16:00 Pulse Ox 96 02/09/22 16:00 02/09/22 02/09/22 02/09/22 06:59 14:59 22:59 Intake Total 974.167 / 974.167 Output Total 1000 / 1000 Balance -1000 / 340 974.167 / 974.167 Weight last 48 hrs Weight 104.236 kg Weight 110.631 kg Physical Exam Narrative: General: Altered, confused, not following simple commands, GCS: E4 M 5 V1 HEENT: PERRLA, pupils bilaterally equal and reactive Chest: Normal vesicular breath sounds, no added sounds, equal good air entry bilaterally CVS: S1-S2 regular, no murmurs, no tachycardia, no gallops, no rubs Abdomen: Soft, nontender, no organomegaly, bowel sounds present Neuro: No focal deficits, moving all 4 limbs Extremities: Right BKA, left leg surgically bandaged Urinary Catheter Management: Alcantara: Cath Placed During This Visit: yes Reason for Continuing Indwelling Catheter: Acute Urinary Retention or Obstruction Urinary Catheter Date of Insertion: 02/03/22 Urinary Catheter Time of Insertion: 03:45 Data : 02/09/22 03:30 02/09/22 03:30 A&P Assessment and plan (1) Altered mental status: Altered mental status most likely secondary to underlying schizoaffective disorder, borderline personality, cannot rule out secondary to withdrawal from multiple psych medications. Could be secondary to hypernatremia, nicotine withdrawal. At baseline patient takes bupropion 300 mg daily, fluoxetine 80 mg daily, lamotrigine 150 mg daily, pregabalin 200 mg 3 times a day, Seroquel 600 to 750 mg daily. On medical reconciliation it seems patient has not received these medications since admission. Unlikely infectious in nature. Patient has remained hemodynamically stable and afebrile. UA negative for any signs of infection, chest x-ray concerning for mild bilateral pneumonitis. Blood cultures so far negative. Check CT head, ammonia levels, vitamin B12, folate, TSH level. Start patient on Precedex drip. Get NG tube. Restart on home psychiatric medications but at a lower dose with fluoxetine at 40 mg daily, bupropion 150 mg daily, pregabalin at 200 mg 3 times a day, Seroquel at 300 mg daily. Geodon as needed. Possibility of opioid withdrawal. Start on Dilaudid 0.5 every 4 hours as needed. For hypernatremia D5W at 100 cc/h. Once NG tube in place will start on free water flushes. Monitor sodium levels daily for now. Once patient more sedated can check CT abdomen pelvis chest. If patient does not improve with all the above will consult psychiatry for possible conversion disorder. Status: Acute (2) Closed femur fracture: Left distal femur fracture with displacement and angulation after mechanical fall trying to get onto the bed. S/P Open reduction internal fixation left distal femur Pain control Bowel Regimen P/T Status: Acute Qualifiers: Encounter type: initial encounter Femur location: unspecified portion of femur Fracture morphology: unspecified fracture morphology Laterality: left Qualified Code(s): S72.92XA - Unspecified fracture of left femur, initial encounter for closed fracture (3) Status post open reduction with internal fixation of fracture: Status: Acute (4) Multiple falls: Recently generalized weakness, more difficulty with getting around, ambulating, states has been having to crawl at home to get around. Case management consultation. Status: Acute (5) Borderline personality disorder: Status: Acute (6) Schizoaffective disorder, bipolar type: Status: Acute (7) Psychiatric care: Status: Acute (8) Hepatitis C, chronic: Status: Acute Qualifiers: Hepatic coma status: without hepatic coma Qualified Code(s): B18.2 - Chronic viral hepatitis C Plan Chronic pain syndrome COPD DDD GERD Hepatitis C Smoking addiction, states she is trying to quit Pulmonary hypertension PVD R BKA Schizoaffective disorder, bipolar type Analgesia: Dilaudid 0.5 mg every 4 hours as needed, oxycodone 1 tablet every 12 hourly Glycemic control: Start on insulin sliding scale low-dose protocol to 6 hourly Nutrition: N.p.o. NG tube placement CODE STATUS: Full code PUD prophylaxis: Protonix DVT prophylaxis: Lovenox Discharge planning: Plan to discharge to SNF once back to baseline mentation and medically cleared. I was told patient was accepted at [facility] but now on hold given altered mental status. Transfer to [facility] care for Christie tucker Attestations Medical Necessity Statement*: As further hospitalization for management of continued altered mental status, postoperative care for post-ORIF in setting of baseline schizoaffective bipolar disorder Time Spent in Patient Care: Greater than 35 minutes Coding Level of Care Code Acute Pharmacy Technician Inpatient for [facility] Fwd Diagnoses Closed femur fracture S72.92XA Encounter type: initial encounter Femur location: unspecified portion of femur Fracture morphology: unspecified fracture morphology Laterality: left Multiple falls R29.6 Borderline personality disorder F60.3 Schizoaffective disorder, bipolar type F25.0 Psychiatric care Hepatitis C, chronic B18.2 Hepatic coma status: without hepatic coma Status post open reduction with internal fixation of fracture Z98.890; Z87.81 Altered mental status R41.82
--- NOTE | 2022-02-09 16:53 | PC.NURSE ---
Report called to MARTHA Iyer, in ICU . Pt to be transported by bed
[2022-02-09] MEDS: ziprasidone 20 mg/mL SDV 5 MG IM (17:06)
--- NOTE | 2022-02-09 18:24 | PC.NURSE ---
Dr. Christina at bedside, gave v.o. to give second dose of geodone as soon as needed for agitation and precedex drip
[2022-02-09 18:49] LABS: Glucose Point of Care 149 mg/dL (70-110)
[2022-02-09] MEDS: insulin lispro 100 unit/1 mL SUBCUT (18:52)
[2022-02-09] MEDS: dexmedeTOMIDine 0.9 % NaCL 400 MCG/100 ML PREMIX IV (19:39)
--- NOTE | 2022-02-09 20:31 | XRR_ITS ---
PROCEDURE INFORMATION: Exam: XR Chest Exam date and time: 02/09/2022 8:36 PM Age: 61 years old Clinical indication: Device placement; Gi device; Nasogastric tube; Additional info: Feeding tube placement verification TECHNIQUE: Imaging protocol: Radiologic exam of the chest. Views: 1 view. COMPARISON: CR (CHEST, ) 02/06/2022 1:40 AM FINDINGS: Tubes, catheters and devices: Interval placement of a feeding tube with the tip in the body of the stomach. Lungs: Lungs are clear bilaterally. Pleural spaces: No pleural effusion. No pneumothorax. Heart/Mediastinum: Stable mild enlargement of the cardiac silhouette. Mediastinal contours are unremarkable. Bones/joints: Unremarkable for age. Organs: Surgical clips in the gallbladder fossa and right mid abdomen. XR/XR abdomen 1V* [id number] IMPRESSION: 1. No acute cardiopulmonary process. 2. Interval placement of a feeding tube with the tip in the body of the stomach. 3. Incidental/nonacute findings are listed in the report.
[2022-02-09 21:07] LABS: Ammonia 21 umol/L (11-51)
[2022-02-09] MEDS: buPROPion SR (12 HR) 150 mg Tablet PO (21:09)
[2022-02-09] MEDS: quetiapine 300 mg Tablet PO (21:09)
[2022-02-09] MEDS: pregabalin 100 mg Capsule 200 MG PO (21:09)
[2022-02-09 21:32] LABS: Folate Level > 20.0 ng/mL (4.8-37.3)
[2022-02-10] VITALS (29 sets, daily range): BP systolic 96–139; BP diastolic 58–93; PULSE 69–86; RESP 11–33; TEMP 36.8–37.8; O2SAT 91–98
[2022-02-10] MEDS: oxyCODONE-APAP 10-325 mg Tablet 1 TAB PO (00:11)
[2022-02-10 01:24] LABS: Glucose Point of Care 128 mg/dL (70-110)
[2022-02-10] MEDS: ipratropium-albuterol 3 mL Neb INHALATION ×4 (03:22→21:29)
[2022-02-10] MEDS: dextrose 5% 1,000 ML 100 ML IV ×2 (05:01→14:49)
[2022-02-10 05:39] LABS: Glucose Point of Care 131 mg/dL (70-110)
[2022-02-10] MEDS: lamoTRIgine 100 mg Tablet 150 MG PO (05:40)
[2022-02-10 05:44] LABS: Basophils # 0.1 10^3/uL (0.0-0.1); Basophils % 0.6 %; Eosinophils # 0.3 10^3/uL (0.0-0.8); Eosinophils % 2.8 %; Hematocrit 32.2 % (37.0-47.0); Hemoglobin 9.5 g/dL (11.5-15.3); Lymphocytes # 2.3 10^3/uL (0.8-4.8); Lymphocytes % 24.4 %; Mean Corpuscular HGB Conc 29.5 g/dL (30.0-36.0); Mean Corpuscular Hemoglobin 29.7 pg (28.0-34.0); Mean Corpuscular Volume 100.6 fl (81-99); Mean Platelet Volume 9.8 fL (7.4-10.4); Monocytes % 10.2 %; Neutrophils % 60.4 %; Nucleated Red Blood Cells % 0.3 %; Platelet Count 397 10^3/cmm (130-400); Red Cell Distribution Width 13.4 % (12.1-15.1); White Blood Count 9.6 10^3/uL (4.0-10.0)
[2022-02-10 05:52] LABS: Alanine Aminotransferase 28 U/L (0-33); Albumin Level 2.8 g/dL (3.5-5.2); Alkaline Phosphatase 118 IU/L (35-105); Anion Gap 15.7 (5-19); Aspartate Amino Transferase 30 U/L (0-32); Blood Urea Nitrogen 16 mg/dL (6-20); Carbon Dioxide 23 mmol/L (22-29); Chloride 111 mmol/L (98-107); Globulin 3.9 g/dL (1.3-4.6); Glomerular Filtration Rate 126.3 mL/min (90-130); Glucose 144 mg/dL (65-115); Osmolality Calculated 306 mOsm/kg (285-295); Potassium 3.7 mmol/L (3.5-5.1); Sodium 146 mmol/L (136-145); Total Bilirubin 0.6 mg/dL (0.15-1.2); Total Protein 6.7 g/dL (6.6-8.7)
[2022-02-10 05:57] LABS: Estmated Average Glucose 128; Hemoglobin A1C 6.1 % (4.0-6.0)
--- NOTE | 2022-02-10 08:00 | CT_ITS ---
WS: [id number] CT HEAD TECHNIQUE: Noncontrast CT of the head obtained from the skullbase to the vertex. CLINICAL INFORMATION: AMS COMPARISON: CT June 10, 2021 DLP: 1095.[address] scans at [facility] use at least one of these dose optimization techniques: automated e xposure control; mA and/or kV adjustment per patient size (includes targeted exams where dose is matc hed to clinical indication); or iterative reconstruction. FINDINGS: No evidence of intracranial hemorrhage or mass effect. Ventricular system and basal cisterns are zuñiga nt. Mild small vessel changes with moderate parenchymal volume loss. No extra-axial fluid collections . No evidence of mass or mass effect. 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 .Normal visualized soft tissues. CT/CT head wo con* [id number] IMPRESSION: 1. No evidence of intracranial hemorrhage or mass effect. 2. Mild small vessel changes. Moderate parenchymal volume loss. 3. 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 No acute intracranial findings.
[2022-02-10] MEDS: nicotine 14 mg Patch 1 PATCH TRANSDERMA (09:36)
[2022-02-10] MEDS: enoxaparin 40 mg/0.4 mL Syringe SUBCUT (09:37)
[2022-02-10] MEDS: buPROPion SR (12 HR) 150 mg Tablet PO (09:38)
[2022-02-10] MEDS: pregabalin 100 mg Capsule 200 MG PO (09:39)
[2022-02-10] MEDS: fluoxetine 20 mg Capsule 40 MG PO (09:39)
--- NOTE | 2022-02-10 10:40 | PC.NUTR ---
Received consult for TF goal rate. Recommend Jevity 1.2 @ 10 mls/hr to increase 10 mls/hr Q8H as tolerated until goal rate of 40 mls/hr is reached, with flushes of 100 mls Q4H. Details in RD assessment.
--- NOTE | 2022-02-10 11:10 | PC.OT ---
OT EVALUATION ATTEMPTED; PATIENT OFF UNIT TO CT AND PER NURSING AND P.T. IS NOT FOLLOWING DIRECTIONS TODAY; WILL ATTEMPT AGAIN TOMORROW.
[2022-02-10 11:44] LABS: Glucose Point of Care 138 mg/dL (70-110)
--- NOTE | 2022-02-10 13:41 | PM.PN ---
Subjective Subjective: In last 24 hours patient had an NG tube placed after which she was started on free water flushes along with IV fluids through IV line and her home psych medications were restarted. Today morning on examination earlier she was sleeping but slightly arousable on deep palpation. When again seen in the afternoon patient is awake and alert able to have complete conversation, slightly drowsy and confused but not agitated. Family at bedside. Patient denies any nausea, vomiting, headache. Complaining of slight back and leg pain. Vitals/I&O/Wt Last Vital Signs Temp 99 F 02/10/22 04:00 Pulse 74 02/10/22 12:00 Resp 22 H 02/10/22 12:00 BP 128/93 02/10/22 12:00 Pulse Ox 96 02/10/22 12:00 02/09/22 02/10/22 02/10/22 22:59 06:59 14:59 Intake Total 523.333 / 1497.500 951.667 / 2449.167 Output Total 600 / 600 100 / 700 Balance -76.667 / 897.500 851.667 / 1749.167 Weight last 48 hrs Weight 104.734 kg Weight 104.236 kg Physical Exam Narrative: General: No acute distress, slightly drowsy, slightly confused, AO x3 otherwise HEENT: PERRLA, pupils bilaterally equal and reactive Chest: Normal vesicular breath sounds, no added sounds, equal good air entry bilaterally CVS: S1-S2 regular, no murmurs, no tachycardia, no gallops, no rubs Abdomen: Soft, nontender, no organomegaly, bowel sounds present Neuro: No focal deficits, moving all 4 limbs Extremities: Right BKA, left leg surgically bandaged Urinary Catheter Management: Alcantara: Cath Placed During This Visit: yes Reason for Continuing Indwelling Catheter: Accurate Measurement of Urinary Output in Critically Ill Patients Urinary Catheter Date of Insertion: 02/03/22 Urinary Catheter Time of Insertion: 03:45 Data : 02/10/22 05:04 02/10/22 05:04 A&P Assessment and plan (1) Altered mental status: Altered mental status most likely secondary to withdrawal from multiple psych medications along with combination of hyponatremia and nicotine withdrawal. At baseline patient takes bupropion 300 mg daily, fluoxetine 80 mg daily, lamotrigine 150 mg daily, pregabalin 200 mg 3 times a day, Seroquel 600 to 750 mg daily. On medical reconciliation it seems patient has not received these medications since admission. Unlikely infectious in nature. Patient has remained hemodynamically stable and afebrile. UA negative for any signs of infection, chest x-ray concerning for mild bilateral pneumonitis. Blood cultures so far negative. Continue to hold off antibiotics for now. CT head, ammonia levels, vitamin B12, TSH levels appreciated normal. Continue with low-dose Precedex. Continue with NG tube and medications through NG tube along with free water flushes of 250 every 4 hourly. For now continue with fluoxetine at 40 mg daily, bupropion at 100 mg twice daily, pregabalin at 100 mg twice daily, Seroquel at 500 mg at bedtime. Dilaudid 0.5 mg IV every 4 hours as needed for pain. Geodon as needed. For hypernatremia D5W at 100 cc/h. Once NG tube in place will start on free water flushes. Monitor sodium levels daily for now. If patient does not improve with all the above will consult psychiatry for possible conversion disorder. Status: Acute (2) Closed femur fracture: Left distal femur fracture with displacement and angulation after mechanical fall trying to get onto the bed. S/P Open reduction internal fixation left distal femur Pain control Bowel Regimen P/T Status: Acute Qualifiers: Encounter type: initial encounter Femur location: unspecified portion of femur Fracture morphology: unspecified fracture morphology Laterality: left Qualified Code(s): S72.92XA - Unspecified fracture of left femur, initial encounter for closed fracture (3) Status post open reduction with internal fixation of fracture: Status: Acute (4) Multiple falls: Recently generalized weakness, more difficulty with getting around, ambulating, states has been having to crawl at home to get around. Case management consultation. Status: Acute (5) Borderline personality disorder: Status: Acute (6) Schizoaffective disorder, bipolar type: Status: Acute (7) Psychiatric care: Status: Acute (8) Hepatitis C, chronic: Status: Acute Qualifiers: Hepatic coma status: without hepatic coma Qualified Code(s): B18.2 - Chronic viral hepatitis C Plan Chronic pain syndrome COPD DDD GERD Hepatitis C Smoking addiction, states she is trying to quit Pulmonary hypertension PVD R BKA Schizoaffective disorder, bipolar type Analgesia: Dilaudid 0.5 mg every 4 hours as needed, oxycodone 1 tablet every 12 hourly Glycemic control: Start on insulin sliding scale low-dose protocol to 6 hourly Nutrition: N.p.o., NG tube free water flushes 250 every 4 hours as needed. Swallow evaluation. CODE STATUS: Full code PUD prophylaxis: Protonix DVT prophylaxis: Lovenox Discharge planning: Plan to discharge to SNF versus home with home health. Patient is reaching back to her baseline mentation. Case management alerted. Continue with ICU care. Attestations Medical Necessity Statement*: Requires further hospitalization for management of improving altered mental status in setting of withdrawal from multiple psych medications and postoperative care for ORIF Critical Care Time: The high probability of a clinically significant, sudden or life threatening deterioration of the patient's [neurological system(s) required my full and direct attention, intervention and personal management. The critical care time is as shown. This time is in addition to time spent performing any reported procedures but includes the following: [x] Data and vital sign review and interpretation [x] Patient assessment, examination and intervention [x] Documentation [x] Medication orders and management Critical Care Time (min): 60 Coding Level of Care Code Acute Administrative Intern for [facility] Fwd Diagnoses Altered mental status R41.82 Closed femur fracture S72.92XA Encounter type: initial encounter Femur location: unspecified portion of femur Fracture morphology: unspecified fracture morphology Laterality: left Status post open reduction with internal fixation of fracture Z98.890; Z87.81 Multiple falls R29.6 Borderline personality disorder F60.3 Schizoaffective disorder, bipolar type F25.0 Psychiatric care Hepatitis C, chronic B18.2 Hepatic coma status: without hepatic coma
[2022-02-10] MEDS: cefTRIAXone 1,000 MG in sodium chloride 0.9% (plus) 50 ML 100 MG IV (14:47)
[2022-02-10] MEDS: oxyCODONE-APAP 5-325 mg Tablet 1 TAB PO (17:05)
[2022-02-10] MEDS: buPROPion SR (12 HR) 100 mg Tablet PO (17:05)
[2022-02-10] MEDS: pregabalin 100 mg Capsule PO (17:07)
[2022-02-10 17:18] LABS: Glucose Point of Care 118 mg/dL (70-110)
[2022-02-10] MEDS: HYDROmorphone 1 mg/mL INJ 1 mL 0.5 MG IVP (19:12)
[2022-02-10] MEDS: dexmedeTOMIDine 0.9 % NaCL 400 MCG/100 ML PREMIX IV (19:13)
[2022-02-10] MEDS: quetiapine 100 mg Tablet 500 MG PO (20:22)
[2022-02-11] VITALS (31 sets, daily range): BP systolic 93–156; BP diastolic 58–95; PULSE 58–95; RESP 10–27; TEMP 36.8–37.5; O2SAT 90–98
[2022-02-11 00:02] LABS: Glucose Point of Care 109 mg/dL (70-110)
--- NOTE | 2022-02-11 00:19 | PC.NURSE ---
Pt was released from restraints at 2200. Pt AetO at that time. When rounded on at 0000, pt had pulled out 10 cm of her enteric tube. Pt was placed back into restraints and enteric tube put back into appropriate placement and verified by auscultation. Precedex was increased as well
[2022-02-11] MEDS: dextrose 5% 1,000 ML 100 ML IV (04:03)
[2022-02-11] MEDS: ipratropium-albuterol 3 mL Neb INHALATION ×4 (04:26→20:47)
[2022-02-11 04:42] LABS: Basophils # 0.1 10^3/uL (0.0-0.1); Basophils % 0.6 %; Eosinophils # 0.2 10^3/uL (0.0-0.8); Eosinophils % 2.7 %; Hematocrit 26.2 % (37.0-47.0); Lymphocytes # 2.6 10^3/uL (0.8-4.8); Lymphocytes % 29.2 %; Mean Corpuscular HGB Conc 34.4 g/dL (30.0-36.0); Mean Corpuscular Hemoglobin 30.1 pg (28.0-34.0); Mean Corpuscular Volume 87.6 fl (81-99); Mean Platelet Volume 9.1 fL (7.4-10.4); Monocytes # 0.8 10^3/uL (0.2-0.9); Monocytes % 9.4 %; Neutrophils % 56.7 %; Nucleated Red Blood Cells % 0.3 %; Platelet Count 378 10^3/cmm (130-400); Red Blood Count 2.99 10^6/uL (4.1-5.3)
[2022-02-11 05:00] LABS: Alanine Aminotransferase 27 U/L (0-33); Albumin Level 2.8 g/dL (3.5-5.2); Alkaline Phosphatase 109 IU/L (35-105); Anion Gap 13.5 (5-19); Aspartate Amino Transferase 25 U/L (0-32); Blood Urea Nitrogen 14 mg/dL (6-20); Calcium 8.8 mg/dL (8.5-10.5); Carbon Dioxide 25 mmol/L (22-29); Chloride 99 mmol/L (98-107); Globulin 3.2 g/dL (1.3-4.6); Glomerular Filtration Rate 126.3 mL/min (90-130); Glucose 137 mg/dL (65-115); Osmolality Calculated 281 mOsm/kg (285-295); Potassium 3.5 mmol/L (3.5-5.1); Sodium 134 mmol/L (136-145); Total Bilirubin 0.6 mg/dL (0.15-1.2)
[2022-02-11] MEDS: lamoTRIgine 100 mg Tablet 150 MG PO (05:48)
[2022-02-11] MEDS: nicotine 14 mg Patch 1 PATCH TRANSDERMA (08:49)
[2022-02-11] MEDS: oxyCODONE-APAP 5-325 mg Tablet 1 TAB PO ×2 (08:49→18:21)
[2022-02-11] MEDS: buPROPion SR (12 HR) 100 mg Tablet PO ×2 (08:49→18:21)
[2022-02-11] MEDS: pregabalin 100 mg Capsule PO ×2 (08:49→18:21)
[2022-02-11] MEDS: fluoxetine 20 mg Capsule 40 MG PO (08:49)
[2022-02-11] MEDS: TRAMadol 50 mg Tablet PO ×2 (10:42→19:32)
[2022-02-11] MEDS: enoxaparin 40 mg/0.4 mL Syringe SUBCUT (10:42)
--- NOTE | 2022-02-11 10:44 | PC.CHAP ---
Pastoral Care Encounter/Spiritual Assessment Type of Contact [] Declined spring fitter visit [] Patient/Family/Request visit [] Outpatient visit [] Follow-up visit [] Physician referral [] Code/Alert [x] Routine visit [] Staff referral [] Actively dying [] Patient sleeping [] Family support [] [] Out of room [] Palliative care [] [] Receiving care in room [] Pre-surgical visit [] Trauma [] Long length of stay [x] ICU visit [] Other: Relational/Emotional Strength [] Patient feels connected with others/family/visitors/staff [] Distress [] Loneliness/isolation [] Abandonment Spirituality of Patient [] Person of Love [] Attends Gnosticism of their Love [] Believes in Prayer [] Reads Bible or Yazidi materials [] There are Spiritual issues to be addressed Manager Of Distribution Interventions [x] Prayer [x] Active listening [x] Non-anxious presence [x] Spiritual/emotional support [] Crisis/trauma care [] Spiritual counseling [] Bereavement support [] Provided bereavement packet [] Provided Bible/devotional materials [] Provided toy/stuffed animal, coloring book to patient or family member [] Provided Communion [] Anointing/[place] [] Salvation [x] Completed spiritual assessment [] Other: Impact on Illness or Injury [] Angry [] Fearful [] Anxious [] Often cries [] Exhaustion [] Unable to work [] Unable to attend christianity [] Unable to walk/stand [] Unable to read [] Unable to drive [] Unable to eat/drink [] Unable to sleep [] Unable to be with family [] Patient intubated [] Other: Summary feeling stronger... Time spent with patient 5 min
[2022-02-11] MEDS: HYDROmorphone 1 mg/mL INJ 1 mL 0.5 MG IVP ×3 (11:22→21:25)
--- NOTE | 2022-02-11 11:52 | P.PN_ITS ---
Subjective Subjective: No acute events overnight. Today morning examination patient is a lot more awake and alert. Able to have complete conversation. She is AOx3. Complaining of back pain and pain in her leg. Denies any nausea vomiting, headache. Working with physical therapy. Advance to mechanical soft diet as per speech evaluation. Able to take her oral pills. No episodes of agitation or confusion. Vitals/I&O/Wt Last Vital Signs Temp 99.5 F 02/11/22 09:00 Pulse 69 02/11/22 09:00 Resp 27 H 02/11/22 09:00 BP 104/59 02/11/22 09:00 Pulse Ox 92 02/11/22 09:00 02/10/22 02/11/22 02/11/22 22:59 06:59 14:59 Intake Total 611.509 / 1530.848 7627.137 / 3104.646 200 / 200 Output Total 450 / 450 200 / 650 Balance 161.509 / 3194.614 7817.137 / 2454.646 200 / 200 Weight last 48 hrs Weight 104.78 kg Weight 104.734 kg Physical Exam Narrative: General: No acute distress, AO x3 HEENT: PERRLA, pupils bilaterally equal and reactive Chest: Normal vesicular breath sounds, no added sounds, equal good air entry bilaterally CVS: S1-S2 regular, no murmurs, no tachycardia, no gallops, no rubs Abdomen: Soft, nontender, no organomegaly, bowel sounds present Neuro: No focal deficits, moving all 4 limbs Extremities: Right BKA, left leg surgically bandaged Urinary Catheter Management: Alcantara: Cath Placed During This Visit: yes Reason for Continuing Indwelling Catheter: Accurate Measurement of Urinary Output in Critically Ill Patients Urinary Catheter Date of Insertion: 02/03/22 Urinary Catheter Time of Insertion: 03:45 Data : 02/11/22 04:22 02/11/22 04:22 A&P Assessment and plan (1) Altered mental status: Altered mental status most likely secondary to withdrawal from multiple psych medications along with combination of hyponatremia and nicotine withdrawal. At baseline patient takes bupropion 300 mg daily, fluoxetine 80 mg daily, lamotrigine 150 mg daily, pregabalin 200 mg 3 times a day, Seroquel 600 to 750 mg daily. On medical reconciliation it seems patient has not received these medications since admission. Unlikely infectious in nature. Patient has remained hemodynamically stable and afebrile. UA negative for any signs of infection, chest x-ray concerning for mild bilatera l pneumonitis. Blood cultures so far negative. Continue to hold off antibiotics for now. CT head, ammonia levels, vitamin B12, TSH levels appreciated normal. Continue with low-dose Precedex. Continue with NG tube and medications through NG tube along with free water flushes of 250 every 4 hourly. For now continue with fluoxetine at 40 mg daily, bupropion at 100 mg twice daily, pregabalin at 100 mg twice daily, Seroquel at 500 mg at bedtime. Dilaudid 0.5 mg IV every 4 hours as needed for pain. Geodon as needed. For hypernatremia D5W at 100 cc/h. Once NG tube in place will start on free wayne er flushes. Monitor sodium levels daily for now. If patient does not improve with all the above will consult psychiatry for possible conversion disorder. Status: Acute (2) Closed femur fracture: Left distal femur fracture with displacement and angulation after mechanical fall trying to get onto the bed. S/P Open reduction internal fixation left distal femur Pain control Bowel Regimen P/T Status: Acute Qualifiers: Encounter type: initial encounter Femur location: unspecified portion of femur Fracture morphology: unspecified fracture morphology Laterality: left Qualified Code(s): S72.92XA - Unspecified fracture of left femur, initial encounter for closed fracture (3) Status post open reduction with internal fixation of fracture: Status: Acute (4) Multiple falls: Recently generalized weakness, more difficulty with getting around, ambulating, states has been having to crawl at home to get around. Case management consultation. Status: Acute (5) Borderline personality disorder: Status: Acute (6) Schizoaffective disorder, bipolar type: Status: Acute (7) Psychiatric care: Status: Acute (8) Hepatitis C, chronic: Status: Acute Qualifiers: Hepatic coma status: without hepatic coma Qualified Code(s): B18.2 - Chronic viral hepatitis C Plan Chronic pain syndrome COPD DDD GERD Hepatitis C Smoking addiction, states she is trying to quit Pulmonary hypertension PVD R BKA Schizoaffective disorder, bipolar type Analgesia: Dilaudid 0.5 mg every 4 hours as needed, oxycodone 1 tablet every 12 hourly Glycemic control: Start on insulin sliding scale low-dose protocol to 6 hourly Nutrition: N.p.o., NG tube free water flushes 250 every 4 hours as needed. Swallow evaluation. CODE STATUS: Full code PUD prophylaxis: Protonix DVT prophylaxis: Lovenox Discharge planning: Plan to discharge to SNF versus home with home health. Patient is reaching back to her baseline mentation. Case management alerted. Continue with ICU care. Plan for day: Continue with physical therapy, Occupational Therapy. Advance diet as per swallow evaluation. Continue psych medications as before. Fluoxetine at 40 mg, pregabalin at 100 mg twice daily, lamotrigine at 150 mg, Seroquel at 500, bupropion at 100 twice daily. Will ask orthopedics to evaluate the wound again. Out of bed to chair. The patient is oral diet well will discontinue NG tube. Continue with ICU care. Decrease IV fluid with D5W at 50 cc/h. Stop free water flushes. . Precedex drip. Attestations Medical Necessity Statement*: Requires further hospitalization for management of recovering altered mental status in setting of multiple psych medication, withdrawal, recent femur fracture, safe discharge planning is sought. Time Spent in Patient Care: Greater than 35 minutes Coding Level of Care Code Acute Manager [place] for [facility] Fwd Diagnoses Altered mental status R41.82 Closed femur fracture S72.92XA Encounter type: initial encounter Femur location: unspecified portion of femur Fracture morphology: unspecified fracture morphology Laterality: left Status post open reduction with internal fixation of fracture Z98.890; Z87.81 Multiple falls R29.6 Borderline personality disorder F60.3 Schizoaffective disorder, bipolar type F25.0 Psychiatric care Hepatitis C, chronic B18.2 Hepatic coma status: without hepatic coma
[2022-02-11 12:21] LABS: Glucose Point of Care 160 mg/dL (70-110)
[2022-02-11] MEDS: insulin lispro 100 unit/1 mL SUBCUT (13:20)
[2022-02-11] MEDS: cefTRIAXone 1,000 MG in sodium chloride 0.9% (plus) 50 ML 100 MG IV (16:24)
[2022-02-11 17:50] LABS: Glucose Point of Care 108 mg/dL (70-110)
--- NOTE | 2022-02-11 18:34 | PC.NURSE ---
SHift SUmmary: Upon morning assessment, patient was alert and oriente to person, place, time, and situation. Patient able to follow commands and not pulling out lines. Restraints removed. Diet has been advanced to soft mechanical. Patient has no issues swallowing, has an intact gag reflex, and strong cough. eats 100% of meals. Patient was up to a chair for about 5 hours today. Jennifer lift used for transition. Urine output has been 950 mL.
[2022-02-11] MEDS: dextrose 5% 1,000 ML 50 ML IV (19:35)
[2022-02-11] MEDS: quetiapine 100 mg Tablet 500 MG PO (21:19)
[2022-02-11] MEDS: acetaminophen 325 mg Tablet 650 MG PO (23:49)
[2022-02-12] VITALS (20 sets, daily range): BP systolic 104–142; BP diastolic 59–86; PULSE 80–103; RESP 15–21; TEMP 36.4–37.3; O2SAT 88–96
[2022-02-12 00:12] LABS: Glucose Point of Care 138 mg/dL (70-110)
[2022-02-12] MEDS: ipratropium-albuterol 3 mL Neb INHALATION ×2 (03:34→08:44)
[2022-02-12] MEDS: lamoTRIgine 100 mg Tablet 150 MG PO (05:44)
[2022-02-12 05:45] LABS: Glucose Point of Care 139 mg/dL (70-110)
[2022-02-12] MEDS: TRAMadol 50 mg Tablet PO (05:57)
[2022-02-12 06:23] LABS: Basophils # 0.1 10^3/uL (0.0-0.1); Basophils % 0.6 %; Eosinophils # 0.2 10^3/uL (0.0-0.8); Eosinophils % 2.2 %; Hematocrit 27.5 % (37.0-47.0); Hemoglobin 9.2 g/dL (11.5-15.3); Lymphocytes # 2.2 10^3/uL (0.8-4.8); Lymphocytes % 26.6 %; Mean Corpuscular HGB Conc 33.5 g/dL (30.0-36.0); Mean Corpuscular Hemoglobin 29.3 pg (28.0-34.0); Mean Corpuscular Volume 87.6 fl (81-99); Mean Platelet Volume 9.4 fL (7.4-10.4); Monocytes # 0.8 10^3/uL (0.2-0.9); Neutrophils # 4.72 10^3/uL (1.8-7.7); Neutrophils % 57.7 %; Nucleated Red Blood Cells % 0 %; Platelet Count 390 10^3/cmm (130-400); Red Blood Count 3.14 10^6/uL (4.1-5.3); Red Cell Distribution Width 13.1 % (12.1-15.1); White Blood Count 8.2 10^3/uL (4.0-10.0)
[2022-02-12] MEDS: HYDROmorphone 1 mg/mL INJ 1 mL 0.5 MG IVP ×2 (06:32→11:15)
[2022-02-12 06:54] LABS: Alanine Aminotransferase 24 U/L (0-33); Albumin Level 2.9 g/dL (3.5-5.2); Alkaline Phosphatase 115 IU/L (35-105); Anion Gap 15.4 (5-19); Aspartate Amino Transferase 26 U/L (0-32); Blood Urea Nitrogen 11 mg/dL (6-20); Carbon Dioxide 25 mmol/L (22-29); Chloride 101 mmol/L (98-107); Globulin 3.4 g/dL (1.3-4.6); Glomerular Filtration Rate 126.3 mL/min (90-130); Glucose 124 mg/dL (65-115); Osmolality Calculated 287 mOsm/kg (285-295); Potassium 3.4 mmol/L (3.5-5.1); Sodium 138 mmol/L (136-145); Total Bilirubin 0.4 mg/dL (0.15-1.2); Total Protein 6.3 g/dL (6.6-8.7)
[2022-02-12 07:45] LABS: Glucose Point of Care 129 mg/dL (70-110)
[2022-02-12] MEDS: oxyCODONE-APAP 5-325 mg Tablet 1 TAB PO (08:21)
[2022-02-12] MEDS: pregabalin 100 mg Capsule PO (08:21)
[2022-02-12] MEDS: fluoxetine 20 mg Capsule 40 MG PO (08:22)
[2022-02-12] MEDS: buPROPion SR (12 HR) 100 mg Tablet PO (08:23)
[2022-02-12] MEDS: nicotine 14 mg Patch 1 PATCH TRANSDERMA (08:23)
[2022-02-12] MEDS: enoxaparin 40 mg/0.4 mL Syringe SUBCUT (11:16)
--- NOTE | 2022-02-12 11:45 | P.DS_ITS ---
Discharge Providers Date of Admission: 02/03/22 01:49 Date of Discharge: February 12, 2022 Attending Provider at Admission: David Simon Attending Provider at Discharge: Jovanny Christina MD Consults: Orthopedics: Dr. Carrasco Primary Care Provider: Nicole Louis MD Diagnoses at Discharge Discharge Diagnosis (1) Altered mental status: Status: Acute (2) Closed femur fracture: Status: Acute Qualifiers: Encounter type: initial encounter Femur location: unspecified portion of femur Fracture morphology: unspecified fracture morphology Laterality: left Qualified Code(s): S72.92XA - Unspecified fracture of left femur, initial encounter for closed fracture (3) Status post open reduction with internal fixation of fracture: Status: Acute (4) Multiple falls: Status: Acute (5) Borderline personality disorder: Status: Acute (6) Schizoaffective disorder, bipolar type: Status: Acute (7) Psychiatric care: Status: Acute (8) Hepatitis C, chronic: Status: Acute Qualifiers: Hepatic coma status: without hepatic coma Qualified Code(s): B18.2 - Chronic viral hepatitis C Reason for Visit Reason for Visit: knne pain Brief History: History as per HPI: Pleasant 61-year-old lady with past medical history of schizoaffective disorder, COPD, multiple psych medication, pulmonary hypertension, peripheral vascular disease, history of BKA who presented to the ER because she had fallen down when trying to get into bed, states that she had fallen several times trying to get into her bed which she says is too high.? Subsequently with left leg pain, with noted distal left femoral fracture with displacement and angulation. States that with getting sweaty she removes her prosthesis. She reports that she has overall been having more difficulties with mobility recently, states that she has been having to crawl to get around at home.? Apart from intermittent headache, she denies new developments in her health. Hospital Course Hospital Course Patient was admitted to the hospital on 02/03. Orthopedics was consulted and she underwent ORIF of left distal femur on 02/04. She tolerated the procedure well. Her post operative stay in the hospital was complicated by her developing acute altered mental status which was thought to be secondary to withdrawal from multiple psych medications along with development of hyponatremia from poor oral intake. She was transferred to ICU and was given her psych medication through NG tube after which her mentation improved and has been back to baseline for last 48 to 60 hours. Since then patient has been working well with physical therapy. Diet has been advanced as per swallow evaluation. She has been discharged in hemodynamically stable condition to SNF for further rehabilitation. Multiple psych medication doses have been changed. Going forward she was to take bupropion 100 mg twice daily, fluoxetine 40 mg daily, Seroquel 500 mg daily, pregabalin 100 mg twice daily. Physical Exam Narrative: General: No acute distress, AO x3 HEENT: PERRLA, pupils bilaterally equal and reactive Chest: Normal vesicular breath sounds, no added sounds, equal good air entry bilaterally CVS: S1-S2 regular, no murmurs, no tachycardia, no gallops, no rubs Abdomen: Soft, nontender, no organomegaly, bowel sounds present Neuro: No focal deficits, moving all 4 limbs Extremities: Right BKA, left leg surgically bandaged Urinary Catheter Management: [place]: Cath Placed During This Visit: yes Reason for Continuing Indwelling Catheter: Accurate Measurement of Urinary Output in Critically Ill Patients Urinary Catheter Date of Insertion: 02/03/22 Urinary Catheter Time of Insertion: 03:45 Discharge Data Studies Completed and Pending Completed Studies During Hospitalization Category Date Time Status CT head wo con* [id number] Routine Cat Scan 02/10/22 08:00 Completed CXRP [XR chest 1V portable [id number]] Routine Exams 02/05/22 23:12 Completed XR abdomen 1V* [id number] Stat Exams 02/09/22 20:31 Completed XR chest 1V portable [id number] Urgent Exams 02/03/22 01:28 Completed XR femur LT 1V [id number] Urgent Exams 02/03/22 07:53 Completed XR femur LT 1V [id number] Urgent Exams 02/03/22 08:55 Completed XR femur LT min 2V* [id number] Routine Exams 02/04/22 14:04 Completed XR knee LT 1-2V [id number] Stat Exams 02/03/22 01:00 Completed Radiology Impressions Knee X-Ray 02/03/22 01:00 IMPRESSION: Fracture of the distal left femur, details above. Femur X-Ray 02/04/22 14:04 Impression: Internal fixation of distal left femoral fracture. Chest X-Ray 02/05/22 23:12 IMPRESSION: 1. Increased linear and interstitial opacities in the lower hemithoraces, findings that may represent a bilateral interstitial pneumonitis. 2. Probable small pleural effusion Abdomen X-Ray 02/09/22 20:31 IMPRESSION: 1. No acute cardiopulmonary process. 2. Interval placement of a feeding tube with the tip in the body of the stomach. 3. Incidental/nonacute findings are listed in the report. Head CT 02/10/22 08:00 IMPRESSION: 1. No evidence of intracranial hemorrhage or mass effect. 2. Mild small vessel changes. Moderate parenchymal volume loss. 3. 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 No acute intracranial findings. Laboratory Results WBC 8.2 10^3/uL (4.0-10.0) 02/12/22 05:09 RBC 3.14 10^6/uL (4.1-5.3) L 02/12/22 05:09 Hgb 9.2 g/dL (11.5-15.3) L 02/12/22 05:09 Hct 27.5 % (37.0-47.0) L 02/12/22 05:09 MCV 87.6 fl (81-99) 02/12/22 05:09 MCH 29.3 pg (28.0-34.0) 02/12/22 05:09 MCHC 33.5 g/dL (30.0-36.0) 02/12/22 05:09 RDW 13.1 % (12.1-15.1) 02/12/22 05:09 Plt Count 390 10^3/cmm (130-400) 02/12/22 05:09 MPV 9.4 fL (7.4-10.4) 02/12/22 05:09 Neut % (Auto) 57.7 % 02/12/22 05:09 Lymph % (Auto) 26.6 % 02/12/22 05:09 M[place]ulloch % (Auto) 10.0 % 02/12/22 05:09 Eos % (Auto) 2.2 % 02/12/22 05:09 Baso % (Auto) 0.6 % 02/12/22 05:09 Neut # (Auto) 4.72 10^3/uL (1.8-7.7) 02/12/22 05:09 Lymph # (Auto) 2.2 10^3/uL (0.8-4.8) 02/12/22 05:09 Mcculloch # (Auto) 0.8 10^3/uL (0.2-0.9) 02/12/22 05:09 Eos # (Auto) 0.2 10^3/uL (0.0-0.8) 02/12/22 05:09 Baso # (Auto) 0.1 10^3/uL (0.0-0.1) 02/12/22 05:09 Nucleated RBC % (auto) 0 % 02/12/22 05:09 Nucleated RBCs # 0.0 /100WBC 02/12/22 05:09 PT 14.40 SECONDS (12.1-14.9) 02/03/22 02:15 INR 1.09 (0.8-1.2) 02/03/22 02:15 Sodium 138 mmol/L (136-145) 02/12/22 05:09 Potassium 3.4 mmol/L (3.5-5.1) L 02/12/22 05:09 Chloride 101 mmol/L (98-107) 02/12/22 05:09 Carbon Dioxide 25 mmol/L (22-29) 02/12/22 05:09 Anion Gap 15.4 (5-19) 02/12/22 05:09 BUN 11 mg/dL (6-20) 02/12/22 05:09 Creatinine 0.5 mg/dL (0.5-0.9) 02/12/22 05:09 GFR Calculation 126.3 mL/min (90-130) 02/12/22 05:09 Glucose 124 mg/dL (65-115) H 02/12/22 05:09 POC Glucose 129 mg/dL (70-110) H 02/12/22 07:19 Estimat Average Glucose 128 02/10/22 05:04 Hemoglobin A1c 6.1 % (4.0-6.0) H 02/10/22 05:04 Calculated Osmolality 287 mOsm/kg (285-295) 02/12/22 05:09 Calcium 9.0 mg/dL (8.5-10.5) 02/12/22 05:09 Iron 29 ug/dL (37-145) L 02/09/22 03:42 TIBC 195 mcg/dl 02/09/22 03:42 % Saturation 14.8 % (20-50) L 02/09/22 03:42 Unsat Iron Binding 166 ug/dL (112-347) 02/09/22 03:42 Total Bilirubin 0.4 mg/dL (0.15-1.2) 02/12/22 05:09 AST 26 U/L (0-32) 02/12/22 05:09 ALT 24 U/L (0-33) 02/12/22 05:09 Alkaline Phosphatase 115 IU/L (35-105) H 02/12/22 05:09 Ammonia 21 umol/L (11-51) 02/09/22 20:24 Total Protein 6.3 g/dL (6.6-8.7) L 02/12/22 05:09 Albumin 2.9 g/dL (3.5-5.2) L 02/12/22 05:09 Globulin 3.4 g/dL (1.3-4.6) 02/12/22 05:09 Vitamin B12 408 pg/mL (232-1245) 02/09/22 03:42 Folate > 20.0 ng/mL (4.8-37.3) 02/09/22 12:57 TSH 0.62 uIU/mL (0.27-4.20) 02/09/22 03:42 Urine Color Yellow (Yellow) 02/06/22 01:47 Urine Appearance Clear (CLEAR) 02/06/22 01:47 Urine pH 6 (5-7) 02/06/22 01:47 Ur Specific [place] 1.020 (1.005-1.030) 02/06/22 01:47 Urine Protein Trace (Negative) 02/06/22 01:47 Urine Glucose (UA) Norm (Normal) 02/06/22 01:47 Urine Ketones 2+ (Negative) H 02/06/22 01:47 Urine Blood 2+ (Negative) H 02/06/22 01:47 Urine Nitrate Negative (Negative) 02/06/22 01:47 Urine Bilirubin 1+ (Negative) H 02/06/22 01:47 Urine Urobilinogen 1 mg/dL (Negative) H 02/06/22 01:47 Ur Leukocyte Esterase Negative (Negative) 02/06/22 01:47 Urine RBC 0-4 /hpf (0-2) H 02/06/22 01:47 Urine WBC 10-15 /hpf (0-5) H 02/06/22 01:47 Ur Squamous Epith Cells 0-4 /hpf (0-5) H 02/06/22 01:47 Calcium Oxalate Crystal 0-4 /hpf H 02/06/22 01:47 Amorphous Sediment Not Reportable 02/06/22 01:47 Urine Bacteria Trace /hpf (NONE) 02/06/22 01:47 Urine Mucus 1+ /hpf 02/06/22 01:47 Vitals Last Vital Signs Temp 98.4 F 02/12/22 08:08 Pulse 92 02/12/22 08:53 Resp 18 02/12/22 11:15 BP 137/81 02/12/22 08:00 Pulse Ox 94 02/12/22 11:15 Discharge Plan Discharge Patient Disposition: Xfer [facility] Condition: Stable Prescriptions: New pregabalin 100 mg Capsule 100 mg PO BID Qty: 60 0RF nicotine 14 mg/24 hr Patch 24 Hour 1 patch transdermal DAILY Qty: 30 0RF bupropion HCl 100 mg Tablet Sustained-Release 12 Hr 100 mg PO BID Qty: 60 0RF quetiapine 100 mg Tablet 500 mg PO BEDTIME 30 Days Qty: 150 0RF Continued epinephrine [EpiPen 2-Reji] 0.3 mg/0.3 mL auto-injector 0.3 mg IM Q15M PRN (Reason: anaphylaxis) Qty: 2 0RF Rx Instructions: for 2 doses miscellaneous medical supply Misc See Rx Instructions miscellaneous .COMPLEX Qty: 1 0RF Rx Instructions: motorized wheelchair miscellaneous; Anoro Ellipta 62.5-25 mcg/actuation blister with device 1 inh inhalation DAILY 30 Days Qty: 60 3RF promethazine 12.5 mg tablet 12.5 mg PO DAILY PRN (Reason: nausea and vomiting) 30 Days Qty: 30 5RF One Daily 27 mg iron- 800 mcg tablet 1 tab PO DAILY 90 Days Qty: 90 1RF potassium chloride 20 mEq tablet,ER particles/crystals 20 meq PO DAILY 30 Days Qty: 30 5RF albuterol sulfate 90 mcg/actuation HFA aerosol inhaler 2 puff INHALATION Q6H PRN (Reason: shortness of breath or wheezing) 30 Days Qty: 18 5RF budesonide 0.5 mg/2 mL suspension for nebulization 0.5 mg inhalation BID Qty: 60 5RF albuterol sulfate 2.5 mg /3 mL (0.083 %) solution for nebulization 2.5 mg inhalation Q4H PRN (Reason: shortness of breath or wheezing) Qty: 180 5RF dextromethorphan polistirex 30 mg/5 mL suspension,extended rel 12 hr 10 ml PO Q12H PRN (Reason: cough) Qty: 89 0RF famotidine 20 mg tablet 20 mg PO BID 30 Days Qty: 60 5RF miscellaneous medical supply Misc See Rx Instructions miscellaneous .COMPLEX Qty: 1 0RF Rx Instructions: Wheelchair miscellaneous ; lamotrigine 100 mg tablet 150 mg PO QAM Qty: 45 0RF quetiapine 300 mg tablet 600 - 750 mg PO BEDTIME Qty: 75 0RF varenicline [Chantix Continuing Month Box] 1 mg tablet 1 mg PO BID Qty: 56 0RF ibuprofen 800 mg tablet 800 mg PO TID PRN (Reason: pain) 30 Days Qty: 90 2RF Rx Instructions: WITH FOOD Changed fluoxetine 40 mg capsule 40 mg PO DAILY Qty: 60 0RF Discontinued pregabalin 200 mg capsule 200 mg PO TID 30 Days Qty: 90 2RF bupropion HCl 150 mg tablet sustained-release 12 hr 300 mg PO QAM Qty: 60 0RF Discharge Orders: Discharge Order (Routine); Ordered 02/12/22 Ordered By: Jovanny Christina Referrals: [facility] [Staff Physician] - Perico Carrasco MD [Physician] - 1 month Nicole Louis MD [Primary Care Provider] - 1 week Discharge Diet: As Directed Discharge Activity: Resume usual activity and Increase activity as tolerated Patient Instructions: Opioid Safety Activity Restrictions/Additional Instructions: Leave dressings in place Strict nonweightbearing left lower extremity Range of motion left knee hip and ankle as tolerated Multiple medication has been changed. Bupropion dose has been decreased to 100 mg twice daily. Pregabalin dose has been changed to 100 mg twice daily. Seroquel dose has been changed to 500 mg daily. Fluoxetine dose has been changed to 40 mg daily. Discharge Attestations Time Spent in Discharge Care*: greater than 30 min Specific Discharge Activities: educating patient, educating and/or supporting family/caregiver, discussing with housing case manager/social workers/dc planners, documenting/other paperwork and evaluating patient/reviewing data Status at Discharge: Cognitive status at discharge: mildly impaired cognition , Behavioral status at discharge: cooperative , Functional status at discharge: other assisted ambulation , Overall status at discharge: patient is back to baseline Quality Metrics Clinical Quality Measures [ No reported AMI, CVA or VTE this stay] Coding Level of Care Code Acute Chg FW DC note Diagnoses Altered mental status R41.82 Closed femur fracture S72.92XA Encounter type: initial encounter Femur location: unspecified portion of femur Fracture morphology: unspecified fracture morphology Laterality: left Status post open reduction with internal fixation of fracture Z98.890; Z87.81 Multiple falls R29.6 Borderline personality disorder F60.3 Schizoaffective disorder, bipolar type F25.0 Psychiatric care Hepatitis C, chronic B18.2 Hepatic coma status: without hepatic coma
[2022-02-12 12:12] LABS: Glucose Point of Care 170 mg/dL (70-110)
[2022-02-12 13:23] LABS: SARS Covid-2 Antigen Negative (Negative)
--- NOTE | 2022-02-12 14:01 | PC.NURSE ---
Patient has been transferred to [facility] for group home care. Paitent taken via [facility] ambulance. Report given to Samira at [facility]. IV removed. Chaudhry left in place per request of [facility]. [facility] attempted to send prescriptions to [facility] pharmacy, which [facility] uses, but [facility] rep told nurse that the receiving facility will send them a prescription list after they review and approve the medications. Belonging sent with patient included a cell phone, clothing, and her prosthetic leg.
== END 2022-02-12 14:07 | disposition skilled nursing facility (03) | DRG 481 ==
LOC: ER 01:56 → MEDSURG 02:34 → ICU 02-09 17:51
PROVIDERS: Emergency Medicine; Internal Medicine; Orthopaedic Surgery; Admitting Provider Internal Medicine; Emergency Provider Physician Assistant; PCP Family Medicine; Visit Provider Student in an Organized Health Care Education/Training Program
PROC: 0QS904Z Reposition Left Femoral Shaft with Internal Fixation Device, Open Approach (ICD-10-PCS; principal; 2022-02-04 12:00)
DX: S72.342A Displaced spiral fracture of shaft of left femur, initial encounter for closed fracture (principal); E87.0 Hyperosmolality and hypernatremia; F15.20 Other stimulant dependence, uncomplicated; W01.0XXA Fall on same level from slipping, tripping and stumbling without subsequent striking against object, initial encounter; F60.3 Borderline personality disorder; G89.4 Chronic pain syndrome; J44.9 Chronic obstructive pulmonary disease, unspecified; M50.30 Other cervical disc degeneration, unspecified cervical region; M47.816 Spondylosis without myelopathy or radiculopathy, lumbar region; K21.9 Gastro-esophageal reflux disease without esophagitis; B18.2 Chronic viral hepatitis C; F17.210 Nicotine dependence, cigarettes, uncomplicated; F11.21 Opioid dependence, in remission; I27.20 Pulmonary hypertension, unspecified; I73.9 Peripheral vascular disease, unspecified; F25.0 Schizoaffective disorder, bipolar type; Z89.511 Acquired absence of right leg below knee; R41.82 Altered mental status, unspecified; T43.96XA Underdosing of unspecified psychotropic drug, initial encounter; Y63.8 Failure in dosage during other surgical and medical care; Z79.51 Long term (current) use of inhaled steroids
CPT/HCPCS: 36415; 36416; 51702; 70450; 71045; 73551; 73552; 73560; 74018; 76000; 80048; 80053; 81001; 82140; 82607; 82746; 82962; 83036; 83540; 83550; 84443; 85025; 85610; 87040; 87426; 92523; 92526; 92610; 93005; 94640; 96372; 96374; 96375; 97110; 97161; 97167; 97530; 97535; 99285; A4570; C1713; J0690; J0696; J1100; J1170; J1200; J1630; J1650; J1815; J2060; J2250; J2270; J2370; J2405; J2704; J3010; J3260; J3486; J3490

== ENCOUNTER → 2022-03-10 08:49 | Outpatient (BNVA) | payer MEDICAID, SELFPAY | PROVIDERS: PCP Family Medicine; Visit Provider Orthopaedic Surgery | DX: Z98.890 Other specified postprocedural states (principal); Z87.81 Personal history of (healed) traumatic fracture | CPT/HCPCS: 73552; 99024 ==

== ENCOUNTER 2022-03-16 00:47 | Emergency (ER) | payer MEDICAID, SELFPAY ==
--- NOTE | 2022-03-16 00:51 | XRR_ITS ---
PROCEDURE INFORMATION: Exam: XR Left Knee Exam date and time: 03/16/2022 1:49 AM Age: 61 years old Clinical indication: Pain; Ankle; Left; Prior surgery; Surgery date: 3-7 days post-operative; Additional info: Injury TECHNIQUE: Imaging protocol: Radiologic exam of the Left knee. Views: 3 views. COMPARISON: CR XR knee LT 1-2V [id number] 02/03/2022 1:25 AM FINDINGS: Bones/joints: Distal femoral screw plate fixation hardware partially visualized. Persistent oblique flexure line through the distal femoral diaphysis. The medial joint space is significantly narrowed with osteophyte formation. The lateral joint space is well maintained and demonstrates osteophyte formation. Flabella noted. Soft tissues: No large knee joint effusion is present. XR/XR knee LT 3V* [id number] IMPRESSION: 1. Partially visualized distal femoral screw and plate fixation hardware appears intact. Persistent fracture line in the distal femur. 2. Osteoarthritic changes in the knee joint most predominant in the medial compartment.
[2022-03-16 00:53] VITALS: BP 97/76; PULSE 91; RESP 22; TEMP 36.9; O2SAT 95; BMI 36.9
--- NOTE | 2022-03-16 00:54 | XRR_ITS ---
PROCEDURE INFORMATION: Exam: XR Left Ankle Exam date and time: 03/16/2022 1:49 AM Age: 61 years old Clinical indication: Pain; Ankle; Left; Prior surgery; Surgery date: 3-7 days post-operative; Additional info: Injury TECHNIQUE: Imaging protocol: Radiologic exam of the Left ankle. Views: 3 or more views. COMPARISON: CR XR ankle LT min 3V* [id number] 06/24/2020 1:04 PM FINDINGS: Bones/joints: The ankle mortise is normally aligned. No acute fracture is seen. Prominent ankle joint space narrowing with sclerosis and osteophyte formation, similar to prior exam. Increased lucency in the medial malleolus, possibly subchondral cystic changes. Small calcaneal plantar and Achilles enthesophytes. Soft tissues: No tibio-talar joint effusion is present. Kager's fat pad is normal. Mild soft tissue swelling surrounding the ankle joint. XR/XR ankle LT min 3V* [id number] IMPRESSION: 1. No evidence of fracture. 2. Significant degenerative changes in the ankle joint similar to prior exam.
[2022-03-16] MEDS: HYDROcodone-acetaminophen 7.5-325 mg Tablet 1 TAB PO (00:55)
--- NOTE | 2022-03-16 00:55 | W.ED.EXTPRO ---
HPI - Extremity Problem General: Chief complaint: Extremity Injury, Lower Stated complaint: LEFT KNEE PAIN Time Seen by Provider: 03/16/22 00:48 Source: patient Mode of arrival: ambulatory Limitations: no limitations History of Present Illness: 61-year-old female who has a history of a BKA of the right leg she had a femur fracture to the left leg a little over a month ago. Patient had been staying at a rehab facility states she is recently discharged she states that today she did have a help her house and she been crawling around her house to do things and feels like she had injured her left knee again. She has had knee pain she rates a 5 out of 10 denies any falls denies any fever. Associated symptoms: Deny chest pain, fever(s) or rash Review of Systems Const: Denies: fever(s), chills, body aches or change in appetite Eyes: Denies: blurry vision or eye discomfort ENMT: Denies: throat pain or dental pain Card: Denies: chest pain Resp: Denies: dyspnea GI: Denies: abdominal pain, nausea, vomiting or diarrhea : Denies: dysuria Musc: Reports: extremity pain; Denies: neck pain or back pain Skin/Breast: Denies: rash Neuro: Denies: headache(s) Psych: Denies: depression Beau/Lymph: Denies: easy bruising All/Imm: Denies: urticaria PFSH ED PFSH: Medical History Amphetamine addiction Anxiety Aspiration of foreign body in respiratory tract Borderline personality disorder Chronic idiopathic pain syndrome Chronic pain syndrome COPD (chronic obstructive pulmonary disease) DDD (degenerative disc disease), cervical DJD (degenerative joint disease), lumbar GERD (gastroesophageal reflux disease) Hepatitis C, chronic History of intravenous drug abuse Interstitial lung disease Nicotine dependence, cigarettes, with other nicotine-induced disorders Opioid dependence, in remission Other stimulant dependence, in remission Partial small bowel obstruction Psychiatric care Pulmonary hypertension PVD (peripheral vascular disease) with claudication Respiratory failure with hypoxia Schizoaffective disorder, bipolar type Surgical History H/O tubal ligation Hx of BKA S/P cholecystectomy S/P tonsillectomy Family History Other CAD (coronary artery disease) Diabetes Lung disease Stroke Social History Smoking and tobacco status: current every day smoker cigarettes Years cigarettes smoked: 40 [ Other cigarette details: Hx of 1 PPD x 40 Years] Quit status (tobacco): considering quitting Second hand smoke exposure: Yes Smoking risk assessment/counseling performed?: Yes Alcohol intake: former Counseling given: No Counseling given: No Lives independently: Yes Household members: none Marital status: Current occupational status: disabled History of recent travel: No Current gender identity: Female Female Reproductive History: Date of last menstrual period: 10/24/20 Spontaneous abortions: No Physical Exam Const: COMMON NORMALS: no acute distress, patient oriented x3 and healthy appearing HENMT: COMMON NORMALS: normocephalic and atraumatic HEAD & SCALP: normocephalic and atraumatic Eye: COMMON NORMALS: Equal, round and reactive pupils present and EOMs intact bilaterally PUPIL: Yes Equal, round and reactive pupils present Neck/C-Spine: COMMON NORMALS: full ROM and supple Chest: COMMONS NORMALS: normal inspection of the chest and normal palpation of entire chest wall Resp: COMMON NORMALS: normal respiratory effort, No retractions, No use of accessory muscles and clear to auscultation bilaterally AUSCULTATION: clear to auscultation bilaterally Cardio: COMMON NORMALS: regular rate, regular rhythm and No murmurs present (Cardio) RATE: regular rate RHYTHM: regular rhythm GI: COMMON NORMALS: Normal to inspection, nondistended, normoactive bowel sounds present, Soft to palpation, non-tender and no masses PALPATION: Yes Soft to palpation Extremity: NARRATIVE EXTREMITY EXAM: Tenderness over the left knee and left ankle no obvious deformities incision left knee is clean dry intact no signs of infection Neuro: COMMON NORMALS: patient oriented x3, moves all extremities and no focal motor deficits Psych: COMMON NORMALS: mental status grossly normal, Normal thought process present and cooperative THOUGHT PROCESS: Normal thought process present Skin: COMMON NORMALS: no rashes or lesions noted and no wounds GENERAL SKIN EXAM: no rashes or lesions noted Course Vital Signs: Vital signs: Vital Signs Temperature 98.4 F 03/16/22 00:53 Pulse Rate 84 03/16/22 02:52 Respiratory Rate 18 03/16/22 02:52 Blood Pressure 145/65 03/16/22 02:52 Pulse Oximetry 95 03/16/22 02:52 Oxygen Delivery Me thod 03/16/22 02:27 MDM - Extremity (Nontraumatic) Medical Decision Making Patient presents here with knee pain x-ray shows no signs of a fracture placed her knee immobilizer she is to follow-up with her surgeon return if worsening she understands agrees to plan. Discharge Plan Discharge Patient Disposition: Home Clinical Impression: Pain in left knee Condition: Stable Prescriptions: No Action epinephrine [EpiPen 2-Reji] 0.3 mg/0.3 mL auto-injector 0.3 mg IM Q15M PRN (Reason: anaphylaxis) Qty: 2 0RF Rx Instructions: for 2 doses miscellaneous medical supply Misc See Rx Instructions miscellaneous .COMPLEX Qty: 1 0RF Rx Instructions: motorized wheelchair miscellaneous; Anoro Ellipta 62.5-25 mcg/actuation blister with device 1 inh inhalation DAILY 30 Days Qty: 60 3RF promethazine 12.5 mg tablet 12.5 mg PO DAILY PRN (Reason: nausea and vomiting) 30 Days Qty: 30 5RF One Daily 27 mg iron- 800 mcg tablet 1 tab PO DAILY 90 Days Qty: 90 1RF potassium chloride 20 mEq tablet,ER particles/crystals 20 meq PO DAILY 30 Days Qty: 30 5RF albuterol sulfate 90 mcg/actuation HFA aerosol inhaler 2 puff INHALATION Q6H PRN (Reason: shortness of breath or wheezing) 30 Days Qty: 18 5RF budesonide 0.5 mg/2 mL suspension for nebulization 0.5 mg inhalation BID Qty: 60 5RF albuterol sulfate 2.5 mg /3 mL (0.083 %) solution for nebulization 2.5 mg inhalation Q4H PRN (Reason: shortness of breath or wheezing) Qty: 180 5RF dextromethorphan polistirex 30 mg/5 mL suspension,extended rel 12 hr 10 ml PO Q12H PRN (Reason: cough) Qty: 89 0RF famotidine 20 mg tablet 20 mg PO BID 30 Days Qty: 60 5RF miscellaneous medical supply Misc See Rx Instructions miscellaneous .COMPLEX Qty: 1 0RF Rx Instructions: Wheelchair miscellaneous ; lamotrigine 100 mg tablet 150 mg PO QAM Qty: 45 0RF quetiapine 300 mg tablet 600 - 750 mg PO BEDTIME Qty: 75 0RF varenicline [Chantix Continuing Month Box] 1 mg tablet 1 mg PO BID Qty: 56 0RF ibuprofen 800 mg tablet 800 mg PO TID PRN (Reason: pain) 30 Days Qty: 90 2RF Rx Instructions: WITH FOOD hydrocodone-acetaminophen 5-325 mg tablet 1 tab PO Q4H PRN (Reason: pain) 7 Days Qty: 30 0RF miscellaneous medical supply Misc See Rx Instructions miscellaneous .COMPLEX Qty: 1 0RF Rx Instructions: leg parts due to broken prostetics fluoxetine 20 mg capsule 20 mg PO DAILY Qty: 30 0RF nicotine 14 mg/24 hr Patch 24 Hour 1 patch transdermal DAILY Qty: 30 0RF bupropion HCl 100 mg Tablet Sustained-Release 12 Hr 100 mg PO BID Qty: 60 0RF pregabalin 100 mg Capsule 100 mg PO BID Qty: 60 0RF Discharge Orders: Discharge ED (Routine); Ordered 03/16/22 Ordered By: Odilon Trejo Referrals: Nicole Louis MD [Primary Care Provider] - 1-3 days Discharge Diet: Advance as tolerated Discharge Activity: Resume usual activity Patient Instructions: Knee Pain (ED) Coding Level of Care Code ED Credit Balance Specialist 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
[2022-03-16 02:27] VITALS: BP 152/94; PULSE 116; RESP 18; O2SAT 92
[2022-03-16 02:52] VITALS: BP 145/65; PULSE 84; RESP 18; O2SAT 95
== END 2022-03-16 02:47 | disposition home or self-care (01) ==
PROVIDERS: Emergency Provider Emergency Medicine; PCP Family Medicine
DX: M25.562 Pain in left knee (principal); J44.9 Chronic obstructive pulmonary disease, unspecified; Z86.19 Personal history of other infectious and parasitic diseases; F17.210 Nicotine dependence, cigarettes, uncomplicated; Z89.511 Acquired absence of right leg below knee
CPT/HCPCS: 29530; 73562; 73610; 99283

== ENCOUNTER → 2022-04-21 15:40 | Outpatient (BNVA) | payer MEDICAID, SELFPAY | PROVIDERS: PCP Family Medicine; Visit Provider Orthopaedic Surgery | DX: Z98.890 Other specified postprocedural states (principal); Z87.81 Personal history of (healed) traumatic fracture | CPT/HCPCS: 73552; 99024 ==

== ENCOUNTER 2022-05-17 19:15 | Emergency (ER) | payer MEDICAID, SELFPAY ==
[2022-05-17 19:16] VITALS: BP 127/78; PULSE 82; RESP 20; TEMP 36.8; O2SAT 95; BMI 39.9
--- NOTE | 2022-05-17 19:30 | XRR_ITS ---
PROCEDURE INFORMATION: Exam: XR Left Femur Exam date and time: 05/17/2022 7:48 PM Age: 62 years old Clinical indication: Thigh; Prior surgery; Surgery date: 1-6 months; Surgery type: Left femur pinning and left hip; Patient HX: Acute left femur pain, HX surgery January 2022 per PT, PT is extremely uncooperative. 4 people needed to obtain xrays TECHNIQUE: Imaging protocol: Radiologic exam of the Left femur. Views: 2 views. COMPARISON: CR XR femur LT 1V [id number] 02/03/2022 7:58 AM FINDINGS: Bones/joints: Post left total hip replacement. Acetabular and femoral components appear intact and in satisfactory alignment. Partial union of chronic fractures through the distal femur stabilized by a metallic plate and screw fixation device along the lateral aspect of the distal femur. Obliquely oriented screws traverse a fracture site as well. Distal femur is in satisfactory alignment. Hardware appears intact without obvious complication. Soft tissues: Unremarkable. XR/XR femur LT min 2V* [id number] IMPRESSION: There is partial/incomplete union of chronic fractures through the distal femur stabilized by a metallic plate and screw fixation device. Hardware appears intact without obvious complication.
[2022-05-17 19:39] VITALS: RESP 20
[2022-05-17] MEDS: fentaNYL 50 mcg/mL INJ 2mL IVP (19:39)
--- NOTE | 2022-05-17 19:39 | W.ED.EXTPRO ---
HPI - Extremity Problem General: Chief complaint: Extremity Injury, Lower Stated complaint: left leg pain Time Seen by Provider: 05/17/22 19:39 History of Present Illness: 62-year-old female comes in today for complaints of increased pain to her left upper leg for the last 2 days. Patient reports no acute injury. Patient has a history of open reduction internal fixation to the leg at the end of March. No significant swelling is noted in the distal part of the leg. Patient is also of amputation of the lower leg on the right side. Patient has a history of substance abuse, borderline personality disorder, schizoaffective disorder, chronic pain syndrome. Patient has been prescribed ibuprofen for her pain at home. Review of Systems General: Reports: 10 or more systems reviewed and unremarkable except in HPI and below Musc: Reports: extremity pain (Left upper leg pain) [facility] PFSH: Medical History Amphetamine addiction Anxiety Aspiration of foreign body in respiratory tract Borderline personality disorder Chronic idiopathic pain syndrome Chronic pain syndrome COPD (chronic obstructive pulmonary disease) DDD (degenerative disc disease), cervical DJD (degenerative joint disease), lumbar GERD (gastroesophageal reflux disease) Hepatitis C, chronic History of intravenous drug abuse Interstitial lung disease Nicotine dependence, cigarettes, with other nicotine-induced disorders Opioid dependence, in remission Other stimulant dependence, in remission Partial small bowel obstruction Psychiatric care Pulmonary hypertension PVD (peripheral vascular disease) with claudication Respiratory failure with hypoxia Schizoaffective disorder, bipolar type Surgical History H/O tubal ligation Hx of BKA S/P cholecystectomy S/P tonsillectomy Family History Other CAD (coronary artery disease) Diabetes Lung disease Stroke Social History Smoking and tobacco status: current every day smoker (on chantix to help quit) cigarettes Years cigarettes smoked: 40 [ Other cigarette details: Hx of 1 PPD x 40 Years] Quit status (tobacco): considering quitting Second hand smoke exposure: Yes Smoking risk assessment/counseling performed?: Yes Alcohol intake: former Counseling given: No Counseling given: No Lives independently: Yes Household members: none Marital status: Current occupational status: disabled History of recent travel: No Current gender identity: Female Female Reproductive History: Date of last menstrual period: 10/24/20 Spontaneous abortions: No Physical Exam Const: COMMON NORMALS: alert HENMT: COMMON NORMALS: normocephalic HEAD & SCALP: normocephalic Resp: COMMON NORMALS: normal respiratory effort Cardio: COMMON NORMALS: regular rate RATE: regular rate Back/Pelvis: COMMON NORMALS: thoracic and lumbar spine normal to inspection Extremity: LEFT LOWER EXTREMITY: Yes upper leg (Left upper extremity tenderness to palpation, and minimal to no swelling) Left upper leg: Yes inspection, Yes palpation and Yes neurovascular exam and Yes lower leg (No swelling no calf pain) Neuro: SENSORIUM/ORIENTATION: Yes alert Skin: COMMON NORMALS: turgor normal GENERAL SKIN EXAM: turgor normal Course Vital Signs: Vital signs: Vital Signs Temperature 98.2 F 05/17/22 19:16 Pulse Rate 80 05/17/22 20:55 Respiratory Rate 18 05/17/22 20:55 Blood Pressure 127/78 05/17/22 20:55 Pulse Oximetry 97 05/17/22 20:55 Oxygen Delivery Me thod 05/17/22 20:55 MDM - Extremity (Nontraumatic) Medical Decision Making 62-year-old female comes in today for evaluation of her left upper leg pain. Patient denies any falls or injury. Patient reports increased pain and discomfort for the last 2 days. On exam patient has no significant swelling or redness to the leg. Patient has tenderness in the thigh. Distal pulses and sensation are intact. Differential diagnosis includes fracture, contusion, malingering, chronic pain syndrome. X-ray noted no acute abnormalities. Hardware appeared well intact. Laboratory values noted a normal CBC with a 7.0 white count. CMP was unremarkable. CRP was slightly elevated at 47. I did not find anything that showed signs of infection at this time. Believe the pain is probably related to her chronic pain syndrome. Patient was treated for pain and recommended to follow-up with primary care to talk about consideration of pain management. Lab Data : 05/17/22 20:53 05/17/22 20:53 Radiology Impressions Femur X-Ray 05/17/22 19:30 IMPRESSION: There is partial/incomplete union of chronic fractures through the distal femur stabilized by a metallic plate and screw fixation device. Hardware appears intact without obvious complication. Laboratory Results WBC 7.0 10^3/uL (4.0-10.0) 05/17/22 20:53 RBC 4.04 10^6/uL (4.1-5.3) L 05/17/22 20:53 Hgb 11.5 g/dL (11.5-15.3) 05/17/22 20:53 Hct 35.7 % (37.0-47.0) L 05/17/22 20:53 MCV 88.4 fl (81-99) 05/17/22 20:53 MCH 28.5 pg (28.0-34.0) 05/17/22 20:53 MCHC 32.2 g/dL (30.0-36.0) 05/17/22 20:53 RDW 14.1 % (12.1-15.1) 05/17/22 20:53 Plt Count 283 10^3/cmm (130-400) 05/17/22 20:53 MPV 9.1 fL (7.4-10.4) 05/17/22 20:53 Neut % (Auto) 55.7 % 05/17/22 20:53 Lymph % (Auto) 29.9 % 05/17/22 20:53 [place] % (Auto) 10.2 % 05/17/22 20:53 Eos % (Auto) 3.3 % 05/17/22 20:53 Baso % (Auto) 0.6 % 05/17/22 20:53 Neut # (Auto) 3.92 10^3/uL (1.8-7.7) 05/17/22 20:53 Lymph # (Auto) 2.1 10^3/uL (0.8-4.8) 05/17/22 20:53 [place] # (Auto) 0.7 10^3/uL (0.2-0.9) 05/17/22 20:53 Eos # (Auto) 0.2 10^3/uL (0.0-0.8) 05/17/22 20:53 Baso # (Auto) 0.0 10^3/uL (0.0-0.1) 05/17/22 20:53 Nucleated RBC % (auto) 0 % 05/17/22 20:53 Nucleated RBCs # 0.0 /100WBC 05/17/22 20:53 Sodium 136 mmol/L (136-145) 05/17/22 20:53 Potassium 3.7 mmol/L (3.5-5.1) 05/17/22 20:53 Chloride 103 mmol/L (98-107) 05/17/22 20:53 Carbon Dioxide 21 mmol/L (22-29) L 05/17/22 20:53 Anion Gap 15.7 (5-19) 05/17/22 20:53 BUN 6 mg/dL (8-23) L 05/17/22 20:53 Creatinine 0.6 mg/dL (0.5-0.9) 05/17/22 20:53 GFR Calculation 102.0 mL/min (90-130) 05/17/22 20:53 Glucose 112 mg/dL (65-115) 05/17/22 20:53 Calculated Osmolality 280 mOsm/kg (285-295) L 05/17/22 20:53 Calcium 8.7 mg/dL (8.5-10.5) 05/17/22 20:53 Total Bilirubin 0.2 mg/dL (0.15-1.2) 05/17/22 20:53 AST 27 U/L (0-32) 05/17/22 20:53 ALT 29 U/L (0-33) 05/17/22 20:53 Alkaline Phosphatase 271 U/L (35-105) H 05/17/22 20:53 C-Reactive Protein 47.3 mg/L (0.0-4.9) H 05/17/22 20:53 Total Protein 6.4 g/dL (6.6-8.7) L 05/17/22 20:53 Albumin 3.5 g/dL (3.5-5.2) 05/17/22 20:53 Globulin 2.9 g/dL (1.3-4.6) 05/17/22 20:53 Discharge Plan Discharge Patient Disposition: Home Clinical Impression: Pain in left thigh, Chronic pain syndrome Condition: Stable Prescriptions: New hydrocodone-acetaminophen 5-325 mg tablet 1 tab PO BID PRN (Reason: pain (scale score 7-10)) Qty: 6 0RF No Action epinephrine [EpiPen 2-Reji] 0.3 mg/0.3 mL auto-injector 0.3 mg IM Q15M PRN (Reason: anaphylaxis) Qty: 2 0RF Rx Instructions: for 2 doses miscellaneous medical supply Misc See Rx Instructions miscellaneous .COMPLEX Qty: 1 0RF Rx Instructions: motorized wheelchair miscellaneous; potassium chloride 20 mEq tablet,ER particles/crystals 20 meq PO DAILY loperamide [Anti-Diarrheal (loperamide)] 2 mg capsule 2 mg PO DIRECTED PRN Rx Instructions: Give 2 capsule after first loose stool, 1 capsule after each subsequent loose stool, but no more than 4 tabs in 24 hours. fluoxetine 40 mg capsule 80 mg PO DAILY Qty: 60 1RF quetiapine 400 mg tablet 600 - 800 mg PO BEDTIME Qty: 60 1RF lamotrigine 100 mg tablet 150 mg PO QAM Qty: 45 1RF bupropion HCl 150 mg tablet sustained-release 12 hr 150 mg PO BID Qty: 60 1RF varenicline [Chantix Continuing Month Box] 1 mg tablet 1 mg PO BID Qty: 56 1RF Anoro Ellipta 62.5-25 mcg/actuation blister with device 1 inh inhalation DAILY 30 Days Qty: 60 3RF promethazine 12.5 mg tablet 12.5 mg PO DAILY PRN (Reason: nausea and vomiting) 30 Days Qty: 30 5RF One Daily 27 mg iron- 800 mcg tablet 1 tab PO DAILY 90 Days Qty: 90 1RF albuterol sulfate 90 mcg/actuation HFA aerosol inhaler 2 puff INHALATION Q6H PRN (Reason: shortness of breath or wheezing) 30 Days Qty: 18 5RF budesonide 0.5 mg/2 mL suspension for nebulization 0.5 mg inhalation BID Qty: 60 5RF albuterol sulfate 2.5 mg /3 mL (0.083 %) solution for nebulization 2.5 mg inhalation Q4H PRN (Reason: shortness of breath or wheezing) Qty: 180 5RF dextromethorphan polistirex 30 mg/5 mL suspension,extended rel 12 hr 10 ml PO Q12H PRN (Reason: cough) Qty: 89 0RF famotidine 20 mg tablet 20 mg PO BID 30 Days Qty: 60 5RF miscellaneous medical supply Misc See Rx Instructions miscellaneous .COMPLEX Qty: 1 0RF Rx Instructions: Wheelchair miscellaneous ; ibuprofen 800 mg tablet 800 mg PO TID PRN (Reason: pain) 30 Days Qty: 90 2RF Rx Instructions: WITH FOOD miscellaneous medical supply Misc See Rx Instructions miscellaneous .COMPLEX Qty: 1 0RF Rx Instructions: leg parts due to broken prostetics pregabalin 100 mg Capsule 100 mg PO BID Qty: 60 0RF Discharge Orders: Discharge ED (Routine); Ordered 05/17/22 Ordered By: Srikanth William Referrals: Nicole Louis MD [Primary Care Provider] - Patient Instructions: Opioid Safety, Pain Management Activity Restrictions/Additional Instructions: Follow-up with primary care for further instruction and evaluation regarding your chronic pain. 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 Return to the ER for new concerns such as fever greater than 100.4, increased swelling and redness to the leg, or new concerns. Coding Level of Care Code ED Photo Optics Technician for Dorcas Fwnghia Exam Detailed
[2022-05-17 20:29] VITALS: RESP 20
[2022-05-17] MEDS: fentaNYL 50 mcg/mL INJ 2mL 25 MCG IVP (20:29)
[2022-05-17] MEDS: ketorolac 30 mg/mL INJ 15 MG IVP (20:29)
[2022-05-17 20:55] VITALS: BP 127/78; PULSE 80; RESP 18; O2SAT 97
[2022-05-17 21:02] LABS: Basophils % 0.6 %; Eosinophils # 0.2 10^3/uL (0.0-0.8); Eosinophils % 3.3 %; Hematocrit 35.7 % (37.0-47.0); Hemoglobin 11.5 g/dL (11.5-15.3); Lymphocytes # 2.1 10^3/uL (0.8-4.8); Lymphocytes % 29.9 %; Mean Corpuscular HGB Conc 32.2 g/dL (30.0-36.0); Mean Corpuscular Hemoglobin 28.5 pg (28.0-34.0); Mean Corpuscular Volume 88.4 fl (81-99); Mean Platelet Volume 9.1 fL (7.4-10.4); Monocytes # 0.7 10^3/uL (0.2-0.9); Monocytes % 10.2 %; Neutrophils # 3.92 10^3/uL (1.8-7.7); Neutrophils % 55.7 %; Nucleated Red Blood Cells % 0 %; Platelet Count 283 10^3/cmm (130-400); Red Blood Count 4.04 10^6/uL (4.1-5.3); Red Cell Distribution Width 14.1 % (12.1-15.1)
[2022-05-17 21:28] LABS: Alanine Aminotransferase 29 U/L (0-33); Albumin Level 3.5 g/dL (3.5-5.2); Alkaline Phosphatase 271 U/L (35-105); Aspartate Amino Transferase 27 U/L (0-32); Blood Urea Nitrogen 6 mg/dL (8-23); C Reactive Protein 47.3 mg/L (0.0-4.9); Calcium 8.7 mg/dL (8.5-10.5); Carbon Dioxide 21 mmol/L (22-29); Chloride 103 mmol/L (98-107); Globulin 2.9 g/dL (1.3-4.6); Glucose 112 mg/dL (65-115); Osmolality Calculated 280 mOsm/kg (285-295); Sodium 136 mmol/L (136-145); Total Bilirubin 0.2 mg/dL (0.15-1.2); Total Protein 6.4 g/dL (6.6-8.7)
[2022-05-17 21:40] LABS: Anion Gap 15.7 (5-19); Potassium 3.7 mmol/L (3.5-5.1)
[2022-05-17] MEDS: HYDROcodone-acetaminophen 7.5-325 mg Tablet 1 TAB PO (22:01)
[2022-05-17 22:02] VITALS: PULSE 99; RESP 20; O2SAT 96
== END 2022-05-17 22:02 | disposition home or self-care (01) ==
PROVIDERS: Emergency Provider Nurse Practitioner Family; PCP Family Medicine
DX: M79.652 Pain in left thigh (principal); G89.4 Chronic pain syndrome; F17.210 Nicotine dependence, cigarettes, uncomplicated; J44.9 Chronic obstructive pulmonary disease, unspecified; Z86.19 Personal history of other infectious and parasitic diseases; Z89.519 Acquired absence of unspecified leg below knee
CPT/HCPCS: 73552; 80053; 85025; 86140; 96374; 96375; 96376; 99284; J1885; J3010

== ENCOUNTER → 2022-05-27 11:27 | Outpatient (BNVA) | payer MEDICAID, SELFPAY | PROVIDERS: PCP Family Medicine; Visit Provider Nurse Practitioner Family | DX: Z98.890 Other specified postprocedural states (principal); Z87.81 Personal history of (healed) traumatic fracture; S72.92XA Unspecified fracture of left femur, initial encounter for closed fracture; X58.XXXA Exposure to other specified factors, initial encounter | CPT/HCPCS: 73552; 99214 ==

== ENCOUNTER 2022-06-03 19:06 | Inpatient (IN) | payer MEDICAID, SELFPAY ==
[2022-06-03] VITALS (17 sets, daily range): BP systolic 146–173; BP diastolic 76–116; PULSE 76–101; RESP 13–28; TEMP 36.6; O2SAT 88–95; BMI 34.9
--- NOTE | 2022-06-03 18:57 | XRR_ITS ---
PROCEDURE INFORMATION: Exam: XR Chest Exam date and time: 06/03/2022 7:03 PM Age: 62 years old Clinical indication: Other: Overdose; Additional info: AMS TECHNIQUE: Imaging protocol: Radiologic exam of the chest. Views: 1 view. COMPARISON: CR (CHEST, ) 02/06/2022 1:40 AM FINDINGS: Lungs: There is no consolidation. Stable fine reticular pulmonary opacity bilaterally, similar to 02/06/2022. Pleural spaces: There is no pleural effusion or pneumothorax. Heart/Mediastinum: Cardiomediastinal contours are unremarkable. Bones/joints: Multiple chronic left rib fractures. Mild degenerative disease at both shoulders. XR/XR chest 1V portable [id number] IMPRESSION: 1. No acute findings. 2. Stable pulmonary fine reticular opacity. Possible interstitial lung disease.
--- NOTE | 2022-06-03 18:59 | ECG_ITS ---
[facility] Test Date: 2022-06-03 Pat Name: Dalila Samuels Department: Room: Gender: Female Forepart Laster: : 1960 Requested By: Abebe Ambrose Order Number: [id number] Danae MD: Megan Todd M.D. Measurements Intervals [place] Rate: 76 P: 62 MD: 168 QRS: 16 QRSD: 102 T: 38 QT: 403 QTc: 455 Interpretive Statements SINUS RHYTHM Compared to ECG 02/03/2022 02:14:31 Intraventricular conduction delay no longer present Electronically Signed On 06-04-2022 5:26:52 CDT by Megan Todd M.D. [email or web address]
--- NOTE | 2022-06-03 19:00 | ED_ITS ---
HPI - Overdose General: Chief Complaint: Overdose Stated Complaint: OVERDOSE Source: patient and EMS Mode of arrival: EMS History of Present Illness: This patient was transported to the emergency department via EMS. The history is somewhat convoluted but apparently family members have described as her behavior over the last couple of days is rather unusual and bizarre. EMS was then notified. No other family members are available and the history is obtained primarily from EMS. The patient will provide some history but it is rather disjointed. She states she hurts all over. She declines taking any additional or prescribed medication. She states she has not taken more medications than she is supposed to and has taken her usual medications. She denies alcohol or street drugs at this time. She denies thoughts of harming her self. She just complains of global pain. Review of Systems Const: Denies: fever(s) or chills Eyes: Denies: change in vision ENMT: Denies: throat pain Card: Denies: chest pain, palpitations, irregular heart rhythm, syncope or pre-syncope Resp: Denies: dyspnea, productive cough or non-productive cough GI: Denies: nausea, vomiting or diarrhea : Denies: difficulty voiding or dysuria Musc: Reports: extremity pain and joint pain Skin/Breast: Denies: rash or pruritus Neuro: Denies: headache(s), numbness in extremities or weakness in extremities Psych: Reports: anxiety and depression Endo: Denies: polyuria or polydipsia PFSH ED PFSH: Medical History Amphetamine addiction Anxiety Aspiration of foreign body in respiratory tract Borderline personality disorder Chronic idiopathic pain syndrome Chronic pain syndrome COPD (chronic obstructive pulmonary disease) DDD (degenerative disc disease), cervical DJD (degenerative joint disease), lumbar GERD (gastroesophageal reflux disease) Hepatitis C, chronic History of intravenous drug abuse Interstitial lung disease Nicotine dependence, cigarettes, with other nicotine-induced disorders Opioid dependence, in remission Other stimulant dependence, in remission Partial small bowel obstruction Psychiatric care Pulmonary hypertension PVD (peripheral vascular disease) with claudication Respiratory failure with hypoxia Schizoaffective disorder, bipolar type Surgical History H/O tubal ligation Hx of BKA S/P cholecystectomy S/P tonsillectomy Family History Other CAD (coronary artery disease) Diabetes Lung disease Stroke Social History Smoking and tobacco status: current every day smoker (on chantix to help quit) cigarettes Years cigarettes smoked: 40 [ Other cigarette details: Hx of 1 PPD x 40 Years] Quit status (tobacco): considering quitting Second hand smoke exposure: Yes Smoking risk assessment/counseling performed?: Yes Alcohol intake: former Counseling given: No Counseling given: No Lives independently: Yes Household members: none Marital status: Current occupational status: disabled History of recent travel: No Current gender identity: Female Female Reproductive History: Date of last menstrual period: 10/24/20 Spontaneous abortions: No Physical Exam Narrative: EXAM NARRATIVE: Tearful but makes good eye contact. She answers questions in 1 or 2 word sentences and seems to make great effort to answer questions. Const: COMMON NORMALS: alert GENERAL APPEARANCE: anxious NUTRITIONAL APPEARANCE: obese ORIENTATION/CONSCIOUSNESS: Yes awake HENMT: COMMON NORMALS: normocephalic, atraumatic, moist oral mucous membranes and oropharynx normal HEAD & SCALP: normocephalic and atraumatic Eye: COMMON NORMALS: Equal, round and reactive pupils present and EOMs intact bilaterally CONJUNCTIVA: Yes conjunctival abnormal (Injected bilaterally) PUPIL: Yes Equal, round and reactive pupils present Neck/C-Spine: COMMON NORMALS: full ROM, supple, no JVD and No carotid bruits Chest: COMMONS NORMALS: normal inspection of the chest Resp: COMMON NORMALS: normal respiratory effort, No use of accessory muscles and clear to auscultation bilaterally AUSCULTATION: clear to auscultation bilaterally Cardio: COMMON NORMALS: no JVD, regular rate, No murmurs present (Cardio) and Peripheral pulses 2+ throughout RATE: regular rate PERIPHERAL PULSES: Peripheral pulses 2+ throughout GI: COMMON NORMALS: Normal to inspection, nondistended, normoactive bowel sounds present, Soft to palpation and non-tender PALPATION: Yes Soft to palpation : COMMON NORMALS: Yes no CVA tenderness BLADDER/KIDNEY EXAM: Yes no CVA tenderness Back/Pelvis: COMMON NORMALS: no CVA tenderness, thoracic and lumbar spine normal to inspection, no thoracic nor lumbar tenderness and thoraco-lumbar ROM normal Extremity: COMMON NORMALS: capillary refill normal and no clubbing, cyanosis or edema NARRATIVE EXTREMITY EXAM: Bilateral upper extremities are normal to inspection without deformity, normal range of motion, no joint enlargement or effusion. Lower extremities remarkable for a below the knee amputation the right extremity but otherwise normal range of motion without any joint deformity, effusion etc. Neuro: COMMON NORMALS: moves all extremities, no focal motor deficits and no sensory deficits noted SENSORIUM/ORIENTATION: Yes alert Psych: ATTITUDE: Yes bizarre ACTIVITY/MOTOR BEHAVIOR: Yes appropriate eye contact SPEECH: Yes delayed Skin: COMMON NORMALS: no rashes or lesions noted, no wounds, turgor normal and no jaundice GENERAL SKIN EXAM: no rashes or lesions noted and turgor normal Course Reevaluation(s): Reevaluation #1: Patient appears to be more calm. She is drinking water. RN was able to speak with family members who state that she has had a history of similar occurrences when she does not take her Seroquel on a regular basis. It should be noted however that this family members are not the individuals that called EMS and they are uncertain of who called EMS. Time: 20:06 Reevaluation #2: Patient again is improved from her initial presentation. She will answer questions readily. I informed her of her current clinical findings and discussed treatment. She is not able to tell me where she lives or how she would get home. She does not have any evidence of evidence of sepsis or other issues but because of her paucity of wherewithal this evening relate regarding her ability to care for self I think we should give her loading dose of Levaquin (because of penicillin allergy of uncertain etiology) as well as have case management get involved in her care in the morning. I discussed with hospitalist who graciously will agreed to do so. Time: 22:22 Vital Signs: Vital signs: Vital Signs Temperature 97.9 F 06/03/22 18:48 Pulse Rate 84 06/03/22 21:45 Respiratory Rate 20 H 06/03/22 21:45 Blood Pressure 173/96 06/03/22 21:45 Pulse Oximetry 92 06/03/22 21:45 Oxygen Delivery Me thod 06/03/22 18:53 MDM - Overdose Medical Decision Making Patient known to this emergency department hospital presented by EMS from [facility] after allegedly EMS was called by unknown individuals because of concerns about change in her mentation. She presented initially with significant anxiety without any other focal findings. Her evaluation here finds that she is improved after hydration and observation and has a significant urinary tract infection. Her urine drug screen also indicates substances on board that are nonprescribed. Because of uncertain social situation and uncertainty of ability to care for herself this evening she is being admitted to observation for treatment of her urinary tract infection and manager social responsibility involvement. Lab Data I reviewed the patient's lab results. : 06/03/22 18:58 06/03/22 18:55 Radiology Impressions Chest X-Ray 06/03/22 18:57 IMPRESSION: 1. No acute findings. 2. Stable pulmonary fine reticular opacity. Possible interstitial lung disease. Laboratory Results WBC 9.5 10^3/uL (4.0-10.0) 06/03/22 18:58 RBC 5.08 10^6/uL (4.1-5.3) 06/03/22 18:58 Hgb 14.1 g/dL (11.5-15.3) 06/03/22 18:58 Hct 43.9 % (37.0-47.0) 06/03/22 18:58 MCV 86.4 fl (81-99) 06/03/22 18:58 MCH 27.8 pg (28.0-34.0) L 06/03/22 18:58 MCHC 32.1 g/dL (30.0-36.0) 06/03/22 18:58 RDW 14.3 % (12.1-15.1) 06/03/22 18:58 Plt Count 425 10^3/cmm (130-400) H 06/03/22 18:58 MPV 8.8 fL (7.4-10.4) 06/03/22 18:58 Neut % (Auto) 70.6 % 06/03/22 18:58 Lymph % (Auto) 19.9 % 06/03/22 18:58 Bradley % (Auto) 8.4 % 06/03/22 18:58 Eos % (Auto) 0.4 % 06/03/22 18:58 Baso % (Auto) 0.3 % 06/03/22 18:58 Neut # (Auto) 6.72 10^3/uL (1.8-7.7) 06/03/22 18:58 Lymph # (Auto) 1.9 10^3/uL (0.8-4.8) 06/03/22 18:58 Bradley # (Auto) 0.8 10^3/uL (0.2-0.9) 06/03/22 18:58 Eos # (Auto) 0.0 10^3/uL (0.0-0.8) 06/03/22 18:58 Baso # (Auto) 0.0 10^3/uL (0.0-0.1) 06/03/22 18:58 Nucleated RBC % (auto) 0 % 06/03/22 18:58 Nucleated RBCs # 0.0 /100WBC 06/03/22 18:58 Sodium 142 mmol/L (136-145) 06/03/22 18:55 Potassium 4.1 mmol/L (3.5-5.1) 06/03/22 18:55 Chloride 104 mmol/L (98-107) 06/03/22 18:55 Carbon Dioxide 20 mmol/L (22-29) L 06/03/22 18:55 Anion Gap 22.1 (5-19) H 06/03/22 18:55 BUN 15 mg/dL (8-23) 06/03/22 18:55 Creatinine 0.7 mg/dL (0.5-0.9) 06/03/22 18:55 GFR Calculation 85.4 mL/min (90-130) L 06/03/22 18:55 Glucose 105 mg/dL (65-115) 06/03/22 18:55 Calculated Osmolality 295 mOsm/kg (285-295) 06/03/22 18:55 Calcium 10.1 mg/dL (8.5-10.5) 06/03/22 18:55 Total Bilirubin 0.5 mg/dL (0.15-1.2) 06/03/22 18:55 AST 21 U/L (0-32) 06/03/22 18:55 ALT 13 U/L (0-33) 06/03/22 18:55 Alkaline Phosphatase 200 U/L (35-105) H 06/03/22 18:55 Ammonia 31 umol/L (11-51) 06/03/22 19:28 Total Protein 8.2 g/dL (6.6-8.7) 06/03/22 18:55 Albumin 4.9 g/dL (3.5-5.2) 06/03/22 18:55 Globulin 3.3 g/dL (1.3-4.6) 06/03/22 18:55 Urine Color Yellow (Yellow) 06/03/22 20:35 Urine Appearance Cloudy (CLEAR) 06/03/22 20:35 Urine pH 6 (5-7) 06/03/22 20:35 Ur Specific Fraser 1.020 (1.005-1.030) 06/03/22 20:35 Urine Protein 1+ (Negative) H 06/03/22 20:35 Urine Glucose (UA) Norm (Normal) 06/03/22 20: Urine Ketones 2+ (Negative) H 06/03/22 20: Urine Blood 2+ (Negative) H 06/03/22 20:35 Urine Nitrate Positive (Negative) H 06/03/22 20:35 Urine Bilirubin 1+ (Negative) H 06/03/22 20:35 Urine Urobilinogen 4 mg/dL (Negative) H 06/03/22 20:35 Ur Leukocyte Esterase 2+ (Negative) H 06/03/22 20:35 Urine RBC 40-50 /hpf (0-2) H 06/03/22 20:35 Urine WBC Too numerous to cnt /hpf (0-5) H 06/03/22 20:35 Ur Squamous Epith Cells 5-10 /hpf (0-5) H 06/03/22 20:35 Amorphous Sediment Not Reportable 06/03/22 20:35 Urine Bacteria 4+ /hpf (NONE) H 06/03/22 20:35 Salicylates < 0.3 mg/dL (3-10) L 06/03/22 18:55 Urine Opiates Screen Negative ng/mL (Negative) 06/03/22 20:35 Acetaminophen < 5.0 ug/mL (10-30) L 06/03/22 18:55 Ur Barbiturates Screen Negative ng/mL (Negative) 06/03/22 20:35 Ur Phencyclidine Scrn Negative ng/mL (Negative) 06/03/22 20:35 Ur Amphetamines Screen Positive ng/mL (Negative) H 06/03/22 20:35 U Benzodiazepines Scrn Positive ng/mL (Negative) H 06/03/22 20:35 Urine Cocaine Screen Negative ng/mL (Negative) 06/03/22 20:35 U Marijuana (THC) Screen Negative ng/mL (Negative) 06/03/22 20:35 Ethyl Alcohol < 10 mg/dL (0-10) 06/03/22 18:55 EKG Data EKG 1: I personally reviewed and interpreted this EKG as follows: Interpretation: EKG is a resting rate of 76 bpm. She has some baseline interference however MS intervals normal, QRS duration is normal. QTc intervals normal limits. Normal axis. No acute ST-T wave changes noted. Discharge Plan Discharge Patient Disposition: Placed in Observation Clinical Impression: Schizoaffective disorder, bipolar type, Urinary tract infection, COPD (chronic obstructive pulmonary disease) Condition: Stable Prescriptions: No Action epinephrine [EpiPen 2-Reji] 0.3 mg/0.3 mL auto-injector 0.3 mg IM Q15M PRN (Reason: anaphylaxis) Qty: 2 0RF Rx Instructions: for 2 doses potassium chloride 20 mEq tablet,ER particles/crystals 20 meq PO DAILY loperamide [Anti-Diarrheal (loperamide)] 2 mg capsule 2 mg PO DIRECTED PRN Rx Instructions: Give 2 capsule after first loose stool, 1 capsule after each subsequent loose stool, but no more than 4 tabs in 24 hours. fluoxetine 40 mg capsule 80 mg PO DAILY Qty: 60 1RF quetiapine 400 mg tablet 600 - 800 mg PO BEDTIME Qty: 60 1RF lamotrigine 100 mg tablet 150 mg PO QAM Qty: 45 1RF bupropion HCl 150 mg tablet sustained-release 12 hr 150 mg PO BID Qty: 60 1RF varenicline [Chantix Continuing Month Box] 1 mg tablet 1 mg PO BID Qty: 56 1RF Anoro Ellipta 62.5-25 mcg/actuation blister with device 1 inh inhalation DAILY 30 Days Qty: 60 3RF promethazine 12.5 mg tablet 12.5 mg PO DAILY PRN (Reason: nausea and vomiting) 30 Days Qty: 30 5RF One Daily 27 mg iron- 800 mcg tablet 1 tab PO DAILY 90 Days Qty: 90 1RF albuterol sulfate 90 mcg/actuation HFA aerosol inhaler 2 puff INHALATION Q6H PRN (Reason: shortness of breath or wheezing) 30 Days Qty: 18 5RF budesonide 0.5 mg/2 mL suspension for nebulization 0.5 mg inhalation BID Qty: 60 5RF albuterol sulfate 2.5 mg /3 mL (0.083 %) solution for nebulization 2.5 mg inhalation Q4H PRN (Reason: shortness of breath or wheezing) Qty: 180 5RF dextromethorphan polistirex 30 mg/5 mL suspension,extended rel 12 hr 10 ml PO Q12H PRN (Reason: cough) Qty: 89 0RF famotidine 20 mg tablet 20 mg PO BID 30 Days Qty: 60 5RF pregabalin [Lyrica] 200 mg capsule 200 mg PO TID (DME) Wheelchair See Rx Instructions .Route .MEDSUPPLY Qty: 1 0RF Rx Instructions: As directed ibuprofen 800 mg tablet 800 mg PO TID PRN (Reason: pain) 30 Days Qty: 90 2RF Rx Instructions: WITH FOOD pregabalin 100 mg Capsule 100 mg PO BID Qty: 60 0RF hydrocodone-acetaminophen 5-325 mg tablet 1 tab PO BID PRN (Reason: pain (scale score 7-10)) Qty: 6 0RF Referrals: Nicole Louis MD [Primary Care Provider] - Coding Level of Care Code ED Supervisor Coffee for Chg Fwd Exam Comprehensive
[2022-06-03] MEDS: sodium chloride 0.9% 1,000 ML 999 ML IV (19:08)
[2022-06-03 19:23] LABS: Basophils % 0.3 %; Eosinophils % 0.4 %; Hematocrit 43.9 % (37.0-47.0); Hemoglobin 14.1 g/dL (11.5-15.3); Lymphocytes # 1.9 10^3/uL (0.8-4.8); Lymphocytes % 19.9 %; Mean Corpuscular HGB Conc 32.1 g/dL (30.0-36.0); Mean Corpuscular Hemoglobin 27.8 pg (28.0-34.0); Mean Corpuscular Volume 86.4 fl (81-99); Mean Platelet Volume 8.8 fL (7.4-10.4); Monocytes # 0.8 10^3/uL (0.2-0.9); Monocytes % 8.4 %; Neutrophils # 6.72 10^3/uL (1.8-7.7); Neutrophils % 70.6 %; Nucleated Red Blood Cells % 0 %; Platelet Count 425 10^3/cmm (130-400); Red Blood Count 5.08 10^6/uL (4.1-5.3); Red Cell Distribution Width 14.3 % (12.1-15.1); White Blood Count 9.5 10^3/uL (4.0-10.0)
[2022-06-03 19:59] LABS: Alanine Aminotransferase 13 U/L (0-33); Albumin Level 4.9 g/dL (3.5-5.2); Alkaline Phosphatase 200 U/L (35-105); Anion Gap 22.1 (5-19); Aspartate Amino Transferase 21 U/L (0-32); Blood Urea Nitrogen 15 mg/dL (8-23); Calcium 10.1 mg/dL (8.5-10.5); Carbon Dioxide 20 mmol/L (22-29); Chloride 104 mmol/L (98-107); Globulin 3.3 g/dL (1.3-4.6); Glomerular Filtration Rate 85.4 mL/min (90-130); Glucose 105 mg/dL (65-115); Osmolality Calculated 295 mOsm/kg (285-295); Potassium 4.1 mmol/L (3.5-5.1); Sodium 142 mmol/L (136-145); Total Bilirubin 0.5 mg/dL (0.15-1.2); Total Protein 8.2 g/dL (6.6-8.7)
[2022-06-03 20:11] LABS: Ammonia 31 umol/L (11-51)
[2022-06-03 20:18] LABS: Acetaminophen < 5.0 ug/mL (10-30); Alcohol Level < 10 mg/dL (0-10); Salicylate < 0.3 mg/dL (3-10)
[2022-06-03 20:50] LABS: Amphetamines Screen Urine Positive (Negative); Barbiturates Screen Urine Negative (Negative); Benzodiazepines Screen Urine Positive (Negative); Cocaine Screen Urine Negative (Negative); Opiate Screen Urine Negative (Negative); PCP Screen Urine Negative (Negative); THC Screen Urine Negative (Negative)
[2022-06-03 21:16] LABS: Glucose Urine UA Norm (Normal); Protein Urine 1+ (Negative); Urine Appearance Cloudy (CLEAR); Urine Color Yellow (Yellow); pH Urine 6 (5-7)
[2022-06-03 21:17] LABS: Bilirubin Urine 1+ (Negative); Blood Urine 2+ (Negative); Ketones Urine 2+ (Negative); Nitrate Urine Positive (Negative)
[2022-06-03 21:18] LABS: Add Urine Culture? Yes; Add Urine Microscopic? YES; Bacteria Urine 4+ /hpf; Leukocyte Esterase Urine 2+ (Negative); RBC Urine 40-50 /hpf (0-2); Urobilinogen Urine 4 mg/dL (Negative); WBC Urine TOO NUMEROUS TO CNT /hpf (0-5)
[2022-06-03] MEDS: levofloxacin-dextrose 5 % 750 MG/150 ML PREMIX 100 MG IV (22:19)
--- NOTE | 2022-06-03 23:09 | CT_ITS ---
WS: [id number] CT HEAD TECHNIQUE: Noncontrast CT of the head obtained from the skullbase to the vertex. CLINICAL INFORMATION: altered mental status COMPARISON: February 10, 2022 DLP: 1188.[address] scans at [facility] use at least one of these dose optimization techniques: automated e xposure control; mA and/or kV adjustment per patient size (includes targeted exams where dose is matc hed to clinical indication); or iterative reconstruction. 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 No evidence of intracranial hemorrhage or mass effect. Normal kelley-white differentiation. Parana felicita sinuses and mastoid air cells well aerated. Vascular calcification. Normal visualized soft tissue s. No other suspicious findings. CT/CT head wo con* [id number] IMPRESSION: 1. No evidence of intracranial hemorrhage or mass effect. 2. 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 Mild small vessel changes. Moderate parenchymal volume loss. 4. No acute intracranial findings.
--- NOTE | 2022-06-03 23:20 | CT_ITS ---
WS: [id number] CT ABDOMEN PELVIS TECHNIQUE: Noncontrast CT of the abdomen and pelvis with coronal and sagittal reformatted images. CLINICAL INFORMATION: abdominal pain, UTI, evaluate for obstructive pyelonephritis COMPARISON: CT May 19/bibasilar atelectasis., 2020 DLP: 1208.[address] scans at [facility] use at least one of these dose optimization techniques: automated e xposure control; mA and/or kV adjustment per patient size (includes targeted exams where dose is matc hed to clinical indication); or iterative reconstruction. FINDINGS: Noncontrast liver is normal. Cholecystectomy clips. Dilatation common bile duct postcholecystectomy l ikely physiologic. Normal GE junction. Noncontrast spleen is normal. Fatty atrophy of the pancreas. N ormal caliber abdominal aorta. Aortic calcification. Adrenal glands are normal. No hydronephrosis in either kidney. Both ureters are decompressed. No evidence of obstructing renal or ureteral calculi. N o hydronephrosis. Small LEFT renal cysts. LEFT SHERRIE degrades images in the pelvis. Alcantara catheter. No evidence of high-grade small or large gregorio l obstruction. RIGHT ventral abdominal wall hernia repair. Cholecystectomy. Advanced spondylitic changes lumbar spine. Slight anterolisthesis L4 on L5. CT/CT abdomen pelvis con [id number] IMPRESSION: 1. No evidence of obstructing renal or ureteral calculi. No hydronephrosis in either kidney. 2. Alcantara catheter. 3. Prior cholecystectomy and RIGHT ventral abdominal wall hernia repair. 4. No acute findings in the abdomen or pelvis.
--- NOTE | 2022-06-03 23:21 | P.HP_ITS ---
Providers/Chief Complaint Admitting Physician: Giuliana Ocasio MD Primary Care Provider: Nicole Louis MD Chief Complaint: OVERDOSE History of Present Illness Dalila Samuels is a 62 year old female with past medical history of schizoaffective disorder, COPD, multiple psych medication, pulmonary hypertension, peripheral vascular disease, history of BKA who was brought into the emergency room by EMS for altered mental status. Patient is unable to provide her own history at this time. She yells I do not know to all questions that are being asked. She tells me that that she called EMS today because she was hurting all over, however per ER account either family or neighbors called the EMS. Listed numbers for family in the chart are currently not reachable at this time.Per history obtained from EMS and ER physician, patient has had bizarre behavior over the last 3 to 4 days. She appeared to be confused. She Is Repeating That She Hurts All over. Unable to Ascertain If She Has Been Taking All of Her Medications As Prescribed or If She May Have Overdosed on Some of Her Medications. It appears when patient was here in January 2022 for an orthopedic surgery, she had her course complicated by altered mental status which was determined to be withdrawal from holding her psych medications. Some of her medications had also been dose adjusted, such as bupropion was b rought down 200 mg twice daily, fluoxetine 40 mg daily and Seroquel 500 mg daily pregabalin 100 mg twice daily. She appears to have done with this combination regimen. She had been discharged to a SNF in January, but appears in April she had returned home per review of her outpatient notes. Her primary care physician's note from March states that she lives alone at home and had been looking to transition to [facility] as she was unable to care for herself any longer. It appears referral may have been provided as outpatient. Review of Systems General: Reports: ROS unobtainable due to medical condition Medications/Allergies Home Medications Medication Instructions Recorded Confirmed Last Taken Type epinephrine 0.3 mg/0.3 mL 0.3 mg (0.3 mL) IM Q15M PRN 01/13/21 04/21/22 Unknown Rx injection, auto-injector (EpiPen anaphylaxis #2 ea 2-Reji) albuterol sulfate 2.5 mg/3 mL 2.5 mg (3 mL) inhalation Q4H PRN 01/06/22 04/21/22 Unknown Rx (0.083 %) solution for nebulization shortness of breath or wheezing #180 mL albuterol sulfate 90 mcg/actuation 2 puff inhalation Q6H PRN 01/06/22 04/21/22 Unknown Rx aerosol inhaler shortness of breath or wheezing 30 days #18 grams budesonide 0.5 mg/2 mL suspension 0.5 mg (2 mL) inhalation BID #60 mL 01/06/22 04/21/22 Unknown Rx for nebulization dextromethorphan polistirex 30 10 ml PO Q12H PRN cough #89 mL 01/06/22 04/21/22 Unknown Rx mg/5 mL oral susp ext.release 12hr famotidine 20 mg tablet 20 mg PO BID 30 days #60 tabs 01/06/22 04/21/22 Unknown Rx vits no.129-ferrous fum 1 tab PO DAILY 90 days #90 tabs 01/06/22 04/21/22 Unknown Rx 27 mg iron-folic acid 800 mcg tablet ( One Daily) promethazine 12.5 mg tablet 12.5 mg PO DAILY PRN nausea and 01/06/22 04/21/22 Unknown Rx vomiting 30 days #30 tabs umeclidinium 62.5 mcg-vilanterol 1 inh inhalation DAILY 30 days #60 01/06/22 04/21/22 Unknown Rx 25 mcg/actuation powdr for ea inhalation (Anoro Ellipta) ibuprofen 800 mg tablet 800 mg PO TID PRN pain 30 days #90 01/14/22 04/21/22 Unknown Rx tabs pregabalin 100 mg capsule 100 mg PO BID #60 caps 02/12/22 04/21/22 Unknown Rx loperamide 2 mg capsule 2 mg PO DIRECTED PRN 04/03/22 04/21/22 Unknown History (Anti-Diarrheal (loperamide)) potassium chloride 20 mEq 20 meq PO DAILY 04/03/22 04/21/22 Unknown History tablet,extended release(part/cryst) bupropion HCl 150 mg tablet,12 hr 150 mg PO BID #60 tabs 04/16/22 04/21/22 Unknown Rx sustained-release fluoxetine 40 mg capsule 80 mg PO DAILY #60 caps 04/16/22 04/21/22 Unknown Rx lamotrigine 100 mg tablet 150 mg PO QAM #45 tabs 04/16/22 04/21/22 Unknown Rx quetiapine 400 mg tablet 600 - 800 mg PO BEDTIME #60 tabs 04/16/22 04/21/22 Unknown Rx varenicline 1 mg tablet (Chantix 1 mg PO BID #56 tabs 04/16/22 04/21/22 Unknown Rx Continuing Month Box) hydrocodone 5 mg-acetaminophen 325 1 tab PO BID PRN pain (scale score 05/17/22 Unknown Rx mg tablet 7-10) #6 tabs Wheelchair #1 ea 05/27/22 05/27/22 Unknown Rx pregabalin 200 mg capsule (Lyrica) 200 mg PO TID 05/27/22 05/27/22 Unknown History Allergies Allergy/AdvReac Type Severity Reaction Status Date / Time Penicillins Allergy ALGY-Rash Verified 06/03/22 18:52 PFSH Acute PFSH: Medical History Amphetamine addiction Anxiety Aspiration of foreign body in respiratory tract Borderline personality disorder Chronic idiopathic pain syndrome Chronic pain syndrome COPD (chronic obstructive pulmonary disease) DDD (degenerative disc disease), cervical DJD (degenerative joint disease), lumbar GERD (gastroesophageal reflux disease) Hepatitis C, chronic History of intravenous drug abuse Interstitial lung disease Nicotine dependence, cigarettes, with other nicotine-induced disorders Opioid dependence, in remission Other stimulant dependence, in remission Partial small bowel obstruction Psychiatric care Pulmonary hypertension PVD (peripheral vascular disease) with claudication Respiratory failure with hypoxia Schizoaffective disorder, bipolar type Surgical History H/O tubal ligation Hx of BKA S/P cholecystectomy S/P tonsillectomy Family History Other CAD (coronary artery disease) Diabetes Lung disease Stroke Social History Smoking and tobacco status: current every day smoker (on chantix to help quit) cigarettes Years cigarettes smoked: 40 [ Other cigarette details: Hx of 1 PPD x 40 Years] Quit status (tobacco): considering quitting Second hand smoke exposure: Yes Smoking risk assessment/counseling performed?: Yes Alcohol intake: former Counseling given: No Counseling given: No Lives independently: Yes Household members: none Marital status: Current occupational status: disabled History of recent travel: No Current gender identity: Female Female Reproductive History: Date of last menstrual period: 10/24/20 Spontaneous abortions: No Vitals/I&O/Wt Last Vital Signs Temp 97.9 F 06/03/22 18:48 Pulse 81 06/03/22 22:45 Resp 19 H 06/03/22 22:45 BP 166/96 06/03/22 22:45 Pulse Ox 95 06/03/22 22:45 O2 Del Method 06/03/22 18:53 06/03/22 06/03/22 06/04/22 14:59 22:59 06:59 Intake Total 1000 / 1000 Balance 1000 / 1000 Weight last 48 hrs Weight 95.254 kg Physical Exam Narrative: General: Lying in bed, fidgety while laying in bed, AO x1 HEENT: PERRLA, pupils bilaterally equal and reactive, pallors not present Chest: Normal vesicular breath sounds, no added sounds, equal good air entry bilaterally CVS: S1-S2 regular, no murmurs, no tachycardia, no gallops, no rubs Abdomen: Appearing to be distended, bowel sounds heard Neuro: Moves all extremities while laying in bed, though not necessarily to command. Follows some commands to open eyes, left legs and arms however not consistently. Extremities: Status post right BKA Data : 06/04/22 00:25 06/04/22 00:25 A&P Assessment and plan (1) Altered mental status: Patient presented with AMS with no current history obtainable. Differentials at this time include metabolic encephalopathy from UTI versus possible medication overdose or polypharmacy. Will check CT head to evaluate for any acute stroke. Additionally will obtain CT of her abdomen and pelvis given that she complains of pain in abdomen does seem to be slightly distended. Bowel sounds are present. She has not had any witnessed vomiting or diarrhea while here in the emergency room. Will check ABG to rule out hypercapnia given patient has a history of COPD. Obtain blood cultures. Start empiric antibiotic coverage with ceftriaxone 1 g IV every 24. Will continue bupropion 100 mg twice daily, lamotrigine 150 mg p.o. every morning, Seroquel 500 mg daily, holding doses of pregabalin. QTc interval reviewed, currently within range at 455 ms. Monitor for improvement with initiation of IV antibiotics, adjustment in home medications. Further orders with results of pending imaging. (2) Urinary tract infection: Ceftriaxone 1 g IV every 24. (3) COPD (chronic obstructive pulmonary disease): DuoNebs and budesonide inhalation scheduled. Check ABG for hypercapnia. 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
[2022-06-04] VITALS (11 sets, daily range): BP systolic 144–174; BP diastolic 83–104; PULSE 74–106; RESP 15–23; TEMP 36.7–37.2; O2SAT 91–97
[2022-06-04] LABS: Thyroid Stimulating Hormone 0.77 uIU/mL (0.27-4.20)
[2022-06-04] MEDS: enoxaparin 40 mg/0.4 mL Syringe SUBCUT ×2 (00:08→23:20)
[2022-06-04] MEDS: cefTRIAXone 1,000 MG in sodium chloride 0.9% (plus) 50 ML 100 MG IV (00:08)
--- NOTE | 2022-06-04 00:19 | PC.NURSE ---
Report given to Britni Batista
[2022-06-04 00:36] LABS: Basophils % 0.2 %; Eosinophils # 0.1 10^3/uL (0.0-0.8); Eosinophils % 0.9 %; Hematocrit 39.7 % (37.0-47.0); Lymphocytes # 2.1 10^3/uL (0.8-4.8); Lymphocytes % 26.3 %; Mean Corpuscular HGB Conc 30.2 g/dL (30.0-36.0); Mean Corpuscular Hemoglobin 27.6 pg (28.0-34.0); Mean Corpuscular Volume 91.5 fl (81-99); Mean Platelet Volume 8.6 fL (7.4-10.4); Monocytes # 0.8 10^3/uL (0.2-0.9); Monocytes % 9.2 %; Neutrophils # 5.13 10^3/uL (1.8-7.7); Neutrophils % 62.9 %; Nucleated Red Blood Cells % 0 %; Platelet Count 348 10^3/cmm (130-400); Red Blood Count 4.34 10^6/uL (4.1-5.3); Red Cell Distribution Width 14.3 % (12.1-15.1); White Blood Count 8.2 10^3/uL (4.0-10.0)
[2022-06-04 01:11] LABS: Alanine Aminotransferase 12 U/L (0-33); Albumin Level 3.9 g/dL (3.5-5.2); Alkaline Phosphatase 165 U/L (35-105); Anion Gap 15.5 (5-19); Aspartate Amino Transferase 16 U/L (0-32); Blood Urea Nitrogen 14 mg/dL (8-23); Calcium 9.2 mg/dL (8.5-10.5); Carbon Dioxide 20 mmol/L (22-29); Chloride 105 mmol/L (98-107); Globulin 2.9 g/dL (1.3-4.6); Glucose 103 mg/dL (65-115); Magnesium 1.7 mg/dL (1.7-2.3); Osmolality Calculated 285 mOsm/kg (285-295); Potassium 3.5 mmol/L (3.5-5.1); Sodium 137 mmol/L (136-145); Total Bilirubin 0.4 mg/dL (0.15-1.2); Total Protein 6.8 g/dL (6.6-8.7)
[2022-06-04] MEDS: haloperidol inj 5 mg/mL INJ 1 mL 1 MG IM ×5 (02:52→23:38)
--- NOTE | 2022-06-04 06:16 | PC.NURSE ---
Shift Summary Patient continuously yelled and screamed out, Help me, help me! When asking the patient questions, she would yell, I don't know, I can't! Help me! Someone please help me! Patient became more and more agitated throughout the night, started ripping off her oxygen, gown, and becoming slightly aggressive with nursing staff. Patient received antipsychotic medication which helped for a short period of time and patient was able to sleep in small intervals. Patient would then intermittently yell the same repeated phrases. Patient was not able to answer any orientation questions throughout the night and was completely unable to be redirected.
--- NOTE | 2022-06-04 08:09 | PC.PHAR ---
PT UNABLE TO VERIFY DUE TO AMS- PTS CONTACT DOES NOT KNOW ALL OF PTS MEDS- MEDICATIONS VERIFIED USING EXTERNAL MED LIST LAST FILLED
[2022-06-04] MEDS: fluoxetine 20 mg Capsule 40 MG PO (08:12)
[2022-06-04] MEDS: pantoprazole DR 40 mg Tablet PO (08:12)
[2022-06-04] MEDS: budesonide 0.5 mg/2 mL Neb INHALATION (08:38)
[2022-06-04] MEDS: ipratropium-albuterol 3 mL Neb INHALATION (08:38)
--- NOTE | 2022-06-04 08:44 | ECG_ITS ---
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 Measurements Intervals [place] Rate: 85 P: NV: QRS: 9 QRSD: 100 T: 20 QT: 383 QTc: 458 Interpretive Statements Sinus rhythm with baseline artifact Nonspecific ST and T wave changes Compared to ECG 06/03/2022 19:29:26 No change Electronically Signed On 06-04-2022 15:04:16 CDT by Bruce Cheng M.D. [id number]
[2022-06-04] MEDS: meropenem 1,000 MG in sodium chloride 0.9% (plus) 50 ML 100 MG IV ×3 (09:39→23:42)
[2022-06-04] MEDS: OLANZapine 10 mg VIAL IM (09:45)
--- NOTE | 2022-06-04 10:11 | P.PN_ITS ---
Subjective Subjective: This morning patient was examined, she is alert to person, not to place, not to time, she can follow commands, she keeps yelling, that can be heard in the hallways, when I introduced myself, she tells me to help her when I asked her if she had used cocaine she admits this, however declines methamp hetamine use, she is not exactly sure where she lives, she denies hurting anywhere, she is able to squeeze my fingers, her nursing staff at bedside tell me that she did not get any sleep last night, Vitals/I&O/Wt Last Vital Signs Temp 98.9 F 06/04/22 01:24 Pulse 89 06/04/22 08:53 Resp 18 06/04/22 08:53 BP 169/95 06/04/22 07:36 Pulse Ox 96 06/04/22 08:53 O2 Del Method 06/04/22 08:53 06/03/22 06/04/22 06/04/22 22:59 06:59 14:59 Intake Total 1000 / 1000 200 / 1200 Balance 1000 / 1000 200 / 1200 Weight last 48 hrs Weight 100.783 kg Weight 95.254 kg Physical Exam Const: COMMON NORMALS: no acute distress EXAM LIMITATIONS: altered mental status ORIENTATION/CONSCIOUSNESS: Yes awake and Yes oriented to person; not oriented to place and not oriented to time Resp: COMMON NORMALS: normal respiratory effort, No retractions, No use of accessory muscles and clear to auscultation bilaterally AUSCULTATION: clear to auscultation bilaterally Cardio: COMMON NORMALS: regular rate, regular rhythm, S1 normal heart sound present and S2 normal heart sound present RATE: regular rate RHYTHM: regular rhythm HEART SOUNDS: S1 normal heart sound present and S2 normal heart sound present GI: COMMON NORMALS: Normal to inspection, nondistended, normoactive bowel sounds present, non-tender and no bruits Extremity: OTHER: Right lower extremity above-knee amputation Neuro: SENSORIUM/ORIENTATION: Yes oriented to person, No oriented to place and No oriented to time Psych: COMMON NORMALS: mental status grossly normal Data : 06/04/22 00:25 06/04/22 00:25 Micro: Microbiology 06/03/22 20:35 Urine Culture - Preliminary Urine,Clean Catch Gram Negative Rods 06/04/22 00:27 Blood Culture - Preliminary Blood SPECIMEN COLLECTED 06/04/22 00:25 Blood Culture - Preliminary Blood SPECIMEN COLLECTED A&P Assessment and plan (1) Altered mental status: Patient presented with AMS with no current history obtainable. Differentials at this time include metabolic encephalopathy from UTI and or possible medication overdose or polypharmacy. Patient's encephalopathic this morning, she did not take her Seroquel last night, she should get Lamictal this morning Advised nursing staff to give her Lamictal monitor mentation for the next 15 to 30 minutes if she continues to be confused we will give her Zyprexa [address] Alcantara catheter and do further work-up including CT of the head, CT abdomen pelvis to evaluate for possible kidney stone, obstructive uropathy Will check CT head to evaluate for any acute stroke. Additionally will obtain CT of her abdomen and pelvis given that she complains of pain in abdomen does seem to be slightly distended. Bowel sounds are present. She has not had any witnessed vomiting or diarrhea while here in the emergency room. Follow urine cultures, blood cultures Broaden antibiotic therapy to meropenem for ESBL During her last hospitalization, she required ICU admission due to changes in her mentation, difficult titration of her psychotropic medications, monitor mentation closely Will continue bupropion 100 mg twice daily, lamotrigine 150 mg p.o. every morning, Seroquel 500 mg daily, holding doses of pregabalin. QTc interval reviewed, currently within range at 455 ms. Monitor QTc interval as she is receiving Haldol, Zyprexa Monitor for improvement with initiation of IV antibiotics, adjustment in home medications. Further orders with results of pending imaging. (2) Urinary tract infection: Meropenem (3) COPD (chronic obstructive pulmonary disease): DuoNebs and budesonide inhalation scheduled. Plan Patient takes multiple psychotropic medications, during her last hospitalization she had severe withdrawals from not taking her medication requiring ICU admission, also had issues with nicotine withdrawal, hyponatremia -Resume her home Lamictal, Seroquel, Wellbutrin, Prozac, Lyrica, -Need to monitor her QT interval -Telemetry monitoring Attestations Medical Necessity Statement*: Patient requires hospitalization for acute encephalopathy Coding Level of Care Code Acute Supervisor Pleating for [facility] Diagnoses Altered mental status R41.82 Urinary tract infection N39.0 COPD (chronic obstructive pulmonary disease) J44.9
--- NOTE | 2022-06-04 10:34 | PC.CHAP ---
Pastoral Care Encounter/Spiritual Assessment Type of Contact [] Declined epilepsy physician visit [] Patient/Family/Request visit [] Outpatient visit [] Follow-up visit [] Physician referral [] Code/Alert [x] Routine visit [] Staff referral [] Actively dying [] Patient sleeping [] Family support [] [] Out of room [x] Palliative care [] [x] Receiving care in room [] Pre-surgical visit [] Trauma [] Long length of stay [] ICU visit [x] Other: with staff care Relational/Emotional Strength [] Patient feels connected with others/family/visitors/staff [] Distress [] Loneliness/isolation [] Abandonment Spirituality of Patient [] Person of Love [] Attends [employer] of their Love [] Believes in Prayer [] Reads Bible or Jewish materials [] There are Spiritual issues to be addressed Gem Technician Interventions [] Prayer [] Active listening [] Non-anxious presence [] Spiritual/emotional support [] Crisis/trauma care [] Spiritual counseling [] Bereavement support [] Provided bereavement packet [] Provided Bible/devotional materials [] Provided toy/stuffed animal, coloring book to patient or family member [] Provided Communion [] Anointing/[place] [] Salvation [] Completed spiritual assessment [] Other: Impact on Illness or Injury [] Angry [] Fearful [] Anxious [] Often cries [] Exhaustion [] Unable to work [] Unable to attend taoist [] Unable to walk/stand [] Unable to read [] Unable to drive [] Unable to eat/drink [] Unable to sleep [] Unable to be with family [] Patient intubated [] Other: Summary with staff care Time spent with patient 5 mins
[2022-06-04] MEDS: dextrose 5%-sod chloride 0.9% 1,000 ML 75 ML IV ×2 (11:32→23:41)
[2022-06-04] MEDS: lidocaine 1% 5 ML in potassium chloride premix 100 ML 50 ML IV (11:33)
[2022-06-04] MEDS: magnesium sulfate premix 2 GM/50 ML PIGGYBACK IV (11:33)
[2022-06-04 12:52] LABS: Erythrocyte Sedimentation Rate 24 mm/hr (0-15)
[2022-06-04 13:09] LABS: Troponin(5th) Baseline 8 ng/L (0-10)
[2022-06-04 13:11] LABS: C Reactive Protein 8.9 mg/L (0.0-4.9)
[2022-06-04 13:18] LABS: Procalcitonin 0.02 ng/mL (0-0.5)
[2022-06-04] MEDS: buPROPion SR (12 HR) 150 mg Tablet 100 MG PO (17:44)
[2022-06-04 18:00] LABS: Troponin 5 2HR 9.24 ng/L (0-10)
[2022-06-04 18:33] LABS: Troponin 5 2HR Delta 1.24 ABS# (0-10)
[2022-06-04 19:30] LABS: Troponin 5 6HR 7.78 ng/L (0-10)
--- NOTE | 2022-06-04 19:30 | PC.NURSE ---
Addendum entered by Zulema Dao RN 06/04/22 19:33: Unable to assess NIHSS stroke scale. Patient will not follow commands. Original Note: Patient yells out help me please hurry , ect. When asking patient what she needs, she answers with please and hey . Attempt to give patient PO medications and patient spits them out and patient also spits out water. When asking patient where she is at, what year it is, ect. patient states please help , ect. One on one sitter at bedside.
[2022-06-04 19:53] LABS: Troponin 5 6HR Delta -0.22 ng/L (0-12)
--- NOTE | 2022-06-04 20:07 | PC.NURSE ---
Attempt again to give patient PO medications and water. Patient holds her mouth closed and states no. Patient will not follow commands and is not redirectable at this time. Attempt to reorient and educated patient. Patient does not seem to comprehend. Dr. Ocasio notified of patient not taking PO Seroquel or Lyrica. Also notified that patient did not get Lamictal this morning and will most likely not be able to take it tomorrow morning.
[2022-06-04] MEDS: ondansetron 2 mg/ML SDV 2 mL 4 MG IVP (20:51)
--- NOTE | 2022-06-04 23:32 | PC.NURSE ---
Addendum entered by Zulema Dao RN 06/04/22 23:47: Patient c/o pain. Patient will not take PO Tylenol or Lyrica. Original Note: Attempt PO medications again. Patient spit them out again.
[2022-06-05] VITALS (11 sets, daily range): BP systolic 133–166; BP diastolic 80–93; PULSE 70–109; RESP 14–22; TEMP 36.4–36.8; O2SAT 90–96
--- NOTE | 2022-06-05 03:25 | PC.NURSE ---
Patient's oxygen saturation 87 percent on room air. Patient placed on 2 liters NC. Oxygen saturation 93 percent with this. Will monitor.
--- NOTE | 2022-06-05 06:10 | PC.NURSE ---
One-on-one sitter discontinued at 0100. Patient yells out, but has not pulled at garcia, pulled at IV, or attempted to get out of bed all shift. Patient slept approximately 5 hours throughout shift.
[2022-06-05 06:35] LABS: Basophils % 0.1 %; Eosinophils # 0.1 10^3/uL (0.0-0.8); Eosinophils % 0.9 %; Hematocrit 40.2 % (37.0-47.0); Hemoglobin 12.6 g/dL (11.5-15.3); Lymphocytes # 2.3 10^3/uL (0.8-4.8); Lymphocytes % 28.7 %; Mean Corpuscular HGB Conc 31.3 g/dL (30.0-36.0); Mean Corpuscular Hemoglobin 27.6 pg (28.0-34.0); Mean Corpuscular Volume 88.2 fl (81-99); Mean Platelet Volume 8.7 fL (7.4-10.4); Monocytes # 0.7 10^3/uL (0.2-0.9); Monocytes % 8.7 %; Neutrophils # 4.79 10^3/uL (1.8-7.7); Neutrophils % 61.1 %; Nucleated Red Blood Cells % 0 %; Platelet Count 309 10^3/cmm (130-400); Red Blood Count 4.56 10^6/uL (4.1-5.3); Red Cell Distribution Width 14.3 % (12.1-15.1); White Blood Count 7.8 10^3/uL (4.0-10.0)
[2022-06-05] MEDS: ondansetron 2 mg/ML SDV 2 mL 4 MG IVP (06:37)
--- NOTE | 2022-06-05 06:39 | PC.NURSE ---
Patient states it's hurting. Patient asked by this nurse what hurts. Patient states, my stomach. This nurse asked patient if she is nauseated. Patient states yes. PRN Zofran given.
[2022-06-05 06:54] LABS: Alanine Aminotransferase 12 U/L (0-33); Alkaline Phosphatase 154 U/L (35-105); Anion Gap 13.7 (5-19); Aspartate Amino Transferase 17 U/L (0-32); Blood Urea Nitrogen 9 mg/dL (8-23); Carbon Dioxide 23 mmol/L (22-29); Chloride 109 mmol/L (98-107); Globulin 2.8 g/dL (1.3-4.6); Glucose 115 mg/dL (65-115); Osmolality Calculated 294 mOsm/kg (285-295); Potassium 3.7 mmol/L (3.5-5.1); Sodium 142 mmol/L (136-145); Total Bilirubin 0.3 mg/dL (0.15-1.2); Total Protein 6.8 g/dL (6.6-8.7)
[2022-06-05 07:00] LABS: Procalcitonin 0.03 ng/mL (0-0.5)
--- NOTE | 2022-06-05 07:04 | PC.NURSE ---
Dr. Glover notified that patient is c/o abdominal pain this morning. Also notified that patient would not take any of her PO medications last night. We attempted x3 and patient would spit them out.
[2022-06-05] MEDS: buPROPion SR (12 HR) 150 mg Tablet 100 MG PO (08:32)
[2022-06-05] MEDS: fluoxetine 20 mg Capsule 40 MG PO (08:32)
[2022-06-05] MEDS: lamoTRIgine 100 mg Tablet 150 MG PO ×2 (08:32→08:34)
[2022-06-05] MEDS: pregabalin 100 mg Capsule 200 MG PO ×2 (08:33→22:48)
[2022-06-05] MEDS: pantoprazole DR 40 mg Tablet PO (08:33)
[2022-06-05] MEDS: quetiapine 300 mg Tablet PO (09:34)
[2022-06-05] MEDS: quetiapine 100 mg Tablet 200 MG PO (09:34)
[2022-06-05] MEDS: meropenem 1,000 MG in sodium chloride 0.9% (plus) 50 ML 100 MG IV ×2 (09:43→18:30)
--- NOTE | 2022-06-05 12:42 | P.PN_ITS ---
Subjective Subjective: Patient was seen this morning, she is alert to person, to place, not to time, her emotions significantly fluctuate, she goes from related to sad and crying, she tells me that she she needs help, but does not specify why, at other times she is very elevated, she refused to take her Seroquel last night and spit it up according to nursing staff, I asked her about this she said she was sorry and that she wanted help, and she was agreeable to take the medication this morning Vitals/I&O/Wt Last Vital Signs Temp 98.3 F 06/05/22 11:27 Pulse 109 H 06/05/22 11:27 Resp 18 06/05/22 11:27 BP 166/86 06/05/22 11:27 Pulse Ox 94 06/05/22 11:27 O2 Del Method 06/05/22 11:27 06/04/22 06/05/22 06/05/22 22:59 06:59 14:59 Intake Total 50 / 255 961.25 / 1216.25 50 / 50 Output Total 700 / 700 Balance 50 / 255 261.25 / 516.25 50 / 50 Weight last 48 hrs Weight 100.783 kg Weight 95.254 kg Physical Exam Const: COMMON NORMALS: no acute distress ORIENTATION/CONSCIOUSNESS: Yes awake, Yes oriented to person and Yes oriented to place Resp: COMMON NORMALS: normal respiratory effort, No retractions, No use of accessory muscles and clear to auscultation bilaterally AUSCULTATION: clear to auscultation bilaterally Cardio: COMMON NORMALS: regular rate, regular rhythm, S1 normal heart sound present and S2 normal heart sound present RATE: regular rate RHYTHM: regular rhythm HEART SOUNDS: S1 normal heart sound present and S2 normal heart sound present GI: COMMON NORMALS: Normal to inspection, nondistended, normoactive bowel sounds present, non-tender and no masses Extremity: COMMON NORMALS: no pedal edema Neuro: SENSORIUM/ORIENTATION: Yes oriented to person and Yes oriented to place Psych: MOOD & AFFECT: Yes elevated mood, Yes sad and Yes tearful Urinary Catheter Management: Alcantara: Cath Placed During This Visit: yes Reason for Continuing Indwelling Catheter: Accurate Measurement of Urinary Output in Critically Ill Patients Urinary Catheter Date of Insertion: 06/04/22 Urinary Catheter Time of Insertion: 10:00 Data : 06/05/22 06:21 06/05/22 06:21 Micro: Microbiology 06/04/22 00:27 Blood Culture - Preliminary Blood NEGATIVE TO DATE 06/04/22 00:25 Blood Culture - Preliminary Blood NEGATIVE TO DATE 06/03/22 20:35 Urine Culture - Preliminary Urine,Clean Catch Gram Negative Rods A&P Assessment and plan (1) Altered mental status: Patient presented with AMS, currently alert to person, to place, not to time, patient's mood is fluctuating between related to depressed Likely secondary to UTI, resolving Likely secondary to methamphetamine use, resolved Likely related to refusal to take her Seroquel Follow urine cultures, blood cultures Broaden antibiotic therapy to meropenem for ESBL During her last hospitalization, she required ICU admission due to changes in her mentation, difficult titration of her psychotropic medications, monitor mentation closely We will have nursing staff give her the Seroquel this morning Will continue bupropion 100 mg twice daily, lamotrigine 150 mg p.o. every morning, Seroquel 500 mg daily, holding doses of pregabalin. QTc interval reviewed, currently within range at 455 ms. Monitor QTc interval as she is receiving Haldol, Zyprexa as needed for agitation Monitor for improvement with initiation of IV antibiotics, adjustment in home medications (2) Urinary tract infection: Meropenem (3) COPD (chronic obstructive pulmonary disease): DuoNebs and budesonide inhalation scheduled. 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
[2022-06-05] MEDS: dextrose 5%-sod chloride 0.9% 1,000 ML 75 ML IV (15:30)
--- NOTE | 2022-06-05 19:45 | PC.NURSE ---
Went in to check patient's vitals and round on the patient. Pt was not wearing a nasal cannula and no supplemental oxygen was turned on. The SpO2% was 77% when I checked it on the pt. I applied a nasal cannula with 2L of oxygen and continously monitored the SpO2 until it came up to 92%. Took the rest of pt vitals and left the room to notify the nurse. Left O2 via nasal cannula on pt.
[2022-06-05] MEDS: enoxaparin 40 mg/0.4 mL Syringe SUBCUT (22:47)
[2022-06-06] VITALS (11 sets, daily range): BP systolic 121–146; BP diastolic 70–77; PULSE 70–97; RESP 16–20; TEMP 36.8–38.3; O2SAT 91–98
[2022-06-06] MEDS: meropenem 1,000 MG in sodium chloride 0.9% (plus) 50 ML 100 MG IV (02:03)
[2022-06-06] MEDS: acetaminophen 325 mg Tablet 650 MG PO ×2 (03:42→20:21)
[2022-06-06 04:44] LABS: Basophils % 0.2 %; Eosinophils # 0.1 10^3/uL (0.0-0.8); Eosinophils % 1.5 %; Hematocrit 42.3 % (37.0-47.0); Hemoglobin 13.2 g/dL (11.5-15.3); Lymphocytes # 2.4 10^3/uL (0.8-4.8); Lymphocytes % 26.1 %; Mean Corpuscular HGB Conc 31.2 g/dL (30.0-36.0); Mean Corpuscular Hemoglobin 27.9 pg (28.0-34.0); Mean Corpuscular Volume 89.4 fl (81-99); Monocytes # 0.9 10^3/uL (0.2-0.9); Monocytes % 9.7 %; Neutrophils # 5.64 10^3/uL (1.8-7.7); Neutrophils % 62.2 %; Nucleated Red Blood Cells % 0 %; Platelet Count 299 10^3/cmm (130-400); Red Blood Count 4.73 10^6/uL (4.1-5.3); Red Cell Distribution Width 14.6 % (12.1-15.1); White Blood Count 9.1 10^3/uL (4.0-10.0)
[2022-06-06 05:09] LABS: Alanine Aminotransferase 10 U/L (0-33); Alkaline Phosphatase 158 U/L (35-105); Anion Gap 13.4 (5-19); Aspartate Amino Transferase 17 U/L (0-32); Blood Urea Nitrogen 6 mg/dL (8-23); C Reactive Protein 9.8 mg/L (0.0-4.9); Calcium 9.3 mg/dL (8.5-10.5); Carbon Dioxide 24 mmol/L (22-29); Chloride 106 mmol/L (98-107); Globulin 2.7 g/dL (1.3-4.6); Glucose 99 mg/dL (65-115); Osmolality Calculated 288 mOsm/kg (285-295); Potassium 3.4 mmol/L (3.5-5.1); Sodium 140 mmol/L (136-145); Total Bilirubin 0.3 mg/dL (0.15-1.2); Total Protein 6.7 g/dL (6.6-8.7)
[2022-06-06 05:15] LABS: Procalcitonin 0.03 ng/mL (0-0.5)
[2022-06-06] MEDS: dextrose 5%-sod chloride 0.9% 1,000 ML 75 ML IV (05:57)
[2022-06-06] MEDS: quetiapine 300 mg Tablet PO (09:45)
[2022-06-06] MEDS: buPROPion SR (12 HR) 150 mg Tablet 100 MG PO ×2 (09:45→18:03)
[2022-06-06] MEDS: quetiapine 100 mg Tablet 200 MG PO (09:45)
[2022-06-06] MEDS: cefdinir 300 MG CAPSULE PO ×2 (09:45→18:03)
[2022-06-06] MEDS: fluoxetine 20 mg Capsule 40 MG PO (09:46)
[2022-06-06] MEDS: pantoprazole DR 40 mg Tablet PO (09:46)
[2022-06-06] MEDS: pregabalin 100 mg Capsule 200 MG PO ×3 (09:46→20:21)
[2022-06-06] MEDS: lamoTRIgine 100 mg Tablet 150 MG PO (09:46)
[2022-06-06] MEDS: potassium chloride ER 20 mEq Tablet 40 MEQ PO (09:46)
--- NOTE | 2022-06-06 14:55 | P.PN_ITS ---
Subjective Subjective: Patient was seen this morning she is much more alert and awake, she follows all commands, alert to person, to place, not to time, she has not had any episodes of agitation, Vitals/I&O/Wt Last Vital Signs Temp 98.4 F 06/06/22 11:31 Pulse 75 06/06/22 11:31 Resp 16 06/06/22 11:31 BP 123/74 06/06/22 11:31 Pulse Ox 96 06/06/22 11:31 O2 Del Method 06/06/22 11:31 O2 Flow Rate 2 06/06/22 11:31 06/05/22 06/06/22 06/06/22 22:59 06:59 14:59 Intake Total 50 / 1100 1650 / 2750 360 / 360 Output Total 1250 / 1250 Balance 50 / 1100 400 / 1500 360 / 360 Physical Exam Const: COMMON NORMALS: no acute distress and patient oriented x3 Resp: COMMON NORMALS: normal respiratory effort, No retractions, No use of accessory muscles and clear to auscultation bilaterally AUSCULTATION: clear to auscultation bilaterally Cardio: COMMON NORMALS: regular rate, regular rhythm, S1 normal heart sound present and S2 normal heart sound present RATE: regular rate RHYTHM: regular rhythm HEART SOUNDS: S1 normal heart sound present and S2 normal heart sound present GI: COMMON NORMALS: Normal to inspection, nondistended, normoactive bowel sounds present, non-tender and no masses Extremity: COMMON NORMALS: no pedal edema Neuro: COMMON NORMALS: patient oriented x3 Psych: COMMON NORMALS: mental status grossly normal Urinary Catheter Management: Alcantara: Cath Placed During This Visit: yes Reason for Continuing Indwelling Catheter: Other Urinary Catheter Date of Insertion: 06/04/22 Urinary Catheter Time of Insertion: 10:00 Data : 06/06/22 03:49 06/06/22 03:49 Micro: Microbiology 06/04/22 13:48 MRSA Culture - Final Nose 06/03/22 20:35 Urine Culture - Final Urine,Clean Catch Escherichia coli A&P Assessment and plan (1) Altered mental status: Patient presented with AMS, resolved Likely secondary to UTI, resolving Likely secondary to methamphetamine use, resolved Follow urine cultures, blood cultures De-escalate antibiotic to Rocephin During her last hospitalization, she required ICU admission due to changes in her mentation, difficult titration of her psychotropic medications, monitor mentation closely Continues to request Will continue bupropion 100 mg twice daily, lamotrigine 150 mg p.o. every morning, Seroquel 500 mg daily, holding doses of pregabalin. QTc interval reviewed, currently within range at 455 ms. Monitor QTc interval as she is receiving Haldol, Zyprexa as needed for agitation Monitor for improvement with initiation of IV antibiotics, adjustment in home medications (2) Urinary tract infection: Meropenem (3) COPD (chronic obstructive pulmonary disease): DuoNebs and budesonide inhalation scheduled. Plan Patient takes multiple psychotropic medications, during her last hospitalization she had severe withdrawals from not taking her medication requiring ICU admission, also had issues with nicotine withdrawal, hyponatremia -Resume her home Lamictal, Seroquel, Wellbutrin, Prozac, Lyrica, -Need to monitor her QT interval -Telemetry monitoring Attestations Medical Necessity Statement*: Patient requires hospitalization for altered mental status, deconditioning Coding Level of Care Code Acute Model Maker Scale for [facility] Fwd Exam Detailed Diagnoses Altered mental status R41.82 Urinary tract infection N39.0 COPD (chronic obstructive pulmonary disease) J44.9
[2022-06-06] MEDS: enoxaparin 40 mg/0.4 mL Syringe SUBCUT (23:26)
[2022-06-07] VITALS (11 sets, daily range): BP systolic 112–134; BP diastolic 69–76; PULSE 70–80; RESP 16–20; TEMP 36.7–37.7; O2SAT 92–97
[2022-06-07] MEDS: acetaminophen 325 mg Tablet 650 MG PO ×3 (02:38→19:27)
[2022-06-07 05:39] LABS: Basophils % 0.3 %; Eosinophils # 0.1 10^3/uL (0.0-0.8); Eosinophils % 1.2 %; Hematocrit 43.6 % (37.0-47.0); Hemoglobin 12.9 g/dL (11.5-15.3); Lymphocytes # 2.8 10^3/uL (0.8-4.8); Lymphocytes % 27.2 %; Mean Corpuscular HGB Conc 29.6 g/dL (30.0-36.0); Mean Corpuscular Hemoglobin 27.6 pg (28.0-34.0); Mean Corpuscular Volume 93.2 fl (81-99); Mean Platelet Volume 9.3 fL (7.4-10.4); Monocytes # 1.1 10^3/uL (0.2-0.9); Monocytes % 10.7 %; Neutrophils # 6.18 10^3/uL (1.8-7.7); Neutrophils % 60.2 %; Nucleated Red Blood Cells % 0 %; Platelet Count 220 10^3/cmm (130-400); Red Blood Count 4.68 10^6/uL (4.1-5.3); Red Cell Distribution Width 14.5 % (12.1-15.1); White Blood Count 10.3 10^3/uL (4.0-10.0)
[2022-06-07 06:01] LABS: Alanine Aminotransferase 11 U/L (0-33); Albumin Level 3.5 g/dL (3.5-5.2); Alkaline Phosphatase 144 U/L (35-105); Blood Urea Nitrogen 7 mg/dL (8-23); C Reactive Protein 54.8 mg/L (0.0-4.9); Calcium 9.2 mg/dL (8.5-10.5); Carbon Dioxide 22 mmol/L (22-29); Chloride 100 mmol/L (98-107); Globulin 3.1 g/dL (1.3-4.6); Glomerular Filtration Rate 125.9 mL/min (90-130); Glucose 110 mg/dL (65-115); Osmolality Calculated 277 mOsm/kg (285-295); Sodium 134 mmol/L (136-145); Total Bilirubin 0.4 mg/dL (0.15-1.2); Total Protein 6.6 g/dL (6.6-8.7)
[2022-06-07 06:04] LABS: Anion Gap 16.1 (5-19); Aspartate Amino Transferase 21 U/L (0-32); Potassium 4.1 mmol/L (3.5-5.1)
[2022-06-07 06:08] LABS: Procalcitonin 0.04 ng/mL (0-0.5)
[2022-06-07] MEDS: cefdinir 300 MG CAPSULE PO ×2 (08:25→17:35)
[2022-06-07] MEDS: fluoxetine 20 mg Capsule 40 MG PO (08:25)
[2022-06-07] MEDS: FUROsemide 10 mg/mL SDV 2mL 20 MG IVP (08:25)
[2022-06-07] MEDS: lamoTRIgine 100 mg Tablet 150 MG PO (08:26)
[2022-06-07] MEDS: pantoprazole DR 40 mg Tablet PO (08:26)
[2022-06-07] MEDS: pregabalin 100 mg Capsule 200 MG PO ×3 (08:26→19:27)
[2022-06-07] MEDS: buPROPion SR (12 HR) 150 mg Tablet 100 MG PO ×2 (08:28→17:35)
[2022-06-07] MEDS: ipratropium-albuterol 3 mL Neb INHALATION ×2 (08:36→13:35)
--- NOTE | 2022-06-07 13:28 | PM.PN ---
Subjective Subjective: Patient was seen this morning, her appetite is improved, she is working with physical therapy, her mentation is significant improved back to baseline, she is having some neck pain she would like a muscle relaxer for that, overall she tells me he is doing better Vitals/I&O/Wt Last Vital Signs Temp 99.2 F 06/07/22 11:23 Pulse 73 06/07/22 11:23 Resp 18 06/07/22 11:23 BP 134/70 06/07/22 11:23 Pulse Ox 96 06/07/22 11:23 O2 Del Method 06/07/22 11:23 O2 Flow Rate 2 06/07/22 11:23 06/06/22 06/07/22 06/07/22 23:59 06:59 14:59 Intake Total 480 / 480 Output Total Balance 480 / 480 Physical Exam Const: COMMON NORMALS: no acute distress and patient oriented x3 Resp: COMMON NORMALS: normal respiratory effort, No retractions, No use of accessory muscles and clear to auscultation bilaterally AUSCULTATION: clear to auscultation bilaterally Cardio: COMMON NORMALS: regular rate, regular rhythm, S1 normal heart sound present and S2 normal heart sound present RATE: regular rate RHYTHM: regular rhythm HEART SOUNDS: S1 normal heart sound present and S2 normal heart sound present GI: COMMON NORMALS: Normal to inspection, nondistended, normoactive bowel sounds present and non-tender Neuro: COMMON NORMALS: patient oriented x3 Psych: COMMON NORMALS: mental status grossly normal Urinary Catheter Management: Alcantara: Cath Placed During This Visit: yes Reason for Continuing Indwelling Catheter: Acute Urinary Retention or Obstruction Urinary Catheter Date of Insertion: 06/04/22 Urinary Catheter Time of Insertion: 10:00 Data : 06/07/22 05:08 06/07/22 05:08 A&P Assessment and plan (1) Altered mental status: Patient presented with AMS, resolved Likely secondary to UTI, resolving Likely secondary to methamphetamine use, resolved Follow urine cultures, blood cultures De-escalate antibiotic to cefdinir During her last hospitalization, she required ICU admission due to changes in her mentation, difficult titration of her psychotropic medications, monitor mentation closely Continues to improve Will continue bupropion 100 mg twice daily, lamotrigine 150 mg p.o. every morning, Seroquel 500 mg daily, holding doses of pregabalin. QTc interval reviewed, currently within range at 455 ms. Monitor QTc interval as she is receiving Haldol, Zyprexa as needed for agitation Monitor for improvement with initiation of IV antibiotics, adjustment in home medications Working on placement (2) Urinary tract infection: Currently on cefdinir (3) COPD (chronic obstructive pulmonary disease): DuoNebs and budesonide inhalation scheduled. Plan Patient takes multiple psychotropic medications, during her last hospitalization she had severe withdrawals from not taking her medication requiring ICU admission, also had issues with nicotine withdrawal, hyponatremia -Resume her home Lamictal, Seroquel, Wellbutrin, Prozac, Lyrica, -Need to monitor her QT interval -Telemetry monitoring -Continue PT OT Attestations Medical Necessity Statement*: Patient requires hospitalization for altered mental status, UTI, improving, working on placement Coding Level of Care Code Acute Java Oracle Developer for Dorcas Oliver Diagnoses Altered mental status R41.82 Urinary tract infection N39.0 COPD (chronic obstructive pulmonary disease) J44.9
[2022-06-07] MEDS: cyclobenzaprine 10 mg Tablet 5 MG PO (16:48)
[2022-06-07] MEDS: quetiapine 300 mg Tablet PO (19:27)
[2022-06-07] MEDS: quetiapine 100 mg Tablet 200 MG PO (19:28)
--- NOTE | 2022-06-07 19:31 | PC.NURSE ---
NECK PAIN Tearful and anxious c/o neck pain which increases with any movement. Given po Tylenol but she says is not helping at all. Ice pack in place. Also went ahead and gave her pm meds to help with anxiousness.
[2022-06-07] MEDS: enoxaparin 40 mg/0.4 mL Syringe SUBCUT (23:19)
[2022-06-08] VITALS (12 sets, daily range): BP systolic 100–133; BP diastolic 65–81; PULSE 68–133; RESP 12–20; TEMP 36.5–37.6; O2SAT 90–97
[2022-06-08] MEDS: acetaminophen 325 mg Tablet 650 MG PO ×3 (01:11→21:30)
[2022-06-08] MEDS: cyclobenzaprine 10 mg Tablet 5 MG PO ×2 (02:48→17:18)
[2022-06-08] MEDS: cefdinir 300 MG CAPSULE PO ×2 (08:06→17:16)
[2022-06-08] MEDS: lamoTRIgine 100 mg Tablet 150 MG PO (08:06)
[2022-06-08] MEDS: fluoxetine 20 mg Capsule 40 MG PO (08:06)
[2022-06-08] MEDS: buPROPion SR (12 HR) 150 mg Tablet 100 MG PO ×2 (08:06→17:16)
[2022-06-08] MEDS: pregabalin 100 mg Capsule 200 MG PO ×3 (08:06→21:25)
[2022-06-08] MEDS: pantoprazole DR 40 mg Tablet PO (08:07)
--- NOTE | 2022-06-08 11:49 | P.PN_ITS ---
Subjective Subjective: She was awake and alert however could not sleep last night, she was complaining of neck pain during our conversation she was going back to sleep again again However she is not confused able to follow commands and answer Vitals/I&O/Wt Last Vital Signs Temp 98.6 F 06/08/22 07:56 Pulse 78 06/08/22 08:00 Resp 16 06/08/22 08:00 BP 122/75 06/08/22 07:56 Pulse Ox 94 06/08/22 08:00 O2 Del Method 06/08/22 08:00 O2 Flow Rate 2 06/08/22 08:00 06/07/22 06/08/22 06/08/22 22:59 06:59 14:59 Intake Total 390 / 870 240 / 1110 240 / 240 Output Total 2800 / 2800 Balance -2410 / -1930 240 / -1690 240 / 240 Physical Exam Narrative: NIH is 0 No signs of meningoencephalitis Awake and alert Drowsy Able to follow commands S1, S2 Looks euvolemic She has started herself with her urine Abdomen is soft Looks euvolemic Currently on 2 L nasal cannula No audible stridor or wheezing Urinary Catheter Management: Alcantara: Cath Placed During This Visit: yes, but has since been removed by the nurse Reason for Continuing Indwelling Catheter: Decision to DC Catheter Urinary Catheter Date of Insertion: 06/04/22 Urinary Catheter Time of Insertion: 10:00 Date Urinary Catheter Removed: 06/07/22 Time Urinary Catheter Discontinued: 18:07 Data : 06/07/22 05:08 06/07/22 05:08 A&P Assessment and plan (1) Urinary tract infection: (2) COPD (chronic obstructive pulmonary disease): (3) Altered mental status: (4) Borderline personality disorder: (5) Schizoaffective disorder, bipolar type: Plan Level 2 pre auth approval is pending Metabolic encephalopathy related to UTI: Resolved Afebrile I would not repeat her labs for tomorrow Awaiting placement No signs of meningoencephalitis She is currently on opioids for evaluation Previous history of meth abuse Full code Regular diet Continue antipsychotics for her bipolar disorder mood stabilizer Attestations Medical Necessity Statement*: Continue medical management Time Spent in Patient Care: 30 Coding Level of Care Code Acute Audio Experience Expert for Dorcas Oliver Diagnoses Urinary tract infection N39.0 COPD (chronic obstructive pulmonary disease) J44.9 Altered mental status R41.82 Borderline personality disorder F60.3 Schizoaffective disorder, bipolar type F25.0
[2022-06-08] MEDS: oxyCODONE 5 mg IR Tab/Cap PO ×2 (13:34→18:11)
[2022-06-08] MEDS: ipratropium-albuterol 3 mL Neb INHALATION (21:24)
[2022-06-08] MEDS: quetiapine 300 mg Tablet PO (21:26)
[2022-06-08] MEDS: quetiapine 100 mg Tablet 200 MG PO (21:26)
[2022-06-08] MEDS: enoxaparin 40 mg/0.4 mL Syringe SUBCUT (23:28)
[2022-06-09] VITALS (13 sets, daily range): BP systolic 109–119; BP diastolic 69–76; PULSE 56–96; RESP 12–18; TEMP 36.7–37.4; O2SAT 90–96
[2022-06-09] MEDS: fluoxetine 20 mg Capsule 40 MG PO (08:00)
[2022-06-09] MEDS: cefdinir 300 MG CAPSULE PO ×2 (08:00→17:26)
[2022-06-09] MEDS: sennosides-docusate Tablet 1 TAB PO (08:01)
[2022-06-09] MEDS: buPROPion SR (12 HR) 150 mg Tablet 100 MG PO ×2 (08:01→17:26)
[2022-06-09] MEDS: lamoTRIgine 100 mg Tablet 150 MG PO (08:01)
[2022-06-09] MEDS: pregabalin 100 mg Capsule 200 MG PO (08:01)
[2022-06-09] MEDS: pantoprazole DR 40 mg Tablet PO (08:01)
[2022-06-09] MEDS: oxyCODONE 5 mg IR Tab/Cap PO ×2 (10:21→17:26)
[2022-06-09] MEDS: ipratropium-albuterol 3 mL Neb INHALATION (11:19)
--- NOTE | 2022-06-09 11:25 | P.PN_ITS ---
Subjective Subjective: Patient is stating that her neck pain has improved She was happy with the progress today No active complaints Vitals/I&O/Wt Last Vital Signs Temp 98.2 F 06/09/22 08:00 Pulse 81 06/09/22 11:21 Resp 18 06/09/22 11:21 BP 115/73 06/09/22 08:00 Pulse Ox 95 06/09/22 11:21 O2 Del Method 06/09/22 11:21 O2 Flow Rate 2 06/09/22 00:00 06/08/22 06/09/22 06/09/22 22:59 06:59 14:59 Intake Total 720 / 960 Balance 720 / 960 Physical Exam Narrative: Awake and alert Nonfocal neuro exam Laying supine Hemodynamically stable Currently on room air Abdomen soft Lower extremity no edema S1, S2 No audible stridor or wheeze Urinary Catheter Management: Alcantara: Cath Placed During This Visit: yes, but has since been removed by the nurse Reason for Continuing Indwelling Catheter: Decision to DC Catheter Urinary Catheter Date of Insertion: 06/04/22 Urinary Catheter Time of Insertion: 10:00 Date Urinary Catheter Removed: 06/07/22 Time Urinary Catheter Discontinued: 18:07 Data : 06/07/22 05:08 06/07/22 05:08 Micro: Microbiology 06/04/22 00:27 Blood Culture - Final Blood NO GROWTH AFTER 5 DAYS 06/04/22 00:25 Blood Culture - Final Blood NO GROWTH AFTER 5 DAYS A&P Assessment and plan (1) Urinary tract infection: (2) COPD (chronic obstructive pulmonary disease): (3) Metabolic encephalopathy: Plan Awaiting placement Continue antibiotics No need of labs for tomorrow No active neck pain today Currently regular diet DVT prophylaxis on board Attestations Medical Necessity Statement*: Awaiting placement Time Spent in Patient Care: 10 Coding Level of Care Code Acute Early Childhood Lead Teacher for g Fwd Diagnoses Urinary tract infection N39.0 COPD (chronic obstructive pulmonary disease) J44.9 Metabolic encephalopathy G93.41
[2022-06-09] MEDS: quetiapine 100 mg Tablet 200 MG PO (20:36)
[2022-06-09] MEDS: enoxaparin 40 mg/0.4 mL Syringe SUBCUT (23:15)
[2022-06-10] VITALS (13 sets, daily range): BP systolic 110–149; BP diastolic 65–86; PULSE 68–84; RESP 13–18; TEMP 36.7–37; O2SAT 91–96
[2022-06-10] MEDS: cyclobenzaprine 10 mg Tablet 5 MG PO ×3 (00:20→22:51)
[2022-06-10] MEDS: oxyCODONE 5 mg IR Tab/Cap PO ×3 (00:21→17:28)
[2022-06-10] MEDS: pantoprazole DR 40 mg Tablet PO (08:43)
[2022-06-10] MEDS: fluoxetine 20 mg Capsule 40 MG PO (08:43)
[2022-06-10] MEDS: cefdinir 300 MG CAPSULE PO ×2 (08:43→17:27)
[2022-06-10] MEDS: lamoTRIgine 100 mg Tablet 150 MG PO (08:43)
[2022-06-10] MEDS: sennosides-docusate Tablet 1 TAB PO (08:44)
--- NOTE | 2022-06-10 09:44 | PC.CHAP ---
Pastoral Care Encounter/Spiritual Assessment Type of Contact [] Declined pharmacology teacher visit [] Patient/Family/Request visit [] Outpatient visit [] Follow-up visit [] Physician referral [] Code/Alert [x] Routine visit [] Staff referral [] Actively dying [] Patient sleeping [] Family support [] [] Out of room [] Palliative care [] [] Receiving care in room [] Pre-surgical visit [] Trauma [] Long length of stay [] ICU visit [] Other: Relational/Emotional Strength [x] Patient feels connected with others/family/visitors/staff [] Distress [] Loneliness/isolation [] Abandonment Spirituality of Patient [x] Person of Love [] Attends Tenriism of their Love [] Believes in Prayer [] Reads Bible or Sabianism materials [] There are Spiritual issues to be addressed Environmental Services Manager Interventions [x] Prayer [x] Active listening [x] Non-anxious presence [x] Spiritual/emotional support [] Crisis/trauma care [] Spiritual counseling [] Bereavement support [] Provided bereavement packet [] Provided Bible/devotional materials [] Provided toy/stuffed animal, coloring book to patient or family member [] Provided Communion [] Anointing/[place] [] Salvation [x] Completed spiritual assessment [] Other: Impact on Illness or Injury [] Angry [] Fearful [] Anxious [] Often cries [] Exhaustion [] Unable to work [] Unable to attend latter day [] Unable to walk/stand [] Unable to read [] Unable to drive [] Unable to eat/drink [] Unable to sleep [] Unable to be with family [] Patient intubated [] Other: Summary Pt looking at going to a nursing facility upon her release from hospital. Would like to be able to go to one in which is where her daughter lives. However, having trouble finding a facility. Pt did not think she had spoken with a social media strategist so pharmacology teacher suggested she do so. I attempted to find nurse to let nursing staff know but could not make contact with her nurse. Did tell Pt to ask when nurse came to check in on her. Pt has a daughter who lives in and she has several small children. Pt's other daughter lives out of state and she does not have the opportunity to see those grandchildren Time spent with patient 15m
[2022-06-10] MEDS: buPROPion SR (12 HR) 100 mg Tablet PO ×2 (09:47→17:27)
--- NOTE | 2022-06-10 10:28 | PM.PN ---
Subjective Subjective: Patient is doing well no active complaints Vitals/I&O/Wt Last Vital Signs Temp 98.0 F 06/10/22 07:57 Pulse 73 06/10/22 08:00 Resp 18 06/10/22 08:44 BP 124/73 06/10/22 07:57 Pulse Ox 93 06/10/22 08:00 O2 Del Method 06/10/22 08:00 O2 Flow Rate 2 06/09/22 00:00 06/09/22 06/10/22 06/10/22 22:59 06:59 14:59 Intake Total 840 / 1320 360 / 1680 480 / 480 Output Total 1150 / 1650 650 / 2300 Balance -310 / -330 -290 / -620 480 / 480 Physical Exam Narrative: Patient is laying supine Currently on room air Awake and alert Nonfocal neuro exam S1/ No audible stridor or wheezing Urinary Catheter Management: Alcantara: Cath Placed During This Visit: yes, but has since been removed by the nurse Reason for Continuing Indwelling Catheter: Decision to DC Catheter Urinary Catheter Date of Insertion: 06/04/22 Urinary Catheter Time of Insertion: 10:00 Date Urinary Catheter Removed: 06/07/22 Time Urinary Catheter Discontinued: 18:07 Data : 06/07/22 05:08 06/07/22 05:08 A&P Assessment and plan (1) Metabolic encephalopathy: (2) Urinary tract infection: Plan Awaiting placement no change in medications no new labs Attestations Medical Necessity Statement*: Awaiting placement Time Spent in Patient Care: 10 Coding Level of Care Code Acute Broommaking Supervisor for [facility] Diagnoses Metabolic encephalopathy G93.41 Urinary tract infection N39.0
[2022-06-10] MEDS: acetaminophen 325 mg Tablet 650 MG PO (16:23)
[2022-06-10] MEDS: quetiapine 100 mg Tablet 200 MG PO (20:39)
[2022-06-10] MEDS: enoxaparin 40 mg/0.4 mL Syringe SUBCUT (22:51)
[2022-06-11] VITALS (7 sets, daily range): BP systolic 114–132; BP diastolic 73–89; PULSE 60–70; RESP 16–18; TEMP 36.7–36.9; O2SAT 90–96
[2022-06-11] MEDS: oxyCODONE 5 mg IR Tab/Cap PO ×2 (07:37→15:33)
[2022-06-11] MEDS: ondansetron 2 mg/ML SDV 2 mL 4 MG IVP (07:37)
[2022-06-11] MEDS: fluoxetine 20 mg Capsule 40 MG PO (09:48)
[2022-06-11] MEDS: buPROPion SR (12 HR) 100 mg Tablet PO (09:49)
[2022-06-11] MEDS: lamoTRIgine 100 mg Tablet 150 MG PO (09:49)
[2022-06-11] MEDS: pantoprazole DR 40 mg Tablet PO (09:49)
[2022-06-11] MEDS: sennosides-docusate Tablet 1 TAB PO (09:49)
[2022-06-11] MEDS: cefdinir 300 MG CAPSULE PO (09:49)
--- NOTE | 2022-06-11 12:17 | PM.PN ---
Subjective Subjective: Patient was nauseous this morning No no overnight events She had 1 bowel movement yesterday when passing gas Patient is stating that she was to go home, her daughter is not picking up the phone I did try to call the family Vitals/I&O/Wt Last Vital Signs Temp 98.0 F 06/11/22 08:00 Pulse 69 06/11/22 08:00 Resp 16 06/11/22 08:00 BP 129/89 06/11/22 08:00 Pulse Ox 90 06/11/22 08:00 O2 Del Method 06/11/22 08:00 O2 Flow Rate 2 06/09/22 00:00 06/10/22 06/11/22 06/11/22 22:59 06:59 14:59 Intake Total 240 / 840 240 / 1080 Output Total 200 / 450 Balance 40 / 390 240 / 630 Physical Exam Narrative: S1, S2 Abdomen soft Awake and alert Currently on room air No signs of fluid overload Pleasant during my evaluation No active distress Urinary Catheter Management: Alcantara: Cath Placed During This Visit: yes, but has since been removed by the nurse Reason for Continuing Indwelling Catheter: Decision to DC Catheter Urinary Catheter Date of Insertion: 06/04/22 Urinary Catheter Time of Insertion: 10:00 Date Urinary Catheter Removed: 06/07/22 Time Urinary Catheter Discontinued: 18:07 Data : 06/07/22 05:08 06/07/22 05:08 A&P Assessment and plan (1) Metabolic encephalopathy: (2) COPD (chronic obstructive pulmonary disease): (3) Urinary tract infection: Plan Awaiting placement Attestations Medical Necessity Statement*: Awaiting placement Time Spent in Patient Care: 5 Coding Level of Care Code Acute Tax Services Professional for g Fwd Diagnoses Metabolic encephalopathy G93.41 COPD (chronic obstructive pulmonary disease) J44.9 Urinary tract infection N39.0
[2022-06-11] MEDS: cyclobenzaprine 10 mg Tablet 5 MG PO (13:31)
--- NOTE | 2022-06-11 14:40 | P.DS_ITS ---
Discharge Providers Date of Admission: 06/03/22 22:25 Date of Discharge: June 11, 2022 Attending Provider at Admission: Giuliana Ocasio MD Attending Provider at Discharge: Murray Ponce MD Primary Care Provider: Nicole Louis MD Diagnoses at Discharge Discharge Diagnosis (1) Metabolic encephalopathy: Status: Acute (2) COPD (chronic obstructive pulmonary disease): Status: Acute (3) Urinary tract infection: Status: Acute Reason for Visit Reason for Visit: OVERDOSE Hospital Course Hospital Course 8-year-old female who has multiple comorbid conditions was admitted for metabolic encephalopathy related to UTI. She was treated with IV antibiotics initially with ceftriaxone which was switched to cefdinir. Her metabolic encephalopathy improved. She was very calm and cooperative. No suicidal ideation. 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 We were in the process of getting level through prior authorization which took about 8 days without any significant positive feedback, patient is stating that she would like to go home, daughter is able to take her home she is stating that she is in midst of and 1 we will take over however patient does carry decision- making capacity she is willing to honor her wishes for now and I will discharge her home. She does not need any antibiotics for now she has finished 8 days. Physical Exam Narrative: S1, S2 Abdomen soft Awake and alert Currently on room air No signs of fluid overload Pleasant during my evaluation No active distres Urinary Catheter Management: Alcantara: Cath Placed During This Visit: yes, but has since been removed by the nurse Reason for Continuing Indwelling Catheter: Decision to DC Catheter Urinary Catheter Date of Insertion: 06/04/22 Urinary Catheter Time of Insertion: 10:00 Date Urinary Catheter Removed: 06/07/22 Time Urinary Catheter Discontinued: 18:07 Discharge Data Studies Completed and Pending Completed Studies During Hospitalization Category Date Time Status CT abdomen pelvis wo con [id number] Routine Cat Scan 06/03/22 23:[address] head wo con* [id number] Routine Cat Scan 06/03/22 23:09 Completed XR chest 1V portable [id number] Stat Exams 06/03/22 18:57 Completed Radiology Impressions Chest X-Ray 06/03/22 18:57 IMPRESSION: 1. No acute findings. 2. Stable pulmonary fine reticular opacity. Possible interstitial lung disease. Head CT 06/03/22 23:09 IMPRESSION: 1. No evidence of intracranial hemorrhage or mass effect. 2. 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 Mild small vessel changes. Moderate parenchymal volume loss. 4. No acute intracranial findings. Abdomen/Pelvis CT 06/03/22 23:20 IMPRESSION: 1. No evidence of obstructing renal or ureteral calculi. No hydronephrosis in either kidney. 2. Alcantara catheter. 3. Prior cholecystectomy and RIGHT ventral abdominal wall hernia repair. 4. No acute findings in the abdomen or pelvis. Laboratory Results WBC 10.3 10^3/uL (4.0-10.0) H 06/07/22 05:08 RBC 4.68 10^6/uL (4.1-5.3) 06/07/22 05:08 Hgb 12.9 g/dL (11.5-15.3) 06/07/22 05:08 Hct 43.6 % (37.0-47.0) 06/07/22 05:08 MCV 93.2 fl (81-99) 06/07/22 05:08 MCH 27.6 pg (28.0-34.0) L 06/07/22 05:08 MCHC 29.6 g/dL (30.0-36.0) L D 06/07/22 05:08 RDW 14.5 % (12.1-15.1) 06/07/22 05:08 Plt Count 220 10^3/cmm (130-400) 06/07/22 05:08 MPV 9.3 fL (7.4-10.4) 06/07/22 05:08 Neut % (Auto) 60.2 % 06/07/22 05:08 Lymph % (Auto) 27.2 % 06/07/22 05:08 Ransom % (Auto) 10.7 % 06/07/22 05:08 Eos % (Auto) 1.2 % 06/07/22 05:08 Baso % (Auto) 0.3 % 06/07/22 05:08 Neut # (Auto) 6.18 10^3/uL (1.8-7.7) 06/07/22 05:08 Lymph # (Auto) 2.8 10^3/uL (0.8-4.8) 06/07/22 05:08 Ransom # (Auto) 1.1 10^3/uL (0.2-0.9) H 06/07/22 05:08 Eos # (Auto) 0.1 10^3/uL (0.0-0.8) 06/07/22 05:08 Baso # (Auto) 0.0 10^3/uL (0.0-0.1) 06/07/22 05:08 Nucleated RBC % (auto) 0 % 06/07/22 05:08 Nucleated RBCs # 0.0 /100WBC 06/07/22 05:08 ESR 24 mm/hr (0-15) H 06/04/22 12:34 D-Dimer 1.20 ug/mIFEU (0-0.59) H 06/03/22 18:55 Sodium 134 mmol/L (136-145) L 06/07/22 05:08 Potassium 4.1 mmol/L (3.5-5.1) 06/07/22 05:08 Chloride 100 mmol/L (98-107) 06/07/22 05:08 Carbon Dioxide 22 mmol/L (22-29) 06/07/22 05:08 Anion Gap 16.1 (5-19) 06/07/22 05:08 BUN 7 mg/dL (8-23) L 06/07/22 05:08 Creatinine 0.5 mg/dL (0.5-0.9) 06/07/22 05:08 GFR Calculation 125.9 mL/min (90-130) 06/07/22 05:08 Glucose 110 mg/dL (65-115) 06/07/22 05:08 Calculated Osmolality 277 mOsm/kg (285-295) L 06/07/22 05:08 Calcium 9.2 mg/dL (8.5-10.5) 06/07/22 05:08 Magnesium 1.7 mg/dL (1.7-2.3) 06/04/22 00:25 Total Bilirubin 0.4 mg/dL (0.15-1.2) 06/07/22 05:08 AST 21 U/L (0-32) 06/07/22 05:08 ALT 11 U/L (0-33) 06/07/22 05:08 Alkaline Phosphatase 144 U/L (35-105) H 06/07/22 05:08 Ammonia 31 umol/L (11-51) 06/03/22 19:28 Troponin T Baseline 8 ng/L (0-10) 06/04/22 12:34 Troponin T 120 Minute 9.24 ng/L (0-10) 06/04/22 17:10 Delta Troponin T 1.24 ABS# (0-10) 06/04/22 17:10 Troponin T Hi Sens 6Hr 7.78 ng/L (0-10) 06/04/22 18:35 Troponin T Hi Sens 6Hr Delta -0.22 ng/L (0-12) L 06/04/22 18:35 C-Reactive Protein 54.8 mg/L (0.0-4.9) H 06/07/22 05:08 Total Protein 6.6 g/dL (6.6-8.7) 06/07/22 05:08 Albumin 3.5 g/dL (3.5-5.2) 06/07/22 05:08 Globulin 3.1 g/dL (1.3-4.6) 06/07/22 05:08 Procalcitonin 0.04 ng/mL (0-0.5) 06/07/22 05:08 TSH 0.77 uIU/mL (0.27-4.20) 06/03/22 18:55 Urine Color Yellow (Yellow) 06/03/22 20:35 Urine Appearance Cloudy (CLEAR) 06/03/22 20:35 Urine pH 6 (5-7) 06/03/22 20:35 Ur Specific [place] 1.020 (1.005-1.030) 06/03/22 20:35 Urine Protein 1+ (Negative) H 06/03/22 20:35 Urine Glucose (UA) Norm (Normal) 06/03/22 20:35 Urine Ketones 2+ (Negative) H 06/03/22 20:35 Urine Blood 2+ (Negative) H 06/03/22 20:35 Urine Nitrate Positive (Negative) H 06/03/22 20:35 Urine Bilirubin 1+ (Negative) H 06/03/22 20:35 Urine Urobilinogen 4 mg/dL (Negative) H 06/03/22 20:35 Ur Leukocyte Esterase 2+ (Negative) H 06/03/22 20:35 Urine RBC 40-50 /hpf (0-2) H 06/03/22 20:35 Urine WBC Too numerous to cnt /hpf (0-5) H 06/03/22 20:35 Ur Squamous Epith Cells 5-10 /hpf (0-5) H 06/03/22 20:35 Amorphous Sediment Not Reportable 06/03/22 20:35 Urine Bacteria 4+ /hpf (NONE) H 06/03/22 20:35 Salicylates < 0.3 mg/dL (3-10) L 06/03/22 18:55 Urine Opiates Screen Negative ng/mL (Negative) 06/03/22 20:35 Acetaminophen < 5.0 ug/mL (10-30) L 06/03/22 18:55 Ur Barbiturates Screen Negative ng/mL (Negative) 06/03/22 20:35 Ur Phencyclidine Scrn Negative ng/mL (Negative) 06/03/22 20:35 Ur Amphetamines Screen Positive ng/mL (Negative) H 06/03/22 20:35 U Benzodiazepines Scrn Positive ng/mL (Negative) H 06/03/22 20:35 Urine Cocaine Screen Negative ng/mL (Negative) 06/03/22 20:35 U Marijuana (THC) Screen Negative ng/mL (Negative) 06/03/22 20:35 Ethyl Alcohol < 10 mg/dL (0-10) 06/03/22 18:55 Vitals Last Vital Signs Temp 98.0 F 06/11/22 12:00 Pulse 60 06/11/22 12:00 Resp 16 06/11/22 12:00 BP 132/82 06/11/22 12:00 Pulse Ox 96 06/11/22 12:00 O2 Del Method 06/11/22 12:00 O2 Flow Rate 2 06/09/22 00:00 Discharge Plan Discharge Patient Disposition: Home Condition: Stable Prescriptions: Continued epinephrine [EpiPen 2-Reji] 0.3 mg/0.3 mL auto-injector 0.3 mg IM Q15M PRN (Reason: anaphylaxis) Qty: 2 0RF Rx Instructions: for 2 doses potassium chloride 20 mEq tablet,ER particles/crystals 20 meq PO DAILY loperamide [Anti-Diarrheal (loperamide)] 2 mg capsule 2 mg PO DIRECTED PRN (Reason: Diarrhea) Rx Instructions: Give 2 capsule after first loose stool, 1 capsule after each subsequent loose stool, but no more than 4 tabs in 24 hours. fluoxetine 40 mg capsule 80 mg PO DAILY Qty: 60 1RF quetiapine 400 mg tablet 600 - 800 mg PO BEDTIME Qty: 60 1RF lamotrigine 100 mg tablet 150 mg PO QAM Qty: 45 1RF bupropion HCl 150 mg tablet sustained-release 12 hr 150 mg PO BID Qty: 60 1RF varenicline [Chantix Continuing Month Box] 1 mg tablet 1 mg PO BID Qty: 56 1RF Anoro Ellipta 62.5-25 mcg/actuation blister with device 1 inh inhalation DAILY 30 Days Qty: 60 3RF promethazine 12.5 mg tablet 12.5 mg PO DAILY PRN (Reason: nausea and vomiting) 30 Days Qty: 30 5RF One Daily 27 mg iron- 800 mcg tablet 1 tab PO DAILY 90 Days Qty: 90 1RF albuterol sulfate 90 mcg/actuation HFA aerosol inhaler 2 puff INHALATION Q6H PRN (Reason: shortness of breath or wheezing) 30 Days Qty: 18 5RF budesonide 0.5 mg/2 mL suspension for nebulization 0.5 mg inhalation BID Qty: 60 5RF albuterol sulfate 2.5 mg /3 mL (0.083 %) solution for nebulization 2.5 mg inhalation Q4H PRN (Reason: shortness of breath or wheezing) Qty: 180 5RF famotidine 20 mg tablet 20 mg PO BID 30 Days Qty: 60 5RF pregabalin [Lyrica] 200 mg capsule 200 mg PO TID (DME) Wheelchair See Rx Instructions .Route .MEDSUPPLY Qty: 1 0RF Rx Instructions: As directed ibuprofen 800 mg tablet 800 mg PO TID PRN (Reason: pain) 30 Days Qty: 90 2RF Rx Instructions: WITH FOOD hydrocodone-acetaminophen 5-325 mg tablet 1 tab PO BID PRN (Reason: pain (scale score 7-10)) Qty: 6 0RF Discharge Orders: Discharge Order (Routine); Ordered 06/11/22 Ordered By: Murray Ponce Referrals: Nicole Louis MD [Primary Care Provider] - 06/18/22 11:00 am Patient Instructions: Opioid Safety Discharge Attestations Time Spent in Discharge Care*: less than 30 min Status at Discharge: Cognitive status at discharge: mildly impaired cognition , Behavioral status at discharge: cooperative , Quality Metrics Clinical Quality Measures [ No reported AMI, CVA or VTE this stay] Coding Level of Care Code Acute Chg FW DC note Diagnoses Metabolic encephalopathy G93.41 COPD (chronic obstructive pulmonary disease) J44.9 Urinary tract infection N39.0
== END 2022-06-11 19:00 | disposition home or self-care (01) | DRG 689 ==
LOC: ER 22:24 → MEDSURG 23:08
PROVIDERS: Emergency Medicine; Family Medicine; Admitting Provider Student in an Organized Health Care Education/Training Program; Emergency Provider Emergency Medicine; PCP Family Medicine; Visit Provider Internal Medicine
DX: N39.0 Urinary tract infection, site not specified (principal); G93.41 Metabolic encephalopathy; F25.0 Schizoaffective disorder, bipolar type; J44.9 Chronic obstructive pulmonary disease, unspecified; I27.20 Pulmonary hypertension, unspecified; F15.10 Other stimulant abuse, uncomplicated; F60.3 Borderline personality disorder; G89.4 Chronic pain syndrome; M50.30 Other cervical disc degeneration, unspecified cervical region; M47.816 Spondylosis without myelopathy or radiculopathy, lumbar region; K21.9 Gastro-esophageal reflux disease without esophagitis; B18.2 Chronic viral hepatitis C; F17.210 Nicotine dependence, cigarettes, uncomplicated; Z79.51 Long term (current) use of inhaled steroids; Z79.891 Long term (current) use of opiate analgesic
CPT/HCPCS: 36415; 51702; 70450; 71045; 74176; 80053; 80306; 80307; 81001; 82140; 83735; 84145; 84443; 84484; 85025; 85378; 85651; 86140; 87040; 87077; 87086; 87186; 87641; 92523; 92526; 92610; 93005; 94640; 96365; 96367; 96372; 97110; 97162; 97530; 99285; J0696; J1630; J1650; J1940; J1956; J2185; J2405; J3475; J3480; J3490; J7030; J7042; J7626

== ENCOUNTER → 2022-07-20 10:39 | Outpatient (BNVA) | payer MEDICAID, SELFPAY | PROVIDERS: PCP Family Medicine; Visit Provider Family Medicine | DX: M47.26 Other spondylosis with radiculopathy, lumbar region (principal); M25.511 Pain in right shoulder; M25.512 Pain in left shoulder; M25.572 Pain in left ankle and joints of left foot; G89.29 Other chronic pain; Z23 Encounter for immunization | CPT/HCPCS: 73030 ==

== ENCOUNTER 2022-09-08 14:56 | Emergency (ER) | payer MEDICAID, SELFPAY ==
[2022-09-08 14:58] VITALS: BMI 34.2
--- NOTE | 2022-09-08 15:11 | ECG_ITS ---
[facility] Test Date: 2022-09-08 Pat Name: Dalila Samuels Department: Room: Gender: Female [employer]armed [employer]: : 1960 Requested By: Jasen Khan Order Number: [id number] Danae MD: Abhishek Perkins M.D. Measurements Intervals [place] Rate: 79 P: 59 MI: 162 QRS: 14 QRSD: 98 T: 38 QT: 381 QTc: 437 Interpretive Statements SINUS RHYTHM Compared to ECG 06/04/2022 08:44:02 T-wave abnormality no longer present Electronically Signed On 09-08-2022 18:08:31 DOMESTIC MAID by Abhishek Perkins M.D. [id number]
[2022-09-08 15:12] VITALS: TEMP 36.8
--- NOTE | 2022-09-08 15:25 | XRR_ITS ---
PROCEDURE INFORMATION: Exam: XR Chest Exam date and time: 09/08/2022 3:46 PM Age: 62 years old Clinical indication: Cough and dyspnea and shortness of breath; Additional info: Dyspnea/cough TECHNIQUE: Imaging protocol: Radiologic exam of the chest. Views: 1 view. COMPARISON: CR (CHEST, ) 06/03/2022 7:03 PM FINDINGS: Lungs: Lung volumes are decreased, unchanged likely longstanding due to body habitus. Lung hayes are essentially clear for degree of aeration. Pleural spaces: Unremarkable. No pleural effusion. No pneumothorax. Heart/Mediastinum: Unremarkable. No cardiomegaly. Vasculature: There is tortuosity of the thoracoabdominal aorta, unchanged likely secondary to atherosclerotic changes. Bones/joints: There are healing rib fractures involving the lateral aspect of the left mid ribcage and advanced degenerative changes right shoulder joint. XR/XR chest 1V portable [id number] IMPRESSION: Stable chest. No active disease.
--- NOTE | 2022-09-08 15:50 | ED_ITS ---
HPI - SOB/Dyspnea General: Chief Complaint: Shortness of Breath/Dyspnea Stated Complaint: sob, anxiety Time Seen by Provider: 09/08/22 15:04 Source: patient Mode of arrival: EMS History of Present Illness: HPI Narrative: 62-year-old female presents to the emergency room anxious and mildly hyperventilating. She became very short of breath and got extremely upset triggered a panic attack per her words. She was arguing with her roommate she is adamant from the moment I walked in the room she does not want to go back to the same house her roommate is at. She denies any chest pain no fever sweats or chills recently. She has some left-sided facial droop which she tells me is from her previous stroke no new or recent change in symptoms. MD elicited complaint: shortness of breath Pertinent past history: COPD Onset (ago): minute(s) Timing: constant Severity: moderate Exacerbating factors: nothing Relieving factors: nothing Known history of: COPD Associated symptoms: Deny abdominal pain, chest congestion, chest pain, cough, diaphoresis, dizziness, extremity pain, fever(s), hemoptysis, lightheadedness, myalgias, nausea, orthopnea, palpitations, paresthesias, polydipsia, polyuria, rash, sense of impending doom, syncope or vomiting Treatment prior to arrival: none Review of Systems Const: Denies: fever(s), chills, fatigue, malaise or diaphoresis ENMT: Denies: throat pain, ear or mastoid pain, nasal discharge or nasal congestion Card: Denies: chest pain, palpitations, lightheadedness, syncope or orthopnea Resp: Denies: hemoptysis or chest congestion GI: Denies: abdominal pain, nausea or vomiting : Denies: flank pain, difficulty voiding, dysuria, urinary frequency or urinary urgency Musc: Denies: extremity pain Skin/Breast: Denies: rash or pruritus Neuro: Denies: dizziness Endo: Denies: polyuria or polydipsia [facility] PFSH: Medical History Altered mental status Amphetamine addiction Anxiety Aspiration of foreign body in respiratory tract Borderline personality disorder Cervical neuropathic pain Chronic idiopathic pain syndrome Chronic pain syndrome COPD (chronic obstructive pulmonary disease) COPD (chronic obstructive pulmonary disease) DDD (degenerative disc disease), cervical DJD (degenerative joint disease), lumbar GERD (gastroesophageal reflux disease) Hepatitis C, chronic History of intravenous drug abuse Interstitial lung disease Metabolic encephalopathy Opioid dependence, in remission Other stimulant dependence, in remission Partial small bowel obstruction Psychiatric care Pulmonary hypertension PVD (peripheral vascular disease) with claudication Respiratory failure with hypoxia Schizoaffective disorder, bipolar type Surgical History H/O tubal ligation Hx of BKA Hx of right BKA S/P cholecystectomy S/P tonsillectomy Family History Father Cancer lung Hypertension Diabetes Mother Hypertension Lung disease Diabetes Sister Diabetes Brother Diabetes Other CAD (coronary artery disease) Denies family history of Clotting disorder Dementia Hyperlipidemia Psychiatric illness Chronic kidney disease (CKD) Anesthesia complication Bleeding disorder Stroke Social History Smoking and tobacco status: current every day smoker (on chantix to help quit) cigarettes Years cigarettes smoked: 40 [ Other cigarette details: 1 pack per 6 days] Quit status (tobacco): has tried quititng Second hand smoke exposure: Yes Smoking risk assessment/counseling performed?: Yes Alcohol intake: former Counseling given: No Counseling given: No Lives independently: Yes Household members: none Marital status: Current occupational status: disabled History of recent travel: No Current gender identity: Female Female Reproductive History: Date of last menstrual period: 10/24/20 Spontaneous abortions: No Physical Exam Const: GENERAL APPEARANCE: cooperative and anxious ORIENTATION/CONSCIOUSN ESS: Yes awake, Yes oriented to person, Yes oriented to place and Yes oriented to time HENMT: COMMON NORMALS: normocephalic, atraumatic and hearing grossly normal bilaterally HEAD & SCALP: normocephalic and atraumatic OTHER: Mild left facial droop Resp: COMMON NORMALS: normal respiratory effort, No retractions and No use of accessory muscles EFFORT & INSPECTION: Yes tachypneic Cardio: COMMON NORMALS: regular rhythm and No murmurs present (Cardio) RATE: tachycardic RHYTHM: regular rhythm GI: COMMON NORMALS: Soft to palpation and No hepatosplenomegaly present AUSCULTATION: Yes normoactive bowel sounds PALPATION: Yes Soft to palpation, No Tenderness to palpation present (GI), No Guarding due to palpation present (GI) and Yes No hepatosplenomegaly present Extremity: COMMON NORMALS: normal to inspection, capillary refill normal, no clubbing, cyanosis or edema, no calf tenderness and no pedal edema Neuro: SENSORIUM/ORIENTATION: Yes oriented to person, Yes oriented to place and Yes oriented to time OTHER: Relatively equal strength in upper and lower extremities. Lab Technologist strength normal bilaterally Skin: COMMON NORMALS: no rashes or lesions noted GENERAL SKIN EXAM: no rashes or lesions noted Course Vital Signs: Vital signs: Vital Signs Temperature 98.3 F 09/08/22 15:12 Pulse Rate 104 H 09/08/22 17:51 Blood Pressure 158/112 09/08/22 17:51 Pulse Oximetry 93 09/08/22 17:51 MDM - SOB/Dyspnea Medical Decision Making Labs and imaging reviewed. Mild decrease in her CO2. Suspect she was hyperventilating she is feeling better will discharge home she got an Ativan here will discharge home with hydroxyzine use. Follow-up with her primary care Medical Records I reviewed the patient's medical records. Lab Data I reviewed the patient's lab results. 09/08/22 15:49 09/08/22 15:49 Labs/Radiology: Radiology Impressions Chest X-Ray 09/08/22 15:25 IMPRESSION: Stable chest. No active disease. Laboratory Results WBC 9.1 10^3/uL (4.0-10.0) 09/08/22 15:49 RBC 4.11 10^6/uL (4.1-5.3) 09/08/22 15:49 Hgb 11.9 g/dL (11.5-15.3) 09/08/22 15:49 Hct 37.3 % (37.0-47.0) 09/08/22 15:49 MCV 90.8 fl (81-99) 09/08/22 15:49 MCH 29.0 pg (28.0-34.0) 09/08/22 15:49 MCHC 31.9 g/dL (30.0-36.0) 09/08/22 15:49 RDW 13.6 % (12.1-15.1) 09/08/22 15:49 Plt Count 374 10^3/cmm (130-400) 09/08/22 15:49 MPV 8.7 fL (7.4-10.4) 09/08/22 15:49 Neut % (Auto) 68.0 % 09/08/22 15:49 Lymph % (Auto) 19.5 % 09/08/22 15:49 Rankin % (Auto) 9.5 % 09/08/22 15:49 Eos % (Auto) 2.1 % 09/08/22 15:49 Baso % (Auto) 0.4 % 09/08/22 15:49 Neut # (Auto) 6.21 10^3/uL (1.8-7.7) 09/08/22 15:49 Lymph # (Auto) 1.8 10^3/uL (0.8-4.8) 09/08/22 15:49 Rankin # (Auto) 0.9 10^3/uL (0.2-0.9) 09/08/22 15:49 Eos # (Auto) 0.2 10^3/uL (0.0-0.8) 09/08/22 15:49 Baso # (Auto) 0.0 10^3/uL (0.0-0.1) 09/08/22 15:49 Nucleated RBC % (auto) 0 % 09/08/22 15:49 Nucleated RBCs # 0.0 /100WBC 09/08/22 15:49 Specimen Type Arterial 09/08/22 16:23 Sample Site Brachial, right 09/08/22 16:23 ABG pH 7.43 (7.35-7.45) 09/08/22 16:23 ABG pCO2 34.9 mmHg (35-45) L 09/08/22 16:23 ABG pO2 75.9 mmHg (80.0-100.0) L 09/08/22 16:23 ABG HCO3 23.3 mmol/L (22-26) 09/08/22 16:23 ABG O2 Saturation 97.4 09/08/22 16: ABG Base Excess -0.6 mmol/L (-2.0-2.0) 09/08/22 16:23 Darryl Test N/a 09/08/22 16:23 A-a O2 Gradient 4.0 mmHg (5-10) L 09/08/22 16:23 Hematocrit 36.4 % (37-47) L 09/08/22 16:23 Hgb O2 Saturation 94.1 % (95-100) L 09/08/22 16:23 Carboxyhemoglobin 2.8 %THgb (0.4-20.1) 09/08/22 16:23 Methemoglobin 0.5 % (0.4-1.5) 09/08/22 16:23 Total Hemoglobin 11.9 g/dL (12-16) L 09/08/22 16:23 Sodium 139.0 mmol/L (131-143) 09/08/22 16:23 Potassium 3.7 mmol/L (3.5-5.0) 09/08/22 16:23 Glucose 108.0 mg/dL (70-115) 09/08/22 16:23 Ionized Calcium 1.2 mmol/L (1.1-1.4) 09/08/22 16:23 O2 Delivery Device Room air 09/08/22 16:23 FiO2 21.0 % 09/08/22 16:23 Senior Research Analyst ID [facility] 09/08/22 16:23 Sodium 139 mmol/L (136-145) 09/08/22 15:49 Potassium 4.2 mmol/L (3.5-5.1) 09/08/22 15:49 Chloride 101 mmol/L (98-107) 09/08/22 15:49 Carbon Dioxide 21 mmol/L (22-29) L 09/08/22 15:49 Anion Gap 21.2 (5-19) H 09/08/22 15:49 BUN 8 mg/dL (8-23) 09/08/22 15:49 Creatinine 0.4 mg/dL (0.5-0.9) L 09/08/22 15:49 GFR Calculation 162.8 mL/min (90-130) H 09/08/22 15:49 Glucose 104 mg/dL (65-115) 09/08/22 15:49 Calculated Osmolality 287 mOsm/kg (285-295) 09/08/22 15:49 Calcium 9.0 mg/dL (8.5-10.5) 09/08/22 15:49 Total Bilirubin 0.5 mg/dL (0.15-1.2) 09/08/22 15:49 AST 28 U/L (0-32) 09/08/22 15:49 ALT 20 U/L (0-33) 09/08/22 15:49 Alkaline Phosphatase 130 U/L (35-105) H 09/08/22 15:49 Total Protein 7.0 g/dL (6.6-8.7) 09/08/22 15:49 Albumin 4.0 g/dL (3.5-5.2) 09/08/22 15:49 Globulin 3.0 g/dL (1.3-4.6) 09/08/22 15:49 Discharge Plan Discharge Patient Disposition: Home Clinical Impression: Anxiety Condition: Stable Prescriptions: New hydroxyzine HCl 25 mg tablet 25 mg PO Q8H PRN (Reason: nausea and vomiting) Qty: 10 0RF No Action epinephrine [EpiPen 2-Reji] 0.3 mg/0.3 mL auto-injector 0.3 mg IM Q15M PRN (Reason: anaphylaxis) Qty: 2 0RF Rx Instructions: for 2 doses promethazine 12.5 mg tablet 12.5 mg PO DAILY PRN (Reason: nausea and vomiting) 30 Days Qty: 30 5RF albuterol sulfate 2.5 mg /3 mL (0.083 %) solution for nebulization 2.5 mg inhalation Q4H PRN (Reason: shortness of breath or wheezing) Qty: 180 5RF famotidine 20 mg tablet 20 mg PO BID 30 Days Qty: 60 5RF ibuprofen 800 mg tablet 800 mg PO BID PRN (Reason: pain) 30 Days Qty: 90 2RF Rx Instructions: WITH FOOD albuterol sulfate [Ventolin HFA] 90 mcg/actuation HFA aerosol inhaler 1 inh inhalation QID PRN (Reason: shortness of breath or wheezing) Qty: 8.5 4RF Anoro Ellipta 62.5-25 mcg/actuation blister with device 1 inh inhalation DAILY 30 Days Qty: 60 3RF bupropion HCl 150 mg tablet sustained-release 12 hr 150 mg PO BID Qty: 60 1RF fluoxetine 40 mg capsule 80 mg PO DAILY Qty: 60 1RF lamotrigine 100 mg tablet 150 mg PO QAM Qty: 45 1RF quetiapine 400 mg tablet 600 - 800 mg PO BEDTIME Rx Instructions: take 1 and 1/2 tablet to 2 tablets at bedtime. Discharge Orders: Discharge ED (Routine); Ordered 09/08/22 Ordered By: Jasen Galeano Referrals: Prasad Rebollar MD [Primary Care Provider] - Discharge Diet: Usual diet Discharge Activity: Resume usual activity Patient Instructions: Opioid Safety, Pain Management Activity Restrictions/Additional Instructions: You were seen today for shortness of breath your chest x-ray laboratory studies were normal your oxygen sats on room air are normal. Arterial blood gas showed evidence of mild hyperventilation. It appears most of your symptoms were from anxiety. You did not require oxygen. You are given Ativan in the emergency room and we discharged you with a prescription for hydroxyzine to use 1 every 8 hours as needed for anxiety follow-up with your primary care doctor. Coding Level of Care Code ED Freelance Art Director for Dorcas Oliver
[2022-09-08 15:57] LABS: Basophils % 0.4 %; Eosinophils # 0.2 10^3/uL (0.0-0.8); Eosinophils % 2.1 %; Hematocrit 37.3 % (37.0-47.0); Hemoglobin 11.9 g/dL (11.5-15.3); Lymphocytes # 1.8 10^3/uL (0.8-4.8); Lymphocytes % 19.5 %; Mean Corpuscular HGB Conc 31.9 g/dL (30.0-36.0); Mean Corpuscular Volume 90.8 fl (81-99); Mean Platelet Volume 8.7 fL (7.4-10.4); Monocytes # 0.9 10^3/uL (0.2-0.9); Monocytes % 9.5 %; Neutrophils # 6.21 10^3/uL (1.8-7.7); Nucleated Red Blood Cells % 0 %; Platelet Count 374 10^3/cmm (130-400); Red Blood Count 4.11 10^6/uL (4.1-5.3); Red Cell Distribution Width 13.6 % (12.1-15.1); White Blood Count 9.1 10^3/uL (4.0-10.0)
[2022-09-08 16:20] LABS: Alanine Aminotransferase 20 U/L (0-33); Alkaline Phosphatase 130 U/L (35-105); Anion Gap 21.2 (5-19); Aspartate Amino Transferase 28 U/L (0-32); Blood Urea Nitrogen 8 mg/dL (8-23); Carbon Dioxide 21 mmol/L (22-29); Chloride 101 mmol/L (98-107); Glomerular Filtration Rate 162.8 mL/min (90-130); Glucose 104 mg/dL (65-115); Osmolality Calculated 287 mOsm/kg (285-295); Potassium 4.2 mmol/L (3.5-5.1); Sodium 139 mmol/L (136-145); Total Bilirubin 0.5 mg/dL (0.15-1.2)
[2022-09-08 16:34] LABS: ABG PCO2 34.9 mmHg (35-45); ABG PH Result 7.43 (7.35-7.45); Arterial Blood Gas Hematocrit 36.4 % (37-47); Base Excess ABG -0.6 mmol/L (-2.0-2.0); Blood Gas Operator Identificat AMH; Blood Gas Sample Site Brachial, right; Blood Gas Sample Type Arterial; Carboxyhemoglobin 2.8 %THgb (0.4-20.1); HCO3 ABG 23.3 mmol/L (22-26); HGB O2 Sat 94.1 % (95-100); Ionized Calcium Level - ABG 1.2 mmol/L (1.1-1.4); Methemoglobin 0.5 % (0.4-1.5); Oxygen Device ROOM AIR; Oxygen Saturation ABG 97.4; PO2 ABG 75.9 mmHg (80.0-100.0); Potassium Level - ABG 3.7 mmol/L (3.5-5.0); Total Hemoglobin 11.9 g/dL (12-16)
[2022-09-08] MEDS: LORazepam 2 mg Tablet PO (17:38)
[2022-09-08 17:51] VITALS: BP 158/112; PULSE 104; O2SAT 93
== END 2022-09-08 17:55 | disposition home or self-care (01) ==
PROVIDERS: Emergency Provider Family Medicine; PCP Family Medicine
DX: F41.9 Anxiety disorder, unspecified (principal); F17.210 Nicotine dependence, cigarettes, uncomplicated; Z89.511 Acquired absence of right leg below knee; J44.9 Chronic obstructive pulmonary disease, unspecified; Z86.19 Personal history of other infectious and parasitic diseases
CPT/HCPCS: 36415; 36600; 71045; 80051; 80053; 82330; 82805; 85025; 93005; 99285

== ENCOUNTER 2022-09-10 12:55 | Emergency (ER) | payer MEDICAID, SELFPAY ==
[2022-09-10 13:13] VITALS: BP 114/85; PULSE 78; RESP 19; TEMP 36.7; O2SAT 98
[2022-09-10 13:24] LABS: Basophils % 0.3 %; Eosinophils # 0.1 10^3/uL (0.0-0.8); Hematocrit 38.9 % (37.0-47.0); Lymphocytes # 0.9 10^3/uL (0.8-4.8); Lymphocytes % 10.5 %; Mean Corpuscular HGB Conc 33.4 g/dL (30.0-36.0); Mean Corpuscular Hemoglobin 29.8 pg (28.0-34.0); Mean Corpuscular Volume 89.2 fl (81-99); Mean Platelet Volume 8.9 fL (7.4-10.4); Monocytes # 0.6 10^3/uL (0.2-0.9); Monocytes % 6.4 %; Neutrophils # 7.22 10^3/uL (1.8-7.7); Neutrophils % 81.3 %; Nucleated Red Blood Cells % 0 %; Platelet Count 449 10^3/cmm (130-400); Red Blood Count 4.36 10^6/uL (4.1-5.3); Red Cell Distribution Width 13.6 % (12.1-15.1); White Blood Count 8.9 10^3/uL (4.0-10.0)
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
[2022-09-10 13:47] LABS: Alanine Aminotransferase 22 U/L (0-33); Albumin Level 4.2 g/dL (3.5-5.2); Alkaline Phosphatase 124 U/L (35-105); Anion Gap 20.8 (5-19); Aspartate Amino Transferase 23 U/L (0-32); Blood Urea Nitrogen 5 mg/dL (8-23); Calcium 9.1 mg/dL (8.5-10.5); Carbon Dioxide 20 mmol/L (22-29); Chloride 100 mmol/L (98-107); Globulin 2.7 g/dL (1.3-4.6); Glomerular Filtration Rate 125.9 mL/min (90-130); Glucose 154 mg/dL (65-115); Osmolality Calculated 284 mOsm/kg (285-295); Potassium 3.8 mmol/L (3.5-5.1); Sodium 137 mmol/L (136-145); Total Bilirubin 0.5 mg/dL (0.15-1.2); Total Protein 6.9 g/dL (6.6-8.7)
== END 2022-09-10 13:45 | disposition home or self-care (01) ==
PROVIDERS: Emergency Provider Family Medicine; PCP Family Medicine
DX: T21.22XA Burn of second degree of abdominal wall, initial encounter (principal); X11.8XXA Contact with other hot tap-water, initial encounter; J44.9 Chronic obstructive pulmonary disease, unspecified; Z86.19 Personal history of other infectious and parasitic diseases; Z89.511 Acquired absence of right leg below knee; F17.210 Nicotine dependence, cigarettes, uncomplicated
CPT/HCPCS: 80053; 85025; 99283

== ENCOUNTER 2022-09-10 18:26 | Emergency (ER) | payer MEDICAID, SELFPAY ==
--- NOTE | 2022-09-10 19:03 | ECG_ITS ---
[facility] Test Date: 2022-09-10 Pat Name: Dalila Samuels Department: Room: Gender: Female Rhit: : 1960 Requested By: Odilon Trejo Order Number: [id number] Danae MD: Megan Todd M.D. Measurements Intervals [place] Rate: 71 P: 46 CA: 161 QRS: 7 QRSD: 98 T: 25 QT: 415 QTc: 454 Interpretive Statements SINUS RHYTHM Compared to ECG 09/08/2022 17:20:39 No significant changes Electronically Signed On 09-11-2022 7:51:38 [employer] PROFESSION[employer] by Megan Todd M.D. [email or web address]
--- NOTE | 2022-09-10 19:04 | XRR_ITS ---
PROCEDURE INFORMATION: Exam: XR Chest Exam date and time: 09/10/2022 7:09 PM Age: 62 years old Clinical indication: Pain; Chest pressure; Additional info: SOB, cp, today, PT was in ED earlier today with same complaints TECHNIQUE: Imaging protocol: Radiologic exam of the chest. Views: 1 view. COMPARISON: CR XR chest 1V portable [id number] 09/08/2022 3:46 PM FINDINGS: Lungs: Lungs are clear bilaterally. Pleural spaces: No pleural effusion. No pneumothorax. Heart/Mediastinum: Stable mild enlargement of the cardiac silhouette. Mediastinal contours are unremarkable. Vasculature: Stable vascular calcifications in the aorta. Bones/joints: Unremarkable for age. XR/XR chest 1V portable [id number] IMPRESSION: 1. No acute cardiopulmonary process. 2. Incidental/nonacute findings are listed in the report.
[2022-09-10 20:32] LABS: Basophils % 0.2 %; Eosinophils # 0.1 10^3/uL (0.0-0.8); Eosinophils % 1.7 %; Hematocrit 39.4 % (37.0-47.0); Hemoglobin 13.1 g/dL (11.5-15.3); Lymphocytes # 1.1 10^3/uL (0.8-4.8); Lymphocytes % 12.9 %; Mean Corpuscular HGB Conc 33.2 g/dL (30.0-36.0); Mean Corpuscular Hemoglobin 29.5 pg (28.0-34.0); Mean Corpuscular Volume 88.7 fl (81-99); Mean Platelet Volume 8.6 fL (7.4-10.4); Monocytes # 0.8 10^3/uL (0.2-0.9); Monocytes % 9.7 %; Neutrophils # 6.33 10^3/uL (1.8-7.7); Neutrophils % 74.8 %; Nucleated Red Blood Cells % 0 %; Platelet Count 427 10^3/cmm (130-400); Red Blood Count 4.44 10^6/uL (4.1-5.3); Red Cell Distribution Width 13.5 % (12.1-15.1); White Blood Count 8.5 10^3/uL (4.0-10.0)
[2022-09-10 20:35] VITALS: BP 147/96; PULSE 77; RESP 18; TEMP 36.4; O2SAT 99; BMI 33.4
[2022-09-10 21:02] LABS: Alanine Aminotransferase 23 U/L (0-33); Albumin Level 4.1 g/dL (3.5-5.2); Alkaline Phosphatase 120 U/L (35-105); Aspartate Amino Transferase 25 U/L (0-32); Blood Urea Nitrogen 6 mg/dL (8-23); Calcium 9.2 mg/dL (8.5-10.5); Carbon Dioxide 20 mmol/L (22-29); Chloride 100 mmol/L (98-107); Globulin 3.1 g/dL (1.3-4.6); Glomerular Filtration Rate 162.8 mL/min (90-130); Glucose 100 mg/dL (65-115); NT Pro B Type Natriuretic Pept 526 pg/mL (0-125); Osmolality Calculated 282 mOsm/kg (285-295); Sodium 137 mmol/L (136-145); Total Bilirubin 0.5 mg/dL (0.15-1.2); Total Protein 7.2 g/dL (6.6-8.7)
[2022-09-10 21:03] LABS: Anion Gap 20.8 (5-19); Potassium 3.8 mmol/L (3.5-5.1)
[2022-09-10 21:14] LABS: Lipase 18 U/L (13-60)
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
[2022-09-10 21:38] VITALS: BP 158/94; PULSE 80; RESP 16; O2SAT 97
[2022-09-10] MEDS: HYDROcodone-acetaminophen 5-325 mg Tablet 1 TAB PO (21:44)
== END 2022-09-10 22:57 | disposition home or self-care (01) ==
PROVIDERS: Emergency Provider Emergency Medicine; PCP Family Medicine
DX: T21.22XA Burn of second degree of abdominal wall, initial encounter (principal); X08.8XXA Exposure to other specified smoke, fire and flames, initial encounter; F17.210 Nicotine dependence, cigarettes, uncomplicated; Z89.511 Acquired absence of right leg below knee; J44.9 Chronic obstructive pulmonary disease, unspecified; Z86.19 Personal history of other infectious and parasitic diseases
CPT/HCPCS: 36415; 71045; 80053; 83690; 83880; 85025; 93005; 99285

== ENCOUNTER 2022-09-30 17:41 | Inpatient (IN) | payer MEDICAID, SELFPAY ==
[2022-09-30] VITALS (46 sets, daily range): BP systolic 78–125; BP diastolic 50–94; PULSE 83–115; RESP 14–25; TEMP 34.7–34.8; O2SAT 81–100; BMI 33.5
--- NOTE | 2022-09-30 17:36 | ED_ITS ---
HPI - Altered Mental Status General: Chief Complaint: Overdose Stated Complaint: Overdose Limitations: altered mental status History of Present Illness: Ms Samuels is a 62-year-old lady with psychiatric history presenting to the emergency department due to altered mental status with reported overdose. At approximately 1610 today she took 50 x 400 mg tablets of Seroquel and 17 x 40 mg tablets of Prozac in a suicide attempt. Upon EMS arrival patient initially alert to verbal stimuli however progressively deteriorated to only being alert painful stimuli. Patient herself for me provides no meaningful clinical history. Review of Systems General: Reports: ROS unobtainable due to mental status PFSH ED PFSH: Medical History Altered mental status Amphetamine addiction Anxiety Aspiration of foreign body in respiratory tract Borderline personality disorder Cervical neuropathic pain Chronic idiopathic pain syndrome Chronic pain syndrome COPD (chronic obstructive pulmonary disease) COPD (chronic obstructive pulmonary disease) DDD (degenerative disc disease), cervical DJD (degenerative joint disease), lumbar GERD (gastroesophageal reflux disease) Hepatitis C, chronic History of intravenous drug abuse Interstitial lung disease Metabolic encephalopathy Opioid dependence, in remission Other stimulant dependence, in remission Partial small bowel obstruction Psychiatric care Pulmonary hypertension PVD (peripheral vascular disease) with claudication Respiratory failure with hypoxia Schizoaffective disorder, bipolar type Surgical History H/O tubal ligation Hx of BKA Hx of right BKA S/P cholecystectomy S/P tonsillectomy Family History Father Cancer lung Hypertension Diabetes Mother Hypertension Lung disease Diabetes Sister Diabetes Brother Diabetes Other CAD (coronary artery disease) Denies family history of Clotting disorder Dementia Hyperlipidemia Psychiatric illness Chronic kidney disease (CKD) Anesthesia complication Bleeding disorder Stroke Social History Smoking and tobacco status: current every day smoker (on chantix to help quit) cigarettes Years cigarettes smoked: 40 [ Other cigarette details: 1 pack per 6 days] Quit status (tobacco): has tried quititng Second hand smoke exposure: Yes Smoking risk assessment/counseling performed?: Yes Alcohol intake: former Counseling given: No Counseling given: No Lives independently: Yes Household members: none Marital status: Current occupational status: disabled Current gender identity: Female Female Reproductive History: Spontaneous abortions: No Physical Exam Const: COMMON NORMALS: alert GENERAL APPEARANCE: cooperative and well developed HENMT: COMMON NORMALS: normocephalic and atraumatic HEAD & SCALP: normocephalic and atraumatic THROAT: posterior oropharynx normal Eye: COMMON NORMALS: conjunctivae normal CONJUNCTIVA: Yes conjunctivae normal SCLERA: sclerae normal Neck/C-Spine: COMMON NORMALS: supple GENERAL: Yes trachea midline Resp: EFFORT & INSPECTION: Yes decreased respiratory effort AUSCULTATION: diminished lung sounds Cardio: COMMON NORMALS: regular rhythm RATE: tachycardic RHYTHM: regular rhythm GI: COMMON NORMALS: Soft to palpation PALPATION: Yes Soft to palpation and No Tenderness to palpation present (GI) Extremity: GENERAL: Yes normal exam except as noted and No edema Neuro: COMMON NORMALS: moves all extremities SENSORIUM/ORIENTATION: Yes alert, Yes Orientation impaired and Yes obtunded Psych: ATTENTION/CONCENTRATION: Yes attention grossly impaired MEMORY/COGNITION: Yes cognition grossly impaired Procedures Intubation Time out performed: Yes sedative: Etomidate Mg Given: 30 paralytic: Vecuronium Mg Given: 10 Laryngoscope: fiber optic video scope ET Tube Size: 8 Tube Secured Depth (cm): 21 Tube Secured Location: lips Tube Placement Confirmation: visualized tube passing through cords, equal breath sounds bilaterally, no breath sounds over epigastrium and confirmation by capnometry Patient Tolerated Procedure: well and no complications Course Vital Signs: Vital signs: Vital Signs Temperature 98.1 F 10/08/22 14:23 Pulse Rate 73 10/08/22 14:23 Respiratory Rate 15 10/08/22 14:23 Blood Pressure 152/54 10/08/22 14:23 Pulse Oximetry 91 10/08/22 14:23 Oxygen Delivery Ut thod 10/08/22 06:00 Oxygen Flow Rate 0 10/08/22 08:00 Fraction of Inspir ed Oxygen 30 10/02/22 11:03 MDM - Altered Mental Status Medical Decision Making 62-year-old female presenting due to intentional drug overdose for suicide attempt. Patient has had decline in mental status even during EMS care relatively close to ingestion time and has quite a significantly decreased level of consciousness. Initial EKG demonstrates no STEMI Given severity of mental status decrease with expected worsening given reported ingestion patient requires intubation for critical care management and airway protection. Additionally, despite adequate respiratory rate, patient mildly hypoxemic on room air. She was preoxygenated adequately and intubated without complication. Etomidate and vecuronium used. Chest x-ray reviewed with satisfactory ET tube placement. Labs with no significant hematologic abnormality, metabolic panel with mildly decreased bicarb and anion gap is overall similar to prior if not mildly improved. There is a new transaminitis of uncertain etiology. Urinalysis is negative. Toxic ingestions are negative. UDS positive for benzodiazepines. Repeat EKG demonstrates QTc prolongation. Magnesium ordered for empiric treat ment. IV fluids given for mild hypotension with satisfactory response, sedation with fentanyl and propofol. 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 Discussed with poison control. Discussed with hospitalist service who was agreeable to admit patient. Medical Records I reviewed the patient's medical records. Lab Data I reviewed the patient's lab results. 09/30/22 17:45 09/30/22 17:45 Radiology Impressions Chest X-Ray 09/30/22 17:36 IMPRESSION: Mild patient rotation. Endotracheal catheter appears in good position approximately 2.5 cm above the level of the parag. Mild increased markings perihilar region and ill-defined opacity or infiltrate lower right lung. Findings likely represent pneumonia, though some component of pulmonary vascular congestion or edema not excluded. Correlate clinically. Abdomen X-Ray 09/30/22 18:18 IMPRESSION: An enteric tube is noted with the distal tip below the level of the diaphragm in the region of the stomach. Head CT 09/30/22 18:22 IMPRESSION: Stable appearance with prior exam June 04, 2022 as noted above, without acute intracranial abnormality. Laboratory Results WBC 9.5 10^3/uL (4.0-10.0) 09/30/22 17:45 RBC 4.08 10^6/uL (4.1-5.3) L 09/30/22 17:45 Hgb 11.8 g/dL (11.5-15.3) 09/30/22 17:45 Hct 37.1 % (37.0-47.0) 09/30/22 17:45 MCV 90.9 fl (81-99) 09/30/22 17:45 MCH 28.9 pg (28.0-34.0) 09/30/22 17:45 MCHC 31.8 g/dL (30.0-36.0) 09/30/22 17:45 RDW 14.2 % (12.1-15.1) 09/30/22 17:45 Plt Count 255 10^3/cmm (130-400) 09/30/22 17:45 MPV 8.6 fL (7.4-10.4) 09/30/22 17:45 Neut % (Auto) 27.5 % 09/30/22 17:45 Lymph % (Auto) 62.5 % 09/30/22 17:45 Will % (Auto) 6.4 % 09/30/22 17:45 Eos % (Auto) 2.5 % 09/30/22 17:45 Baso % (Auto) 0.5 % 09/30/22 17:45 Neut # (Auto) 2.62 10^3/uL (1.8-7.7) 09/30/22 17:45 Lymph # (Auto) 6.0 10^3/uL (0.8-4.8) H 09/30/22 17:45 Will # (Auto) 0.6 10^3/uL (0.2-0.9) 09/30/22 17:45 Eos # (Auto) 0.2 10^3/uL (0.0-0.8) 09/30/22 17:45 Baso # (Auto) 0.1 10^3/uL (0.0-0.1) 09/30/22 17:45 Nucleated RBC % (auto) 0 % 09/30/22 17:45 Nucleated RBCs # 0.0 /100WBC 09/30/22 17:45 Specimen Type Arterial 09/30/22 17:54 Sample Site Radial, left 09/30/22 17:54 ABG pH 7.36 (7.35-7.45) 09/30/22 17:54 ABG pCO2 45.9 mmHg (35-45) H 09/30/22 17:54 ABG pO2 104.0 mmHg (80.0-100.0) H 09/30/22 17:54 ABG HCO3 25.6 mmol/L (22-26) 09/30/22 17:54 ABG O2 Saturation 98.3 09/30/22 17:54 ABG Base Excess -0.2 mmol/L (-2.0-2.0) 09/30/22 17:54 Darryl Test Pos 09/30/22 17:54 A-a O2 Gradient 34.2 mmHg (5-10) H 09/30/22 17:54 Hematocrit 36.5 % (37-47) L 09/30/22 17:54 Hgb O2 Saturation 95.2 % (95-100) 09/30/22 17:54 Carboxyhemoglobin 2.8 %THgb (0.4-20.1) 09/30/22 17:54 Methemoglobin 0.3 % (0.4-1.5) L 09/30/22 17:54 Total Hemoglobin 11.9 g/dL (12-16) L 09/30/22 17:54 Sodium 139.0 mmol/L (131-143) 09/30/22 17:54 Potassium 3.6 mmol/L (3.5-5.0) 09/30/22 17:54 Glucose 113.0 mg/dL (70-115) 09/30/22 17:54 Ionized Calcium 1.2 mmol/L (1.1-1.4) 09/30/22 17:54 O2 Delivery Device Vent 09/30/22 17:54 FiO2 60.0 % 09/30/22 17:54 Tidal Volume 0.45 09/30/22 17:54 PEEP 5.0 cmH20 09/30/22 17:54 Brine Tank Operator ID [place] 09/30/22 17:54 Sodium 139 mmol/L (136-145) 09/30/22 17:45 Potassium 4.1 mmol/L (3.5-5.1) 09/30/22 17:45 Chloride 103 mmol/L (98-107) 09/30/22 17:45 Carbon Dioxide 21 mmol/L (22-29) L 09/30/22 17:45 Anion Gap 19.1 (5-19) H 09/30/22 17:45 BUN 8 mg/dL (8-23) 09/30/22 17:45 Creatinine 0.5 mg/dL (0.5-0.9) 09/30/22 17:45 GFR Calculation 125.9 mL/min (90-130) 09/30/22 17:45 Glucose 111 mg/dL (65-115) 09/30/22 17:45 Calculated Osmolality 287 mOsm/kg (285-295) 09/30/22 17:45 Calcium 8.6 mg/dL (8.5-10.5) 09/30/22 17:45 Magnesium 1.9 mg/dL (1.7-2.3) 09/30/22 17:45 Total Bilirubin 0.3 mg/dL (0.15-1.2) 09/30/22 17:45 AST 42 U/L (0-32) H 09/30/22 17:45 ALT 47 U/L (0-33) H 09/30/22 17:45 Alkaline Phosphatase 227 U/L (35-105) H 09/30/22 17:45 Troponin T Baseline 9 ng/L (0-10) 09/30/22 17:45 Total Protein 6.0 g/dL (6.6-8.7) L 09/30/22 17:45 Albumin 3.6 g/dL (3.5-5.2) 09/30/22 17:45 Globulin 2.4 g/dL (1.3-4.6) 09/30/22 17:45 TSH 2.94 uIU/mL (0.27-4.20) 09/30/22 17:45 Urine Color Yellow (Yellow) 09/30/22 18:04 Urine Appearance Clear (CLEAR) 09/30/22 18:04 Urine pH 6 (5-7) 09/30/22 18:04 Ur Specific [place] 1.020 (1.005-1.030) 09/30/22 18:04 Urine Protein Trace (Negative) 09/30/22 18:04 Urine Glucose (UA) Norm (Normal) 09/30/22 18:04 Urine Ketones Negative (Negative) 09/30/22 18:04 Urine Blood Neg (Negative) 09/30/22 18:04 Urine Nitrate Negative (Negative) 09/30/22 18:04 Urine Bilirubin Neg (Negative) 09/30/22 18:04 Urine Urobilinogen Norm mg/dL (Negative) 09/30/22 18:04 Ur Leukocyte Esterase Negative (Negative) 09/30/22 18:04 Urine RBC 0-4 /hpf (0-2) H 09/30/22 18:04 Urine WBC 0-4 /hpf (0-5) H 09/30/22 18:04 Ur Squamous Epith Cells 0-4 /hpf (0-5) H 09/30/22 18:04 Amorphous Sediment Not Reportable 09/30/22 18:04 Urine Bacteria Trace /hpf (NONE) 09/30/22 18:04 Salicylates < 0.3 mg/dL (3-10) L 09/30/22 17:45 Urine Opiates Screen Negative ng/mL (Negative) 09/30/22 18:04 Acetaminophen < 5.0 ug/mL (10-30) L 09/30/22 17:45 Ur Barbiturates Screen Negative ng/mL (Negative) 09/30/22 18:04 Ur Phencyclidine Scrn Negative ng/mL (Negative) 09/30/22 18:04 Ur Amphetamines Screen Negative ng/mL (Negative) 09/30/22 18:04 U Benzodiazepines Scrn Positive ng/mL (Negative) H 09/30/22 18:04 Urine Cocaine Screen Negative ng/mL (Negative) 09/30/22 18:04 U Marijuana (THC) Screen Negative ng/mL (Negative) 09/30/22 18:04 Ethyl Alcohol < 10 mg/dL (0-10) 09/30/22 17:45 Critical Care Time Critical Care Time: Critical Care Time: Yes Total Critical Care Time: 45 Attestation: Due to a high probability of clinically significant, possibly life threatening deterioration, the patient required my highest level of attention and preparedness to intervene emergently and I personally spent this critical care time directly and personally managing the patient. This critical care time included obtaining a history; examining the patient; pulse oximetry; ordering and review of laboratory and imaging studies; arranging urgent treatment with development of a management plan; evaluation of patient's response to treatment; frequent reassessment; and, discussions with other providers as applicable. It was exclusive of separately billable procedures. Primary system involved is tox/[employer]IC Discharge Plan Discharge Patient Disposition: Admitted As Inpatient Admit Provider: Alpehs Tony Clinical Impression: Suicide attempt by multiple drug overdose, Acute respiratory failure with hypoxia, Acute alteration in mental status, Prolonged Q-T interval on ECG Condition: Stable Discharge Diet: As Directed Discharge Activity: Resume usual activity Coding Level of Care Code ED Division Operations Manager for Dorcas Oliver
--- NOTE | 2022-09-30 17:36 | XRR_ITS ---
PROCEDURE INFORMATION: Exam: XR Chest Exam date and time: 09/30/2022 5:48 PM Age: 62 years old Clinical indication: Pain; Other: Od; Additional info: AMS. Od TECHNIQUE: Imaging protocol: Radiologic exam of the chest. Views: 1 view. COMPARISON: CR (CHEST, ) 09/10/2022 7:09 PM FINDINGS: Tubes, catheters and devices: Endotracheal catheter is seen, appearing in good position approximally 2.5 cm above the level of the parag. Lungs: Ill-defined opacity or infiltrate is seen within the lower right lung. Mild increased markings perihilar region. Pleural spaces: No significant pleural effusion. No pneumothorax. Heart/Mediastinum: Cardiac silhouette is mildly prominent. Bones/joints: Several old rib fractures noted. Other findings: There is some patient rotation with the exam. XR/XR chest 1V portable [id number] IMPRESSION: Mild patient rotation. Endotracheal catheter appears in good position approximately 2.5 cm above the level of the parag. Mild increased markings perihilar region and ill-defined opacity or infiltrate lower right lung. Findings likely represent pneumonia, though some component of pulmonary vascular congestion or edema not excluded. Correlate clinically.
--- NOTE | 2022-09-30 17:45 | ECG_ITS ---
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 Measurements Intervals [place] Rate: P: 0 MA: 0 QRS: 0 QRSD: 0 T: 0 QT: 0 QTc: 0 Interpretive Statements SINUS TACYCARDIA Compared to ECG 09/10/2022 20:41:56 Sinus rhythm no longer present Electronically Signed On 10-01-2022 18:07:33 EMERGENCY REGISTRAR by Abhishek Perkins M.D. [email or web address] medical centerSuper [email or web address]/[id number] f
[2022-09-30] MEDS: etomidate 2 mg/mL INJ SDV 10 mL 30 MG IVP (17:46)
[2022-09-30] MEDS: vecuronium 10 mg SDV IVP (17:46)
--- NOTE | 2022-09-30 17:48 | PC.NURSE ---
Patient became intubated at 1747 @ 22 lip. Patient received Etomidate 30mg and Vecuronium 10mg, both @ 1746
[2022-09-30 17:59] LABS: Basophils # 0.1 10^3/uL (0.0-0.1); Basophils % 0.5 %; Eosinophils # 0.2 10^3/uL (0.0-0.8); Eosinophils % 2.5 %; Hematocrit 37.1 % (37.0-47.0); Hemoglobin 11.8 g/dL (11.5-15.3); Lymphocytes % 62.5 %; Mean Corpuscular HGB Conc 31.8 g/dL (30.0-36.0); Mean Corpuscular Hemoglobin 28.9 pg (28.0-34.0); Mean Corpuscular Volume 90.9 fl (81-99); Mean Platelet Volume 8.6 fL (7.4-10.4); Monocytes # 0.6 10^3/uL (0.2-0.9); Monocytes % 6.4 %; Neutrophils # 2.62 10^3/uL (1.8-7.7); Neutrophils % 27.5 %; Nucleated Red Blood Cells % 0 %; Platelet Count 255 10^3/cmm (130-400); Red Blood Count 4.08 10^6/uL (4.1-5.3); Red Cell Distribution Width 14.2 % (12.1-15.1); White Blood Count 9.5 10^3/uL (4.0-10.0)
[2022-09-30 18:08] LABS: ABG PCO2 45.9 mmHg (35-45); ABG PH Result 7.36 (7.35-7.45); Arterial Blood Gas Hematocrit 36.5 % (37-47); Base Excess ABG -0.2 mmol/L (-2.0-2.0); Blood Gas Allen Test Pos; Blood Gas Operator Identificat MONRO; Blood Gas Sample Site Radial, left; Blood Gas Sample Type Arterial; Carboxyhemoglobin 2.8 %THgb (0.4-20.1); HCO3 ABG 25.6 mmol/L (22-26); HGB O2 Sat 95.2 % (95-100); Ionized Calcium Level - ABG 1.2 mmol/L (1.1-1.4); Methemoglobin 0.3 % (0.4-1.5); Oxygen Device VENT; Oxygen Saturation ABG 98.3; Potassium Level - ABG 3.6 mmol/L (3.5-5.0); Total Hemoglobin 11.9 g/dL (12-16)
[2022-09-30 18:09] LABS: Alveolar-Arterial Oxygen Gradi 34.2 mmHg (5-10); Blood Gas Tidal Volume 0.45
--- NOTE | 2022-09-30 18:18 | XRR_ITS ---
PROCEDURE INFORMATION: Exam: XR Abdomen Exam date and time: 09/30/2022 6:27 PM Age: 62 years old Clinical indication: Device placement; Gi device; Nasogastric tube; Additional info: Ng placement TECHNIQUE: Imaging protocol: Radiologic exam of the abdomen. Views: Frontal supine view of the abdomen. 1 View. COMPARISON: CT abdomen pelvis con [id number] 06/04/2022 10:51 AM FINDINGS: Tubes, catheters and devices: An enteric tube is noted with the distal tip below the level of the diaphragm in the region of the stomach. Gastrointestinal tract: No air-filled bowel loops identified in the partially visualized abdomen. Intraperitoneal space: Surgical clips in the right upper quadrant noted. Bones/joints: Multilevel degenerative changes in the spine. XR/XR abdomen 1V* [id number] IMPRESSION: An enteric tube is noted with the distal tip below the level of the diaphragm in the region of the stomach.
[2022-09-30 18:19] LABS: Troponin(5th) Baseline 9 ng/L (0-10)
--- NOTE | 2022-09-30 18:22 | CTR_ITS ---
PROCEDURE INFORMATION: Exam: CT Head Without Contrast Exam date and time: 09/30/2022 9:16 PM Age: 62 years old Clinical indication: Altered mental status/memory loss; Additional info: AMS TECHNIQUE: Imaging protocol: Computed tomography of the head without contrast. Radiation optimization: All CT scans at this facility use at least one of these dose optimization techniques: automated exposure control; mA and/or kV adjustment per patient size (includes targeted exams where dose is matched to clinical indication); or iterative reconstruction. REPORTING DATA: Count of CT and Cardiac NM exams in prior 12 months: This patient has received 3 known CTs and 0 known cardiac nuclear medicine studies in the 12 months prior to the current study. COMPARISON: CT head wo con* [id number] 06/04/2022 10:49 AM RADIATION DOSE METRICS: Total DLP (mGy-cm): 1025.48 FINDINGS: Brain: Mild atrophic or involutional change, along mild periventricular chronic small-vessel disease change, as noted with prior exam. Very small focus of subtle hyperdensity within the left temporal lobe is unchanged with prior exam, and slightly more so in appearance than prior exam. 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 No intracranial hemorrhage or hematoma is seen. No mass effect or shift of midline structures. No findings to indicate large vessel ischemic change or infarct or other acute focal findings. Cerebral ventricles: No significant ventriculomegaly. Paranasal sinuses: Small amount of paranasal mucosal sinus disease. Mastoid air cells: Visualized mastoid air cells are well aerated. Bones/joints: Unremarkable. No acute fracture. Soft tissues: Unremarkable. CT/CT head wo con* [id number] IMPRESSION: Stable appearance with prior exam June 04, 2022 as noted above, without acute intracranial abnormality.
[2022-09-30 18:28] LABS: Alanine Aminotransferase 47 U/L (0-33); Albumin Level 3.6 g/dL (3.5-5.2); Alkaline Phosphatase 227 U/L (35-105); Aspartate Amino Transferase 42 U/L (0-32); Blood Urea Nitrogen 8 mg/dL (8-23); Calcium 8.6 mg/dL (8.5-10.5); Carbon Dioxide 21 mmol/L (22-29); Chloride 103 mmol/L (98-107); Globulin 2.4 g/dL (1.3-4.6); Glomerular Filtration Rate 125.9 mL/min (90-130); Glucose 111 mg/dL (65-115); Osmolality Calculated 287 mOsm/kg (285-295); Sodium 139 mmol/L (136-145); Thyroid Stimulating Hormone 2.94 uIU/mL (0.27-4.20); Total Bilirubin 0.3 mg/dL (0.15-1.2)
[2022-09-30 18:29] LABS: Acetaminophen < 5.0 ug/mL (10-30); Alcohol Level < 10 mg/dL (0-10); Salicylate < 0.3 mg/dL (3-10)
[2022-09-30 18:30] LABS: Anion Gap 19.1 (5-19); Potassium 4.1 mmol/L (3.5-5.1)
[2022-09-30 18:39] LABS: Slide Review Slide Review Perform
[2022-09-30] MEDS: sodium chloride 0.9% 1,000 ML 999 ML IV (18:42)
--- NOTE | 2022-09-30 19:12 | PC.NURSE ---
PT ARRIVED TO ED AFTER INTENTIONAL OVERDOSE TAKING 20,000MG OF SEROQUEL AND 17 40MG PROZAC. PT GIVEN 30MG OF ETOMIDATE AT 1746 AND [address] MANJARREZ PLACED TUBE. 22 AT THE LIP. LUNG SOUNDS AUSCULTATED AND XRAY USED TO VERIFY PLACEMENT
[2022-09-30 19:19] LABS: Amphetamines Screen Urine Negative (Negative); Barbiturates Screen Urine Negative (Negative); Benzodiazepines Screen Urine Positive (Negative); Cocaine Screen Urine Negative (Negative); Opiate Screen Urine Negative (Negative); PCP Screen Urine Negative (Negative); THC Screen Urine Negative (Negative)
[2022-09-30 19:26] LABS: Magnesium 1.9 mg/dL (1.7-2.3)
[2022-09-30 19:33] LABS: Add Urine Microscopic? YES; Bilirubin Urine Neg (Negative); Blood Urine Neg (Negative); Glucose Urine UA Norm (Normal); Ketones Urine Negative (Negative); Leukocyte Esterase Urine Negative (Negative); Nitrate Urine Negative (Negative); Protein Urine Trace (Negative); Urine Appearance Clear (CLEAR); Urine Color Yellow (Yellow); Urobilinogen Urine Norm (Negative); pH Urine 6 (5-7)
[2022-09-30 19:34] LABS: Add Urine Culture? No; Bacteria Urine TRACE /hpf; RBC Urine 0-4 /hpf (0-2); Squamous Epithelial Cell Urine 0-4 /hpf (0-5); WBC Urine 0-4 /hpf (0-5)
--- NOTE | 2022-09-30 19:36 | ECG_ITS ---
[facility] Test Date: 2022-09-30 Pat Name: Dalila Samuels Department: Room: Gender: Female Director Airport: : 1960 Requested By: Philip Miguel Order Number: [id number] Danae MD: Abhishek Perkins M.D. Measurements Intervals [place] Rate: 99 P: 51 UT: 177 QRS: 15 QRSD: 125 T: 44 QT: 414 QTc: 532 Interpretive Statements SINUS RHYTHM POSSIBLE LATERAL MYOCARDIAL INFARCTION , PROBABLY OLD [30 ms Q WAVE IN I/aVL/V5/V6] Compared to ECG 09/30/2022 17:45:22 Myocardial infarct finding now present Electronically Signed On 10-01-2022 18:13:32 RELATIONS MANAGER by Abhishek Perkins M.D. [id number]
--- NOTE | 2022-09-30 19:59 | PM.HP ---
Providers/Chief Complaint Primary Care Provider: Prasad Rebollar MD Chief Complaint: Overdose History of Present Illness Dalila Samuels is a 62 year old female with PMH of SAD/BPD , on multiple psych medication,COPD, pulmonary hypertension, peripheral vascular disease, history of BKA,was brought in from home for the management intentional drug overdose, and suicide attempt , she overdosed herself with 400 mg tablets of Seroquel and 17 x 40 mg tablets of Prozac, initially when she was brought into the ER she was responding to verbal stimuli, but later due to progressive deterioration in the mentation, and her inability to protect airways, she had to be intubated and placed on mechanical ventilation. CT head without contrast had shown no acute: Intracranial pathology: X-ray chest: Mild increased markings perihilar region and ill-defined opacity or infiltrate lower right lung. Concerning for pneumonia. EKG: SR, QRSD:125, QTc:532 Pertinent labs: WBC 9.5, H&H 11 and 37,PLT : 255 , serum sodium 139 serum potassium 4.1, BUN: 8, SCR : 0.5 , RBS : 111 ABG: pH 7.36, PCO2 45, PO2 104, FIO2: 60% Review of Systems General: Reports: ROS unobtainable due to endotracheal tube Medications/Allergies Home Medications Medication Instructions Recorded Confirmed Last Taken Type albuterol sulfate 2.5 mg/3 mL 2.5 mg (3 mL) inhalation Q4H PRN 01/06/22 09/30/22 Unknown Rx (0.083 %) solution for nebulization shortness of breath or wheezing #180 mL albuterol sulfate 90 mcg/actuation 1 inh inhalation QID PRN shortness 07/20/22 09/30/22 Unknown Rx aerosol inhaler (Ventolin HFA) of breath or wheezing #8.5 grams ibuprofen 800 mg tablet 800 mg PO BID PRN pain 30 days #90 07/20/22 09/30/22 Unknown Rx tabs umeclidinium 62.5 mcg-vilanterol 1 inh inhalation DAILY 30 days #60 07/20/22 09/30/22 09/08/22 Rx 25 mcg/actuation powdr for ea inhalation (Anoro Ellipta) epinephrine 0.3 mg/0.3 mL 0.3 mg (0.3 mL) IM Q15M PRN 08/05/22 09/14/22 Unknown Rx injection, auto-injector (EpiPen anaphylaxis #2 ea 2-Reji) hydroxyzine HCl 25 mg tablet 25 mg PO Q8H PRN nausea and 09/08/22 09/14/22 Unknown Rx vomiting #10 tabs gentamicin 0.1 % topical ointment 1 applic topical TID #30 grams 09/10/22 09/30/22 Unknown Rx naproxen 500 mg tablet (Naprosyn) 500 mg PO BID PRN pain #20 tabs 09/10/22 09/14/22 Unknown Rx gabapentin 300 mg capsule 300 mg PO TID 30 days #90 caps 09/14/22 09/30/22 Unknown Rx omeprazole 40 mg capsule,delayed 40 mg PO DAILY #30 caps 09/14/22 09/30/22 Unknown Rx release promethazine 12.5 mg tablet 12.5 mg PO DAILY PRN nausea and 09/14/22 09/30/22 Unknown Rx vomiting 30 days #30 tabs bupropion HCl 150 mg tablet,12 hr 150 mg PO BID #60 tabs 09/25/22 09/30/22 Unknown Rx sustained-release fluoxetine 40 mg capsule 80 mg PO DAILY #60 caps 09/25/22 09/30/22 Unknown Rx lamotrigine 100 mg tablet 150 mg PO QAM #45 tabs 09/25/22 09/30/22 Unknown Rx quetiapine 400 mg tablet 600 - 800 mg PO BEDTIME #60 tabs 09/25/22 09/30/22 Unknown Rx benzonatate 200 mg capsule 200 mg PO BID PRN Cough 09/30/22 09/30/22 Unknown History meloxicam 7.5 mg tablet 7.5 mg PO BID PRN Pain 09/30/22 09/30/22 Unknown History Allergies Allergy/AdvReac Type Severity Reaction Status Date / Time Penicillins Allergy ALGY-Rash Verified 09/14/22 09:55 bee/wasp sting Allergy Severe ALGY-Anaphy Uncoded 09/14/22 09:55 laxis PFSH Acute PFSH: Medical History Altered mental status Amphetamine addiction Anxiety Aspiration of foreign body in respiratory tract Borderline personality disorder Cervical neuropathic pain Chronic idiopathic pain syndrome Chronic pain syndrome COPD (chronic obstructive pulmonary disease) COPD (chronic obstructive pulmonary disease) DDD (degenerative disc disease), cervical DJD (degenerative joint disease), lumbar GERD (gastroesophageal reflux disease) Hepatitis C, chronic History of intravenous drug abuse Interstitial lung disease Metabolic encephalopathy Opioid dependence, in remission Other stimulant dependence, in remission Partial small bowel obstruction Psychiatric care Pulmonary hypertension PVD (peripheral vascular disease) with claudication Respiratory failure with hypoxia Schizoaffective disorder, bipolar type Surgical History H/O tubal ligation Hx of BKA Hx of right BKA S/P cholecystectomy S/P tonsillectomy Family History Father Cancer lung Hypertension Diabetes Mother Hypertension Lung disease Diabetes Sister Diabetes Brother Diabetes Other CAD (coronary artery disease) Denies family history of Clotting disorder Dementia Hyperlipidemia Psychiatric illness Chronic kidney disease (CKD) Anesthesia complication Bleeding disorder Stroke Social History Smoking and tobacco status: current every day smoker (on chantix to help quit) cigarettes Years cigarettes smoked: 40 [ Other cigarette details: 1 pack per 6 days] Quit status (tobacco): has tried quititng Second hand smoke exposure: Yes Smoking risk assessment/counseling performed?: Yes Alcohol intake: former Counseling given: No Counseling given: No Lives independently: Yes Household members: none Marital status: Current occupational status: disabled Current gender identity: Female Female Reproductive History: Spontaneous abortions: No Vitals/I&O/Wt Last Vital Signs Pulse 101 H 09/30/22 19:00 Resp 15 09/30/22 18:30 BP 89/59 09/30/22 19:00 Pulse Ox 96 09/30/22 19:00 O2 Del Method 09/30/22 19:00 FiO2 60 09/30/22 19:00 Weight last 48 hrs Weight 100 kg Physical Exam HENMT: COMMON NORMALS: normocephalic and atraumatic Resp: COMMON NORMALS: clear to auscultation bilaterally AUSCULTATION: clear to auscultation bilaterally Cardio: COMMON NORMALS: regular rate, regular rhythm, S1 normal heart sound present, S2 normal heart sound present, No gallops present (Cardio), No murmurs present (Cardio), No rub (Cardio) and Peripheral pulses 2+ throughout RATE: regular rate RHYTHM: regular rhythm HEART SOUNDS: S1 normal heart sound present and S2 normal heart sound present PERIPHERAL PULSES: Peripheral pulses 2+ throughout GI: COMMON NORMALS: Normal to inspection, nondistended, normoactive bowel sounds present, Soft to palpation, non-tender, No hepatosplenomegaly present and no masses AUSCULTATION: Yes normoactive bowel sounds PALPATION: Yes Soft to palpation and Yes No hepatosplenomegaly present RECTAL EXAM: deferred Extremity: COMMON NORMALS: no clubbing, cyanosis or edema and no pedal edema NARRATIVE EXTREMITY EXAM: Rt BKA Urinary Catheter Management: Alcantara: Cath Placed During This Visit: yes Reason for Continuing Indwelling Catheter: Accurate Measurement of Urinary Output in Critically Ill Patients Urinary Catheter Date of Insertion: 09/30/22 Urinary Catheter Time of Insertion: 17:56 Data 09/30/22 17:45 09/30/22 17:45 A&P Assessment and plan (1) Prolonged Q-T interval on ECG: (2) Suicide attempt by multiple drug overdose: (3) Hx of right BKA: (4) COPD (chronic obstructive pulmonary disease): (5) Schizoaffective disorder, bipolar type: (6) Acute respiratory failure with hypoxia: (7) Acute alteration in mental status: (8) Aspiration pneumonia: Plan 62 year old female with PMH of SAD/BPD , on multiple psych medication,COPD, pulmonary hypertension, peripheral vascular disease, history of BKA,was brought in from home for the management intentional drug overdose, and suicide attempt , she overdosed herself with 400 mg tablets of Seroquel and 17 x 40 mg tablets of Prozac, initially when she was brought into the ER she was responding to verbal stimuli, but later due to progressive deterioration in the mentation, and her inability to protect airways, she had to be intubated and placed on mechanical ventilation. Intentional drug overdose: CT head without contrast had shown no acute: Intracranial pathology: X-ray chest: Mild increased markings perihilar region and ill-defined opacity or infiltrate lower right lung. Concerning for pneumonia. EKG: SR, QRSD:125, QTc:532 Poison control has been contacted, current plan is to monitor with serial EKG, for corrected QTc as well as QRS duration Acute respiratory failure with hypoxia: Possible concerns for aspiration pneumonia: Follow blood culture Sputum Gram stain and culture Continue meropenem for now Currently she is on mechanical ventilation, Monitor x-ray chest, monitor ABG as needed Suicide attempt: Consult psychiatry when appropriate Altered mental status: Secondary to medication overdose: Currently patient is intubated sedated on mechanical ventilation. On propofol as well as fentanyl. Plan to extubate once appropriate Code status : full code DVT PPX: On lovenox Attestations Medical Necessity Statement*: Patient is hospital for management of overdose. Anticipated length of stay: 2 midnights Critical Care Time: The high probability of a clinically significant, sudden or life threatening deterioration of the patient's [] system(s) required my full and direct attention, intervention and personal management. The critical care time is as shown. This time is in addition to time spent performing any reported procedures but includes the following: [x] Data and vital sign review and interpretation [x] Patient assessment, examination and intervention [x] Documentation [x] Medication orders and management Critical Care Time (min): 35 Coding Level of Care Code Critical Care >/= 30 minutes Diagnoses Prolonged Q-T interval on ECG R94.31 Suicide attempt by multiple drug overdose T50.912A Hx of right BKA Z89.511 COPD (chronic obstructive pulmonary disease) J44.9 Schizoaffective disorder, bipolar type F25.0 Acute respiratory failure with hypoxia J96.01 Acute alteration in mental status R41.82 Aspiration pneumonia J69.0
[2022-09-30] MEDS: magnesium sulfate premix 2 GM/50 ML PIGGYBACK IV (20:34)
[2022-09-30] MEDS: enoxaparin 40 mg/0.4 mL Syringe SUBCUT (20:35)
[2022-09-30] MEDS: meropenem 500 MG in sodium chloride 0.9% (plus) 50 ML 100 MG IV (20:42)
[2022-09-30 20:46] LABS: Troponin 5 2HR 8.34 ng/L (0-10)
[2022-09-30 21:15] LABS: Troponin 5 2HR Delta -0.66 ABS# (0-10)
--- NOTE | 2022-09-30 21:48 | ECG_ITS ---
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 Measurements Intervals [place] Rate: 93 P: 61 NC: 183 QRS: 13 QRSD: 126 T: 38 QT: 443 QTc: 552 Interpretive Statements SINUS RHYTHM MODERATE INTRAVENTRICULAR CONDUCTION DELAY [110+ ms QRS DURATION] PROLONGED QT INTERVAL Compared to ECG 09/30/2022 19:19:21 Intraventricular conduction delay now present Prolonged QT interval now present Myocardial infarct finding no longer present Electronically Signed On 10-01-2022 18:13:08 FWS FACULTY ASSISTANT by Abhishek Perkins M.D. [id number]
[2022-09-30 23:48] LABS: Troponin 5 6HR 9.46 ng/L (0-10)
[2022-10-01] VITALS (104 sets, daily range): BP systolic 99–144; BP diastolic 60–92; PULSE 81–111; RESP 14–28; TEMP 35.1–37.5; O2SAT 92–98
[2022-10-01 00:17] LABS: Glucose Point of Care 158 mg/dL (70-110)
[2022-10-01 00:25] LABS: Troponin 5 6HR Delta -1.12 ng/L (0-12)
[2022-10-01 02:13] LABS: Glucose Point of Care 144 mg/dL (70-110)
[2022-10-01 03:08] LABS: Basophils % 0.3 %; Eosinophils # 0.2 10^3/uL (0.0-0.8); Eosinophils % 2.8 %; Hematocrit 35.4 % (37.0-47.0); Lymphocytes # 3.5 10^3/uL (0.8-4.8); Lymphocytes % 50.5 %; Mean Corpuscular HGB Conc 31.1 g/dL (30.0-36.0); Mean Corpuscular Hemoglobin 28.4 pg (28.0-34.0); Mean Corpuscular Volume 91.2 fl (81-99); Mean Platelet Volume 8.7 fL (7.4-10.4); Monocytes # 0.5 10^3/uL (0.2-0.9); Monocytes % 6.7 %; Neutrophils # 2.67 10^3/uL (1.8-7.7); Neutrophils % 39.1 %; Nucleated Red Blood Cells % 0 %; Platelet Count 218 10^3/cmm (130-400); Red Blood Count 3.88 10^6/uL (4.1-5.3); Red Cell Distribution Width 14.5 % (12.1-15.1); White Blood Count 6.8 10^3/uL (4.0-10.0)
[2022-10-01] MEDS: meropenem 500 MG in sodium chloride 0.9% (plus) 50 ML 100 MG IV ×3 (03:12→19:35)
[2022-10-01 03:21] LABS: Lactic Sepsis W/Reflex 0.9 mmol/L (0.5-2.2)
[2022-10-01 03:23] LABS: Alanine Aminotransferase 46 U/L (0-33); Albumin Level 3.2 g/dL (3.5-5.2); Alkaline Phosphatase 204 U/L (35-105); Anion Gap 12.8 (5-19); Aspartate Amino Transferase 38 U/L (0-32); Blood Urea Nitrogen 10 mg/dL (8-23); Calcium 8.4 mg/dL (8.5-10.5); Carbon Dioxide 26 mmol/L (22-29); Chloride 102 mmol/L (98-107); Globulin 2.6 g/dL (1.3-4.6); Glucose 157 mg/dL (65-115); Magnesium 2.3 mg/dL (1.7-2.3); Osmolality Calculated 286 mOsm/kg (285-295); Potassium 3.8 mmol/L (3.5-5.1); Sodium 137 mmol/L (136-145); Total Bilirubin 0.4 mg/dL (0.15-1.2); Total Protein 5.8 g/dL (6.6-8.7)
[2022-10-01 03:28] LABS: Procalcitonin 0.08 ng/mL (0-0.5)
[2022-10-01] MEDS: ipratropium-albuterol 3 mL Neb INHALATION ×4 (03:32→19:55)
--- NOTE | 2022-10-01 04:07 | ECG_ITS ---
[facility] Test Date: 2022-10-01 Pat Name: Dalila Samuels Department: Room: [facility]05 Gender: Female Sponge Buffer: : 1960 Requested By: Alpesh Tony Order Number: [id number] Danae MD: Abhishek Perkins M.D. Measurements Intervals [place] Rate: 90 P: 57 IA: 156 QRS: 14 QRSD: 116 T: 49 QT: 431 QTc: 530 Interpretive Statements SINUS RHYTHM MODERATE INTRAVENTRICULAR CONDUCTION DELAY [110+ ms QRS DURATION] PROLONGED QT INTERVAL Compared to ECG 09/30/2022 21:48:59 No significant changes Electronically Signed On 10-01-2022 18:12:48 ORDER ENTRY ADMINISTRATOR by Abhishek Perkins M.D. [id number]
--- NOTE | 2022-10-01 05:54 | PC.NURSE ---
09/30/222144 Pt arrived on unit from ER. Initial temperature 94.1. Bear hugger applied. 10/01/22 0215 Noted change in pts urine from clear dark yellow to milky opaque yellow. UO remains adequate. notified. Will continue to monitor. 10/01/22 0400 Pt normothermic. Bear hugger discontinued.
[2022-10-01 06:57] LABS: Glucose Point of Care 115 mg/dL (70-110)
--- NOTE | 2022-10-01 09:01 | PC.PHAR ---
pt is intubated unable to verify medications-pt had brought in med bottles-medications entered are from the pts med bottles and previous entered med list
--- NOTE | 2022-10-01 14:54 | P.PN_ITS ---
Subjective Subjective: She appears to respond to voice and her name briefly nodding her head, but does not answer other questions or follow directions. Confused, reaching out, noted asterixis. Vitals/I&O/Wt Last Vital Signs Temp 99.1 F 10/01/22 08:00 Pulse 101 H 10/01/22 14:00 Resp 28 H 10/01/22 13:20 BP 129/81 10/01/22 14:00 Pulse Ox 93 10/01/22 14:00 O2 Del Method 10/01/22 13:20 O2 Flow Rate 60 09/30/22 19:30 FiO2 35 10/01/22 13:20 09/30/22 10/01/22 10/01/22 22:59 06:59 14:59 Intake Total 1107.667 / 1107.667 53.2 / 1160.867 Output Total 775 / 775 Balance 1107.667 / 1107.667 -721.8 / 385.867 Weight last 48 hrs Weight 100 kg Physical Exam Const: GENERAL APPEARANCE: patient mechanically ventilated ORIENTATION/CONSCIOUSNESS: Yes confused HENMT: COMMON NORMALS: oropharynx normal Neck/C-Spine: COMMON NORMALS: no JVD Resp: COMMON NORMALS: normal respiratory effort and clear to auscultation bilaterally AUSCULTATION: clear to auscultation bilaterally Cardio: COMMON NORMALS: no JVD, S1 normal heart sound present, S2 normal heart sound present and No murmurs present (Cardio) HEART SOUNDS: S1 normal heart sound present and S2 normal heart sound present GI: COMMON NORMALS: Normal to inspection, nondistended, normoactive bowel sounds present, Soft to palpation and non-tender PALPATION: Yes Soft to palpation Extremity: COMMON NORMALS: no joint enlargement and no pedal edema OTHER: Right BKA Neuro: COMMON NORMALS: moves all extremities Urinary Catheter Management: Alcantara: Cath Placed During This Visit: no Data 10/01/22 02:36 10/01/22 02:36 Micro: Microbiology 09/30/22 20:22 Blood Culture - Preliminary Blood SPECIMEN COLLECTED 09/30/22 20:18 Blood Culture - Preliminary Blood SPECIMEN COLLECTED A&P Assessment and plan (1) Prolonged Q-T interval on ECG: (2) Suicide attempt by multiple drug overdose: (3) Hx of right BKA: (4) COPD (chronic obstructive pulmonary disease): (5) Schizoaffective disorder, bipolar type: (6) Acute respiratory failure with hypoxia: (7) Acute alteration in mental status: (8) Aspiration pneumonia: Plan 62 year old female with PMH of SAD/BPD , on multiple psych medication,COPD, pulmonary hypertension, peripheral vascular disease, history of BKA,was brought in from home for the management intentional drug overdose, and suicide attempt , she overdosed herself with 400 mg tablets of Seroquel and 17 x 40 mg tablets of Prozac, initially when she was brought into the ER she was responding to verbal stimuli, but later due to progressive deterioration in the mentation, and her inability to protect airways, she had to be intubated and placed on mechanical ventilation. Intentional drug overdose: Reviewed admission notes. Noted on minimal ventilator support, but remains confused, somewhat restless, moving about, reaching out. Does appear to nod to her name, but does not follow directions or answer questions. Asterixis. Acute encephalopathy secondary to toxicity from medication overdose. For now no extubation. QTc prolongation: EKG reviewed, NSR. QTc appreciated 530, decreasing. CT head without contrast had shown no acute: Intracranial pathology: X-ray chest: Mild increased markings perihilar region and ill-defined opacity or infiltrate lower right lung. Concerning for pneumonia. Poison control: monitor with serial EKG, for corrected QTc as well as QRS duration Possible pneumonia: Continue meropenem. Currently mechanical ventilatory support until able to protect airway/mental status improves. Acute respiratory failure with hypoxia: Possible concerns for aspiration pneumonia: As above Follow blood culture Sputum Gram stain and culture Continue meropenem for now Currently she is on mechanical ventilation, Monitor x-ray chest, monitor ABG as needed Suicide attempt: Consult psychiatry when appropriate Altered mental status: Secondary to medication overdose: Currently patient is intubated sedated on mechanical ventilation. On propofol as well as fentanyl. Plan to extubate once appropriate Code status : full code DVT PPX: On lovenox Attestations Medical Necessity Statement*: Continue admission for assessment management of acute encephalopathy with toxicity from medication overdose in a suicide attempt. Coding Level of Care Code Critical Care >/= 30 minutes Critical care time (in minutes): 35 The high probability of a clinically significant, sudden or life threatening deterioration, as referenced in this documentation, required my full and direct attention, intervention and personal management. The critical care time shown is in addition to time spent performing any reported separately billable procedures and includes the following: [x] Data and vital sign review and interpretation [x ] Patient assessment, examination and intervention [x] Medication orders and management [x] Patient/Family updates as able [x] Care Coordination and Documentation. Diagnoses Prolonged Q-T interval on ECG R94.31 Suicide attempt by multiple drug overdose T50.912A Hx of right BKA Z89.511 COPD (chronic obstructive pulmonary disease) J44.9 Schizoaffective disorder, bipolar type F25.0 Acute respiratory failure with hypoxia J96.01 Acute alteration in mental status R41.82 Aspiration pneumonia J69.0
[2022-10-01] MEDS: propofol 1,000 MG/100 ML INJ 6 MG IV (18:27)
[2022-10-01] MEDS: enoxaparin 40 mg/0.4 mL Syringe SUBCUT (19:36)
[2022-10-01] MEDS: propofol 1,000 MG/100 ML INJ 18 MG IV (22:55)
[2022-10-02] VITALS (60 sets, daily range): BP systolic 73–152; BP diastolic 54–101; PULSE 90–111; RESP 14–33; TEMP 37.6; O2SAT 88–95
[2022-10-02] MEDS: ipratropium-albuterol 3 mL Neb INHALATION ×4 (01:15→20:06)
[2022-10-02] MEDS: propofol 1,000 MG/100 ML INJ 18 MG IV ×2 (02:27→09:21)
[2022-10-02 02:50] LABS: Basophils % 0.3 %; Eosinophils # 0.1 10^3/uL (0.0-0.8); Eosinophils % 0.9 %; Hematocrit 37.9 % (37.0-47.0); Mean Corpuscular HGB Conc 31.7 g/dL (30.0-36.0); Mean Corpuscular Hemoglobin 28.4 pg (28.0-34.0); Mean Corpuscular Volume 89.8 fl (81-99); Mean Platelet Volume 8.7 fL (7.4-10.4); Monocytes # 0.7 10^3/uL (0.2-0.9); Monocytes % 5.7 %; Neutrophils # 3.96 10^3/uL (1.8-7.7); Neutrophils % 33.4 %; Nucleated Red Blood Cells % 0 %; Platelet Count 265 10^3/cmm (130-400); Red Blood Count 4.22 10^6/uL (4.1-5.3); Red Cell Distribution Width 14.7 % (12.1-15.1); White Blood Count 11.9 10^3/uL (4.0-10.0)
[2022-10-02 03:10] LABS: Alanine Aminotransferase 46 U/L (0-33); Albumin Level 3.2 g/dL (3.5-5.2); Alkaline Phosphatase 210 U/L (35-105); Aspartate Amino Transferase 41 U/L (0-32); Blood Urea Nitrogen 9 mg/dL (8-23); Calcium 8.6 mg/dL (8.5-10.5); Carbon Dioxide 24 mmol/L (22-29); Chloride 102 mmol/L (98-107); Globulin 2.9 g/dL (1.3-4.6); Glomerular Filtration Rate 85.4 mL/min (90-130); Glucose 88 mg/dL (65-115); Osmolality Calculated 284 mOsm/kg (285-295); Sodium 138 mmol/L (136-145); Total Bilirubin 0.5 mg/dL (0.15-1.2); Total Protein 6.1 g/dL (6.6-8.7)
[2022-10-02] MEDS: meropenem 500 MG in sodium chloride 0.9% (plus) 50 ML 100 MG IV ×3 (04:15→20:22)
[2022-10-02 04:58] LABS: ABG PCO2 42.5 mmHg (35-45); ABG PH Result 7.41 (7.35-7.45); Arterial Blood Gas Hematocrit 40.7 % (37-47); Base Excess ABG 2.2 mmol/L (-2.0-2.0); Blood Gas Allen Test Pos; Blood Gas Operator Identificat JB; Blood Gas Sample Site Radial, right; Blood Gas Sample Type Arterial; Carboxyhemoglobin 1.4 %THgb (0.4-20.1); HCO3 ABG 27.1 mmol/L (22-26); HGB O2 Sat 93.4 % (95-100); Ionized Calcium Level - ABG 1.2 mmol/L (1.1-1.4); Methemoglobin 0.9 % (0.4-1.5); Oxygen Saturation ABG 95.7; PO2 ABG 78.2 mmHg (80.0-100.0); Potassium Level - ABG 3.8 mmol/L (3.5-5.0); Total Hemoglobin 13.3 g/dL (12-16)
[2022-10-02 04:59] LABS: Alveolar-Arterial Oxygen Gradi 14.6 mmHg (5-10); Blood Gas Tidal Volume 0.45; Oxygen Device VENT
--- NOTE | 2022-10-02 12:20 | PC.NURSE ---
pt was extubated at 1120 to 2L NC. She is A&O x4 and yelling and cursing at staff. After this nurse deescalated the situation the patient said I was hurt because my daughters are and I took all those pills but now I don't want to . She has since stated multiple times that taking those pills was a huge mistake .
[2022-10-02] MEDS: acetaminophen 325 mg Tablet 650 MG PO (15:42)
[2022-10-02] MEDS: LORazepam 1 mg Tablet PO ×2 (15:42→20:30)
--- NOTE | 2022-10-02 16:34 | PC.NURSE ---
The patient asked this nurse to remove daughter Laurie from contact list. Case management was contacted.
--- NOTE | 2022-10-02 20:12 | PM.PN ---
Subjective Subjective: Last night she had a difficult night with agitation, trying to kick staff, sedation had to be increased. This morning she wakes up well, states does not remember overdose suicide attempt. Is agreeable to speak with psychiatry and admit to neuropsychiatric unit. Denies pain or discomfort. Vitals/I&O/Wt Last Vital Signs Temp 99.5 F 10/01/22 14:30 Pulse 101 H 10/02/22 20:10 Resp 22 H 10/02/22 20:08 BP 128/70 10/02/22 19:30 Pulse Ox 88 L 10/02/22 20:08 O2 Del Method 10/02/22 20:08 O2 Flow Rate 2 10/02/22 13:40 FiO2 30 10/02/22 11:03 10/02/22 10/02/22 10/02/22 06:59 14:59 22:59 Intake Total 158.1 / 362.40 148.167 / 148.167 410 / 558.167 Output Total 300 / 800 1400 / 1400 Balance -141.9 / -437.60 148.167 / 148.167 -990 / -841.833 Physical Exam Const: COMMON NORMALS: alert GENERAL APPEARANCE: cooperative and patient mechanically ventilated HENMT: COMMON NORMALS: oropharynx normal Neck/C-Spine: COMMON NORMALS: no JVD Resp: COMMON NORMALS: normal respiratory effort and clear to auscultation bilaterally AUSCULTATION: clear to auscultation bilaterally Cardio: COMMON NORMALS: no JVD, regular rhythm, S1 normal heart sound present, S2 normal heart sound present and No murmurs present (Cardio) RHYTHM: regular rhythm HEART SOUNDS: S1 normal heart sound present and S2 normal heart sound present GI: COMMON NORMALS: Normal to inspection, nondistended, normoactive bowel sounds present, Soft to palpation and non-tender PALPATION: Yes Soft to palpation Extremity: COMMON NORMALS: no joint enlargement and no pedal edema OTHER: Right BKA Neuro: COMMON NORMALS: moves all extremities SENSORIUM/ORIENTATION: Yes alert Skin: COMMON NORMALS: no rashes or lesions noted GENERAL SKIN EXAM: no rashes or lesions noted Urinary Catheter Management: Alcantara: Cath Placed During This Visit: yes Reason for Continuing Indwelling Catheter: Accurate Measurement of Urinary Output in Critically Ill Patients Urinary Catheter Date of Insertion: 09/30/22 Urinary Catheter Time of Insertion: 17:56 Data 10/02/22 02:07 10/02/22 02:07 Micro: Microbiology 09/30/22 22:13 Gram Stain - Final Sputum - Endotracheal Wash Sputum Culture - Preliminary 09/30/22 20:22 Blood Culture - Preliminary Blood NEGATIVE TO DATE 09/30/22 20:18 Blood Culture - Preliminary Blood NEGATIVE TO DATE A&P Assessment and plan (1) Prolonged Q-T interval on ECG: (2) Suicide attempt by multiple drug overdose: (3) Hx of right BKA: (4) COPD (chronic obstructive pulmonary disease): (5) Schizoaffective disorder, bipolar type: (6) Acute respiratory failure with hypoxia: (7) Acute alteration in mental status: (8) Aspiration pneumonia: Plan 62 year old female with PMH of SAD/BPD , on multiple psych medication,COPD, pulmonary hypertension, peripheral vascular disease, history of BKA,was brought in from home for the management intentional drug overdose, and suicide attempt , she overdosed herself with 400 mg tablets of Seroquel and 17 x 40 mg tablets of Prozac, initially when she was brought into the ER she was responding to verbal stimuli, but later due to progressive deterioration in the mentation, and her inability to protect airways, she had to be intubated and placed on mechanical ventilation. Intentional drug overdose: Agitation last night, but this morning doing better. Waking up well. On minimal ventilator settings. Discussed with nursing, RT. Does not remember attempted suicide with overdose preadmission. Discussed with her regarding this. She is agreeable to speak with psychiatry, admit to neuropsychiatric unit. Discussed with psychiatrist on-call, he will consider admission versus consultation on the floor depending on whether her needs can be met at neuropsychiatric unit with BKA and low rate oxygen. Extubated to nasal cannula. Should not discharge without psychiatry approval. CT head without contrast had shown no acute: Intracranial pathology: X-ray chest: Mild increased markings perihilar region and ill-defined opacity or infiltrate lower right lung. Concerning for pneumonia. Poison control: monitor with serial EKG, for corrected QTc as well as QRS duration Possible pneumonia: Currently on meropenem, transition to oral medication on transfer to [facility] psychiatric unit. Acute respiratory failure with hypoxia: Possible concerns for aspiration pneumonia: As above Follow blood culture Sputum Gram stain and culture Continue meropenem for now Currently she is on mechanical ventilation, Monitor x-ray chest, monitor ABG as needed Suicide attempt: As above. Altered mental status: Secondary to medication overdose. With improvement. Code status : full code DVT PPX: On lovenox Attestations Medical Necessity Statement*: Continue admission for assessment management following suicide attempt with medication overdose. Coding Level of Care Code Critical Care >/= 30 minutes Critical care time (in minutes): 30 The high probability of a clinically significant, sudden or life threatening deterioration, as referenced in this documentation, required my full and direct attention, intervention and personal management. The critical care time shown is in addition to time spent performing any reported separately billable procedures and includes the following: [x] Data and vital sign review and interpretation [x] Patient assessment, examination and intervention [x] Medication orders and management [x] Patient/Family updates as able [x] Care Coordination and Documentation. Diagnoses Prolonged Q-T interval on ECG R94.31 Suicide attempt by multiple drug overdose T50.912A Hx of right BKA Z89.511 COPD (chronic obstructive pulmonary disease) J44.9 Schizoaffective disorder, bipolar type F25.0 Acute respiratory failure with hypoxia J96.01 Acute alteration in mental status R41.82 Aspiration pneumonia J69.0
[2022-10-02] MEDS: enoxaparin 40 mg/0.4 mL Syringe SUBCUT (20:23)
[2022-10-03] VITALS (44 sets, daily range): BP systolic 73–168; BP diastolic 54–145; PULSE 82–113; RESP 14–35; TEMP 36.9–37.5; O2SAT 80–94
[2022-10-03] MEDS: ipratropium-albuterol 3 mL Neb INHALATION ×3 (01:20→13:17)
[2022-10-03] MEDS: meropenem 500 MG in sodium chloride 0.9% (plus) 50 ML 100 MG IV ×2 (03:42→11:02)
[2022-10-03 05:25] LABS: Basophils % 0.3 %; Eosinophils # 0.2 10^3/uL (0.0-0.8); Eosinophils % 1.8 %; Hematocrit 39.5 % (37.0-47.0); Hemoglobin 12.5 g/dL (11.5-15.3); Lymphocytes # 4.6 10^3/uL (0.8-4.8); Lymphocytes % 47.3 %; Mean Corpuscular HGB Conc 31.6 g/dL (30.0-36.0); Mean Corpuscular Hemoglobin 28.5 pg (28.0-34.0); Mean Platelet Volume 8.5 fL (7.4-10.4); Monocytes # 0.9 10^3/uL (0.2-0.9); Monocytes % 8.9 %; Neutrophils # 4.02 10^3/uL (1.8-7.7); Nucleated Red Blood Cells % 0 %; Platelet Count 288 10^3/cmm (130-400); Red Blood Count 4.39 10^6/uL (4.1-5.3); Red Cell Distribution Width 14.4 % (12.1-15.1); White Blood Count 9.8 10^3/uL (4.0-10.0)
[2022-10-03 05:42] LABS: Alanine Aminotransferase 45 U/L (0-33); Albumin Level 3.3 g/dL (3.5-5.2); Alkaline Phosphatase 211 U/L (35-105); Anion Gap 14.4 (5-19); Aspartate Amino Transferase 44 U/L (0-32); Blood Urea Nitrogen 7 mg/dL (8-23); Carbon Dioxide 25 mmol/L (22-29); Chloride 98 mmol/L (98-107); Globulin 3.2 g/dL (1.3-4.6); Glucose 147 mg/dL (65-115); Osmolality Calculated 277 mOsm/kg (285-295); Potassium 4.4 mmol/L (3.5-5.1); Sodium 133 mmol/L (136-145); Total Bilirubin 0.5 mg/dL (0.15-1.2); Total Protein 6.5 g/dL (6.6-8.7)
[2022-10-03] MEDS: LORazepam 1 mg Tablet PO ×2 (06:32→17:18)
[2022-10-03] MEDS: acetaminophen 325 mg Tablet 650 MG PO (07:09)
[2022-10-03] MEDS: pantoprazole DR 40 mg Tablet PO (09:05)
[2022-10-03] MEDS: gabapentin 300 mg Capsule PO ×3 (09:05→21:51)
--- NOTE | 2022-10-03 11:40 | PC.NURSE ---
Patient expresses remorse about taking medications to overdose. Patient assessed by Dr. Louis this morning and was determined to not meet need for 1:1 sitter at this time. See message to nurse order. Will keep patient close to nurses station and continue to monitor for safety. Staff on unit is aware of arrangement.
[2022-10-03] MEDS: ondansetron 2 mg/ML SDV 2 mL 4 MG IVP (16:32)
--- NOTE | 2022-10-03 16:35 | P.NPUHP_ITS ---
Providers/Chief Complaint Admitting Physician: Alpesh Tony MD Primary Care Provider: Prasad Rebollar MD Chief Complaint: Overdose HPI NPU History of Present Illness Dalila Samuels is a 62 year old female who presented to the emergency department with the following report: Chief Complaint: Overdose Stated Complaint: Overdose History of Present Illness: Ms Samuels is a 62-year-old lady with psychiatric history presenting to the emergency department due to altered mental status with reported overdose. At approximately 1610 starting to be more negative. We will get hearing is supposed to get here she took 50 x 400 mg tablets of Seroquel and 17 x 40 mg tablets of Prozac in a suicide attempt. Upon EMS arrival patient initially alert to verbal stimuli however progressively deteriorated to only being alert painful stimuli. Patient herself for me moy barberdes no meaningful clinical history. She was admitted to the ICU for definitive treatment of those issues. She was intubated and eventually extubated and presents today slightly more communicativ e than she was right postextubation. However she has that talkative but was able to confirm 2 things. One of the overdose was intentional and was a suicide attempt in 2 she reports that she is no longer suicidal. She reports that the nidus for the situation rests and the fact that she had moved in with a acquaintance and now that person is kicking her out and keeping all of her belongings she fears. We discussed her current circumstances. And her psychiatric history. She has been engaged with [facility] at least and reported history since 2004. She had a least 5 inpatient hospitalizations the last 1 was in November 2019 and excerpt of that discharge summary is included for context given her limited history. In addition to that history of mental health challenges there is also addiction challenges. We discussed the fact that she was not on a 96-hour hold but that she would require continued inpatient hospitalization psychiatrically. She was frantic focused on getting her stuff back, but we discussed support needed to be stable before she could manage those issues. Per her 11/17/2019 [facility] inpatient psychiatric discharge summary: Reason for Visit: Reason For Visit: MHE Brief History: Chief complaint: ?I?m living in a senior living. I don?t need to be living in a senior living.? History of present illness: Dalila Samuels is a 59-year-old woman who has rejected all friends and family and now finds herself alone and unable to meet her basic needs. She is apparently living in a senior living in [place]. She says that she is capable of living on her own and wants to leave. However no one will help her apply for housing. No one will help her get to her appointments. Yesterday, she was told by a friend that she could come live with a friend. Dalila was able to make it to [facility] to get refills on her medications. It is unclear whether she ever got her medications refilled. But her friend with not come and pick her up. She throw fit. The police brought her to the emergency room. Emergency room staff felt that she would do well to the psychiatric unit. She denies suicidal or homicidal ideation. She admits to being chronically depressed. However she insists that her medications are stable and in insistent that if she doesn?t get her 80 mg of Prozac, she will become clinically depressed tomorrow. She claims that she is on Suboxone but cannot name any physician who was prescribing it. She said that she goes to a pain clinic in [place]. Though she cannot get any assistance in any other aspect of her life, she apparently is able to make monthly trips to [place] and says ?they come and get me.? ER physician note: HPI Narrative: 59-year-old female who states she was living in a senior living and did not like the way they took care of her and had left today. She states that she was supposed to meet her friend at [facility] and went to [facility] and friend did not pick her up. Service Specialist were called and they brought her here. She denies any suicidality or homicidality. She states she just needs her psych meds refilled. She is able answer all my questions here appropriately. ER Nursing Note: Upon discharge, patient began getting upset stating that she has to be admitted to the psych unit because she has no where to go, no money to pay for the meds, no car to get anywhere. I'm homeless and need to go to the psych unit now. and the doctor didn't do anything about my back. ED physician was notified and spoke with patient again. Mental health history: No prior psychiatric admissions. No record of outpatient treatment. Social history: The patient is reluctant to talk about her personal history ot her than her current problems and barriers to getting her needs met. She grew up in [place]. She had a sister with whom she was close who last year. With the assistance of social media sr strategy manager, we were able to find out that she had been in a senior living after she was diagnosed with cellulitis last fall and placed in the intensive care unit. Since that time, she has insisted that people help her to return to independent living. However she has sabotaged his efforts likely through her own obstinance and general attitude of refusal to do what she is told. She now finds herself homeless and without any means of support. Legal history: no history of criminal activity or arrest in [place] public record. Hospital Course Hospital Course Diagnoses: Adjustment disorder with disturbance of mood Assessment: Dalila Samuels is a sad disabled woman who finds herself in a situation in which she has become estranged from anyone that would provide assistance in accomplishing her goals of being released from the senior living in finding a place to live. She has the cognitive ability and the problem-solving skills to accomplish her tasks. That is exemplified by her ability to limit information provided to this provider such that is most likely to provide her with the medications which she desires. Unfortunately, she has personality issues that prevent her from interacting with available services will provide significant benefit in acquiring her goal of independent living. She has now lost her placement and is not capable of managing on her own partially due to the absence of services in the environment of a pandemic.. Treatment plan: Due to the psychiatric conditions and treatment listed in the Assessment and Plan - the patient is not an imminent risk to self or others and, in fact, is free of issues that require psychiatric attention at this time. Her psychosocial issues are considerable and it is reasonable to afford her access to the services available now that she is here. The patient was provided a supportive environment with availability for constant nursing service, social work consultation, and entered into the full array of individual and group therapies as part of the unit protocol. No medication changes were made. Her psychosocial situation was examined and a given history of effort by social work personnel to try and preserve access to services from which she had walked away. The patient universally rejected every suggestion and recommendation. She eventually found someone that would allow her to come from the hospital and live with them. She demanded to be discharged. Her wish was granted. Meds NPU Home Medications Medication Instructions Recorded Confirmed Last Taken Type albuterol sulfate 2.5 mg/3 mL 2.5 mg (3 mL) inhalation Q4H PRN 01/06/22 09/30/22 Unknown Rx (0.083 %) solution for nebulization shortness of breath or wheezing #180 mL ibuprofen 800 mg tablet 800 mg PO BID PRN pain 30 days #90 07/20/22 10/01/22 Unknown Rx tabs umeclidinium 62.5 mcg-vilanterol 1 inh inhalation DAILY 30 days #60 07/20/22 10/01/22 09/08/22 Rx 25 mcg/actuation powdr for ea inhalation (Anoro Ellipta) epinephrine 0.3 mg/0.3 mL 0.3 mg (0.3 mL) IM Q15M PRN 08/05/22 10/01/22 Unknown Rx injection, auto-injector (EpiPen anaphylaxis #2 ea 2-Rjei) gentamicin 0.1 % topical ointment 1 applic topical TID #30 grams 09/10/22 10/01/22 Unknown Rx gabapentin 300 mg capsule 300 mg PO TID 30 days #90 caps 09/14/22 10/01/22 Unknown Rx omeprazole 40 mg capsule,delayed 40 mg PO DAILY #30 caps 09/14/22 10/01/22 Unknown Rx release promethazine 12.5 mg tablet 12.5 mg PO DAILY PRN nausea and 09/14/22 10/01/22 Unknown Rx vomiting 30 days #30 tabs bupropion HCl 150 mg tablet,12 hr 150 mg PO BID #60 tabs 09/25/22 10/01/22 Unknown Rx sustained-release fluoxetine 40 mg capsule 80 mg PO DAILY #60 caps 09/25/22 10/01/22 Unknown Rx lamotrigine 100 mg tablet 150 mg PO QAM #45 tabs 09/25/22 10/01/22 Unknown Rx quetiapine 400 mg tablet 600 - 800 mg PO BEDTIME #60 tabs 09/25/22 10/01/22 Unknown Rx benzonatate 200 mg capsule 200 mg PO BID PRN Cough 09/30/22 10/01/22 Unknown History meloxicam 7.5 mg tablet 7.5 mg PO BID PRN Pain 09/30/22 10/01/22 Unknown History albuterol sulfate 90 mcg/actuation 1 puff inhalation QID PRN 10/01/22 10/01/22 Unknown History aerosol inhaler (Ventolin HFA) shortness of breath or wheezing silver sulfadiazine 1 % topical 1 applic topical DAILY PRN unknown 10/01/22 10/01/22 Unknown History cream Allergies Allergy/AdvReac Type Severity Reaction Status Date / Time Penicillins Allergy ALGY-Rash Verified 09/14/22 09:55 bee/wasp sting Allergy Severe ALGY-Anaphy Uncoded 09/14/22 09:55 laxis PFSH NPU PFSH: Medical History Altered mental status Amphetamine addiction Anxiety Aspiration of foreign body in respiratory tract Borderline personality disorder Cervical neuropathic pain Chronic idiopathic pain syndrome Chronic pain syndrome COPD (chronic obstructive pulmonary disease) COPD (chronic obstructive pulmonary disease) DDD (degenerative disc disease), cervical DJD (degenerative joint disease), lumbar GERD (gastroesophageal reflux disease) Hepatitis C, chronic History of intravenous drug abuse Interstitial lung disease Metabolic encephalopathy Opioid dependence, in remission Other stimulant dependence, in remission Partial small bowel obstruction Psychiatric care Pulmonary hypertension PVD (peripheral vascular disease) with claudication Respiratory failure with hypoxia Schizoaffective disorder, bipolar type Surgical History H/O tubal ligation Hx of BKA Hx of right BKA S/P cholecystectomy S/P tonsillectomy Family History Father Cancer lung Hypertension Diabetes Mother Hypertension Lung disease Diabetes Sister Diabetes Brother Diabetes Other CAD (coronary artery disease) Denies family history of Clotting disorder Dementia Hyperlipidemia Psychiatric illness Chronic kidney disease (CKD) Anesthesia complication Bleeding disorder Stroke Social History Smoking and tobacco status: current every day smoker (on chantix to help quit) cigarettes Years cigarettes smoked: 40 [ Other cigarette details: 1 pack per 6 days] Quit status (tobacco): has tried quititng Second hand smoke exposure: Yes Smoking risk assessment/counseling performed?: Yes Alcohol intake: former Counseling given: No Counseling given: No Lives independently: Yes Household members: none Marital status: Current occupational status: disabled Current gender identity: Female Female Reproductive History: Spontaneous abortions: No Mental Status Exam MSE Comments: This is a obese white female who is older than her stated age in hospital gown with limited grooming and eye contact. No abnormal movements except for psychomotor retardation. Absent dentition. Mostly cooperative with exam and mild to moderate distress. Speech was limited and increased rate and decreased volume. Mood described as depressed, affect congruent and tearful. Process mostly organized. Thought content: Patient denied current suicidal or homicidal ideation but endorsed suicidal thoughts prior to the suicide attempt, there were no delusions reported or noted, she denied any auditory or visual hallucinations. Attention and concentration related mostly reliable with formally tested. She alert and oriented x3. Insight, judgment and impulse control impaired. Vitals/I&O/Wt Last Vital Signs Temp 99.5 F 10/03/22 12:30 Pulse 99 10/03/22 20:00 Resp 25 H 10/03/22 20:00 BP 141/95 10/03/22 20:00 Pulse Ox 91 10/03/22 20:00 O2 Del Method 10/03/22 20:00 O2 Flow Rate 2 10/03/22 20:00 FiO2 30 10/02/22 11:03 10/03/22 22:59 Intake Total 295 / 807 Output Total 650 / 1400 Balance -355 / -593 Physical Exam Urinary Catheter Management: Alcantara: Cath Placed During This Visit: yes Reason for Continuing Indwelling Catheter: Accurate Measurement of Urinary Output in Critically Ill Patients Urinary Catheter Date of Insertion: 09/30/22 Urinary Catheter Time of Insertion: 17:56 Data NPU 10/03/22 04:55 10/03/22 04:55 Micro: Microbiology 09/30/22 22:13 Gram Stain - Final Sputum - Endotracheal Wash Sputum Culture - Preliminary Coag positive Staphylococcus Microbiology 09/30/22 22:13 Sputum - Endotracheal Wash Gram Stain - Final 09/30/22 22:13 Sputum - Endotracheal Wash Sputum Culture - Preliminary Coag positive Staphylococcus A&P Assessment and plan (1) Suicide attempt by multiple drug overdose: (2) Borderline personality disorder: (3) Nicotine dependence, cigarettes, with other nicotine-induced disorders: (4) Schizoaffective disorder, bipolar type: Plan This is a 62-year-old white female with a long history of mental health and some addiction issues who presents after an intentional overdose as a suicide attempt after finding her in despair regarding a residential dispute. 1. Continue current medication. We will consider medications and connect with her outpatient team on Wednesday. 2. We will work out logistics of where she should be managed given concerns about having necessary staffing for one-to-one on the unit given her oxygen requirement. 3. We will continue to follow. Involuntary Hold Information 96 Hour Hold: 96 Hour Involuntary Admission: No Attestations NPU Medical Necessity Statement*: N/A. Please see primary team note for medical necessity details. However agree not stable for discharge. Coding Level of Care Code Acute Code for [facility] Fwd Diagnoses Suicide attempt by multiple drug overdose T50.912A Borderline personality disorder F60.3 Nicotine dependence, cigarettes, with other nicotine-induced disorders F17.218 Schizoaffective disorder, bipolar type F25.0
[2022-10-03] MEDS: metoclopramide 5 mg/mL SDV 2 mL IVP (18:19)
--- NOTE | 2022-10-03 18:31 | P.PN_ITS ---
Subjective Subjective: She says she is doing okay today. She now remembers overdosing on medication in a suicide attempt. States that she has been stressed out by her roommate and living situation and has been depressed. Vitals/I&O/Wt Last Vital Signs Temp 99.5 F 10/03/22 12:30 Pulse 96 10/03/22 17:30 Resp 16 10/03/22 17:30 BP 115/90 10/03/22 17:30 Pulse Ox 89 L 10/03/22 17:30 O2 Del Method 10/03/22 17:30 O2 Flow Rate 3 10/03/22 13:17 FiO2 30 10/02/22 11:03 10/03/22 10/03/22 10/03/22 06:59 14:59 22:59 Intake Total 350 / 1358.167 512 / 512 Output Total 800 / 2650 750 / 750 650 / 1400 Balance -450 / -1291.833 -238 / -238 -650 / -888 Physical Exam Const: COMMON NORMALS: patient oriented x3 and alert GENERAL APPEARANCE: cooperative ORIENTATION/CONSCIOUSNESS: Yes awake and Yes confused HENMT: COMMON NORMALS: oropharynx normal Neck/C-Spine: COMMON NORMALS: no JVD Resp: COMMON NORMALS: normal respiratory effort and clear to auscultation bilaterally AUSCULTATION: clear to auscultation bilaterally Cardio: COMMON NORMALS: no JVD, regular rhythm, S1 normal heart sound present, S2 normal heart sound present and No murmurs present (Cardio) RHYTHM: regular rhythm HEART SOUNDS: S1 normal heart sound present and S2 normal heart sound present GI: COMMON NORMALS: Normal to inspection, nondistended, normoactive bowel sounds present, Soft to palpation and non-tender PALPATION: Yes Soft to palpation Extremity: COMMON NORMALS: no joint enlargement and no pedal edema OTHER: Right BKA Neuro: COMMON NORMALS: patient oriented x3 and moves all extremities SENSORIUM/ORIENTATION: Yes alert Skin: COMMON NORMALS: no rashes or lesions noted GENERAL SKIN EXAM: no rashes or lesions noted Urinary Catheter Management: Alcantara: Cath Placed During This Visit: yes Reason for Continuing Indwelling Catheter: Accurate Measurement of Urinary Output in Critically Ill Patients Urinary Catheter Date of Insertion: 09/30/22 Urinary Catheter Time of Insertion: 17:56 Data 10/03/22 04:55 10/03/22 04:55 Micro: Microbiology 09/30/22 22:13 Gram Stain - Final Sputum - Endotracheal Wash Sputum Culture - Preliminary Coag positive Staphylococcus A&P Assessment and plan (1) Prolonged Q-T interval on ECG: (2) Suicide attempt by multiple drug overdose: (3) Hx of right BKA: (4) COPD (chronic obstructive pulmonary disease): (5) Schizoaffective disorder, bipolar type: (6) Acute respiratory failure with hypoxia: (7) Acute alteration in mental status: (8) Aspiration pneumonia: Plan 62 year old female with PMH of SAD/BPD , on multiple psych medication,COPD, pulmonary hypertension, peripheral vascular disease, history of BKA,was brought in from home for the management intentional drug overdose, and suicide attempt , she overdosed herself with 50 400 mg tablets of Seroquel and 17 x 40 mg tablets of Prozac, initially when she was brought into the ER she was responding to verbal stimuli, but later due to progressive deterioration in the mentation, and her inability to protect airways, she had to be intubated and placed on mechanical ventilation. Intentional drug overdose: Extubated, on a couple liters of oxygen. Pending further evaluation management by psychiatry. Depending on logistical ability to admit to NPU with BKA and low rate oxygen. Should not discharge without psychiatry approval. CT head without contrast had shown no acute: Intracranial pathology: X-ray chest: Mild increased markings perihilar region and ill-defined opacity or infiltrate lower right lung. Concerning for pneumonia. Poison control: monitor with serial EKG, for corrected QTc as well as QRS duration Possible pneumonia: Switch antibiotic to Levaquin. Noted coagulase positive staph in sputum. Acute respiratory failure with hypoxia: Possible concerns for aspiration pneumonia: As above Follow blood culture Sputum Gram stain and culture Continue meropenem for now Currently she is on mechanical ventilation, Monitor x-ray chest, monitor ABG as needed Suicide attempt: As above. Altered mental status: Secondary to medication overdose. With improvement. Code status : full code DVT PPX: On lovenox Attestations Medical Necessity Statement*: Continue admission for assessment management of worsening depression with suicide attempt. Diagnoses Prolonged Q-T interval on ECG R94.31 Suicide attempt by multiple drug overdose T50.912A Hx of right BKA Z89.511 COPD (chronic obstructive pulmonary disease) J44.9 Schizoaffective disorder, bipolar type F25.0 Acute respiratory failure with hypoxia J96.01 Acute alteration in mental status R41.82 Aspiration pneumonia J69.0
--- NOTE | 2022-10-03 19:00 | PC.NURSE ---
Fentanyl and Propofol removed from pt room. Approximately 55ml of Propofol and 52ml of Fentanyl wasted in sink w/ Bryant Montelongo RN.
[2022-10-03] MEDS: enoxaparin 40 mg/0.4 mL Syringe SUBCUT (19:23)
[2022-10-03] MEDS: levoFLOXacin 750 mg Tablet PO (19:23)
--- NOTE | 2022-10-03 20:36 | PC.NURSE ---
Pt states they are nauseated. This RN witnessed pt sticking her fingers in her mouth and gagging. Educated pt on options for nausea and the importance of not making herself throw up. Pt verbalized understanding.
[2022-10-04] VITALS (23 sets, daily range): BP systolic 83–135; BP diastolic 58–106; PULSE 83–108; RESP 15–28; TEMP 36.9; O2SAT 31–94
[2022-10-04] MEDS: ipratropium-albuterol 3 mL Neb INHALATION ×4 (02:05→19:16)
[2022-10-04] MEDS: lamoTRIgine 100 mg Tablet 150 MG PO (06:38)
[2022-10-04] MEDS: gabapentin 300 mg Capsule PO ×3 (08:04→20:20)
[2022-10-04] MEDS: pantoprazole DR 40 mg Tablet PO (08:04)
[2022-10-04] MEDS: acetaminophen 325 mg Tablet 650 MG PO ×2 (10:25→18:13)
[2022-10-04] MEDS: nicotine 21 mg Patch 1 PATCH TRANSDERMA (11:30)
--- NOTE | 2022-10-04 11:39 | P.NPUPN_ITS ---
Subjective NPU Subjective: Patient presented today very tearful as she lamented over all of her belongings that were going to be lost. She had a list on clipboard that constituted everything that within this house that she was not going to get back. We discussed briefly her jumping the gun in relation to feeling she would not be able to get her belongings. We also discussed her diagnosis of borderline personality disorder and this represented her condition and the need to use the skills she has hopefully been working on in treatment. Mental Status Exam MSE Comments: This is a obese white female who is older than her stated age in hospital gown with limited grooming and eye contact. No abnormal movements except for psychomotor agitation. Absent dentition. Mostly cooperative with exam and mild to moderate distress. Speech was limited and increased rate and decreased volume. Mood described as depressed, affect congruent and very tearful. Process mostly organized. Thought content: Patient denied current s uicidal or homicidal ideation but endorsed suicidal thoughts prior to the suicide attempt, there were no delusions reported or noted, she denied any auditory or visual hallucinations. Attention and concentration related mostly reliable with formally tested. She alert and oriented x3. Insight, judgment and impulse control impaired. Vitals/I&O/Wt Last Vital Signs Temp 98.5 F 10/03/22 20:00 Pulse 108 H 10/04/22 08:00 Resp 15 10/04/22 08:00 BP 115/72 10/04/22 08:00 Pulse Ox 92 10/04/22 08:00 O2 Del Method 10/04/22 07:29 O2 Flow Rate 2 10/04/22 07:29 FiO2 30 10/02/22 11:03 10/03/22 10/04/22 10/04/22 22:59 06:59 14:59 Intake Total 295 / 807 350 / 350 Output Total 650 / 1400 600 / 2000 Balance -355 / -593 -600 / -1193 350 / 350 Physical Exam Urinary Catheter Management: Alcantara: Cath Placed During This Visit: yes Reason for Continuing Indwelling Catheter: Accurate Measurement of Urinary Output in Critically Ill Patients Urinary Catheter Date of Insertion: 09/30/22 Urinary Catheter Time of Insertion: 17:56 Data NPU 10/03/22 04:55 10/03/22 04:55 Micro: Microbiology 09/30/22 22:13 Gram Stain - Final Sputum - Endotracheal Wash Sputum Culture - Preliminary Coag positive Staphylococcus Microbiology 09/30/22 22:13 Sputum - Endotracheal Wash Gram Stain - Final 09/30/22 22:13 Sputum - Endotracheal Wash Sputum Culture - Preliminary Coag positive Staphylococcus A&P Assessment and plan (1) Suicide attempt by multiple drug overdose: (2) Borderline personality disorder: (3) Nicotine dependence, cigarettes, with other nicotine-induced disorders: (4) Schizoaffective disorder, bipolar type: Plan This is a 62-year-old white female with a long history of mental health and some addiction issues who presents after an intentional overdose as a suicide attempt after finding her in despair regarding a residential dispute. 1. Continue current medication. We will consider medications and connect with her outpatient team on Wednesday. 2. We will work out logistics of where she should be managed given concerns about having necessary staffing for one-to-one on the unit given her oxygen requirement. 3. We will continue to follow. Involuntary Hold Information 96 Hour Hold: 96 Hour Involuntary Admission: No Attestations NPU Medical Necessity Statement*: N/A. Please see primary team note for medical necessity details. However agree not stable for discharge and needing acute psychiatric inpatient assistance. Coding Level of Care Code Acute Code for [facility] Fwd Diagnoses Suicide attempt by multiple drug overdose T50.912A Borderline personality disorder F60.3 Nicotine dependence, cigarettes, with other nicotine-induced disorders F17.218 Schizoaffective disorder, bipolar type F25.0
[2022-10-04] MEDS: levoFLOXacin 750 mg Tablet PO (18:14)
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
[2022-10-04] MEDS: ondansetron 2 mg/ML SDV 2 mL 4 MG IVP (20:16)
[2022-10-04] MEDS: enoxaparin 40 mg/0.4 mL Syringe SUBCUT (20:19)
[2022-10-04] MEDS: lanolin oint 7 gm 1 APPLIC TOPICAL (22:29)
[2022-10-05] VITALS (12 sets, daily range): BP systolic 107–145; BP diastolic 64–105; PULSE 76–108; RESP 13–29; TEMP 36.6–37.1; O2SAT 92–96
[2022-10-05] MEDS: nicotine 4 mg lozenge MUCOUS MEM ×2 (00:10→11:59)
[2022-10-05] MEDS: acetaminophen 325 mg Tablet 650 MG PO ×3 (00:25→14:56)
[2022-10-05] MEDS: metoclopramide 5 mg/mL SDV 2 mL IVP ×2 (05:21→17:20)
[2022-10-05 05:31] LABS: Alanine Aminotransferase 43 U/L (0-33); Albumin Level 3.4 g/dL (3.5-5.2); Alkaline Phosphatase 190 U/L (35-105); Aspartate Amino Transferase 44 U/L (0-32); Globulin 3.2 g/dL (1.3-4.6); Sodium 135 mmol/L (136-145); Total Bilirubin 0.4 mg/dL (0.15-1.2); Total Protein 6.6 g/dL (6.6-8.7)
[2022-10-05] MEDS: lamoTRIgine 100 mg Tablet 150 MG PO (07:08)
--- NOTE | 2022-10-05 08:00 | ECG_ITS ---
[facility] Test Date: 2022-10-05 Pat Name: Dalila Samuels Department: Room: [facility]05 Gender: Female Resident Care Aide: : 1960 Requested By: David Simon Order Number: [id number] Danae MD: Abhishek Perkins M.D. Measurements Intervals [place] Rate: 85 P: 60 MN: 163 QRS: 18 QRSD: 89 T: 37 QT: 356 QTc: 425 Interpretive Statements SINUS RHYTHM Compared to ECG 10/01/2022 04:07:01 Intraventricular conduction delay no longer present Prolonged QT interval no longer present Electronically Signed On 10-05-2022 11:20:02 [employer] by Abhishek Perkins M.D. [id number]
[2022-10-05] MEDS: nicotine 21 mg Patch 1 PATCH TRANSDERMA (08:31)
[2022-10-05] MEDS: gabapentin 300 mg Capsule PO ×3 (08:32→20:08)
[2022-10-05] MEDS: pantoprazole DR 40 mg Tablet PO (08:32)
[2022-10-05] MEDS: ipratropium-albuterol 3 mL Neb INHALATION (08:37)
[2022-10-05] MEDS: ondansetron 2 mg/ML SDV 2 mL 4 MG IVP (09:50)
--- NOTE | 2022-10-05 11:12 | PC.NURSE ---
This nurse discontinued patients indwelling catheter. Patient tolerated removal very well. Tip intact.
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
--- NOTE | 2022-10-05 14:26 | P.PN_ITS ---
Subjective Subjective: Patient was seen this morning, she is sitting up in bed, he tells me that she is quite sad, she tells her that she needs her trazodone, and her paroxetine, denies any chest pain, palpitations, no shortness of breath Vitals/I&O/Wt Last Vital Signs Temp 98.8 F 10/05/22 08:00 Pulse 98 10/05/22 12:00 Resp 29 H 10/05/22 12:00 BP 145/102 10/05/22 12:00 Pulse Ox 96 10/05/22 12:00 O2 Del Method 10/05/22 08:35 O2 Flow Rate 2 10/04/22 14:17 FiO2 30 10/02/22 11:03 10/04/22 10/05/22 10/05/22 22:59 06:59 14:59 Intake Total 700 / 1050 480 / 480 Output Total 450 / 450 1000 / 1450 200 / 200 Balance 250 / 600 -1000 / -400 280 / 280 Physical Exam Const: COMMON NORMALS: no acute distress and patient oriented x3 Resp: COMMON NORMALS: normal respiratory effort, No retractions, No use of accessory muscles and clear to auscultation bilaterally AUSCULTATION: clear to auscultation bilaterally Cardio: COMMON NORMALS: regular rate, regular rhythm, S1 normal heart sound present and S2 normal heart sound present RATE: regular rate RHYTHM: regular rhythm HEART SOUNDS: S1 normal heart sound present and S2 normal heart sound present GI: COMMON NORMALS: Normal to inspection, nondistended, normoactive bowel sounds present and non-tender Extremity: COMMON NORMALS: no pedal edema Neuro: COMMON NORMALS: patient oriented x3 Psych: COMMON NORMALS: mental status grossly normal Urinary Catheter Management: Alcantara: Cath Placed During This Visit: yes, but has since been removed by the nurse Reason for Continuing Indwelling Catheter: Accurate Measurement of Urinary Output in Critically Ill Patients Urinary Catheter Date of Insertion: 09/30/22 Urinary Catheter Time of Insertion: 17:56 Date Urinary Catheter Removed: 10/05/22 Time Urinary Catheter Discontinued: 11:09 Data 10/03/22 04:55 10/05/22 04:52 Micro: Microbiology 09/30/22 22:13 Gram Stain - Final Sputum - Endotracheal Wash Sputum Culture - Final Staphylococcus aureus A&P Assessment and plan (1) Prolonged Q-T interval on ECG: (2) Suicide attempt by multiple drug overdose: (3) Hx of right BKA: (4) COPD (chronic obstructive pulmonary disease): (5) Schizoaffective disorder, bipolar type: (6) Acute respiratory failure with hypoxia: (7) Acute alteration in mental status: (8) Aspiration pneumonia: Plan 62 year old female with PMH of SAD/BPD , on multiple psych medication,COPD, pulmonary hypertension, peripheral vascular disease, history of BKA,was brought in from home for the management intentional drug overdose, and suicide attempt , she overdosed herself with 50 400 mg tablets of Seroquel and 17 x 40 mg tablets of Prozac, initially when she was brought into the ER she was responding to verbal stimuli, but later due to progressive deterioration in the mentation, and her inability to protect airways, she had to be intubated and placed on mechanical ventilation. Intentional drug overdose: QTc within normal limits today, AST 44 ALT 43, on room air, will move to neuropsychiatric unit CT head without contrast had shown no acute: Intracranial pathology: X-ray chest: Mild increased markings perihilar region and ill-defined opacity or infiltrate lower right lung. Concerning for pneumonia. Poison control: monitor with serial EKG, for corrected QTc as well as QRS duration Possible pneumonia: Continue Levaquin Acute respiratory failure with hypoxia: Possible concerns for aspiration pneumo abrahan: As above Follow blood culture Sputum Gram stain and culture On Levaquin Suicide attempt: Start Wellbutrin 150 once daily Altered mental status: Secondary to medication overdose. Resolved. Smoking addiction: Discussed smoking cessation for 3 minutes. She is agreeable for nicotine patches and lozenges. Difficult social situation: Home situation limiting patient's ability for recovery. Case management requested for consultation for assistance with living arrangements. Code status : full code DVT PPX: On lovenox, SCDs Attestations Medical Necessity Statement*: Patient requires hospitalization for suicide attempt we will move to neuropsychiatric unit Coding Level of Care Code Acute Code for [facility] Fwd Diagnoses Prolonged Q-T interval on ECG R94.31 Suicide attempt by multiple drug overdose T50.912A Hx of right BKA Z89.511 COPD (chronic obstructive pulmonary disease) J44.9 Schizoaffective disorder, bipolar type F25.0 Acute respiratory failure with hypoxia J96.01 Acute alteration in mental status R41.82 Aspiration pneumonia J69.0
--- NOTE | 2022-10-05 16:59 | PC.NURSE ---
All documentation, medication administration and line/catheter removal by MARTHA Batista reviewed by this nurse.
--- NOTE | 2022-10-05 18:15 | PC.NURSE ---
At approximately 1800, Patient was transferred to NPU. All belongings with patient Patient had no complaints. Medications and chart left with staff at [facility].
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
[2022-10-05] MEDS: levoFLOXacin 750 mg Tablet PO (20:08)
--- NOTE | 2022-10-05 22:00 | PC.NURSE ---
Patient requesting prn Ibuprofen for pain. C/O general discomfort voiced. Rated pain at a 9/10. Ibuprofen given as ordered. Patient states she has chronic pain and utilizes Ibuprofen at home.
[2022-10-05] MEDS: ibuprofen 600 mg Tablet PO (22:01)
[2022-10-05] MEDS: blistex lip oint 7 gm Tube 1 APPLIC TOPICAL (22:14)
[2022-10-05] MEDS: trazodone 50 mg Tablet PO (22:15)
--- NOTE | 2022-10-05 22:15 | PC.NURSE ---
Patient requesting prn medication for sleep. Reports she did not sleep last night. PRN trazodone given as ordered. Patient returned to room.
--- NOTE | 2022-10-06 02:34 | PC.NURSE ---
Patient reported pain relief earlier after being given Ibuprofen. Trazodone effective. Patient has rested quietly in bed with eyes closed this shift. No sign of distress noted.
[2022-10-06 06:00] VITALS: BP 115/76; PULSE 90; RESP 18; TEMP 36.8; O2SAT 92
[2022-10-06] MEDS: lamoTRIgine 100 mg Tablet 150 MG PO (06:07)
[2022-10-06] MEDS: ibuprofen 600 mg Tablet PO ×3 (08:01→20:21)
[2022-10-06 09:00] VITALS: PULSE 90; RESP 18; O2SAT 92
[2022-10-06] MEDS: pantoprazole DR 40 mg Tablet PO (09:47)
[2022-10-06] MEDS: nicotine 21 mg Patch 1 PATCH TRANSDERMA (09:47)
[2022-10-06] MEDS: gabapentin 300 mg Capsule PO ×3 (09:47→20:17)
[2022-10-06] MEDS: buPROPion XL (24 HR) 150 mg Tablet PO (09:47)
[2022-10-06] MEDS: bisacodyl 5 mg Tablet 10 MG PO (11:06)
[2022-10-06 14:00] VITALS: BP 107/74; PULSE 84; RESP 17; TEMP 36.8; O2SAT 94
--- NOTE | 2022-10-06 15:07 | PM.PN ---
Subjective Subjective: Patient was seen this morning, in neuropsychiatric unit, she has no complaints except she wants her Prozac Vitals/I&O/Wt Last Vital Signs Temp 98.2 F 10/06/22 06:00 Pulse 90 10/06/22 09:00 Resp 18 10/06/22 09:00 BP 115/76 10/06/22 06:00 Pulse Ox 92 10/06/22 09:00 O2 Del Method 10/06/22 09:00 O2 Flow Rate 0 10/05/22 20:00 FiO2 30 10/02/22 11:03 Physical Exam Const: COMMON NORMALS: no acute distress and patient oriented x3 Resp: COMMON NORMALS: normal respiratory effort, No retractions, No use of accessory muscles and clear to auscultation bilaterally AUSCULTATION: clear to auscultation bilaterally Cardio: COMMON NORMALS: regular rate, regular rhythm, S1 normal heart sound present and S2 normal heart sound present RATE: regular rate RHYTHM: regular rhythm HEART SOUNDS: S1 normal heart sound present and S2 normal heart sound present GI: COMMON NORMALS: Normal to inspection, nondistended, normoactive bowel sounds present and non-tender Extremity: COMMON NORMALS: no pedal edema Neuro: COMMON NORMALS: patient oriented x3 Psych: COMMON NORMALS: mental status grossly normal Urinary Catheter Management: Alcantara: Cath Placed During This Visit: yes, but has since been removed by the nurse Reason for Continuing Indwelling Catheter: Accurate Measurement of Urinary Output in Critically Ill Patients Urinary Catheter Date of Insertion: 09/30/22 Urinary Catheter Time of Insertion: 17:56 Date Urinary Catheter Removed: 10/05/22 Time Urinary Catheter Discontinued: 11:09 Data 10/03/22 04:55 10/05/22 04:52 Micro: Microbiology 09/30/22 20:22 Blood Culture - Final Blood NO GROWTH AFTER 5 DAYS 09/30/22 20:18 Blood Culture - Final Blood NO GROWTH AFTER 5 DAYS A&P Assessment and plan (1) Prolonged Q-T interval on ECG: (2) Suicide attempt by multiple drug overdose: (3) Hx of right BKA: (4) COPD (chronic obstructive pulmonary disease): (5) Schizoaffective disorder, bipolar type: (6) Acute respiratory failure with hypoxia: (7) Acute alteration in mental status: (8) Aspiration pneumonia: Plan 62 year old female with PMH of SAD/BPD , on multiple psych medication,COPD, pulmonary hypertension, peripheral vascular disease, history of BKA,was brought in from home for the management intentional drug overdose, and suicide attempt , she overdosed herself with 50 400 mg tablets of Seroquel and 17 x 40 mg tablets of Prozac, initially when she was brought into the ER she was responding to verbal stimuli, but later due to progressive deterioration in the mentation, and her inability to protect airways, she had to be intubated and placed on mechanical ventilation. Intentional drug overdose: QTc within normal , on room air, will monitor in neuropsychiatric unit CT head without contrast had shown no acute: Intracranial pathology: X-ray chest: Mild increased markings perihilar region and ill-defined opacity or infiltrate lower right lung. Concerning for pneumonia. Poison control: monitor with serial EKG, for corrected QTc as well as QRS duration Possible pneumonia: Last dose of Levaquin today Acute respiratory failure with hypoxia: Possible concerns for aspiration pneumonia: Resolved Follow blood culture Sputum Gram stain and culture positive for staph, sensitive to Levaquin, last dose today On Levaquin Suicide attempt: Continue to Wellbutrin 150 once daily Altered mental status: Secondary to medication overdose. Resolved. Smoking addiction: Discussed smoking cessation for 3 minutes. She is agreeable for nicotine patches and lozenges. Difficult social situation: Home situation limiting patient's ability for recovery. Case management requested for consultation for assistance with living arrangements. Code status : full code DVT PPX: Ambulatory We will continue to peripherally follow Attestations Medical Necessity Statement*: Patient requires hospitalization for intentional drug overdose, pneumonia Diagnoses Prolonged Q-T interval on ECG R94.31 Suicide attempt by multiple drug overdose T50.912A Hx of right BKA Z89.511 COPD (chronic obstructive pulmonary disease) J44.9 Schizoaffective disorder, bipolar type F25.0 Acute respiratory failure with hypoxia J96.01 Acute alteration in mental status R41.82 Aspiration pneumonia J69.0
[2022-10-06] MEDS: levoFLOXacin 750 mg Tablet PO (18:02)
--- NOTE | 2022-10-06 19:14 | P.NPUPN_ITS ---
Subjective NPU Subjective: Patient presented today reporting that things are improving. She is working with the social work team for options to get things back from her current living situation. They also discussing different options for where she might live, exploring supportive resources. She denies any new or pressing issues. Mental Status Exam MSE Comments: This is a obese white female who is older than her stated age in hospital scrubs with limited grooming and improving eye contact. No abnormal movements. Absent dentition. Cooperative with exam in no acute distress. Speech was more spontaneous and more normal rate and volume. Mood described as better, affect congruent. Process mostly organized. Thought content: Patient denied current suicidal or homicidal ideation but endorsed suicidal thoughts luís or to the suicide attempt, there were no delusions reported or noted, she denied any auditory or visual hallucinations. Attention and concentration are intact and memory was reliable with none formally tested. She alert and oriented x3. Insight, judgment and impulse control improving. Vitals/I&O/Wt Last Vital Signs Temp 98.6 F 10/06/22 21:56 Pulse 95 10/06/22 21:56 Resp 18 10/06/22 21:56 BP 127/65 10/06/22 21:56 Pulse Ox 90 10/06/22 21:56 O2 Del Method 10/06/22 21:56 O2 Flow Rate 0 10/06/22 20:00 FiO2 30 10/02/22 11:03 Physical Exam Urinary Catheter Management: Alcantara: Cath Placed During This Visit: yes, but has since been removed by the nurse Reason for Continuing Indwelling Catheter: Accurate Measurement of Urinary Output in Critically Ill Patients Urinary Catheter Date of Insertion: 09/30/22 Urinary Catheter Time of Insertion: 17:56 Date Urinary Catheter Removed: 10/05/22 Time Urinary Catheter Discontinued: 11:09 Data NPU 10/03/22 04:55 10/05/22 04:52 A&P Assessment and plan (1) Prolonged Q-T interval on ECG: (2) Suicide attempt by multiple drug overdose: (3) Hx of right BKA: (4) COPD (chronic obstructive pulmonary disease): (5) Schizoaffective disorder, bipolar type: (6) Acute respiratory failure with hypoxia: (7) Acute alteration in mental status: (8) Aspiration pneumonia: (9) Borderline personality disorder: (10) Nicotine dependence, cigarettes, with other nicotine-induced disorders: Plan This is a 62-year-old white female with a long history of mental health and some addiction issues who presents after an intentional overdose as a suicide attempt after finding her in despair regarding a residential dispute. 1. Continue current medication. 2. Continue every 15 minute checks for safety. 3. Encourage individual, group and milieu therapies. 4. Work with social work team to assist her in discharge planning. Involuntary Hold Information 96 Hour Hold: 96 Hour Involuntary Admission: No Attestations NPU Medical Necessity Statement*: Inpatient hospitalization is medically necessary and the clinically appropriate intervention at this time. We will monitor/initiate medications and make changes as indicated. Likely length of stay 1-3 days. Coding Level of Care Code Acute Code for g Fwd Diagnoses Prolonged Q-T interval on ECG R94.31 Suicide attempt by multiple drug overdose T50.912A Hx of right BKA Z89.511 COPD (chronic obstructive pulmonary disease) J44.9 Schizoaffective disorder, bipolar type F25.0 Acute respiratory failure with hypoxia J96.01 Acute alteration in mental status R41.82 Aspiration pneumonia J69.0 Borderline personality disorder F60.3 Nicotine dependence, cigarettes, with other nicotine-induced disorders F17.218
[2022-10-06] MEDS: trazodone 50 mg Tablet PO ×2 (20:19→21:59)
--- NOTE | 2022-10-06 20:20 | PC.NURSE ---
Patient complaining of general discomfort with a rating of 5/10. PRN Ibuprofen given as ordered.
--- NOTE | 2022-10-06 21:05 | PC.NURSE ---
Patient reports some pain relief with a pain rating of 2/10. Patient noted to not have BM since being admitted to ICU before arrival to our unit. Last documented BM was on 09/30/22. Patient was given colace on day shift with no results. Bowel sounds hypoactive in all quadrants per auscultation. Stomach firm. MOM given as ordered. Educated patient on medication and patient voiced understanding. Encourage patient to drink plenty of water during day.
[2022-10-06] MEDS: magnesium hydroxide 30 mL UDC PO (21:10)
--- NOTE | 2022-10-06 21:50 | PC.NURSE ---
Patient requesting prn medication to promote sleep. PRN Trazodone given as ordered. Patient stated she was going to dayroom to watch TV til she felt sleepy.
[2022-10-06 21:56] VITALS: BP 127/65; PULSE 95; RESP 18; TEMP 37; O2SAT 90
--- NOTE | 2022-10-07 00:17 | PC.NURSE ---
Patient resting quietly in bed with eyes closed at this time. No signs of distress noted.
[2022-10-07] MEDS: ibuprofen 600 mg Tablet PO ×3 (03:24→21:01)
[2022-10-07] MEDS: hyDROXYzine 25 mg Capsule 50 MG PO ×2 (03:27→21:00)
--- NOTE | 2022-10-07 03:30 | PC.NURSE ---
Patient reports pain relief. Rated pain at a 3/10 and states it is tolerable. Stated anxiety has decreased since taking vistaril. Watching TV in dayroom.
--- NOTE | 2022-10-07 03:31 | PC.NURSE ---
Patient c/o H/A and neck pain. Rated pain at a 8/10. Ibuprofen given as ordered. Patient requested something for anxiety. Rated anxiety at a 7/10. Vistaril given as ordered. Educated patient on medication and patient voiced understanding.
[2022-10-07 06:00] VITALS: BP 111/75; PULSE 85; RESP 16; TEMP 36.6; O2SAT 89
[2022-10-07] MEDS: lamoTRIgine 100 mg Tablet 150 MG PO (06:56)
[2022-10-07] MEDS: buPROPion XL (24 HR) 150 mg Tablet PO (09:27)
[2022-10-07] MEDS: pantoprazole DR 40 mg Tablet PO (09:27)
[2022-10-07] MEDS: gabapentin 300 mg Capsule PO ×3 (09:27→21:01)
[2022-10-07] MEDS: nicotine 4 mg lozenge MUCOUS MEM ×2 (10:09→21:01)
[2022-10-07 14:00] VITALS: BP 134/85; PULSE 91; RESP 18; TEMP 36.8; O2SAT 93
--- NOTE | 2022-10-07 14:45 | P.NPUPN_ITS ---
Subjective NPU Subjective: Patient presented today reporting that things are improving. She is working with the social work team for possible discharge options. She endorsed openness to getting connected with [facility]. They also discussing different supportive resources given that the shoulders refused her. She denies any new or pressing issues. Mental Status Exam MSE Comments: This is a obese white female who is older than her stated age in hospital scrubs with limited grooming and improving eye contact. No abnormal m ovements. Absent dentition. Cooperative with exam in no acute distress. Speech was more spontaneous and more normal rate and volume. Mood described as better but frustrated, affect congruent. Process mostly organized. Thought content: Patient denied current suicidal or homicidal ideation but endorsed suicidal thoughts prior to the suicide attempt, there were no delusions reported or noted, she denied any auditory or visual hallucinations. Attention and concentration are intact and memory was reliable with none formally tested. She alert and oriented x3. Insight, judgment and impulse control improving. Vitals/I&O/Wt Last Vital Signs Temp 97.8 F 10/07/22 06:00 Pulse 85 10/07/22 06:00 Resp 16 10/07/22 06:00 BP 111/75 10/07/22 06:00 Pulse Ox 89 L 10/07/22 06:00 O2 Del Method 10/07/22 06:00 O2 Flow Rate 0 10/06/22 20:00 FiO2 30 10/02/22 11:03 Physical Exam Urinary Catheter Management: Alcantara: Cath Placed During This Visit: yes, but has since been removed by the nurse Reason for Continuing Indwelling Catheter: Accurate Measurement of Urinary Output in Critically Ill Patients Urinary Catheter Date of Insertion: 09/30/22 Urinary Catheter Time of Insertion: 17:56 Date Urinary Catheter Removed: 10/05/22 Time Urinary Catheter Discontinued: 11:09 Data NPU 10/03/22 04:55 10/05/22 04:52 A&P Assessment and plan (1) Prolonged Q-T interval on ECG: (2) Suicide attempt by multiple drug overdose: (3) Hx of right BKA: (4) COPD (chronic obstructive pulmonary disease): (5) Schizoaffective disorder, bipolar type: (6) Acute respiratory failure with hypoxia: (7) Acute alteration in mental status: (8) Aspiration pneumonia: (9) Borderline personality disorder: (10) Nicotine dependence, cigarettes, with other nicotine-induced disorders: Plan This is a 62-year-old white female with a long history of mental health and some addiction issues who presents after an intentional overdose as a suicide attempt after finding her in despair regarding a residential dispute. 1. Continue current medication. 2. Continue every 15 minute checks for safety. 3. Encourage individual, group and milieu therapies. 4. Work with social work team to assist her in discharge planning. referrals for RT/R[facility] placed as she has no place to go at this point and shelters are refu sing. Involuntary Hold Information 96 Hour Hold: 96 Hour Involuntary Admission: No Attestations NPU Medical Necessity Statement*: Inpatient hospitalization is medically necessary and the clinically appropriate intervention at this time. We will monitor/initiate medications and make changes as indicated. Likely length of stay 1-3 days. Coding Level of Care Code Acute Code for Chg Fwd Diagnoses Prolonged Q-T interval on ECG R94.31 Suicide attempt by multiple drug overdose T50.912A Hx of right BKA Z89.511 COPD (chronic obstructive pulmonary disease) J44.9 Schizoaffective disorder, bipolar type F25.0 Acute respiratory failure with hypoxia J96.01 Acute alteration in mental status R41.82 Aspiration pneumonia J69.0 Borderline personality disorder F60.3 Nicotine dependence, cigarettes, with other nicotine-induced disorders F17.218
[2022-10-07] MEDS: nicotine 2 mg Gum BUCCAL (19:00)
[2022-10-07] MEDS: trazodone 50 mg Tablet PO (21:00)
[2022-10-07] MEDS: magnesium hydroxide 30 mL UDC PO (21:02)
[2022-10-07 21:08] VITALS: BP 146/97; PULSE 95; RESP 17; TEMP 36.8; O2SAT 92
--- NOTE | 2022-10-07 22:30 | PC.NURSE ---
Patient requested M.O.M 30 ml PO for constipation, Trazadone 50mg PO for sleep and Vistaril 50 mg PO for anxiety. All given with HS meds. No reported results for the M.O.M, however the trazadone and Vistaril had good effect.
[2022-10-08 06:00] VITALS: BP 152/54; PULSE 73; RESP 15; TEMP 36.7; O2SAT 91
[2022-10-08] MEDS: gabapentin 300 mg Capsule PO ×2 (09:22→15:08)
[2022-10-08] MEDS: buPROPion XL (24 HR) 150 mg Tablet PO (09:22)
[2022-10-08] MEDS: lamoTRIgine 100 mg Tablet 150 MG PO (09:22)
[2022-10-08] MEDS: nicotine 21 mg Patch 1 PATCH TRANSDERMA (09:23)
[2022-10-08] MEDS: pantoprazole DR 40 mg Tablet PO (09:23)
[2022-10-08] MEDS: nicotine 4 mg lozenge MUCOUS MEM ×3 (09:27→15:08)
--- NOTE | 2022-10-08 14:09 | P.NPUDS_ITS ---
Diagnoses at Discharge Discharge Diagnosis (1) Prolonged Q-T interval on ECG: Status: Acute (2) Suicide attempt by multiple drug overdose: Status: Acute (3) Hx of right BKA: Status: Acute (4) COPD (chronic obstructive pulmonary disease): Status: Acute (5) Schizoaffective disorder, bipolar type: Status: Acute (6) Acute respiratory failure with hypoxia: Status: Resolved (7) Acute alteration in mental status: Status: Resolved (8) Aspiration pneumonia: Status: Resolved (9) Borderline personality disorder: Status: Acute (10) Nicotine dependence, cigarettes, with other nicotine-induced disorders: Status: Acute Reason for Visit Reason for Visit: Overdose Brief History: History of Present Illness Dalila Samuels is a 62 year old female who presented to the emergency department with the following report: Chief Complaint: Overdose Stated Complaint: Overdose History of Present Illness: Ms Samuels is a 62-year-old lady with psychiatric history presenting to the emergency department due to altered mental status with reported overdose. At approximately 1610 starting to be more negative. We will get hearing is supposed to get here she took 50 x 400 mg tablets of Seroquel and 17 x 40 mg tablets of Prozac in a suicide attempt. Upon EMS arrival patient initially alert to verbal stimuli however progressively deteriorated to only being alert painful stimuli. Patient herself for me provides no meaningful clinical history. She was admitted to the ICU for definitive treatment of those issues. She was intubated and eventually extubated and presents today slightly more communicative than she was right postextubation. However she has that talkative but was able to confirm 2 things. One of the overdose was intentional and was a suicide attempt in 2 she reports that she is no longer suicidal. She reports that the nidus for the situation rests and the fact that she had moved in with a acquaintance and now that person is kicking her out and keeping all of her belongings she fears. We discussed her current circumstances. And her psychiatric history. She has been engaged with [facility] at least and reported history since 2004. She had a least 5 inpatient hospitalizations the last 1 was in November 2019 and excerpt of that discharge summary is included for context given her limited history. In addition to that history of mental health challenges there is also addiction challenges. We discussed the fact that she was not on a 96-hour hold but that she would require continued inpatient hospitalization psychiatrically. She was frantic focused on getting her stuff back, but we discussed support needed to be stable before she could manage those issues. Per her 11/17/2019 [facility] inpatient psychiatric discharge summary: Reason for Visit: Reason For Visit: MHE Brief History: Chief complaint: ?I?m living in a mcc. I don?t need to be living in a mcc.? History of present illness: Dalila Samuels is a 59-year-old woman who has rejected all friends and family and now finds herself alone and unable to meet her basic needs. She is apparently living in a mcc in [place]. She says that she is capable of living on her own and wants to leave. However no one will help her apply for housing. No one will help her get to her appointments. Yesterday, she was told by a friend that she could come live with a friend. Dalila was able to make it to [facility] to get refills on her medications. It is unclear whether she ever got her medications refilled. But her friend with not come and pick her up. She throw fit. The police brought her to the emergency room. Emergency room staff felt that she would do well to the psychiatric unit. She denies suicidal or homicidal ideation. She admits to being chronically depressed. However she insists that her medications are stable and in insistent that if she doesn?t get her 80 mg of Prozac, she will become clinically depressed tomorrow. She claims that she is on Suboxone but cannot name any physician who was prescribing it. She said that she goes to a pain clinic in [place]. Though she cannot get any assistance in any other aspect of her life, she apparently is able to make monthly trips to [place] and says ?they come and get me.? ER physician note: HPI Narrative: 59-year-old female who states she was living in a mcc and did not like the way they took care of her and had left today. She states that she was supposed to meet her friend at [facility] and went to [facility] and friend did not pick her up. [employer] were called and they brought her here. She denies any suicidality or homicidality. She states she just needs her psych meds refilled. She is able answer all my questions here appropriately. ER Nursing Note: Upon discharge, patient began getting upset stating that she has to be admitted to the psych unit because she has no where to go, no money to pay for the meds, no car to get anywhere. I'm homeless and need to go to the psych unit now. and the doctor didn't do anything about my back. ED physician was notified and spoke with patient again. Mental health history: No prior psychiatric admissions. No record of outpatient treatment. Social history: The patient is reluctant to talk about her personal history other than her current problems and barriers to getting her needs met. She grew up in [place]. She had a sister with whom she was close who last year. With the assistance of social work assistant, we were able to find out that she had been in a mcc after she was diagnosed with cellulitis last fall and placed in the intensive care unit. Since that time, she has insisted that people help her to return to independent living. However she has sabotaged his efforts likely through her own obstinance and general attitude of refusal to do what she is told. She now finds herself homeless and without any means of support. Legal history: no history of criminal activity or arrest in [place] public record. Hospital Course Hospital Course Diagnoses: Adjustment disorder with disturbance of mood Assessment: Dalila Samuels is a sad disabled woman who finds herself in a situation in which she has become estranged from anyone that would provide assistance in accomplishing her goals of being released from the mcc in finding a place to live. She has the cognitive ability and the problem-solving skills to accomplish her tasks. That is exemplified by her ability to limit information provided to this provider such that is most likely to provide her with the medications which she desires. Unfortunately, she has personality issues that prevent her from interacting with available services will provide significant benefit in acquiring her goal of independent living. She has now lost her placement and is not capable of managing on her own partially due to the absence of services in the environment of a pandemic.. Treatment plan: Due to the psychiatric conditions and treatment listed in the Assessment and Plan - the patient is not an imminent risk to self or others and, in fact, is free of issues that require psychiatric attention at this time. Her psychosocial issues are considerable and it is reasonable to afford her access to the services available now that she is here. The patient was provided a supportive environment with availability for constant nursing service, social work consultation, and entered into the full array of individual and group therapies as part of the unit protocol. No medication changes were made. Her psychosocial situation was examined and a given history of effort by social work personnel to try and preserve access to services from which she had walked away. The patient universally rejected every suggestion and recommendation. She eventually found someone that would allow her to come from the hospital and live with them. She demanded to be discharged. Her wish was granted. Hospital Course Hospital Course She slowly acclimated to the individual, group and milieu therapies provided. She presented initially to the ICU secondary to a suicide attempt. After second consult and medical stability was achieved she was transferred to the neuropsychiatric unit. Wellbutrin XL 100 mg, trazodone and Vistaril were added as well. She has significant psychosocial stressors especially those involving housing to some degree. She had significant improvement during the stay and worked with the social work team to get connected with outpatient resources and solidify her living arrangement. She was able to contract for safety, outside of the hospital prior to discharge. During the hospitalization he had routine laboratory studies which were within normal limits except for few outliers.? Additionally had a general medical evaluation which was also within normal limits and revealed no new acute processes except for those involving the overdoses were handled in the ICU by the hospitalist. Discharge Summary At the time of discharge, she endorsed being absent lethality and psychosis.? Mood and anxiety were well managed.? Patient endorsed a plan to avoid any drugs of abuse and follow-up with services outside of the hospital per the treatment team recommendations.? Patient was evaluated and deemed absent credible lethality and had received the maximum benefit from an inpatient hospitalization, so she was discharged. Involuntary Hold Information 96 Hour Hold: 96 Hour Involuntary Admission: No Mental Status Exam MSE Comments: This is a obese white female who is older than her stated age in hospital scrubs with limited grooming and improving eye contact. No abnormal movements. Absent dentition. Cooperative with exam in no acute distress. Speech was more spontaneous and more normal rate and volume. Mood described as better, affect congruent. Process mostly organized. Thought content: Patient denied current suicidal or homicidal ideation, there were no delusions reported or noted, she denied any auditory or visual hallucinations. Attention and concentration are intact and memory was reliable with none formally tested. She alert and oriented x3. Insight, judgment and impulse control improving. Physical Exam Urinary Catheter Management: [place]: Cath Placed During This Visit: yes, but has since been removed by the nurse Reason for Continuing Indwelling Catheter: Accurate Measurement of Urinary Output in Critically Ill Patients Urinary Catheter Date of Insertion: 09/30/22 Urinary Catheter Time of Insertion: 17:56 Date Urinary Catheter Removed: 10/05/22 Time Urinary Catheter Discontinued: 11:09 Discharge Data Studies Completed and Pending: Completed Studies During Hospitalization Category Date Time Status CT head wo con* [id number] Stat Cat Scan 09/30/22 18:22 Completed XR abdomen 1V* [id number] Stat Exams 09/30/22 18:18 Completed XR chest 1V ryder ble [id number] Stat Exams 09/30/22 17:36 Completed Radiology Impressions Chest X-Ray 09/30/22 17:36 IMPRESSION: Mild patient rotation. Endotracheal catheter appears in good position approximately 2.5 cm above the level of the parag. Mild increased markings perihilar region and ill-defined opacity or infiltrate lower right lung. Findings likely represent pneumonia, though some component of pulmonary vascular congestion or edema not excluded. Correlate clinically. Abdomen X-Ray 09/30/22 18:18 IMPRESSION: An enteric tube is noted with the distal tip below the level of the diaphragm in the region of the stomach. Head CT 09/30/22 18:22 IMPRESSION: Stable appearance with prior exam June 04, 2022 as noted above, without acute intracranial abnormality. Laboratory Results WBC 9.8 10^3/uL (4.0- 10.0) 10/03/22 04:55 RBC 4.39 10^6/uL (4.1 -5.3) 10/03/22 04:55 Hgb 12.5 g/dL (11.5-1 5.3) 10/03/22 04:55 Hct 39.5 % (37.0-47.0 ) 10/03/22 04:55 MCV 90.0 fl (81-99) 10/03/22 04:55 MCH 28.5 pg (28.0-34. 0) 10/03/22 04:55 MCHC 31.6 g/dL (30.0-3 6.0) 10/03/22 04:55 RDW 14.4 % (12.1-15.1 ) 10/03/22 04:55 Plt Count 288 10^3/cmm (130 -400) 10/03/22 04:55 MPV 8.5 fL (7.4-10.4) 10/03/22 04:55 Neut % (Auto) 41.0 % 10/03/22 04:55 Lymph % (Auto) 47.3 % 10/03/22 04:55 [place] % (Auto) 8.9 % 10/03/22 04:55 Eos % (Auto) 1.8 % 10/03/22 04:55 Baso % (Auto) 0.3 % 10/03/22 04:55 Neut # (Auto) 4.02 10^3/uL (1.8 -7.7) 10/03/22 04:55 Lymph # (Auto) 4.6 10^3/uL (0.8- 4.8) 10/03/22 04:55 [place] # (Auto) 0.9 10^3/uL (0.2- 0.9) 10/03/22 04:55 Eos # (Auto) 0.2 10^3/uL (0.0- 0.8) 10/03/22 04:55 Baso # (Auto) 0.0 10^3/uL (0.0- 0.1) 10/03/22 04:55 Nucleated RBC % (a uto) 0 % 10/03/22 04:55 Nucleated RBCs # 0.0 /100WBC 10/03/22 04:55 Specimen Type Arterial 10/02/22 04:35 Sample Site Radial, right 10/02/22 04:35 ABG pH 7.41 (7.35-7.45) 10/02/22 04:35 ABG pCO2 42.5 mmHg (35-45) 10/02/22 04:35 ABG pO2 78.2 mmHg (80.0-1 00.0) L 10/02/22 04:35 ABG HCO3 27.1 mmol/L (22-2 6) H 10/02/22 04:35 ABG O2 Saturation 95.7 10/02/22 04:35 ABG Base Excess 2.2 mmol/L (-2.0- 2.0) H 10/02/22 04:35 Darryl Test Pos 10/02/22 04:35 A-a O2 Gradient 14.6 mmHg (5-10) H 10/02/22 04:35 Hematocrit 40.7 % (37-47) 10/02/22 04:35 Hgb O2 Saturation 93.4 % (95-100) L 10/02/22 04:35 Carboxyhemoglobin 1.4 %THgb (0.4-20 .1) 10/02/22 04:35 Methemoglobin 0.9 % (0.4-1.5) 10/02/22 04:35 Total Hemoglobin 13.3 g/dL (12-16) 10/02/22 04:35 Sodium 140.0 mmol/L (131 -143) 10/02/22 04:35 Potassium 3.8 mmol/L (3.5-5 .0) 10/02/22 04:35 Glucose 90.0 mg/dL (70-11 5) 10/02/22 04:35 Ionized Calcium 1.2 mmol/L (1.1-1 .4) 10/02/22 04:35 O2 Delivery Device Vent 10/02/22 04:35 FiO2 35.0 % 10/02/22 04:35 Tidal Volume 0.45 10/02/22 04:35 PEEP 5.0 cmH20 10/02/22 04:35 Slag Production Worker ID Rafael 10/02/22 04:35 Sodium 135 mmol/L (136-1 45) L 10/05/22 04:52 Potassium 4.4 mmol/L (3.5-5 .1) 10/03/22 04:55 Chloride 98 mmol/L (98-107 ) 10/03/22 04:55 Carbon Dioxide 25 mmol/L (22-29) 10/03/22 04:55 Anion Gap 14.4 (5-19) 10/03/22 04:55 BUN 7 mg/dL (8-23) L 10/03/22 04:55 Creatinine 0.6 mg/dL (0.5-0. 9) 10/03/22 04:55 GFR Calculation 102.0 mL/min (90- 130) 10/03/22 04:55 Glucose 147 mg/dL (65-115 ) H 10/03/22 04:55 POC Glucose 115 mg/dL (70-110 ) H 10/01/22 06:54 Calculated Osmolal ity 277 mOsm/kg (285- 295) L 10/03/22 04:55 Lactic Acid 0.9 mmol/L (0.5-2 .2) 10/01/22 02:36 Calcium 9.0 mg/dL (8.5-10 .5) 10/03/22 04:55 Magnesium 2.3 mg/dL (1.7-2. 3) 10/01/22 02:36 Total Bilirubin 0.4 mg/dL (0.15-1 .2) 10/05/22 04:52 Direct Bilirubin 0.20 mg/dL (0.00- 0.30) 10/05/22 04:52 AST 44 U/L (0-32) H 10/05/22 04:52 ALT 43 U/L (0-33) H 10/05/22 04:52 Alkaline Phosphata se 190 U/L (35-105) H 10/05/22 04:52 Troponin T Baselin e 9 ng/L (0-10) 09/30/22 17:45 Troponin T 120 Min nae 8.34 ng/L (0-10) 09/30/22 20:18 Delta Troponin T -0.66 ABS# (0-10) L 09/30/22 20:18 Troponin T Hi Sens 6Hr 9.46 ng/L (0-10) 09/30/22 23:09 Troponin T Hi Sens 6Hr Delta -1.12 ng/L (0-12) L 09/30/22 23:09 Total Protein 6.6 g/dL (6.6-8.7 ) 10/05/22 04:52 Albumin 3.4 g/dL (3.5-5.2 ) L 10/05/22 04:52 Globulin 3.2 g/dL (1.3-4.6 ) 10/05/22 04:52 Procalcitonin 0.08 ng/mL (0-0.5 ) 10/01/22 02:36 TSH 2.94 uIU/mL (0.27 -4.20) 09/30/22 17:45 Urine Color Yellow (Yellow) 09/30/22 18:04 Urine Appearance Clear (CLEAR) 09/30/22 18:04 Urine pH 6 (5-7) 09/30/22 18:04 Ur Specific Gravit y 1.020 (1.005-1.0 30) 09/30/22 18:04 Urine Protein Trace (Negative) 09/30/22 18:04 Urine Glucose (UA) Norm (Normal) 09/30/22 18:04 Urine Ketones Negative (Negati ve) 09/30/22 18:04 Urine Blood Neg (Negative) 09/30/22 18:04 Urine Nitrate Negative (Negati ve) 09/30/22 18:04 Urine Bilirubin Neg (Negative) 09/30/22 18:04 Urine Urobilinogen Norm mg/dL (Negat parveen) 09/30/22 18:04 Ur Leukocyte Rosie ase Negative (Negati ve) 09/30/22 18:04 Urine RBC 0-4 /hpf (0-2) H 09/30/22 18:04 Urine WBC 0-4 /hpf (0-5) H 09/30/22 18:04 Ur Squamous Epith Cells 0-4 /hpf (0-5) H 09/30/22 18:04 Amorphous Sediment Not Reportable 09/30/22 18:04 Urine Bacteria Trace /hpf (NONE) 09/30/22 18:04 Salicylates < 0.3 mg/dL (3-10 ) L 09/30/22 17:45 Urine Opiates Scre en Negative ng/mL (N egative) 09/30/22 18:04 Acetaminophen < 5.0 ug/mL (10-3 0) L 09/30/22 17:45 Ur Barbiturates Sc reen Negative ng/mL (N egative) 09/30/22 18:04 Ur Phencyclidine S crn Negative ng/mL (N egative) 09/30/22 18:04 Ur Amphetamines Sc reen Negative ng/mL (N egative) 09/30/22 18:04 U Benzodiazepines Scrn Positive ng/mL (N egative) H 09/30/22 18:04 Urine Cocaine Scre en Negative ng/mL (N egative) 09/30/22 18:04 U Marijuana (THC) Screen Negative ng/mL (N egative) 09/30/22 18:04 Ethyl Alcohol < 10 mg/dL (0-10) 09/30/22 17:45 Vitals: Last Vital Signs Temp 98.1 F 10/08/22 06:00 Pulse 73 10/08/22 06:00 Resp 15 10/08/22 06:00 BP 152/54 10/08/22 06:00 Pulse Ox 91 10/08/22 06:00 O2 Del Method 10/08/22 06:00 O2 Flow Rate 0 10/08/22 08:00 FiO2 30 10/02/22 11:03 Discharge Plan Discharge Patient Disposition: Home Condition: Stable Prescriptions: New bupropion HCl 150 mg Tablet Extended Release 24 Hr 150 mg PO DAILY 30 Days Qty: 30 1RF trazodone 100 mg tablet 50 mg PO BEDTIME PRN (Reason: Sleep) 30 Days Qty: 30 1RF hydroxyzine pamoate 25 mg Capsule 50 mg PO Q6H PRN (Reason: Anxiety) 30 Days Qty: 30 1RF Continued epinephrine [EpiPen 2-Reji] 0.3 mg/0.3 mL auto-injector 0.3 mg IM Q15M PRN (Reason: anaphylaxis) Qty: 2 0RF Rx Instructions: for 2 doses gabapentin 300 mg capsule 300 mg PO TID 30 Days Qty: 90 1RF omeprazole 40 mg capsule,delayed release(DR/EC) 40 mg PO DAILY Qty: 30 1RF albuterol sulfate 2.5 mg /3 mL (0.083 %) solution for nebulization 2.5 mg inhalation Q4H PRN (Reason: shortness of breath or wheezing) Qty: 180 5RF ibuprofen 800 mg tablet 800 mg PO BID PRN (Reason: pain) 30 Days Qty: 90 2RF Rx Instructions: WITH FOOD Anoro Ellipta 62.5-25 mcg/actuation blister with device 1 inh inhalation DAILY 30 Days Qty: 60 3RF lamotrigine 100 mg tablet 150 mg PO QAM Qty: 45 1RF meloxicam 7.5 mg Tablet 7.5 mg PO BID PRN (Reason: Pain) silver sulfadiazine 1 % Cream 1 applic TOPICAL DAILY PRN (Reason: unknown) Ventolin HFA 90 mcg/actuation HFA aerosol inhaler 1 puff inhalation QID PRN (Reason: shortness of breath or wheezing) fluoxetine 40 mg capsule 80 mg PO DAILY Qty: 60 1RF Rx Instructions: Take 40 mg daily for a week and then return to previous dose. gentamicin 0.1 % ointment 1 applic topical TID Qty: 30 0RF Discontinued promethazine 12.5 mg tablet 12.5 mg PO DAILY PRN (Reason: nausea and vomiting) 30 Days Qty: 30 1RF bupropion HCl 150 mg tablet sustained-release 12 hr 150 mg PO BID Qty: 60 1RF quetiapine 400 mg tablet 600 - 800 mg PO BEDTIME Qty: 60 1RF benzonatate 200 mg Capsule 200 mg PO BID PRN (Reason: Cough) Discharge Orders: Discharge Order (Routine); Ordered 10/08/22 Ordered By: Herber Louis Referrals: [facility] [Other] - 10/12/22 10:15 am (Appointment with Elmira Castro ) Prasad Rebollar MD [Primary Care Provider] - Discharge Diet: As Directed Discharge Activity: Resume usual activity Patient Instructions: Bupropion (By mouth) (Zyban, Wellbutrin XL, Wellbutrin SR, Wellbutrin), Trazodone (By mouth), Hydroxyzine (By mouth) (Vistaril), Help Prevent Suicide (GEN), Opioid Safety Discharge Attestations NPU Time Spent in Discharge Care*: less than 30 min Specific Discharge Activities: Specific discharge activities: educating patient, discussing with family caseworker/social workers/dc planners, documenting/other paperwork and evaluating patient/reviewing data Status at Discharge: Cognitive status at discharge: mildly impaired cognition , Behavioral status at discharge: cooperative , Coding Level of Care Code Acute Chg FW DC note Diagnoses Prolonged Q-T interval on ECG R94.31 Suicide attempt by multiple drug overdose T50.912A Hx of right BKA Z89.511 COPD (chronic obstructive pulmonary disease) J44.9 Schizoaffective disorder, bipolar type F25.0 Acute respiratory failure with hypoxia J96.01 Acute alteration in mental status R41.82 Aspiration pneumonia J69.0 Borderline personality disorder F60.3 Nicotine dependence, cigarettes, with other nicotine-induced disorders F17.218
[2022-10-08 14:23] VITALS: BP 152/54; PULSE 73; RESP 15; TEMP 36.7; O2SAT 91
== END 2022-10-08 16:24 | disposition home or self-care (01) | DRG 917 ==
LOC: ER 19:31 → ICU 20:08 → NP 10-05 18:01
PROVIDERS: Internal Medicine; Admitting Provider Internal Medicine; Emergency Provider Emergency Medicine; PCP Family Medicine; Visit Provider Family Medicine
DX: T43.592A Poisoning by other antipsychotics and neuroleptics, intentional self-harm, initial encounter (principal); G92.8 Other toxic encephalopathy; J69.0 Pneumonitis due to inhalation of food and vomit; J96.01 Acute respiratory failure with hypoxia; R45.851 Suicidal ideations; T43.222A Poisoning by selective serotonin reuptake inhibitors, intentional self-harm, initial encounter; J44.9 Chronic obstructive pulmonary disease, unspecified; I27.20 Pulmonary hypertension, unspecified; I73.9 Peripheral vascular disease, unspecified; Z89.511 Acquired absence of right leg below knee; F41.9 Anxiety disorder, unspecified; F60.3 Borderline personality disorder; K21.9 Gastro-esophageal reflux disease without esophagitis; B18.2 Chronic viral hepatitis C; F25.0 Schizoaffective disorder, bipolar type; F17.210 Nicotine dependence, cigarettes, uncomplicated; Z59.01 Sheltered homelessness; Z79.51 Long term (current) use of inhaled steroids; R94.31 Abnormal electrocardiogram [ECG] [EKG]
CPT/HCPCS: 31500; 36415; 36416; 36600; 51702; 70450; 71045; 74018; 80051; 80053; 80076; 80306; 80307; 81001; 82330; 82805; 82962; 83605; 83735; 84145; 84295; 84443; 84484; 85025; 87040; 87070; 87077; 87186; 87205; 93005; 94002; 94003; 94640; 94799; 96365; 96366; 96367; 96372; 97150; 97161; 97165; 97530; 99238; 99291; 99292; A4570; J1650; J2185; J2405; J2704; J2765; J3010; J3475; J3490; J7030

== ENCOUNTER → 2022-11-11 16:44 | Outpatient (BNVA) | payer MEDICAID, SELFPAY | PROVIDERS: PCP Family Medicine; Visit Provider Registered Nurse | DX: Z79.899 Other long term (current) drug therapy (principal) | CPT/HCPCS: 80306 ==

== ENCOUNTER → 2022-11-25 10:40 | Outpatient (BNVA) | payer MEDICAID, SELFPAY | PROVIDERS: PCP Family Medicine; Visit Provider Podiatrist Foot & Ankle Surgery | DX: M19.072 Primary osteoarthritis, left ankle and foot (principal); M25.572 Pain in left ankle and joints of left foot | CPT/HCPCS: 73610; 99213 ==

== ENCOUNTER → 2022-12-04 14:21 | Outpatient (BNVA) | payer MEDICAID, SELFPAY | PROVIDERS: PCP Family Medicine; Visit Provider Family Medicine | DX: G89.4 Chronic pain syndrome (principal); Z91.030 Bee allergy status; J41.0 Simple chronic bronchitis; F19.90 Other psychoactive substance use, unspecified, uncomplicated | CPT/HCPCS: 80074; 87522 ==

== ENCOUNTER → 2023-01-18 10:32 | Outpatient (BNVA) | payer MEDICAID, SELFPAY | PROVIDERS: PCP Family Medicine; Visit Provider Family Medicine | DX: B19.20 Unspecified viral hepatitis C without hepatic coma (principal) | CPT/HCPCS: 80053; 82977; 85025; 85610; 87806; 87902 ==

== ENCOUNTER → 2023-02-10 12:13 | Outpatient (BNVA) | payer MEDICAID, SELFPAY | PROVIDERS: PCP Family Medicine; Visit Provider Registered Nurse | DX: Z79.899 Other long term (current) drug therapy (principal) | CPT/HCPCS: 80061; 83036 ==

== ENCOUNTER 2023-03-19 08:36 | Emergency (ER) | payer MEDICAID, SELFPAY ==
[2023-03-19 08:40] VITALS: BP 134/88; PULSE 94; RESP 18; TEMP 36.8; O2SAT 98; BMI 37.9
--- NOTE | 2023-03-19 09:00 | XR_ITS ---
WS: [id number] Portable AP upright chest, 03/19/2023 Clinical Data: dyspnea/cough Comparison: Portable chest, 09/30/2022 Findings: No nodules, masses or effusions are seen. The heart is normal. The pulmonary vascularity is not increased. No pneumonia or pneumothorax is seen. The aortic arch and descending thoracic aorta a re tortuous. The diaphragms are flattened. There is degenerative change of the right shoulder. Impression: Atherosclerosis and hyperinflation.
--- NOTE | 2023-03-19 09:12 | ECG_ITS ---
[facility] Test Date: 2023-03-19 Pat Name: Dalila Samuels Department: Room: Gender: Female [employer]: : 1960 Requested By: Jasen Khan Order Number: [id number] Danae MD: Megan Todd M.D. Measurements Intervals Renick Rate: 87 P: 57 NE: 166 QRS: 32 QRSD: 101 T: 44 QT: 384 QTc: 464 Interpretive Statements SINUS RHYTHM LOW QRS VOLTAGE IN PRECORDIAL LEADS [QRS DEFLECTION < 1.0 mV IN CHEST LEADS] Compared to ECG 10/05/2022 08:41:00 Low QRS voltage now present Electronically Signed On 03-19-2023 14:20:44 CDT by Megan Todd M.D. [email or web address]
[2023-03-19 09:13] LABS: Basophils % 0.2 %; Eosinophils # 0.3 10^3/uL (0.0-0.8); Eosinophils % 2.5 %; Hemoglobin 13.3 g/dL (11.5-15.3); Lymphocytes # 1.8 10^3/uL (0.8-4.8); Lymphocytes % 14.7 %; Mean Corpuscular HGB Conc 32.4 g/dL (30.0-36.0); Mean Corpuscular Hemoglobin 29.3 pg (28.0-34.0); Mean Corpuscular Volume 90.3 fl (81-99); Mean Platelet Volume 8.7 fL (7.4-10.4); Monocytes # 0.9 10^3/uL (0.2-0.9); Monocytes % 7.3 %; Neutrophils % 74.6 %; Nucleated Red Blood Cells % 0 %; Platelet Count 318 10^3/cmm (130-400); Red Blood Count 4.54 10^6/uL (4.1-5.3); Red Cell Distribution Width 12.6 % (12.1-15.1); White Blood Count 12.1 10^3/uL (4.0-10.0)
--- NOTE | 2023-03-19 09:19 | W.ED.NAVMDI ---
HPI - Nausea/Vomiting/Diarrhea General: Chief complaint: Nausea/Vomiting/Diarrhea Stated complaint: n/v sob Time Seen by Provider: 03/19/23 09:00 Source: patient Mode of arrival: ambulatory History of Present Illness: 62-year-old female presents emergency room with nausea and vomiting that began this morning. Mild productive cough. No dysuria urgency or frequency she has been mildly short of breath denies chest pain. No fever sweats or chills, but subjectively reports she feels like she has had a fever. Patient is a smoker. Has a history of COPD. MD elicited complaint: nausea and vomiting Onset (ago): hour(s) Associated nausea: Yes Exacerbating factors: none Relieving factors: none Associated symtoms: Reports nausea; Denies anxiety, bloating, change in vision, chest pain, cough, decreased urine output, dizziness, dysuria, fecal incontinence, fevers/chills, headache(s), anorexia, myalgias, numbness, palpitations, rash, short of breath, tenesmus or weakness Review of Systems Const: Denies: fever(s) or chills Eyes: Denies: change in vision Card: Denies: chest pain or palpitations Resp: Reports: dyspnea, productive cough and wheezing; Denies: non-productive cough GI: Reports: nausea and vomiting; Denies: abdominal pain, bloating or fecal incontinence : Denies: dysuria, urinary frequency or urinary urgency Skin/Breast: Denies: rash or pruritus Neuro: Denies: headache(s) or dizziness Psych: Denies: anxiety PFSH ED PFSH: Medical History Altered mental status Amphetamine addiction Anxiety Aspiration of foreign body in respiratory tract Borderline personality disorder Cervical neuropathic pain Chronic idiopathic pain syndrome Chronic pain syndrome COPD (chronic obstructive pulmonary disease) COPD (chronic obstructive pulmonary disease) DDD (degenerative disc disease), cervical DJD (degenerative joint disease), lumbar GERD (gastroesophageal reflux disease) Hepatitis C, chronic History of intravenous drug abuse Interstitial lung disease Metabolic encephalopathy Opioid dependence, in remission Other stimulant dependence, in remission Partial small bowel obstruction Psychiatric care Pulmonary hypertension PVD (peripheral vascular disease) with claudication Respiratory failure with hypoxia Schizoaffective disorder, bipolar type Surgical History H/O tubal ligation Hx of BKA Hx of right BKA S/P cholecystectomy S/P tonsillectomy Family History Father Cancer lung Hypertension Diabetes Mother Hypertension Lung disease Diabetes Sister Diabetes Brother Diabetes Other CAD (coronary artery disease) Denies family history of Clotting disorder Dementia Hyperlipidemia Psychiatric illness Chronic kidney disease (CKD) Anesthesia complication Bleeding disorder Stroke Social History Smoking and tobacco status: current every day smoker (on chantix to help quit) cigarettes Years cigarettes smoked: 40 [ Other cigarette details: 1 pack per 6 days] Quit status (tobacco): has tried quititng Second hand smoke exposure: Yes Smoking risk assessment/counseling performed?: Yes Alcohol intake: former Counseling given: No Substance/Drug Use: former Date of last use: relapsed and overdosed around Sep, clean since then Counseling given: No Lives independently: Yes Household members: none Marital status: Current occupational status: disabled Do you think of yourself as: Straight/Heterosexual Current gender identity: Female Female Reproductive History: Spontaneous abortions: No Physical Exam Const: GENERAL APPEARANCE: cooperative and comfortable ORIENTATION/CONSCIOUSNESS: Yes awake, Yes oriented to person, Yes oriented to place and Yes oriented to time HENMT: COMMON NORMALS: normocephalic, atraumatic and hearing grossly normal bilaterally HEAD & SCALP: normocephalic and atraumatic Resp: COMMON NORMALS: normal respiratory effort, No retractions and No use of accessory muscles AUSCULTATION: rhonchi (Left base) Cardio: COMMON NORMALS: regular rate, regular rhythm and No murmurs present (Cardio) RATE: regular rate RHYTHM: regular rhythm GI: COMMON NORMALS: Soft to palpation and No hepatosplenomegaly present AUSCULTATION: Yes normoactive bowel sounds PALPATION: Yes Soft to palpation, No Tenderness to palpation present (GI), No Guarding due to palpation present (GI) and Yes No hepatosplenomegaly present Extremity: COMMON NORMALS: normal to inspection, capillary refill normal and no calf tenderness OTHER: Right lower leg surgically absent below the knee Neuro: SENSORIUM/ORIENTATION: Yes oriented to person, Yes oriented to place and Yes oriented to time Skin: COMMON NORMALS: no rashes or lesions noted GENERAL SKIN EXAM: no rashes or lesions noted Course Vital Signs: Vital signs: Vital Signs Temperature 98.2 F 03/19/23 08:40 Pulse Rate 98 03/19/23 13:31 Respiratory Rate 18 03/19/23 13:31 Blood Pressure 134/88 03/19/23 08:40 Pulse Oximetry 95 03/19/23 13:31 Oxygen Delivery Me thod Room Air 03/19/23 11:55 MDM - Nausea/Vomiting/Diarrhea Medical Decision Making Nausea vomiting improved and went back to check on the patient sitter now her biggest problem is her breathing she improved after a DuoNeb we will discharge her home promethazine as needed encourage regular use of her DuoNebs. hyperinflation but no evidence of infiltrate on chest x-ray we did not prescribe any antibiotics. Medical Records I reviewed the patient's medical records. Lab Data I reviewed the patient's lab results. 03/19/23 08:49 03/19/23 08:49 Laboratory Results WBC 12.1 10^3/uL (4.0-10.0) H 03/19/23 08:49 RBC 4.54 10^6/uL (4.1-5.3) 03/19/23 08:49 Hgb 13.3 g/dL (11.5-15.3) 03/19/23 08:49 Hct 41.0 % (37.0-47.0) 03/19/23 08:49 MCV 90.3 fl (81-99) 03/19/23 08:49 MCH 29.3 pg (28.0-34.0) 03/19/23 08:49 MCHC 32.4 g/dL (30.0-36.0) 03/19/23 08:49 RDW 12.6 % (12.1-15.1) 03/19/23 08:49 Plt Count 318 10^3/cmm (130-400) 03/19/23 08:49 MPV 8.7 fL (7.4-10.4) 03/19/23 08:49 Neut % (Auto) 74.6 % 03/19/23 08:49 Lymph % (Auto) 14.7 % 03/19/23 08:49 [place] % (Auto) 7.3 % 03/19/23 08:49 Eos % (Auto) 2.5 % 03/19/23 08:49 Baso % (Auto) 0.2 % 03/19/23 08:49 Neut # (Auto) 9.00 10^3/uL (1.8-7.7) H 03/19/23 08:49 Lymph # (Auto) 1.8 10^3/uL (0.8-4.8) 03/19/23 08:49 [place] # (Auto) 0.9 10^3/uL (0.2-0.9) 03/19/23 08:49 Eos # (Auto) 0.3 10^3/uL (0.0-0.8) 03/19/23 08:49 Baso # (Auto) 0.0 10^3/uL (0.0-0.1) 03/19/23 08:49 Nucleated RBC % (auto) 0 % 03/19/23 08:49 Nucleated RBCs # 0.0 /100WBC 03/19/23 08:49 Sodium 139 mmol/L (136-145) 03/19/23 08:49 Potassium 4.3 mmol/L (3.5-5.1) 03/19/23 08:49 Chloride 103 mmol/L (98-107) 03/19/23 08:49 Carbon Dioxide 25 mmol/L (22-29) 03/19/23 08:49 Anion Gap 15.3 (5-19) 03/19/23 08:49 BUN 11 mg/dL (8-23) 03/19/23 08:49 Creatinine 0.7 mg/dL (0.5-0.9) 03/19/23 08:49 GFR Calculation 85.4 mL/min (90-130) L 03/19/23 08:49 Glucose 119 mg/dL (65-115) H 03/19/23 08:49 Calculated Osmolality 289 mOsm/kg (285-295) 03/19/23 08:49 Calcium 9.4 mg/dL (8.5-10.5) 03/19/23 08:49 Total Bilirubin 0.3 mg/dL (0.15-1.2) 03/19/23 08:49 AST 26 U/L (0-32) 03/19/23 08:49 ALT 26 U/L (0-33) 03/19/23 08:49 Alkaline Phosphatase 141 U/L (35-105) H 03/19/23 08:49 Total Protein 7.2 g/dL (6.6-8.7) 03/19/23 08:49 Albumin 4.3 g/dL (3.5-5.2) 03/19/23 08:49 Globulin 2.9 g/dL (1.3-4.6) 03/19/23 08:49 Lipase 30 U/L (13-60) 03/19/23 08:49 Urine Color Yellow (Yellow) 03/19/23 11:41 Urine Appearance Clear (CLEAR) 03/19/23 11:41 Urine pH 7 (5-7) 03/19/23 11:41 Ur Specific [place] 1.005 (1.005-1.030) 03/19/23 11:41 Urine Protein Neg (Negative) 03/19/23 11:41 Urine Glucose (UA) Norm (Normal) 03/19/23 11:41 Urine Ketones 1+ (Negative) H 03/19/23 11:41 Urine Blood Neg (Negative) 03/19/23 11:41 Urine Nitrate Negative (Negative) 03/19/23 11:41 Urine Bilirubin Neg (Negative) 03/19/23 11:41 Urine Urobilinogen 8 mg/dL (Negative) H 03/19/23 11:41 Ur Leukocyte Esterase Negative (Negative) 03/19/23 11:41 Discharge Plan Discharge Patient Disposition: Home Clinical Impression: Acute exacerbation of chronic obstructive pulmonary disease, Nausea & vomiting Condition: Stable Prescriptions: New promethazine 25 mg tablet 25 mg PO Q6H PRN (Reason: nausea and vomiting) Qty: 20 0RF Medrol (Reji) 4 mg tablets,dose pack See Rx Instructions .ROUTE .COMPLEX Qty: 21 0RF Rx Instructions: orally per package directions ipratropium-albuterol 0.5 mg-3 mg(2.5 mg base)/3 mL solution for nebulization 3 ml inhalation Q6H PRN (Reason: shortness of breath or wheezing) Qty: 90 0RF No Action epinephrine [EpiPen 2-Reji] 0.3 mg/0.3 mL auto-injector 0.3 mg IM Q15M PRN (Reason: anaphylaxis) Qty: 2 0RF Rx Instructions: for 2 doses gabapentin 300 mg capsule 300 mg PO TID 90 Days Qty: 270 1RF (DME) RIGHT BTK prosthetic with supplies See Rx Instructions .Route .MEDSUPPLY Qty: 1 0RF Rx Instructions: As directed Anoro Ellipta 62.5-25 mcg/actuation blister with device 1 inh inhalation DAILY 30 Days Qty: 60 3RF cyclobenzaprine 10 mg tablet 10 mg PO TID PRN (Reason: muscle spasm) Qty: 90 0RF (DME) Rollaid with chair See Rx Instructions .Route .MEDSUPPLY Qty: 1 0RF Rx Instructions: As directed (DME) nebulizer and supplies See Rx Instructions .Route .MEDSUPPLY Qty: 1 0RF Rx Instructions: As directed ondansetron 4 mg tablet,disintegrating 4 mg PO Q8H PRN (Reason: nausea and vomiting) Qty: 60 1RF albuterol sulfate 2.5 mg /3 mL (0.083 %) solution for nebulization 2.5 mg inhalation Q4H PRN (Reason: shortness of breath or wheezing) Qty: 180 5RF ipratropium-albuterol 0.5 mg-3 mg(2.5 mg base)/3 mL solution for nebulization 3 ml inhalation QID PRN (Reason: wheezing) Qty: 90 2RF albuterol sulfate [Ventolin HFA] 90 mcg/actuation HFA aerosol inhaler 1 puff inhalation QID PRN (Reason: shortness of breath or wheezing) fluoxetine 40 mg capsule 80 mg PO QAM bupropion HCl 150 mg tablet extended release 24 hr 150 mg PO QAM meloxicam 15 mg tablet 15 mg PO QAM omeprazole 40 mg capsule,delayed release(DR/EC) 40 mg PO QAM lamotrigine 100 mg tablet 150 mg PO QAM quetiapine 400 mg tablet 400 mg PO BEDTIME Rx Instructions: ONLY FILL ONE WEEK AT A TIME. varenicline 1 mg tablet 1 mg PO BID Discharge Orders: Discharge ED (Routine); Ordered 03/19/23 Ordered By: Jasen Galeano Referrals: Prasad Rebollar MD [Primary Care Provider] - Discharge Diet: Usual diet Discharge Activity: Increase activity as tolerated Patient Instructions: COPD (Chronic Obstructive Pulmonary Disease) (ED), Acute Nausea and Vomiting (ED), Opioid Safety, Pain Management Coding Level of Care Code ED [employer] Administrator for Dorcas Oliver
[2023-03-19 09:32] LABS: Alanine Aminotransferase 26 U/L (0-33); Albumin Level 4.3 g/dL (3.5-5.2); Alkaline Phosphatase 141 U/L (35-105); Anion Gap 15.3 (5-19); Aspartate Amino Transferase 26 U/L (0-32); Blood Urea Nitrogen 11 mg/dL (8-23); Calcium 9.4 mg/dL (8.5-10.5); Carbon Dioxide 25 mmol/L (22-29); Chloride 103 mmol/L (98-107); Globulin 2.9 g/dL (1.3-4.6); Glomerular Filtration Rate 85.4 mL/min (90-130); Glucose 119 mg/dL (65-115); Lipase 30 U/L (13-60); Osmolality Calculated 289 mOsm/kg (285-295); Potassium 4.3 mmol/L (3.5-5.1); Sodium 139 mmol/L (136-145); Total Bilirubin 0.3 mg/dL (0.15-1.2); Total Protein 7.2 g/dL (6.6-8.7)
[2023-03-19] MEDS: ondansetron 2 mg/ML SDV 2 mL 4 MG IVP (11:17)
[2023-03-19] MEDS: sodium chloride 0.9% 1,000 ML 999 ML IV (11:17)
[2023-03-19 11:19] VITALS: PULSE 80; RESP 18; O2SAT 95
[2023-03-19 11:52] LABS: Add Urine Microscopic? NO; Charge for UA Resulting for Rev
[2023-03-19 11:55] VITALS: PULSE 88; RESP 18; O2SAT 94
[2023-03-19] MEDS: ipratropium-albuterol 3 mL Neb INHALATION (11:57)
[2023-03-19 11:59] LABS: Bilirubin Urine Neg (Negative); Blood Urine Neg (Negative); Glucose Urine UA Norm (Normal); Ketones Urine 1+ (Negative); Leukocyte Esterase Urine Negative (Negative); Nitrate Urine Negative (Negative); Protein Urine Neg (Negative); Specific Gravity, Urine 1.005 (1.005-1.030); Urine Appearance Clear (CLEAR); Urine Color Yellow (Yellow); Urobilinogen Urine 8 mg/dL (Negative); pH Urine 7 (5-7)
[2023-03-19 12:05] VITALS: PULSE 79
[2023-03-19 13:31] VITALS: PULSE 98; RESP 18; O2SAT 95
== END 2023-03-19 13:32 | disposition home or self-care (01) ==
PROVIDERS: Emergency Provider Family Medicine; PCP Family Medicine
DX: J44.1 Chronic obstructive pulmonary disease with (acute) exacerbation (principal); R11.2 Nausea with vomiting, unspecified; F17.210 Nicotine dependence, cigarettes, uncomplicated; Z89.511 Acquired absence of right leg below knee; Z86.19 Personal history of other infectious and parasitic diseases
CPT/HCPCS: 51701; 71045; 80053; 81003; 83690; 85025; 93005; 94640; 96374; 99285; J2405; J7030

== ENCOUNTER → 2023-03-29 13:55 | Outpatient (BNVA) | payer MEDICAID, SELFPAY | PROVIDERS: PCP Family Medicine; Visit Provider Podiatrist Foot & Ankle Surgery | DX: M19.072 Primary osteoarthritis, left ankle and foot | CPT/HCPCS: 99213 ==

== ENCOUNTER 2023-04-23 20:39 | Inpatient (IN) | payer MEDICAID, SELFPAY ==
[2023-04-23 20:42] VITALS: BP 138/80; PULSE 58; RESP 16; TEMP 36.7; O2SAT 93; BMI 33.4
--- NOTE | 2023-04-23 21:09 | ECG_ITS ---
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 Measurements Intervals [place] Rate: 56 P: 52 WV: 152 QRS: 25 QRSD: 101 T: 41 QT: 463 QTc: 450 Interpretive Statements SINUS BRADYCARDIA Compared to ECG 03/19/2023 09:12:53 Sinus rhythm no longer present Electronically Signed On 04-24-2023 7:12:03 CDT by Abhishek Perkins M.D. [id number]
--- NOTE | 2023-04-23 21:26 | PC.NURSE ---
Pt. states that she prefers to use a bed mota to collect her urine sample. I have placed bed mota under patient and she is attempting to give a urine sample.
--- NOTE | 2023-04-23 21:30 | W.ED.GENADLT ---
HPI - General Adult General: Chief complaint: General Medical Stated complaint: DRUG USE Time Seen by Provider: 04/23/23 20:46 History of Present Illness: [facility] I spoke to the paramedics. They know her well. This is her third EMS run in as many days. She was transported Wednesday morning and morning to [facility]. She was reportedly diagnosed with methamphetamine intoxication based on their report. One of the paramedics knows the patient from years of transporting her. He is known her in the past for chronic pain syndrome, prescription drug seeking. The patient is hyperactive and restless on arrival. EMS states they had to give 5 of Versed during transport for psychomotor agitation. Patient is a poor historian. She does not remember the month or the year. She says she cannot breathe and appears to be having a panic attack. She is intermittently blinking her eyes twitching in her cheeks smacking her lips rolling her head, staring around wild eyed. When asked why she is here. She has no answer. She then suddenly exclaims that she remembers feeling sick to her stomach. She thinks she called the ambulance. On arrival she was saying she felt hot and was naked. She was fanning herself and saying that she feels a little nauseated. EMS says this is the same type of presentation she has had the last 2 days. Review of Systems General: Reports: ROS unobtainable due to medical condition and ROS unobtainable due to mental status [facility] ED PFS: Medical History (Updated 04/20/23 @ 07:51 by Prasad Rebollar MD) Altered mental status Amphetamine addiction Anxiety Aspiration of foreign body in respiratory tract Borderline personality disorder Cervical neuropathic pain Chronic idiopathic pain syndrome Chronic pain syndrome COPD (chronic obstructive pulmonary disease) COPD (chronic obstructive pulmonary disease) Cough DDD (degenerative disc disease), cervical DJD (degenerative joint disease), lumbar GERD (gastroesophageal reflux disease) Hepatitis C, chronic History of intravenous drug abuse Interstitial lung disease Metabolic encephalopathy Opioid dependence, in remission Other stimulant dependence, in remission Partial small bowel obstruction Psychiatric care Pulmonary hypertension PVD (peripheral vascular disease) with claudication Respiratory failure with hypoxia Schizoaffective disorder, bipolar type Surgical History H/O tubal ligation Hx of BKA Hx of right BKA S/P cholecystectomy S/P tonsillectomy Family History Father Cancer lung Hypertension Diabetes Mother Hypertension Lung disease Diabetes Sister Diabetes Brother Diabetes Other CAD (coronary artery disease) Denies family history of Clotting disorder Dementia Hyperlipidemia Psychiatric illness Chronic kidney disease (CKD) Anesthesia complication Bleeding disorder Stroke Social History Smoking and tobacco status: current every day smoker (on chantix to help quit) cigarettes Years cigarettes smoked: 40 [ Other cigarette details: 1 pack per 6 days] Quit status (tobacco): has tried quititng Second hand smoke exposure: Yes Smoking risk assessment/counseling performed?: Yes Alcohol intake: former Counseling given: No Substance/Drug Use: former Date of last use: relapsed and overdosed around Sep, since then Counseling given: No Lives independently: Yes Household members: none Marital status: Current occupational status: disabled Do you think of yourself as: Straight/Heterosexual Current gender identity: Female Female Reproductive History: Spontaneous abortions: No Physical Exam Narrative: EXAM NARRATIVE: Patient is alert, disoriented, anxious, flight of ideas, psychomotor agitation with significant restlessness. She claims she cannot breathe but her lung sounds are clear. Her abdomen is soft, nontender, obese, no guarding. Her heart rate is normal and her peripheral pulses are normal. Her pupils are not significantly dilated. They are equal round and reactive. There is no signs of facial or head trauma. Range of motion in the neck is normal with no meningeal signs. Her skin is warm and well-perfused. She has a right below the knee amputation. She is moving all extremities normally. Muscle tone is normal. No tremors. No jaundice. No petechiae. Mucous membranes are tacky. Course Vital Signs: Vital signs: Vital Signs Temperature 98.0 F 04/23/23 20:42 Pulse Rate 58 L 04/23/23 20:42 Respiratory Rate 16 04/23/23 20:42 Blood Pressure 138/80 04/23/23 20:42 Pulse Oximetry 93 04/23/23 20:42 Oxygen Delivery Me thod Room Air 04/23/23 20:42 MDM - General Adult Medical Decision Making Patient presents with psychomotor agitation and apparent altered mental status. Patient will get a medical screening examination and screening. We have requested labs from [facility]. I had originally ordered Geodon and Cogentin to help facilitate being able to get blood work and urine. However about 30 minutes after arrival, she suddenly just fell asleep. Her heart rate came down and we no longer needed this medication. It sounds like she has been up for several days. At this time we will let her sleep while running her blood work. We will have to get urine eventually as part of the medical screening examination. EKG was obtained and shows a sinus bradycardia, rate 56, normal axis, normal intervals, no concerning ST segment elevations or depressions, no ectopy. Patient has a white blood cell count of 10,000, normal hemoglobin, slightly elevated platelets. She has a chronic transaminitis and elevated alkaline phosphatase. She has a widened anion gap with metabolic acidosis and ketones in her urine. Glucose is less than 150. Unlikely to be diabetic ketoacidosis. Urobilinogen in the urine is likely more from dehydration. No signs of UTI. Urine drug screen is positive for benzodiazepines which she received in transport. It is not positive for amphetamines or other drugs. Salicylates and acetaminophen negative. I am going to go ahead and do a CT scan of her head as part of her altered mental status work-up. Patient is resting comfortably at this time and has normal vital signs. As long as her CT scan is negative, the plan is to allow her to rest tonight and reassess in the morning. It is unclear whether she is taking some substance which is not showing up on our drug screen or whether she has psychosis. No evidence of infectious encephalopathy. No evidence of meningitis. No UTI. No abdominal tenderness. Patient will be handed off at the end of my shift and be reassessed in a few hours after she is gotten some sleep. Lab Data 04/23/23 21:14 04/23/23 21:14 Laboratory Results WBC 10.34 10^3/uL (3.29-11.43) 04/23/23 21:14 RBC 4.57 10^6/uL (3.85-5.65) 04/23/23 21:14 Hgb 13.40 g/dL (11.27-16.99) 04/23/23 21:14 Hct 40.0 % (36-47) 04/23/23 21:14 MCV 87.5 fl (85-98) 04/23/23 21:14 MCH 29.3 pg (27-33) 04/23/23 21:14 MCHC 33.5 g/dL (30-55) 04/23/23 21:14 RDW 12.2 % (12.1-15.1) 04/23/23 21:14 Plt Count 406 10^3/cmm (157-399) H 04/23/23 21:14 MPV 8.6 fL (7.4-10.4) 04/23/23 21:14 Neut % (Auto) 73.9 % 04/23/23 21:14 Lymph % (Auto) 15.2 % 04/23/23 21:14 [place] % (Auto) 7.3 % 04/23/23 21:14 Eos % (Auto) 0.7 % 04/23/23 21:14 Baso % (Auto) 0.6 % 04/23/23 21:14 Neut # (Auto) 7.65 10^3/uL (1.8-7.7) 04/23/23 21:14 Lymph # (Auto) 1.6 10^3/uL (0.8-4.8) 04/23/23 21:14 [place] # (Auto) 0.8 10^3/uL (0.2-0.9) 04/23/23 21:14 Eos # (Auto) 0.1 10^3/uL (0.0-0.8) 04/23/23 21:14 Baso # (Auto) 0.1 10^3/uL (0.0-0.1) 04/23/23 21:14 Nucleated RBC % (auto) 0 % 04/23/23 21:14 Nucleated RBCs # 0.0 /100WBC 04/23/23 21:14 Sodium 142 mmol/L (136-145) 04/23/23 21:14 Potassium 3.6 mmol/L (3.5-5.1) 04/23/23 21:14 Chloride 106 mmol/L (98-107) 04/23/23 21:14 Carbon Dioxide 20 mmol/L (22-29) L 04/23/23 21:14 Anion Gap 19.6 (5-19) H 04/23/23 21:14 BUN 12 mg/dL (8-23) 04/23/23 21:14 Creatinine 0.4 mg/dL (0.5-0.9) L 04/23/23 21:14 GFR Calculation 162.3 mL/min (90-130) H 04/23/23 21:14 Glucose 130 mg/dL (65-115) H 04/23/23 21:14 Calculated Osmolality 296 mOsm/kg (285-295) H 04/23/23 21:14 Calcium 9.4 mg/dL (8.5-10.5) 04/23/23 21:14 Total Bilirubin 0.5 mg/dL (0.15-1.2) 04/23/23 21:14 AST 53 U/L (0-32) H 04/23/23 21:14 ALT 48 U/L (0-33) H 04/23/23 21:14 Alkaline Phosphatase 191 U/L (35-105) H 04/23/23 21:14 Total Protein 7.3 g/dL (6.6-8.7) 04/23/23 21:14 Albumin 3.8 g/dL (3.5-5.2) 04/23/23 21:14 Globulin 3.5 g/dL (1.3-4.6) 04/23/23 21:14 TSH 0.36 uIU/mL (0.27-4.20) 04/23/23 21:14 Urine Color Yellow (Yellow) 04/23/23 21:40 Urine Appearance Clear (CLEAR) 04/23/23 21:40 Urine pH 6 (5-7) 04/23/23 21:40 Ur Specific [place] 1.020 (1.005-1.030) 04/23/23 21:40 Urine Protein 1+ (Negative) H 04/23/23 21:40 Urine Glucose (UA) Norm (Normal) 04/23/23 21:40 Urine Ketones 3+ (Negative) H 04/23/23 21:40 Urine Blood Neg (Negative) 04/23/23 21:40 Urine Nitrate Negative (Negative) 04/23/23 21:40 Urine Bilirubin 1+ (Negative) H 04/23/23 21:40 Urine Urobilinogen 4+ mg/dL (Negative) H 04/23/23 21:40 Ur Leukocyte Esterase Trace (Negative) H 04/23/23 21:40 Urine RBC Rare /hpf (0-2) 04/23/23 21:40 Urine WBC 0-4 /hpf (0-5) H 04/23/23 21:40 Ur Squamous Epith Cells Rare /hpf (0-5) 04/23/23 21:40 Amorphous Sediment 1+ /hpf 04/23/23 21:40 Urine Bacteria None /hpf (NONE) 04/23/23 21:40 Urine Mucus 3+ /hpf 04/23/23 21:40 Salicylates 1.5 mg/dL (3-10) L 04/23/23 21:14 Urine Opiates Screen Negative ng/mL (Negative) 04/23/23 21:40 Acetaminophen < 5.0 ug/mL (10-30) L 04/23/23 21:14 Ur Barbiturates Screen Negative ng/mL (Negative) 04/23/23 21:40 Ur Phencyclidine Scrn Negative ng/mL (Negative) 04/23/23 21:40 Ur Amphetamines Screen Negative ng/mL (Negative) 04/23/23 21:40 U Benzodiazepines Scrn Positive ng/mL (Negative) H 04/23/23 21:40 Urine Cocaine Screen Negative ng/mL (Negative) 04/23/23 21:40 U Marijuana (THC) Screen Negative ng/mL (Negative) 04/23/23 21:40 Ethyl Alcohol < 10 mg/dL (0-10) 04/23/23 21:14 XR interpretation done by ED provider, pending radiology final review (CT scan of the head is pending. Has not yet been performed) Discharge Plan Discharge Condition: Stable Prescriptions: No Action epinephrine [EpiPen 2-Reji] 0.3 mg/0.3 mL auto-injector 0.3 mg IM Q15M PRN (Reason: anaphylaxis) Qty: 2 0RF Rx Instructions: for 2 doses gabapentin 300 mg capsule 300 mg PO TID 90 Days Qty: 270 1RF albuterol sulfate [Ventolin HFA] 90 mcg/actuation HFA aerosol inhaler 1 puff inhalation QID PRN (Reason: shortness of breath or wheezing) Qty: 8.5 3RF benzonatate 200 mg capsule 200 mg PO BID PRN (Reason: cough) Qty: 60 0RF lamotrigine 200 mg tablet 200 mg PO QAM Qty: 30 0RF quetiapine 400 mg tablet 400 mg PO BEDTIME Qty: 7 6RF Rx Instructions: ONLY FILL ONE WEEK AT A TIME. ipratropium-albuterol 0.5 mg-3 mg(2.5 mg base)/3 mL solution for nebulization 3 ml inhalation QID PRN (Reason: wheezing) Qty: 90 2RF meloxicam 15 mg tablet 15 mg PO QAM Qty: 90 1RF (DME) RIGHT BTK prosthetic with supplies See Rx Instructions .Route .MEDSUPPLY Qty: 1 0RF Rx Instructions: As directed Anoro Ellipta 62.5-25 mcg/actuation blister with device 1 inh inhalation DAILY 30 Days Qty: 60 3RF cyclobenzaprine 10 mg tablet 10 mg PO TID PRN (Reason: muscle spasm) Qty: 90 0RF (DME) Rollaid with chair See Rx Instructions .Route .MEDSUPPLY Qty: 1 0RF Rx Instructions: As directed (DME) nebulizer and supplies See Rx Instructions .Route .MEDSUPPLY Qty: 1 0RF Rx Instructions: As directed ondansetron 4 mg tablet,disintegrating 4 mg PO Q8H PRN (Reason: nausea and vomiting) Qty: 60 1RF albuterol sulfate 2.5 mg /3 mL (0.083 %) solution for nebulization 2.5 mg inhalation Q4H PRN (Reason: shortness of breath or wheezing) Qty: 180 5RF Victoza 3-Reji 0.6 mg/0.1 mL (18 mg/3 mL) pen injector See Rx Instructions SUBCUT .COMPLEX Qty: 9 2RF Rx Instructions: inject 0.6mg subcutaneously once daily x 7 days; then 1.2mg daily fluoxetine 40 mg capsule 80 mg PO QAM bupropion HCl 150 mg tablet extended release 24 hr 150 mg PO QAM omeprazole 40 mg capsule,delayed release(DR/EC) 40 mg PO QAM varenicline 1 mg tablet 1 mg PO BID promethazine 25 mg tablet 25 mg PO Q6H PRN (Reason: nausea and vomiting) Qty: 20 0RF Referrals: Prasad Rebollar MD [Primary Care Provider] - Coding Level of Care Code ED Director Money for [employer]
[2023-04-23 21:34] LABS: Basophils # 0.1 10^3/uL (0.0-0.1); Basophils % 0.6 %; Eosinophils # 0.1 10^3/uL (0.0-0.8); Eosinophils % 0.7 %; Lymphocytes # 1.6 10^3/uL (0.8-4.8); Lymphocytes % 15.2 %; Mean Corpuscular HGB Conc 33.5 g/dL (30-55); Mean Corpuscular Hemoglobin 29.3 pg (27-33); Mean Corpuscular Volume 87.5 fl (85-98); Mean Platelet Volume 8.6 fL (7.4-10.4); Monocytes # 0.8 10^3/uL (0.2-0.9); Monocytes % 7.3 %; Neutrophils # 7.65 10^3/uL (1.8-7.7); Neutrophils % 73.9 %; Nucleated Red Blood Cells % 0 %; Platelet Count 406 10^3/cmm (157-399); Red Blood Count 4.57 10^6/uL (3.85-5.65); Red Cell Distribution Width 12.2 % (12.1-15.1); White Blood Count 10.34 10^3/uL (3.29-11.43)
[2023-04-23 22:02] LABS: Alanine Aminotransferase 48 U/L (0-33); Albumin Level 3.8 g/dL (3.5-5.2); Alkaline Phosphatase 191 U/L (35-105); Anion Gap 19.6 (5-19); Aspartate Amino Transferase 53 U/L (0-32); Blood Urea Nitrogen 12 mg/dL (8-23); Calcium 9.4 mg/dL (8.5-10.5); Carbon Dioxide 20 mmol/L (22-29); Chloride 106 mmol/L (98-107); Globulin 3.5 g/dL (1.3-4.6); Glomerular Filtration Rate 162.3 mL/min (90-130); Glucose 130 mg/dL (65-115); Osmolality Calculated 296 mOsm/kg (285-295); Potassium 3.6 mmol/L (3.5-5.1); Salicylate 1.5 mg/dL (3-10); Sodium 142 mmol/L (136-145); Thyroid Stimulating Hormone 0.36 uIU/mL (0.27-4.20); Total Bilirubin 0.5 mg/dL (0.15-1.2); Total Protein 7.3 g/dL (6.6-8.7)
[2023-04-23 22:03] LABS: Acetaminophen < 5.0 ug/mL (10-30); Alcohol Level < 10 mg/dL (0-10)
[2023-04-23 22:09] LABS: Amphetamines Screen Urine Negative (Negative); Barbiturates Screen Urine Negative (Negative); Benzodiazepines Screen Urine Positive (Negative); Cocaine Screen Urine Negative (Negative); Opiate Screen Urine Negative (Negative); PCP Screen Urine Negative (Negative); THC Screen Urine Negative (Negative)
[2023-04-23 22:10] LABS: Urine Appearance Clear (CLEAR); Urine Color Yellow (Yellow); pH Urine 6 (5-7)
[2023-04-23 22:11] LABS: Add Urine Microscopic? YES; Bilirubin Urine 1+ (Negative); Blood Urine Neg (Negative); Glucose Urine UA Norm (Normal); Ketones Urine 3+ (Negative); Leukocyte Esterase Urine Trace (Negative); Nitrate Urine Negative (Negative); Protein Urine 1+ (Negative); Urobilinogen Urine 4+ mg/dL (Negative)
[2023-04-23 22:12] LABS: Add Urine Culture? No; Amorphous Sediment Urine 1+ /hpf; Mucus Urine 3+ /hpf; RBC Urine RARE /hpf (0-2); Squamous Epithelial Cell Urine RARE /hpf (0-5); WBC Urine 0-4 /hpf (0-5)
--- NOTE | 2023-04-23 22:14 | PC.NURSE ---
Pt. resting in bed quietly. Pt. has no complaints and has been cooperative and agreeable with staff.
--- NOTE | 2023-04-23 22:29 | CTR_ITS ---
PROCEDURE INFORMATION: Exam: CT Head Without Contrast Exam date and time: 04/23/2023 10:37 PM Age: 63 years old Clinical indication: Altered mental status/memory loss; Patient HX: AMS. Confusion. TECHNIQUE: Imaging protocol: Computed tomography of the head without contrast. Radiation optimization: All CT scans at this facility use at least one of these dose optimization techniques: automated exposure control; mA and/or kV adjustment per patient size (includes targeted exams where dose is matched to clinical indication); or iterative reconstruction. REPORTING DATA: Count of CT and Cardiac NM exams in prior 12 months: This patient has received 3 known CTs and 0 known cardiac nuclear medicine studies in the 12 months prior to the current study. COMPARISON: CT head wo con* [id number] 09/30/2022 9:16 PM RADIATION DOSE METRICS: Total DLP (mGy-cm): 1031.08 FINDINGS: Brain: No acute intracranial abnormality. Subcortical and periventricular white matter changes consistent with small-vessel ischemic disease in the appropriate clinical setting. Small-vessel ischemic disease. Hyperdensity in the medial aspect of the left temporal lobe is redemonstrated and similar in size and appearance to the prior head CT dated 09/30/2022. Cerebral ventricles: No ventriculomegaly. Paranasal sinuses: Visualized sinuses are unremarkable. No fluid levels. Mastoid air cells: Visualized mastoid air cells are well aerated. Bones/joints: Unremarkable. No acute fracture. Soft tissues: Unremarkable. CT/CT head wo con* [id number] IMPRESSION: 1. No acute intracranial abnormality. 2. Small-vessel ischemic disease.
[2023-04-24] VITALS (8 sets, daily range): BP systolic 111–159; BP diastolic 60–100; PULSE 54–108; RESP 18–20; TEMP 36.8–36.9; O2SAT 94–98
--- NOTE | 2023-04-24 07:43 | PC.PHAR ---
medications verified using external med list and medications brought in by pt
--- NOTE | 2023-04-24 13:05 | CTR_ITS ---
PROCEDURE INFORMATION: Exam: CT Abdomen And Pelvis Without Contrast Exam date and time: 04/24/2023 1:35 PM Age: 63 years old Clinical indication: Abdominal pain; Acute; Prior surgery; Surgery date: 6+ months; Surgery type: Gb; Additional info: Possible hepatic encephalopathy TECHNIQUE: Imaging protocol: Computed tomography of the abdomen and pelvis without contrast. 238image(s) are provided. Radiation optimization: All CT scans at this facility use at least one of these dose optimization techniques: automated exposure control; mA and/or kV adjustment per patient size (includes targeted exams where dose is matched to clinical indication); or iterative reconstruction. Other technique: Axial images are available with sagittal and coronal reconstruction views. Automated dose exposure control is utilized. The DLP is 1018.84. REPORTING DATA: Count of CT and Cardiac NM exams in prior 12 months: This patient has received 4 known CTs and 0 known cardiac nuclear medicine studies in the 12 months prior to the current study. COMPARISON: CT abdomen pelvis wo con [id number] 06/04/2022 10:51 AM RADIATION DOSE METRICS: Total DLP (mGy-cm): 1018.84 FINDINGS: Lungs: No lobar consolidation is appreciated. There is linear subsegmental atelectasis versus post inflammatory scarring demonstrated. There are some minimal bleb related changes similar overall. Liver: There appears to be some mild hepatic steatosis. There is some slight periportal tracking. Gallbladder and bile ducts: Cholecystectomy clips are present. There is some biliary ductal prominence for example at the common ductal level measuring approximately 1.5 cm similar overall. There are some similar overall calcifications present which could also represent some adjacent wall or vascular type calcifications given the relatively persistent and similar overall locations. Pancreas: There is some slight fatty replacement of the pancreas. Spleen: Unremarkable. Adrenal glands: Unremarkable. Kidneys and ureters: No interval radiopaque obstructive calculus or hydronephrosis appreciated. There is some similar simple appearing fluid dense cyst for example at the left inferior renal pole measuring approximately 1.4 cm in diameter. Stomach and bowel: Some aspects of the colon are undistended. This may also be peristaltic related. For example at the hepatic flexure level also limited with significant motion artifact. There is some stool present limiting mucosal detail evaluation.The bowel gas pattern appears nonobstructive. There is similar medial cecal positioning. Appendix: The appendix is not definitively identified although no adjacent inflammatory stranding changes are currently appreciated. Intraperitoneal space: No free air or free fluid collections are appreciated. Vasculature: There are atherosclerotic vascular calcifications similar overall with no interval aortic saccular aneurysmal dilatation appreciated. Lymph nodes: There are subcentimeter predominant para-aortic and mesenteric lymph nodes overall present. Urinary bladder: The bladder is incompletely fluid filled for evaluation which may exagerate the wall thickness. This can also be seen with post inflammation sequela. Reproductive: Unremarkable as visualized. Bones/joints: Osseous alignment is maintained.No interval displaced fracture or dislocation is appreciated. There is similar alignment of the left hip hardware. There is some chronic multilevel degenerative appearance of the spine demonstrated along with some similar partial fusion. There is some slight dextrocurvature of the lumbar spine similar. There are some chronic appearing degenerative or postinflammatory appearing changes about the right sacroiliac joint similar overall. Soft tissues: There are some surgical changes about the right abdominal wall similar. Other findings: There is some motion artifact present. No other significant interval changes are appreciated. CT/CT abdomen pelvis wo con [id number] IMPRESSION: 1. There is some mild hepatic steatosis along with similar biliary ductal prominence extrahepatic predominantly in location. Consider hepatobiliary profile studies. 2. New interval fluid collection or acute inflammatory stranding changes are appreciated. COMMENTS: Consistent with the [employer]'s Incidental Findings Committee white paper (J [employer]iol 2018): Any incidental renal lesion less than 1 cm or classified as too small to characterize, or any incidental cystic renal lesion characterized as simple-appearing, is likely benign. No follow-up imaging is recommended for these lesions per consensus recommendations based on imaging criteria.
--- NOTE | 2023-04-24 13:06 | P.CONIM_ITS ---
Providers/Reason For Consult Consulting Physician/Specialty*: Dr. Christina/internal medicine Reason for Consult*: Medical reasons for hallucination Requesting Physician: Dr. Lantigua Attending Physician: Herber Louis MD Primary Care Provider: Prasad Rebollar MD History of Present Illness History of Present Illness Dallia Samuels is a 63 year old female with past medical history of borderline personality disorder, multiple psych meds, COPD, pulmonary hypertension, peripheral vascular disease, history of BKA with multiple joint replacement in the past, suicide attempt in the past was admitted to Neuropsych Unit because of concerns for hallucinations. Medicine was consulted for possible abnormality in lab and hallucinations. On examination patient is awake and alert, laying comfortably in bed, able to tell me her name, where she is, does seem to have slight confusion and is pointing to discomfort in her left leg near her old surgical scar though scar seems absolutely healthy without any erythema. Patient states she hurt herself while transferring at home. It seems patient transfers from bed to floor to wheelchair by herself. Patient otherwise is not able to give any further history. She denies any nausea, vomiting, headache. He states she is taking her medications regularly though cannot be sure. Review of Systems General: Reports: 10 or more systems reviewed and unremarkable except in HPI and below Const: Denies: fever(s), chills, body aches, change in appetite, change in weight, malaise, night sweats, diaphoresis, change in sleep pattern, daytime sleepiness or snoring Eyes: Denies: change in vision, blurry vision, photophobia, eye discomfort or eye discharge ENMT: Denies: throat pain, enlarged tonsils, hoarseness, mouth pain, oral sores, dry mouth, tinnitus, nasal congestion or post nasal drip Card: Denies: chest pain, palpitations, irregular heart rhythm, edema, swelling of feet/ankles, lightheadedness, syncope, pre-syncope, dyspnea on exertion, orthopnea, leg pain with exertion or acrocyanosis Resp: Denies: dyspnea, productive cough, non-productive cough, wheezing, stridor, pain on inspiration, change in phlegm color, hemoptysis or chest conges tion GI: Denies: abdominal pain, nausea, vomiting, hematemesis, coffee ground emesis, dysphagia, heartburn, diarrhea, constipation, bloating, GI cramping, change in bowel habits, pain on defecation, hematochezia or melena : Denies: flank pain, dysuria, urinary frequency, urinary urgency, urinary hesitancy, nocturia or hematuria Musc: Denies: neck pain, back pain, extremity pain, joint pain, joint swelling , joint redness, joint stiffness or limited range of motion Neuro: Denies: headache(s), numbness in extremities, weakness in extremities, sensory changes, lack of coordination, difficulty walking, frequent falls, dizziness, vertigo, confusion, Slurred speech present, difficulty communicating thoughts or seizure-like activity Psych: Denies: anxiety, depression, mood swings, panic attacks, hopelessness or irritability Endo: Denies: polyuria, polydipsia, tired all the time, cold intolerance, excessive sweating, flushing or heat intolerance Beau/Lymph: Denies: easy bruising or easy bleeding All/Imm: Denies: tongue swelling, facial swelling or acute wheezing Medications/Allergies Home Medications Medication Instructions Recorded Confirmed Last Taken Type epinephrine 0.3 mg/0.3 mL 0.3 mg (0.3 mL) IM Q15M PRN 12/04/22 04/24/23 Unknown Rx injection, auto-injector (EpiPen anaphylaxis #2 ea 2-Reji) RIGHT BTK prosthetic with supplies #1 ea 01/25/23 04/24/23 Unknown Rx umeclidinium 62.5 mcg-vilanterol 1 inh inhalation DAILY 30 days #60 01/25/23 04/24/23 Unknown Rx 25 mcg/actuation powdr for ea inhalation (Anoro Ellipta) Rollaid with chair #1 ea 02/03/23 04/24/23 Unknown Rx nebulizer and supplies #1 ea 02/04/23 04/24/23 Unknown Rx albuterol sulfate 2.5 mg/3 mL 2.5 mg (3 mL) inhalation Q4H PRN 03/15/23 04/24/23 Unknown Rx (0.083 %) solution for nebulization shortness of breath or wheezing #180 mL ondansetron 4 mg disintegrating 4 mg PO Q8H PRN nausea and 03/15/23 04/24/23 03/19/23 Rx tablet vomiting #60 tabs bupropion HCl 150 mg 24 hr tablet, 150 mg PO QAM 03/19/23 04/24/23 03/18/23 History extended release fluoxetine 40 mg capsule 80 mg PO QAM 03/19/23 04/24/23 03/18/23 History omeprazole 40 mg capsule,delayed 40 mg PO QAM 03/19/23 04/24/23 03/18/23 History release promethazine 25 mg tablet 25 mg PO Q6H PRN nausea and 03/19/23 04/24/23 Unknown Rx vomiting #20 tabs varenicline 1 mg tablet 1 mg PO BID 03/19/23 04/24/23 03/18/23 History albuterol sulfate 90 mcg/actuation 1 puff inhalation QID PRN 03/31/23 04/24/23 Unknown Rx aerosol inhaler (Ventolin HFA) shortness of breath or wheezing #8.5 grams benzonatate 200 mg capsule 200 mg PO BID PRN cough #60 caps 03/31/23 04/24/23 Unknown Rx gabapentin 300 mg capsule 300 mg PO TID 90 days #270 caps 03/31/23 04/24/23 Unkn own Rx lamotrigine 200 mg tablet 200 mg PO QAM #30 tabs 04/02/23 04/24/23 Unknown Rx quetiapine 400 mg tablet 400 mg PO BEDTIME #7 tabs 04/02/23 04/24/23 Unknown Rx ipratropium 0.5 mg-albuterol 3 mg 3 ml inhalation QID PRN wheezing 04/15/23 04/24/23 Unknown Rx (2.5 mg base)/3 mL nebulization #90 mL soln meloxicam 15 mg tablet 15 mg PO QAM #90 tabs 04/15/23 04/24/23 Unknown Rx liraglutide 0.6 mg/0.1 mL (18 mg/3 See Rx Instructions SUBCUT 04/20/23 04/24/23 Unknown Rx mL) subcutaneous pen injector .COMPLEX #9 mL (Victoza 3-Reji) Allergies Allergy/AdvReac Type Severity Reaction Status Date / Time Penicillins Allergy ALGY-Rash Verified 04/15/23 13:16 bee/wasp sting Allergy Severe ALGY-Anaphy Uncoded 04/15/23 13:16 laxis PFSH Acute PFSH: Medical History (Updated 04/24/23 @ 17:28 by Jovanny Christina MD) Altered mental status Amphetamine addiction Anxiety Aspiration of foreign body in respiratory tract Borderline personality disorder Cervical neuropathic pain Chronic idiopathic pain syndrome Chronic pain syndrome COPD (chronic obstructive pulmonary disease) COPD (chronic obstructive pulmonary disease) Cough DDD (degenerative disc disease), cervical DJD (degenerative joint disease), lumbar GERD (gastroesophageal reflux disease) Hepatitis C, chronic History of intravenous drug abuse Interstitial lung disease Metabolic encephalopathy Opioid dependence, in remission Other stimulant dependence, in remission Partial small bowel obstruction Psychiatric care Pulmonary hypertension PVD (peripheral vascular disease) with claudication Respiratory failure with hypoxia Schizoaffective disorder, bipolar type Surgical History (Updated 04/24/23 @ 17:28 by Jovanny Christina MD) H/O tubal ligation Hx of BKA Hx of fusion of cervical spine Hx of right BKA S/P cholecystectomy S/P tonsillectomy Family History Father Cancer lung Hypertension Diabetes Mother Hypertension Lung disease Diabetes Sister Diabetes Brother Diabetes Other CAD (coronary artery disease) Denies family history of Clotting disorder Dementia Hyperlipidemia Psychiatric illness Chronic kidney disease (CKD) Anesthesia complication Bleeding disorder Stroke Social History Smoking and tobacco status: current every day smoker (on chantix to help quit) cigarettes Years cigarettes smoked: 40 [ Other cigarette details: 1 pack per 6 d ays] Quit status (tobacco): has tried quititng Second hand smoke exposure: Yes Smoking risk assessment/counseling performed?: Yes Alcohol intake: former Counseling given: No Substance/Drug Use: former Date of last use: relapsed and overdosed around Sep, since then Counseling given: No Lives independently: Yes Household members: none Marital status: Current occupational status: disabled Do you think of yourself as: Straight/Heterosexual Current gender identity: Female Female Reproductive History: Spontaneous abortions: No Vitals/I&O/Wt Last Vital Signs Temp 98.3 F 04/24/23 12:16 Pulse 82 04/24/23 12:16 Resp 18 04/24/23 12:16 BP 149/100 04/24/23 12:16 Pulse Ox 96 04/24/23 12:16 O2 Del Method Room Air 04/24/23 01:07 Weight last 48 hrs Weight 107.501 kg Weight 99.79 kg Physical Exam Narrative: General: No acute distress, AO x 2-3, confusion, well-hydrated HEENT: PERRLA, pupils bilaterally equal and reactive Chest: Normal vesicular breath sounds, no added sounds, equal good air entry bilaterally CVS: S1-S2 regular, no murmurs, no tachycardia, no gallops, no rubs Abdomen: Soft, nontender, no organomegaly, bowel sounds present Neuro: No focal deficits, no facial deformity, 2-3, right BKA Data 04/25/23 04:31 04/25/23 04:31 A&P Assessment and plan (1) Hallucinations: (2) Confusion: (3) Hepatitis C: (4) Borderline personality disorder: (5) COPD (chronic obstructive pulmonary disease): (6) IV drug user: (7) Prolonged Q-T interval on ECG: Plan 63-year-old lady with past medical history of drug abuse, multiple psychiatric disorder including borderline personality disorder, hepatitis C admitted to Neuropsych Unit for hallucinations. Medicine consulted for further evaluation of hallucinations. Check CBC, CMP, ammonia levels, CT abdomen pelvis to rule out any occult signs of infection. Hallucination most likely in setting of chronic psychiatric disorders with con cerns for compliance to oral medications at home. Cannot rule out hepatic encephalopathy though mild in setting of chronic hepatitis C and transaminitis. Transaminitis slightly worsened to patient's baseline. Check ammonia levels. Empirically start patient on rifaximin 550 mg twice daily, lactulose 20 mg every 6 hourly. Will have to monitor patient's compliance. Patient should be restarted on her home medications including Seroquel 400 mg daily, bupropion 150 mg daily, fluoxetine 80 mg daily. We will discuss in detail with primary psychiatric team. Patient definitely would benefit from h ome dose of Seroquel and gabapentin. Check lamotrigine level. Restart lamotrigine at home dose. Continue other chronic medications for COPD. Nursing at [facility] worried about patient's safety given BKA and patient requiring lactulose for further bowel movements. Will discuss further with warehouse insulation worker. Patient can be transferred to MedSurg floor while patient requires more frequent lactulose as per nursing from Neuropsych Unit request though patient can be medically managed for now without any use of IV hydration on Neuropsych Unit. On discussion with warehouse insulation worker she is agreeable for transfer the patient to MedSurg floor for further management. Plan of treatment has been conveyed to detail with [facility] nurse and Dr. Lantigua. Consult Attestations Medical Necessity Statement: Requires further hospitalization for further evaluation and management of hallucinations in setting of multiple psychiatric disorder, possibility of noncompliance and hepatic encephalopathy Diagnoses Hallucinations R44.3 Confusion R41.0 Hepatitis C B19.20 Borderline personality disorder F60.3 COPD (chronic obstructive pulmonary disease) J44.9 IV drug user F19.90 Prolonged Q-T interval on ECG R94.31
[2023-04-24 14:03] LABS: Ammonia 63 umol/L (11-51)
[2023-04-24 14:06] LABS: Amylase 21 U/L (28-100); Lipase 24 U/L (13-60)
[2023-04-24] MEDS: gabapentin 300 mg Capsule PO ×2 (17:06→22:22)
[2023-04-24] MEDS: lactulose oral liq 20 gm/30 mL UDC PO (17:06)
[2023-04-24 17:30] LABS: Glucose Point of Care 92 mg/dL (70-110)
--- NOTE | 2023-04-24 17:50 | W.PM.NPUH&PS ---
Providers/Chief Complaint Admitting Physician: Herber Louis MD Primary Care Provider: Prasad Rebollar MD Chief Complaint: DRUG USE HPI NPU History of Present Illness Dalila Samuels is a 63 year old female with a history of schizoaffective disorder bipolar type, borderline personality disorder and methamphetamine abuse currently in remission who presented to the emergency department with acute mental status changes. Patient had allegedly been brought to the emergency department through [facility]. She had been confused and unable to answer why she was here in the hospital. The patient was admitted to the neuropsychiatric unit for further evaluation and treatment. She does appear to have a past history of chronic liver problems. She had been unable to answer any questions as to why she was here. She had stated that she had significant pain in her stomach and that she had felt hot all over. She was stating that she was having some difficulties with breathing. The patient was unable to provide any meaningful psychiatric history as she was unable to engage in any conversation without becoming agitated. Inpatient psychiatric history: Multiple inpatient hospitalizations along with previous records of patient having lived in a fci in 2019. She has had a history of significant psychiatric medication overdose. Outpatient psychiatric history: She has been receiving outpatient treatment under Concha Boo through [facility] in [place] with most recent follow-up in April 02, 2023. Previous diagnoses include borderline personality disorder and schizoaffective disorder. Current medications: Tessalon, bupropion 150 mg SR once a day, albuterol inhaler, Prozac 80 mg, Lamictal 150 mg daily, Seroquel 400 mg at night, Victoza, meloxicam, omeprazole, promethazine, odensetron, chantix 1mg bid, Allergies: Penicillin, bee stings medical history: Hepatitis C, obesity, chronic cough, history of phantom limb syndrome, cervical neuropathic pain, history of right BKA, COPD, GERD, DJD, Surgical history: Open reduction with internal fixation of fracture, history of right BKA, Drug and alcohol history: Per previous records history of substance abuse treatment including treatment for methamphetamine abuse in the past Legal history: None reported Family psychiatric history: Unknown Social history: Per previous records she apparently had grown up in [facility]. She had a sister who apparently is . She has lived in individual group homes and nursing homes due to her inability to manage her own self-care. She does appear to be living by herself at this time. Her current work status is unknown. She has an unknown history of trauma. Meds NPU Home Medications Medication Instructions Recorded Confirmed Last Taken Type epinephrine 0.3 mg/0.3 mL 0.3 mg (0.3 mL) IM Q15M PRN 12/04/22 04/24/23 Unknown Rx injection, auto-injector (EpiPen anaphylaxis #2 ea 2-Reji) RIGHT BTK prosthetic with supplies #1 ea 01/25/23 04/24/23 Unknown Rx umeclidinium 62.5 mcg-vilanterol 1 inh inhalation DAILY 30 days #60 01/25/23 04/24/23 Unknown Rx 25 mcg/actuation powdr for ea inhalation (Anoro Ellipta) Rollaid with chair #1 ea 02/03/23 04/24/23 Unknown Rx nebulizer and supplies #1 ea 02/04/23 04/24/23 Unknown Rx albuterol sulfate 2.5 mg/3 mL 2.5 mg (3 mL) inhalation Q4H PRN 03/15/23 04/24/23 Unknown Rx (0.083 %) solution for nebulization shortness of breath or wheezing #180 mL ondansetron 4 mg disintegrating 4 mg PO Q8H PRN nausea and 03/15/23 04/24/23 03/19/23 Rx tablet vomiting #60 tabs bupropion HCl 150 mg 24 hr tablet, 150 mg PO QAM 03/19/23 04/24/23 03/18/23 History extended release fluoxetine 40 mg capsule 80 mg PO QAM 03/19/23 04/24/23 03/18/23 History omeprazole 40 mg capsule,delayed 40 mg PO QAM 03/19/23 04/24/23 03/18/23 History release promethazine 25 mg tablet 25 mg PO Q6H PRN nausea and 03/19/23 04/24/23 Unknown Rx vomiting #20 tabs varenicline 1 mg tablet 1 mg PO BID 03/19/23 04/24/23 03/18/23 History albuterol sulfate 90 mcg/actuation 1 puff inhalation QID PRN 03/31/23 04/24/23 Unknown Rx aerosol inhaler (Ventolin HFA) shortness of breath or wheezing #8.5 grams benzonatate 200 mg capsule 200 mg PO BID PRN cough #60 caps 03/31/23 04/24/23 Unknown Rx gabapentin 300 mg capsule 300 mg PO TID 90 days #270 caps 03/31/23 04/24/23 Unknown Rx lamotrigine 200 mg tablet 200 mg PO QAM #30 tabs 04/02/23 04/24/23 Unknown Rx quetiapine 400 mg tablet 400 mg PO BEDTIME #7 tabs 04/02/23 04/24/23 Unknown Rx ipratropium 0.5 mg-albuterol 3 mg 3 ml inhalation QID PRN wheezing 04/15/23 04/24/23 Unknown Rx (2.5 mg base)/3 mL nebulization #90 mL soln meloxicam 15 mg tablet 15 mg PO QAM #90 tabs 04/15/23 04/24/23 Unknown Rx liraglutide 0.6 mg/0.1 mL (18 mg/3 See Rx Instructions SUBCUT 04/20/23 04/24/23 Unknown Rx mL) subcutaneous pen injector .COMPLEX #9 mL (Victoza 3-Reji) Allergies Allergy/AdvReac Type Severity Reaction Status Date / Time Penicillins Allergy ALGY-Rash Verified 04/15/23 13:16 bee/wasp sting Allergy Severe ALGY-Anaphy Uncoded 04/15/23 13:16 laxis PFSH NPU PFSH: Medical History (Updated 04/24/23 @ 17:28 by Jovanny Christina MD) Altered mental status Amphetamine addiction Anxiety Aspiration of foreign body in respiratory tract Borderline personality disorder Cervical neuropathic pain Chronic idiopathic pain syndrome Chronic pain syndrome COPD (chronic obstructive pulmonary disease) COPD (chronic obstructive pulmonary disease) Cough DDD (degenerative disc disease), cervical DJD (degenerative joint disease), lumbar GERD (gastroesophageal reflux disease) Hepatitis C, chronic History of intravenous drug abuse Interstitial lung disease Metabolic encephalopathy Opioid dependence, in remission Other stimulant dependence, in remission Partial small bowel obstruction Psychiatric care Pulmonary hypertension PVD (peripheral vascular disease) with claudication Respiratory failure with hypoxia Schizoaffective disorder, bipolar type Surgical History (Updated 04/24/23 @ 17:28 by Jovanny Christina MD) H/O tubal ligation Hx of BKA Hx of fusion of cervical spine Hx of right BKA S/P cholecystectomy S/P tonsillectomy Family History Father Cancer lung Hypertension Diabetes Mother Hypertension Lung disease Diabetes Sister Diabetes Brother Diabetes Other CAD (coronary artery disease) Denies family history of Clotting disorder Dementia Hyperlipidemia Psychiatric illness Chronic kidney disease (CKD) Anesthesia complication Bleeding disorder Stroke Social History Smoking and tobacco status: current every day smoker (on chantix to help quit) cigarettes Years cigarettes smoked: 40 [ Other cigarette details: 1 pack per 6 days] Quit status (tobacco): has tried quititng Second hand smoke exposure: Yes Smoking risk assessment/counseling performed?: Yes Alcohol intake: former Counseling given: No Substance/Drug Use: former Date of last use: relapsed and overdosed around Sep, since then Counseling given: No Lives independently: Yes Household members: none Marital status: Current occupational status: disabled Do you think of yourself as: Straight/Heterosexual Current gender identity: Female Female Reproductive History: Spontaneous abortions: No Mental Status Exam MSE Comments: Patient was alert and was able to answer her name but was unable to answer meaningfully to any questions including being unable to answer anything other than stating her name. She was not able to provide the date month or year. She reported being in pain. She was not able to expand on her current feeling. She did not endorse having thoughts of hurting herself or others. She was able to follow simple one-step command but was not able to follow three-step commands. She did not appear to be responding to internal stimuli. There was no clear evidence of delusional thinking. She appeared older than her stated age with fleeting eye contact. Her speech was limited in productivity and normal in regards to volume. Her thought process was not organized her attention span was variable. Her insight judgment and impulse control were all impaired. There was significant perseveration noted as she was able to spell the word world forward but when asked to spell it backwards she continued to perseverate and spell it forwards. Vitals/I&O/Wt Last Vital Signs Temp 98.5 F 04/24/23 16:59 Pulse 62 04/24/23 16:59 Resp 18 04/24/23 16:59 BP 136/75 04/24/23 16:59 Pulse Ox 95 04/24/23 16:59 O2 Del Method Room Air 04/24/23 16:59 Weight last 48 hrs Weight 107.501 kg Weight 99.79 kg Data NPU 04/23/23 21:14 04/23/23 21:14 A&P Assessment and plan (1) Schizoaffective disorder, bipolar type: (2) Borderline personality disorder: Plan This is a 63-year-old white female with a history of schizoaffective disorder who presents confused with multiple medical problems. She is wheelchair bound and appears to be unable to manage self care while requiring assistance for all ADL's. 1. Will restart current medications. 2. Continue every 15 minute checks for safety with patient possibly moving to med/surg with greater nursing care required. 3. Encourage individual, group and milieu therapies. 4. Add Lactulose, check NH3 level, CT abdomen completed due to concern of abdominal pain. Involuntary Hold Information 96 Hour Hold: 96 Hour Involuntary Admission: No Attestations NPU Medical Necessity Statement*: Inpatient hospitalization is medically necessary and the clinically appropriate intervention at this time. We will monitor/initiate medications and make changes as indicated. The patient will be on the psychiatric unit for at least two midnights. Her likely length of stay 4-6 days. Coding Level of Care Code Acute Code for [facility] Diagnoses Schizoaffective disorder, bipolar type F25.0 Borderline personality disorder F60.3
[2023-04-24 18:32] LABS: Basophils # 0.2 10^3/uL (0.0-0.1); Basophils % 1.2 %; Eosinophils % 0.3 %; Hematocrit 46.5 % (36-47); Lymphocytes % 15.4 %; Mean Corpuscular HGB Conc 32.5 g/dL (30-55); Mean Corpuscular Hemoglobin 29.4 pg (27-33); Mean Corpuscular Volume 90.6 fl (85-98); Mean Platelet Volume 8.6 fL (7.4-10.4); Monocytes # 0.8 10^3/uL (0.2-0.9); Monocytes % 6.6 %; Neutrophils # 9.23 10^3/uL (1.8-7.7); Neutrophils % 72.7 %; Nucleated Red Blood Cells % 0 %; Platelet Count 412 10^3/cmm (157-399); Red Blood Count 5.13 10^6/uL (3.85-5.65); Red Cell Distribution Width 12.2 % (12.1-15.1)
[2023-04-24 18:57] LABS: Alanine Aminotransferase 51 U/L (0-33); Albumin Level 3.8 g/dL (3.5-5.2); Alkaline Phosphatase 126 U/L (35-105); Anion Gap 17.2 (5-19); Aspartate Amino Transferase 48 U/L (0-32); Blood Urea Nitrogen 15 mg/dL (8-23); Calcium 9.6 mg/dL (8.5-10.5); Carbon Dioxide 20 mmol/L (22-29); Chloride 98 mmol/L (98-107); Creatinine Clr Calc Pharmacy 151.7224; Globulin 3.7 g/dL (1.3-4.6); Glomerular Filtration Rate 125.4 mL/min (90-130); Glucose 97 mg/dL (65-115); Osmolality Calculated 275 mOsm/kg (285-295); Potassium 3.2 mmol/L (3.5-5.1); Sodium 132 mmol/L (136-145); Total Bilirubin 0.6 mg/dL (0.15-1.2); Total Protein 7.5 g/dL (6.6-8.7)
[2023-04-24 19:13] LABS: Vitamin B12 655 pg/mL (232-1245)
[2023-04-24 21:06] LABS: Glucose Point of Care 102 mg/dL (70-110)
[2023-04-24] MEDS: hyDROXYzine 25 mg Capsule 50 MG PO (22:22)
[2023-04-25] MEDS: lactulose oral liq 20 gm/30 mL UDC PO ×3 (01:15→13:39)
[2023-04-25 03:28] VITALS: BP 96/58; PULSE 115; RESP 19; TEMP 36.8; O2SAT 94
[2023-04-25] MEDS: sodium chloride 0.9% 500 ML 999 ML IV (04:22)
[2023-04-25 04:53] LABS: Basophils # 0.1 10^3/uL (0.0-0.1); Basophils % 0.9 %; Eosinophils # 0.1 10^3/uL (0.0-0.8); Eosinophils % 1.4 %; Hematocrit 38.7 % (36-47); Lymphocytes # 2.5 10^3/uL (0.8-4.8); Lymphocytes % 24.7 %; Mean Corpuscular HGB Conc 32.3 g/dL (30-55); Mean Corpuscular Volume 89.8 fl (85-98); Mean Platelet Volume 8.6 fL (7.4-10.4); Neutrophils # 5.89 10^3/uL (1.8-7.7); Neutrophils % 59.4 %; Nucleated Red Blood Cells % 0 %; Platelet Count 373 10^3/cmm (157-399); Red Blood Count 4.31 10^6/uL (3.85-5.65); Red Cell Distribution Width 12.3 % (12.1-15.1); White Blood Count 9.92 10^3/uL (3.29-11.43)
[2023-04-25 05:07] VITALS: BP 93/57; PULSE 108; RESP 20; TEMP 36.8; O2SAT 96
[2023-04-25 05:11] LABS: Alanine Aminotransferase 42 U/L (0-33); Albumin Level 3.4 g/dL (3.5-5.2); Alkaline Phosphatase 113 U/L (35-105); Anion Gap 14.1 (5-19); Aspartate Amino Transferase 36 U/L (0-32); Blood Urea Nitrogen 20 mg/dL (8-23); Calcium 9.1 mg/dL (8.5-10.5); Carbon Dioxide 22 mmol/L (22-29); Chloride 103 mmol/L (98-107); Globulin 2.5 g/dL (1.3-4.6); Glomerular Filtration Rate 50.5 mL/min (90-130); Glucose 142 mg/dL (65-115); Osmolality Calculated 287 mOsm/kg (285-295); Potassium 3.1 mmol/L (3.5-5.1); Sodium 136 mmol/L (136-145); Total Bilirubin 0.4 mg/dL (0.15-1.2); Total Protein 5.9 g/dL (6.6-8.7)
--- NOTE | 2023-04-25 06:26 | PC.NURSE ---
Shift summary- Patient brought to the [facility] floor at 2100, Patient requested a shower, Nurse assisted with bathing the patient and then assisted patient to bed, Patient's hair was badly matted, nurse de-matted and brushed hair and braided it. Patient ate several snacks and approximately 960 mls PO fluid intake. Patient has had intermittent confusion all night but was easily redirected. Patient had not voided and became hypotensive and tachycardic around 0400, Dr. Ocasio notified and new orders received for 500 ml NS IV bolus. 22 G IV placed and Bolus administered, patient tolerated well with no complaints, Patient BP did not improve much and still had not voided by end of shift. Bladder scan performed and showed [address] Ocasio voalte messaged with update, charge nurse updated as well. No new orders at this time.
[2023-04-25 07:07] LABS: Glucose Point of Care 182 mg/dL (70-110)
[2023-04-25] MEDS: gabapentin 300 mg Capsule PO ×3 (08:27→20:29)
[2023-04-25] MEDS: insulin lispro 100 unit/1 mL SUBCUT (08:28)
[2023-04-25 08:50] LABS: Ammonia 51 umol/L (11-51)
[2023-04-25 09:00] VITALS: BP 116/80; PULSE 117; RESP 18; TEMP 36.6; O2SAT 97
[2023-04-25 10:41] LABS: Glucose Point of Care 107 mg/dL (70-110)
[2023-04-25 10:44] VITALS: BP 106/70; PULSE 90; RESP 17; TEMP 36.7; O2SAT 92
[2023-04-25] MEDS: sodium chloride 0.9% 1,000 ML 75 ML IV (13:46)
--- NOTE | 2023-04-25 14:24 | P.NPUPN_ITS ---
Subjective NPU Subjective: 63-year-old white female admitted with acute mental status changes with a history of psychosis and borderline personality disorder. Patient has continued requirement for use of a wheelchair and was placed on the [facility] surgical team to allow better access to medical nursing services that are not available on the neuropsychiatric unit. Patient was restarted on her medications today. The patient had reported that she was feeling better today and stated that she had been feeling sick over the last few days. She denied any auditory hallucinations. She reported no side effects from her medications. She had continued to require support for completion of activities of daily living and when questioned about how she was living independently she had indicated that she was crawling at home to complete these activities. The patient had indicated having few social supports. She had reported chronic feelings of abandonment. Mental Status Exam MSE Comments: Patient was pleasant and cooperative on interview. She was alert and oriented to person place and time. She was sitting up in her hospital bed and appeared in no acute distress. Her mood was described as okay. Her affect was restr icted. Her thought process was linear logical and goal-directed. Her thought content revealed no evidence of suicidal or homicidal ideation. She did not appear to be responding to internal stimuli. There was no clear evidence of delusional thinking. Her attention span was adequate. Her recent and remote memory appeared grossly intact. Her insight was limited. Her judgment appears to be improving. Her impulse control remained guarded. Vitals/I&O/Wt Last Vital Signs Temp 98.1 F 04/25/23 10:44 Pulse 90 04/25/23 10:44 Resp 17 04/25/23 10:44 BP 106/70 04/25/23 10:44 Pulse Ox 92 04/25/23 10:44 O2 Del Method Room Air 04/25/23 10:44 04/24/23 04/25/23 04/25/23 22:59 06:59 14:59 Intake Total 1460 / 1460 840 / 840 Output Total 0 / 0 Balance 1460 / 1460 840 / 840 Weight last 48 hrs Weight 101.06 kg Weight 107.501 kg Weight 99.79 kg Data NPU 04/25/23 04:31 04/25/23 04:31 A&P Assessment and plan (1) Schizoaffective disorder, bipolar type: (2) Borderline personality disorder: Plan This is a 63-year-old white female with a history of schizoaffective disorder who presents confused with multiple medical problems. She is wheelchair bound and appears to be unable to manage self care while requiring assistance for all ADL's. 1. Continue with outpatient medications, patient appears improved in last 24 hours. Continue wellbutrin xl and Seroquel as prescribed. 2. Continue every 15 minute checks for safety with patient possibly moving to med/surg with greater nursing care required. 3. Encourage individual, group and milieu therapies. 4. Recommend PT consult, concern exists regarding patient living independently as patient had previously required residential placement a few years ago. We will attempt to gather collateral information from outpatient treatment team as well. Involuntary Hold Information 96 Hour Hold: 96 Hour Involuntary Admission: No Attestations NPU Medical Necessity Statement*: Inpatient hospitalization is medically necessary and the clinically appropriate intervention at this time. We will monitor/initiate medications and make changes as indicated. The patient will be on the psychiatric unit for at least two midnights. Her likely length of stay 2-3 days. Coding Level of Care Code Acute Code for [facility] Diagnoses Schizoaffective disorder, bipolar type F25.0 Borderline personality disorder F60.3
--- NOTE | 2023-04-25 14:25 | PM.PN ---
Subjective Subjective: Overnight patient has taken lactulose and has had multiple bowel movements. Patient's blood pressure today morning slightly soft for which she received 5 cc of IV fluid bolus. Patient states she is feeling a lot better. Continues to remain hemodynamically stable and on room air. Seen with sitter at bedside. Patient seems less confused today. Blood was appreciated for stable CBC with resolution of leukocytosis, CMP showing mild hypokalemia, stable creatinine with ammonia level down to baseline Vitals/I&O/Wt Last Vital Signs Temp 98.1 F 04/25/23 10:44 Pulse 90 04/25/23 10:44 Resp 17 04/25/23 10:44 BP 106/70 04/25/23 10:44 Pulse Ox 92 04/25/23 10:44 O2 Del Method Room Air 04/25/23 10:44 04/24/23 04/25/23 04/25/23 22:59 06:59 14:59 Intake Total 1460 / 1460 840 / 840 Output Total 0 / 0 Balance 1460 / 1460 840 / 840 Weight last 48 hrs Weight 101.06 kg Weight 107.501 kg Weight 99.79 kg Physical Exam Narrative: General: No acute distress, AO x 2-3, confusion, well-hydrated HEENT: PERRLA, pupils bilaterally equal and reactive Chest: Normal vesicular breath sounds, no added sounds, equal good air entry bilaterally CVS: S1-S2 regular, no murmurs, no tachycardia, no gallops, no rubs Abdomen: Soft, nontender, no organomegaly, bowel sounds present Neuro: No focal deficits, no facial deformity, 2-3, right BKA Data 04/25/23 04:31 04/25/23 04:31 A&P Assessment and plan (1) Hallucinations: (2) Confusion: (3) Hepatitis C: (4) Borderline personality disorder: (5) COPD (chronic obstructive pulmonary disease): (6) IV drug user: (7) Prolonged Q-T interval on ECG: Plan 63-year-old lady with past medical history of drug abuse, multiple psychiatric disorder including borderline personality disorder, hepatitis C admitted to Neuropsych Unit for hallucinations. Medicine consulted for further evaluation of hallucinations. Check CBC, CMP, ammonia levels, CT abdomen pelvis to rule out any occult signs of infection. Hallucination most likely in setting of chronic psychiatric disorders with concerns for compliance to oral medications at home. Cannot rule out hepatic encephalopathy though mild in setting of chronic hepatitis C and transaminitis. Transaminitis slightly worsened to patient's baseline. Check ammonia levels. Empirically start patient on rifaximin 550 mg twice daily, lactulose 20 mg every 6 hourly. Will have to monitor patient's compliance. Patient should be restarted on her home medications including Seroquel 400 mg daily, bupropion 150 mg daily, fluoxetine 80 mg daily. We will discuss in detail with primary psychiatric team. Patient definitely would benefit from home dose of Seroquel and gabapentin. Check lamotrigine level. Restart lamotrigine at home dose. Continue other chronic medications for COPD. Nursing at NPU worried about patient's safety given BKA and patient requiring lactulose for further bowel movements. Will discuss further with oracle data warehouse developer. Patient can be transferred to MedSurg floor while patient requires more frequent lactulose as per nursing from Neuropsych Unit request though patient can be medically managed for now without any use of IV hydration on Neuropsych Unit. On discussion with oracle data warehouse developer she is agreeable for transfer the patient to MedSurg floor for further management. Plan for the day: Seroquel restarted at home dose by Neuropsych Unit. Ammonia levels better. Continue with rifampin 550 twice daily, lactulose 20 mg every 12 hourly. Target 2-3 soft bowel movements. Replete 40 mg of oral potassium Gentle IV hydration with normal saline at 75 cc/h for 1 bag. Patient will be stable to transfer back to Neuropsych Unit after completion of IV hydration with 1 bag. Care discussed in detail with patient's RN and nursing mail handlers supervisor at bedside. Attestations Medical Necessity Statement*: As per primary team Diagnoses Hallucinations R44.3 Confusion R41.0 Hepatitis C B19.20 Borderline personality disorder F60.3 COPD (chronic obstructive pulmonary disease) J44.9 IV drug user F19.90 Prolonged Q-T interval on ECG R94.31
[2023-04-25 15:47] VITALS: BP 112/73; PULSE 75; RESP 17; TEMP 36.8; O2SAT 95
[2023-04-25 16:52] LABS: Glucose Point of Care 120 mg/dL (70-110)
[2023-04-25] MEDS: potassium chloride ER 20 mEq Tablet 40 MEQ PO (16:53)
[2023-04-25 21:15] VITALS: BP 102/61; PULSE 72; RESP 16; TEMP 36.8; O2SAT 90
[2023-04-25 22:46] LABS: Glucose Point of Care 119 mg/dL (70-110)
[2023-04-26] MEDS: lactulose oral liq 20 gm/30 mL UDC PO (00:45)
[2023-04-26 01:00] VITALS: BP 128/81; PULSE 83; RESP 21; TEMP 37.1; O2SAT 91
[2023-04-26 04:55] VITALS: BP 145/87; PULSE 82; RESP 24; TEMP 37.6; O2SAT 90
[2023-04-26 06:21] LABS: Glucose Point of Care 162 mg/dL (70-110)
[2023-04-26 07:53] VITALS: BP 145/83; PULSE 75; RESP 15; TEMP 36.9; O2SAT 92
[2023-04-26] MEDS: insulin lispro 100 unit/1 mL SUBCUT (08:49)
[2023-04-26] MEDS: gabapentin 300 mg Capsule PO (08:49)
[2023-04-26] MEDS: buPROPion XL (24 HR) 150 mg Tablet PO (08:49)
[2023-04-26 10:56] LABS: Glucose Point of Care 132 mg/dL (70-110)
[2023-04-26 11:00] VITALS: BP 135/83; PULSE 81; RESP 18; TEMP 36.6; O2SAT 95
--- NOTE | 2023-04-26 12:02 | PM.DCS ---
Discharge Providers Date of Admission: 04/24/23 06:14 Date of Discharge: April 26, 2023 Attending Provider at Admission: Herber Louis MD Attending Provider at Discharge: Rehan Sellers DO Primary Care Provider: Prasad Rebollar MD Diagnoses at Discharge Discharge Diagnosis (1) Hallucinations: Status: Acute (2) Confusion: Status: Acute (3) Hepatitis C: Status: Acute (4) Borderline personality disorder: Status: Acute (5) COPD (chronic obstructive pulmonary disease): Status: Acute (6) IV drug user: Status: Acute (7) Prolonged Q-T interval on ECG: Status: Acute (8) Schizoaffective disorder, bipolar type: Status: Acute Reason for Visit Reason for Visit: DRUG USE Discharge Data Studies Completed and Pending Completed Studies During Hospitalization Category Date Time Status CT abdomen pelvis wo con [id number] Routine Cat Scan 04/24/23 13:[address] head wo con* [id number] Stat Cat Scan 04/23/23 22:29 Completed Pending at discharge Category Date Time Status Lamotrigine (Lamictal) Level Routine Lab 04/24/23 13:28 Received Radiology Impressions Head CT 04/23/23 22:29 IMPRESSION: 1. No acute intracranial abnormality. 2. Small-vessel ischemic disease. Abdomen/Pelvis CT 04/24/23 13:05 IMPRESSION: 1. There is some mild hepatic steatosis along with similar biliary ductal prominence extrahepatic predominantly in location. Consider hepatobiliary profile studies. 2. New interval fluid collection or acute inflammatory stranding changes are appreciated. COMMENTS: Consistent with the [employer]'s Incidental Findings Committee white paper (J Am Sugar Radiol 2018): Any incidental renal lesion less than 1 cm or classified as too small to characterize, or any incidental cystic renal lesion characterized as simple-appearing, is likely benign. No follow-up imaging is recommended for these lesions per consensus recommendations based on imaging criteria. Laboratory Results WBC 9.92 10^3/uL (3.29-11.43) 04/25/23 04:31 RBC 4.31 10^6/uL (3.85-5.65) 04/25/23 04:31 Hgb 12.50 g/dL (11.27-16.99) 04/25/23 04:31 Hct 38.7 % (36-47) 04/25/23 04:31 MCV 89.8 fl (85-98) 04/25/23 04:31 MCH 29.0 pg (27-33) 04/25/23 04:31 MCHC 32.3 g/dL (30-55) 04/25/23 04:31 RDW 12.3 % (12.1-15.1) 04/25/23 04:31 Plt Count 373 10^3/cmm (157-399) 04/25/23 04:31 MPV 8.6 fL (7.4-10.4) 04/25/23 04:31 Neut % (Auto) 59.4 % 04/25/23 04:31 Lymph % (Auto) 24.7 % 04/25/23 04:31 [place] % (Auto) 10.0 % 04/25/23 04:31 Eos % (Auto) 1.4 % 04/25/23 04:31 Baso % (Auto) 0.9 % 04/25/23 04:31 Neut # (Auto) 5.89 10^3/uL (1.8-7.7) 04/25/23 04:31 Lymph # (Auto) 2.5 10^3/uL (0.8-4.8) 04/25/23 04:31 [place] # (Auto) 1.0 10^3/uL (0.2-0.9) H 04/25/23 04:31 Eos # (Auto) 0.1 10^3/uL (0.0-0.8) 04/25/23 04:31 Baso # (Auto) 0.1 10^3/uL (0.0-0.1) 04/25/23 04:31 Nucleated RBC % (auto) 0 % 04/25/23 04:31 Nucleated RBCs # 0.0 /100WBC 04/25/23 04:31 Sodium 136 mmol/L (136-145) 04/25/23 04:31 Potassium 3.1 mmol/L (3.5-5.1) L 04/25/23 04:31 Chloride 103 mmol/L (98-107) 04/25/23 04:31 Carbon Dioxide 22 mmol/L (22-29) 04/25/23 04:31 Anion Gap 14.1 (5-19) 04/25/23 04:31 BUN 20 mg/dL (8-23) 04/25/23 04:31 Creatinine 1.1 mg/dL (0.5-0.9) H 04/25/23 04:31 GFR Calculation 50.5 mL/min (90-130) L 04/25/23 04:31 Glucose 142 mg/dL (65-115) H 04/25/23 04:31 POC Glucose 132 mg/dL (70-110) H 04/26/23 10:47 Calculated Osmolality 287 mOsm/kg (285-295) 04/25/23 04:31 Calcium 9.1 mg/dL (8.5-10.5) 04/25/23 04:31 Total Bilirubin 0.4 mg/dL (0.15-1.2) 04/25/23 04:31 AST 36 U/L (0-32) H 04/25/23 04:31 ALT 42 U/L (0-33) H 04/25/23 04:31 Alkaline Phosphatase 113 U/L (35-105) H 04/25/23 04:31 Ammonia 51 umol/L (11-51) 04/25/23 08:25 Total Protein 5.9 g/dL (6.6-8.7) L D 04/25/23 04:31 Albumin 3.4 g/dL (3.5-5.2) L 04/25/23 04:31 Globulin 2.5 g/dL (1.3-4.6) 04/25/23 04:31 Amylase 21 U/L (28-100) L 04/24/23 13:28 Lipase 24 U/L (13-60) 04/24/23 13:28 Vitamin B12 655 pg/mL (232-1245) 04/24/23 18:15 TSH 0.36 uIU/mL (0.27-4.20) 04/23/23 21:14 Urine Color Yellow (Yellow) 04/23/23 21:40 Urine Appearance Clear (CLEAR) 04/23/23 21:40 Urine pH 6 (5-7) 04/23/23 21:40 Ur Specific [place] 1.020 (1.005-1.030) 04/23/23 21:40 Urine Protein 1+ (Negative) H 04/23/23 21:40 Urine Glucose (UA) Norm (Normal) 04/23/23 21:40 Urine Ketones 3+ (Negative) H 04/23/23 21:40 Urine Blood Neg (Negative) 04/23/23 21:40 Urine Nitrate Negative (Negative) 04/23/23 21:40 Urine Bilirubin 1+ (Negative) H 04/23/23 21:40 Urine Urobilinogen 4+ mg/dL (Negative) H 04/23/23 21:40 Ur Leukocyte Esterase Trace (Negative) H 04/23/23 21:40 Urine RBC Rare /hpf (0-2) 04/23/23 21:40 Urine WBC 0-4 /hpf (0-5) H 04/23/23 21:40 Ur Squamous Epith Cells Rare /hpf (0-5) 04/23/23 21:40 Amorphous Sediment 1+ /hpf 04/23/23 21:40 Urine Bacteria None /hpf (NONE) 04/23/23 21:40 Urine Mucus 3+ /hpf 04/23/23 21:40 Salicylates 1.5 mg/dL (3-10) L 04/23/23 21:14 Urine Opiates Screen Negative ng/mL (Negative) 04/23/23 21:40 Acetaminophen < 5.0 ug/mL (10-30) L 04/23/23 21:14 Ur Barbiturates Screen Negative ng/mL (Negative) 04/23/23 21:40 Ur Phencyclidine Scrn Negative ng/mL (Negative) 04/23/23 21:40 Ur Amphetamines Screen Negative ng/mL (Negative) 04/23/23 21:40 U Benzodiazepines Scrn Positive ng/mL (Negative) H 04/23/23 21:40 Urine Cocaine Screen Negative ng/mL (Negative) 04/23/23 21:40 U Marijuana (THC) Screen Negative ng/mL (Negative) 04/23/23 21:40 Ethyl Alcohol < 10 mg/dL (0-10) 04/23/23 21:14 Vitals Last Vital Signs Temp 97.9 F 04/26/23 11:00 Pulse 81 04/26/23 11:00 Resp 18 04/26/23 11:00 BP 135/83 04/26/23 11:00 Pulse Ox 95 04/26/23 11:00 O2 Del Method Room Air 04/26/23 11:00 Discharge Plan Discharge Patient Disposition: Home Condition: Stable Prescriptions: New nicotine 21 mg/24 hr Patch 24 Hour 1 patch transdermal DAILY Qty: 30 0RF hydroxyzine pamoate 25 mg Capsule 50 mg PO Q6H PRN (Reason: Anxiety) Qty: 100 0RF bupropion HCl 150 mg Tablet Extended Release 24 Hr 150 mg PO DAILY Qty: 30 0RF Xifaxan 550 mg Tablet 550 mg PO BID Qty: 60 0RF lactulose 20 gram/30 mL Solution 20 g PO DAILY Qty: 30 0RF Continued epinephrine [EpiPen 2-Reji] 0.3 mg/0.3 mL auto-injector 0.3 mg IM Q15M PRN (Reason: anaphylaxis) Qty: 2 0RF Rx Instructions: for 2 doses gabapentin 300 mg capsule 300 mg PO TID 90 Days Qty: 270 1RF albuterol sulfate [Ventolin HFA] 90 mcg/actuation HFA aerosol inhaler 1 puff inhalation QID PRN (Reason: shortness of breath or wheezing) Qty: 8.5 3RF benzonatate 200 mg capsule 200 mg PO BID PRN (Reason: cough) Qty: 60 0RF lamotrigine 200 mg tablet 200 mg PO QAM Qty: 30 0RF quetiapine 400 mg tablet 400 mg PO BEDTIME Qty: 7 6RF Rx Instructions: ONLY FILL ONE WEEK AT A TIME. ipratropium-albuterol 0.5 mg-3 mg(2.5 mg base)/3 mL solution for nebulization 3 ml inhalation QID PRN (Reason: wheezing) Qty: 90 2RF meloxicam 15 mg tablet 15 mg PO QAM Qty: 90 1RF (DME) RIGHT BTK prosthetic with supplies See Rx Instructions .Route .MEDSUPPLY Qty: 1 0RF Rx Instructions: As directed Anoro Ellipta 62.5-25 mcg/actuation blister with device 1 inh inhalation DAILY 30 Days Qty: 60 3RF (DME) Rollaid with chair See Rx Instructions .Route .MEDSUPPLY Qty: 1 0RF Rx Instructions: As directed (DME) nebulizer and supplies See Rx Instructions .Route .MEDSUPPLY Qty: 1 0RF Rx Instructions: As directed ondansetron 4 mg tablet,disintegrating 4 mg PO Q8H PRN (Reason: nausea and vomiting) Qty: 60 1RF albuterol sulfate 2.5 mg /3 mL (0.083 %) solution for nebulization 2.5 mg inhalation Q4H PRN (Reason: shortness of breath or wheezing) Qty: 180 5RF Victoza 3-Reji 0.6 mg/0.1 mL (18 mg/3 mL) pen injector See Rx Instructions SUBCUT .COMPLEX Qty: 9 2RF Rx Instructions: inject 0.6mg subcutaneously once daily x 7 days; then 1.2mg daily fluoxetine 40 mg capsule 80 mg PO QAM bupropion HCl 150 mg tablet extended release 24 hr 150 mg PO QAM omeprazole 40 mg capsule,delayed release(DR/EC) 40 mg PO QAM varenicline 1 mg tablet 1 mg PO BID promethazine 25 mg tablet 25 mg PO Q6H PRN (Reason: nausea and vomiting) Qty: 20 0RF Discharge Orders: Discharge Order (Routine); Ordered 04/26/23 Ordered By: Rehan Sellers Referrals: Dhara Araiza MD [Staff Physician] - 7-10 days (HEPATIC ENCEPHALOPATHY) Prasad Rebollar MD [Primary Care Provider] - (We have notified your physician's clinic of the need for a follow-up appointment to be scheduled. If you have not heard from them within the next 2 business days, please call them directly. You may also reach out to our corporate operations compliance manager at [phone] and she can assist you.) Herber Louis MD [Physician] - 7-10 days Discharge Diet: Diabetic Discharge Activity: Resume usual activity Discharge Attestations Status at Discharge: Cognitive status at discharge: mildly impaired cognition, Behavioral status at discharge: cooperative, Coding Level of Care Code Acute Code for [facility] Fwd Diagnoses Hallucinations R44.3 Confusion R41.0 Hepatitis C B19.20 Borderline personality disorder F60.3 COPD (chronic obstructive pulmonary disease) J44.9 IV drug user F19.90 Prolonged Q-T interval on ECG R94.31 Schizoaffective disorder, bipolar type F25.0
--- NOTE | 2023-04-26 12:57 | PC.NURSE ---
Pt discharge education provided. Pt concerned about possible pajamas; however, NPU states that pt arrived without clothing on body. Pt verbalizes that this is possible. Paper scrubs provided for pt to wear during transport. IV removed. Transport notified.
[2023-04-26 13:01] VITALS: BP 135/83; PULSE 81; RESP 18; TEMP 36.6; O2SAT 95
--- NOTE | 2023-04-26 13:27 | P.NPUDS_ITS ---
Diagnoses at Discharge Discharge Diagnosis (1) Hallucinations: Status: Acute (2) Confusion: Status: Acute (3) Hepatitis C: Status: Acute (4) Borderline personality disorder: Status: Acute (5) COPD (chronic obstructive pulmonary disease): Status: Acute (6) IV drug user: Status: Acute (7) Prolonged Q-T interval on ECG: Status: Acute (8) Schizoaffective disorder, bipolar type: Status: Acute Reason for Visit Reason for Visit: DRUG USE Brief History: History of Present Illness Dalila Samuels is a 63 year old female with a history of schizoaffective disorder bipolar type, borderline personality disorder and methamphetamine abuse currently in remission who presented to the emergency department with acute mental status changes.? Patient had allegedly been brought to the emergency department through [facility].? She had been confused and unable to answer why she was here in the hospital.? The patient was admitted to the neuropsychiatric unit for further evaluation and treatment.? She does appear to have a past history of chronic liver problems.? She had been unable to answer any questions as to why she was here.? She had stated that she had significant pain in her stomach and that she had felt hot all over.? She was stating that she was having some difficulties with breathing.? The patient was unable to provide any meaningful psychiatric history as she was unable to engage in any conversation without becoming agitated. Inpatient psychiatric history: Multiple inpatient hospitalizations along with previous records of patient having lived in a usp in 2019.? She has had a history of significant psychiatric medication overdose. Outpatient psychiatric history: She has been receiving outpatient treatment under Concha Boo through [facility] in [place] with most recent follow-up in April 02, 2023.? Previous diagnoses include borderline personality disorder and schizoaffective disorder. Current medications: Tessalon, bupropion 150 mg SR once a day, albuterol inhaler, Prozac 80 mg, Lamictal 150 mg daily, Seroquel 400 mg at night, Victoza, meloxicam, omeprazole, promethazine, odensetron, chantix 1mg bid, Allergies: Penicillin, bee stings medical history: Hepatitis C, obesity, chronic cough, history of phantom limb s yndrome, cervical neuropathic pain, history of right BKA, COPD, GERD, DJD, Surgical history: Open reduction with internal fixation of fracture, history of right BKA, Drug and alcohol history: Per previous records history of substance abuse treatment including treatment for methamphetamine abuse in the past Legal history: None reported Family psychiatric history: Unknown Social history: Per previous records she apparently had grown up in [facility].? She had a sister who apparently is .? She has lived in individual group homes and nursing homes due to her inability to manage her own self-care.? She does appear to be living by herself at this time.? Her current work status is unknown.? She has an unknown history of trauma. Hospital Course Hospital Course Patient was initially brought on to the neuropsychiatric unit for further treatment however her nursing needs were not managed well here and she was placed on the medical/surgical floor for further assistance through out her hospital stay. Her mental status improved substantially compared to her initial admission and she was able to converse and reported feeling normal. There was no continued evidence of encephalopathy which was suspected to have been related to liver dysfunction. She was agreeable to having home health care in the home and stated that she had not had an server assistant there to help her with her complex medical needs for several years. At the time of discharge, lethality was denied and psychosis was resolving.? Mood and anxiety were well managed.? The patient endorsed a plan to avoid all drugs of abuse and follow up with the aftercare recommendations of the treatment team.? The patient was evaluated and deemed to be absent credible lethality and had achieved the maximum benefit from an inpatient hospitalization, and so was discharged.? Involuntary Hold Information 96 Hour Hold: 96 Hour Involuntary Admission: No Mental Status Exam MSE Comments: Patient was pleasant and cooperative on interview. She was alert and oriented to person place and time. She was sitting up in her hospital bed and appeared in no acute distress. Her mood was described as good. Her affect was euthymic today. Her thought process was linear logical and goal-directed. Her thought content revealed no evidence of suicidal or homicidal ideation. She did not appear to be responding to internal stimuli. There was no clear evidence of delusional thinking. Her attention span was adequate. Her recent and remote memory appeared grossly intact. Her insight was improved. Her judgment appears to be improving. Her impulse control appeared fair. Discharge Data Studies Completed and Pending: Completed Studies During Hospitalization Category Date Time Status CT abdomen pelvis wo con [id number] Rout ine Cat Scan 04/24/23 13:[address] head wo con* [id number] Stat Cat Scan 04/23/23 22:29 Completed Pending at discharge Category Date Time Status Lamotrigine (Lami ctal) Level Routin e Lab 04/24/23 13:28 Received Radiology Impressions Head CT 04/23/23 22:29 IMPRESSION: 1. No acute intracranial abnormality. 2. Small-vessel ischemic disease. Abdomen/Pelvis CT 04/24/23 13:05 IMPRESSION: 1. There is some mild hepatic steatosis along with similar biliary ductal prominence extrahepatic predominantly in location. Consider hepatobiliary profile studies. 2. New interval fluid collection or acute inflammatory stranding changes are appreciated. COMMENTS: Consistent with the [employer]'s Incidental Findings Committee white paper (J Am Sugar Radiol 2018): Any incidental renal lesion less than 1 cm or classified as too small to characterize, or any incidental cystic renal lesion characterized as simple-appearing, is likely benign. No follow-up imaging is recommended for these lesions per consensus recommendations based on imaging criteria. Laboratory Results WBC 9.92 10^3/uL (3.2 9-11.43) 04/25/23 04:31 RBC 4.31 10^6/uL (3.8 5-5.65) 04/25/23 04:31 Hgb 12.50 g/dL (11.27 -16.99) 04/25/23 04:31 Hct 38.7 % (36-47) 04/25/23 04:31 MCV 89.8 fl (85-98) 04/25/23 04:31 MCH 29.0 pg (27-33) 04/25/23 04:31 MCHC 32.3 g/dL (30-55) 04/25/23 04:31 RDW 12.3 % (12.1-15.1 ) 04/25/23 04:31 Plt Count 373 10^3/cmm (157 -399) 04/25/23 04:31 MPV 8.6 fL (7.4-10.4) 04/25/23 04:31 Neut % (Auto) 59.4 % 04/25/23 04:31 Lymph % (Auto) 24.7 % 04/25/23 04:31 [place] % (Auto) 10.0 % 04/25/23 04:31 Eos % (Auto) 1.4 % 04/25/23 04:31 Baso % (Auto) 0.9 % 04/25/23 04:31 Neut # (Auto) 5.89 10^3/uL (1.8 -7.7) 04/25/23 04:31 Lymph # (Auto) 2.5 10^3/uL (0.8- 4.8) 04/25/23 04:31 [place] # (Auto) 1.0 10^3/uL (0.2- 0.9) H 04/25/23 04:31 Eos # (Auto) 0.1 10^3/uL (0.0- 0.8) 04/25/23 04:31 Baso # (Auto) 0.1 10^3/uL (0.0- 0.1) 04/25/23 04:31 Nucleated RBC % (a uto) 0 % 04/25/23 04:31 Nucleated RBCs # 0.0 /100WBC 04/25/23 04:31 Sodium 136 mmol/L (136-1 45) 04/25/23 04:31 Potassium 3.1 mmol/L (3.5-5 .1) L 04/25/23 04:31 Chloride 103 mmol/L (98-10 7) 04/25/23 04:31 Carbon Dioxide 22 mmol/L (22-29) 04/25/23 04:31 Anion Gap 14.1 (5-19) 04/25/23 04:31 BUN 20 mg/dL (8-23) 04/25/23 04:31 Creatinine 1.1 mg/dL (0.5-0. 9) H 04/25/23 04:31 GFR Calculation 50.5 mL/min (90-1 30) L 04/25/23 04:31 Glucose 142 mg/dL (65-115 ) H 04/25/23 04:31 POC Glucose 132 mg/dL (70-110 ) H 04/26/23 10:47 Calculated Osmolal ity 287 mOsm/kg (285- 295) 04/25/23 04:31 Calcium 9.1 mg/dL (8.5-10 .5) 04/25/23 04:31 Total Bilirubin 0.4 mg/dL (0.15-1 .2) 04/25/23 04:31 AST 36 U/L (0-32) H 04/25/23 04:31 ALT 42 U/L (0-33) H 04/25/23 04:31 Alkaline Phosphata se 113 U/L (35-105) H 04/25/23 04:31 Ammonia 51 umol/L (11-51) 04/25/23 08:25 Total Protein 5.9 g/dL (6.6-8.7 ) L D 04/25/23 04:31 Albumin 3.4 g/dL (3.5-5.2 ) L 04/25/23 04:31 Globulin 2.5 g/dL (1.3-4.6 ) 04/25/23 04:31 Amylase 21 U/L (28-100) L 04/24/23 13:28 Lipase 24 U/L (13-60) 04/24/23 13:28 Vitamin B12 655 pg/mL (232-12 45) 04/24/23 18:15 TSH 0.36 uIU/mL (0.27 -4.20) 04/23/23 21:14 Urine Color Yellow (Yellow) 04/23/23 21:40 Urine Appearance Clear (CLEAR) 04/23/23 21:40 Urine pH 6 (5-7) 04/23/23 21:40 Ur Specific Gravit y 1.020 (1.005-1.0 30) 04/23/23 21:40 Urine Protein 1+ (Negative) H 04/23/23 21:40 Urine Glucose (UA) Norm (Normal) 04/23/23 21:40 Urine Ketones 3+ (Negative) H 04/23/23 21:40 Urine Blood Neg (Negative) 04/23/23 21:40 Urine Nitrate Negative (Negati ve) 04/23/23 21:40 Urine Bilirubin 1+ (Negative) H 04/23/23 21:40 Urine Urobilinogen 4+ mg/dL (Negativ e) H 04/23/23 21:40 Ur Leukocyte Rosie ase Trace (Negative) H 04/23/23 21:40 Urine RBC Rare /hpf (0-2) 04/23/23 21:40 Urine WBC 0-4 /hpf (0-5) H 04/23/23 21:40 Ur Squamous Epith Cells Rare /hpf (0-5) 04/23/23 21:40 Amorphous Sediment 1+ /hpf 04/23/23 21:40 Urine Bacteria None /hpf (NONE) 04/23/23 21:40 Urine Mucus 3+ /hpf 04/23/23 21:40 Salicylates 1.5 mg/dL (3-10) L 04/23/23 21:14 Urine Opiates Scre en Negative ng/mL (N egative) 04/23/23 21:40 Acetaminophen < 5.0 ug/mL (10-3 0) L 04/23/23 21:14 Ur Barbiturates Sc reen Negative ng/mL (N egative) 04/23/23 21:40 Ur Phencyclidine S crn Negative ng/mL (N egative) 04/23/23 21:40 Ur Amphetamines Sc reen Negative ng/mL (N egative) 04/23/23 21:40 U Benzodiazepines Scrn Positive ng/mL (N egative) H 04/23/23 21:40 Urine Cocaine Scre en Negative ng/mL (N egative) 04/23/23 21:40 U Marijuana (THC) Screen Negative ng/mL (N egative) 04/23/23 21:40 Ethyl Alcohol < 10 mg/dL (0-10) 04/23/23 21:14 Vitals: Last Vital Signs Temp 97.9 F 04/26/23 13:01 Pulse 81 04/26/23 13:01 Resp 18 04/26/23 13:01 BP 135/83 04/26/23 13:01 Pulse Ox 95 04/26/23 13:01 O2 Del Method Room Air 04/26/23 11:00 Discharge Plan Discharge Patient Disposition: Home Condition: Stable Prescriptions: New nicotine 21 mg/24 hr Patch 24 Hour 1 patch transdermal DAILY Qty: 30 0RF hydroxyzine pamoate 25 mg Capsule 50 mg PO Q6H PRN (Reason: Anxiety) Qty: 100 0RF bupropion HCl 150 mg Tablet Extended Release 24 Hr 150 mg PO DAILY Qty: 30 0RF Xifaxan 550 mg Tablet 550 mg PO BID Qty: 60 0RF lactulose 20 gram/30 mL Solution 20 g PO DAILY Qty: 30 0RF Continued epinephrine [EpiPen 2-Reji] 0.3 mg/0.3 mL auto-injector 0.3 mg IM Q15M PRN (Reason: anaphylaxis) Qty: 2 0RF Rx Instructions: for 2 doses gabapentin 300 mg capsule 300 mg PO TID 90 Days Qty: 270 1RF albuterol sulfate [Ventolin HFA] 90 mcg/actuation HFA aerosol inhaler 1 puff inhalation QID PRN (Reason: shortness of breath or wheezing) Qty: 8.5 3RF benzonatate 200 mg capsule 200 mg PO BID PRN (Reason: cough) Qty: 60 0RF lamotrigine 200 mg tablet 200 mg PO QAM Qty: 30 0RF quetiapine 400 mg tablet 400 mg PO BEDTIME Qty: 7 6RF Rx Instructions: ONLY FILL ONE WEEK AT A TIME. ipratropium-albuterol 0.5 mg-3 mg(2.5 mg base)/3 mL solution for nebulization 3 ml inhalation QID PRN (Reason: wheezing) Qty: 90 2RF meloxicam 15 mg tablet 15 mg PO QAM Qty: 90 1RF (DME) RIGHT BTK prosthetic with supplies See Rx Instructions .Route .MEDSUPPLY Qty: 1 0RF Rx Instructions: As directed Anoro Ellipta 62.5-25 mcg/actuation blister with device 1 inh inhalation DAILY 30 Days Qty: 60 3RF (DME) Rollaid with chair See Rx Instructions .Route .MEDSUPPLY Qty: 1 0RF Rx Instructions: As directed (DME) nebulizer and supplies See Rx Instructions .Route .MEDSUPPLY Qty: 1 0RF Rx Instructions: As directed ondansetron 4 mg tablet,disintegrating 4 mg PO Q8H PRN (Reason: nausea and vomiting) Qty: 60 1RF albuterol sulfate 2.5 mg /3 mL (0.083 %) solution for nebulization 2.5 mg inhalation Q4H PRN (Reason: shortness of breath or wheezing) Qty: 180 5RF Victoza 3-Reji 0.6 mg/0.1 mL (18 mg/3 mL) pen injector See Rx Instructions SUBCUT .COMPLEX Qty: 9 2RF Rx Instructions: inject 0.6mg subcutaneously once daily x 7 days; then 1.2mg daily fluoxetine 40 mg capsule 80 mg PO QAM bupropion HCl 150 mg tablet extended release 24 hr 150 mg PO QAM omeprazole 40 mg capsule,delayed release(DR/EC) 40 mg PO QAM varenicline 1 mg tablet 1 mg PO BID promethazine 25 mg tablet 25 mg PO Q6H PRN (Reason: nausea and vomiting) Qty: 20 0RF Discharge Orders: Discharge Order (Routine); Ordered 04/26/23 Ordered By: Rehan Sellers Referrals: [facility] [Other] (?Follow up as a walk in at [facility], walk in hours are Wednesday-Wednesday from 7:30AM-3:00PM, first come, first seen. Once you do this assessment you will be referred for appropriate services.) [facility] [Other] (7 days/week 8am-6pm) Dhara Araiza MD [Staff Physician] - 05/06/23 11:20 am (HEPATIC ENCEPHALOPATHY We have notified your physician's clinic of the need for a follow-up appointment to be scheduled. If you have not heard from them within the next 2 business days, please call them directly. You may also reach out to our optimization manager at [phone] and she can assist you.) Prasad Rebollar MD [Primary Care Provider] - 04/30/23 11:00 am () Discharge Diet: Diabetic Discharge Activity: Resume usual activity Patient Instructions: Bupropion (By mouth), Hydroxyzine (By mouth), Lactulose (By mouth), Rifaximin (By mouth) (Xifaxan), How to Stop Smoking (DC), Hepatic Encephalopathy (DC), Methamphetamine Use Disorder (DC) Discharge Attestations NPU Time Spent in Discharge Care*: less than 30 min Specific Discharge Activities: Specific discharge activities: educating patient and documenting/other paperwork Status at Discharge: Cognitive status at discharge: mildly impaired cognition , Behavioral status at discharge: cooperative , Coding Level of Care Code Acute Chg FW DC note Diagnoses Hallucinations R44.3 Confusion R41.0 Hepatitis C B19.20 Borderline personality disorder F60.3 COPD (chronic obstructive pulmonary disease) J44.9 IV drug user F19.90 Prolonged Q-T interval on ECG R94.31 Schizoaffective disorder, bipolar type F25.0
--- NOTE | 2023-04-26 17:41 | PM.PN ---
Subjective Subjective: Patient states that she feels back to baseline. She adamantly do not denies recent drug use. States the last time she used meth was in September. She reports that she was very sick. Vitals/I&O/Wt Last Vital Signs Temp 97.9 F 04/26/23 13:01 Pulse 81 04/26/23 13:01 Resp 18 04/26/23 13:01 BP 135/83 04/26/23 13:01 Pulse Ox 95 04/26/23 13:01 O2 Del Method Room Air 04/26/23 11:00 04/26/23 04/26/23 04/26/23 06:59 14:59 22:59 Intake Total 480 / 480 Balance 480 / 480 Weight last 48 hrs Weight 101.06 kg Physical Exam Narrative: 63 white female in no acute distress. Patient had tic-like movements. Neuro alert and oriented to person place time and situation nonfocal Heart regular normal S1-S2 without murmurs clicks gallops or rubs Lungs. Rhonchi bilaterally right greater than left. Soft nontender nondistended positive bowel sounds Extremities right BKA no edema. Data 04/25/23 04:31 04/25/23 04:31 A&P Assessment and plan (1) Confusion: Appears to be due to hepatic encephalopathy. Patient was started on lactulose and rifaximin. She returned to normal baseline on this protocol. To follow-up with Dr. Jose G jewell for liver disease and new encephalopathy Continue rifaximin twice daily and lactulose once daily (2) Hepatitis C: As above (3) Hepatic encephalopathy: As above (4) Hx of right BKA: (5) Borderline personality disorder: Discussed with psychiatry. No active psychiatric psychiatric disease or eminent danger to self or others. Okay to discharge (6) Schizoaffective disorder, bipolar type: As above Plan I did discharge reconciliation and medications. Dr. Gomez completed discharge summary because she was technically admitted to [facility]. Attestations Medical Necessity Statement*: Patient to be discharged home today Coding Level of Care Code Acute Code for g Fwd Diagnoses Confusion R41.0 Hepatitis C B19.20 Hepatic encephalopathy K76.82 Hx of right BKA Z89.511 Borderline personality disorder F60.3 Schizoaffective disorder, bipolar type F25.0
[2023-04-30 09:25] LABS: Lamotrigine (Lamictal) Level <0.5 mcg/mL (2.5-15.0)
== END 2023-04-26 14:00 | disposition home or self-care (01) | DRG 885 ==
LOC: ER 04-24 05:43 → NP 04-24 12:39 → MEDSURG 04-25 08:15
PROVIDERS: Emergency Medicine; Psychiatry & Neurology Psychiatry; Student in an Organized Health Care Education/Training Program; Admitting Provider Psychiatry & Neurology Psychiatry; Emergency Provider Emergency Medicine; PCP Family Medicine; Visit Provider Internal Medicine
DX: F25.0 Schizoaffective disorder, bipolar type (principal); F60.3 Borderline personality disorder; Z99.3 Dependence on wheelchair; F17.210 Nicotine dependence, cigarettes, uncomplicated; J44.9 Chronic obstructive pulmonary disease, unspecified; E87.6 Hypokalemia; B18.2 Chronic viral hepatitis C; K76.82 Hepatic encephalopathy; F15.11 Other stimulant abuse, in remission
CPT/HCPCS: 36415; 36416; 51701; 70450; 74176; 80053; 80175; 80306; 80307; 81001; 82140; 82150; 82607; 82962; 83690; 84443; 85025; 93005; 96372; 99285; J1815; J7030; J7040

== ENCOUNTER → 2023-05-06 12:37 | Outpatient (BNVA) | payer MEDICAID, SELFPAY | PROVIDERS: PCP Family Medicine; Visit Provider Family Medicine | DX: B19.20 Unspecified viral hepatitis C without hepatic coma (principal) | CPT/HCPCS: 80053; 82977; 87522; 87902 ==

== ENCOUNTER → 2023-08-06 09:44 | Outpatient (BNVA) | payer SELFPAY ==
[2023-07-29 15:49] VITALS: BP 150/88; BMI 34.8
== END ==
PROVIDERS: PCP Family Medicine; Visit Provider Family Medicine
DX: B19.20 Unspecified viral hepatitis C without hepatic coma (principal)
CPT/HCPCS: 87522

== ENCOUNTER → 2023-09-17 10:25 | Outpatient (BNVA) | payer MEDICAID, SELFPAY ==
[2023-07-29 15:49] VITALS: BP 150/88; BMI 34.8
== END ==
PROVIDERS: PCP Family Medicine; Visit Provider Family Medicine
DX: B19.20 Unspecified viral hepatitis C without hepatic coma (principal)
CPT/HCPCS: 87522

== ENCOUNTER 2023-11-04 11:56 | Emergency (ER) | payer MEDICAID, SELFPAY ==
[2023-07-29 15:49] VITALS: BP 150/88; BMI 34.8
[2023-11-04 12:05] VITALS: BP 105/66; PULSE 98; RESP 21; TEMP 36.7; O2SAT 90; BMI 34.7
--- NOTE | 2023-11-04 12:55 | XR_ITS ---
WS: [id number] Examination: XR chest 1V portable [id number] Reason for Exam: dyspnea/cough Date: November 04, 2023 Comparison: March 19, 2023 Findings: The heart is prominent in size. The mediastinum not widened Chronic infiltrates are identified particularly along the periphery. Definite new dense consolidation is not seen. A superimposed minimal infiltrate may not be identified on this study. There is no overt failure or large effusion Severe chronic changes of the shoulders are noted particularly on the right. Impression: The heart is enlarged. Severe chronic changes are noted within the lungs without new dense consolidat ion..
[2023-11-04] MEDS: ipratropium-albuterol 3 mL Neb INHALATION (13:05)
[2023-11-04 13:07] VITALS: PULSE 87; RESP 16; O2SAT 92
[2023-11-04 13:09] VITALS: PULSE 82
--- NOTE | 2023-11-04 13:24 | ED_ITS ---
HPI - URI/Sore Throat 2 General: Chief Complaint: Upper Respiratory Infection Stated Complaint: Cough Time Seen by Provider: 11/04/23 12:35 History of Present Illness: 63-year-old female presents emergency ro om complaining of shortness of breath and wheezing. Is been going on for the last week or 2. She has nebulizer at home helped somewhat. She has had upper increasingly productive cough denies any hemoptysis no fever no vomiting or diarrhea denies chest pain. MD elicited complaint: fever and cough Onset (ago): week(s) Consistency: constant and progressively worsening Severity: mild Description of mucous: yellow Able to tolerate fluids by mouth: Yes Exacerbating factors: exertion Relieving factors: nothing Associated symptoms: Reports congestion, cough and fever(s); Deny abdominal pain, change in voice, chills, chest pain, diarrhea, epistaxis, ear or mastoid pain, headache(s), myalgias, nasal congestion, nausea, rash, rhinorrhea, short of breath, sinus pain, stiffness, sore throat or vomiting Review of Systems 2 Const: Reports: fever(s); Denies: chills ENMT: Denies: ear or mastoid pain, nasal congestion, epistaxis or sinus pain Card: Denies: chest pain Resp: Denies: dyspnea GI: Denies: abdominal pain, nausea, vomiting or diarrhea : Denies: dysuria, urinary frequency or urinary urgency Musc: Denies: neck pain or back pain Skin/Breast: Denies: rash Neuro: Denies: headache(s) PFSH ED 2 PFSH: Medical History Hepatitis C IV drug user Prolonged Q-T interval on ECG Cervical neuropathic pain Cough Metabolic encephalopathy COPD (chronic obstructive pulmonary disease) Altered mental status Partial small bowel obstruction Pulmonary hypertension Amphetamine addiction Aspiration of foreign body in respiratory tract Interstitial lung disease Respiratory failure with hypoxia Psychiatric care Hepatitis C, chronic Chronic pain syndrome PVD (peripheral vascular disease) with claudication Opioid dependence, in remission Other stimulant dependence, in remission Borderline personality disorder Schizoaffective disorder, bipolar type COPD (chronic obstructive pulmonary disease) Chronic idiopathic pain syndrome History of intravenous drug abuse GERD (gastroesophageal reflux disease) DJD (degenerative joint disease), lumbar DDD (degenerative disc disease), cervical Anxiety Surgical History Hx of fusion of cervical spine Hx of right BKA H/O tubal ligation S/P cholecystectomy Hx of BKA S/P tonsillectomy Family History Father Cancer lung Hypertension Diabetes Mother Hypertension Lung disease Diabetes Sister Diabetes Brother Diabetes Other CAD (coronary artery disease) Denies family history of Clotting disorder Dementia Hyperlipidemia Psychiatric illness Chronic kidney disease (CKD) Anesthesia complication Bleeding disorder Stroke Social History Smoking and tobacco/nicotine status: current every day tobacco/nicotine user cigarettes Years cigarettes smoked: 40 [ Other cigarette details: 1 pack per 6 days] Quit status (tobacco/nicotine): has tried quititng Second hand smoke exposure: Yes Alcohol intake: former Substance/Drug Use: former Date of last use: relapsed and overdosed around Sep, clean since then Lives independently: Yes Household members: none Marital status: Current occupational status: disabled Do you think of yourself as: Straight/Heterosexual Current gender identity: Female Female Reproductive History: Spontaneous abortions: No Physical Exam 2 Const: COMMON NORMALS: alert GENERAL APPEARANCE: cooperative and comfortable ORIENTATION/CONSCIOUSNESS: Yes awake, Yes oriented to person, Yes oriented to place and Yes oriented to time HENMT: COMMON NORMALS: normocephalic, atraumatic and hearing grossly normal bilaterally HEAD & SCALP: normocephalic and atraumatic Resp: COMMON NORMALS: No retractions and No use of accessory muscles A USCULTATION: wheezes Cardio: COMMON NORMALS: regular rate, regular rhythm and No murmurs present (Cardio) RATE: regular rate RHYTHM: regular rhythm GI: COMMON NORMALS: Soft to palpation and No hepatosplenomegaly present A USCULTATION: Yes normoactive bowel sounds PALPATION: Yes Soft to palpation, No Tenderness to palpation present (GI), No Guarding due to palpation present (GI) and Yes No hepatosplenomegaly present Extremity: COMMON NORMALS: normal to inspection, capillary refill normal, no clubbing, cyanosis or edema, no calf tenderness and no pedal edema Neuro: SENSORIUM/ORIENTATION: Yes alert, Yes oriented to person, Yes oriented to place and Yes oriented to time Skin: COMMON NORMALS: no rashes or lesions noted GENERAL SKIN EXAM: no rashes or lesions noted Course 2 Vital Signs: Vital signs: Vital Signs Temperature 98.1 F 11/04/23 12:05 Pulse Rate 69 11/04/23 15:24 Respiratory Rate 16 11/04/23 13:07 Blood Pressure 143/87 11/04/23 15:24 Pulse Oximetry 91 11/04/23 15:24 Oxygen Delivery Me thod Room Air 11/04/23 13:07 MDM - URI/Sore Throat Medical Decision Making Acute exacerbation of COPD. She also has some underlying sleep apnea when she is awake and sitting upright her oxygen sats are 93 to 95% when she dozes off her sats dropped to 86 to 87%. Discharge patient home on a steroid taper as well as doxycycline for 10 days. Follow-up with primary care within a week also need to discuss with her primary care physician evaluation for sleep apnea. Medical Records I reviewed the patient's medical records. Lab Data I reviewed the patient's lab results. 11/04/23 13:21 11/04/23 13:21 Laboratory Results WBC 12.07 10^3/uL (3.29-11.43) H 11/04/23 13:21 RBC 3.80 10^6/uL (3.85-5.65) L 11/04/23 13:21 Hgb 11.30 g/dL (11.27-16.99) 11/04/23 13:21 Hct 35.1 % (36-47) L 11/04/23 13:21 MCV 92.4 fl (85-98) 11/04/23 13:21 MCH 29.7 pg (27-33) 11/04/23 13:21 MCHC 32.2 g/dL (30-55) 11/04/23 13:21 RDW 12.6 % (12.1-15.1) 11/04/23 13:21 Plt Count 351 10^3/cmm (157-399) 11/04/23 13:21 MPV 8.4 fL (7.4-10.4) 11/04/23 13:21 Neut % (Auto) 68.2 % 11/04/23 13:21 Lymph % (Auto) 19.6 % 11/04/23 13:21 [place] % (Auto) 7.4 % 11/04/23 13:21 Eos % (Auto) 3.1 % 11/04/23 13:21 Baso % (Auto) 0.3 % 11/04/23 13:21 Neut # (Auto) 8.24 10^3/uL (1.8-7.7) H 11/04/23 13:21 Lymph # (Auto) 2.4 10^3/uL (0.8-4.8) 11/04/23 13:21 [place] # (Auto) 0.9 10^3/uL (0.2-0.9) 11/04/23 13:21 Eos # (Auto) 0.4 10^3/uL (0.0-0.8) 11/04/23 13:21 Baso # (Auto) 0.0 10^3/uL (0.0-0.1) 11/04/23 13:21 Nucleated RBC % (auto) 0 % 11/04/23 13:21 Nucleated RBCs # 0.0 /100WBC 11/04/23 13:21 Specimen Type Arterial 11/04/23 14:27 Sample Site Radial, left 11/04/23 14:27 ABG pH 7.41 (7.35-7.45) 11/04/23 14:27 ABG pCO2 38.0 mmHg (35-45) 11/04/23 14:27 ABG pO2 64.4 mmHg (80.0-100.0) L 11/04/23 14:27 ABG PO2/FiO2 Ratio 0 11/04/23 14:27 ABG HCO3 23.9 mmol/L (22-26) 11/04/23 14:27 ABG O2 Saturation 93.0 11/04/23 14:27 ABG Base Excess -0.6 mmol/L (-2.0-2.0) 11/04/23 14:27 Darryl Test Pos 11/04/23 14:27 A-a O2 Gradient 4.8 mmHg (5-10) L 11/04/23 14:27 Hematocrit 37.4 % (37-47) 11/04/23 14:27 Hgb O2 Saturation 91.6 % (95-100) L 11/04/23 14:27 Carboxyhemoglobin 1.1 %THgb (0.4-20.1) 11/04/23 14:27 Methemoglobin 0.4 % (0.4-1.5) 11/04/23 14:27 Total Hemoglobin 12.2 g/dL (12-16) 11/04/23 14:27 Sodium 139.0 mmol/L (131-143) 11/04/23 14:27 Potassium 3.8 mmol/L (3.5-5.0) 11/04/23 14:27 Glucose 120.0 mg/dL (70-115) H 11/04/23 14:27 Ionized Calcium 1.2 mmol/L (1.1-1.4) 11/04/23 14:27 O2 Delivery Device Room air 11/04/23 14:27 FiO2 21.0 % 11/04/23 14:27 Spool Cleaner Hand ID Cak 11/04/23 14:27 Sodium 136 mmol/L (136-145) 11/04/23 13:21 Potassium 3.7 mmol/L (3.5-5.1) 11/04/23 13:21 Chloride 102 mmol/L (98-107) 11/04/23 13:21 Carbon Dioxide 22 mmol/L (22-29) 11/04/23 13:21 Anion Gap 15.7 (5-19) 11/04/23 13:21 BUN 8 mg/dL (8-23) 11/04/23 13:21 Creatinine 0.5 mg/dL (0.5-0.9) 11/04/23 13:21 GFR Calculation 125.4 mL/min (90-130) 11/04/23 13:21 Glucose 153 mg/dL (65-115) H 11/04/23 13:21 Calculated Osmolality 283 mOsm/kg (285-295) L 11/04/23 13:21 Calcium 8.5 mg/dL (8.5-10.5) 11/04/23 13:21 Total Bilirubin 0.4 mg/dL (0.15-1.2) 11/04/23 13:21 AST 20 U/L (0-32) 11/04/23 13:21 ALT 8 U/L (0-33) 11/04/23 13:21 Alkaline Phosphatase 108 U/L (35-105) H 11/04/23 13:21 Total Protein 7.0 g/dL (6.6-8.7) 04/04/24 13:21 Albumin 3.3 g/dL (3.5-5.2) L 11/04/23 13:21 Globulin 3.7 g/dL (1.3-4.6) 11/04/23 13:21 All radiology interpretation(s) finalized by discharge Discharge Plan Discharge Patient Disposition: Home Clinical Impression: Acute exacerbation of chronic obstructive pulmonary disease, Apnea, sleep Condition: Stable Prescriptions: New doxycycline hyclate 100 mg capsule 100 mg PO BID 10 Days Qty: 20 0RF prednisone 20 mg tablet 20 mg PO TID Qty: 15 0RF Rx Instructions: 1 p.o. 3 times daily x3 days, 1 p.o. twice daily x2 days, 1 p.o. daily x2 days albuterol sulfate 90 mcg/actuation HFA aerosol inhaler 2 inh INHALATION Q4H PRN (Reason: shortness of breath or wheezing) Qty: 18 0RF No Action epinephrine [EpiPen 2-Reji] 0.3 mg/0.3 mL auto-injector 0.3 mg IM Q15M PRN (Reason: anaphylaxis) Qty: 2 0RF Rx Instructions: for 2 doses albuterol sulfate [Ventolin HFA] 90 mcg/actuation HFA aerosol inhaler 1 puff inhalation QID PRN (Reason: shortness of breath or wheezing) Qty: 8.5 3RF ipratropium-albuterol 0.5 mg-3 mg(2.5 mg base)/3 mL solution for nebulization 3 ml inhalation QID PRN (Reason: wheezing) Qty: 90 2RF meloxicam 15 mg tablet 15 mg PO QAM Qty: 90 1RF gabapentin 300 mg capsule 300 mg PO TID 90 Days Qty: 270 1RF (DME) RIGHT BTK prosthetic with supplies See Rx Instructions .Route .MEDSUPPLY Qty: 1 0RF Rx Instructions: As directed Anoro Ellipta 62.5-25 mcg/actuation blister with device 1 inh inhalation DAILY 30 Days Qty: 60 3RF (DME) nebulizer tubing and mask See Rx Instructions .Route .MEDSUPPLY Qty: 1 0RF Rx Instructions: As directed (DME) Rollaid with chair See Rx Instructions .Route .MEDSUPPLY Qty: 1 0RF Rx Instructions: As directed (DME) nebulizer and supplies See Rx Instructions .Route .MEDSUPPLY Qty: 1 0RF Rx Instructions: As directed albuterol sulfate 2.5 mg /3 mL (0.083 %) solution for nebulization 2.5 mg inhalation Q4H PRN (Reason: shortness of breath or wheezing) Qty: 180 5RF bupropion HCl 150 mg tablet extended release 24 hr 150 mg PO DAILY 14 Days Qty: 14 6RF Rx Instructions: for 14 days (rx filled 10/25/23) fluoxetine 40 mg capsule 80 mg PO QAM 14 Days Qty: 28 6RF Rx Instructions: for 14 days (rx filled 10/25/23) varenicline 1 mg tablet 1 mg PO BID Qty: 56 3RF quetiapine 400 mg tablet 400 mg PO BEDTIME 14 Days Qty: 14 6RF Rx Instructions: for 14 days (rx filled 10/25/23) buprenorphine-naloxone [Suboxone] 8-2 mg film See Rx Instructions .ROUTE .COMPLEX Rx Instructions: TAKE UP TO 1 AND 1/2 FILM PER DAY lamotrigine 200 mg tablet 200 mg PO QAM Rx Instructions: for 14 days (rx filled 10/25/23) benzonatate 200 mg capsule 200 mg PO BID PRN (Reason: Cough) omeprazole 40 mg capsule,delayed release(DR/EC) 40 mg PO DAILY ondansetron 4 mg tablet,disintegrating 4 mg PO Q8H PRN (Reason: Nausea And Vomiting) Victoza 3-Reji 0.6 mg/0.1 mL (18 mg/3 mL) pen injector See Rx Instructions .ROUTE .COMPLEX Rx Instructions: 1.8 mg subcutaneously once daily x 7 days; then 1.2mg daily; mirtazapine 15 mg tablet 15 mg PO BEDTIME Discharge Orders: Discharge ED (Routine); Ordered 11/04/23 Ordered By: Jasen Galeano Referrals: Prasad Rebollar MD [Primary Care Provider] - Discharge Diet: Usual diet Discharge Activity: Increase activity as tolerated Patient Instructions: COPD (Chronic Obstructive Pulmonary Disease) (ED), Opioid Safety, Pain Management Activity Restrictions/Additional Instructions: Thank you for choosing [facility] for your healthcare needs today. Please realize this is an emergency room and that we are providing you with a medical screening exam and this may not be complete and all inclusive of all the testing and or work up that you may need to determine your ailment or severity of your illness. It is very important that you follow up as instructed or that you return to the Emergency Department should you have concerns or if your condition changes or worsens in any way. You were seen today for complaints of difficulty breathing or wheezing did improve with nebulizer treatment. At room air oxygen sat was 93% while you are awake. We did notice that when you fell asleep your oxygen sat dropped into the mid 80s. You were given nebulizer and steroid here in the emergency room. Recommend you continue steroid taper as well as antibiotics 1 pill twice a day for 10 days. Use albuterol as needed or your nebulizer. You should follow-up with your doctor within the next week. Additionally it is recommended that you discuss with your doctor evaluation for sleep apnea based on what was observed in the emergency room. Coding Level of Care Code ED Banquet Supervisor for Dorcas Oliver
[2023-11-04] MEDS: dexamethasone 10 mg/mL INJ IM (13:26)
[2023-11-04 13:29] LABS: Basophils % 0.3 %; Eosinophils # 0.4 10^3/uL (0.0-0.8); Eosinophils % 3.1 %; Hematocrit 35.1 % (36-47); Lymphocytes # 2.4 10^3/uL (0.8-4.8); Lymphocytes % 19.6 %; Mean Corpuscular HGB Conc 32.2 g/dL (30-55); Mean Corpuscular Hemoglobin 29.7 pg (27-33); Mean Corpuscular Volume 92.4 fl (85-98); Mean Platelet Volume 8.4 fL (7.4-10.4); Monocytes # 0.9 10^3/uL (0.2-0.9); Monocytes % 7.4 %; Neutrophils # 8.24 10^3/uL (1.8-7.7); Neutrophils % 68.2 %; Nucleated Red Blood Cells % 0 %; Platelet Count 351 10^3/cmm (157-399); Red Cell Distribution Width 12.6 % (12.1-15.1); White Blood Count 12.07 10^3/uL (3.29-11.43)
[2023-11-04 13:45] LABS: Alanine Aminotransferase 8 U/L (0-33); Albumin Level 3.3 g/dL (3.5-5.2); Alkaline Phosphatase 108 U/L (35-105); Anion Gap 15.7 (5-19); Aspartate Amino Transferase 20 U/L (0-32); Blood Urea Nitrogen 8 mg/dL (8-23); Calcium 8.5 mg/dL (8.5-10.5); Carbon Dioxide 22 mmol/L (22-29); Chloride 102 mmol/L (98-107); Creatinine Clr Calc Pharmacy 139.1288; Globulin 3.7 g/dL (1.3-4.6); Glomerular Filtration Rate 125.4 mL/min (90-130); Glucose 153 mg/dL (65-115); Osmolality Calculated 283 mOsm/kg (285-295); Potassium 3.7 mmol/L (3.5-5.1); Sodium 136 mmol/L (136-145); Total Bilirubin 0.4 mg/dL (0.15-1.2)
--- NOTE | 2023-11-04 13:50 | PC.PHAR ---
pt states she takes care of her own medications-pt states she has been out of her victoza for about 2 weeks-pt states she hasnt started or filled her mirtazapine 15mg hs written on 10/03/23 pt states she ran out of money to be able to get those two medications filled as of 11/04/23
[2023-11-04 14:39] LABS: ABG PH Result 7.41 (7.35-7.45); Alveolar-Arterial Oxygen Gradi 4.8 mmHg (5-10); Arterial Blood Gas Hematocrit 37.4 % (37-47); Base Excess ABG -0.6 mmol/L (-2.0-2.0); Blood Gas Allen Test Pos; Blood Gas Operator Identificat CAK; Blood Gas Sample Site Radial, left; Blood Gas Sample Type Arterial; Carboxyhemoglobin 1.1 %THgb (0.4-20.1); HCO3 ABG 23.9 mmol/L (22-26); HGB O2 Sat 91.6 % (95-100); Ionized Calcium Level - ABG 1.2 mmol/L (1.1-1.4); Methemoglobin 0.4 % (0.4-1.5); Oxygen Device ROOM AIR; PO2 ABG 64.4 mmHg (80.0-100.0); PO2 FiO2 Ratio Arterial Blood 0; Potassium Level - ABG 3.8 mmol/L (3.5-5.0); Total Hemoglobin 12.2 g/dL (12-16)
[2023-11-04 15:24] VITALS: BP 143/87; PULSE 69; O2SAT 91
== END 2023-11-04 15:25 | disposition home or self-care (01) ==
PROVIDERS: Emergency Provider Family Medicine; PCP Family Medicine
DX: J44.1 Chronic obstructive pulmonary disease with (acute) exacerbation (principal); G47.30 Sleep apnea, unspecified; F17.210 Nicotine dependence, cigarettes, uncomplicated; Z89.511 Acquired absence of right leg below knee; Z86.19 Personal history of other infectious and parasitic diseases
CPT/HCPCS: 36415; 36600; 71045; 80051; 80053; 82330; 82805; 85025; 94640; 96372; 99284; J1100

== ENCOUNTER 2023-11-06 00:44 | Emergency (ER) | payer MEDICAID, SELFPAY ==
[2023-07-29 15:49] VITALS: BP 150/88; BMI 34.8
[2023-11-06 00:45] VITALS: BP 152/66; PULSE 83; RESP 16; TEMP 37.4; O2SAT 92; BMI 34.7
--- NOTE | 2023-11-06 00:50 | XRR_ITS ---
PROCEDURE INFORMATION: Exam: XR Chest Exam date and time: 11/06/2023 12:53 AM Age: 63 years old Clinical indication: Cough and shortness of breath; Patient HX: Cough with SOB. History of copd. ; Additional info: Dyspnea TECHNIQUE: Imaging protocol: Radiologic exam of the chest. Views: 1 view. COMPARISON: CR XR chest 1V portable [id number] 11/04/2023 1:36 PM FINDINGS: Lungs: Mild diffuse interstitial prominence is stable. No new pulmonary opacities are seen. No pulmonary consolidation is identified. Pleural spaces: No definitive pleural effusion or pneumothorax. Heart/Mediastinum: The heart is magnified and likely enlarged. The cardiomediastinal silhouette is not significantly changed. Bones/joints: No acute osseous abnormalities are seen. XR/XR chest 1V portable [id number] IMPRESSION: Stable radiographic appearance of the chest compared to 11/04/2023.
[2023-11-06 01:02] LABS: Basophils % 0.2 %; Hematocrit 35.1 % (36-47); Lymphocytes # 0.7 10^3/uL (0.8-4.8); Mean Corpuscular HGB Conc 33.3 g/dL (30-55); Mean Corpuscular Hemoglobin 30.3 pg (27-33); Mean Corpuscular Volume 90.9 fl (85-98); Mean Platelet Volume 8.4 fL (7.4-10.4); Monocytes # 0.4 10^3/uL (0.2-0.9); Monocytes % 2.2 %; Neutrophils # 15.18 10^3/uL (1.8-7.7); Neutrophils % 92.1 %; Nucleated Red Blood Cells % 0 %; Platelet Count 437 10^3/cmm (157-399); Red Blood Count 3.86 10^6/uL (3.85-5.65); Red Cell Distribution Width 12.5 % (12.1-15.1); White Blood Count 16.49 10^3/uL (3.29-11.43)
--- NOTE | 2023-11-06 01:06 | ED_ITS ---
HPI - SOB/Dyspnea 2 General: Chief Complaint: Shortness of Breath/Dyspnea Stated Complaint: SOB Time Seen by Provider: 11/06/23 00:50 History of Present Illness: HPI Narrative: Patient presents to the ER with complaining shortness of breath coughing and wheezing. Patient was just in ER 2 days ago but sent home with acute aspiration of COPD with prescriptions for doxycycline and a steroid taper. Patient says she gets coughing so hard tonight she could not catch her breath and then she called 911 and to be run back into the hospital. Patient says she does not have oxygen at home. Review of Systems 2 General: Reports: 10 or more systems reviewed and unremarkable except in HPI and below PFSH ED 2 PFS: Medical History (Updated 11/06/23 @ 01:44 by Alexy Galeas DO) Hepatitis C IV drug user Prolonged Q-T interval on ECG Cervical neuropathic pain Cough Metabolic encephalopathy COPD (chronic obstructive pulmonary disease) Altered mental status Partial small bowel obstruction Pulmonary hypertension Amphetamine addiction Aspiration of foreign body in respiratory tract Interstitial lung disease Respiratory failure with hypoxia Psychiatric care Hepatitis C, chronic Chronic pain syndrome PVD (peripheral vascular disease) with claudication Opioid dependence, in remission Other stimulant dependence, in remission Borderline personality disorder Schizoaffective disorder, bipolar type COPD (chronic obstructive pulmonary disease) Chronic idiopathic pain syndrome History of intravenous drug abuse GERD (gastroesophageal reflux disease) DJD (degenerative joint disease), lumbar DDD (degenerative disc disease), cervical Anxiety Surgical History Hx of fusion of cervical spine Hx of right BKA H/O tubal ligation S/P cholecystectomy Hx of BKA S/P tonsillectomy Family History Father Cancer lung Hypertension Diabetes Mother Hypertension Lung disease Diabetes Sister Diabetes Brother Diabetes Other CAD (coronary artery disease) Denies family history of Clotting disorder Dementia Hyperlipidemia Psychiatric illness Chronic kidney disease (CKD) Anesthesia complication Bleeding disorder Stroke Social History Smoking and tobacco/nicotine status: current every day tobacco/nicotine user cigarettes Years cigarettes smoked: 40 [ Other cigarette details: 1 pack per 6 days] Quit status (tobacco/nicotine): has tried quititng Second hand smoke exposure: Yes Alcohol intake: former Substance/Drug Use: former Date of last use: relapsed and overdosed around Sep, clean since then Lives independently: Yes Household members: none Marital status: Current occupational status: disabled Do you think of yourself as: Straight/Heterosexual Current gender identity: Female Female Reproductive History: Spontaneous abortions: No Physical Exam 2 Const: COMMON NORMALS: no acute distress, average body habitus, patient oriented x3, no limitations, healthy appearing, alert and well nourished HENMT: COMMON NORMALS: normocephalic, atraumatic, hearing grossly normal bilaterally, external ears normal, Normal external nose present, moist oral mucous membranes and oropharynx normal HEAD & SCALP: normocephalic and atraumatic NOSE: Normal external nose present EXTERNAL EAR: Yes external ears normal Neck/C-Spine: COMMON NORMALS: no JVD Chest: COMMONS NORMALS: normal inspection of the chest and normal palpation of entire chest wall Resp: COMMON NORMALS: normal respiratory effort, No retractions, No use of accessory muscles and clear to auscultation bilaterally AUSCULTATION: clear to auscultation bilaterally Cardio: COMMON NORMALS: no JVD, regular rate, regular rhythm, S1 normal heart sound present, S2 normal heart sound present, No gallops present (Cardio), No clicks present (Cardio), No murmurs present (Cardio) and No rub (Cardio) R ATE: regular rate RHYTHM: regular rhythm HEART SOUNDS: S1 normal heart sound present and S2 normal heart sound present GI: COMMON NORMALS: Normal to inspection, nondistended, normoactive bowel sounds present, Soft to palpation, non-tender and No hepatosplenomegaly present PALPATION: Yes Soft to palpation and Yes No hepatosplenomegaly present Neuro: COMMON NORMALS: patient oriented x3 SENSORIUM/ORIENTATION: Yes alert Course 2 Vital Signs: Vital signs: Vital Signs Temperature 99.4 F 11/06/23 00:45 Pulse Rate 83 11/06/23 00:45 Respiratory Rate 16 11/06/23 00:45 Blood Pressure 152/66 11/06/23 00:45 Pulse Oximetry 88 L 11/06/23 01:21 Oxygen Delivery Me thod Nasal Cannula 11/06/23 00:45 Oxygen Flow Rate 2 11/06/23 01:21 MDM - SOB/Dyspnea Medical Decision Making Patient to repeat CBC CMP and chest x-ray. All of which were essentially benign. CBC had white count slightly elevated at 16.4 probably due to patient's steroid use. Patient qualified for home oxygen because she failed her home oxygen study. Patient be placed on 2 L of oxygen as needed. Patient be discharged home to follow-up with her PCP Differential Diagnosis Likely acute exacerbation of chronic obstructive airways disease; Unlikely congestive heart failure, community acquired pneumonia, asthma with exacerbation or pulmonary embolism Medical Records I reviewed the patient's medical records. Lab Data 11/06/23 00:54 11/06/23 00:54 Labs/Radiology: Radiology Impressions Chest X-Ray 11/06/23 00:50 IMPRESSION: Stable radiographic appearance of the chest compared to 11/04/2023. Laboratory Results WBC 16.49 10^3/uL (3.29-11.43) H 11/06/23 00:54 RBC 3.86 10^6/uL (3.85-5.65) 11/06/23 00:54 Hgb 11.70 g/dL (11.27-16.99) 11/06/23 00:54 Hct 35.1 % (36-47) L 11/06/23 00:54 MCV 90.9 fl (85-98) 11/06/23 00:54 MCH 30.3 pg (27-33) 11/06/23 00:54 MCHC 33.3 g/dL (30-55) 11/06/23 00:54 RDW 12.5 % (12.1-15.1) 11/06/23 00:54 Plt Count 437 10^3/cmm (157-399) H 11/06/23 00:54 MPV 8.4 fL (7.4-10.4) 11/06/23 00:54 Neut % (Auto) 92.1 % 11/06/23 00:54 Lymph % (Auto) 4.0 % 11/06/23 00:54 Kaufman % (Auto) 2.2 % 11/06/23 00:54 Eos % (Auto) 0.0 % 11/06/23 00:54 Baso % (Auto) 0.2 % 11/06/23 00:54 Neut # (Auto) 15.18 10^3/uL (1.8-7.7) H 11/06/23 00:54 Lymph # (Auto) 0.7 10^3/uL (0.8-4.8) L 11/06/23 00:54 Kaufman # (Auto) 0.4 10^3/uL (0.2-0.9) 11/06/23 00:54 Eos # (Auto) 0.0 10^3/uL (0.0-0.8) 11/06/23 00:54 Baso # (Auto) 0.0 10^3/uL (0.0-0.1) 11/06/23 00:54 Nucleated RBC % (auto) 0 % 11/06/23 00:54 Nucleated RBCs # 0.0 /100WBC 11/06/23 00:54 Sodium 138 mmol/L (136-145) 11/06/23 00:54 Potassium 4.0 mmol/L (3.5-5.1) 11/06/23 00:54 Chloride 104 mmol/L (98-107) 11/06/23 00:54 Carbon Dioxide 21 mmol/L (22-29) L 11/06/23 00:54 Anion Gap 17.0 (5-19) 11/06/23 00:54 BUN 11 mg/dL (8-23) 11/06/23 00:54 Creatinine 0.6 mg/dL (0.5-0.9) 11/06/23 00:54 GFR Calculation 101.6 mL/min (90-130) 11/06/23 00:54 Glucose 213 mg/dL (65-115) H 11/06/23 00:54 Calculated Osmolality 292 mOsm/kg (285-295) 11/06/23 00:54 Calcium 9.4 mg/dL (8.5-10.5) 11/06/23 00:54 Total Bilirubin 0.2 mg/dL (0.15-1.2) 11/06/23 00:54 AST 18 U/L (0-32) 11/06/23 00:54 ALT 15 U/L (0-33) 11/06/23 00:54 Alkaline Phosphatase 115 U/L (35-105) H 11/06/23 00:54 Total Protein 7.5 g/dL (6.6-8.7) 11/06/23 00:54 Albumin 3.7 g/dL (3.5-5.2) 11/06/23 00:54 Globulin 3.8 g/dL (1.3-4.6) 11/06/23 00:54 All radiology interpretation(s) finalized by discharge Discharge Plan Discharge Patient Disposition: Home Clinical Impression: Acute exacerbation of chronic obstructive airways disease, Acute hypoxic respiratory failure Condition: Stable Prescriptions: No Action epinephrine [EpiPen 2-Reji] 0.3 mg/0.3 mL auto-injector 0.3 mg IM Q15M PRN (Reason: anaphylaxis) Qty: 2 0RF Rx Instructions: for 2 doses albuterol sulfate [Ventolin HFA] 90 mcg/actuation HFA aerosol inhaler 1 puff inhalation QID PRN (Reason: shortness of breath or wheezing) Qty: 8.5 3RF ipratropium-albuterol 0.5 mg-3 mg(2.5 mg base)/3 mL solution for nebulization 3 ml inhalation QID PRN (Reason: wheezing) Qty: 90 2RF meloxicam 15 mg tablet 15 mg PO QAM Qty: 90 1RF gabapentin 300 mg capsule 300 mg PO TID 90 Days Qty: 270 1RF (DME) RIGHT BTK prosthetic with supplies See Rx Instructions .Route .MEDSUPPLY Qty: 1 0RF Rx Instructions: As directed Anoro Ellipta 62.5-25 mcg/actuation blister with device 1 inh inhalation DAILY 30 Days Qty: 60 3RF (DME) nebulizer tubing and mask See Rx Instructions .Route .MEDSUPPLY Qty: 1 0RF Rx Instructions: As directed (DME) Rollaid with chair See Rx Instructions .Route .MEDSUPPLY Qty: 1 0RF Rx Instructions: As directed (DME) nebulizer and supplies See Rx Instructions .Route .MEDSUPPLY Qty: 1 0RF Rx Instructions: As directed albuterol sulfate 2.5 mg /3 mL (0.083 %) solution for nebulization 2.5 mg inhalation Q4H PRN (Reason: shortness of breath or wheezing) Qty: 180 5RF bupropion HCl 150 mg tablet extended release 24 hr 150 mg PO DAILY 14 Days Qty: 14 6RF Rx Instructions: for 14 days (rx filled 10/25/23) fluoxetine 40 mg capsule 80 mg PO QAM 14 Days Qty: 28 6RF Rx Instructions: for 14 days (rx filled 10/25/23) varenicline 1 mg tablet 1 mg PO BID Qty: 56 3RF quetiapine 400 mg tablet 400 mg PO BEDTIME 14 Days Qty: 14 6RF Rx Instructions: for 14 days (rx filled 10/25/23) buprenorphine-naloxone [Suboxone] 8-2 mg film See Rx Instructions .ROUTE .COMPLEX Rx Instructions: TAKE UP TO 1 AND 1/2 FILM PER DAY lamotrigine 200 mg tablet 200 mg PO QAM Rx Instructions: for 14 days (rx filled 10/25/23) benzonatate 200 mg capsule 200 mg PO BID PRN (Reason: Cough) omeprazole 40 mg capsule,delayed release(DR/EC) 40 mg PO DAILY ondansetron 4 mg tablet,disintegrating 4 mg PO Q8H PRN (Reason: Nausea And Vomiting) Victoza 3-Reji 0.6 mg/0.1 mL (18 mg/3 mL) pen injector See Rx Instructions .ROUTE .COMPLEX Rx Instructions: 1.8 mg subcutaneously once daily x 7 days; then 1.2mg daily; mirtazapine 15 mg tablet 15 mg PO BEDTIME doxycycline hyclate 100 mg capsule 100 mg PO BID 10 Days Qty: 20 0RF prednisone 20 mg tablet 20 mg PO TID Qty: 15 0RF Rx Instructions: 1 p.o. 3 times daily x3 days, 1 p.o. twice daily x2 days, 1 p.o. daily x2 days albuterol sulfate 90 mcg/actuation HFA aerosol inhaler 2 inh INHALATION Q4H PRN (Reason: shortness of breath or wheezing) Qty: 18 0RF Discharge Orders: Discharge ED (Routine); Ordered 11/06/23 Ordered By: Alexy Galeas Other Ambulatory Orders: DME: Oxygen (Order) Location: None Selected Ordered By: Alexy Galeas Referrals: Prasad Rebollar MD [Primary Care Provider] - 1 week Patient Instructions: COPD, Hypoxia (ED) Activity Restrictions/Additional Instructions: Please finish your doxycycline and steroids as prescribed at the last ER visit. Please use your oxygen as prescribe up to 2 L/min by nasal cannula. Please follow-up with your family practitioner in the next 7 days for further evaluation and treatment. Coding Level of Care Code ED Split [employer] Room Supervisor for Dorcas Oliver
[2023-11-06] MEDS: methylPREDNISolone sod succ 125 mg/2 mL INJ IVP (01:16)
[2023-11-06 01:21] VITALS: O2SAT 87; O2SAT 88; O2SAT 95
[2023-11-06 01:24] LABS: Alanine Aminotransferase 15 U/L (0-33); Albumin Level 3.7 g/dL (3.5-5.2); Alkaline Phosphatase 115 U/L (35-105); Aspartate Amino Transferase 18 U/L (0-32); Blood Urea Nitrogen 11 mg/dL (8-23); Calcium 9.4 mg/dL (8.5-10.5); Carbon Dioxide 21 mmol/L (22-29); Chloride 104 mmol/L (98-107); Creatinine Clr Calc Pharmacy 115.9407; Globulin 3.8 g/dL (1.3-4.6); Glomerular Filtration Rate 101.6 mL/min (90-130); Glucose 213 mg/dL (65-115); Osmolality Calculated 292 mOsm/kg (285-295); Sodium 138 mmol/L (136-145); Total Bilirubin 0.2 mg/dL (0.15-1.2); Total Protein 7.5 g/dL (6.6-8.7)
[2023-11-06 02:45] VITALS: RESP 22; O2SAT 94
--- NOTE | 2023-11-09 13:57 | PC.SOCIAL ---
Pre Cert Pre Cert for O2 has been completed. Cyber Access Confirmation: [id number]
--- NOTE | 2023-11-12 14:54 | PC.SOCIAL ---
Pre-Cert Cyber access redone per request of Nicole @ [email or web address]. Confirmation # [id number].
--- NOTE | 2023-11-16 15:25 | PC.SOCIAL ---
Pre-Cert According to [facility] pre-cert was still not approved. CM called and answered standard questions. Pre-cert approved. CM called Radha @ [facility] and updated.
== END 2023-11-06 03:00 | disposition home or self-care (01) ==
PROVIDERS: Emergency Provider Emergency Medicine; PCP Family Medicine
DX: J44.1 Chronic obstructive pulmonary disease with (acute) exacerbation (principal); J96.01 Acute respiratory failure with hypoxia; F17.210 Nicotine dependence, cigarettes, uncomplicated; Z89.511 Acquired absence of right leg below knee; Z86.19 Personal history of other infectious and parasitic diseases
CPT/HCPCS: 71045; 80053; 85025; 96374; 99284; J2919

== ENCOUNTER 2023-11-21 05:34 | Emergency (ER) | payer MEDICAID, SELFPAY ==
[2023-07-29 15:49] VITALS: BP 150/88; BMI 34.8
[2023-11-21 05:36] VITALS: BP 119/82; PULSE 89; RESP 16; TEMP 37.2; O2SAT 94; BMI 34.7
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
[2023-11-21] MEDS: silver sulfadiazine cream 1% 50 gm 1 APPLIC TOPICAL (06:43)
== END 2023-11-21 09:26 | disposition home or self-care (01) ==
PROVIDERS: Emergency Provider Emergency Medicine; PCP Family Medicine
DX: Z48.00 Encounter for change or removal of nonsurgical wound dressing (principal); F17.210 Nicotine dependence, cigarettes, uncomplicated; Z86.19 Personal history of other infectious and parasitic diseases; J44.9 Chronic obstructive pulmonary disease, unspecified
CPT/HCPCS: 99283

== ENCOUNTER 2024-10-02 21:56 | Emergency (ER) | payer MEDICAID, SELFPAY ==
[2023-07-29 15:49] VITALS: BP 150/88; BMI 34.8
--- NOTE | 2024-10-02 22:03 | ECG_ITS ---
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
--- NOTE | 2024-10-02 22:03 | XRR_ITS ---
PROCEDURE INFORMATION: Exam: XR Chest Exam date and time: 10/02/2024 10:17 PM Age: 64 years old Clinical indication: Shortness of breath; Additional info: SOB TECHNIQUE: Imaging protocol: Radiologic exam of the chest. Views: 1 view. COMPARISON: CR XR chest 1V portable [id number] 11/06/2023 12:53 AM FINDINGS: Lungs: Similar diffuse interstitial pulmonary prominence and fibrotic changes. Pleural spaces: Unremarkable. No pleural effusion. No pneumothorax. Heart/Mediastinum: Unremarkable. No cardiomegaly. Bones/joints: Chronic deformity of the right humeral head. No consolidationThe thoracic spine demonstrates mild degenerative changes at multiple levels. XR/XR chest 1V portable [id number] IMPRESSION: Chronic fibrotic changes in the lungs with no focal consolidation.
[2024-10-02 22:09] VITALS: BP 146/73; PULSE 109; TEMP 36.9; O2SAT 91
[2024-10-02 22:34] LABS: Basophils % 0.3 %; Eosinophils # 0.3 10^3/uL (0.0-0.8); Eosinophils % 2.5 %; Hematocrit 37.5 % (36-47); Lymphocytes # 1.6 10^3/uL (0.8-4.8); Lymphocytes % 13.1 %; Mean Corpuscular HGB Conc 31.7 g/dL (30-55); Mean Corpuscular Hemoglobin 29.3 pg (27-33); Mean Corpuscular Volume 92.4 fl (85-98); Mean Platelet Volume 8.3 fL (7.4-10.4); Monocytes # 0.9 10^3/uL (0.2-0.9); Monocytes % 7.9 %; Neutrophils # 8.97 10^3/uL (1.8-7.7); Neutrophils % 75.7 %; Nucleated Red Blood Cells % 0 %; Platelet Count 304 10^3/cmm (157-399); Red Blood Count 4.06 10^6/uL (3.85-5.65); Red Cell Distribution Width 13.3 % (12.1-15.1); White Blood Count 11.84 10^3/uL (3.29-11.43)
[2024-10-02 23:03] LABS: Alanine Aminotransferase 11 U/L (0-33); Albumin Level 3.8 g/dL (3.5-5.2); Alkaline Phosphatase 125 U/L (35-105); Aspartate Amino Transferase 18 U/L (0-32); Blood Urea Nitrogen 11 mg/dL (8-23); Calcium 9.2 mg/dL (8.5-10.5); Carbon Dioxide 25 mmol/L (22-29); Chloride 102 mmol/L (98-107); Creatinine Clr Calc Pharmacy 120.0423; Globulin 3.6 g/dL (1.3-4.6); Glomerular Filtration Rate 101.3 mL/min (90-130); Glucose 144 mg/dL (65-115); NT Pro B Type Natriuretic Pept 261 pg/mL (0-125); Osmolality Calculated 290 mOsm/kg (285-295); Sodium 139 mmol/L (136-145); Total Bilirubin 0.4 mg/dL (0.15-1.2); Total Protein 7.4 g/dL (6.6-8.7)
--- NOTE | 2024-10-03 02:24 | ED_ITS ---
HPI - SOB/Dyspnea 2 General: Chief Complaint: Shortness of Breath/Dyspnea Stated Complaint: SOB Time Seen by Provider: 10/03/24 02:20 History of Present Illness: HPI Narrative: Patient presents to the ER with complaints of shortness of breath and cough. She says she does not use home oxygen because she got better and the doctor took it away but now she think she needs it again. EMS gave her 5 mg of Versed that butyryl treatment on route. Patient does appear anxious at this time. Personal's heart rate is 109 bpm, her O2 sat is 91% room air. Patient does states she has been having fever and chills and productive cough.. Related Data Previous Rx's ?Medication ?Instructions ?Recorded epinephrine 0.3 mg/0.3 mL 0.3 mg (0.3 mL) IM Q15M PRN 12/04/22 injection, auto-injector (EpiPen anaphylaxis #2 ea 2-Reji) Rollaid with chair #1 ea 02/03/23 nebulizer and supplies #1 ea 02/04/23 albuterol sulfate 2.5 mg/3 mL 2.5 mg (3 mL) inhalation Q4H PRN 03/15/23 (0.083 %) solution for nebulization shortness of breat h or wheezing #180 mL albuterol sulfate 90 mcg/actuation 1 puff inhalation Q ID PRN 03/31/23 aerosol inhaler (Ventolin HFA) shortness of breath or wheezing #8.5 grams nebulizer tubing and mask #1 ea 06/02/23 pen needle, diabetic 32 gauge x #100 ea 01/07/24 5/32 umeclidinium 62.5 mcg-vilanterol 1 inh inhalation ALYSHA Y 30 days #60 02/04/24 25 mcg/actuation powdr for ea inhalation (Anoro Ellipta) ipratropium 0.5 mg-albuterol 3 mg 3 ml inhalation QID PRN wheezing 03/01/24 (2.5 mg base)/3 mL nebulization #90 mL soln liraglutide 0.6 mg/0.1 mL (18 mg/3 See Rx Instructions .Route 03/01/24 mL) subcutaneous pen injector .COMPLEX #9 mL (Victoza 3-Reji) wheelchair #1 ea 03/01/24 RIGHT BTK prosthetic with supplies #1 ea 03/14/24 bupropion HCl 150 mg 24 hr tablet, 150 mg PO DAILY #30 tabs 05/04/24 extended release fluoxetine 40 mg capsule 80 mg (2 x 40 mg) PO QAM 30 days 05/04/24 #60 caps lamotrigine 200 mg tablet 200 mg PO QAM #30 tabs 05/04 mirtazapine 15 mg tablet 15 mg PO .qhs #30 tabs 05/04 quetiapine 400 mg tablet 400 mg PO BEDTIME #30 tabs 1 ondansetron 4 mg disintegrating 4 mg PO Q8H PRN Nausea And 08/21/24 tablet Vomiting #30 tabs meloxicam 15 mg tablet See Rx Instructions .Route 0 09/05/24 .COMPLEX #30 tabs omeprazole 40 mg capsule,delayed See Rx Instructions . Route 09/05/24 release .COMPLEX #90 caps gabapentin 300 mg capsule 300 mg PO TID #90 caps 09/22 Allergies Allergy/AdvReac Type Severity Reaction Status Date / Time bee venom protein (honey bee) Allergy ALGY-Anaphy Verified 10/02/24 22:22 laxis Penicillins Allergy ALGY-Rash Verified 10/02/24 22:22 venom-wasp protein Allergy ALGY-Anaphy Verified 10/02/24 22:22 laxis Review of Systems 2 General: Reports: 10 or more systems reviewed and unremarkable except in HPI and below PFSH ED 2 PFSH: Medical History Chronic lower back pain Hepatitis C IV drug user Prolonged Q-T interval on ECG Cervical neuropathic pain Cough Metabolic encephalopathy COPD (chronic obstructive pulmonary disease) Altered mental status Partial small bowel obstruction Pulmonary hypertension Amphetamine addiction Aspiration of foreign body in respiratory tract Interstitial lung disease Respiratory failure with hypoxia Psychiatric care Hepatitis C, chronic Chronic pain syndrome PVD (peripheral vascular disease) with claudication Opioid dependence, in remission Other stimulant dependence, in remission Borderline personality disorder Schizoaffective disorder, bipolar type COPD (chronic obstructive pulmonary disease) Chronic idiopathic pain syndrome History of intravenous drug abuse GERD (gastroesophageal reflux disease) DJD (degenerative joint disease), lumbar DDD (degenerative disc disease), cervical Anxiety Surgical History Hx of fusion of cervical spine Hx of right BKA H/O tubal ligation S/P cholecystectomy Hx of BKA S/P tonsillectomy Family History Father Cancer lung Hypertension Diabetes Mother Hypertension Lung disease Diabetes Sister Diabetes Brother Diabetes Other CAD (coronary artery disease) Denies family history of Clotting disorder Dementia Hyperlipidemia Psychiatric illness Chronic kidney disease (CKD) Anesthesia complication Bleeding disorder Stroke Social History Smoking and tobacco/nicotine status: current every day tobacco/nicotine user cigarettes Years cigarettes smoked: 40 [ Other cigarette details: 1 pack per 6 days] Quit status (tobacco/nicotine): has tried quititng Second hand smoke exposure: Yes Alcohol intake: former Substance/Drug Use: former Date of last use: relapsed and overdosed around Sep, clean since then Lives independently: Yes Household members: none Marital status: Current occupational status: disabled Do you think of yourself as: Straight/Heterosexual Current gender identity: Female Female Reproductive History: Spontaneous abortions: No Physical Exam 2 Const: COMMON NORMALS: no acute distress, average body habitus, patient oriented x3, no limitations, healthy appearing, alert and well nourished HENMT: COMMON NORMALS: normocephalic, atraumatic, hearing grossly normal bilaterally, external ears normal, Normal external nose present, moist oral mucous membranes and oropharynx normal HEAD & SCALP: normocephalic and atraumatic NOSE: Normal external nose present EXTERNAL EAR: Yes external ears normal Neck/C-Spine: COMMON NORMALS: no JVD Chest: COMMONS NORMALS: normal inspection of the chest and normal palpation of entire chest wall Resp: COMMON NORMALS: normal respiratory effort, No retractions and No use of accessory muscles; negative for clear to auscultation bilaterally (Rhonchi bilaterally) A USCULTATION: not clear to auscultation bilaterally (Rhonchi bilaterally) Cardio: COMMON NORMALS: no JVD, regular rate, regular rhythm, S1 normal heart sound present, S2 normal heart sound present, No gallops present (Cardio), No clicks present (Cardio), No murmurs present (Cardio) and No rub (Cardio) R ATE: regular rate RHYTHM: regular rhythm HEART SOUNDS: S1 normal heart sound present and S2 normal heart sound present Neuro: COMMON NORMALS: patient oriented x3 SENSORIUM/ORIENTATION: Yes alert Course 2 Vital Signs: Vital signs: Vital Signs Temperature 98.4 F 10/02/24 22:09 Pulse Rate 77 10/03/24 03:28 Respiratory Rate 18 10/03/24 03:28 Blood Pressure 132/76 10/03/24 03:28 Pulse Oximetry 93 10/03/24 04:48 Oxygen Delivery Me thod Nasal Cannula 10/03/24 03:28 Oxygen Flow Rate 4 10/03/24 04:48 MDM - SOB/Dyspnea Medical Decision Making Lab work was reviewed as well as chest x-ray, all of which was essentially showed no positive findings. Patient continued to be on room air saturation of 92+ percent. Patient will be discharged home. Medical Records I reviewed the patient's medical records. Lab Data I reviewed the patient's lab results. 10/02/24 22:21 10/02/24 22:21 Labs/Radiology: Radiology Impressions Chest X-Ray 10/02/24 22:03 IMPRESSION: Chronic fibrotic changes in the lungs with no focal consolidation. Laboratory Results WBC 11.84 10^3/uL (3.29-11.43) H 10/02/24 22:21 RBC 4.06 10^6/uL (3.85-5.65) 10/02/24 22:21 Hgb 11.90 g/dL (11.27-16.99) 10/02/24 22:21 Hct 37.5 % (36-47) 10/02/24 22:21 MCV 92.4 fl (85-98) 10/02/24 22:21 MCH 29.3 pg (27-33) 10/02/24 22:21 MCHC 31.7 g/dL (30-55) 10/02/24 22:21 RDW 13.3 % (12.1-15.1) 10/02/24 22:21 Plt Count 304 10^3/cmm (157-399) 10/02/24 22:21 MPV 8.3 fL (7.4-10.4) 10/02/24 22:21 Neut % (Auto) 75.7 % 10/02/24 22:21 Lymph % (Auto) 13.1 % 10/02/24 22:21 [place] % (Auto) 7.9 % 10/02/24 22:21 Eos % (Auto) 2.5 % 10/02/24 22:21 Baso % (Auto) 0.3 % 10/02/24 22:21 Neut # (Auto) 8.97 10^3/uL (1.8-7.7) H 10/02/24 22:21 Lymph # (Auto) 1.6 10^3/uL (0.8-4.8) 10/02/24 22:21 [place] # (Auto) 0.9 10^3/uL (0.2-0.9) 10/02/24 22:21 Eos # (Auto) 0.3 10^3/uL (0.0-0.8) 10/02/24 22:21 Baso # (Auto) 0.0 10^3/uL (0.0-0.1) 10/02/24 22:21 Nucleated RBC % (auto) 0 % 10/02/24 22:21 Nucleated RBCs # 0.0 /100WBC 10/02/24 22:21 Sodium 139 mmol/L (136-145) 10/02/24 22:21 Potassium 4.0 mmol/L (3.5-5.1) 10/02/24 22:21 Chloride 102 mmol/L (98-107) 10/02/24 22:21 Carbon Dioxide 25 mmol/L (22-29) 10/02/24 22:21 Anion Gap 16.0 (5-19) 10/02/24 22:21 BUN 11 mg/dL (8-23) 10/02/24 22:21 Creatinine 0.6 mg/dL (0.5-0.9) 10/02/24 22:21 GFR Calculation 101.3 mL/min (90-130) 10/02/24 22:21 Glucose 144 mg/dL (65-115) H 10/02/24 22:21 Calculated Osmolality 290 mOsm/kg (285-295) 10/02/24 22:21 Calcium 9.2 mg/dL (8.5-10.5) 10/02/24 22:21 Total Bilirubin 0.4 mg/dL (0.15-1.2) 10/02/24 22:21 AST 18 U/L (0-32) 10/02/24 22:21 ALT 11 U/L (0-33) 10/02/24 22:21 Alkaline Phosphatase 125 U/L (35-105) H 10/02/24 22:21 NT-Pro-B Natriuret Pep 261 pg/mL (0-125) H 10/02/24 22:21 Total Protein 7.4 g/dL (6.6-8.7) 10/02/24 22:21 Albumin 3.8 g/dL (3.5-5.2) 10/02/24 22:21 Globulin 3.6 g/dL (1.3-4.6) 10/02/24 22:21 Influenza A (PCR) Negative (Negative) 10/03/24 02:37 Influenza Type B (PCR) Negative (Negative) 10/03/24 02:37 RSV (PCR) Negative (Negative) 10/03/24 02:37 SARS-CoV-2 (PCR) Negative (Negative) 10/03/24 02:37 All radiology interpretation(s) finalized by discharge Discharge Plan Discharge Patient Disposition: Home Clinical Impression: Anxiety, Shortness of breath Condition: Stable Prescriptions: No Action epinephrine [EpiPen 2-Reji] 0.3 mg/0.3 mL auto-injector 0.3 mg IM Q15M PRN (Reason: anaphylaxis) Qty: 2 0RF Rx Instructions: for 2 doses albuterol sulfate [Ventolin HFA] 90 mcg/actuation HFA aerosol inhaler 1 puff inhalation QID PRN (Reason: shortness of breath or wheezing) Qty: 8.5 3RF (DME) nebulizer tubing and mask See Rx Instructions .Route .MEDSUPPLY Qty: 1 0RF Rx Instructions: As directed ipratropium-albuterol 0.5 mg-3 mg(2.5 mg base)/3 mL solution for nebulization 3 ml inhalation QID PRN (Reason: wheezing) Qty: 90 2RF Victoza 3-Reji 0.6 mg/0.1 mL (18 mg/3 mL) pen injector See Rx Instructions .ROUTE .COMPLEX Qty: 9 2RF Dose Instruction: inject 1.8mg SUBCUTANEOUSLY ONCE DAILY FOR SEVEN DAYS, THEN 1.2mg daily thereafter Rx Instructions: inject 1.8mg SUBCUTANEOUSLY ONCE DAILY FOR SEVEN DAYS, THEN 1.2mg daily thereafter (DME) wheelchair See Rx Instructions .Route .MEDSUPPLY Qty: 1 0RF Rx Instructions: As directed bupropion HCl 150 mg tablet extended release 24 hr 150 mg PO DAILY Qty: 30 6RF fluoxetine 40 mg capsule 80 mg PO QAM 30 Days Qty: 60 6RF lamotrigine 200 mg tablet 200 mg PO QAM Qty: 30 6RF mirtazapine 15 mg tablet 15 mg PO .qhs Qty: 30 5RF quetiapine 400 mg tablet 400 mg PO BEDTIME Qty: 30 6RF (DME) Rollaid with chair See Rx Instructions .Route .MEDSUPPLY Qty: 1 0RF Rx Instructions: As directed (DME) nebulizer and supplies See Rx Instructions .Route .MEDSUPPLY Qty: 1 0RF Rx Instructions: As directed albuterol sulfate 2.5 mg /3 mL (0.083 %) solution for nebulization 2.5 mg inhalation Q4H PRN (Reason: shortness of breath or wheezing) Qty: 180 5RF (DME) pen needle, diabetic 32 gauge x 5/32 needle See Rx Instructions .Route Qty: 100 2RF Rx Instructions: 1 x daily Anoro Ellipta 62.5-25 mcg/actuation blister with device 1 inh inhalation DAILY 30 Days Qty: 60 3RF (DME) RIGHT BTK prosthetic with supplies See Rx Instructions .Route .MEDSUPPLY Qty: 1 0RF Rx Instructions: As directed ondansetron 4 mg tablet,disintegrating 4 mg PO Q8H PRN (Reason: Nausea And Vomiting) Qty: 30 0RF meloxicam 15 mg tablet See Rx Instructions .ROUTE .COMPLEX Qty: 30 1RF Dose Instruction: TAKE ONE TABLET BY MOUTH EVERY MORNING Rx Instructions: TAKE ONE TABLET BY MOUTH EVERY MORNING omeprazole 40 mg capsule,delayed release(DR/EC) See Rx Instructions .ROUTE .COMPLEX Qty: 90 1RF Dose Instruction: TAKE ONE CAPSULE BY MOUTH DAILY Rx Instructions: TAKE ONE CAPSULE BY MOUTH DAILY gabapentin 300 mg capsule 300 mg PO TID Qty: 90 0RF Discharge Orders: Discharge ED (Routine); Ordered 10/03/24 Ordered By: Alexy Galeas Other Ambulatory Orders: DME: Oxygen (Order) Location: None Selected Ordered By: Alexy Galeas Referrals: Prasad Rebollar MD [Primary Care Provider] - 1 week Patient Instructions: Anxiety (ED), Shortness of Breath (ED) Activity Restrictions/Additional Instructions: You have qualified for home oxygen at 2 L/min while at rest and 4 L/min with exertion, please use it as directed. Thank you for choosing [facility] for your healthcare needs today. Please realize that you were seen in the emergency department and that we are providing you with an emergency medical screening exam and this may not be a complete and all exclusive of all testing and/or medical workup we may need to determine your element or severity of your illness. It is very important that you follow-up as instructed with your primary care provider or specialist for the additional evaluation and to discuss your medical treatment plan. You may return to the emergency department should you have concerns or if your condition changes or worsens in any way. Print Language: Nepali Coding Level of Care Code ED Gro[employer] Supervisor for Dorcas Oliver
[2024-10-03 02:33] VITALS: BP 132/76; PULSE 90; RESP 20; O2SAT 92
[2024-10-03 03:20] LABS: Influenza A NEGATIVE (Negative); Influenza B NEGATIVE (Negative); Respiratory Syncytial Virus Ce NEGATIVE (Negative); SARS-CoV-2 PCR NEGATIVE (Negative)
[2024-10-03 03:28] VITALS: BP 132/76; PULSE 77; RESP 18; O2SAT 93
[2024-10-03 04:48] VITALS: O2SAT 83; O2SAT 92; O2SAT 93
[2024-10-03 05:08] VITALS: PULSE 75; RESP 16; O2SAT 93
[2024-10-03 06:00] VITALS: BP 133/80; PULSE 72; RESP 18; O2SAT 95
== END 2024-10-03 06:08 | disposition home or self-care (01) ==
PROVIDERS: Emergency Medicine; Emergency Provider Emergency Medicine; PCP Family Medicine
DX: F41.9 Anxiety disorder, unspecified (principal); R06.02 Shortness of breath; Z11.52 Encounter for screening for COVID-19; F17.210 Nicotine dependence, cigarettes, uncomplicated; J44.9 Chronic obstructive pulmonary disease, unspecified; I10 Essential (primary) hypertension
CPT/HCPCS: 36415; 71045; 80053; 83880; 85025; 87637; 93005; 94760; 99285

== ENCOUNTER 2024-11-24 21:32 | Emergency (ER) | payer MEDICAID, SELFPAY ==
[2023-07-29 15:49] VITALS: BP 150/88; BMI 34.8
[2024-11-24 21:40] VITALS: BP 154/71; PULSE 106; RESP 30; TEMP 36.6; O2SAT 80; BMI 37.1
--- NOTE | 2024-11-24 22:54 | XRR_ITS ---
PROCEDURE INFORMATION: Exam: XR Chest Exam date and time: 11/24/2024 11:01 PM Age: 64 years old Clinical indication: Shortness of breath; C/O cough with SOB. History of copd. TECHNIQUE: Imaging protocol: Radiologic exam of the chest. Views: 2 views. COMPARISON: CR XR chest 1V portable [id number] 10/02/2024 10:17 PM FINDINGS: Lungs: Diffuse groundglass opacities on a background of chronic interstitial change. Pleural spaces: Unremarkable. No pleural effusion. No pneumothorax. Heart/Mediastinum: Unremarkable. No cardiomegaly. Bones/joints: Advanced degenerative change right shoulder, similar to prior. XR/XR chest 2V* [id number] IMPRESSION: Findings most consistent with edema superimposed chronic interstitial fibrotic change.
[2024-11-24 22:59] VITALS: BP 131/84; PULSE 91; RESP 20; O2SAT 97
[2024-11-24 23:16] LABS: Basophils % 0.2 %; Eosinophils # 0.1 10^3/uL (0.0-0.8); Eosinophils % 1.5 %; Hematocrit 37.1 % (36-47); Lymphocytes # 0.8 10^3/uL (0.8-4.8); Lymphocytes % 8.3 %; Mean Corpuscular HGB Conc 31.3 g/dL (30-55); Mean Corpuscular Hemoglobin 28.2 pg (27-33); Mean Platelet Volume 8.6 fL (7.4-10.4); Monocytes # 0.8 10^3/uL (0.2-0.9); Monocytes % 8.9 %; Neutrophils # 7.48 10^3/uL (1.8-7.7); Neutrophils % 80.5 %; Nucleated Red Blood Cells % 0 %; Platelet Count 254 10^3/cmm (157-399); Red Blood Count 4.12 10^6/uL (3.85-5.65); Red Cell Distribution Width 13.2 % (12.1-15.1)
[2024-11-24 23:44] LABS: Alanine Aminotransferase 14 U/L (0-33); Albumin Level 3.9 g/dL (3.5-5.2); Alkaline Phosphatase 127 U/L (35-105); Anion Gap 15.6 (5-19); Aspartate Amino Transferase 37 U/L (0-32); Blood Urea Nitrogen 7 mg/dL (8-23); Calcium 9.2 mg/dL (8.5-10.5); Carbon Dioxide 26 mmol/L (22-29); Chloride 101 mmol/L (98-107); Globulin 3.6 g/dL (1.3-4.6); Glucose 107 mg/dL (65-115); NT Pro B Type Natriuretic Pept 552 pg/mL (0-125); Osmolality Calculated 286 mOsm/kg (285-295); Potassium 3.6 mmol/L (3.5-5.1); Sodium 139 mmol/L (136-145); Total Bilirubin 0.7 mg/dL (0.15-1.2); Total Protein 7.5 g/dL (6.6-8.7)
--- NOTE | 2024-11-24 23:47 | W.ED.SOB ---
HPI - SOB/Dyspnea General: Chief Complaint: Shortness of Breath/Dyspnea Stated Complaint: SOB Time Seen by Provider: 11/24/24 22:40 History of Present Illness: HPI Narrative: Arvind, a patient with a history of COPD, presents to the emergency department with acute shortness of breath and increased wheezing. The patient reports that he couldn't breathe after getting up to use the bathroom. He states that his breathing difficulties worsened rapidly, and he was screaming for any help as his home oxygen was not providing sufficient relief. The patient mentions that he has been experiencing increased coughing and wheezing for the past couple of days. He describes his breathing as getting bad and reports feeling nervous about his condition. Arvind is prescribed home oxygen, typically using 2 liters but increasing to 3 liters when he experiences breathing difficulties or excessive coughing. He expresses concern about a possible infection due to the increased coughing. Arvind admits to ongoing tobacco use, stating he is trying real hard to quit. He reports smoking only 2 half-a-ones yesterday and is using nicotine patches. He mentions being prescribed Chantix in the past, which was effective, and is planning to see his psychiatric doctor to restart this medication. The patient also discloses recent methamphetamine use, acknowledging it as terrible for your lungs and potentially contributing to his increased coughing. Regarding his living situation, Arvind mentions applying for housing last week or the week before, expressing a desire to move out of his current apartment due to the prevalence of drugs in the area. He states he has been doing good and not throwing up for years, suggesting some improvement in his overall health status prior to this acute episode. Related Data Previous Rx's ?Medication ?Instructions ?Recorded epinephrine 0.3 mg/0.3 mL 0.3 mg (0.3 mL) IM Q15M PRN 12/04/22 injection, auto-injector (EpiPen anaphylaxis #2 ea 2-Reji) Rollaid with chair #1 ea 02/03/23 wheelchair #1 ea 03/01/24 RIGHT BTK prosthetic with supplies #1 ea 03/14/24 fluoxetine 40 mg capsule 80 mg (2 x 40 mg) PO QAM 30 days 05/04/24 #60 caps quetiapine 400 mg tablet 400 mg PO BEDTIME #30 tabs 05/04/24 albuterol sulfate 2.5 mg/3 mL 2.5 mg (3 mL) inhalation Q4H PRN 10/05/24 (0.083 %) solution for nebulization shortness of breath or wheezing #180 mL albuterol sulfate 90 mcg/actuation 1 puff inhalation QID PRN 10/05/24 aerosol inhaler (Ventolin HFA) shortness of breath or wheezing #8.5 grams bupropion HCl 150 mg 24 hr tablet, 150 mg PO DAILY #30 tabs 10/05/24 extended release ipratropium 0.5 mg-albuterol 3 mg 3 ml inhalation QID PRN wheezing 10/05/24 (2.5 mg base)/3 mL nebulization #90 mL soln lamotrigine 200 mg tablet 200 mg PO QAM #30 tabs 10/05/24 levofloxacin 750 mg tablet 750 mg PO DAILY #7 tabs 10/05/24 liraglutide 0.6 mg/0.1 mL (18 mg/3 See Rx Instructions .Route 10/05/24 mL) subcutaneous pen injector .COMPLEX #9 mL (HomeSpacetoza 3-Reji) nebulizer and supplies #1 ea 10/05/24 nebulizer tubing and mask #1 ea 10/05/24 omeprazole 40 mg capsule,delayed See Rx Instructions .Route 10/05/24 release .COMPLEX #90 caps pen needle, diabetic 32 gauge x #100 ea 10/05/24/32 prednisone 20 mg tablet 40 mg (2 x 20 mg) PO DAILY 3 days 10/05/24 #6 tabs umeclidinium 62.5 mcg-vilanterol 1 inh inhalation DAILY 30 days #60 10/05/24 25 mcg/actuation powdr for ea inhalation (Anoro Ellipta) meloxicam 15 mg tablet See Rx Instructions .Route 10/23/24 .COMPLEX #30 tabs ondansetron 4 mg disintegrating 4 mg PO Q8H PRN Nausea And 11/03/24 tablet Vomiting #30 tabs gabapentin 300 mg capsule 300 mg PO TID #90 caps 11/21/24 mirtazapine 15 mg tablet 15 mg PO .qhs #30 tabs 11/23/24 Allergies Allergy/AdvReac Type Severity Reaction Status Date / Time bee venom protein (honey bee) Allergy ALGY-Anaphy Verified 10/05/24 11:22 laxis Penicillins Allergy ALGY-Rash Verified 10/05/24 11:22 venom-wasp protein Allergy ALGY-Anaphy Verified 10/05/24 11:22 laxis Review of Systems General: Reports: 10 or more systems reviewed and unremarkable except in HPI and below PFSH ED PFSH: Medical History Chronic lower back pain Hepatitis C IV drug user Prolonged Q-T interval on ECG Cervical neuropathic pain Cough Metabolic encephalopathy COPD (chronic obstructive pulmonary disease) Altered mental status Partial small bowel obstruction Pulmonary hypertension Amphetamine addiction Aspiration of foreign body in respiratory tract Interstitial lung disease Respiratory failure with hypoxia Psychiatric care Hepatitis C, chronic Chronic pain syndrome PVD (peripheral vascular disease) with claudication Opioid dependence, in remission Other stimulant dependence, in remission Borderline personality disorder Schizoaffective disorder, bipolar type COPD (chronic obstructive pulmonary disease) Chronic idiopathic pain syndrome History of intravenous drug abuse GERD (gastroesophageal reflux disease) DJD (degenerative joint disease), lumbar DDD (degenerative disc disease), cervical Anxiety Surgical History Hx of fusion of cervical spine Hx of right BKA H/O tubal ligation S/P cholecystectomy Hx of BKA S/P tonsillectomy Family History Father Cancer lung Hypertension Diabetes Mother Hypertension Lung disease Diabetes Sister Diabetes Brother Diabetes Other CAD (coronary artery disease) Denies family history of Clotting disorder Dementia Hyperlipidemia Psychiatric illness Chronic kidney disease (CKD) Anesthesia complication Bleeding disorder Stroke Social History Smoking and tobacco/nicotine status: former use of tobacco/nicotine Quit status (tobacco/nicotine): has tried quititng Second hand smoke exposure: Yes Alcohol intake: former Substance/Drug Use: former Date of last use: relapsed and overdosed around Sep, clean since then Lives independently: Yes Household members: none Marital status: Current occupational status: disabled Do you think of yourself as: Straight/Heterosexual Current gender identity: Female Female Reproductive History: Spontaneous abortions: No Physical Exam Const: COMMON NORMALS: no acute distress, average body habitus, patient oriented x3, no limitations, healthy appearing, alert and well nourished HENMT: COMMON NORMALS: normocephalic, atraumatic, hearing grossly normal bilaterally, external ears normal, Normal external nose present, moist oral mucous membranes and oropharynx normal HEAD & SCALP: normocephalic and atraumatic NOSE: Normal external nose present EXTERNAL EAR: Yes external ears normal Neck/C-Spine: COMMON NORMALS: no JVD Chest: COMMONS NORMALS: normal inspection of the chest and normal palpation of entire chest wall Resp: COMMON NORMALS: normal respiratory effort, No retractions, No use of accessory muscles and clear to auscultation bilaterally AUSCULTATION: clear to auscultation bilaterally and wheezes expiratory wheezes and throughout Cardio: COMMON NORMALS: no JVD, regular rate, regular rhythm, S1 normal heart sound present, S2 normal heart sound present, No gallops present (Cardio), No clicks present (Cardio), No murmurs present (Cardio) and No rub (Cardio) RATE: regular rate RHYTHM: regular rhythm HEART SOUNDS: S1 normal heart sound present and S2 normal heart sound present GI: COMMON NORMALS: Normal to inspection, nondistended, normoactive bowel sounds present, Soft to palpation, non-tender and No hepatosplenomegaly present PALPATION: Yes Soft to palpation and Yes No hepatosplenomegaly present Neuro: COMMON NORMALS: patient oriented x3 SENSORIUM/ORIENTATION: Yes alert Course Vital Signs: Vital signs: Vital Signs Temperature 98 F 11/24/24 21:40 Pulse Rate 89 11/25/24 03:39 Respiratory Rate 18 11/25/24 03:39 Blood Pressure 129/64 11/25/24 03:39 Pulse Oximetry 98 11/25/24 03:39 Oxygen Delivery Me thod Nasal Cannula 11/25/24 03:39 Oxygen Flow Rate 3 11/25/24 03:39 MDM - SOB/Dyspnea Medical Decision Making 64-year-old female presents to the emergency department for evaluation of shortness of breath. Initially upon arrival emergency department she had significantly low O2 saturation, tachypnea, and tachycardia. With a couple of DuoNeb treatments her exam improved and her breath sounds became clear. However, she did start to become tremulous and anxious. This continued to keep her O2 saturations on the lower side despite adequate O2. She was given 1 mg of Ativan which calmed her anxiety and her O2 saturation improved to 98% at her baseline 3 L O2. Discussed with the patient discontinuing the use of methamphetamines as this is very dangerous given her lung condition and poor health. Patient voiced understanding. Patient to resume her home medications. Follow-up with her primary care physician. Return precautions were discussed and the patient was discharged home in good condition. Lab Data 11/24/24 23:10 11/24/24 23:10 Labs/Radiology: Radiology Impressions Chest X-Ray 11/24/24 22:54 IMPRESSION: Findings most consistent with edema superimposed chronic interstitial fibrotic change. Laboratory Results WBC 9.30 10^3/uL (3.29-11.43) 11/24/24 23:10 RBC 4.12 10^6/uL (3.85-5.65) 11/24/24 23:10 Hgb 11.60 g/dL (11.27-16.99) 11/24/24 23:10 Hct 37.1 % (36-47) 11/24/24 23:10 MCV 90.0 fl (85-98) 11/24/24 23:10 MCH 28.2 pg (27-33) 11/24/24 23:10 MCHC 31.3 g/dL (30-55) 11/24/24 23:10 RDW 13.2 % (12.1-15.1) 11/24/24 23:10 Plt Count 254 10^3/cmm (157-399) 11/24/24 23:10 MPV 8.6 fL (7.4-10.4) 11/24/24 23:10 Neut % (Auto) 80.5 % 11/24/24 23:10 Lymph % (Auto) 8.3 % 11/24/24 23:10 [place] % (Auto) 8.9 % 11/24/24 23:10 Eos % (Auto) 1.5 % 11/24/24 23:10 Baso % (Auto) 0.2 % 11/24/24 23:10 Neut # (Auto) 7.48 10^3/uL (1.8-7.7) 11/24/24 23:10 Lymph # (Auto) 0.8 10^3/uL (0.8-4.8) 11/24/24 23:10 [place] # (Auto) 0.8 10^3/uL (0.2-0.9) 11/24/24 23:10 Eos # (Auto) 0.1 10^3/uL (0.0-0.8) 11/24/24 23:10 Baso # (Auto) 0.0 10^3/uL (0.0-0.1) 11/24/24 23:10 Nucleated RBC % (auto) 0 % 11/24/24 23:10 Nucleated RBCs # 0.0 /100WBC 11/24/24 23:10 Specimen Type Venous 11/24/24 23:24 Sample Site Not specified 11/24/24 23:24 Darryl Test N/a 11/24/24 23:24 VBG pH 7.40 (7.32-7.42) 11/24/24 23:24 VBG pCO2 44.8 mmHg (41-51) 11/24/24 23:24 VBG pO2 28.3 mmHg (25-40) 11/24/24 23:24 VBG HCO3 27.9 mmol/L (24-28) 11/24/24 23:24 VBG Base Excess 2.7 mmol/L (-3.0-3.0) 11/24/24 23:24 VBG Hematocrit 35.1 % (37-47) L 11/24/24 23:24 Health Care / Medical Job Titles ID [id number] 11/24/24 23:24 Sodium 139 mmol/L (136-145) 11/24/24 23:10 Potassium 3.6 mmol/L (3.5-5.1) 11/24/24 23:10 Chloride 101 mmol/L (98-107) 11/24/24 23:10 Carbon Dioxide 26 mmol/L (22-29) 11/24/24 23:10 Anion Gap 15.6 (5-19) 11/24/24 23:10 BUN 7 mg/dL (8-23) L 11/24/24 23:10 Creatinine 0.5 mg/dL (0.5-0.9) 11/24/24 23:10 GFR Calculation 125.0 mL/min (90-130) 11/24/24 23:10 Glucose 107 mg/dL (65-115) 11/24/24 23:10 Calculated Osmolality 286 mOsm/kg (285-295) 11/24/24 23:10 Calcium 9.2 mg/dL (8.5-10.5) 11/24/24 23:10 Total Bilirubin 0.7 mg/dL (0.15-1.2) 11/24/24 23:10 AST 37 U/L (0-32) H 11/24/24 23:10 ALT 14 U/L (0-33) 11/24/24 23:10 Alkaline Phosphatase 127 U/L (35-105) H 11/24/24 23:10 NT-Pro-B Natriuret Pep 552 pg/mL (0-125) H 11/24/24 23:10 Total Protein 7.5 g/dL (6.6-8.7) 11/24/24 23:10 Albumin 3.9 g/dL (3.5-5.2) 11/24/24 23:10 Globulin 3.6 g/dL (1.3-4.6) 11/24/24 23:10 All radiology interpretation(s) finalized by discharge Discharge Plan Discharge Patient Disposition: Home Clinical Impression: SOB (shortness of breath), Anxiety disorder with panic attacks, Episodic methamphetamine abuse Fluid overload, unspecified Qualifiers: Hypervolemia type: unspecified Qualified Code(s): E87.70 - Fluid overload, unspecified Condition: Stable Prescriptions: No Action epinephrine [EpiPen 2-Reji] 0.3 mg/0.3 mL auto-injector 0.3 mg IM Q15M PRN (Reason: anaphylaxis) Qty: 2 0RF Rx Instructions: for 2 doses (DME) wheelchair See Rx Instructions .Route .MEDSUPPLY Qty: 1 0RF Rx Instructions: As directed fluoxetine 40 mg capsule 80 mg PO QAM 30 Days Qty: 60 6RF quetiapine 400 mg tablet 400 mg PO BEDTIME Qty: 30 6RF prednisone 20 mg tablet 40 mg PO DAILY 3 Days Qty: 6 0RF levofloxacin 750 mg tablet 750 mg PO DAILY Qty: 7 0RF ipratropium-albuterol 0.5 mg-3 mg(2.5 mg base)/3 mL solution for nebulization 3 ml inhalation QID PRN (Reason: wheezing) Qty: 90 2RF (DME) Rollaid with chair See Rx Instructions .Route .MEDSUPPLY Qty: 1 0RF Rx Instructions: As directed (DME) RIGHT BTK prosthetic with supplies See Rx Instructions .Route .MEDSUPPLY Qty: 1 0RF Rx Instructions: As directed albuterol sulfate 2.5 mg /3 mL (0.083 %) solution for nebulization 2.5 mg inhalation Q4H PRN (Reason: shortness of breath or wheezing) Qty: 180 5RF albuterol sulfate [Ventolin HFA] 90 mcg/actuation HFA aerosol inhaler 1 puff inhalation QID PRN (Reason: shortness of breath or wheezing) Qty: 8.5 3RF bupropion HCl 150 mg tablet extended release 24 hr 150 mg PO DAILY Qty: 30 6RF lamotrigine 200 mg tablet 200 mg PO QAM Qty: 30 6RF Victoza 3-Reji 0.6 mg/0.1 mL (18 mg/3 mL) pen injector See Rx Instructions .ROUTE .COMPLEX Qty: 9 2RF Dose Instruction: inject 1.8mg SUBCUTANEOUSLY ONCE DAILY FOR SEVEN DAYS, THEN 1.2mg daily thereafter Rx Instructions: inject 1.8mg SUBCUTANEOUSLY ONCE DAILY FOR SEVEN DAYS, THEN 1.2mg daily thereafter Anoro Ellipta 62.5-25 mcg/actuation blister with device 1 inh inhalation DAILY 30 Days Qty: 60 3RF (DME) nebulizer and supplies See Rx Instructions .Route .MEDSUPPLY Qty: 1 0RF Rx Instructions: As directed (DME) nebulizer tubing and mask See Rx Instructions .Route .MEDSUPPLY Qty: 1 0RF Rx Instructions: As directed omeprazole 40 mg capsule,delayed release(DR/EC) See Rx Instructions .ROUTE .COMPLEX Qty: 90 1RF Dose Instruction: TAKE ONE CAPSULE BY MOUTH DAILY Rx Instructions: TAKE ONE CAPSULE BY MOUTH DAILY (DME) pen needle, diabetic 32 gauge x needle See Rx Instructions .Route Qty: 100 2RF Rx Instructions: 1 x daily meloxicam 15 mg tablet See Rx Instructions .ROUTE .COMPLEX Qty: 30 1RF Dose Instruction: TAKE ONE TABLET BY MOUTH EVERY MORNING Rx Instructions: TAKE ONE TABLET BY MOUTH EVERY MORNING ondansetron 4 mg tablet,disintegrating 4 mg PO Q8H PRN (Reason: Nausea And Vomiting) Qty: 30 0RF gabapentin 300 mg capsule 300 mg PO TID Qty: 90 0RF mirtazapine 15 mg tablet 15 mg PO .qhs Qty: 30 5RF Discharge Orders: Discharge ED (Routine); Ordered 11/25/24 Ordered By: Moody Law Referrals: Prasad Rebollar MD [Primary Care Provider] - Discharge Diet: Usual diet Discharge Activity: Increase activity as tolerated Patient Instructions: Opioid Safety, Pain Management Activity Restrictions/Additional Instructions: Please follow-up with your primary care physician. Return to the emergency department with any new or worsening symptoms. It is imperative that you discontinue the use of methamphetamines. 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
[2024-11-25] VITALS: BP 148/74; PULSE 92; RESP 18; O2SAT 99
[2024-11-25 00:04] LABS: Base Excess VBG 2.7 mmol/L (-3.0-3.0); Blood Gas Sample Site Not specified; Blood Gas Sample Type Venous; HCO3 VBG 27.9 mmol/L (24-28); PCO2 VBG 44.8 mmHg (41-51); PO2 VBG 28.3 mmHg (25-40); Venous Blood Gas Hematocrit 35.1 % (37-47)
[2024-11-25 00:45] VITALS: PULSE 89; RESP 18; O2SAT 92
[2024-11-25] MEDS: ipratropium-albuterol 3 mL Neb INHALATION (00:45)
[2024-11-25] MEDS: FUROsemide 10 mg/mL SDV 2mL 20 MG IVP (00:52)
[2024-11-25 01:00] VITALS: BP 156/78; PULSE 90; RESP 18; O2SAT 92
[2024-11-25 02:00] VITALS: BP 133/72; PULSE 88; RESP 18; O2SAT 93
[2024-11-25] MEDS: LORazepam 2 mg/mL INJ 1 mL IVP (02:22)
[2024-11-25] MEDS: albuterol 2.5 mg/3 mL Neb INHALATION (02:45)
[2024-11-25 03:39] VITALS: BP 129/64; PULSE 89; RESP 18; O2SAT 98
[2024-11-25 06:41] VITALS: BP 129/64; PULSE 87; RESP 16; O2SAT 96
--- NOTE | 2024-11-25 07:20 | ECG_ITS ---
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
== END 2024-11-25 10:59 | disposition home or self-care (01) ==
PROVIDERS: Emergency Provider General Practice; PCP Family Medicine
DX: R06.02 Shortness of breath (principal); F41.0 Panic disorder [episodic paroxysmal anxiety]; F15.10 Other stimulant abuse, uncomplicated; E87.70 Fluid overload, unspecified; Z87.891 Personal history of nicotine dependence; J44.9 Chronic obstructive pulmonary disease, unspecified; I10 Essential (primary) hypertension
CPT/HCPCS: 36415; 71046; 80053; 82803; 83880; 85025; 93005; 94640; 96374; 96375; 99285; J1940; J2060; J7613; J9999

== ENCOUNTER 2025-06-19 09:57 | Outpatient (CLI) | payer MEDICAID, SELFPAY ==
[2023-07-29 15:49] VITALS: BP 150/88; BMI 34.8
--- NOTE | 2025-06-19 10:15 | CT_ITS ---
WS: [id number] LDCT LUNG CANCER SCREENING TECHNIQUE: Noncontrast CT of the chest with coronal and sagittal reformatted images. CLINICAL INFORMATION: screening COMPARISON: None. DLP: 127.51 mGy.cm DIvol: Mean CTDIvol: 3.20 (mGy) All CT scans at [facility] use at least one of these dose optimization techniques: automated exposure control; mA and/or kV adjustment per patient size (includes targeted exams where dose is matched to clinical indication); or iterative reconstruction. FINDINGS: Chronic emphysematous changes worse in the RIGHT upper lobe. Interstitial thickening within both lungs. Traction bronchiectasis in the RIGHT upper lobe and RIGHT lower lobe. Recommend correlation for interstitial lung disease. Recommend correlation with pulmonary function tests. No suspicious pulmonary parenchymal opacities. Normal caliber thoracic aorta. Aortic calcification. Coronary calcification. No mediastinal or hilar lymphadenopathy. No axillary lymphadenopathy. Cholecystectomy clips. Tiny esophageal hiatal hernia. Mild thoracic curve. Mild thoracic kyphosis. Hypertrophic changes thoracic spine. CT/CT lung screening [id number] IMPRESSION: LUNG-RADS: 2-Benign Appearance or Behavior FOLLOW UP: 12 Month: Continue annual screening with LDCT
== END 2025-06-19 09:58 | disposition home or self-care (01) ==
LOC: RAD 09:58
PROVIDERS: PCP Family Medicine; Visit Provider Family Medicine
DX: Z12.2 Encounter for screening for malignant neoplasm of respiratory organs (principal); F17.219 Nicotine dependence, cigarettes, with unspecified nicotine-induced disorders; J43.8 Other emphysema; R91.8 Other nonspecific abnormal finding of lung field; J47.9 Bronchiectasis, uncomplicated; I70.0 Atherosclerosis of aorta; I25.10 Atherosclerotic heart disease of native coronary artery without angina pectoris; Z90.49 Acquired absence of other specified parts of digestive tract; M43.8X4 Other specified deforming dorsopathies, thoracic region; M40.294 Other kyphosis, thoracic region; M89.38 Hypertrophy of bone, other site
CPT/HCPCS: 71271

== ENCOUNTER 2025-07-23 14:35 | Outpatient (CLI) | payer MEDICAID, SELFPAY ==
[2023-07-29 15:49] VITALS: BP 150/88; BMI 34.8
--- NOTE | 2025-07-23 09:00 | MRR_ITS ---
PROCEDURE INFORMATION: Exam: MR Lumbar Spine Without Contrast Exam date and time: 07/23/2025 3:41 PM Age: 65 years old Clinical indication: Low back pain; Prior surgery; Surgery date: 6+ months; Surgery type: Tubal ligation, csp fusion, tonsils, gb, lt ankle, lt hip, RT bka; Additional info: Chronic lower back pain. No history of recent trauma or surgery is otherwise currently provided. TECHNIQUE: Imaging protocol: Magnetic resonance imaging of the lumbar spine without contrast. 165image(s) are provided. Other technique: Multiplanar, multisequence images are provided. COMPARISON: CT abdomen pelvis wo con [id number] 06/04/2022 10:51 AM as well as CT lumbar spine report 12/15/2014. No previous MRI of the lumbar spine is currently available. FINDINGS: Bones/joints: There appear to be multilevel degenerative changes of the cervical spine albeit with incomplete overall inclusion. There are some vertebral hemangioma appearing changes overall. Labeling from superior, there appear to be six lumbar type vertebral bodies. The lower most segment for purposes of this examination will therefore be labeled as lumbosacral transitional, L6-S1. There is some disc desiccation demonstrated.No diffuse acute abnormal marrow signal intensity is appreciated.There is multilevel facet and ligamentous hypertrophy. There appear to be multilevel degenerative, disc changes of the thoracic spine albeit with incomplete inclusion.If there is persistent pain or radicular-type symptoms then consider cervicothoracic MRI. There appear to be some degenerative changes of the sacroiliac joints. Consider also if there is history of previous sacroiliitis. Spinal cord: The conus ends at around the L1 level with no diffuse acute abnormal signal currently appreciated. There are levels of cauda equina undulation overall present. T12-L1: There is some partial vertebral fusion appearance anteriorly predominance of the thoracolumbar junction similar overall. No significant interval spinal canal or foraminal narrowing changes are currently appreciated. L1-L2: L1-L2 demonstrates some disc space narrowing with broad-based concentric disc bulging and mild thecal sac triangulation. There is some lateral bulging and spurring with right-sided predominance. The findings contribute to some moderate overall left as well as moderate to significant right foraminal narrowing. L2-L3: L2-L3 demonstrates some broad-based concentric disc bulging with thecal sac triangulation narrowing exacerbated with posterior element and facet hypertrophy. There is some lateral bulging and spurring present. This contributes to some moderate right as well as moderate to significant left foraminal narrowing. L3-L4: L3-L4 demonstrates some broad-based concentric disc bulging with thecal sac triangulation, narrowing. There is some lateral bulging and spurring present. The findings contribute to some moderate right as well as moderate to significant left foraminal narrowing. L4-L5: There are some endplate degenerative changes present for example including with some Modic type 1 contribution of the L4-L5 level. L4-L5 demonstrates broad-based concentric disc bulging with small central protrusion and thecal sac triangulation, narrowing exacerbated with ligamentous and facet hypertrophy. There is some annular fissuring. There is lateral bulging and spurring present. The findings contribute to some significant foraminal narrowing overall. L5-L6: L5-S1 demonstrates disc space narrowing with the anterolisthesis. There is broad-based bulging and thecal sac triangulation, narrowing correspondingly along with some posterior element hypertrophy. There is some lateral bulging and spurring. The findings contribute to some moderate overall left as well as significant right foraminal narrowing. There is anterolisthesis demonstrated of the around 7 mm. L6-S1: L6-S1, lower most disc segment, demonstrates some marginal concentric bulging, lateral bulging and subtle annular fissuring facet hypertrophy. The findings contribute to some [id number] left as well as moderate right foraminal narrowing. Soft tissues: No significant subcutaneous fluid collections are appreciated. There does appear to be some posterior dependent subcutaneous edema. There is some motion artifact present. No other significant interval changes are appreciated. MR/MR lumbar spine wo con* [id number] IMPRESSION: There are chronic advanced multilevel degenerative changes throughout the lumbar spine contributing to overall levels of thecal sac triangulation, canal narrowing as well as moderate to significant foraminal narrowing.
== END 2025-07-23 14:36 | disposition home or self-care (01) ==
LOC: RAD 14:36
PROVIDERS: PCP Family Medicine; Visit Provider Family Medicine
DX: M50.33 Other cervical disc degeneration, cervicothoracic region (principal); M48.03 Spinal stenosis, cervicothoracic region; M51.379 Other intervertebral disc degeneration, lumbosacral region without mention of lumbar back pain or lower extremity pain; M48.07 Spinal stenosis, lumbosacral region
CPT/HCPCS: 72148